=== PATIENT | male | born 1945 | race Caucasian/White ===

== ENCOUNTER 2016-04-23 00:49 | Inpatient (IN) | payer OTHER, MEDICAID ==
[~2016-04-23] VITALS: Ht 162.6 cm; Wt 93.0 kg
[2016-04-23] VITALS (7 sets, daily range): BP systolic 147–172; BP diastolic 76–79; PULSE 53–55; RESP 18–21; TEMP 97.9; Ht 162.6 cm; Wt 93.0 kg
[~2016-04-23 00:49] MED LIST: ACAR25TA7 PO; AMLO-147 PO; AMLO5TAB4 PO; APR50 PO; ASPI-716 PO; ASPI81TA3 PO; ATOR10TA65 PO; CARV12.579 PO; CARV6.25 PO; CLOP75TA27 PO; CLOP75TA28 PO; GABA100C14 PO; GLU5XL PO; HYDR12.58 PO; ISOS30TA5 PO; LANT3I SC; LOSA100T7 PO; NIT4 SL; SIMV40TA7 PO; SMV40T PO
--- NOTE | 2016-04-23 01:11 | ERA ---
ER Documentation Chief Complaint Date/Time DATE: 04/23/16 TIME: 01:11 Chief Complaint chest pain,received 1 spray nitro from paramedics HPI The patient is a 70-year-old male, presenting to the ER because of acute substernal chest pain that began shortly prior to arrival. He was treated with 1 spray of nitroglycerin by EMS with good response. The has minimal chest pain at this time, complaining of anxiety, denies headache, neck pain, complains of minimal dyspnea, denies abdominal pain, vomiting, dysuria, diarrhea, constipation. The chest pain worse with any radiation, he denies any chest pain with exertion of vomiting or diaphoresis. He does not smoke nor drink Past medical history: CAD, hypertension, diabetes mellitus, dyslipidemia, chronic kidney disease, BPH, anxiety Past surgical history: Stent PCI ROS All systems reviewed and are negative except as per history of present illness. Medications Home Meds Active Scripts Clopidogrel Bisulfate (Clopidogrel) 75 Mg Tablet, 75 MG PO DAILY, #30 TAB Prov:ANGELINE CABRAL 01/21/15 Nitroglycerin* (Nitrostat*) 25 Tab Subl, 0.4 MG SL .Q5M UP TO 3 DOSES Y for CHEST PAIN, #30 Prov:JAD SHIN 07/14/14 Hydralazine Hcl* (Hydralazine Hcl*) 50 Mg Tab, 100 MG PO Q8 for 30 Days, TAB Prov:JAD SHIN 07/14/14 Isosorbide Mononitrate* (Isosorbide Mononitrate*) 30 Mg Tabsr, 30 MG PO DAILY for 30 Days Prov:JAD SHIN 07/14/14 Reported Medications Acarbose* (Acarbose*) 25 Mg Tablet, 25 MG PO TID for 30 Days, #30 TAB 02/02/16 Insulin Glargine* (Lantus*) 100 Unit/Ml Soln, 1 UNIT SC BID, #1 VIAL 02/02/16 Aspirin (Aspirin) 81 Mg Chew, 81 MG PO DAILY, TAB.CHEW 02/02/16 Losartan Potassium* (Losartan Potassium*) 100 Mg Tablet, 100 MG PO DAILY, TAB 02/02/16 Amlodipine Besylate* (Amlodipine Besylate*) 10 Mg Tablet, 10 MG PO DAILY, #30 TAB 02/02/16 Atorvastatin (Atorvastatin) 10 Mg Tablet, 1 MG PO QHS, #30 TAB 02/02/16 Clopidogrel Bisulfate (Clopidogrel) 75 Mg Tablet, 75 MG PO DAILY, #30 TAB 02/02/16 Simvastatin (Simvastatin) 40 Mg Tablet, 40 MG PO QHS, #30 TAB 02/02/16 Carvedilol* (Carvedilol*) 12.5 Mg Tablet, 12.5 MG PO BID, #60 TAB 02/02/16 Gabapentin* (Gabapentin*) 100 Mg Capsule, 100 MG PO BID, #90 CAP 02/02/16 Losartan Potassium* (Losartan Potassium*) 100 Mg Tablet, 100 MG PO DAILY, TAB 07/12/14 Gabapentin* (Gabapentin*) 100 Mg Capsule, 100 MG PO BID, CAP 07/12/14 Insulin Glargine* (Lantus*) 100 Unit/Ml Soln, 0 SC BID Y for sliding scale , EA 07/12/14 Amlodipine Besylate* (Norvasc*) 5 Mg Tablet, 5 MG PO DAILY, TAB 07/12/14 Hydrochlorothiazide* (Hydrochlorothiazide*) 12.5 Mg Tablet, 12.5 MG PO DAILY, TAB 07/12/14 Aspirin* (Ecotrin*) 81 Mg Tablet.dr, 81 MG PO DAILY, TAB 01/26/14 Glipizide XL* (Glipizide XL*) 5 Mg Tabsr, 10 MG PO DAILY, TAB 01/26/14 Clopidogrel Bisulfate (Clopidogrel) 75 Mg Tablet, 75 MG PO DAILY, TAB 01/26/14 Simvastatin (Simvastatin) 40 Mg Tablet, 40 MG PO HS, TAB 01/26/14 Carvedilol* (Coreg*) 6.25 Mg Tablet, 6.25 MG PO BID, TAB 07/30/13 Allergies Allergies: Coded Allergies: Penicillins (Verified Allergy, Mild, 07/12/14) PMhx/Soc History of Surgery: Yes (prostate surgery, PCI) Anesthesia Reaction: No Hx Neurological Disorder: No Hx Respiratory Disorders: No Hx Cardiac Disorders: No (CAD) Hx Psychiatric Problems: No Hx Miscellaneous Medical Probl: No Hx Alcohol Use: No Hx Substance Use: No Hx Tobacco Use: No Physical Exam Vitals Vital Signs Date Time Temp Pulse Resp B/P Pulse Ox O2 Delivery O2 Flow Rate FiO2 04/23/16 04:17 52 14 158/73 98 04/23/16 00:56 97.9 61 17 166/78 98 Physical Exam Const: No acute distress. Head: Atraumatic. Eyes: Normal Conjunctiva. ENT: Normal External Ears, Nose and Mouth. Neck: Full range of motion. No meningismus. Resp: Clear to auscultation bilaterally. Cardio: Regular rate and rhythm, no murmurs. Abd: Soft, non distended, normal bowel sounds, non tender. Skin: No petechiae or rashes. Back: No midline or flank tenderness. Ext: No cyanosis, or edema. Neur: Awake and alert. No focal deficit Psych: Normal Mood and Affect. Result Diagram: 04/23/1613104/23/16131 Results 24 hrs Laboratory Tests Test 04/23/16 01:32 Activated Partial Thromboplast Time 27.2Sec Anion Gap 15 B-Type Natriuretic Peptide 615PG/ML Basophils # 0.110^3/ul Basophils % 0.8% Blood Urea Nitrogen 41mg/dl Calcium Level 8.8mg/dl Carbon Dioxide Level 27mmol/L Chloride Level 98mmol/L Creatinine 2.15mg/dl Eosinophils # 0.510^3/ul Eosinophils % 5.2% Glucose Level 192mg/dl Hematocrit 37.8% Hemoglobin 13.1g/dl INR International Normalized Ratio 0.89 Lymphocytes # 1.110^3/ul Lymphocytes % 12.3% Mean Corpuscular Hemoglobin 29.4pg Mean Corpuscular Hemoglobin Concent 34.7g/dl Mean Corpuscular Volume 84.9fl Mean Platelet Volume 10.2fl Monocytes # 0.810^3/ul Monocytes % 9.4% Neutrophils # 6.210^3/ul Neutrophils % 72.0% Nucleated Red Blood Cells # 0.010^3/ul Nucleated Red Blood Cells % 0.0/100WBC Platelet Count 46427^3/UL Potassium Level 3.5mmol/L Prothrombin Time 12.0Sec Prothrombin Time Ratio 0.9 Red Blood Count 4.4510^6/ul Red Cell Distribution Width 11.9% Sodium Level 136mmol/L Troponin I 0.024ng/ml White Blood Count 8.610^3/ul Current Medications Medications (Trade) Dose Ordered Sig/Monty Route PRN Reason Start Time Stop Time Status Last Admin Dose Admin Aspirin (Aspirin) 162 mg ONCE ONCE PO 04/23/16 03:30 04/23/16 03:31 DC 04/23/16 04:32 Nitroglycerin (Nitroglycerin 2% Oint) 1 inch ONCE ONCE TD 04/23/16 03:30 04/23/16 03:31 DC 04/23/16 04:32 Amlodipine Besylate (Norvasc) 10 mg DAILY PO 04/23/16 09:00 UNV Aspirin (Aspirin) 81 mg DAILY PO 04/23/16 09:00 Atorvastatin Calcium (Lipitor) 1 mg QHS PO 04/23/16 21:00 UNV Carvedilol (Coreg) 12.5 mg BID PO 04/23/16 09:00 UNV Clopidogrel Bisulfate (plaVIX) 75 mg DAILY PO 04/23/16 09:00 Gabapentin (Neurontin) 100 mg BID PO 04/23/16 09:00 UNV Losartan Potassium (Cozaar) 100 mg DAILY PO 04/23/16 09:00 UNV Nitroglycerin (Nitroglycerin (Sl Tab) 0.4 Mg) 1 tab Q5M UP TO 3 DOSES PRN SL CHEST PAIN 04/23/16 04:30 IV Flush (NS 3 ml) 3 ml PER PROTOCOL IV 04/23/16 04:30 IV Flush (NS 3 ml) 3 ml PER PROTOCOL IV 04/23/16 04:30 Procedures/[place] [address] Radiology Main Line: [phone] DIAGNOSTIC IMAGING REPORT Patient: CHESTER GRAHAM : 1945 Age: 70 Sex: M [id number] DOS: 04/23/16 0115 Ordering MD: JIMY DE LA ROSA MD Location: E/R Room/Bed: PROCEDURE: Portable chest x-ray. CLINICAL INDICATION: Shortness of breath. TECHNIQUE: Portable AP view of the chest. COMPARISON: 02/02/2016 FINDINGS: There are stable interstitial opacities in both lung bases, right more than left , probably representing scarring. No pulmonary edema or conolidation is identified. The cardiac silhouette is enlarged. No pleural effusion is seen. There is no pneumothorax. IMPRESSION: 1. No evidence of acute cardiopulmonary disease. 2. Chronic interstitial scarring in both lung bases, right more than left. 3. Enlarged cardiac silhouette. RPTAT: HTAR .Joselito Garvey MD, MD Date Time Electronically viewed and signed by .Joselito Garvey MD, MD on 04/23/2016 02:02 .R/ CC: JIMY DE LA ROSA MD EKG: Read by emergency physician Rate/Rhythm: Sinus bradycardia 57 beats/min QRS, ST, T-waves: No ST elevation, no T inversion, LAD, left bundle branch block Impression: Abnormal EKG MEDICAL MAKING DECISION: The patient is a 70-year-old male with multiple cardiac risk factors, presenting with acute chest pain that is concerning for ACS. He was treated with aspirin 160 mg p.o., 1 inch of nitroglycerin ointment to the chest wall with good response. The differential diagnoses considered include but are not limited to acute coronary syndrome, acute myocardial infarction, pericarditis, pulmonary embolism, aortic dissection, pneumonia, pleural effusion, pneumothorax, GERD, chest wall pain. Departure Diagnosis: Primary Impression: Chest pain Condition: Stable Comments I discussed the findings with the patient. I discussed the patient with the hospitalist Dr Isaac who was made aware of the lab, the treatment, the patient condition. The patient is admitted to telemetry at 3:15 AM JIMY DE LA ROSA MD Apr 23, 2016 01:11
[2016-04-23 01:53] LABS: ADD SCAN DIFF NO
[2016-04-23 01:58] LABS: BASOPHIL # 0.1 10^3/ul (0.0-0.1); BASOPHILS % 0.8 % (0.0-2.0); EOSINOPHILS # 0.5 10^3/ul (0.0-0.5); EOSINOPHILS % 5.2 % (0.0-7.0); HEMATOCRIT 37.8 % (42.0-52.0); HEMOGLOBIN 13.1 g/dl (14.0-18.0); LYMPHOCYTES # 1.1 10^3/ul (0.8-2.9); LYMPHOCYTES % 12.3 % (15.0-51.0); MEAN CORPUSCULAR HEMOGLOBIN 29.4 pg (29.0-33.0); MEAN CORPUSCULAR HGB CONC 34.7 g/dl (32.0-37.0); MEAN CORPUSCULAR VOLUME 84.9 fl (82.0-101.0); MEAN PLATELET VOLUME 10.2 fl (7.4-10.4); MONOCYTE # 0.8 10^3/ul (0.3-0.9); MONOCYTES % 9.4 % (0.0-11.0); NEUTROPHIL # 6.2 10^3/ul (1.6-7.5); PLATELET COUNT 254 10^3/UL (140-415); RED BLOOD COUNT 4.45 10^6/ul (4.70-6.10); RED CELL DISTRIBUTION WIDTH 11.9 % (11.5-14.5); WHITE BLOOD COUNT 8.6 10^3/ul (4.8-10.8)
--- NOTE | 2016-04-23 02:03 | RADRPT ---
PROCEDURE: Portable chest x-ray. CLINICAL INDICATION: Shortness of breath. TECHNIQUE: Portable AP view of the chest. COMPARISON: 02/02/2016 FINDINGS: There are stable interstitial opacities in both lung bases, right more than left, probably represent ing scarring. No pulmonary edema or conolidation is identified. The cardiac silhouette is enlarged. No pleural effusion is seen. There is no pneumothorax. IMPRESSION: 1. No evidence of acute cardiopulmonary disease. 2. Chronic interstitial scarring in both lung bases, right more than left. 3. Enlarged cardiac silhouette. RPTAT: HTAR .Joselito Garvey MD, Date Time Electronically viewed and signed by .Joselito Garvey MD, on 04/23/2016 02:02 .R/
[2016-04-23 02:08] LABS: INR 0.89; PARTIAL THROMBOPLASTIN TIME 27.2 Sec (25.0-35.0); PT RATIO 0.9
[2016-04-23 02:19] LABS: POTASSIUM 3.5 mmol/L (3.5-5.1)
[2016-04-23 02:21] LABS: CREATININE 2.15 mg/dl (0.61-1.24)
[2016-04-23 02:22] LABS: CALCIUM 8.8 mg/dl (8.4-10.2)
[2016-04-23 02:32] LABS: TROPONIN-I 0.024 ng/ml (0.00-0.12)
[2016-04-23] MEDS ORDERED: NITROGLYCERIN 2% 1 GM OINT PKT TD ONE (03:30)
[2016-04-23] MEDS ORDERED: ASPIRIN 81 MG TAB PO ONE (03:30)
[2016-04-23] MEDS ORDERED: NACL 0.9% 3 ML SYG IV SCH ×2 (04:30)
[2016-04-23] MEDS ORDERED: NITROGLYCERIN (SL) 0.4 MG TAB SL PRN (04:30)
[2016-04-23 08:56] LABS: CK-MB 1.34 ng/ml (0.0-2.4)
[2016-04-23 08:57] LABS: TROPONIN-I 0.027 ng/ml (0.00-0.12)
[2016-04-23] MEDS ORDERED: AMLODIPINE 10 MG TAB PO SCH (09:00)
[2016-04-23] MEDS ORDERED: GABAPENTIN 100 MG CAP PO SCH (09:00)
[2016-04-23] MEDS ORDERED: ASPIRIN 81 MG TAB PO SCH (09:00)
[2016-04-23] MEDS ORDERED: CLOPIDOGREL 75 MG TAB PO SCH (09:00)
[2016-04-23] MEDS ORDERED: LOSARTAN 50 MG TAB PO SCH (09:00)
--- NOTE | 2016-04-23 12:17 | CONS ---
Date/Time of Note Date/Time of Note DATE: 04/23/16 TIME: 12:09 Assessment/Plan Assessment/Plan Additional Assessment/Plan Neck, head and arm pain CAD with history of PCI Hypertension Diabetes Chronic kidney disease -Patient with cardiac catheterization in January 2016 with no evidence of worsening or obstructive coronary artery disease. His symptoms currently are atypical for cardiac pain where he denies any exertional chest pain or shortness of breath but complains of neck, shoulder and arm numbness and discomfort and fatigue. Initial cardiac enzymes are negative, will obtain serial cardiac enzymes, would also investigate other noncardiac causes of his symptoms. If troponins remain negative, no further inpatient cardiac workup needed at the current time Consultation Date/Type/Reason Admit Date/Time Apr 23, 2016 at 07:28 Type of Consultation: cv Reason for Consultation History of CAD and presents with arm pain Hx of Present Illness This is a 70-year-old male with past medical history of coronary artery disease , hypertension, renal disease who presents with fatigue, arm pain and headache. History was obtained from the patient via communication spec. Yesterday, patient was outside the house getting some fresh air. As he came back inside the house and sat down, he felt very fatigued with numbness in his neck, shoulders and arms. He denies any shortness of breath, chest pain, dizziness or lightheadedness. He then became anxious and came to the emergency room for further evaluation. He denies any chest pain or chest pressure throughout this incident or currently. He denies any exertional chest pain, shortness of breath or dizziness. 12 point review of systems was performed with all pertinent positives and negatives mentioned above and all else is negative Past Medical History Medical History: coronary artery disease, diabetes, high cholesterol, hypertension, renal disease Past Surgical History Past Surgical Hx: angioplasty Family History Significant Family History: no pertinent family hx Social History Smoking Status: Never smoker Other Social History Not working currently Exam/Review of Systems Vital Signs Vitals Vital Signs Date Time Temp Pulse Resp B/P Pulse Ox O2 Delivery O2 Flow Rate FiO2 04/23/16 12:08 53 04/23/16 11:46 98.4 18 160/76 97 Exam No apparent distress Constitutional: alert, obese, oriented Head: normocephalic Neck: other (Pain with palpation of the pericervical muscles with flexion and extension), supple Respiratory: clear to auscultation, normal air movement Cardiovascular: other (S1-S2 heard), regular rate and rhythm Gastrointestinal: bowel sounds, non-tender, other (No guarding), soft Extremities: edema (Trace), other (No cyanosis) Results Result Diagram: 04/23/1613104/23/16131 Results 24 hrs Laboratory Tests Test 04/23/16 01:32 04/23/16 07:50 04/23/16 08:15 Activated Partial Thromboplast Time 27.2 Anion Gap 15 B-Type Natriuretic Peptide 615 H Basophils # 0.1 Basophils % 0.8 Blood Urea Nitrogen 41 H Calcium Level 8.8 Carbon Dioxide Level 27 Chloride Level 98 Creatinine 2.15 H Eosinophils # 0.5 Eosinophils % 5.2 Glucose Level 192 Hematocrit 37.8 L Hemoglobin 13.1 L INR International Normalized Ratio 0.89 Lymphocytes # 1.1 Lymphocytes % 12.3 L Mean Corpuscular Hemoglobin 29.4 Mean Corpuscular Hemoglobin Concent 34.7 Mean Corpuscular Volume 84.9 Mean Platelet Volume 10.2 # Monocytes # 0.8 Monocytes % 9.4 Neutrophils # 6.2 Neutrophils % 72.0 Nucleated Red Blood Cells # 0.0 Nucleated Red Blood Cells % 0.0 Platelet Count 254 Potassium Level 3.5 Prothrombin Time 12.0 L Prothrombin Time Ratio 0.9 Red Blood Count 4.45 L Red Cell Distribution Width 11.9 Sodium Level 136 Troponin I 0.024 0.027 White Blood Count 8.6 Bedside Glucose 169 Creatine Kinase 101 Creatine Kinase Index 1.3 Creatinine Kinase MB (Mass) 1.34 Medications Medications Current Medications Amlodipine Besylate (Norvasc) 10 mg DAILY PO Last administered on 04/23/16 09: 15; Admin Dose 10 MG; Start 04/23/16 at 09:00 Aspirin (Aspirin) 81 mg DAILY PO Last administered on 04/23/16 09:14; Admin Dose 81 MG; Start 04/23/16 at 09:00 Atorvastatin Calcium (Lipitor) 1 mg QHS PO ; Start 04/23/16 at 21:00 Carvedilol (Coreg) 12.5 mg BID PO Last administered on 04/23/16 09:16; Admin Dose 12.5 MG; Start 04/23/16 at 09:00 Clopidogrel Bisulfate (plaVIX) 75 mg DAILY PO Last administered on 04/23/16 09 :14; Admin Dose 75 MG; Start 04/23/16 at 09:00 Gabapentin (Neurontin) 100 mg BID PO Last administered on 04/23/16 09:16; Admin Dose 100 MG; Start 04/23/16 at 09:00 Losartan Potassium (Cozaar) 100 mg DAILY PO Last administered on 04/23/16 09: 16; Admin Dose 100 MG; Start 04/23/16 at 09:00 Procedures Procedures ECG demonstrates sinus rhythm, left bundle branch block morphology, nonspecific STT wave abnormalities Agustin Traylor DO Apr 23, 2016 12:17
[2016-04-23 15:11] LABS: TROPONIN-I 0.023 ng/ml (0.00-0.12)
[2016-04-23 15:12] LABS: CK-MB 1.11 ng/ml (0.0-2.4)
--- NOTE | 2016-04-23 16:04 | PDOCDIS ---
Discharge Instructions DIAGNOSIS Discharge Diagnosis: Chest pain. ACS ruled out. CONDITION Patient Condition: Stable HOME CARE INSTRUCTIONS: Special Diet: Low-cholesterol, carbohydrate controlled diet. OTHER ORDERS: Other Orders: 1. Resume home medications. 2. A carbohydrate controlled, low-cholesterol diet. 3. Resume activities as tolerated. 4. Follow-up with your primary care physician in 2 weeks. DALLIN ADAMS NP Apr 23, 2016 16:03
[2016-04-23] MEDS ORDERED: GLUCAGON 1 MG INJ IM PRN (17:00)
[2016-04-23] MEDS ORDERED: GLUCOSE GEL 15 GRAM TUBE BUCCAL PRN (17:00)
[2016-04-23] MEDS ORDERED: DEXTROSE 50% 50 ML SYRINGE IV PRN ×2 (17:00)
[2016-04-23] MEDS ORDERED: GLUCOSE GEL 15 GRAM TUBE PO PRN ×2 (17:00)
--- NOTE | 2016-04-23 17:43 | HP ---
DATE OF ADMISSION: 04/23/2016 TIME OF EVALUATION: 0900 a.m. REASON FOR ADMISSION: Chest pain. CONSULTATIONS: Dr. Agustin Traylor, Cardiology. HISTORY OF PRESENT ILLNESS: This is a 70-year-old male with past medical history of CAD status post [employer], essential hypertension, diabetes, and chronic kidney disease, who came to the emergency room with a chief complaint of fatigue, neck pain, and headache. On 04/22/2016, the patient experienced fatigue, numbness in the bilateral shoulders and arms, as well as pain in the neck. The patient denied any dyspnea, chest pain, dizziness, or lightheadedness. He became anxious and came to the emergency room for further evaluation. The patient denied any exertional chest pain. The patient denied any fevers, chills, nausea, vomiting, abdominal pain, diarrhea, hematochezia, dysuria, or hematuria. Although it is mentioned in the emergency room notes that the patient had chest pain that is relieved by nitroglycerin, the patient denied any chest pain. In the emergency room, the patient's initial set of troponins were negative. The patient was treated with oral aspirin and transdermal nitroglycerin in the emergency room. PAST MEDICAL HISTORY: Essential hypertension, CAD status post coronary artery stenting, type 2 diabetes mellitus, benign prostatic hypertrophy, anxiety, obesity. PAST SURGICAL HISTORY: Angioplasty. HOME MEDICATIONS: 1. Plavix 75 mg p.o. daily. 2. Amlodipine 10 mg p.o. daily. 3. Coreg 12.5 mg p.o. b.i.d. 4. Hydralazine 100 mg p.o. q.8 hours. 5. Isosorbide mononitrate 30 mg p.o. daily. 6. Losartan 100 mg p.o. daily. 7. Simvastatin 40 mg p.o. at bedtime. 8. Acarbose 25 mg p.o. t.i.d. 9. Glipizide XL 10 mg p.o. daily. 10. Lantus insulin subcutaneously at bedtime, as directed. ALLERGIES: THE PATIENT IS ALLERGIC TO PENICILLIN. SOCIAL HISTORY: The patient lives at home with his family. No history of tobacco, alcohol, or illicit drug use. REVIEW OF SYSTEMS: A 12-point review of systems was made and other review of systems are negative, other than what is mentioned in history of present illness. PHYSICAL EXAMINATION: VITAL SIGNS: Temperature 97.7, pulse rate 54, respiratory rate 21, blood pressure 172/70, oxygen saturation 97% on room air. GENERAL: This is an obese male, lying in bed, in no apparent distress. HEENT: Head normocephalic and atraumatic. Eyes: Anicteric sclerae. Conjunctivae clear. ENT: Nasal septum is midline. Oral mucosa is moist. NECK: Supple. No JVD noticed. RESPIRATORY: Bilaterally clear to auscultation. No adventitious breath sounds. No use of accessory muscles of respiration. CARDIAC: Regular rate and rhythm. No murmurs heard. GASTROINTESTINAL: Abdomen soft, nontender and nondistended. Bowel sounds positive in all 4 quadrants. GENITOURINARY: Deferred. EXTREMITIES: No cyanosis, no clubbing. Trace bilateral pedal edema. Peripheral pulses palpable. NEUROLOGIC: The patient is awake, alert, and oriented. Cranial nerves are grossly intact. LABORATORY AND DIAGNOSTIC DATA: WBC 8.6, hemoglobin 13.1, hematocrit 37.8, platelet count 254. Sodium 136, potassium 3.5, chloride 98, carbon dioxide 20, anion gap 15, BUN 41, creatinine 2.17, glucose 192, calcium 8.8. Troponin 0.024. BNP 615. PT 12.0, INR 0.89, PTT 27.2. Chest x-ray: No evidence of acute cardiopulmonary disease. Chronic interstitial scarring in both lung bases, right more than left. Enlarged cardiac silhouette. IMPRESSION: This is a 70-year-old male with extensive cardiac history and comorbidities including essential hypertension, diabetes, and chronic kidney disease, who came to the emergency room with complaints of fatigue, neck pain and bilateral upper extremity numbness, who will be admitted here for further treatment and evaluation. ASSESSMENT AND PLAN: 1. Rule out acute coronary syndrome. The patient has extensive cardiac history and other comorbidities. The patient's symptoms were vague. The patient received nitroglycerin with relief of symptoms, from the EMS. The patient will be ruled out for any underlying acute coronary syndrome. Serial troponins will be obtained. Cardiology consult will be obtained. The patient recently had a left heart catheterization, done in January 2016, by Cardiology. Ordering of echocardiogram will be deferred to Cardiology. 2. Accelerated hypertension. The patient will be started on antihypertensives. Antihypertensive medications will be adjusted to obtain optimal blood pressure control. 3. Type 2 diabetes mellitus. The patient will be started on sliding scale insulin. 4. Dyslipidemia. The patient will be continued on statins. The patient will be reinforced to take a low-cholesterol diet. 5. Chronic kidney disease. The patient will be monitored closely for any worsening of kidney function. Nephrotoxic drugs will be used with caution. 6. Obesity. BMI of 35.2 kg/m2. Weight reduction will be advised. A low- cholesterol, carbohydrate controlled diet will be reinforced. Plan. The patient will be admitted to inpatient telemetry floor. The patient will be started on a carbohydrate controlled low cholesterol diet. The patient will remain a FULL CODE. Activities will be as tolerated. The patient will be started on DVT prophylaxis and gastrointestinal prophylaxis. The rest of the patient's management will be based on the clinical course, the results of diagnostic studies, and inputs from consultants. Based on the patient's clinical presentation, he most probably requires at least one midnight's stay for further management and evaluation of his clinical presentation. The case and management of this patient was fully discussed with Dr. Ceron. Approximately 45 minutes was spent on the history and physical of this patient. DALLIN CERON MD, AM/PATRICK Conf#: [id number] DID#: [id number]
[2016-04-23] MEDS ORDERED: INSULIN ASPART [NOVOLOG] 3 ML PEN SC SCH (18:05)
--- NOTE | 2016-04-23 18:19 | DS ---
DATE OF ADMISSION: 04/23/2016 DATE OF DISCHARGE: 04/23/2016 FINAL DIAGNOSES: 1. Bilateral upper extremity and neck pain. Acute coronary syndrome ruled out. 2. Accelerated hypertension. 3. Type 2 diabetes mellitus. 4. Chronic kidney disease. 5. Coronary artery disease status post coronary artery stenting. 6. Obesity. CONSULTATIONS: Dr. Agustin Traylor, Cardiology. HOSPITAL COURSE: This is a 70-year-old male with past medical history of CAD status post coronary artery stenting, essential hypertension, type 2 diabetes mellitus, and chronic kidney disease who came to the emergency room with vague complaints. The patient was complaining of fatigue and numbness in bilateral shoulders and arms with neck pain. As per the ER notes, the patient was complaining of chest pain, and he was given nitroglycerin by EMS. Nevertheless upon further interrogation, the patient denied any chest pain, dyspnea, nausea, vomiting, diaphoresis. The patient's complaints were feeling fatigued and having neck pain and numbness and pain in the shoulders and arms. Provided the patient's history of present illness and his comorbidities, a clinical decision was made to admit the patient to inpatient setting to have him further evaluated. The patient was admitted to inpatient telemetry floor. Serial troponins were ordered. Cardiology consult was obtained. The patient had a left heart catheterization in January 2016 with no evidence of worsening or obstructive coronary artery disease. Hence, the brim buster recommended no further evaluation. In addition, the patient's serial troponins x3 remained negative. Hence, the patient was ruled out for any underlying acute coronary syndrome. The patient has underlying essential hypertension. He was maintained on antihypertensives for the same. The patient has known history of CAD. The patient was maintained on antiplatelet therapy. The patient has also diabetes. The patient was maintained on sliding scale insulin. The patient was maintained on statins for his underlying dyslipidemia. The patient has known chronic kidney disease. The patient's BUN and creatinine were monitored closely. The patient's symptomatology improved throughout the patient's hospital course. The patient was ruled out for any underlying acute coronary syndrome. The patient was cleared by brim buster to be discharged home. The patient denied any complaints at the time of discharge. DISCHARGE DISPOSITION AND PLAN: The patient will be discharged home today. The patient was instructed to resume his home medications. He was instructed to take a carbohydrate controlled low cholesterol diet. He was instructed to resume activities as tolerated. The patient was instructed to follow up with his primary care physician in 2 weeks. The patient was instructed to call 911 or go to the nearest emergency room if he has any chest pain. The patient verbalized understanding of his discharge instructions. CONDITION AT DISCHARGE: Stable. DISCHARGE MEDICATIONS: 1. Acarbose 25 mg p.o. t.i.d. 2. Amlodipine 10 mg p.o. daily. 3. Coreg 12.5 mg p.o. b.i.d. 4. Plavix 75 mg p.o. daily. 5. Glipizide 10 mg p.o. daily. 6. Hydralazine 100 mg p.o. q. 8 hours. 7. Lantus insulin as instructed b.i.d. 8. Isosorbide mononitrate 30 mg p.o. daily. 9. Losartan 100 mg p.o. daily. 10. Simvastatin 40 mg p.o. at bedtime. PERTINENT LABORATORY AND DIAGNOSTIC DATA: CBC: WBC 8.6, hemoglobin 13.1, hematocrit 37.8, and platelet count 254. BMP: Sodium 136, potassium 3.5, chloride 98, carbon dioxide 20, anion gap 15, BUN 41, creatinine 2.15, glucose 192, calcium 8.8. Troponin 0.024. BNP 615. Coag panel: PT 12.0, INR 0.89, PTT 27.0. Chest x-ray: No evidence of acute cardiopulmonary disease. Chronic interstitial scarring in both lungs, right more than left. Enlarged cardiac silhouette. At this time, I would like to thank Dr. Traylor for seeing the patient and providing clinical recommendations. The case and management of this patient was discussed with Dr. Ceron. Approximately 35 minutes was spent on coordinating the discharge on this patient. DALLIN CERON MD, AM/PATRICK Conf#: [id number] DID#: [id number] MTDD
[2016-04-23] MEDS ORDERED: ATORVASTATIN 10 MG TAB PO SCH (21:00)
[2016-04-24] MEDS ORDERED: ACCUCHECK XX SCH (02:00)
== END 2016-04-23 17:24 | disposition home or self-care (01) | DRG 313 ==
LOC: E/R 00:49 → MS4 07:28
PROVIDERS: ADMIT Family Medicine; ATTEND Family Medicine
DX: R07.9 Chest pain, unspecified (principal); E11.9 Type 2 diabetes mellitus without complications; Z94.0 Kidney transplant status; E66.9 Obesity, unspecified; Z68.35 Body mass index [BMI] 35.0-35.9, adult; I12.9 Hypertensive chronic kidney disease with stage 1 through stage 4 chronic kidney disease, or unspecified chronic kidney disease; N18.9 Chronic kidney disease, unspecified; E78.5 Hyperlipidemia, unspecified; N40.0 Benign prostatic hyperplasia without lower urinary tract symptoms; F41.9 Anxiety disorder, unspecified; M54.2 Cervicalgia; M79.602 Pain in left arm; M79.601 Pain in right arm
CPT/HCPCS: 36415; 71010; 80048; 82550; 82553; 82962; 83880; 84484; 85025; 85610; 85730; 93005; J1815

== ENCOUNTER 2016-09-07 09:00 | Observation (INO) | payer OTHER, MEDICAID ==
[~2016-09-07] VITALS: Ht 165.1 cm; Wt 88.0 kg
[~2016-09-07 09:00] MED LIST changes: -AMLO5TAB4 PO; -APR50 PO; -ASPI-716 PO; -ASPI81TA3 PO; -ATOR10TA65 PO; -CARV6.25 PO; -CLOP75TA28 PO; -GABA100C14 PO; +HYDR-3672 PO; -HYDR12.58 PO; -SMV40T PO
[2016-09-07 09:04] VITALS: Ht 165.1 cm; Wt 88.0 kg
[2016-09-07 09:56] LABS: BASOPHIL # 0.1 10^3/ul (0.0-0.1); BASOPHILS % 1.2 % (0.0-2.0); EOSINOPHILS # 0.5 10^3/ul (0.0-0.5); EOSINOPHILS % 8.2 % (0.0-7.0); HEMATOCRIT 41.9 % (42.0-52.0); HEMOGLOBIN 14.5 g/dl (14.0-18.0); LYMPHOCYTES # 1.1 10^3/ul (0.8-2.9); LYMPHOCYTES % 16.3 % (15.0-51.0); MEAN CORPUSCULAR HGB CONC 34.6 g/dl (32.0-37.0); MEAN CORPUSCULAR VOLUME 83.8 fl (82.0-101.0); MEAN PLATELET VOLUME 10.2 fl (7.4-10.4); MONOCYTE # 0.8 10^3/ul (0.3-0.9); MONOCYTES % 11.8 % (0.0-11.0); NEUTROPHILS % 62.3 % (39.0-77.0); PLATELET COUNT 203 10^3/UL (140-415); RED CELL DISTRIBUTION WIDTH 12.9 % (11.5-14.5); WHITE BLOOD COUNT 6.5 10^3/ul (4.8-10.8)
[2016-09-07 10:11] LABS: INR 0.91; PROTIME 12.2 Sec (12.2-14.2)
[2016-09-07 10:12] LABS: PARTIAL THROMBOPLASTIN TIME 25.2 Sec (25.0-35.0)
[2016-09-07 10:15] LABS: ALBUMIN/GLOBULIN RATIO 1.29; BILIRUBIN,INDIRECT 0.6 mg/dl (0-1.1); BILIRUBIN,TOTAL 0.6 mg/dl (0.2-1.3); CALCIUM 9.6 mg/dl (8.4-10.2); CREATININE 2.34 mg/dl (0.61-1.24); POTASSIUM 3.9 mmol/L (3.5-5.1); TOTAL PROTEIN 7.1 g/dl (6.1-8.1)
[2016-09-07 10:26] LABS: TROPONIN-I 0.045 ng/ml (0.00-0.12)
--- NOTE | 2016-09-07 10:40 | RADRPT ---
PROCEDURE: XR Chest. CLINICAL INDICATION: Chest pain TECHNIQUE: Single portable view of the chest was obtained COMPARISON: 04/23/2016 FINDINGS: The heart is enlarged. There are chronic interstitial changes in the lung bases, right worse than left, unchanged. There is no focal infiltrate. There is no pleural effusion or pneumothorax. RPTAT: AA IMPRESSION: Mild Cardiomegaly. Chronic interstitial changes in the lung bases, right worse than left. .Timothy Horner MD, MD Date Time Electronically viewed and signed by .Timothy Horner MD, MD on 09/07/2016 10:39 .S/
[2016-09-07] MEDS ORDERED: LABETALOL HCL 20MG INJ IV ONE (11:00)
--- NOTE | 2016-09-07 11:23 | ERA ---
ER Documentation Chief Complaint Date/Time DATE: 09/07/16 TIME: 918 Chief Complaint dizziness since yesterday HPI 70-year-old male presents to the emergency department complaining of dizziness, shortness of breath. Patient states he was in his usual state of health until yesterday which time he thinks his blood pressure got out of control. He began having a nonspecific dizziness without vertigo or headache or localizing neurologic symptoms. This was accompanied by a nonspecific sensation of shortness of breath and questionable concurrent chest pain. Patient had similar symptoms in April when he was admitted to rule out for myocardial infarction given his known ischemic disease. ROS All systems reviewed and are negative except as per history of present illness. Medications Home Meds Active Scripts Nitroglycerin* (Nitrostat*) 25 Tab Subl, 0.4 MG SL .Q5M UP TO 3 DOSES Y for CHEST PAIN, #30 Prov:JAD SHIN 07/14/14 Hydralazine Hcl* (Hydralazine Hcl*) 50 Mg Tab, 100 MG PO Q8 for 30 Days, TAB Prov:JAD SHIN 07/14/14 Isosorbide Mononitrate* (Isosorbide Mononitrate*) 30 Mg Tabsr, 30 MG PO DAILY for 30 Days Prov:JAD SHIN 07/14/14 Reported Medications Acarbose* (Acarbose*) 25 Mg Tablet, 25 MG PO TID for 30 Days, #30 TAB 02/02/16 Insulin Glargine* (Lantus*) 100 Unit/Ml Soln, 1 UNIT SC BID, #1 VIAL 02/02/16 Losartan Potassium* (Losartan Potassium*) 100 Mg Tablet, 100 MG PO DAILY, TAB 02/02/16 Amlodipine Besylate* (Amlodipine Besylate*) 10 Mg Tablet, 10 MG PO DAILY, #30 TAB 02/02/16 Simvastatin (Simvastatin) 40 Mg Tablet, 40 MG PO QHS, #30 TAB 02/02/16 Carvedilol* (Carvedilol*) 12.5 Mg Tablet, 12.5 MG PO BID, #60 TAB 02/02/16 Insulin Glargine* (Lantus*) 100 Unit/Ml Soln, 0 SC BID Y for sliding scale , EA 07/12/14 Glipizide XL* (Glipizide XL*) 5 Mg Tabsr, 10 MG PO DAILY, TAB 01/26/14 Clopidogrel Bisulfate (Clopidogrel) 75 Mg Tablet, 75 MG PO DAILY, TAB 01/26/14 Allergies Allergies: Coded Allergies: Penicillins (Verified Allergy, Mild, 07/12/14) PMhx/Soc History of Surgery: Yes (PROSTATE SX; PCI) Anesthesia Reaction: No Hx Neurological Disorder: No Hx Respiratory Disorders: No Hx Cardiac Disorders: Yes (CAD; HTN ) Hx Psychiatric Problems: No Hx Miscellaneous Medical Probl: No Hx Alcohol Use: Yes Hx Substance Use: No Hx Tobacco Use: No Smoking Status: Never smoker FmHx Noncontributory for chief complaint Physical Exam Vitals Vital Signs Date Time Temp Pulse Resp B/P Pulse Ox O2 Delivery O2 Flow Rate FiO2 09/07/16 09:04 97.0 73 20 181/97 97 Physical Exam GENERAL: The patient is well developed and appropriate for usual state of health in no apparent distress HEENT: Pupils equal, round, and reactive to light. EOMI. There is no scleral icterus. NECK: C-spine is soft and supple, there is no meningismus. There is no cervical lymphadenopathy. LUNGS: Clear to auscultation bilaterally. There are no rales, wheezes or rhonchi. HEART: Regular rate and rhythm, no murmurs, clicks, rubs or gallops. ABDOMEN: Soft, non-tender, non-distended. There are bowel sounds in all four quadrants. No rebound or guarding. EXTREMITIES: There is no peripheral cyanosis or edema. No focal swelling or erythema. NEURO: The patient moves all four extremities with 5/5 strength. Cranial nerves II - XII are intact. Normal gait. Alert and oriented SKIN: There is no apparent rash or petechiae. HEME/LYMPHATIC: There is no evidence of excessive bruising or lymphedema. PSYCHIATRIC: Patient is mildly anxious but with a normal mental status. Result Diagram: 09/07/1694409/07/16944 Results 24 hrs Laboratory Tests Test 09/07/16 09:45 White Blood Count 6.510^3/ul Red Blood Count 5.0010^6/ul Hemoglobin 14.5g/dl Hematocrit 41.9% Mean Corpuscular Volume 83.8fl Mean Corpuscular Hemoglobin 29.0pg Mean Corpuscular Hemoglobin Concent 34.6g/dl Red Cell Distribution Width 12.9% Platelet Count 32311^3/UL Mean Platelet Volume 10.2fl Neutrophils % 62.3% Lymphocytes % 16.3% Monocytes % 11.8% Eosinophils % 8.2% Basophils % 1.2% Nucleated Red Blood Cells % 0.0/100WBC Neutrophils # 4.010^3/ul Lymphocytes # 1.110^3/ul Monocytes # 0.810^3/ul Eosinophils # 0.510^3/ul Basophils # 0.110^3/ul Nucleated Red Blood Cells # 0.010^3/ul Prothrombin Time 12.2Sec Prothrombin Time Ratio 1.0 INR International Normalized Ratio 0.91 Activated Partial Thromboplast Time 25.2Sec Sodium Level 141mmol/L Potassium Level 3.9mmol/L Chloride Level 97mmol/L Carbon Dioxide Level 28mmol/L Anion Gap 20 Blood Urea Nitrogen 40mg/dl Creatinine 2.34mg/dl Glucose Level 154mg/dl Calcium Level 9.6mg/dl Total Bilirubin 0.6mg/dl Direct Bilirubin 0.00mg/dl Indirect Bilirubin 0.6mg/dl Aspartate Amino Transf (AST/SGOT) 34IU/L Alanine Aminotransferase (ALT/SGPT) 44IU/L Alkaline Phosphatase 111IU/L Troponin I 0.045ng/ml Total Protein 7.1g/dl Albumin 4.0g/dl Globulin 3.10g/dl Albumin/Globulin Ratio 1.29 Current Medications Medications (Trade) Dose Ordered Sig/Monty Route PRN Reason Start Time Stop Time Status Last Admin Dose Admin Labetalol HCl (Labetalol) 10 mg ONCE ONCE IV 09/07/16 11:00 09/07/16 11:01 DC Procedures/MDM Patient was taken to a room, seen and evaluated. Comfort measures were initiated. Diagnostic tests were ordered and reviewed. 3 LEAD RHYTHM STRIP: Normal sinus rhythm without ectopy EK lead EKG reviewed by myself: Normal Sinus Rhythm Left bundle branch block No ST elevation, depression, or T wave inversion Impression: Left bundle branch block RADIOLOGY: reviewed with the radiologist CONSULTATION: hospitalist was notified for admission REEVALUATION: Patient has remained hemodynamically stable and well-appearing MEDICAL DECISION MAKIN-year-old male with known ischemic heart disease as well as uncontrolled high blood pressure presents to the emergency department with nonspecific neurologic and possibly cardiac symptoms. At this time, neurologically, patient has no evidence of acute stroke. From a cardiac standpoint, his EKG is the same left bundle as previous and his troponin is reassuring. However, given his known existing disease, and previous hospitalizations for similar type presentation, patient will be admitted for further observation to once again rule out myocardial infarction or acute coronary syndrome as the cause of these symptoms. Departure Diagnosis: Primary Impression: Dizziness Additional Impressions: Hypertension Ischemic heart disease Condition: HU Anglin Sep 07, 2016 11:23
[2016-09-07] MEDS ORDERED: HYDR12.58 PO (12:08)
[2016-09-07] MEDS ORDERED: TRAM-40 PO (12:09)
[2016-09-07] MEDS ORDERED: ATOR20TA38 PO (12:09)
[2016-09-07] MEDS ORDERED: COLC0.6T6 PO (12:09)
[2016-09-07] MEDS ORDERED: INSU300I SQ (12:10)
[2016-09-07] MEDS ORDERED: LIRA0.6P2 SQ (12:10)
[2016-09-07] MEDS ORDERED: traMADol 50 MG TAB PO PRN (12:30)
[2016-09-07 13:23] LABS: TROPONIN-I 0.033 ng/ml (0.00-0.12)
[2016-09-07 13:41] LABS: CK-MB 1.53 ng/ml (0.0-2.4)
[2016-09-07 15:08] VITALS: TEMP 97.9
[2016-09-07] MEDS ORDERED: GLUCOSE GEL 15 GRAM TUBE PO PRN ×2 (15:30)
[2016-09-07] MEDS ORDERED: DEXTROSE 50% 50 ML SYRINGE IV PRN ×2 (15:30)
[2016-09-07] MEDS ORDERED: GLUCOSE GEL 15 GRAM TUBE BUCCAL PRN (15:30)
[2016-09-07] MEDS ORDERED: GLUCAGON 1 MG INJ IM PRN (15:30)
--- NOTE | 2016-09-07 16:49 | HP ---
Date/Time of Note Date/Time of Note DATE: 09/07/16 TIME: 16:39 Assessment/Plan VTE Prophylaxis VTE Prophylaxis Intervention: heparin Lines/Catheters IV Catheter Type (from Nrs): Saline Lock Assessment/Plan Chief Complaint/Hosp Course 70 yo male with h/o CAD, CKD III, hypertension, DMII who presents with vertigo, hypertension, gait imbalance, and tremor. Also reproting depression Overall I suspect the patient's presentation may be related to depression given his del rio-positive review of system with vague complaints, inabilitly to sleep etc. However, neurologic disease must be ruled out - MRI brain is pending - Neurology consult to assess for Parkinsons Hypertension: - Continue home Losartan 100, HCTZ, will add amlodipine - I don't believe any of his presenting compliants are related to acute hypertension Depression: - No report of SI - Would benefit from psychiatrist evaluation CKD III: - Stable, trend creatinine CAD: - Continue atorvastatin and plavix Needs PT/OT evaluation to assess ability to care for himself Discharge following above workup Problems: HPI/ROS Admit Date/Time Admit Date/Time Sep 07, 2016 at 11:17 Hx of Present Illness 70 yo male with h/o CAD, CKD III, hypertension, vertigo who presents with 2 days of reported episodic vertigo, headache, hypertension, gait instability Patient gives del rio positive review of systems. Seems he was in usual state of health until two days ago. Says he began feeling very anxious and that his "blood pressure was high". He denies any symptoms of elevated BP beyond anxiety. Says he has been unable to sleep for the past two days. Has episodes of vertigo which occur with movement of head and standing supine. Also complains of gait instability. Per chart review, seems this is a chronic symptom going back years. Patient also appeared sad, when asked if feels depressed he confirmed he does indeed feel depression and hopelessness. Says it is very difficult to be from his and children who live in [place]. Feels he can't live alone as he is unable to care for himself adequately. He denies suicidal ideation Denies any chest symptoms or SOB No focal weakness or loss of sensation PMH/Family/Social Past Medical History CKD III Hypertension CAD s/p stents Past Surgical History Past Surgical Hx: angioplasty Social History Smoking Status: Never smoker Exam/Review of Systems Vital Signs Vitals Vital Signs Date Time Temp Pulse Resp B/P Pulse Ox O2 Delivery O2 Flow Rate FiO2 09/07/16 15:08 97.9 66 18 166/81 97 Room Air Exam Exam Comfortable appearing, resting in NAD NEURO: Resting tremor of RUE to hand. No cogwheeling. Strenght 5/5 throughout. Sensation in tact throughout. Gait was antalgic and slow CV: RRR, flat neck veins Lungs clear b/l Abdomen soft nt nd Ext without edema Labs Result Diagram: 09/07/1694409/07/16944 Medications Medications Current Medications Atorvastatin Calcium (Lipitor) 20 mg QHS PO ; Start 09/07/16 at 21:00 Clopidogrel Bisulfate (plaVIX) 75 mg DAILY PO ; Start 09/08/16 at 09:00 Hydrochlorothiazide (Hydrochlorothiazide) 12.5 mg DAILY PO ; Start 09/08/16 at 09:00 Losartan Potassium (Cozaar) 100 mg DAILY PO ; Start 09/08/16 at 09:00 Tramadol HCl (Ultram) 50 mg BID PRN PO PAIN; Start 09/07/16 at 12:30 Diagnostic Test (Pha) (Accu-Chek) 1 ea 02 XX ; Start 09/08/16 at 02:00 Insulin Glargine (Lantus) 18 unit DAILY@08 SC ; Start 09/08/16 at 08:00 Miscellaneous Information 1 ea NOTE XX ; Start 09/07/16 at 15:30 Glucose (Glutose) 15 gm Q15M PRN PO DECREASED GLUCOSE; Start 09/07/16 at 15:30 Glucose (Glutose) 22.5 gm Q15M PRN PO DECREASED GLUCOSE; Start 09/07/16 at 15: 30 Dextrose (D50w Syringe) 25 ml Q15M PRN IV DECREASED GLUCOSE; Start 09/07/16 at 15:30 Dextrose (D50w Syringe) 50 ml Q15M PRN IV DECREASED GLUCOSE; Start 09/07/16 at 15:30 Glucagon (Glucagen) 1 mg Q15M PRN IM DECREASED GLUCOSE; Start 09/07/16 at 15:30 Glucose (Glutose) 15 gm Q15M PRN BUCCAL DECREASED GLUCOSE; Start 09/07/16 at 15 :30 KELY BAUTISTA MD Sep 07, 2016 16:49
--- NOTE | 2016-09-07 17:12 | RADRPT ---
PROCEDURE: MRI Brain without contrast. CLINICAL INDICATION: Vertigo. TECHNIQUE: An MRI of the brain was performed utilizing the following sequences: Sagittal and axial T1 weighted, axial T2 weighted, axial diffusion weighted with ADC mapping, axial FIESTA, coronal GR E, and axial FLAIR. COMPARISON: None. FINDINGS: No diffusion weighted abnormalities are seen to suggest the presence of acute ischemia or recent inf arct. No hypointense signal abnormalities are seen on the GRE images to suggest the presence of blo od degradation products. There is no evidence of intracranial hemorrhage, mass effect, or midline s hift. No extra-axial fluid collections are seen. The ventricles and sulci are mildly enlarged indica tive of volume loss. There are mild to moderate scattered foci of T2 FLAIR hyperintensity in the periventricular, deep, a nd subcortical white matter, which are nonspecific in etiology but likely reflect chronic small vess el ischemic changes. No abnormal intracranial vascular flow void is noted. The visualized paranasal sinuses demonstrate 2 .5 cm probable mucous retention cyst in the right maxillary sinus, otherwise mild scattered mucosal thickening with partial opacification of posterior left ethmoid air cells. A vascular branch likely from the left superior cerebellar artery is in the vicinity of the left sev enth and eighth nerve complex. Otherwise bilateral seventh and eighth nerve complexes are unremarkab le. IMPRESSION: 1. No acute intracranial hemorrhage, infarction or mass. 2. Mild to moderate chronic small vessel ischemic changes. 3. Mild generalized cerebral volume loss. 4. A vascular branch likely from the left superior cerebellar artery is in the vicinity of the left seventh and eighth nerve complex. Otherwise bilateral seventh and eighth nerve complexes are unrema rkable. RPTAT: HH .Leonides Duarte MD, MD Date Time Electronically viewed and signed by .Leonides Duarte MD, MD on 09/07/2016 17:12 .N/
[2016-09-07] MEDS ORDERED: ZOLPIDEM 5 MG TAB PO PRN (17:30)
[2016-09-07 17:54] VITALS: PULSE 69
[2016-09-07] MEDS: INSULIN ASPART [NOVOLOG] 3 ML PEN SC SCH ×2 (17:55→21:17)
[2016-09-07 17:58] VITALS: BP 189/91; PULSE 68; RESP 18
[2016-09-07] MEDS: AMLODIPINE 5 MG TAB PO SCH (18:06)
[2016-09-07 20:05] VITALS: PULSE 70
[2016-09-07 20:11] VITALS: BP 201/94; RESP 16
[2016-09-07] MEDS ORDERED: INSULIN GLARGINE HUM REC ANLOG 15 UNIT SQ SCH (21:00)
[2016-09-07] MEDS ORDERED: ATORVASTATIN 20 MG TAB PO SCH (21:00)
[2016-09-07] MEDS ORDERED: [UNRECOGNIZED DRUG - OTHER] SQ SCH (21:00)
[2016-09-07] MEDS ORDERED: hydrALAzine 20 MG INJ IV PRN ×2 (22:00)
[2016-09-07] MEDS ORDERED: hydrALAzine 20 MG INJ IV SCH (22:00)
[2016-09-07 22:19] LABS: TROPONIN-I 0.042 ng/ml (0.00-0.12)
[2016-09-07 22:20] LABS: CK-MB 1.48 ng/ml (0.0-2.4)
[2016-09-08] VITALS (12 sets, daily range): BP systolic 140–175; BP diastolic 74–92; PULSE 78–99; RESP 16–18
[2016-09-08] MEDS ORDERED: ACCU-CHEK XX SCH (02:00)
[2016-09-08] MEDS ORDERED: INSULIN GLARGINE [LANtus] 3 ML PEN SC SCH (08:00)
[2016-09-08] MEDS: INSULIN ASPART [NOVOLOG] 3 ML PEN SC SCH ×3 (08:01→17:55)
[2016-09-08] MEDS: AMLODIPINE 5 MG TAB PO SCH (08:11)
[2016-09-08 08:12] LABS: BASOPHIL # 0.1 10^3/ul (0.0-0.1); BASOPHILS % 0.8 % (0.0-2.0); EOSINOPHILS # 0.2 10^3/ul (0.0-0.5); EOSINOPHILS % 1.8 % (0.0-7.0); HEMATOCRIT 44.8 % (42.0-52.0); HEMOGLOBIN 15.3 g/dl (14.0-18.0); LYMPHOCYTES # 0.7 10^3/ul (0.8-2.9); LYMPHOCYTES % 7.4 % (15.0-51.0); MEAN CORPUSCULAR HEMOGLOBIN 28.3 pg (29.0-33.0); MEAN CORPUSCULAR HGB CONC 34.2 g/dl (32.0-37.0); MEAN PLATELET VOLUME 10.5 fl (7.4-10.4); MONOCYTES % 10.1 % (0.0-11.0); NEUTROPHIL # 7.9 10^3/ul (1.6-7.5); NEUTROPHILS % 79.5 % (39.0-77.0); PLATELET COUNT 231 10^3/UL (140-415); RED CELL DISTRIBUTION WIDTH 13.3 % (11.5-14.5); WHITE BLOOD COUNT 9.9 10^3/ul (4.8-10.8)
[2016-09-08 08:32] LABS: CALCIUM 9.5 mg/dl (8.4-10.2); CREATININE 2.5 mg/dl (0.61-1.24); POTASSIUM 3.2 mmol/L (3.5-5.1)
[2016-09-08] MEDS ORDERED: HYDROCHLOROTHIAZIDE 12.5 MG CAP PO SCH (09:00)
[2016-09-08] MEDS ORDERED: HYDROCHLOROTHIAZIDE 25 MG TAB PO SCH (09:00)
[2016-09-08] MEDS ORDERED: CLOPIDOGREL 75 MG TAB PO SCH (09:00)
[2016-09-08] MEDS ORDERED: LOSARTAN 50 MG TAB PO SCH (09:00)
[2016-09-08] MEDS ORDERED: POTASSIUM CHLORIDE (SR) 20 MEQ TAB PO STA (09:14)
[2016-09-08 09:40] LABS: THYROID STIMULATING HORMONE 3.27 MIU/L (0.465-4.680)
--- NOTE | 2016-09-08 09:47 | CONS ---
Date/Time of Note Date/Time of Note DATE: 09/08/16 TIME: 09:40 Assessment/Plan Assessment/Plan Chief Complaint/Hosp Course 70 yo male with CAD, HTN, depression p/w hypertension, vertigo, complaint of tremors over 6 months. I suspect intention tremor and he may benefit from addition of beta abraham, will recommend starting low dose Propranolol 10 mg daily if no contraindication with his current medical issues and no interactions with his other current medications. weighted utensils for eating, weighted pen, occupational therapy consultation he would also benefit from psychiatry evaluation, propranolol may held reduce anxiety however may worsen depression symptoms Problems: Consultation Date/Type/Reason Admit Date/Time Sep 07, 2016 at 11:17 Date of Consultation: Sep 08, 2016 Type of Consultation: Neurology Reason for Consultation tremors Hx of Present Illness 70 year old male with hx of CAD, CKD III, HTN, vertigo p/w episodic vertigo, LOJA , HTN, gait issues. He states he has had increasing tremors over 6 months, mostly present when performing tasks. Per HPI he reported hx of depression, having issues with ADL's. MRI Brain w/o contrast shows no acute process, chronic atrophy, microvascular changes. 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, DTR's symmetric (Tremor present only on action , no resting tremor, no cogwheeling rigidity, FTN tremor high frequency), nl mental status, nl speech, nl strength Results Result Diagram: 09/08/16 0741 09/08/16 0741 Results 24 hrs Laboratory Tests Test 09/07/16 09:45 09/07/16 12:45 09/07/16 17:51 09/07/16 21:08 White Blood Count 6.5 # Red Blood Count 5.00 Hemoglobin 14.5 Hematocrit 41.9 L Mean Corpuscular Volume 83.8 Mean Corpuscular Hemoglobin 29.0 Mean Corpuscular Hemoglobin Concent 34.6 Red Cell Distribution Width 12.9 Platelet Count 203 # Mean Platelet Volume 10.2 Neutrophils % 62.3 Lymphocytes % 16.3 Monocytes % 11.8 H Eosinophils % 8.2 H Basophils % 1.2 Nucleated Red Blood Cells % 0.0 Neutrophils # 4.0 Lymphocytes # 1.1 Monocytes # 0.8 Eosinophils # 0.5 Basophils # 0.1 Nucleated Red Blood Cells # 0.0 Prothrombin Time 12.2 Prothrombin Time Ratio 1.0 INR International Normalized Ratio 0.91 Activated Partial Thromboplast Time 25.2 Sodium Level 141 Potassium Level 3.9 Chloride Level 97 Carbon Dioxide Level 28 Anion Gap 20 H Blood Urea Nitrogen 40 H Creatinine 2.34 H Glucose Level 154 Calcium Level 9.6 Total Bilirubin 0.6 Direct Bilirubin 0.00 Indirect Bilirubin 0.6 Aspartate Amino Transf (AST/SGOT) 34 Alanine Aminotransferase (ALT/SGPT) 44 Alkaline Phosphatase 111 Troponin I 0.045 0.033 Total Protein 7.1 Albumin 4.0 Globulin 3.10 Albumin/Globulin Ratio 1.29 Creatine Kinase 105 Creatine Kinase Index 1.5 Creatinine Kinase MB (Mass) 1.53 Bedside Glucose 113 183 Test 09/07/16 21:28 09/08/16 02:04 09/08/16 07:41 09/08/16 07:51 Creatine Kinase 108 Creatine Kinase Index 1.4 Creatinine Kinase MB (Mass) 1.48 Troponin I 0.042 Bedside Glucose 158 171 White Blood Count 9.9 # Red Blood Count 5.40 Hemoglobin 15.3 Hematocrit 44.8 Mean Corpuscular Volume 83.0 Mean Corpuscular Hemoglobin 28.3 L Mean Corpuscular Hemoglobin Concent 34.2 Red Cell Distribution Width 13.3 Platelet Count 231 Mean Platelet Volume 10.5 H Neutrophils % 79.5 H Lymphocytes % 7.4 L Monocytes % 10.1 Eosinophils % 1.8 Basophils % 0.8 Nucleated Red Blood Cells % 0.0 Neutrophils # 7.9 H Lymphocytes # 0.7 L Monocytes # 1.0 H Eosinophils # 0.2 Basophils # 0.1 Nucleated Red Blood Cells # 0.0 Sodium Level 140 Potassium Level 3.2 L Chloride Level 99 Carbon Dioxide Level 24 Anion Gap 20 H Blood Urea Nitrogen 43 H Creatinine 2.50 H Glucose Level 188 Calcium Level 9.5 Thyroid Stimulating Hormone (TSH) Pending Medications Medications Current Medications Atorvastatin Calcium (Lipitor) 20 mg QHS PO Last administered on 09/07/16 21: 08; Admin Dose 20 MG; Start 09/07/16 at 21:00 Clopidogrel Bisulfate (plaVIX) 75 mg DAILY PO Last administered on 09/08/16 08 :11; Admin Dose 75 MG; Start 09/08/16 at 09:00 Losartan Potassium (Cozaar) 100 mg DAILY PO Last administered on 09/08/16 08: 12; Admin Dose 100 MG; Start 09/08/16 at 09:00 Tramadol HCl (Ultram) 50 mg BID PRN PO PAIN Last administered on 09/08/16 07: 58; Admin Dose 50 MG; Start 09/07/16 at 12:30 Diagnostic Test (Pha) (Accu-Chek) 1 ea 02 XX Last administered on 09/08/16 02: 06; Admin Dose 1 EA; Start 09/08/16 at 02:00 Insulin Glargine (Lantus) 18 unit DAILY@08 SC ; Start 09/08/16 at 08:00 Miscellaneous Information 1 ea NOTE XX ; Start 09/07/16 at 15:30 Glucose (Glutose) 15 gm Q15M PRN PO DECREASED GLUCOSE; Start 09/07/16 at 15:30 Glucose (Glutose) 22.5 gm Q15M PRN PO DECREASED GLUCOSE; Start 09/07/16 at 15: 30 Dextrose (D50w Syringe) 25 ml Q15M PRN IV DECREASED GLUCOSE; Start 09/07/16 at 15:30 Dextrose (D50w Syringe) 50 ml Q15M PRN IV DECREASED GLUCOSE; Start 09/07/16 at 15:30 Glucagon (Glucagen) 1 mg Q15M PRN IM DECREASED GLUCOSE; Start 09/07/16 at 15:30 Glucose (Glutose) 15 gm Q15M PRN BUCCAL DECREASED GLUCOSE; Start 09/07/16 at 15 :30 Amlodipine Besylate (Norvasc) 5 mg DAILY PO Last administered on 09/08/16 08: 11; Admin Dose 5 MG; Start 09/07/16 at 18:00 Hydrochlorothiazide (Hydrochlorothiazide) 25 mg DAILY PO ; Start 09/08/16 at 09: 00 CECY MANUEL MD Sep 08, 2016 09:47
--- NOTE | 2016-09-08 13:35 | PSY ---
Date/Time of Note Date/Time of Note DATE: 09/08/16 TIME: 13:15 Psychiatric Subjective Eval Consent Pt consented to telemedicine: Yes Subjective Evaluation Chief Complaint: dizziness since yesterday Reason for consult: Depression History of present illness This is a 70 year old male 70 yo male with h/o CAD, CKD III, hypertension, vertigo who presents with 2 days of reported episodic vertigo, headache, hypertension, gait instability Patient gives [place] positive review of systems. Seems he was in usual state of health until two days ago. Says he began feeling very anxious and that his "blood pressure was high". He denies any symptoms of elevated BP beyond anxiety. Says he has been unable to sleep for the past two days. Has episodes of vertigo which occur with movement of head and standing supine. Also complains of gait instability. Per chart review, seems this is a chronic symptom going back years. Patient also appeared sad, when asked if feels depressed he confirmed he does indeed feel depression and hopelessness. Says it is very difficult to be from his and children who live in [place]. Feels he can't live alone as he is unable to care for himself adequately. He denies suicidal ideation Denies any chest symptoms or SOB No focal weakness or loss of sensation The treating physician requested a psychiatric consult as the patient expressed feelings of helplessness and hopelessness for the past 2 years. The physician also noted that the patient's physical complaints may be more related to him feeling depress and isolated. When I interviewed the patient a biligual nurse was present to assist in the translation. The patient consented to have the nurse assist, as well as consented for the telepsychiatric evaluation. He shared that he had been feeling depressed over the past 2 years. He is currently living alone. He stated that he has difficulty falling asleep, is feeling more anxious, and less motivated, and engaged in activities. He denied hallucinations or delusions. He denied suicidal or homicidal ideation, intent or plan. He was receptive to take an antidepressant as well as receive supportive therapy. Past psychiatric history He denied any prior psychiatric history. Family History He denies any family history Medical history Problems Medical Problems: (1) Chest pain Status: Acute (2) Dizziness Status: Acute (3) Hypertension Status: Acute (4) Ischemic heart disease Status: Acute Allergies: Coded Allergies: Penicillins (Verified Allergy, Mild, 09/07/16) Substance Abuse Substance use: No known substance abuse Substance abuse history: No Prior substance abuse treatmen: No Social History Marital status: () DPA/Conservatorship: No Occupation/Long-Term: Retired Psychiatric Objective Eval Review of Systems: Review of Systems: Applicable Constitutional: Normal Eyes: Normal ENT: Normal Neck: Normal Respiratory: Normal Chest/Breast: Normal Cardiovascular: Normal GI: Normal Genitourinary: Normal Skin: Normal Lymphatic: Normal Musculoskeletal: Normal Neurological: Normal Physical Examination: Physical Examination: Not Applicable Sleep: Initial Appetite: Adequate Energy: Adequate Interest: Adequate Mental Status Examination: Appearance: Groomed Eye Contact: Good Psychomotor Activity: Normal Behavior: Cooperative Speech: Clear AFFECT: Appropriate Mood: Appropriate/Full Though Process: Linear Thought Content: Normal Suicidal: No Homicidal: No On 72 hour hold: No Orientation: x4 Cognition: Alert Insight: Intact Judgement: Intact Attention Span: Intact Laboratory Results Laboratory Tests Test 09/07/16 09:45 09/07/16 12:45 09/07/16 17:51 09/07/16 21:08 White Blood Count 6.510^3/ul Red Blood Count 5.0010^6/ul Hemoglobin 14.5g/dl Hematocrit 41.9% Mean Corpuscular Volume 83.8fl Mean Corpuscular Hemoglobin 29.0pg Mean Corpuscular Hemoglobin Concent 34.6g/dl Red Cell Distribution Width 12.9% Platelet Count 20434^3/UL Mean Platelet Volume 10.2fl Neutrophils % 62.3% Lymphocytes % 16.3% Monocytes % 11.8% Eosinophils % 8.2% Basophils % 1.2% Nucleated Red Blood Cells % 0.0/100WBC Neutrophils # 4.010^3/ul Lymphocytes # 1.110^3/ul Monocytes # 0.810^3/ul Eosinophils # 0.510^3/ul Basophils # 0.110^3/ul Nucleated Red Blood Cells # 0.010^3/ul Prothrombin Time 12.2Sec Prothrombin Time Ratio 1.0 INR International Normalized Ratio 0.91 Activated Partial Thromboplast Time 25.2Sec Sodium Level 141mmol/L Potassium Level 3.9mmol/L Chloride Level 97mmol/L Carbon Dioxide Level 28mmol/L Anion Gap 20 Blood Urea Nitrogen 40mg/dl Creatinine 2.34mg/dl Glucose Level 154mg/dl Calcium Level 9.6mg/dl Total Bilirubin 0.6mg/dl Direct Bilirubin 0.00mg/dl Indirect Bilirubin 0.6mg/dl Aspartate Amino Transf (AST/SGOT) 34IU/L Alanine Aminotransferase (ALT/SGPT) 44IU/L Alkaline Phosphatase 111IU/L Troponin I 0.045ng/ml 0.033ng/ml Total Protein 7.1g/dl Albumin 4.0g/dl Globulin 3.10g/dl Albumin/Globulin Ratio 1.29 Creatine Kinase 105IU/L Creatine Kinase Index 1.5 Creatinine Kinase MB (Mass) 1.53ng/ml Bedside Glucose 113mg/dL 183mg/dL Test 09/07/16 21:28 09/08/16 02:04 09/08/16 07:41 09/08/16 07:51 Creatine Kinase 108IU/L Creatine Kinase Index 1.4 Creatinine Kinase MB (Mass) 1.48ng/ml Troponin I 0.042ng/ml Bedside Glucose 158mg/dL 171mg/dL White Blood Count 9.910^3/ul Red Blood Count 5.4010^6/ul Hemoglobin 15.3g/dl Hematocrit 44.8% Mean Corpuscular Volume 83.0fl Mean Corpuscular Hemoglobin 28.3pg Mean Corpuscular Hemoglobin Concent 34.2g/dl Red Cell Distribution Width 13.3% Platelet Count 48896^3/UL Mean Platelet Volume 10.5fl Neutrophils % 79.5% Lymphocytes % 7.4% Monocytes % 10.1% Eosinophils % 1.8% Basophils % 0.8% Nucleated Red Blood Cells % 0.0/100WBC Neutrophils # 7.910^3/ul Lymphocytes # 0.710^3/ul Monocytes # 1.010^3/ul Eosinophils # 0.210^3/ul Basophils # 0.110^3/ul Nucleated Red Blood Cells # 0.010^3/ul Sodium Level 140mmol/L Potassium Level 3.2mmol/L Chloride Level 99mmol/L Carbon Dioxide Level 24mmol/L Anion Gap 20 Blood Urea Nitrogen 43mg/dl Creatinine 2.50mg/dl Glucose Level 188mg/dl Calcium Level 9.5mg/dl Thyroid Stimulating Hormone (TSH) 3.270MIU/L Test 09/08/16 09:39 09/08/16 12:20 Bedside Glucose 280mg/dL 248mg/dL Assessment and Plan Assessment/Diagnosis [place] I: F39 Mood disorder NOS [place] II: Deferred [place] III: CAD, CKD III, hypertension [place] IV: Socially isolate. [place] V: 60 Recommendation/Plan Medication Management The patient reports having a history of problems with sleep onset. Remeron 15mg po hs may assist with sleep as well as address symptoms of depression and anxiety. Psychotherapy The patient would benefit form CBT therapy. Further, he should be referred to a senior center where he could increase his socialization. A social service consult should be done to referr the patient for therapy, as well as referred to a variety of resources which may increase his socialization. It is not clear how active his family is engaged. If family support is a problem, he may benefit from family therapy. Follow-up/Disposition The patient should be referred to a psychiatrist and a therapist. 5150 Recommendation: He does not meet 5150 criteria. RAMAKRISHNA TERESA MD Sep 08, 2016 13:27
--- NOTE | 2016-09-08 15:47 | DS ---
Date/Time of Note Date/Time of Note DATE: 09/08/16 TIME: 15:42 Discharge Summary Admission/Discharge Info Admit Date/Time Sep 07, 2016 at 11:17 Discharge Date/Time Consults Neurology Psychiatry Procedures None Hx of Present Illness 70 yo male with h/o CAD, CKD III, hypertension, vertigo who presents with 2 days of reported episodic vertigo, headache, hypertension, gait instability Patient gives [place] positive review of systems. Seems he was in usual state of health until two days ago. Says he began feeling very anxious and that his "blood pressure was high". He denies any symptoms of elevated BP beyond anxiety. Says he has been unable to sleep for the past two days. Has episodes of vertigo which occur with movement of head and standing supine. Also complains of gait instability. Per chart review, seems this is a chronic symptom going back years. Patient also appeared sad, when asked if feels depressed he confirmed he does indeed feel depression and hopelessness. Says it is very difficult to be from his and children who live in [place]. Feels he can't live alone as he is unable to care for himself adequately. He denies suicidal ideation Denies any chest symptoms or SOB No focal weakness or loss of sensation Hospital Course 70 yo male with CAD, HTN, depression p/w hypertension, vertigo, complaint of tremors over 6 months. Patient underwent a brain MRI which was unremarkalbe. Evaluated by neurology who felt he had an intention tremor. Seen by psychiatry who recommended CBT as an outpatient. I suspect patient's presentation is from chronic mood symptoms of anxiety and depression. Will recommend he continue his outpatient medication regimen with the exception of holding colchicine given his impaired renal function. Home Meds Reported Medications Liraglutide (Victoza 3-Donnie) 0.6 Mg/0.1 Ml Pen.injctr, 0.6 MG SQ QAM, SYR 09/07/16 Insulin Glargine,Hum.rec.anlog (Chhaya Boswell) 300 Unit/1 Ml Insuln.pen, 15 UNIT SQ QHS 09/07/16 Atorvastatin Calcium* (Atorvastatin Calcium*) 20 Mg Tablet, 20 MG PO QHS, #30 TAB 09/07/16 Tramadol Hcl* (Ultram*) 50 Mg Tablet, 50 MG PO BID Y for PAIN, TAB 7/25/17 Colchicine* (Colcrys*) 0.6 Mg Tablet, 0.6 MG PO DAILY, TAB 09/07/16 Hydrochlorothiazide* (Hydrochlorothiazide*) 12.5 Mg Tablet, 12.5 MG PO DAILY, # 30 TAB 09/07/16 Losartan Potassium* (Losartan Potassium*) 100 Mg Tablet, 100 MG PO DAILY, TAB 02/02/16 Clopidogrel Bisulfate (Clopidogrel) 75 Mg Tablet, 75 MG PO DAILY, TAB 01/26/14 Discontinued Reported Medications Acarbose* (Acarbose*) 25 Mg Tablet, 25 MG PO TID for 30 Days, #30 TAB 02/02/16 Insulin Glargine* (Lantus*) 100 Unit/Ml Soln, 1 UNIT SC BID, #1 VIAL 02/02/16 Amlodipine Besylate* (Amlodipine Besylate*) 10 Mg Tablet, 10 MG PO DAILY, #30 TAB 02/02/16 Simvastatin (Simvastatin) 40 Mg Tablet, 40 MG PO QHS, #30 TAB 02/02/16 Carvedilol* (Carvedilol*) 12.5 Mg Tablet, 12.5 MG PO BID, #60 TAB 02/02/16 Insulin Glargine* (Lantus*) 100 Unit/Ml Soln, 0 SC BID Y for sliding scale , EA 07/12/14 Glipizide XL* (Glipizide XL*) 5 Mg Tabsr, 10 MG PO DAILY, TAB 01/26/14 Discontinued Scripts Nitroglycerin* (Nitrostat*) 25 Tab Subl, 0.4 MG SL .Q5M UP TO 3 DOSES Y for CHEST PAIN, #30 Prov:JAD SHIN 07/14/14 Hydralazine Hcl* (Hydralazine Hcl*) 50 Mg Tab, 100 MG PO Q8 for 30 Days, TAB Prov:JAD SHIN 07/14/14 Isosorbide Mononitrate* (Isosorbide Mononitrate*) 30 Mg Tabsr, 30 MG PO DAILY for 30 Days Prov:JAD SHIN 07/14/14 Primary Care Provider Guillermo Torres Time spent on discharge: > 30 minutes Pending Labs Laboratory Tests Test 09/07/16 17:51 09/07/16 21:08 09/07/16 21:28 09/08/16 02:04 Bedside Glucose 113mg/dL (70-220) 183mg/dL (70-220) 158mg/dL (70-220) Creatine Kinase 108IU/L (23-200) Creatine Kinase Index 1.4 Creatinine Kinase MB (Mass) 1.48ng/ml (0.0-2.4) Troponin I 0.042ng/ml (0.00-0.12) Test 09/08/16 07:41 09/08/16 07:51 09/08/16 09:39 09/08/16 12:20 White Blood Count 9.910^3/ul (4.8-10.8) Red Blood Count 5.4010^6/ul (4.70-6.10) Hemoglobin 15.3g/dl (14.0-18.0) Hematocrit 44.8% (42.0-52.0) Mean Corpuscular Volume 83.0fl (82.0-101.0) Mean Corpuscular Hemoglobin 28.3pg (29.0-33.0) Mean Corpuscular Hemoglobin Concent 34.2g/dl (32.0-37.0) Red Cell Distribution Width 13.3% (11.5-14.5) Platelet Count 90671^3/UL (140-415) Mean Platelet Volume 10.5fl (7.4-10.4) Neutrophils % 79.5% (39.0-77.0) Lymphocytes % 7.4% (15.0-51.0) Monocytes % 10.1% (0.0-11.0) Eosinophils % 1.8% (0.0-7.0) Basophils % 0.8% (0.0-2.0) Nucleated Red Blood Cells % 0.0/100WBC (0.0-0.0) Neutrophils # 7.910^3/ul (1.6-7.5) Lymphocytes # 0.710^3/ul (0.8-2.9) Monocytes # 1.010^3/ul (0.3-0.9) Eosinophils # 0.210^3/ul (0.0-0.5) Basophils # 0.110^3/ul (0.0-0.1) Nucleated Red Blood Cells # 0.010^3/ul (0.0-0.0) Sodium Level 140mmol/L (135-144) Potassium Level 3.2mmol/L (3.5-5.1) Chloride Level 99mmol/L (97-110) Carbon Dioxide Level 24mmol/L (21-31) Anion Gap 20 (8-16) Blood Urea Nitrogen 43mg/dl (7-20) Creatinine 2.50mg/dl (0.61-1.24) Glucose Level 188mg/dl (70-220) Calcium Level 9.5mg/dl (8.4-10.2) Thyroid Stimulating Hormone (TSH) 3.270MIU/L (0.465-4.680) Bedside Glucose 171mg/dL (70-220) 280mg/dL (70-220) 248mg/dL (70-220) KELY BAUTISTA MD Sep 08, 2016 15:47
--- NOTE | 2016-09-08 15:48 | PDOCDIS ---
Discharge Instructions DIAGNOSIS Discharge Diagnosis Anxiety, depression, hypertension CONDITION Patient Condition: Good HOME CARE INSTRUCTIONS: Diet Instructions: Reduced SodiumSpecial Diet: Carbs controlled ACTIVITY: Activity Restrictions: No Restrictions FOLLOW UP/APPOINTMENTS Follow-up Plan Follow up as soon as you can with your primary care doctor and your systems developer You should STOP taking colchicine for the time being until you discuss your medications with your doctor Please seek care from a psychologist in the community to help with feelings of depression and anxiety KELY BAUTISTA MD Sep 08, 2016 15:48
== END 2016-09-08 18:55 | disposition home or self-care (01) ==
LOC: E/R 09:00 → TEL 11:17
PROVIDERS: ADMIT Internal Medicine; ATTEND Internal Medicine
DX: R42 Dizziness and giddiness (principal); I12.9 Hypertensive chronic kidney disease with stage 1 through stage 4 chronic kidney disease, or unspecified chronic kidney disease; N18.3 Chronic kidney disease, stage 3 (moderate); I25.10 Atherosclerotic heart disease of native coronary artery without angina pectoris; F32.9 Major depressive disorder, single episode, unspecified; Z88.0 Allergy status to penicillin
CPT/HCPCS: 36415; 70551; 71010; 80048; 80053; 82550; 82553; 82962; 84443; 84484; 85025; 85610; 85730; 93005; 96374; 97163; 99285; G0378; J0360; J1815

== ENCOUNTER 2017-02-18 19:40 | Inpatient (IN) | END 2017-02-24 16:50 | disposition home or self-care (01) | DRG 202 ==

== ENCOUNTER 2017-02-26 05:22 | Inpatient (IN) | END 2017-03-08 16:22 | disposition home or self-care (01) | DRG 291 ==

== ENCOUNTER 2017-03-16 13:42 | Inpatient (IN) | END 2017-03-22 17:30 | disposition home or self-care (01) | DRG 194 ==

== ENCOUNTER 2018-03-04 09:32 | Inpatient (IN) | payer OTHER, MEDICAID ==
[~2018-03-04] VITALS: Ht 167.6 cm; Wt 78.8 kg
[~2018-03-04 09:32] MED LIST changes: -ACAR25TA7 PO; +ASPI-831 PO; +ATOR20TA38 PO; +FEBU40TA PO; -GLU5XL PO; +ISOS20TA19 PO; -ISOS30TA5 PO; +LEVO500T48 PO; +LIRA0.6P SQ; -LOSA100T7 PO; -NIT4 SL; +NOVO3I SC; +OMEG-157 PO; +OMEP20CA16 PO; -SIMV40TA7 PO; +TOPI200C5 PO; +TRAM50TA PO
[2018-03-04 09:34] VITALS: Ht 167.6 cm; Wt 78.8 kg
--- NOTE | 2018-03-04 10:22 | ERD ---
ER Documentation Chief Complaint Chief Complaint pt bib friend with c/o chest pain and shortness of breath since today HPI 72-year-old male history of diabetes, hypertension, coronary artery disease status post PCI, cardiomyopathy with EF of 45%, systolic congestive heart failure, chronic kidney disease and gout presents to the ED complaining of a one-week history of worsening shortness of breath, orthopnea and exertional dysp alisha. No hemoptysis. Denies chest pain or palpitations. Increased lower extremity swelling but no pain. Denies abdominal pain, nausea, vomiting, diarrhea or constipation. No fevers or chills. ROS All systems reviewed and are negative except as per history of present illness. Medications Home Meds Active Scripts Murphy-3/Dha/Epa/Fish Oil (FISH OIL EC 1,000 MG SOFTGEL) 1 Each Capsule., 2000 MG PO BID, #30 CAP Prov:JAD SHIN 03/03/17 Clopidogrel Bisulfate (Clopidogrel) 75 Mg Tablet, 75 MG PO DAILY, #30 TAB Prov:JAD SHIN 03/03/17 Reported Medications Hydralazine Hcl* (Hydralazine Hcl*) 50 Mg Tab, 50 MG PO BID, #120 TAB 03/04/18 Aspirin* (Aspirin* EC) 81 Mg Tablet., 81 MG PO DAILY, TAB 03/04/18 Carvedilol* (Coreg*) 3.125 Mg Tablet, 3.125 MG PO BID, #60 TAB 03/04/18 Liraglutide (Victoza 3-Donnie) 0.6 Mg/0.1 Ml Pen.injctr, 1.8 MG SQ QAM, SYR 03/04/18 Insulin Glargine,Hum.rec.anlog (Toukeyur Solostar) 300 Unit/1 Ml Insuln.pen, 40 UNIT SQ QPM, EA 03/04/18 Atorvastatin* (Atorvastatin*) 40 Mg Tablet, 40 MG PO QHS, #30 TAB 03/04/18 Omeprazole* (Omeprazole*) 20 Mg Capsule., 20 MG PO DAILY, #30 CAP 02/18/17 Discontinued Reported Medications Topiramate (Topiramate ER) 200 Mg Cap.spr.24, 200 MG PO 02/26/17 Febuxostat* (Uloric*) 40 Mg Tablet, 40 MG PO DAILY, TAB 02/18/17 Atorvastatin Calcium* (Atorvastatin Calcium*) 20 Mg Tablet, 20 MG PO QHS, #30 TAB 09/07/16 Tramadol Hcl* (Ultram*) 50 Mg Tablet, 50 MG PO BID PRN for PAIN, TAB 09/07/16 Discontinued Scripts Levofloxacin* (Levaquin*) 500 Mg Tablet, 500 MG PO Q48H, #5 TAB Renally dosed. Prov:DALLIN ADAMS MUSIC WORKER 03/22/17 Isosorbide Dinitrate* (Isosorbide Dinitrate*) 20 Mg Tablet, 20 MG PO TID, #90 TAB Prov:JAD SHIN 03/19/17 Liraglutide (Victoza 2-Donnie) 0.6 Mg/0.1 Ml Pen.injctr, 1.2 MG SQ DAILY for 30 Days, SYR Prov:DALLIN ADAMS NP 03/08/17 Insulin Aspart* (Novolog Insulin Pen*) 100 Unit/Ml Soln, 10 UNIT SC WITH MEALS f or 30 Days Prov:JAD SHIN 03/06/17 Insulin Glargine* (Lantus*) 100 Unit/Ml Soln, 30 UNIT SC DAILY@08 for 30 Days Prov:JAD SHIN 03/06/17 Hydralazine Hcl* (Apresoline*) 50 Mg Tab, 50 MG PO Q8, #90 TAB Prov:JAD SHIN 03/03/17 Carvedilol* (Carvedilol*) 12.5 Mg Tablet, 12.5 MG PO BID, #60 TAB Prov:JAD SHIN 03/03/17 Aspirin (Aspirin) 81 Mg Chew, 81 MG PO DAILY, #30 TAB Prov:JAD SHIN 03/03/17 Amlodipine Besylate* (Amlodipine Besylate*) 10 Mg Tablet, 10 MG PO DAILY, #30 TAB Prov:JAD SHIN 03/03/17 Allergies Allergies: Coded Allergies: Penicillins (Verified Allergy, Mild, 03/04/18) PMhx/Soc Reviewed in chart. As per HPI. History of Surgery: Yes (prostate) Anesthesia Reaction: No Hx Neurological Disorder: No Hx Respiratory Disorders: No Hx Cardiac Disorders: Yes (HTN, CAD, CHF, angio w/stents) Hx Psychiatric Problems: No Hx Miscellaneous Medical Probl: No Hx Alcohol Use: Yes (22 years ago quit) Hx Substance Use: No Hx Tobacco Use: No FmHx No stroke or cancer Physical Exam Vitals Vital Signs Date Temp Pulse Resp B/P (MAP) Pulse Ox O2 O2 Flow FiO2 Time Delivery Rate 03/04/18 70 20 177/103 99 Nasal 2.0 14:03 (127) Cannula 03/04/18 73 21 186/105 100 Nasal 2.0 13:36 (132) Cannula 03/04/18 71 28 177/107 99 Nasal 2.0 12:51 (130) Cannula 03/04/18 69 22 191/116 96 Room Air 10:24 (141) 03/04/18 Nasal 2 10:05 Cannula 03/04/18 97.7 78 30 213/106 89 09:34 (141) Physical Exam Const: No acute distress Head: Atraumatic Eyes: Normal Conjunctiva ENT: Normal External Ears, Nose and Mouth. Neck: Full range of motion. No meningismus. Resp: Clear to auscultation bilaterally Cardio: Regular rate and rhythm, no murmurs Abd: Soft, non tender, non distended. Normal bowel sounds Skin: No petechiae or rashes Back: No midline or flank tenderness Ext: No cyanosis, or edema Neur: Awake and alert Psych: Normal Mood and Affect Result Diagram: 03/08/1852303/08/18523 Results 24 hrs Laboratory Tests Test 03/04/18 09:56 White Blood Count 8.6 10^3/ul Red Blood Count 4.96 10^6/ul Hemoglobin 14.1 g/dl Hematocrit 41.9 % Mean Corpuscular Volume 84.5 fl Mean Corpuscular Hemoglobin 28.4 pg Mean Corpuscular Hemoglobin Concent 33.7 g/dl Red Cell Distribution Width 12.9 % Platelet Count 295 10^3/UL Mean Platelet Volume 11.1 fl Immature Granulocytes % 0.200 % Neutrophils % 76.1 % Lymphocytes % 9.4 % Monocytes % 9.2 % Eosinophils % 4.3 % Basophils % 0.8 % Nucleated Red Blood Cells % 0.0 /100WBC Immature Granulocytes # 0.020 10^3/ul Neutrophils # 6.5 10^3/ul Lymphocytes # 0.8 10^3/ul Monocytes # 0.8 10^3/ul Eosinophils # 0.4 10^3/ul Basophils # 0.1 10^3/ul Nucleated Red Blood Cells # 0.0 10^3/ul Prothrombin Time 11.9 Sec Prothrombin Time Ratio 0.9 INR International Normalized Ratio 0.87 Activated Partial Thromboplast Time 29.6 Sec Sodium Level 136 mmol/L Potassium Level 4.0 mmol/L Chloride Level 96 mmol/L Carbon Dioxide Level 28 mmol/L Anion Gap 12 Blood Urea Nitrogen 32 mg/dl Creatinine 2.32 mg/dl Est Glomerular Filtrat Rate mL/min mL/min Glucose Level 316 mg/dl Calcium Level 9.5 mg/dl Total Bilirubin 0.6 mg/dl Direct Bilirubin 0.00 mg/dl Indirect Bilirubin 0.6 mg/dl Aspartate Amino Transf (AST/SGOT) 24 IU/L Alanine Aminotransferase (ALT/SGPT) 21 IU/L Alkaline Phosphatase 133 IU/L Troponin I 0.051 ng/ml B-Type Natriuretic Peptide 61028 PG/ML Total Protein 7.3 g/dl Albumin 4.1 g/dl Globulin 3.20 g/dl Albumin/Globulin Ratio 1.28 Current Medications Medications Dose Sig/Monty Start Time Status Last (Trade) Ordered Route PRN Stop Time Admin Dose Reason Admin 1 inch ONCE STAT 03/04/18 DC 03/04/18 Nitroglycerin TD 10:23 10:35 03/04/18 10:26 (Nitroglyceri n 2% Oint) Aspirin 325 mg ONCE STAT 03/04/18 DC 03/04/18 (Aspirin) PO 10:23 10:33 03/04/18 10:26 Furosemide 40 mg ONCE STAT 03/04/18 DC 03/04/18 (Lasix) IV 10:23 10:36 03/04/18 10:26 IV Flush 3 ml PER 03/04/18 (NS 3 ml) PROTOCOL IV 13:00 Lorazepam 0.5 mg Q8H PRN 03/04/18 (Ativan) PO ANXIETY 13:00 650 mg Q6H PRN 03/04/18 Acetaminophen PO PAIN 13:00 (Tylenol LEVEL 1-3 OR Tab) FEVER 1 tab Q6H PRN 03/04/18 03/08/18 Acetaminophen PO PAIN 13:00 05:38 / LEVEL 4-6 Hydrocodone Bitart ([place] (5/325)) Morphine 2 mg Q4H PRN 03/04/18 DC Sulfate IV PAIN 13:00 (morphine) LEVEL 7-10 03/07/18 10:20 Enalaprilat 1.25 mg ONCE STAT 03/04/18 DC 03/04/18 (Vasotec Iv) IV 12:56 13:36 03/04/18 13:09 Discontinue ONCE ONCE 03/04/18 DC Miscellaneous current oral XX 13:00 sulfonylur... 03/04/18 13:09 Information (* Miscellaneous Pharmacy Order) ONCE ONCE 03/04/18 DC Miscellaneous HYPOGLYCEMIA XX 13:00 PROTOCOL 03/04/18 13:09 Information w... (* Miscellaneous Pharmacy Order) Discontinue ONCE ONCE 03/04/18 DC Miscellaneous all previ... XX 13:00 03/04/18 13:09 Information (* Miscellaneous Pharmacy Order) Ondansetron 4 mg ER BRIDGE 03/04/18 DC HCl (Zofran PRN IV 13:00 Inj) NAUSEA AND/OR 03/04/18 14:18 VOMITING 650 mg ER BRIDGE 03/04/18 DC Acetaminophen PRN PO MILD 13:00 (Tylenol PAIN(1-3)OR 03/04/18 14:18 Tab) ELEVATED TEMP Hydralazine 10 mg Q4H PRN 03/04/18 03/07/18 HCl IV sbp >160 13:00 01:00 (Apresoline) 100 ml @ Q48H IVPB 03/04/18 DC 03/06/18 Levofloxacin/ 100 mls/hr 14:00 13:26 Dextrose 03/06/18 15:18 Albuterol/ 3 ml Q6HWA RESP 03/04/18 03/08/18 Ipratropium THERAPY HHN 14:00 07:58 (Duoneb) Albuterol/ 3 ml Q2H RESP 03/04/18 Ipratropium THERAPY PRN 13:30 (Duoneb) HHN shortness of breath Heparin 5,000 unit Q8 SC 03/04/18 03/08/18 Sodium 14:00 05:44 (Porcine) (Heparin (5000 Units/1ml)) Procedures/MDM DOCUMENTS REVIEWED: ED nurse, prior ED, prior records EKG: Time: 0 940. Sinus rhythm. Ventricular rate 77. Occasional PACs. Left bundle branch block. No Sgarbossa criteria for ischemia. My Interpretation IMAGING: PROCEDURE: XR chest. CLINICAL INDICATION: Shortness of breath TECHNIQUE: A single portable view of the chest was obtained. COMPARISON: 09/07/2014 FINDINGS: Diffuse interstitial and airspace opacities throughout the lungs are identified which could represent pulmonary edema or multifocal infection in the acute setting. Small left pleural effusion is present. Trace right pleural effusion is suspected. There is no pneumothorax. The cardiac silhouette appears prominent but stable in size since the prior exam. The aorta is tortuous and atherosclerotic. Degenerative changes are seen in the shoulders. IMPRESSION: 1. Diffuse interstitial and airspace opacities throughout the lungs which could represent pulmonary edema or multifocal infection in the acute setting. RPTAT: HRF Physician Yumiko Date Time Electronically viewed and signed by Martin Castillo Physician on 03/04/2018 10:43 RF/ MEDICAL DECISION MAKIN-year-old male history of diabetes, hypertension, coronary artery disease status post PCI, cardiomyopathy with EF of 45%, systolic congestive heart failure, chronic kidney disease and gout presents to the ED complaining of a one-week history of worsening shortness of breath, orthopnea and exertional dyspnea. CBC unremarkable for anemia or leukocytosis. Chemistry reveals hyperglycemia but no acidosis and elevated BUN/creatinine consistent with prior results. Troponin is not significantly elevated. Markedly elevated BNP. EKG reveals no acute ischemic changes. Chest x-ray with bilateral interstitial infiltrates. Patient presents with acute congestive heart failure and hypoxia improved with supplemental oxygen, preload reduction and intravenous diuretics. No chest pain, ischemic EKG changes, elevated troponin or signs of acute coronary syndrome. Poorly controlled hypertension. Diabetes mellitus out of control without evidence of DKA or HHS. Admit to telemetry for further ev aluation and management. CRITICAL CARE TIME: Due to the high probability of imminent clinically si gnificant respiratory, cardiovascular and hemodynamic deterioration, this patient with shortness of breath and hypoxia due to acute congestive heart failure required multiple, frequent reevaluations of vital signs and response to therapy. Additional critical care time was spent in extensive review of prior medical records, interpretation of relevant clinical data including labs, EKG and imaging as well as arranging for admission and ongoing care. TOTAL CRITICAL CARE TIME: 35 minutes not including other separately reportable procedures. PATIENT CARE TRANSITIONED: Time: 12:51, Dr. Bee. Counseled patient regarding diagnosis, diagnostic results and plan for admission. Departure Diagnosis: Primary Impression: Acute dyspnea Additional Impressions: Acute systolic CHF (congestive heart failure) Pulmonary edema Chronicity: acute Qualified Codes: J81.0 - Acute pulmonary edema Coronary artery disease Coronary Disease-Associated Artery/Lesion type: unspecified vessel or lesion type [place] vs. transplanted heart: [place] heart Associated angina: with unspecified angina Qualified Codes: I25.119 - Atherosclerotic heart disease of [place] coronary artery with unspecified angina pectoris History of heart artery stent Chronic kidney disease Chronic kidney disease stage: unspecified stage Qualified Codes: N18.9 - Chronic kidney disease, unspecified Hypoxia Poorly-controlled hypertension Diabetes mellitus out of control Condition: Serious SARA BECKER MD Mar 04, 2018 10:22
[2018-03-04] MEDS ORDERED: FUROSEMIDE 40 MG INJ IV STA (10:23)
[2018-03-04] MEDS ORDERED: NITROGLYCERIN 2% 1 GM OINT PKT TD STA (10:23)
[2018-03-04] MEDS ORDERED: ASPIRIN 325 MG TAB PO STA (10:23)
[2018-03-04] MEDS ORDERED: INSU300I SQ (11:19)
[2018-03-04] MEDS ORDERED: ATOR40TA68 PO (11:19)
[2018-03-04] MEDS ORDERED: CARV3.12 PO (11:20)
[2018-03-04] MEDS ORDERED: LIRA0.6P2 SQ (11:20)
[2018-03-04] MEDS ORDERED: HYDR-3672 PO (11:23)
[2018-03-04] MEDS ORDERED: ASPI-817 PO (11:23)
[2018-03-04] MEDS ORDERED: ENALAPRILAT 1.25 MG INJ IV STA (12:56)
[2018-03-04] MEDS ORDERED: LORAZEPAM 0.5 MG TAB PO PRN (13:00)
[2018-03-04] MEDS ORDERED: NACL 0.9% 3 ML SYG IV SCH (13:00)
[2018-03-04] MEDS ORDERED: ONDANSETRON 4 MG INJ IV PRN (13:00)
[2018-03-04] MEDS ORDERED: HYDROCODONE/APAP (5/325) TAB PO PRN (13:00)
[2018-03-04] MEDS ORDERED: morphine 4 MG/ML VIAL IV PRN (13:00)
[2018-03-04] MEDS ORDERED: ACETAMINOPHEN 325 MG TAB PO PRN ×2 (13:00)
--- NOTE | 2018-03-04 13:18 | HP ---
Date/Time of Note Date/Time of Note DATE: 03/04/18 TIME: 13:18 Assessment/Plan VTE Prophylaxis Pharmacological prophylaxis: other Lines/Catheters IV Catheter Type (from Nrs): Saline Lock Assessment/Plan Hospital Course Objective Physical exam General: Patient is laying in bed and answers questions appropriately Mentation: Patient is alert and oriented 4, Head: Normocephalic atraumatic Eyes: EOMI, pupils reactive to light Neck: Supple, nontender, midline Respiratory: Coarse to auscultation bilaterally Cardiovascular: regular rate, no obvious murmurs Gastrointestinal: non-tender to palpation, bowel sounds heard. Neurological: Moves all extremities spontaneously Skin: No new skin lesions Assessment and plan Acute hypoxic respiratory distress -Likely secondary to CHF exacerbation versus mixed picture with underlying developing pneumonia CHF exacerbation -Patient does have chronic kidney disease, will diurese with IV Lasix, patient not on any Lasix at home -Cardiology consulted -Holding beta-abraham for now, restart when okay with cardiology Questionable pneumonia -Patient does not have fever or white count, however x-ray does show possible pneumonia involvement -Levaquin IV for now, titrate off when more information becomes available -Nebulizers Coronary artery disease with stent history -Continue aspirin Plavix -Continue home meds as able per cardiology recommendations Chronic kidney disease -Looking on past admissions, it appears patient's creatinine is anywhere between 2.5 and 3.0, currently patient is at 2.3, it appears stable -However due to the fact that we are now going to diurese patient, will consult nephrology to follow along, Dr. Baig Hypertensive urgency -continue home meds as able as well as as needed medications Diabetes mellitus -Lantus with mealtime and insulin sliding scale GERD -Protonix Disposition -Admit patient for workup including CHF exacerbation and pneumonia, cardiology and nephrology consultation pending. Result Diagram: 03/04/18 0956 03/04/18 0956 Results 24hrs Laboratory Tests Test 03/04/18 09:56 White Blood Count 8.6 # Red Blood Count 4.96 Hemoglobin 14.1 Hematocrit 41.9 L Mean Corpuscular Volume 84.5 Mean Corpuscular Hemoglobin 28.4 L Mean Corpuscular Hemoglobin Concent 33.7 Red Cell Distribution Width 12.9 Platelet Count 295 Mean Platelet Volume 11.1 H Immature Granulocytes % 0.200 Neutrophils % 76.1 Lymphocytes % 9.4 L Monocytes % 9.2 Eosinophils % 4.3 Basophils % 0.8 Nucleated Red Blood Cells % 0.0 Immature Granulocytes # 0.020 Neutrophils # 6.5 Lymphocytes # 0.8 Monocytes # 0.8 Eosinophils # 0.4 Basophils # 0.1 Nucleated Red Blood Cells # 0.0 Prothrombin Time 11.9 Prothrombin Time Ratio 0.9 INR International Normalized Ratio 0.87 Activated Partial Thromboplast Time 29.6 Sodium Level 136 Potassium Level 4.0 Chloride Level 96 L Carbon Dioxide Level 28 Anion Gap 12 Blood Urea Nitrogen 32 H Creatinine 2.32 H Est Glomerular Filtrat Rate mL/min Glucose Level 316 H Calcium Level 9.5 Total Bilirubin 0.6 Direct Bilirubin 0.00 Indirect Bilirubin 0.6 Aspartate Amino Transf (AST/SGOT) 24 Alanine Aminotransferase (ALT/SGPT) 21 Alkaline Phosphatase 133 H Troponin I 0.051 B-Type Natriuretic Peptide 77533 H Total Protein 7.3 Albumin 4.1 Globulin 3.20 Albumin/Globulin Ratio 1.28 HPI/ROS Admit Date/Time Admit Date/Time Hx of Present Illness Patient is a male with a past medical history significant for diabetes mellitus, coronary artery disease status post stent, CHF, chronic kidney disease who presents to [facility] for 1 week of progressively worsening shortness of breath. Currently patient appears comfortable with nasal cannula however states that he has had worsening where shortness of breath for the past week not accompanied with any particular cough or fever. Patient denies any abdominal pain, nausea, vomiting, headache, dizziness, leg pain. PMH/Family/Social Past Medical History Coded Allergies: Penicillins (Verified Allergy, Mild, 03/04/18) Past Surgical History Past Surgical Hx: angioplasty Family History Significant Family History: no pertinent family hx Exam/Review of Systems Vital Signs Vitals Vital Signs Date Temp Pulse Resp B/P (MAP) Pulse Ox O2 O2 Flow FiO2 Time Delivery Rate 03/04/18 71 28 177/107 99 Nasal 2.0 12:51 (130) Cannula 03/04/18 97.7 09:34 ESTRADA TRACY Mar 04, 2018 13:18
[2018-03-04] MEDS ORDERED: ALBUTEROL/IPRATROPIUM (NEB) 3 ML AMP HHN PRN (13:30)
[2018-03-04] MEDS: ALBUTEROL/IPRATROPIUM (NEB) 3 ML AMP HHN SCH ×2 (14:00→20:12)
[2018-03-04 14:27] VITALS: PULSE 69
[2018-03-04 15:12] VITALS: BP 181/91; PULSE 73; RESP 20
--- NOTE | 2018-03-04 15:35 | CONS ---
Date/Time of Note Date/Time of Note DATE: 03/04/18 TIME: 15:23 Assessment/Plan Assessment/Plan Hospital Course 72 yo with dyspnea and exertional chest pain due to congestive heart failure and/or pneumonia. Assessment/Plan Impression: Acute on chronic systolic and diastolic heart failure Hypertension, uncontrolled Possible pneumonia Chronic kidney disease stage 4 Recommendations: Diuresis with IV furosemide, mindful of renal function Will observe blood pressure with diuresis and adjust medications as needed Repeat troponins Result Diagram: 03/04/18 0956 03/04/18 0956 Results 24hrs Laboratory Tests Test 03/04/18 09:56 White Blood Count 8.6 # Red Blood Count 4.96 Hemoglobin 14.1 Hematocrit 41.9 L Mean Corpuscular Volume 84.5 Mean Corpuscular Hemoglobin 28.4 L Mean Corpuscular Hemoglobin Concent 33.7 Red Cell Distribution Width 12.9 Platelet Count 295 Mean Platelet Volume 11.1 H Immature Granulocytes % 0.200 Neutrophils % 76.1 Lymphocytes % 9.4 L Monocytes % 9.2 Eosinophils % 4.3 Basophils % 0.8 Nucleated Red Blood Cells % 0.0 Immature Granulocytes # 0.020 Neutrophils # 6.5 Lymphocytes # 0.8 Monocytes # 0.8 Eosinophils # 0.4 Basophils # 0.1 Nucleated Red Blood Cells # 0.0 Prothrombin Time 11.9 Prothrombin Time Ratio 0.9 INR International Normalized Ratio 0.87 Activated Partial Thromboplast Time 29.6 Sodium Level 136 Potassium Level 4.0 Chloride Level 96 L Carbon Dioxide Level 28 Anion Gap 12 Blood Urea Nitrogen 32 H Creatinine 2.32 H Est Glomerular Filtrat Rate mL/min Glucose Level 316 H Calcium Level 9.5 Total Bilirubin 0.6 Direct Bilirubin 0.00 Indirect Bilirubin 0.6 Aspartate Amino Transf (AST/SGOT) 24 Alanine Aminotransferase (ALT/SGPT) 21 Alkaline Phosphatase 133 H Troponin I 0.051 B-Type Natriuretic Peptide 36994 H Total Protein 7.3 Albumin 4.1 Globulin 3.20 Albumin/Globulin Ratio 1.28 Consultation Date/Type/Reason Admit Date/Time Date of Consultation: Mar 04, 2018 Type of Consult cardiology Reason for Consultation shortness of breath and chest pain Requesting Provider: ESTRADA TRACY Hx of Present Illness 72 yo with known CAD, cardiomyopathy with mildly reduced LVEF 45%, CKD stage 4, hypertension, chronic chf, presents with one month of three-pillow orthopnea, dyspnea and chest pain with exertion, and a week of cough productive of phlegm, with no fever or chills. Since coming into the ER, he feels his breathing is slightly better, received a single dose of IV furosemide. Patient denies missing doses of medications, denies any change in his diet, eats meals at home, is conscientious of sodium. Constitutional: no complaints, improved Eyes: no complaints ENT: no complaints Respiratory: cough, shortness of breath, sputum Cardiovascular: chest pain Gastrointestinal: no complaints Genitourinary: no complaints Musculoskeletal: no complaints Skin: no complaints Neurologic: no complaints Endocrine: no complaints Lymphatic: no complaints Psychological: no complaints, nl mood/affect Immunologic: no complaints Past Medical History Medical History: congestive heart failure, coronary artery disease, hypertension, renal disease Medications Current Medications IV Flush (NS 3 ml) 3 ml PER PROTOCOL IV ; Start 03/04/18 at 13:00 Lorazepam (Ativan) 0.5 mg Q8H PRN PO ANXIETY; Start 03/04/18 at 13:00 Acetaminophen (Tylenol Tab) 650 mg Q6H PRN PO PAIN LEVEL 1-3 OR FEVER; Start 03/04/18 at 13:00 Acetaminophen/ Hydrocodone Bitart ([place] (5/325)) 1 tab Q6H PRN PO PAIN LEVEL 4-6; Start 03/04/18 at 13:00 Morphine Sulfate (morphine) 2 mg Q4H PRN IV PAIN LEVEL 7-10; Start 03/04/18 at 13:00 Diagnostic Test (Pha) (Accu-Chek) 1 ea 02 XX ; Start 03/05/18 at 02:00 Insulin Glargine (Lantus) 20 units DAILY@2000 SC ; Start 03/04/18 at 20:00 Insulin Aspart (Novolog Insulin Pen) 7 unit WITH MEALS SC ; Start 03/04/18 at 18:00 Insulin Aspart (Novolog Insulin Pen) NOVOLOG *MILD* ALGORITHM WITH MEALS BEDTIME SC ; Start 03/04/18 at 18:00 Aspirin (Halfprin) 81 mg DAILY PO ; Start 03/05/18 at 09:00 Atorvastatin Calcium (Lipitor) 40 mg QHS PO ; Start 03/04/18 at 21:00 Carvedilol (Coreg) 3.125 mg BID PO ; Start 03/04/18 at 21:00; Status Future Hold Clopidogrel Bisulfate (plaVIX) 75 mg DAILY PO ; Start 03/05/18 at 09:00 Hydralazine HCl (Apresoline) 50 mg BID PO ; Start 03/04/18 at 21:00 Fish Oil (Fish Oil) 2,000 mg BID PO ; Start 03/04/18 at 21:00 Hydralazine HCl (Apresoline) 10 mg Q4H PRN IV sbp >160; Start 03/04/18 at 13:00 Levofloxacin/ Dextrose 100 ml @ 100 mls/hr Q48H IVPB ; Start 03/04/18 at 14:00 Albuterol/ Ipratropium (Duoneb) 3 ml Q6HWA RESP THERAPY HHN ; Start 03/04/18 at 14:00 Albuterol/ Ipratropium (Duoneb) 3 ml Q2H RESP THERAPY PRN HHN shortness of breath; Start 03/04/18 at 13:30 Pantoprazole (Protonix Tab) 40 mg DAILY@06 PO ; Start 03/05/18 at 06:00 Heparin Sodium (Porcine) (Heparin (5000 Units/1ml)) 5,000 unit Q8 SC ; Start 03/04/18 at 14:00 Furosemide (Lasix) 60 mg BID DIURETICS IV ; Start 03/04/18 at 18:00; Status UNV Allergies: Coded Allergies: Penicillins (Verified Allergy, Mild, 03/04/18) Past Surgical History Past Surgical Hx: angioplasty Family History Significant Family History: no pertinent family hx Social History Alcohol Use: none Smoking Status: Never smoker Drug Use: none Exam/Review of Systems Vital Signs Vitals Vital Signs Date Temp Pulse Resp B/P (MAP) Pulse Ox O2 O2 Flow FiO2 Time Delivery Rate 03/04/18 97.4 73 20 181/91 95 15:12 (121) 03/04/18 Nasal 2.0 14:03 Cannula Exam Constitutional: alert, oriented, well developed Psych: no complaints, nl mood/affect Head: normocephalic, atraumatic Eyes: nl conjunctiva, EOMI, nl lids, nl sclera ENMT: nl external ears & nose, nl lips & teeth, nl nasal mucosa & septum Neck: supple; No jvd, No bruits Respiratory: clear to auscultation, normal air movement Cardiovascular: regular rate and rhythm, nl pulses Gastrointestinal: soft, nl liver, spleen, non-tender Musculoskeletal: nl extremities to inspection Extremities: normal pulses (slightly diminished), edema Neurological: nl mental status, nl speech Skin: nl turgor; No rash or lesions Medications Medications Current Medications IV Flush (NS 3 ml) 3 ml PER PROTOCOL IV ; Start 03/04/18 at 13:00 Lorazepam (Ativan) 0.5 mg Q8H PRN PO ANXIETY; Start 03/04/18 at 13:00 Acetaminophen (Tylenol Tab) 650 mg Q6H PRN PO PAIN LEVEL 1-3 OR FEVER; Start 03/04/18 at 13:00 Acetaminophen/ Hydrocodone Bitart ([place] (5/325)) 1 tab Q6H PRN PO PAIN LEVEL 4-6; Start 03/04/18 at 13:00 Morphine Sulfate (morphine) 2 mg Q4H PRN IV PAIN LEVEL 7-10; Start 03/04/18 at 13:00 Diagnostic Test (Pha) (Accu-Chek) 1 ea 02 XX ; Start 03/05/18 at 02:00 Insulin Glargine (Lantus) 20 units DAILY@2000 SC ; Start 03/04/18 at 20:00 Insulin Aspart (Novolog Insulin Pen) 7 unit WITH MEALS SC ; Start 03/04/18 at 18:00 Insulin Aspart (Novolog Insulin Pen) NOVOLOG *MILD* ALGORITHM WITH MEALS BEDTIME SC ; Start 03/04/18 at 18:00 Aspirin (Halfprin) 81 mg DAILY PO ; Start 03/05/18 at 09:00 Atorvastatin Calcium (Lipitor) 40 mg QHS PO ; Start 03/04/18 at 21:00 Carvedilol (Coreg) 3.125 mg BID PO ; Start 03/04/18 at 21:00; Status Future Hold Clopidogrel Bisulfate (plaVIX) 75 mg DAILY PO ; Start 03/05/18 at 09:00 Hydralazine HCl (Apresoline) 50 mg BID PO ; Start 03/04/18 at 21:00 Fish Oil (Fish Oil) 2,000 mg BID PO ; Start 03/04/18 at 21:00 Hydralazine HCl (Apresoline) 10 mg Q4H PRN IV sbp >160; Start 03/04/18 at 13:00 Levofloxacin/ Dextrose 100 ml @ 100 mls/hr Q48H IVPB ; Start 03/04/18 at 14:00 Albuterol/ Ipratropium (Duoneb) 3 ml Q6HWA RESP THERAPY HHN ; Start 03/04/18 at 14:00 Albuterol/ Ipratropium (Duoneb) 3 ml Q2H RESP THERAPY PRN HHN shortness of breath; Start 03/04/18 at 13:30 Pantoprazole (Protonix Tab) 40 mg DAILY@06 PO ; Start 03/05/18 at 06:00 Heparin Sodium (Porcine) (Heparin (5000 Units/1ml)) 5,000 unit Q8 SC ; Start 03/04/18 at 14:00 Furosemide (Lasix) 60 mg BID DIURETICS IV ; Start 03/04/18 at 18:00; Status UNV Imaging Imaging EKG shows NSR at 77 bpm, left bundle branch block DELROY DE LEON Mar 04, 2018 15:34
[2018-03-04] MEDS: LEVOFLOXACIN 500MG/D5W (PMX) 100 ML IVPB SCH (15:46)
[2018-03-04 16:00] VITALS: PULSE 65
--- NOTE | 2018-03-04 16:19 | CONS ---
Date/Time of Note Date/Time of Note DATE: 03/04/18 TIME: 16:13 Assessment/Plan Assessment/Plan Assessment/Plan 72 yo with known CAD, cardiomyopathy with mildly reduced LVEF 45%, CKD stage 4 baseline cr around 3 liley due to chronic hypertensive nephrosclerosis, hypertension, chronic chf, presents acute decompensated chf. I was asked to see him to monitor renal function while aggressively diuresing him * agree with diuretics * monitor bp and titrtae meds as tolerated * check renal ultrasound * quantify protein * check phos/ pth Result Diagram: 03/04/18 0956 03/04/18 0956 Results 24hrs Laboratory Tests Test 03/04/18 09:56 White Blood Count 8.6 # Red Blood Count 4.96 Hemoglobin 14.1 Hematocrit 41.9 L Mean Corpuscular Volume 84.5 Mean Corpuscular Hemoglobin 28.4 L Mean Corpuscular Hemoglobin Concent 33.7 Red Cell Distribution Width 12.9 Platelet Count 295 Mean Platelet Volume 11.1 H Immature Granulocytes % 0.200 Neutrophils % 76.1 Lymphocytes % 9.4 L Monocytes % 9.2 Eosinophils % 4.3 Basophils % 0.8 Nucleated Red Blood Cells % 0.0 Immature Granulocytes # 0.020 Neutrophils # 6.5 Lymphocytes # 0.8 Monocytes # 0.8 Eosinophils # 0.4 Basophils # 0.1 Nucleated Red Blood Cells # 0.0 Prothrombin Time 11.9 Prothrombin Time Ratio 0.9 INR International Normalized Ratio 0.87 Activated Partial Thromboplast Time 29.6 Sodium Level 136 Potassium Level 4.0 Chloride Level 96 L Carbon Dioxide Level 28 Anion Gap 12 Blood Urea Nitrogen 32 H Creatinine 2.32 H Est Glomerular Filtrat Rate mL/min Glucose Level 316 H Calcium Level 9.5 Total Bilirubin 0.6 Direct Bilirubin 0.00 Indirect Bilirubin 0.6 Aspartate Amino Transf (AST/SGOT) 24 Alanine Aminotransferase (ALT/SGPT) 21 Alkaline Phosphatase 133 H Troponin I 0.051 B-Type Natriuretic Peptide 92979 H Total Protein 7.3 Albumin 4.1 Globulin 3.20 Albumin/Globulin Ratio 1.28 Consultation Date/Type/Reason Admit Date/Time Reason for Consultation evaluation and management of ckd 3 Hx of Present Illness 72 yo with known CAD, cardiomyopathy with mildly reduced LVEF 45%, CKD stage 4 baseline cr high 2s to low 3rs for several years, hypertension, chronic chf, presents with one month of three-pillow orthopnea, dyspnea and chest pain with exertion, and a week of cough productive of phlegm, with no fever or chills. Since coming into the ER, he feels his breathing is slightly better, received a single dose of IV furosemide. Patient denies missing doses of medications, denies any change in his diet. he has no cp or palpitations 14 system review otherwise unremarkable Past Medical History Medical History: angina, congestive heart failure, coronary artery disease, GERD, high cholesterol, hypertension, renal disease Medications Current Medications IV Flush (NS 3 ml) 3 ml PER PROTOCOL IV ; Start 03/04/18 at 13:00 Lorazepam (Ativan) 0.5 mg Q8H PRN PO ANXIETY; Start 03/04/18 at 13:00 Acetaminophen (Tylenol Tab) 650 mg Q6H PRN PO PAIN LEVEL 1-3 OR FEVER; Start 03/04/18 at 13:00 Acetaminophen/ Hydrocodone Bitart ([place] (5/325)) 1 tab Q6H PRN PO PAIN LEVEL 4-6; Start 03/04/18 at 13:00 Morphine Sulfate (morphine) 2 mg Q4H PRN IV PAIN LEVEL 7-10; Start 03/04/18 at 13:00 Diagnostic Test (Pha) (Accu-Chek) 1 ea 02 XX ; Start 03/05/18 at 02:00 Insulin Glargine (Lantus) 20 units DAILY@2000 SC ; Start 03/04/18 at 20:00 Insulin Aspart (Novolog Insulin Pen) 7 unit WITH MEALS SC ; Start 03/04/18 at 18:00 Insulin Aspart (Novolog Insulin Pen) NOVOLOG *MILD* ALGORITHM WITH MEALS BEDTIME SC ; Start 03/04/18 at 18:00 Aspirin (Halfprin) 81 mg DAILY PO ; Start 03/05/18 at 09:00 Atorvastatin Calcium (Lipitor) 40 mg QHS PO ; Start 03/04/18 at 21:00 Carvedilol (Coreg) 3.125 mg BID PO ; Start 03/04/18 at 21:00; Status Future Hold Clopidogrel Bisulfate (plaVIX) 75 mg DAILY PO ; Start 03/05/18 at 09:00 Hydralazine HCl (Apresoline) 50 mg BID PO ; Start 03/04/18 at 21:00 Fish Oil (Fish Oil) 2,000 mg BID PO ; Start 03/04/18 at 21:00 Hydralazine HCl (Apresoline) 10 mg Q4H PRN IV sbp >160; Start 03/04/18 at 13:00 Levofloxacin/ Dextrose 100 ml @ 100 mls/hr Q48H IVPB ; Start 03/04/18 at 14:00 Albuterol/ Ipratropium (Duoneb) 3 ml Q6HWA RESP THERAPY HHN ; Start 03/04/18 at 14:00 Albuterol/ Ipratropium (Duoneb) 3 ml Q2H RESP THERAPY PRN HHN shortness of breath; Start 03/04/18 at 13:30 Pantoprazole (Protonix Tab) 40 mg DAILY@06 PO ; Start 03/05/18 at 06:00 Heparin Sodium (Porcine) (Heparin (5000 Units/1ml)) 5,000 unit Q8 SC ; Start 03/04/18 at 14:00 Furosemide (Lasix) 60 mg BID DIURETICS IV ; Start 03/04/18 at 18:00 Allergies: Coded Allergies: Penicillins (Verified Allergy, Mild, 03/04/18) Past Surgical History Past Surgical Hx: noncontributory, angioplasty Family History Significant Family History: no pertinent family hx Social History Alcohol Use: none Smoking Status: Never smoker Drug Use: none Exam/Review of Systems Vital Signs Vitals Vital Signs Date Temp Pulse Resp B/P (MAP) Pulse Ox O2 O2 Flow FiO2 Time Delivery Rate 03/04/18 97.4 73 20 181/91 95 15:12 (121) 03/04/18 Nasal 2.0 14:03 Cannula Exam Constitutional: alert, oriented Head: normocephalic Eyes: nl conjunctiva Respiratory: congested cough, diminished breath sounds Cardiovascular: regular rate and rhythm, nl pulses, edema Gastrointestinal: soft Medications Medications Current Medications IV Flush (NS 3 ml) 3 ml PER PROTOCOL IV ; Start 03/04/18 at 13:00 Lorazepam (Ativan) 0.5 mg Q8H PRN PO ANXIETY; Start 03/04/18 at 13:00 Acetaminophen (Tylenol Tab) 650 mg Q6H PRN PO PAIN LEVEL 1-3 OR FEVER; Start 03/04/18 at 13:00 Acetaminophen/ Hydrocodone Bitart ([place] (5/325)) 1 tab Q6H PRN PO PAIN LEVEL 4-6; Start 03/04/18 at 13:00 Morphine Sulfate (morphine) 2 mg Q4H PRN IV PAIN LEVEL 7-10; Start 03/04/18 at 13:00 Diagnostic Test (Pha) (Accu-Chek) 1 ea 02 XX ; Start 03/05/18 at 02:00 Insulin Glargine (Lantus) 20 units DAILY@2000 SC ; Start 03/04/18 at 20:00 Insulin Aspart (Novolog Insulin Pen) 7 unit WITH MEALS SC ; Start 03/04/18 at 18:00 Insulin Aspart (Novolog Insulin Pen) NOVOLOG *MILD* ALGORITHM WITH MEALS BEDTIME SC ; Start 03/04/18 at 18:00 Aspirin (Halfprin) 81 mg DAILY PO ; Start 03/05/18 at 09:00 Atorvastatin Calcium (Lipitor) 40 mg QHS PO ; Start 03/04/18 at 21:00 Carvedilol (Coreg) 3.125 mg BID PO ; Start 03/04/18 at 21:00; Status Future Hold Clopidogrel Bisulfate (plaVIX) 75 mg DAILY PO ; Start 03/05/18 at 09:00 Hydralazine HCl (Apresoline) 50 mg BID PO ; Start 03/04/18 at 21:00 Fish Oil (Fish Oil) 2,000 mg BID PO ; Start 03/04/18 at 21:00 Hydralazine HCl (Apresoline) 10 mg Q4H PRN IV sbp >160; Start 03/04/18 at 13:00 Levofloxacin/ Dextrose 100 ml @ 100 mls/hr Q48H IVPB ; Start 03/04/18 at 14:00 Albuterol/ Ipratropium (Duoneb) 3 ml Q6HWA RESP THERAPY HHN ; Start 03/04/18 at 14:00 Albuterol/ Ipratropium (Duoneb) 3 ml Q2H RESP THERAPY PRN HHN shortness of breath; Start 03/04/18 at 13:30 Pantoprazole (Protonix Tab) 40 mg DAILY@06 PO ; Start 03/05/18 at 06:00 Heparin Sodium (Porcine) (Heparin (5000 Units/1ml)) 5,000 unit Q8 SC ; Start 03/04/18 at 14:00 Furosemide (Lasix) 60 mg BID DIURETICS IV ; Start 03/04/18 at 18:00 OMAR TREJO MD Mar 04, 2018 16:19
[2018-03-04] MEDS: HEPARIN 5,000 UNIT/1 ML VIAL SC SCH ×2 (16:32→21:34)
[2018-03-04] MEDS: INSULIN ASPART [NOVOLOG] 3 ML PEN SC SCH ×3 (17:32→21:00)
[2018-03-04] MEDS ORDERED: FUROSEMIDE 20 MG INJ IV SCH (18:00)
[2018-03-04] MEDS: FUROSEMIDE 20 MG INJ IV SCH (18:35)
--- NOTE | 2018-03-04 18:50 | NUR ---
pt is a/x 4 , mostly Yoruba speaking, able to walk with his can , but due to SOB , resting in bed now. O2 2L , SR on monitor, pt REFUSED the bed alarm , he said it made him so anxious. pt has no pain at this moment , no complain at this time. resting in bed.
[2018-03-04 20:00] VITALS: PULSE 73
[2018-03-04 20:01] VITALS: BP 181/105; PULSE 75; RESP 20
[2018-03-04] MEDS: hydrALAzine 20 MG INJ IV PRN (20:02)
[2018-03-04] MEDS: ATORVASTATIN 40 MG TAB PO SCH (20:59)
[2018-03-04] MEDS: FISH OIL 1,000 MG CAP PO SCH (21:00)
[2018-03-04] MEDS: INSULIN GLARGINE [LANTus] (100 UNITS/ML) SYG SC SCH (21:17)
[2018-03-04 23:58] VITALS: BP 148/80; PULSE 72; RESP 18
[2018-03-05] VITALS (10 sets, daily range): BP systolic 121–191; BP diastolic 62–92; PULSE 66–86; RESP 18
[2018-03-05] MEDS: ACCU-CHEK XX SCH (02:00)
[2018-03-05] MEDS: PANTOPRAZOLE (EC) 40 MG TAB PO SCH (05:35)
[2018-03-05] MEDS: FUROSEMIDE 20 MG INJ IV SCH ×2 (05:37→17:07)
[2018-03-05] MEDS: HEPARIN 5,000 UNIT/1 ML VIAL SC SCH ×3 (05:42→22:47)
[2018-03-05] MEDS: INSULIN ASPART [NOVOLOG] 3 ML PEN SC SCH ×7 (07:29→21:00)
[2018-03-05] MEDS: CLOPIDOGREL 75 MG TAB PO SCH (08:09)
[2018-03-05] MEDS: ASPIRIN (EC) 81 MG TAB PO SCH (08:09)
[2018-03-05] MEDS: FISH OIL 1,000 MG CAP PO SCH ×2 (08:09→21:06)
[2018-03-05] MEDS: ALBUTEROL/IPRATROPIUM (NEB) 3 ML AMP HHN SCH ×3 (08:24→20:18)
--- NOTE | 2018-03-05 14:25 | PN ---
Date/Time of Note Date/Time of Note DATE: 03/05/18 TIME: 14:23 Assessment/Plan VTE Prophylaxis Risk score (from Ns)>0 risk: 3 SCD applied (from Ns): No SCD contraindicated: low risk/ambulating Pharmacological prophylaxis: heparin Lines/Catheters IV Catheter Type (from Nrs): Saline Lock Urinary Cath still in place: No Assessment/Plan Hospital Course Diuresing effectively EXAM: Comfortable Pleasant ++ JVD Clear lungs No peripheral edema A/P: 72 yo male with uncontrolled DMII presents with cardiorenal syndroem - Continue diuresis to euvolemia, edema 2/2 CKD IV - DMII control with basal/bolus insulin - CKD management per nephrology Result Diagram: 03/05/18 0514 03/05/18 0514 Results 24hrs Laboratory Tests Test 03/04/18 16:13 03/04/18 17:08 03/04/18 17:23 03/04/18 20:55 Troponin I 0.055 Urine Color STRAW Urine Clarity CLEAR Urine pH 7.0 Urine Specific 1.008 [place] Urine Ketones NEGATIVE Urine Nitrite NEGATIVE Urine Bilirubin NEGATIVE Urine Urobilinogen NEGATIVE Urine Leukocyte NEGATIVE Esterase Urine Microscopic 7 H RBC Urine Microscopic 1 WBC Urine Mucus FEW A Urine Hemoglobin 1+ H Urine Glucose 2+ H Urine Total Protein 251.0 H Bedside Glucose 361 H 127 Test 03/04/18 21:57 03/05/18 05:14 03/05/18 07:20 03/05/18 11:51 Troponin I 0.075 White Blood Count 8.1 Red Blood Count 4.45 L Hemoglobin 12.5 L Hematocrit 37.1 L Mean Corpuscular 83.4 Volume Mean Corpuscular 28.1 L Hemoglobin Mean Corpuscular 33.7 Hemoglobin Concent Red Cell 12.9 Distribution Width Platelet Count 231 # Mean Platelet Volume 10.8 H Immature 0.200 Granulocytes % Neutrophils % 68.9 Lymphocytes % 13.6 L Monocytes % 12.1 H Eosinophils % 4.3 Basophils % 0.9 Nucleated Red Blood 0.0 Cells % Immature 0.020 Granulocytes # Neutrophils # 5.6 Lymphocytes # 1.1 Monocytes # 1.0 H Eosinophils # 0.4 Basophils # 0.1 Nucleated Red Blood 0.0 Cells # Sodium Level 138 Potassium Level 3.4 L Chloride Level 99 Carbon Dioxide Level 29 Anion Gap 10 Blood Urea Nitrogen 42 H Creatinine 2.62 H Est Glomerular Filtrat Rate mL/min Glucose Level 121 # Hemoglobin A1c 12.3 H Calcium Level 9.1 Phosphorus Level 3.7 Magnesium Level 2.0 Total Bilirubin 0.5 Direct Bilirubin 0.00 Indirect Bilirubin 0.5 Aspartate Amino 16 Transf (AST/SGOT) Alanine 16 Aminotransferase (AL T/SGPT) Alkaline Phosphatase 94 Total Protein 6.0 #L Albumin 3.3 Globulin 2.70 Albumin/Globulin 1.22 Ratio Triglycerides Level 120 Cholesterol Level 111 LDL Cholesterol, 48 Calculated HDL Cholesterol 39 Cholesterol/HDL 2.8 Ratio Thyroid Stimulating 2.340 Hormone (TSH) Bedside Glucose 150 220 Exam/Review of Systems Vital Signs Vitals Vital Signs Date Temp Pulse Resp B/P (MAP) Pulse Ox O2 O2 Flow FiO2 Time Delivery Rate 03/05/18 80 20 Nasal 2.0 13:35 Cannula 03/05/18 97.8 163/81 94 11:18 (108) Intake and Output 03/04/18 03/04/18 03/05/18 1515:00 23:00 07:00 IntakeIntake Total 550 ml 600 ml OutputOutput Total 600 ml 800 ml 1000 ml BalanceBalance -600 ml -250 ml -400 ml Medications Medications Current Medications IV Flush (NS 3 ml) 3 ml PER PROTOCOL IV ; Start 03/04/18 at 13:00 Lorazepam (Ativan) 0.5 mg Q8H PRN PO ANXIETY; Start 03/04/18 at 13:00 Acetaminophen (Tylenol Tab) 650 mg Q6H PRN PO PAIN LEVEL 1-3 OR FEVER; Start 03/04/18 at 13:00 Acetaminophen/ Hydrocodone Bitart ([place] (5/325)) 1 tab Q6H PRN PO PAIN LEVEL 4-6; Start 03/04/18 at 13:00 Morphine Sulfate (morphine) 2 mg Q4H PRN IV PAIN LEVEL 7-10; Start 03/04/18 at 13:00 Diagnostic Test (Pha) (Accu-Chek) 1 XX ; Start 03/05/18 at 02:00 Insulin Glargine (Lantus) 20 units DAILY@2000 SC Last administered on 03/04/18at 21:17; Admin Dose 20 UNITS; Start 03/04/18 at 20:00 Insulin Aspart (Novolog Insulin Pen) 7 unit WITH MEALS SC Last administered on 03/05/18at 11:59; Admin Dose 7 UNIT; Start 03/04/18 at 18:00 Insulin Aspart (Novolog Insulin Pen) NOVOLOG *MILD* ALGORITHM WITH MEALS BEDTIME SC Last administered on 03/05/18 12:00; Admin Dose 2 UNIT; Start 03/04/18 at 18:00 Aspirin (Halfprin) 81 mg DAILY PO Last administered on 03/05/18 08:09; Admin Dose 81 MG; Start 03/05/18 at 09:00 Atorvastatin Calcium (Lipitor) 40 mg QHS PO Last administered on 03/04/18 20:59; Admin Dose 40 MG; Start 03/04/18 at 21:00 Carvedilol (Coreg) 3.125 mg BID PO ; Start 03/04/18 at 21:00; Status Hold Clopidogrel Bisulfate (plaVIX) 75 mg DAILY PO Last administered on 03/05/18 08:09; Admin Dose 75 MG; Start 03/05/18 at 09:00 Hydralazine HCl (Apresoline) 50 mg BID PO Last administered on 03/05/18 08:09; Admin Dose 50 MG; Start 03/04/18 at 21:00 Fish Oil (Fish Oil) 2,000 mg BID PO Last administered on 03/05/18 08:09; Admin Dose 2,000 MG; Start 03/04/18 at 21:00 Hydralazine HCl (Apresoline) 10 mg Q4H PRN IV sbp >160 Last administered on 03/04/18 20:02; Admin Dose 10 MG; Start 03/04/18 at 13:00 Levofloxacin/ Dextrose 100 ml @ 100 mls/hr Q48H IVPB Last administered on 03/04/18 15:46; Admin Dose 100 MLS/HR; Start 03/04/18 at 14:00 Albuterol/ Ipratropium (Duoneb) 3 ml Q6HWA RESP THERAPY HHN Last administered on 03/05/18 13:32; Admin Dose 3 ML; Start 03/04/18 at 14:00 Albuterol/ Ipratropium (Duoneb) 3 ml Q2H RESP THERAPY PRN HHN shortness of breath; Start 03/04/18 at 13:30 Pantoprazole (Protonix Tab) 40 mg DAILY@06 PO Last administered on 03/05/18 05:35; Admin Dose 40 MG; Start 03/05/18 at 06:00 Heparin Sodium (Porcine) (Heparin (5000 Units/1ml)) 5,000 unit Q8 SC Last administered on 03/05/18at 05:42; Admin Dose 5,000 UNIT; Start 03/04/18 at 14:00 Furosemide (Lasix) 60 mg BID DIURETICS IV Last administered on 03/05/18at 05:37; Admin Dose 60 MG; Start 03/04/18 at 18:00 KELY BAUTISTA MD Mar 05, 2018 14:25
--- NOTE | 2018-03-05 17:13 | PN ---
Date/Time of Note Date/Time of Note DATE: 03/05/18 TIME: 17:09 Assessment/Plan VTE Prophylaxis Risk score (from Ns)>0 risk: 3 SCD applied (from Ns): No SCD contraindicated: other (see hospitalist note) Pharmacological prophylaxis: heparin Lines/Catheters IV Catheter Type (from Nrs): Saline Lock Urinary Cath still in place: No Assessment/Plan Hospital Course 72 yo with dyspnea and exertional chest pain due to congestive heart failure, with ckd stage 4. Assessment/Plan Impression: Acute on chronic systolic and diastolic heart failure Hypertension, uncontrolled Chronic kidney disease stage 4 Recommendations: Continue diuresis with IV furosemide, mindful of renal function Increase carvedilol to 6.25 mg po bid for better bp control Consider addition of amlodipine for bp control Dr. Traylor/Bette to return tomorrow Result Diagram: 03/05/1814 03/05/1814 Results 24hrs Laboratory Tests Test 03/04/18 17:23 03/04/18 20:55 03/04/18 21:57 03/05/18 05:14 Bedside Glucose 361 H 127 Troponin I 0.075 White Blood Count 8.1 Red Blood Count 4.45 L Hemoglobin 12.5 L Hematocrit 37.1 L Mean Corpuscular 83.4 Volume Mean Corpuscular 28.1 L Hemoglobin Mean Corpuscular 33.7 Hemoglobin Concent Red Cell 12.9 Distribution Width Platelet Count 231 # Mean Platelet Volume 10.8 H Immature 0.200 Granulocytes % Neutrophils % 68.9 Lymphocytes % 13.6 L Monocytes % 12.1 H Eosinophils % 4.3 Basophils % 0.9 Nucleated Red Blood 0.0 Cells % Immature 0.020 Granulocytes # Neutrophils # 5.6 Lymphocytes # 1.1 Monocytes # 1.0 H Eosinophils # 0.4 Basophils # 0.1 Nucleated Red Blood 0.0 Cells # Sodium Level 138 Potassium Level 3.4 L Chloride Level 99 Carbon Dioxide Level 29 Anion Gap 10 Blood Urea Nitrogen 42 H Creatinine 2.62 H Est Glomerular Filtrat Rate mL/min Glucose Level 121 # Hemoglobin A1c 12.3 H Calcium Level 9.1 Phosphorus Level 3.7 Magnesium Level 2.0 Total Bilirubin 0.5 Direct Bilirubin 0.00 Indirect Bilirubin 0.5 Aspartate Amino 16 Transf (AST/SGOT) Alanine 16 Aminotransferase (AL T/SGPT) Alkaline Phosphatase 94 Total Protein 6.0 #L Albumin 3.3 Globulin 2.70 Albumin/Globulin 1.22 Ratio Triglycerides Level 120 Cholesterol Level 111 LDL Cholesterol, 48 Calculated HDL Cholesterol 39 Cholesterol/HDL 2.8 Ratio Thyroid Stimulating 2.340 Hormone (TSH) Test 03/05/18 07:20 03/05/18 11:51 Bedside Glucose 150 220 Subjective 24 Hr Interval Summary Free Text/Dictation He feels better, but still short of breath with ambulating in the room. Family at bedside. No pain Exam/Review of Systems Vital Signs Vitals Vital Signs Date Temp Pulse Resp B/P (MAP) Pulse Ox O2 O2 Flow FiO2 Time Delivery Rate 03/05/18 72 16:54 03/05/18 98.2 18 174/92 96 15:05 (119) 03/05/18 Nasal 2.0 13:35 Cannula Intake and Output 03/04/18 03/04/18 03/05/18 1515:00 23:00 07:00 IntakeIntake Total 550 ml 600 ml OutputOutput Total 600 ml 800 ml 1000 ml BalanceBalance -600 ml -250 ml -400 ml Exam Constitutional: alert, oriented, well developed Psych: no complaints, nl mood/affect Head: normocephalic, atraumatic Eyes: nl conjunctiva, EOMI, nl lids, nl sclera ENMT: nl external ears & nose, nl lips & teeth Neck: supple; No jvd, No bruits Respiratory: clear to auscultation, normal air movement Cardiovascular: regular rate and rhythm; No jugular venous distention (JVD), No murmurs/extra sounds Gastrointestinal: soft, nl liver, spleen, non-tender Musculoskeletal: nl extremities to inspection, nl gait and stance Extremities: normal pulses, edema (trace) Neurological: nl mental status, nl speech Skin: nl turgor; No rash or lesions Medications Medications Current Medications IV Flush (NS 3 ml) 3 ml PER PROTOCOL IV ; Start 03/04/18 at 13:00 Lorazepam (Ativan) 0.5 mg Q8H PRN PO ANXIETY; Start 03/04/18 at 13:00 Acetaminophen (Tylenol Tab) 650 mg Q6H PRN PO PAIN LEVEL 1-3 OR FEVER; Start 03/04/18 at 13:00 Acetaminophen/ Hydrocodone Bitart ([place] (5/325)) 1 tab Q6H PRN PO PAIN LEVEL 4-6; Start 03/04/18 at 13:00 Morphine Sulfate (morphine) 2 mg Q4H PRN IV PAIN LEVEL 7-10; Start 03/04/18 at 13:00 Diagnostic Test (Pha) (Accu-Chek) 1 ea 02 XX ; Start 03/05/18 at 02:00 Insulin Glargine (Lantus) 20 units DAILY@2000 SC Last administered on 03/04/18 21:17; Admin Dose 20 UNITS; Start 03/04/18 at 20:00 Insulin Aspart (Novolog Insulin Pen) 7 unit WITH MEALS SC Last administered on 03/05/18at 17:04; Admin Dose 7 UNIT; Start 03/04/18 at 18:00 Insulin Aspart (Novolog Insulin Pen) NOVOLOG *MILD* ALGORITHM WITH MEALS BEDTIME SC Last administered on 03/05/18at 17:04; Admin Dose 2 UNIT; Start 03/04/18 at 18:00 Aspirin (Halfprin) 81 mg DAILY PO Last administered on 03/05/18 08:09; Admin Dose 81 MG; Start 03/05/18 at 09:00 Atorvastatin Calcium (Lipitor) 40 mg QHS PO Last administered on 03/04/18 20:59; Admin Dose 40 MG; Start 03/04/18 at 21:00 Clopidogrel Bisulfate (plaVIX) 75 mg DAILY PO Last administered on 03/05/18at 08:09; Admin Dose 75 MG; Start 03/05/18 at 09:00 Hydralazine HCl (Apresoline) 50 mg BID PO Last administered on 03/05/18 08:09; Admin Dose 50 MG; Start 03/04/18 at 21:00 Fish Oil (Fish Oil) 2,000 mg BID PO Last administered on 03/05/18 08:09; Admin Dose 2,000 MG; Start 03/04/18 at 21:00 Hydralazine HCl (Apresoline) 10 mg Q4H PRN IV sbp >160 Last administered on 03/04/18at 20:02; Admin Dose 10 MG; Start 03/04/18 at 13:00 Levofloxacin/ Dextrose 100 ml @ 100 mls/hr Q48H IVPB Last administered on 03/04/18at 15:46; Admin Dose 100 MLS/HR; Start 03/04/18 at 14:00 Albuterol/ Ipratropium (Duoneb) 3 ml Q6HWA RESP THERAPY HHN Last administered on 03/05/18at 13:32; Admin Dose 3 ML; Start 03/04/18 at 14:00 Albuterol/ Ipratropium (Duoneb) 3 ml Q2H RESP THERAPY PRN HHN shortness of breath; Start 03/04/18 at 13:30 Pantoprazole (Protonix Tab) 40 mg DAILY@06 PO Last administered on 03/05/18at 05:35; Admin Dose 40 MG; Start 03/05/18 at 06:00 Heparin Sodium (Porcine) (Heparin (5000 Units/1ml)) 5,000 unit Q8 SC Last administered on 03/05/18at 14:47; Admin Dose 5,000 UNIT; Start 03/04/18 at 14:00 Furosemide (Lasix) 60 mg BID DIURETICS IV Last administered on 03/05/18at 17:07; Admin Dose 60 MG; Start 03/04/18 at 18:00 Carvedilol (Coreg) 6.25 mg BID PO ; Start 03/05/18 at 21:00 DELROY DE LEON Mar 05, 2018 17:13
--- NOTE | 2018-03-05 19:42 | CONS ---
Date/Time of Note Date/Time of Note DATE: 03/05/18 TIME: 19:37 Assessment/Plan Assessment/Plan Assessment/Plan 72 yo with known CAD, cardiomyopathy with mildly reduced LVEF 45%, CKD stage 4 baseline cr around 3 liley due to chronic hypertensive nephrosclerosis, hypertension, chronic chf, presents acute decompensated chf. * acute decompensated CHF: improved with diuretics * ckd4: cr higher today but close to baseline. cont to monitor renal function as we diurese * htn: bp fair control. coreg dose increased. monitor and add meds as needed * anemia: mild and stable * poorly controlled dm: hba1c 12. needs endo eval Result Diagram: 03/05/18 0514 03/05/18 0514 Results 24hrs Laboratory Tests Test 03/04/18 20:55 03/04/18 21:57 03/05/18 05:14 03/05/18 07:20 Bedside Glucose 127 150 Troponin I 0.075 White Blood Count 8.1 Red Blood Count 4.45 L Hemoglobin 12.5 L Hematocrit 37.1 L Mean Corpuscular 83.4 Volume Mean Corpuscular 28.1 L Hemoglobin Mean Corpuscular 33.7 Hemoglobin Concent Red Cell 12.9 Distribution Width Platelet Count 231 # Mean Platelet Volume 10.8 H Immature 0.200 Granulocytes % Neutrophils % 68.9 Lymphocytes % 13.6 L Monocytes % 12.1 H Eosinophils % 4.3 Basophils % 0.9 Nucleated Red Blood 0.0 Cells % Immature 0.020 Granulocytes # Neutrophils # 5.6 Lymphocytes # 1.1 Monocytes # 1.0 H Eosinophils # 0.4 Basophils # 0.1 Nucleated Red Blood 0.0 Cells # Sodium Level 138 Potassium Level 3.4 L Chloride Level 99 Carbon Dioxide Level 29 Anion Gap 10 Blood Urea Nitrogen 42 H Creatinine 2.62 H Est Glomerular Filtrat Rate mL/min Glucose Level 121 # Hemoglobin A1c 12.3 H Calcium Level 9.1 Phosphorus Level 3.7 Magnesium Level 2.0 Total Bilirubin 0.5 Direct Bilirubin 0.00 Indirect Bilirubin 0.5 Aspartate Amino 16 Transf (AST/SGOT) Alanine 16 Aminotransferase (AL T/SGPT) Alkaline Phosphatase 94 Total Protein 6.0 #L Albumin 3.3 Globulin 2.70 Albumin/Globulin 1.22 Ratio Triglycerides Level 120 Cholesterol Level 111 LDL Cholesterol, 48 Calculated HDL Cholesterol 39 Cholesterol/HDL 2.8 Ratio Thyroid Stimulating 2.340 Hormone (TSH) Test 03/05/18 11:51 03/05/18 17:00 Bedside Glucose 220 202 Consultation Date/Type/Reason Admit Date/Time Mar 04, 2018 at 14:17 Initial Consult Date 03/04/18 Requesting Provider: ESTRADA TRACY 24 HR Interval Summary Free Text/Dictation feels better. less sob. no cp Exam/Review of Systems Vital Signs Vitals Vital Signs Date Temp Pulse Resp B/P (MAP) Pulse Ox O2 O2 Flow FiO2 Time Delivery Rate 03/05/18 2.0 17:54 03/05/18 72 16:54 03/05/18 98.2 18 174/92 96 15:05 (119) 03/05/18 Nasal 13:35 Cannula Intake and Output 03/04/18 03/04/18 03/05/18 1515:00 23:00 07:00 IntakeIntake Total 550 ml 600 ml OutputOutput Total 600 ml 800 ml 1000 ml BalanceBalance -600 ml -250 ml -400 ml Exam Constitutional: alert, oriented Psych: no complaints Head: normocephalic Neck: supple Respiratory: diminished breath sounds Cardiovascular: regular rate and rhythm, edema Gastrointestinal: soft Medications Medications Current Medications IV Flush (NS 3 ml) 3 ml PER PROTOCOL IV ; Start 03/04/18 at 13:00 Lorazepam (Ativan) 0.5 mg Q8H PRN PO ANXIETY; Start 03/04/18 at 13:00 Acetaminophen (Tylenol Tab) 650 mg Q6H PRN PO PAIN LEVEL 1-3 OR FEVER; Start 03/04/18 at 13:00 Acetaminophen/ Hydrocodone Bitart ([place] (5/325)) 1 tab Q6H PRN PO PAIN LEVEL 4-6; Start 03/04/18 at 13:00 Morphine Sulfate (morphine) 2 mg Q4H PRN IV PAIN LEVEL 7-10; Start 03/04/18 at 13:00 Diagnostic Test (Pha) (Accu-Chek) 1 ea 02 XX ; Start 03/05/18 at 02:00 Insulin Glargine (Lantus) 20 units DAILY@2000 SC Last administered on 03/04/18at 21:17; Admin Dose 20 UNITS; Start 03/04/18 at 20:00 Insulin Aspart (Novolog Insulin Pen) 7 unit WITH MEALS SC Last administered on 03/05/18 17:04; Admin Dose 7 UNIT; Start 03/04/18 at 18:00 Insulin Aspart (Novolog Insulin Pen) NOVOLOG *MILD* ALGORITHM WITH MEALS BEDTIME SC Last administered on 03/05/18 17:04; Admin Dose 2 UNIT; Start 03/04/18 at 18:00 Aspirin (Halfprin) 81 mg DAILY PO Last administered on 03/05/18 08:09; Admin Dose 81 MG; Start 03/05/18 at 09:00 Atorvastatin Calcium (Lipitor) 40 mg QHS PO Last administered on 03/04/18 20:59; Admin Dose 40 MG; Start 03/04/18 at 21:00 Clopidogrel Bisulfate (plaVIX) 75 mg DAILY PO Last administered on 03/05/18 08:09; Admin Dose 75 MG; Start 03/05/18 at 09:00 Hydralazine HCl (Apresoline) 50 mg BID PO Last administered on 03/05/18 08:09; Admin Dose 50 MG; Start 03/04/18 at 21:00 Fish Oil (Fish Oil) 2,000 mg BID PO Last administered on 03/05/18 08:09; Admin Dose 2,000 MG; Start 03/04/18 at 21:00 Hydralazine HCl (Apresoline) 10 mg Q4H PRN IV sbp >160 Last administered on 03/04/18 20:02; Admin Dose 10 MG; Start 03/04/18 at 13:00 Levofloxacin/ Dextrose 100 ml @ 100 mls/hr Q48H IVPB Last administered on 03/04/18 15:46; Admin Dose 100 MLS/HR; Start 03/04/18 at 14:00 Albuterol/ Ipratropium (Duoneb) 3 ml Q6HWA RESP THERAPY HHN Last administered on 03/05/18 13:32; Admin Dose 3 ML; Start 03/04/18 at 14:00 Albuterol/ Ipratropium (Duoneb) 3 ml Q2H RESP THERAPY PRN HHN shortness of breath; Start 03/04/18 at 13:30 Pantoprazole (Protonix Tab) 40 mg DAILY@06 PO Last administered on 03/05/18at 0 5:35; Admin Dose 40 MG; Start 03/05/18 at 06:00 Heparin Sodium (Porcine) (Heparin (5000 Units/1ml)) 5,000 unit Q8 SC Last administered on 03/05/18at 14:47; Admin Dose 5,000 UNIT; Start 03/04/18 at 14:00 Furosemide (Lasix) 60 mg BID DIURETICS IV Last administered on 03/05/18at 17:07; Admin Dose 60 MG; Start 03/04/18 at 18:00 Carvedilol (Coreg) 6.25 mg BID PO ; Start 03/05/18 at 21:00 OMAR TREJO MD Mar 05, 2018 19:42
[2018-03-05] MEDS: hydrALAzine 20 MG INJ IV PRN (19:57)
[2018-03-05] MEDS: ATORVASTATIN 40 MG TAB PO SCH (21:06)
[2018-03-05] MEDS: INSULIN GLARGINE [LANTus] (100 UNITS/ML) SYG SC SCH (21:13)
[2018-03-05] MEDS ORDERED: MAGNESIUM HYDROXIDE 30ML CUP PO ONE (21:30)
[2018-03-06] VITALS (11 sets, daily range): BP systolic 135–161; BP diastolic 70–87; PULSE 58–86; RESP 17–18
[2018-03-06] MEDS: ACCU-CHEK XX SCH (02:00)
[2018-03-06] MEDS: PANTOPRAZOLE (EC) 40 MG TAB PO SCH (06:10)
[2018-03-06] MEDS: FUROSEMIDE 20 MG INJ IV SCH ×2 (06:11→17:40)
[2018-03-06] MEDS: HEPARIN 5,000 UNIT/1 ML VIAL SC SCH ×3 (06:30→21:33)
--- NOTE | 2018-03-06 06:55 | NUR ---
Pt a/a/ox4, Guamanian speaking only, VS stable,afebrile, Denied pain. Pt stated not having BM for 5 days, Milk magnesia was given, Still not have BM. Dr Santiago notified, awaiting for MD to give order. Blood sugar normal. Continue care plan.
[2018-03-06] MEDS: MAGNESIUM HYDROXIDE 30ML CUP PO SCH ×2 (08:29→20:20)
[2018-03-06] MEDS: CLOPIDOGREL 75 MG TAB PO SCH (08:30)
[2018-03-06] MEDS: ASPIRIN (EC) 81 MG TAB PO SCH (08:30)
[2018-03-06] MEDS: FISH OIL 1,000 MG CAP PO SCH ×2 (08:30→20:20)
[2018-03-06] MEDS: INSULIN ASPART [NOVOLOG] 3 ML PEN SC SCH ×7 (08:44→20:15)
[2018-03-06] MEDS: ALBUTEROL/IPRATROPIUM (NEB) 3 ML AMP HHN SCH ×3 (08:52→21:45)
[2018-03-06] MEDS: LEVOFLOXACIN 500MG/D5W (PMX) 100 ML IVPB SCH (13:26)
--- NOTE | 2018-03-06 13:28 | PN ---
Date/Time of Note Date/Time of Note DATE: 03/06/18 TIME: 13:27 Assessment/Plan VTE Prophylaxis Risk score (from Ns)>0 risk: 3 SCD applied (from Ns): No SCD contraindicated: low risk/ambulating Pharmacological prophylaxis: heparin Lines/Catheters IV Catheter Type (from Nrs): [place] Lock Urinary Cath still in place: No Assessment/Plan Hospital Course 72 yo male with uncontrolled DMII presents with cardiorenal syndrome - Continue diuresis to euvolemia, edema 2/2 CKD IV - DMII control with basal/bolus insulin, advised on adherence to insulin as an outpatient. He has been nonadherent leading to elevated A1C - CKD management per nephrology Result Diagram: 03/06/18 0503/06/18 05 Results 24hrs Laboratory Tests Test 03/05/18 17:00 03/05/18 21:03 03/06/18 05:27 03/06/18 08:15 Bedside Glucose 202 121 163 White Blood Count 8.4 Red Blood Count 4.81 Hemoglobin 13.3 L Hematocrit 40.2 L Mean Corpuscular 83.6 Volume Mean Corpuscular 27.7 L Hemoglobin Mean Corpuscular 33.1 Hemoglobin Concent Red Cell 13.0 Distribution Width Platelet Count 247 Mean Platelet Volume 10.7 H Immature 0.100 Granulocytes % Neutrophils % 66.3 Lymphocytes % 15.1 Monocytes % 12.7 H Eosinophils % 5.0 Basophils % 0.8 Nucleated Red Blood 0.0 Cells % Immature 0.010 Granulocytes # Neutrophils # 5.5 Lymphocytes # 1.3 Monocytes # 1.1 H Eosinophils # 0.4 Basophils # 0.1 Nucleated Red Blood 0.0 Cells # Sodium Level 137 Potassium Level 3.5 Chloride Level 98 Carbon Dioxide Level 30 Anion Gap 9 Blood Urea Nitrogen 56 H Creatinine 2.94 H Est Glomerular Filtrat Rate mL/min Glucose Level 106 Uric Acid 10.7 H Calcium Level 9.2 Phosphorus Level 3.9 Total Bilirubin 0.5 Direct Bilirubin 0.00 Indirect Bilirubin 0.5 Aspartate Amino 17 Transf (AST/SGOT) Alanine 20 Aminotransferase (AL T/SGPT) Alkaline Phosphatase 89 Total Protein 6.3 Albumin 3.4 Globulin 2.90 Albumin/Globulin 1.17 Ratio Test 03/06/18 11:57 Bedside Glucose 172 Subjective 24 Hr Interval Summary Free Text/Dictation Diuresing well Still a bit hypervolemic Discussed DMII management at length Exam/Review of Systems Vital Signs Vitals Vital Signs Date Temp Pulse Resp B/P (MAP) Pulse Ox O2 O2 Flow FiO2 Time Delivery Rate 03/06/18 75 12:00 03/06/18 97.6 18 147/79 98 Room Air 11:16 (101) 03/06/18 21 08:52 03/06/18 2.0 08:05 Intake and Output 03/05/18 03/05/18 03/06/18 1515:00 23:00 07:00 IntakeIntake Total 900 ml 450 ml OutputOutput Total 2000 ml 550 ml BalanceBalance -1100 ml -100 ml Exam + JVD and HJR Resting comfortably Medications Medications Current Medications IV Flush (NS 3 ml) 3 ml PER PROTOCOL IV ; Start 03/04/18 at 13:00 Lorazepam (Ativan) 0.5 mg Q8H PRN PO ANXIETY; Start 03/04/18 at 13:00 Acetaminophen (Tylenol Tab) 650 mg Q6H PRN PO PAIN LEVEL 1-3 OR FEVER; Start 03/04/18 at 13:00 Acetaminophen/ Hydrocodone Bitart ([place] (5/325)) 1 tab Q6H PRN PO PAIN LEVEL 4-6; Start 03/04/18 at 13:00 Morphine Sulfate (morphine) 2 mg Q4H PRN IV PAIN LEVEL 7-10; Start 03/04/18 at 13:00 Diagnostic Test (Pha) (Accu-Chek) 1 ea 02 XX ; Start 03/05/18 at 02:00 Insulin Glargine (Lantus) 20 units DAILY@2000 SC Last administered on 03/05/18at 21:13; Admin Dose 20 UNITS; Start 03/04/18 at 20:00 Insulin Aspart (Novolog Insulin Pen) 7 unit WITH MEALS SC Last administered on 03/06/18at 12:04; Admin Dose 7 UNIT; Start 03/04/18 at 18:00 Insulin Aspart (Novolog Insulin Pen) NOVOLOG *MILD* ALGORITHM WITH MEALS BEDTIME SC Last administered on 03/06/18at 12:05; Admin Dose 1 UNIT; Start 03/04/18 at 18:00 Aspirin (Halfprin) 81 mg DAILY PO Last administered on 03/06/18at 08:30; Admin Dose 81 MG; Start 03/05/18 at 09:00 Atorvastatin Calcium (Lipitor) 40 mg QHS PO Last administered on 03/05/18 21:06; Admin Dose 40 MG; Start 03/04/18 at 21:00 Clopidogrel Bisulfate (plaVIX) 75 mg DAILY PO Last administered on 03/06/18 08:30; Admin Dose 75 MG; Start 03/05/18 at 09:00 Hydralazine HCl (Apresoline) 50 mg BID PO Last administered on 03/06/18 08:30; Admin Dose 50 MG; Start 03/04/18 at 21:00 Fish Oil (Fish Oil) 2,000 mg BID PO Last administered on 03/06/18 08:30; Admin Dose 2,000 MG; Start 03/04/18 at 21:00 Hydralazine HCl (Apresoline) 10 mg Q4H PRN IV sbp >160 Last administered on 03/05/18 19:57; Admin Dose 10 MG; Start 03/04/18 at 13:00 Levofloxacin/ Dextrose 100 ml @ 100 mls/hr Q48H IVPB Last administered on 03/04/18 15:46; Admin Dose 100 MLS/HR; Start 03/04/18 at 14:00 Albuterol/ Ipratropium (Duoneb) 3 ml Q6HWA RESP THERAPY HHN Last administered on 03/06/18 08:52; Admin Dose 3 ML; Start 03/04/18 at 14:00 Albuterol/ Ipratropium (Duoneb) 3 ml Q2H RESP THERAPY PRN HHN shortness of breath; Start 03/04/18 at 13:30 Pantoprazole (Protonix Tab) 40 mg DAILY@06 PO Last administered on 03/06/18 06:10; Admin Dose 40 MG; Start 03/05/18 at 06:00 Heparin Sodium (Porcine) (Heparin (5000 Units/1ml)) 5,000 unit Q8 SC Last administered on 03/06/18 06:30; Admin Dose 5,000 UNIT; Start 03/04/18 at 14:00 Furosemide (Lasix) 60 mg BID DIURETICS IV Last administered on 03/06/18 06:11; Admin Dose 60 MG; Start 03/04/18 at 18:00 Carvedilol (Coreg) 6.25 mg BID PO Last administered on 1/21/19at 08:30; Admin Dose 6.25 MG; Start 03/05/18 at 21:00 Magnesium Hydroxide (Milk Of Mag) 30 ml BID PO Last administered on 03/06/18at 08:29; Admin Dose 30 ML; Start 03/06/18 at 09:00 KELY BAUTISTA MD Mar 06, 2018 13:28
--- NOTE | 2018-03-06 16:10 | NUR ---
Nurse note pt had 14 beats of Vtach notified Dr. Rivera and Dr. Solorio no new orders pt states he feels okay, he is asymptomatic BP 147/62 HR 65
--- NOTE | 2018-03-06 17:10 | NUR ---
endorse to KAY Castro pt is stable
--- NOTE | 2018-03-06 17:19 | NUR ---
RN NOTES: Received report from KAY Ramos.
--- NOTE | 2018-03-06 18:06 | CONS ---
Date/Time of Note Date/Time of Note DATE: 03/06/18 TIME: 18:04 Assessment/Plan Assessment/Plan Assessment/Plan 72 yo with known CAD, cardiomyopathy with mildly reduced LVEF 45%, CKD stage 4 baseline cr around 3 liley due to chronic hypertensive nephrosclerosis, hypertension, chronic chf, presents acute decompensated chf/ athmatic bronchitis * acute decompensated CHF: improved with diuretics. cr higher today. reduce la six to daily * ckd4: cr higher today but close to baseline. cont to monitor renal function as we diurese * htn: bp fair control. coreg dose increased. monitor and add meds as needed. better * asthmatic bronchitis: on abx/ nebs * anemia: mild and stable * poorly controlled dm: hba1c 12. needs endo eval * hyperuricemia: start uloric and monitor Result Diagram: 03/06/1852603/06/18526 Results 24hrs Laboratory Tests Test 03/05/18 21:03 03/06/18 05:27 03/06/18 08:15 03/06/18 11:57 Bedside Glucose 121 163 172 White Blood Count 8.4 Red Blood Count 4.81 Hemoglobin 13.3 L Hematocrit 40.2 L Mean Corpuscular 83.6 Volume Mean Corpuscular 27.7 L Hemoglobin Mean Corpuscular 33.1 Hemoglobin Concent Red Cell 13.0 Distribution Width Platelet Count 247 Mean Platelet Volume 10.7 H Immature 0.100 Granulocytes % Neutrophils % 66.3 Lymphocytes % 15.1 Monocytes % 12.7 H Eosinophils % 5.0 Basophils % 0.8 Nucleated Red Blood 0.0 Cells % Immature 0.010 Granulocytes # Neutrophils # 5.5 Lymphocytes # 1.3 Monocytes # 1.1 H Eosinophils # 0.4 Basophils # 0.1 Nucleated Red Blood 0.0 Cells # Sodium Level 137 Potassium Level 3.5 Chloride Level 98 Carbon Dioxide Level 30 Anion Gap 9 Blood Urea Nitrogen 56 H Creatinine 2.94 H Est Glomerular Filtrat Rate mL/min Glucose Level 106 Uric Acid 10.7 H Calcium Level 9.2 Phosphorus Level 3.9 Total Bilirubin 0.5 Direct Bilirubin 0.00 Indirect Bilirubin 0.5 Aspartate Amino 17 Transf (AST/SGOT) Alanine 20 Aminotransferase (AL T/SGPT) Alkaline Phosphatase 89 Total Protein 6.3 Albumin 3.4 Globulin 2.90 Albumin/Globulin 1.17 Ratio Test 03/06/18 17:23 Bedside Glucose 194 Consultation Date/Type/Reason Admit Date/Time Mar 04, 2018 at 14:17 Initial Consult Date 03/04/18 Requesting Provider: ESTRADA TRACY 24 HR Interval Summary Free Text/Dictation better. less cough and sob Exam/Review of Systems Vital Signs Vitals Vital Signs Date Temp Pulse Resp B/P (MAP) Pulse Ox O2 O2 Flow FiO2 Time Delivery Rate 03/06/18 68 16:00 03/06/18 97.5 18 138/83 95 15:26 (101) 03/06/18 21 13:52 03/06/18 Room Air 11:16 03/06/18 2.0 08:05 Intake and Output 03/05/18 03/05/18 03/06/18 1515:00 23:00 07:00 IntakeIntake Total 900 ml 450 ml OutputOutput Total 2000 ml 550 ml BalanceBalance -1100 ml -100 ml Exam Constitutional: alert, oriented Psych: no complaints Head: normocephalic Neck: supple Respiratory: crackles/rales, diminished breath sounds Cardiovascular: edema Gastrointestinal: soft Medications Medications Current Medications IV Flush (NS 3 ml) 3 ml PER PROTOCOL IV ; Start 03/04/18 at 13:00 Lorazepam (Ativan) 0.5 mg Q8H PRN PO ANXIETY; Start 03/04/18 at 13:00 Acetaminophen (Tylenol Tab) 650 mg Q6H PRN PO PAIN LEVEL 1-3 OR FEVER; Start 03/04/18 at 13:00 Acetaminophen/ Hydrocodone Bitart ([place] (5/325)) 1 tab Q6H PRN PO PAIN LEVEL 4-6; Start 03/04/18 at 13:00 Morphine Sulfate (morphine) 2 mg Q4H PRN IV PAIN LEVEL 7-10; Start 03/04/18 at 13:00 Diagnostic Test (Pha) (Accu-Chek) 1 ea 02 XX ; Start 03/05/18 at 02:00 Insulin Glargine (Lantus) 20 units DAILY@2000 SC Last administered on 03/05/18at 21:13; Admin Dose 20 UNITS; Start 03/04/18 at 20:00 Insulin Aspart (Novolog Insulin Pen) 7 unit WITH MEALS SC Last administered on 03/06/18at 17:27; Admin Dose 7 UNIT; Start 03/04/18 at 18:00 Insulin Aspart (Novolog Insulin Pen) NOVOLOG *MILD* ALGORITHM WITH MEALS BEDTIME SC Last administered on 03/06/18 17:28; Admin Dose 2 UNIT; Start 03/04/18 at 18:00 Aspirin (Halfprin) 81 mg DAILY PO Last administered on 03/06/18 08:30; Admin Dose 81 MG; Start 03/05/18 at 09:00 Atorvastatin Calcium (Lipitor) 40 mg QHS PO Last administered on 03/05/18 21:06; Admin Dose 40 MG; Start 03/04/18 at 21:00 Clopidogrel Bisulfate (plaVIX) 75 mg DAILY PO Last administered on 03/06/18 08:30; Admin Dose 75 MG; Start 03/05/18 at 09:00 Hydralazine HCl (Apresoline) 50 mg BID PO Last administered on 03/06/18 08:30; Admin Dose 50 MG; Start 03/04/18 at 21:00 Fish Oil (Fish Oil) 2,000 mg BID PO Last administered on 03/06/18 08:30; Admin Dose 2,000 MG; Start 03/04/18 at 21:00 Hydralazine HCl (Apresoline) 10 mg Q4H PRN IV sbp >160 Last administered on 03/05/18 19:57; Admin Dose 10 MG; Start 03/04/18 at 13:00 Albuterol/ Ipratropium (Duoneb) 3 ml Q6HWA RESP THERAPY HHN Last administered on 03/06/18 13:51; Admin Dose 3 ML; Start 03/04/18 at 14:00 Albuterol/ Ipratropium (Duoneb) 3 ml Q2H RESP THERAPY PRN HHN shortness of breath; Start 03/04/18 at 13:30 Pantoprazole (Protonix Tab) 40 mg DAILY@06 PO Last administered on 03/06/18 06:10; Admin Dose 40 MG; Start 03/05/18 at 06:00 Heparin Sodium (Porcine) (Heparin (5000 Units/1ml)) 5,000 unit Q8 SC Last administered on 03/06/18 14:22; Admin Dose 5,000 UNIT; Start 03/04/18 at 14:00 Furosemide (Lasix) 60 mg BID DIURETICS IV Last administered on 1/21/19at 17: 40; Admin Dose 60 MG; Start 03/04/18 at 18:00 Carvedilol (Coreg) 6.25 mg BID PO Last administered on 03/06/18at 08:30; Admin Dose 6.25 MG; Start 03/05/18 at 21:00 Magnesium Hydroxide (Milk Of Mag) 30 ml BID PO Last administered on 03/06/18at 08:29; Admin Dose 30 ML; Start 03/06/18 at 09:00 Levofloxacin (Levaquin) 500 mg Q48H PO ; Start 03/08/18 at 13:00 OMAR TREJO MD Mar 06, 2018 18:06
[2018-03-06 18:35] LABS: PTH CALCIUM 9.2 mg/dL (8.6-10.3)
--- NOTE | 2018-03-06 19:30 | NUR ---
EOSS: Pt laying comfortably in bed, VS stable, no s/sx of distress. Endorsed plan of care to oncoming shift accordingly.
[2018-03-06] MEDS: FEBUXOSTAT 40 MG TABLET PO SCH (20:16)
[2018-03-06] MEDS: ATORVASTATIN 40 MG TAB PO SCH (20:20)
[2018-03-06] MEDS: INSULIN GLARGINE [LANTus] (100 UNITS/ML) SYG SC SCH (21:10)
[2018-03-07] VITALS (15 sets, daily range): BP systolic 119–163; BP diastolic 56–92; PULSE 52–89; RESP 18–20
[2018-03-07] MEDS: hydrALAzine 20 MG INJ IV PRN (01:00)
[2018-03-07] MEDS: ACCU-CHEK XX SCH (02:00)
[2018-03-07] MEDS: PANTOPRAZOLE (EC) 40 MG TAB PO SCH (06:09)
[2018-03-07] MEDS: HEPARIN 5,000 UNIT/1 ML VIAL SC SCH ×3 (06:16→22:00)
--- NOTE | 2018-03-07 06:39 | NUR ---
EOSS N: A&Ox4, Cypriot speaking only R: RA, HHN treatments CV: NSR, LBBB. EF 45%. Hydralazine PRN given x1 with good effect. Hx stent with ASA/PLAVIX, but currently on Heparin Q8HR. GI: ACHS (135, 99; no coverage needed). : Ambulates with cane, BMAT 3. Uses urinal as well. Hx gout, elevated uric acid, with accompanying BLE pain. POC: ACS has been ruled out. Troponins negative x3. Continuing broad spectrum IV abx for possible bronchitis/PNA overlying CHF exacerbation. Continue diuresing Lasix 60 MG IV. Decrease uric acid with Febuxostat (Last uRic acid 10.7). Otherwise labs are stable at the moment. Respiratory-stable at the moment on RA. All of patient's needs attended to. Bed in locked and low position. Will endorse to AM nurse.
--- NOTE | 2018-03-07 08:04 | CONS ---
Date/Time of Note Date/Time of Note DATE: 03/07/18 TIME: 07:58 Assessment/Plan Assessment/Plan Assessment/Plan 1. Known progressive chronic renal insuff with Scr 03/30-1.7, 04/30-2.15, and 04/03-3.02 with Acute renal failure (pre renal) sec to chf, with additional inc Scr sec to needed diuresis, without obstruction as revealed by present renal ultz and priort ct scan that revealed small kidneys. 2. CHF has clinically resolved, favor dc diuretics and resuming once Scr improves or clinical signs of recurrent chf/vol overload occurs. 3. Asthmatic bronchitis, improving. Result Diagram: 03/07/18 0456 03/07/18 0456 Results 24hrs Laboratory Tests Test 03/06/18 08:15 03/06/18 11:57 03/06/18 17:23 03/06/18 20:14 Bedside Glucose 163 172 194 135 Test 03/07/18 02:35 03/07/18 04:56 Bedside Glucose 99 White Blood Count 8.7 Red Blood Count 4.71 Hemoglobin 13.2 L Hematocrit 39.4 L Mean Corpuscular 83.7 Volume Mean Corpuscular 28.0 L Hemoglobin Mean Corpuscular 33.5 Hemoglobin Concent Red Cell 12.8 Distribution Width Platelet Count 241 Mean Platelet Volume 10.8 H Immature 0.200 Granulocytes % Neutrophils % 69.5 Lymphocytes % 12.0 L Monocytes % 12.6 H Eosinophils % 5.0 Basophils % 0.7 Nucleated Red Blood 0.0 Cells % Immature 0.020 Granulocytes # Neutrophils # 6.1 Lymphocytes # 1.1 Monocytes # 1.1 H Eosinophils # 0.4 Basophils # 0.1 Nucleated Red Blood 0.0 Cells # Sodium Level 137 Potassium Level 3.2 L Chloride Level 97 Carbon Dioxide Level 31 Anion Gap 9 Blood Urea Nitrogen 69 H Creatinine 3.41 H Est Glomerular Filtrat Rate mL/min Glucose Level 95 Uric Acid 11.1 H Calcium Level 9.2 Phosphorus Level 4.2 Total Bilirubin 0.4 Direct Bilirubin 0.00 Indirect Bilirubin 0.4 Aspartate Amino 19 Transf (AST/SGOT) Alanine 19 Aminotransferase (AL T/SGPT) Alkaline Phosphatase 86 Total Protein 6.2 Albumin 3.3 Globulin 2.90 Albumin/Globulin 1.13 Ratio Consultation Date/Type/Reason Admit Date/Time Mar 04, 2018 at 14:17 Initial Consult Date 03/04/18 Requesting Provider: ESTRADA TRACY Detailed Summary Respiratory: No cough, No shortness of breath Cardiovascular: No chest pain Gastrointestinal: no complaints Genitourinary: No dysuria, No hematuria Exam/Review of Systems Vital Signs Vitals Vital Signs Date Temp Pulse Resp B/P (MAP) Pulse Ox O2 O2 Flow FiO2 Time Delivery Rate 03/07/18 98.2 68 20 149/83 94 Room Air 07:24 (105) 03/07/18 21 01:02 03/06/18 2.0 08:05 Intake and Output 03/06/18 03/06/18 03/07/18 1515:00 23:00 07:00 IntakeIntake Total 1300 ml 700 ml OutputOutput Total 800 ml 925 ml BalanceBalance 500 ml -225 ml Exam Neck: No jvd Respiratory: clear to auscultation, diminished breath sounds Cardiovascular: regular rate and rhythm; No S3 Gastrointestinal: soft Extremities: No edema (extremities and sacrum) Medications Medications Current Medications IV Flush (NS 3 ml) 3 ml PER PROTOCOL IV ; Start 03/04/18 at 13:00 Lorazepam (Ativan) 0.5 mg Q8H PRN PO ANXIETY; Start 03/04/18 at 13:00 Acetaminophen (Tylenol Tab) 650 mg Q6H PRN PO PAIN LEVEL 1-3 OR FEVER; Start 03/04/18 at 13:00 Acetaminophen/ Hydrocodone Bitart ([place] (5/325)) 1 tab Q6H PRN PO PAIN LEVEL 4-6; Start 03/04/18 at 13:00 Morphine Sulfate (morphine) 2 mg Q4H PRN IV PAIN LEVEL 7-10; Start 03/04/18 at 13:00 Diagnostic Test (Pha) (Accu-Chek) 1 ea 02 XX Last administered on 03/07/18at 02:00; Admin Dose 1 EA; Start 03/05/18 at 02:00 Insulin Glargine (Lantus) 20 units DAILY@2000 SC Last administered on 03/06/18at 21:10; Admin Dose 20 UNITS; Start 03/04/18 at 20:00 Insulin Aspart (Novolog Insulin Pen) 7 unit WITH MEALS SC Last administered on 03/06/18at 17:27; Admin Dose 7 UNIT; Start 03/04/18 at 18:00 Insulin Aspart (Novolog Insulin Pen) NOVOLOG *MILD* ALGORITHM WITH MEALS BEDTIME SC Last administered on 03/06/18 17:28; Admin Dose 2 UNIT; Start 03/04/18 at 18:00 Aspirin (Halfprin) 81 mg DAILY PO Last administered on 03/06/18 08:30; Admin Dose 81 MG; Start 03/05/18 at 09:00 Atorvastatin Calcium (Lipitor) 40 mg QHS PO Last administered on 03/06/18 20:20; Admin Dose 40 MG; Start 03/04/18 at 21:00 Clopidogrel Bisulfate (plaVIX) 75 mg DAILY PO Last administered on 03/06/18 08:30; Admin Dose 75 MG; Start 03/05/18 at 09:00 Hydralazine HCl (Apresoline) 50 mg BID PO Last administered on 03/06/18 21:14; Admin Dose 50 MG; Start 03/04/18 at 21:00 Fish Oil (Fish Oil) 2,000 mg BID PO Last administered on 03/06/18 20:20; Admin Dose 2,000 MG; Start 03/04/18 at 21:00 Hydralazine HCl (Apresoline) 10 mg Q4H PRN IV sbp >160 Last administered on 03/07/18 01:00; Admin Dose 10 MG; Start 03/04/18 at 13:00 Albuterol/ Ipratropium (Duoneb) 3 ml Q6HWA RESP THERAPY HHN Last administered on 03/06/18 21:45; Admin Dose 3 ML; Start 03/04/18 at 14:00 Albuterol/ Ipratropium (Duoneb) 3 ml Q2H RESP THERAPY PRN HHN shortness of breath; Start 03/04/18 at 13:30 Pantoprazole (Protonix Tab) 40 mg DAILY@06 PO Last administered on 03/07/18 06:09; Admin Dose 40 MG; Start 03/05/18 at 06:00 Heparin Sodium (Porcine) (Heparin (5000 Units/1ml)) 5,000 unit Q8 SC Last administered on 03/07/18 06:16; Admin Dose 5,000 UNIT; Start 03/04/18 at 14:00 Carvedilol (Coreg) 6.25 mg BID PO Last administered on 1/21/19at 21:15; Admin Dose 6.25 MG; Start 03/05/18 at 21:00 Magnesium Hydroxide (Milk Of Mag) 30 ml BID PO Last administered on 03/06/18at 20:20; Admin Dose 30 ML; Start 03/06/18 at 09:00 Levofloxacin (Levaquin) 500 mg Q48H PO ; Start 03/08/18 at 13:00 Furosemide (Lasix) 60 mg DAILY IV ; Start 03/07/18 at 09:00 Febuxostat (Uloric) 40 mg DAILY PO Last administered on 03/06/18at 20:16; Admin Dose 40 MG; Start 03/06/18 at 19:30 KRYSTINA BRIZUELA MD Mar 07, 2018 08:04
[2018-03-07] MEDS: MAGNESIUM HYDROXIDE 30ML CUP PO SCH ×2 (08:15→21:37)
[2018-03-07] MEDS: FEBUXOSTAT 40 MG TABLET PO SCH (08:15)
[2018-03-07] MEDS: FISH OIL 1,000 MG CAP PO SCH ×2 (08:15→21:37)
[2018-03-07] MEDS: ASPIRIN (EC) 81 MG TAB PO SCH (08:16)
[2018-03-07] MEDS: CLOPIDOGREL 75 MG TAB PO SCH (08:16)
[2018-03-07] MEDS: FUROSEMIDE 20 MG INJ IV SCH (08:17)
[2018-03-07] MEDS: INSULIN ASPART [NOVOLOG] 3 ML PEN SC SCH ×7 (08:32→21:00)
[2018-03-07] MEDS: ALBUTEROL/IPRATROPIUM (NEB) 3 ML AMP HHN SCH ×3 (09:12→20:19)
[2018-03-07] MEDS ORDERED: POTASSIUM CHLORIDE (SR) 20 MEQ TAB PO STA (10:13)
[2018-03-07] MEDS ORDERED: morphine LIQ (10 MG/5 ML) CUP PO PRN (10:30)
--- NOTE | 2018-03-07 12:48 | NUR ---
nurse note noted that there is a palpable thrill in the left arm near the wrist, notified Dr. Allen she is aware. she states it is okay to place a midline or an IV in the upper arm also reinforced that the left arm is swollen Dr. Allen said this is chronic
--- NOTE | 2018-03-07 13:37 | RADRPT ---
Echocardiogram Report Patient Name: CHESTER GRAHAM Gender: Male Date: 1945 Study Date: 05-Mar-2018 [employer] Inspector: Marni Amaro [facility] Location: [address] Ref. Physician: ESTRADA TRACY Quality: Adequate Procedures: Transthoracic echocardiogram with complete 2D, M-Mode, and doppler examination. Indications: Congestive Heart Failure. 2D/M Mode Doppler Measurement Value Normal Ranges Measurement Value Normal Ranges LVIDd 2D 5.4 3.5 - 5.6 cm AV Peak Thaddeus 1.8 m/sec LVIDs 2D 4.6 2.1 - 4.1 cm AV Peak PG 12.0 mmHg LVPWd 2D 1.3 0.6 - 1.1 cm LVOT Peak Thaddeus 0.7 m/sec IVSd 2D 1.1 0.6 - 1.1 cm LVOT Peak PG 2.0 mmHg AoR Diam 2D 2.9 2.0 - 3.7 cm MV E Peak Thaddeus 0.6 m/sec LA/Ao 2D 1 0 - 1 MV A Peak Thaddeus 0.7 m/sec LA Dimen 2D 4.3 2.3 - 4.0 cm MV E/A 0.8 MV Decel Time 208 msec Lat E` Thaddeus 0.1 m/sec Lateral E/E` 9.4 Med E` Thaddeus 0.0 m/sec MV E/A 0.8 PV Peak Thaddeus 1.2 m/sec PV Peak PG 6.0 mmHg Findings Left Ventricle: Normal left ventricular cavity size. Mild concentric left ventricular hypertrophy. Moderate global left ventricular systolic dysfunction. Ejection fraction is visually estimated at 30 %. Tissue Doppler/Mitral Doppler indices are consistent with impaired relaxation (Stage I diastolic dysfunction). Right Ventricle: Normal right ventricular size. Normal right ventricular systolic function. Left Atrium: The left atrium is normal in size. Right Atrium: The right atrium is normal in size. Mitral Valve: Normal appearance of the mitral valve. Mild mitral valve regurgitation. Aortic Valve: Normal appearance of the aortic valve. No aortic regurgitation. Tricuspid Valve: Normal appearance of the tricuspid valve. No evidence of tricuspid regurgitation. Pulmonic Valve: Normal pulmonic valve appearance. No evidence of pulmonic regurgitation. Pericardium: Small pericardial effusion. Aorta: Normal aortic root. IVC: Normal size and normal respiratory collapse consistent with normal right atrial pressure. Conclusions Normal left ventricular cavity size. Mild concentric left ventricular hypertrophy. Moderate global left ventricular systolic dysfunction. Ejection fraction is visually estimated at 30 %. Tissue Doppler/Mitral Doppler indices are consistent with impaired relaxation (Stage I diastolic dysfunction). Normal appearance of the mitral valve. Mild mitral valve regurgitation. Normal appearance of the tricuspid valve. No evidence of tricuspid regurgitation. Electronically Signed By: Antony Shanks 07-Mar-2018 13:35:58 -0800 Patient Name: CHESTER GRAHAM Study Date: 05-Mar-2018 [id number]
--- NOTE | 2018-03-07 15:33 | PN ---
Date/Time of Note Date/Time of Note DATE: 03/07/18 TIME: 15:25 Assessment/Plan VTE Prophylaxis Risk score (from Nsg)>0 risk: 3 SCD applied (from Nsg): Yes Pharmacological prophylaxis: heparin Lines/Catheters IV Catheter Type (from Nrsg): Peripheral IV Urinary Cath still in place: No Assessment/Plan Hospital Course 72 yo male with uncontrolled DMII presents with cardiorenal syndrome - Diuretics held with ABDI, now euvolemic. Will observe and if creatinine stable dc tomorrow - DMII control with basal/bolus insulin, advised on adherence to insulin as an outpatient. He has been nonadherent leading to elevated A1C - CKD management per nephrology Result Diagram: 03/07/18 0456 03/07/18 0456 Results 24hrs Laboratory Tests Test 03/06/18 17:23 03/06/18 20:14 03/07/18 02:35 03/07/18 04:56 Bedside Glucose 194 135 99 White Blood Count 8.7 Red Blood Count 4.71 Hemoglobin 13.2 L Hematocrit 39.4 L Mean Corpuscular 83.7 Volume Mean Corpuscular 28.0 L Hemoglobin Mean Corpuscular 33.5 Hemoglobin Concent Red Cell 12.8 Distribution Width Platelet Count 241 Mean Platelet Volume 10.8 H Immature 0.200 Granulocytes % Neutrophils % 69.5 Lymphocytes % 12.0 L Monocytes % 12.6 H Eosinophils % 5.0 Basophils % 0.7 Nucleated Red Blood 0.0 Cells % Immature 0.020 Granulocytes # Neutrophils # 6.1 Lymphocytes # 1.1 Monocytes # 1.1 H Eosinophils # 0.4 Basophils # 0.1 Nucleated Red Blood 0.0 Cells # Sodium Level 137 Potassium Level 3.2 L Chloride Level 97 Carbon Dioxide Level 31 Anion Gap 9 Blood Urea Nitrogen 69 H Creatinine 3.41 H Est Glomerular Filtrat Rate mL/min Glucose Level 95 Uric Acid 11.1 H Calcium Level 9.2 Phosphorus Level 4.2 Total Bilirubin 0.4 Direct Bilirubin 0.00 Indirect Bilirubin 0.4 Aspartate Amino 19 Transf (AST/SGOT) Alanine 19 Aminotransferase (AL T/SGPT) Alkaline Phosphatase 86 Total Protein 6.2 Albumin 3.3 Globulin 2.90 Albumin/Globulin 1.13 Ratio Test 03/07/18 07:59 03/07/18 12:18 Bedside Glucose 157 315 H Subjective 24 Hr Interval Summary Free Text/Dictation ABDI, diuretics held No complaints Exam/Review of Systems Vital Signs Vitals Vital Signs Date Temp Pulse Resp B/P (MAP) Pulse Ox O2 O2 Flow FiO2 Time Delivery Rate 03/07/18 98.6 68 18 133/92 92 Room Air 15:20 (106) 03/07/18 21 13:25 03/06/18 2.0 08:05 Intake and Output 03/06/18 03/06/18 03/07/18 1515:00 23:00 07:00 IntakeIntake Total 1300 ml 700 ml OutputOutput Total 800 ml 925 ml BalanceBalance 500 ml -225 ml Medications Medications Current Medications IV Flush (NS 3 ml) 3 ml PER PROTOCOL IV ; Start 03/04/18 at 13:00 Lorazepam (Ativan) 0.5 mg Q8H PRN PO ANXIETY; Start 03/04/18 at 13:00 Acetaminophen (Tylenol Tab) 650 mg Q6H PRN PO PAIN LEVEL 1-3 OR FEVER; Start 03/04/18 at 13:00 Acetaminophen/ Hydrocodone Bitart ([place] (5/325)) 1 tab Q6H PRN PO PAIN LEVEL 4-6; Start 03/04/18 at 13:00 Diagnostic Test (Pha) (Accu-Chek) 1 ea 02 XX Last administered on 03/07/18at 02:00; Admin Dose 1 EA; Start 03/05/18 at 02:00 Insulin Glargine (Lantus) 20 units DAILY@2000 SC Last administered on 03/06/18at 21:10; Admin Dose 20 UNITS; Start 03/04/18 at 20:00 Insulin Aspart (Novolog Insulin Pen) 7 unit WITH MEALS SC Last administered on 03/07/18at 12:24; Admin Dose 7 UNIT; Start 03/04/18 at 18:00 Insulin Aspart (Novolog Insulin Pen) NOVOLOG *MILD* ALGORITHM WITH MEALS BEDTIME SC Last administered on 03/07/18 12:24; Admin Dose 5 UNIT; Start 03/04/18 at 18:00 Aspirin (Halfprin) 81 mg DAILY PO Last administered on 03/07/18 08:16; Admin Dose 81 MG; Start 03/05/18 at 09:00 Atorvastatin Calcium (Lipitor) 40 mg QHS PO Last administered on 03/06/18at 20:20; Admin Dose 40 MG; Start 03/04/18 at 21:00 Clopidogrel Bisulfate (plaVIX) 75 mg DAILY PO Last administered on 03/07/18 08:16; Admin Dose 75 MG; Start 03/05/18 at 09:00 Hydralazine HCl (Apresoline) 50 mg BID PO Last administered on 03/07/18 08:16; Admin Dose 50 MG; Start 03/04/18 at 21:00 Fish Oil (Fish Oil) 2,000 mg BID PO Last administered on 03/07/18 08:15; Admin Dose 2,000 MG; Start 03/04/18 at 21:00 Hydralazine HCl (Apresoline) 10 mg Q4H PRN IV sbp >160 Last administered on 03/07/18 01:00; Admin Dose 10 MG; Start 03/04/18 at 13:00 Albuterol/ Ipratropium (Duoneb) 3 ml Q6HWA RESP THERAPY HHN Last administered on 03/07/18 13:25; Admin Dose 3 ML; Start 03/04/18 at 14:00 Albuterol/ Ipratropium (Duoneb) 3 ml Q2H RESP THERAPY PRN HHN shortness of breath; Start 03/04/18 at 13:30 Pantoprazole (Protonix Tab) 40 mg DAILY@06 PO Last administered on 03/07/18at 06:09; Admin Dose 40 MG; Start 03/05/18 at 06:00 Heparin Sodium (Porcine) (Heparin (5000 Units/1ml)) 5,000 unit Q8 SC Last administered on 03/07/18 15:00; Admin Dose 5,000 UNIT; Start 03/04/18 at 14:00 Carvedilol (Coreg) 6.25 mg BID PO Last administered on 03/07/18 08:16; Admin Dose 6.25 MG; Start 03/05/18 at 21:00 Magnesium Hydroxide (Milk Of Mag) 30 ml BID PO Last administered on 03/07/18 08:15; Admin Dose 30 ML; Start 03/06/18 at 09:00 Levofloxacin (Levaquin) 500 mg Q48H PO ; Start 03/08/18 at 13:00 Furosemide (Lasix) 60 mg DAILY IV Last administered on 03/07/18 08:17; Admin Dose 60 MG; Start 03/07/18 at 09:00 Febuxostat (Uloric) 40 mg DAILY PO Last administered on 03/07/18at 08:15; Admin Dose 40 MG; Start 03/06/18 at 19:30 Morphine Sulfate (morphine) 6 mg Q4H PRN PO PAIN LEVEL 7-10; Start 03/07/18 at 10:30 KELY BAUTISTA MD Mar 07, 2018 15:33
--- NOTE | 2018-03-07 18:31 | NUR ---
EOSS pt is alert and orientedx4, on room air, stable no new complaints hourly rounding done potassium replaced
[2018-03-07] MEDS: ATORVASTATIN 40 MG TAB PO SCH (21:37)
[2018-03-07] MEDS: INSULIN GLARGINE [LANTus] (100 UNITS/ML) SYG SC SCH (22:01)
[2018-03-08] VITALS: PULSE 80
[2018-03-08] MEDS: ACCU-CHEK XX SCH (02:20)
[2018-03-08 03:40] VITALS: BP 140/73; PULSE 71; RESP 18
[2018-03-08 04:00] VITALS: PULSE 70
[2018-03-08] MEDS: PANTOPRAZOLE (EC) 40 MG TAB PO SCH (05:20)
[2018-03-08] MEDS: HEPARIN 5,000 UNIT/1 ML VIAL SC SCH (05:44)
--- NOTE | 2018-03-08 06:42 | NUR ---
EOSS N: Bilateral knee pain 08/23, [place] given x1 with good effect. Otherwise neuro unremarkable. CV: NSR 1st degree block, EF 45%. BP wnl throughout shift. No chest pain/tightness throughout shift. Trops neg x3 R: RA, no sob or dyspnea, saturating well. Continued HHN GI/: Unremarkable POC: PO levofloxacin, diuresing via lasix; probable DC today if Cr is stable (last value: 3.41)
[2018-03-08 07:30] VITALS: BP 131/71; PULSE 66; RESP 18
[2018-03-08] MEDS: INSULIN ASPART [NOVOLOG] 3 ML PEN SC SCH ×4 (07:50→11:51)
[2018-03-08] MEDS: ALBUTEROL/IPRATROPIUM (NEB) 3 ML AMP HHN SCH (07:58)
[2018-03-08] MEDS: FISH OIL 1,000 MG CAP PO SCH (08:21)
[2018-03-08] MEDS: FEBUXOSTAT 40 MG TABLET PO SCH (08:22)
[2018-03-08] MEDS: ASPIRIN (EC) 81 MG TAB PO SCH (08:22)
[2018-03-08] MEDS: MAGNESIUM HYDROXIDE 30ML CUP PO SCH (08:22)
[2018-03-08] MEDS: CLOPIDOGREL 75 MG TAB PO SCH (08:22)
[2018-03-08] MEDS: FUROSEMIDE 20 MG INJ IV SCH (08:23)
[2018-03-08 08:33] VITALS: PULSE 69
--- NOTE | 2018-03-08 08:35 | CONS ---
Assessment/Plan Assessment/Plan Assessment/Plan 1. CKD with acute renal failure, stable 2. Has remained on diuretics. Could dc on Lasix 40 mg/d as salt intake post dc will inc 3. CHF/Vol overload has resolved Consultation Date/Type/Reason Admit Date/Time Mar 04, 2018 at 14:17 Type of Consult Nephrology Date/Time of Note DATE: 03/08/18 TIME: 08:33 Respiratory: No cough, No shortness of breath Cardiovascular: No chest pain Gastrointestinal: no complaints Genitourinary: no complaints Exam/Review of Systems Vital Signs Vitals Vital Signs Date Temp Pulse Resp B/P (MAP) Pulse Ox O2 O2 Flow FiO2 Time Delivery Rate 03/08/18 64 22 94 21 07:58 03/08/18 98.0 131/71 Room Air 07:30 (91) 03/06/18 2.0 08:05 Intake and Output 03/07/18 03/07/18 03/08/18 1515:00 23:00 07:00 IntakeIntake Total 600 ml 750 ml OutputOutput Total 800 ml BalanceBalance 600 ml -50 ml Exam Neck: No jvd Respiratory: clear to auscultation Cardiovascular: regular rate and rhythm Gastrointestinal: soft Extremities: No edema (extrem and sacrum) Labs Result Diagram: 03/08/18 0524 03/08/18 0524 Results 24hrs Laboratory Tests Test 03/07/18 12:18 03/07/18 16:30 03/07/18 17:35 03/07/18 21:32 Bedside Glucose 315 H 161 137 Urine Random 51.03 Creatinine Urine 3.35 Protein/Creatinine Ratio Urine Total Protein 171.0 H Test 03/08/18 02:20 03/08/18 05:24 03/08/18 07:45 Bedside Glucose 88 143 White Blood Count 9.0 Red Blood Count 4.71 Hemoglobin 13.0 L Hematocrit 40.0 L Mean Corpuscular 84.9 Volume Mean Corpuscular 27.6 L Hemoglobin Mean Corpuscular 32.5 Hemoglobin Concent Red Cell 12.8 Distribution Width Platelet Count 239 Mean Platelet Volume 11.0 H Immature 0.300 Granulocytes % Neutrophils % 72.1 Lymphocytes % 9.8 L Monocytes % 12.9 H Eosinophils % 4.3 Basophils % 0.6 Nucleated Red Blood 0.0 Cells % Immature 0.030 Granulocytes # Neutrophils # 6.5 Lymphocytes # 0.9 Monocytes # 1.2 H Eosinophils # 0.4 Basophils # 0.1 Nucleated Red Blood 0.0 Cells # Sodium Level 141 Potassium Level 3.9 Chloride Level 98 Carbon Dioxide Level 31 Anion Gap 12 Blood Urea Nitrogen 70 H Creatinine 3.45 H Est Glomerular Filtrat Rate mL/min Glucose Level 79 Calcium Level 9.2 Phosphorus Level 3.4 Magnesium Level 2.9 H KRYSTINA BRIZUELA MD Mar 08, 2018 08:35
[2018-03-08] MEDS ORDERED: FURO-109 PO (09:47)
--- NOTE | 2018-03-08 10:01 | PDOCDIS ---
Discharge Instructions DIAGNOSIS Discharge Diagnosis CKD IV CONDITION [id number] Patient Condition: [id number] Stable FOLLOW UP/APPOINTMENTS Follow-up Plan Take your diuretic medication (lasix/furosemide) everyday. This will increase the amount of urine you make to prevent fluid accumulation in your body Make an appointment to see your primary doctor in the next 1-2 weeks. It is extremely important you take your insulin as prescribed by your doctor as your diabetes is causing your kidneys to fail Also make an appointment to see a kidney specialist as soon as possible KELY BAUTISTA MD Mar 08, 2018 10:01
[2018-03-08 11:30] VITALS: BP 139/79; PULSE 69; RESP 20
--- NOTE | 2018-03-08 12:18 | DS ---
Date/Time of Note Date/Time of Note DATE: 03/08/18 TIME: 12:16 Discharge Summary Admission/Discharge Info Admit Date/Time Mar 04, 2018 at 14:17 Discharge Date/Time Discharge Diagnosis CKD IV Patient Condition: Stable Hospital Course 72 yo male with uncontrolled DMII presents with SOB 2/2 pulmonary edema. He was found to have advanced CKD and uncontrolled diabetes. TTE showed EF 45%. He was given IV diuretics and over the coming days his edema resolved. He was discharged on 40 mg PO lasix and encouraged to follow up with nephrology as an outpatinet. He was also found to have A1C of 12% and admitted to nonadherence to insulin. He has a primary care doctor who manages his insulin. The patient says he has an insulin supply at home and did not want more. I encouraged him to take his insulin as prescribed and make an appointment to see his primary doctor in 1 week. Home Meds Active Scripts Furosemide* (Lasix*) 40 Mg Tablet, 40 MG PO DAILY for 60 Days, #60 TAB 4 Refills Prov:KELY BAUTISTA MD 03/08/18 [place]-3/Dha/Epa/Fish Oil (FISH OIL EC 1,000 MG SOFTGEL) 1 Each Capsule., 2000 MG PO BID, #30 CAP Prov:JAD SHIN 03/03/17 Clopidogrel Bisulfate (Clopidogrel) 75 Mg Tablet, 75 MG PO DAILY, #30 TAB Prov:JAD SHIN 03/03/17 Reported Medications Hydralazine Hcl* (Hydralazine Hcl*) 50 Mg Tab, 50 MG PO BID, #120 TAB 03/04/18 Aspirin* (Aspirin* EC) 81 Mg Tablet., 81 MG PO DAILY, TAB 03/04/18 Carvedilol* (Coreg*) 3.125 Mg Tablet, 3.125 MG PO BID, #60 TAB 03/04/18 Liraglutide (Victoza 3-Donnie) 0.6 Mg/0.1 Ml Pen.injctr, 1.8 MG SQ QAM, SYR 03/04/18 Insulin Glargine,Hum.rec.anlog (Chhaya Solostalan) 300 Unit/1 Ml Insuln.pen, 40 UNIT SQ QPM, EA 03/04/18 Atorvastatin* (Atorvastatin*) 40 Mg Tablet, 40 MG PO QHS, #30 TAB 03/04/18 Omeprazole* (Omeprazole*) 20 Mg Capsule.dr, 20 MG PO DAILY, #30 CAP 02/18/17 Discontinued Reported Medications Topiramate (Topiramate ER) 200 Mg Cap.spr.24, 200 MG PO 02/26/17 Febuxostat* (Uloric*) 40 Mg Tablet, 40 MG PO DAILY, TAB 02/18/17 Atorvastatin Calcium* (Atorvastatin Calcium*) 20 Mg Tablet, 20 MG PO QHS, #30 TAB 09/07/16 Tramadol Hcl* (Ultram*) 50 Mg Tablet, 50 MG PO BID PRN for PAIN, TAB 09/07/16 Discontinued Scripts Levofloxacin* (Levaquin*) 500 Mg Tablet, 500 MG PO Q48H, #5 TAB Renally dosed. Prov:DALLIN ADAMS FIELD COLLECTOR 03/22/17 Isosorbide Dinitrate* (Isosorbide Dinitrate*) 20 Mg Tablet, 20 MG PO TID, #90 TAB Prov:JAD SHIN 03/19/17 Liraglutide (Victoza 2-Donnie) 0.6 Mg/0.1 Ml Pen.injctr, 1.2 MG SQ DAILY for 30 Days, SYR Prov:DALLIN ADAMS FIELD COLLECTOR 03/08/17 Insulin Aspart* (Novolog Insulin Pen*) 100 Unit/Ml Soln, 10 UNIT SC WITH MEALS for 30 Days Prov:JAD SHIN 03/06/17 Insulin Glargine* (Lantus*) 100 Unit/Ml Soln, 30 UNIT SC DAILY@08 for 30 Days Prov:JAD SHIN 03/06/17 Hydralazine Hcl* (Apresoline*) 50 Mg Tab, 50 MG PO Q8, #90 TAB Prov:JAD SHIN 03/03/17 Carvedilol* (Carvedilol*) 12.5 Mg Tablet, 12.5 MG PO BID, #60 TAB Prov:JAD SHIN 03/03/17 Aspirin (Aspirin) 81 Mg Chew, 81 MG PO DAILY, #30 TAB Prov:JAD SHIN 03/03/17 Amlodipine Besylate* (Amlodipine Besylate*) 10 Mg Tablet, 10 MG PO DAILY, #30 TAB Prov:JAD SHIN 03/03/17 Follow-up Plan Take your diuretic medication (lasix/furosemide) everyday. This will increase the amount of urine you make to prevent fluid accumulation in your body Make an appointment to see your primary doctor in the next 1-2 weeks. It is extremely important you take your insulin as prescribed by your doctor as your diabetes is causing your kidneys to fail Also make an appointment to see a kidney specialist as soon as possible Primary Care Provider Not On Staff Doctor Pending Labs Laboratory Tests Test 03/07/18 12:18 03/07/18 16:30 03/07/18 17:35 03/07/18 21:32 Bedside 315 161 137 Glucose mg/dL (70-220) mg/dL (70-220) mg/dL (70-220) Urine Random 51.03 Creatinine mg/dl (20-370) Urine 3.35 RATIO Protein/Creatin ine Ratio Urine Total 171.0 Protein mg/dl (0.0-11. 9) Test 03/08/18 02:20 03/08/18 05:24 03/08/18 07:45 03/08/18 11:44 Bedside 88 143 229 Glucose mg/dL (70-220) mg/dL (70-220) mg/dL (70-220) White Blood 9.0 Count 10^3/ul (4.8-1 0.8) Red Blood 4.71 Count 10^6/ul (4.70- 6.10) Hemoglobin 13.0 g/dl (14.0-18. 0) Hematocrit 40.0 % (42.0-52.0) Mean 84.9 Corpuscular fl (82.0-101.0 Volume ) Mean 27.6 Corpuscular pg (29.0-33.0) Hemoglobin Mean 32.5 Corpuscular g/dl (32.0-37. Hemoglobin Conc 0) ent Red Cell 12.8 Distribution % (11.5-14.5) Width Platelet Count 239 10^3/UL (140-4 15) Mean Platelet 11.0 Volume fl (7.4-10.4) Immature 0.300 Granulocytes % % (0.001-0.429 ) Neutrophils % 72.1 % (39.0-77.0) Lymphocytes % 9.8 % (15.0-51.0) Monocytes % 12.9 % (0.0-11.0) Eosinophils % 4.3 % (0.0-7.0) Basophils % 0.6 % (0.0-2.0) Nucleated Red 0.0 Blood Cells % /100WBC (0.0-0 .0) Immature 0.030 Granulocytes # 10^3/ul (0.0-0 .031) Neutrophils # 6.5 10^3/ul (1.6-7 .5) Lymphocytes # 0.9 10^3/ul (0.8-2 .9) Monocytes # 1.2 10^3/ul (0.3-0 .9) Eosinophils # 0.4 10^3/ul (0.0-0 .5) Basophils # 0.1 10^3/ul (0.0-0 .1) Nucleated Red 0.0 Blood Cells # 10^3/ul (0.0-0 .0) Sodium Level 141 mmol/L (135-14 4) Potassium 3.9 Level mmol/L (3.5-5. 1) Chloride Level 98 mmol/L (97-110 ) Carbon Dioxide 31 Level mmol/L (21-31) Anion Gap 12 (5-13) Blood Urea 70 Nitrogen mg/dl (7-20) Creatinine 3.45 mg/dl (0.61-1. 24) Est Glomerular mL/min (>60) Filtrat Rate mL/min Glucose Level 79 mg/dl (70-220) Calcium Level 9.2 mg/dl (8.4-10. 2) Phosphorus 3.4 Level mg/dl (2.5-4.9 ) Magnesium 2.9 Level mg/dl (1.7-2.5 ) KELY BAUTISTA MD Mar 08, 2018 12:18
[2018-03-08] MEDS ORDERED: LEVOFLOXACIN 500 MG TAB PO SCH (13:00)
== END 2018-03-08 12:30 | disposition home or self-care (01) | DRG 291 ==
LOC: E/R 09:32 → 6WM 14:17
PROVIDERS: ADMIT Internal Medicine; ATTEND Internal Medicine
DX: I13.0 Hypertensive heart and chronic kidney disease with heart failure and stage 1 through stage 4 chronic kidney disease, or unspecified chronic kidney disease (principal); J18.9 Pneumonia, unspecified organism; I50.43 Acute on chronic combined systolic (congestive) and diastolic (congestive) heart failure; N18.4 Chronic kidney disease, stage 4 (severe); E11.22 Type 2 diabetes mellitus with diabetic chronic kidney disease; E11.65 Type 2 diabetes mellitus with hyperglycemia; I16.0 Hypertensive urgency; R06.03 Acute respiratory distress; Z91.14 Patient's other noncompliance with medication regimen
CPT/HCPCS: 36415; 71045; 76775; 80048; 80053; 80061; 81001; 81003; 82570; 82962; 83036; 83735; 83880; 83970; 84100; 84443; 84484; 84560; 85025; 85610; 85730; 93005; 93306; 94640; 94664; 96374; J0360; J1644; J1815; J1940; J1956

== ENCOUNTER 2018-03-20 14:25 | Inpatient (IN) | payer OTHER, MEDICAID ==
[~2018-03-20] VITALS: Ht 167.6 cm; Wt 78.0 kg
[~2018-03-20 14:25] MED LIST changes: -AMLO-147 PO; +ASPI-817 PO; -ASPI-831 PO; -ATOR20TA38 PO; +ATOR40TA68 PO; -CARV12.579 PO; +CARV3.12 PO; -FEBU40TA PO; +FURO-109 PO; +INSU300I SQ; -ISOS20TA19 PO; -LANT3I SC; -LEVO500T48 PO; -LIRA0.6P SQ; +LIRA0.6P2 SQ; -NOVO3I SC; -TOPI200C5 PO; -TRAM50TA PO
[2018-03-20 14:31] VITALS: Ht 167.6 cm; Wt 78.0 kg
--- NOTE | 2018-03-20 15:49 | ERD ---
ER Documentation Chief Complaint Chief Complaint SOB HPI The patient is a 72-year-old male, presenting to the ER because of acute dyspnea for the last 2 days with intermittent sternal chest pressure/ pain. He denies any chest pain now but complains of worsening dyspnea, complains of intermittent dry cough, denies fever, chills, neck pain, chest pain with vomiting/radiation/diaphoresis. He does not smoke nor drink Past medical history: Hypertension, diabetes mellitus, hyperlipidemia, CAD, chronic kidney disease, history of CHF, EF of 44% Past surgical history: Prostatectomy due to prostate cancer ROS All systems reviewed and are negative except as per history of present illness. Medications Home Meds Active Scripts Furosemide* (Lasix*) 40 Mg Tablet, 40 MG PO DAILY for 60 Days, #60 TAB 4 Refills Prov:KELY BAUTISTA MD 03/08/18 [place]-3/Dha/Epa/Fish Oil (FISH OIL EC 1,000 MG SOFTGEL) 1 Each Capsule., 2000 MG PO BID, #30 CAP Prov:JAD SHIN 03/03/17 Clopidogrel Bisulfate (Clopidogrel) 75 Mg Tablet, 75 MG PO DAILY, #30 TAB Prov:JAD SHIN 03/03/17 Reported Medications Isosorbide Mononitrate* (Isosorbide Mononitrate*) 30 Mg Tab.er.24h, 30 MG PO DAILY, TAB 03/20/18 Clopidogrel Bisulfate (Clopidogrel) 75 Mg Tablet, 75 MG PO DAILY, #30 TAB 03/20/18 Febuxostat* (Uloric*) 80 Mg Tablet, 80 MG PO DAILY, TAB 03/20/18 Furosemide* (Furosemide*) 40 Mg Tablet, 40 MG PO DAILY, TAB 03/20/18 Hydralazine Hcl* (Hydralazine Hcl*) 50 Mg Tab, 50 MG PO BID, #120 TAB 03/04/18 Aspirin* (Aspirin* EC) 81 Mg Tablet., 81 MG PO DAILY, TAB 03/04/18 Liraglutide (Victoza 3-Donnie) 0.6 Mg/0.1 Ml Pen.injctr, 1.8 MG SQ QAM, SYR 03/04/18 Insulin Glargine,Hum.rec.anlog (Chhaya Boswell) 300 Unit/1 Ml Insuln.pen, 40 UNIT SQ QPM, EA 03/04/18 Atorvastatin* (Atorvastatin*) 40 Mg Tablet, 40 MG PO QHS, #30 TAB 03/04/18 Omeprazole* (Omeprazole*) 20 Mg Capsule.dr, 20 MG PO DAILY, #30 CAP 02/18/17 Discontinued Reported Medications Carvedilol* (Coreg*) 3.125 Mg Tablet, 3.125 MG PO BID, #60 TAB 03/04/18 Allergies Allergies: Coded Allergies: Penicillins (Verified Allergy, Mild, 03/20/18) PMhx/Soc History of Surgery: No Anesthesia Reaction: No Hx Neurological Disorder: No Hx Respiratory Disorders: Yes (PNA ) Hx Cardiac Disorders: Yes (HTN , CAD) Hx Psychiatric Problems: No Hx Miscellaneous Medical Probl: No Hx Alcohol Use: Yes (22 years ago quit) Hx Substance Use: No Hx Tobacco Use: No Physical Exam Vitals Vital Signs Date Temp Pulse Resp B/P (MAP) Pulse Ox O2 O2 Flow FiO2 Time Delivery Rate 03/20/18 98.9 80 20 166/91 96 14:31 (116) Physical Exam Const: No acute distress. Head: Atraumatic. Eyes: Normal Conjunctiva. ENT: Normal External Ears, Nose and Mouth. Neck: Full range of motion. No meningismus. Resp: Bibasilar crackle. Cardio: Bibasilar crackle. Abd: Soft, non distended, normal bowel sounds, non tender. Skin: No petechiae or rashes. Back: No midline or flank tenderness. Ext: No cyanosis, or edema. Neur: Awake and alert. No focal deficit Psych: Normal Mood and Affect. Result Diagram: 03/20/18 1620 03/20/18 1620 Results 24 hrs Laboratory Tests Test 03/20/18 15:49 03/20/18 16:20 POC Venous Lactate 1.6 mmol/L White Blood Count 10.5 10^3/ul Red Blood Count 4.31 10^6/ul Hemoglobin 11.9 g/dl Hematocrit 36.7 % Mean Corpuscular Volume 85.2 fl Mean Corpuscular Hemoglobin 27.6 pg Mean Corpuscular Hemoglobin Concent 32.4 g/dl Red Cell Distribution Width 13.0 % Platelet Count 224 10^3/UL Mean Platelet Volume 11.2 fl Immature Granulocytes % 0.500 % Neutrophils % 79.2 % Lymphocytes % 5.5 % Monocytes % 10.3 % Eosinophils % 4.1 % Basophils % 0.4 % Nucleated Red Blood Cells % 0.0 /100WBC Immature Granulocytes # 0.050 10^3/ul Neutrophils # 8.3 10^3/ul Lymphocytes # 0.6 10^3/ul Monocytes # 1.1 10^3/ul Eosinophils # 0.4 10^3/ul Basophils # 0.0 10^3/ul Nucleated Red Blood Cells # 0.0 10^3/ul Prothrombin Time 12.9 Sec Prothrombin Time Ratio 1.0 INR International Normalized Ratio 0.96 Activated Partial Thromboplast Time 30.3 Sec Sodium Level 138 mmol/L Potassium Level 3.4 mmol/L Chloride Level 100 mmol/L Carbon Dioxide Level 25 mmol/L Anion Gap 13 Blood Urea Nitrogen 48 mg/dl Creatinine 2.93 mg/dl Est Glomerular Filtrat Rate mL/min mL/min Glucose Level 245 mg/dl Calcium Level 9.1 mg/dl Troponin I 0.092 ng/ml B-Type Natriuretic Peptide 92499 PG/ML Current Medications Medications Dose Sig/Monty Start Time Status Last (Trade) Ordered Route PRN Stop Time Admin Dose Reason Admin Aspirin 162 mg ONCE STAT 03/20/18 DC 03/20/18 (Aspirin) PO 16:22 03/20/18 16:35 16:24 1 inch ONCE STAT 03/20/18 DC 03/20/18 Nitroglycerin TD 16:22 03/20/18 16:36 16:24 (Nitroglyceri n 2% Oint) Furosemide 80 mg ONCE ONCE 03/20/18 DC 03/20/18 (Lasix) IV 18:00 03/20/18 18:02 18:01 Aspirin 81 mg DAILY PO 03/21/18 (Halfprin) 09:00 40 mg QHS PO 03/20/18 Atorvastatin 21:00 Calcium (Lipitor) Clopidogrel 75 mg DAILY PO 03/21/18 Bisulfate 09:00 (plaVIX) Febuxostat 80 mg DAILY PO 03/21/18 (Uloric) 09:00 Hydralazine 50 mg BID PO 03/20/18 HCl 21:00 (Apresoline) Isosorbide 30 mg DAILY PO 03/21/18 Mononitrate 09:00 (Imdur) Fish Oil 2,000 mg BID PO 03/20/18 (Fish Oil) 21:00 IV Flush 3 ml PER 2/4/19 (NS 3 ml) PROTOCOL IV 19:30 40 mg DAILY@03/21/18 Pantoprazole PO 06:00 (Protonix Tab) Enoxaparin 40 mg DAILY SC 03/21/18 UNV Sodium 09:00 (Lovenox) Diagnostic 1 ea 02 XX 03/21/18 Test (Pha) 02:00 (Accu-Chek) Insulin 40 units DAILY@199903/20/18 Glargine SC 20:00 (Lantus) ONCE ONCE 03/20/18 DC Miscellaneous HYPOGLYCEMIA XX 19:30 03/20/18 PROTOCOL 19:35 Information w... (* Miscellaneous Pharmacy Order) Insulin NOVOLOG WITH MEALS 03/20/18 Aspart *MODERATE* BEDTIME SC 21:00 (Novolog ALGORITHM Insulin Pen) Bumetanide 1 mg BID 03/20/18 (Bumex) DIURETICS 19:30 IV 1 ea NOTE XX 03/20/18 Miscellaneous 20:00 Information Glucose 15 gm Q15M PRN 03/20/18 (Glutose) PO DECREASED 20:00 GLUCOSE Glucose 22.5 gm Q15M PRN 03/20/18 (Glutose) PO DECREASED 20:00 GLUCOSE Dextrose 25 ml Q15M PRN 03/20/18 (D50w IV DECREASED 20:00 Syringe) GLUCOSE Dextrose 50 ml Q15M PRN 03/20/18 (D50w IV DECREASED 20:00 Syringe) GLUCOSE Glucagon 1 mg Q15M PRN 03/20/18 (Glucagen) IM DECREASED 20:00 GLUCOSE Glucose 15 gm Q15M PRN 03/20/18 (Glutose) BUCCAL 20:00 DECREASED GLUCOSE Procedures/MDM EKG: Read by emergency physician Rate/Rhythm: Normal Sinus Rhythm 77 beats/min QRS, ST, T-waves: No ST elevation, no T inversion, LBBB, PVC Impression: Abnormal EKG [place] [id number] Radiology Main Line: [phone] DIAGNOSTIC IMAGING REPORT Patient: CHESTER GRAHAM : 1945 Age: 72 Sex: M MR #: [id number] DOS: 03/20/18 1622 Ordering MD: JIMY DE LA ROSA MD Location: E/R Room/Bed: PROCEDURE: XR Chest AP portable CLINICAL INDICATION: Chest pain TECHNIQUE: An AP portable radiograph of the chest was submitted. COMPARISON: 03/04/2018 FINDINGS: Support Hardware: None Cardiovascular: The heart remains moderately enlarged and the pulmonary vasculature appears upper normal. The aorta appears mildly tortuous. Lung Jasmine: Coarse interstitial infiltrates are again seen at the lung bases bilaterally. Pleural Spaces: No pneumothorax or pleural effusion is identified. Osseous Structures: Mild degenerative enthesopathy of the thoracic spine is again noted. Soft Tissues: The soft tissues appear unremarkable. IMPRESSION: 1. Moderate cardiomegaly with the pulmonary vasculature upper normal and the a krista is somewhat tortuous, unchanged. 2. Bibasilar interstitial infiltrates, unchanged which likely represent chronic interstitial scarring. This has progressed from a much earlier study dated 01/26/2014. No effusion or pneumothorax is evident. 3. Mild diffuse degenerative enthesopathy of the thoracic spine, unchanged. Physician Michelet Date Time Electronically viewed and signed by Heath Nguyen Physician on 03/20/2018 16:49 RH/ CC: JIMY DE LA ROSA MD [id number] MEDICAL MAKING DECISION: The patient is a 72-year-old male, presenting with acute CHF exacerbation, acute chest pain, acute hypokalemia. He was treated with aspirin 162 mg p.o., 1 inch of nitroglycerin ointment to the chest wall for acute chest pain, Lasix 80 mg IV for acute CHF exacerbation with good response. The differential diagnoses considered include but are not limited to ACS, asthma, COPD, pneumonia, pulmonary embolus, pleural effusion, congestive heart failure. Departure Diagnosis: Primary Impression: CHF (congestive heart failure) Additional Impressions: Chest pain Hypokalemia Anemia Condition: Stable Comments I discussed the findings with the patient. I discussed the patient with the hospitalist Dr Russell at 6:55 pm . who was made aware of the lab, the treatment, the patient condition. The patient is admitted to Tel Disclaimer: Inadvertent spelling and grammatical errors are likely due to EHR/dictation software use and do not reflect on the overall quality of patient care. Also, please note that the electronic time recorded on this note does not necessarily reflect the actual time of the patient encounter. JIMY DE LA ROSA MD Mar 20, 2018 15:49
[2018-03-20] MEDS ORDERED: NITROGLYCERIN 2% 1 GM OINT PKT TD STA (16:22)
[2018-03-20] MEDS ORDERED: ASPIRIN 81 MG TAB PO STA (16:22)
[2018-03-20] MEDS ORDERED: FURO40TA4 PO (16:23)
[2018-03-20] MEDS ORDERED: ISOS30TA67 PO (16:23)
[2018-03-20] MEDS ORDERED: FEBU80TA PO (16:23)
[2018-03-20] MEDS ORDERED: CLOP75TA27 PO (16:23)
[2018-03-20] MEDS ORDERED: FUROSEMIDE 40 MG INJ IV ONE (18:00)
[2018-03-20] MEDS ORDERED: NACL 0.9% 3 ML SYG IV SCH (19:30)
--- NOTE | 2018-03-20 19:43 | HP ---
Date/Time of Note Date/Time of Note DATE: 03/20/18 TIME: 19:31 Assessment/Plan VTE Prophylaxis Pharmacological prophylaxis: LMWH Lines/Catheters IV C[facility]ter Type (from [facility] Saline Lock Assessment/Plan Assessment/Plan 72 yo man with IDDM and CHF presenting in exacerbation. #Chronic congestive heart failure with acute exacerbation - Elevated BNP, elevated JVP. - IV diuresis with bumex. - Only requiring 2L NC. - Trending trops also, EKG looks nonischemic. #IDDM - Continue home lantus and insulin sliding scale GI: PPI DVT: lovenox Result Diagram: 03/20/18 1620 03/20/18 1620 HPI/ROS Admit Date/Time Admit Date/Time Feb 17, 2018 Hx of Present Illness Mr. Duncan is a 72 yo man with history of IDDM, CHF, and CKD who presents with SOB and chest pressure. He was recently hospitalized here at [facility] from 03/04-03/08 also for CHF exacerbation. He got diuresed and was discharged on lasix 40mg daily. He reports compliance with all medications as documented. About 2 days ago he developed cough productive of yellow sputum, shortness of breath with mild activity, and pressure-like chest discomfort. These symptoms have gradually been worsening over the past two days so he presented to the ED. On arrival he was afebrile, slightly hypertensive to 166/91, otherwise vitals normal. Labs notable for BNP 34k (previously 18k) and trop 0.092 (slightly above baseline). CXR does not have significantly increased pulmonary edema. ROS He reports chills. Denies fever, anorexia, weight loss. He reports sore throat. Denies dysphagia, nausea, vomiting, palpitations, abdominal pain, diarrhea, constipation, melena, hematochezia, dysuria. PMH/Family/Social Past Medical History IDDM CHF Gout Medications Current Medications Aspirin (Halfprin) 81 mg DAILY PO ; Start 03/21/18 at 09:00; Status UNV Atorvastatin Calcium (Lipitor) 40 mg QHS PO ; Start 03/20/18 at 21:00; Status UNV Clopidogrel Bisulfate (plaVIX) 75 mg DAILY PO ; Start 03/21/18 at 09:00; Status UNV Febuxostat (Uloric) 80 mg DAILY PO ; Start 03/21/18 at 09:00; Status UNV Hydralazine HCl (Apresoline) 50 mg BID PO ; Start 03/20/18 at 21:00; Status UNV Isosorbide Mononitrate (Imdur) 30 mg DAILY PO ; Start 03/21/18 at 09:00; Status UNV Fish Oil (Fish Oil) 2,000 mg BID PO ; Start 03/20/18 at 21:00; Status UNV IV Flush (NS 3 ml) 3 ml PER PROTOCOL IV ; Start 03/20/18 at 19:30; Status UNV Pantoprazole (Protonix Tab) 40 mg DAILY@06 PO ; Start 03/21/18 at 06:00; Status UNV Enoxaparin Sodium (Lovenox) 40 mg DAILY SC ; Start 03/21/18 at 09:00; Status UNV Diagnostic Test (Pha) (Accu-Chek) 1 ea XX ; Start 03/21/18 at 02:00; Status UNV Insulin Glargine (Lantus) 40 units DAILY@2000 SC ; Start 03/20/18 at 20:00; Status UNV Miscellaneous Information (* Miscellaneous Pharmacy Order) HYPOGLYCEMIA PROTOCOL w... ONCE ONCE XX ; Start 03/20/18 at 19:30; Stop 03/20/18 at 19:31; Status UNV Insulin Aspart (Novolog Insulin Pen) NOVOLOG *MODERATE* ALGORITHM WITH MEALS BEDTIME SC ; Start 03/20/18 at 21:00; Status UNV Coded Allergies: Penicillins (Verified Allergy, Mild, 03/20/18) Past Surgical History Past Surgical Hx: noncontributory, angioplasty Family History Significant Family History: no pertinent family hx Social History Alcohol Use: none Smoking Status: Former smoker Drug Use: none Exam/Review of Systems Vital Signs Vitals Vital Signs Date Temp Pulse Resp B/P (MAP) Pulse Ox O2 O2 Flow FiO2 Time Delivery Rate 03/20/18 98.9 80 20 166/91 96 14:31 (116) Exam Exam General: Elderly man lying in bed, awake alert no acute distress. Head: Normocephalic atraumatic Eyes: EOMI, pupils reactive to light Neck: JVD up to the angle of the mandible. Respiratory: Coarse to auscultation bilaterally with bibasilar crackles. Cardiovascular: regular rate, no obvious murmurs Gastrointestinal: non-tender to palpation, bowel sounds heard. Neurological: Moves all extremities spontaneously Skin: warm dry well perfused ANGELIQUE ALVARES MD Mar 20, 2018 19:42
[2018-03-20] MEDS ORDERED: GLUCOSE GEL 15 GRAM TUBE BUCCAL PRN (20:00)
[2018-03-20] MEDS ORDERED: GLUCOSE GEL 15 GRAM TUBE PO PRN (20:00)
[2018-03-20] MEDS ORDERED: GLUCAGON 1 MG INJ IM PRN (20:00)
[2018-03-20] MEDS ORDERED: DEXTROSE 50% 50 ML SYRINGE IV PRN ×2 (20:00)
[2018-03-20] MEDS: INSULIN ASPART [NOVOLOG] 3 ML PEN SC SCH (21:00)
[2018-03-20] MEDS: BUMETANIDE 1 MG INJ IV SCH (21:14)
[2018-03-20] MEDS: INSULIN GLARGINE [LANTus] (100 UNITS/ML) SYG SC SCH (21:42)
[2018-03-20] MEDS: FISH OIL 1,000 MG CAP PO SCH (21:43)
[2018-03-20] MEDS: ATORVASTATIN 40 MG TAB PO SCH (21:43)
[2018-03-20] MEDS ORDERED: NITROGLYCERIN (SL) 0.4 MG TAB ONE (23:43)
[2018-03-20] MEDS: ACCU-CHEK XX SCH (23:53)
[2018-03-21] VITALS (11 sets, daily range): BP systolic 147–183; BP diastolic 72–94; PULSE 69–78; RESP 17–20
[2018-03-21] MEDS ORDERED: NITROGLYCERIN (SL) 0.4 MG TAB SL PRN
[2018-03-21] MEDS: INSULIN ASPART [NOVOLOG] 3 ML PEN SC SCH ×4 (07:35→21:00)
[2018-03-21] MEDS: BUMETANIDE 1 MG INJ IV SCH ×2 (08:11→17:38)
[2018-03-21] MEDS: CLOPIDOGREL 75 MG TAB PO SCH (09:27)
[2018-03-21] MEDS: ASPIRIN (EC) 81 MG TAB PO SCH (09:27)
[2018-03-21] MEDS: FISH OIL 1,000 MG CAP PO SCH ×2 (09:27→21:20)
[2018-03-21] MEDS: PANTOPRAZOLE (EC) 40 MG TAB PO SCH (09:27)
[2018-03-21] MEDS: FEBUXOSTAT 40 MG TABLET PO SCH (09:28)
[2018-03-21] MEDS: ISOSORBIDE MONONITRATE(SR)30 MG TAB PO SCH (09:30)
[2018-03-21] MEDS: ENOXAPARIN 30 MG/0.3 ML SYG SC SCH (09:30)
--- NOTE | 2018-03-21 15:14 | PN ---
Date/Time of Note Date/Time of Note DATE: 03/21/18 TIME: 15:05 Assessment/Plan VTE Prophylaxis Risk score (from Ns)>0 risk: 2 SCD applied (from [facility]): No SCD contraindicated: other Pharmacological prophylaxis: LMWH Lines/Catheters [facility] Saline Lock Assessment/Plan Hospital Course SUBJECTIVE: Continues to have dyspnea. OBJECTIVE: Physical Exam General: Obese 72 year-old male lying in bed in no apparent distress. HEENT: Normocephalic, atraumatic. Eyes: Anicteric sclerae, conjunctivae clear. ENT: Nasal septum midline, oral mucosa moist. Neck supple. JVD noticed. Respiratory: Bilaterally diminished breath sounds. Bilateral rales at the bases. Cardiovascular: S1, S2 heard. Regular rate and rhythm. Abdomen: Soft, nontender, and nondistended. Bowel sounds positive in all 4 quadrants. Genitourinary: Deferred. Extremities: No cyanosis, no clubbing. Trace B/L pedal edema. Peripheral pulses palpable. Neurologic: Cranial nerves II through XII grossly intact. The patient is awake, alert, and oriented. Skin: Normal skin turgor. No skin rashes Labs & Vitals per chart ASSESSMENT & PLAN This is a 72-year-old male with past medical history of essential hypertension, CAD status post coronary artery stenting, type 2 diabetes mellitus, cardiomyopathy, benign prostatic hypertrophy, and chronic kidney disease who came to the emergency room with chief complaint of sudden onset of dyspnea, productive cough, and elevated blood pressure readings at home. 1. Acute respiratory failure. -Hypoxic. -Most probably secondary to underlying CHF exacerbation. -Continue diuresis. 2. Congestive heart failure exacerbation. -Acute on chronic systolic dysfunction. -Continue diuresis. 3. Cardiomyopathy. -Ejection fraction of 30%. -Continue beta-blockers and nitrates. 4. Hypertensive urgency. -The patient will be continued on his antihypertensives. -The patient will also be continued on PRN antihypertensives for any systolic blood pressures greater than 160 mmHg. 5. Type 2 diabetes mellitus. -The patient will be continued on sliding scale insulin along with pre-meal insulin and basal insulin. -Hemoglobin A1c 11.6. 6. CAD. Status post coronary artery stenting. -The patient will be continued on antiplatelet therapy. 7. Chronic kidney disease. -Nephrotoxic drugs will be used with caution. -The patient's BUN and creatinine will be monitored closely. 8. Gout. -The patient will be continued on xanthine oxidase inhibitors (Febuxostat). 9. Dyslipidemia. -Continue statins and fish oil. 10. Fluids, electrolytes, and nutrition. -Carbohydrate controlled diet. 11. DVT prophylaxis. -Subcutaneous Lovenox (renal dose). 12. Plan. -Continue diuresis. -Await clinical improvement before discharging the patient home. The patient was seen in collaboration with Dr. Russell. Result Diagram: 03/21/18 0532 03/21/18 0532 Results 24hrs Laboratory Tests Test 03/20/18 15:49 03/20/18 16:20 03/20/18 20:41 03/20/18 21:38 POC Venous Lactate 1.6 White Blood Count 10.5 Red Blood Count 4.31 L Hemoglobin 11.9 L Hematocrit 36.7 L Mean Corpuscular Volume 85.2 Mean Corpuscular 27.6 L Hemoglobin Mean Corpuscular 32.4 Hemoglobin Concent Red Cell Distribution 13.0 Width Platelet Count 224 Mean Platelet Volume 11.2 H Immature Granulocytes % 0.500 H Neutrophils % 79.2 H Lymphocytes % 5.5 L Monocytes % 10.3 Eosinophils % 4.1 Basophils % 0.4 Nucleated Red Blood 0.0 Cells % Immature Granulocytes # 0.050 H Neutrophils # 8.3 H Lymphocytes # 0.6 L Monocytes # 1.1 H Eosinophils # 0.4 Basophils # 0.0 Nucleated Red Blood 0.0 Cells # Prothrombin Time 12.9 Prothrombin Time Ratio 1.0 INR International 0.96 Normalized Ratio Activated 30.3 Partial Thromboplast Time Sodium Level 138 Potassium Level 3.4 L Chloride Level 100 Carbon Dioxide Level 25 Anion Gap 13 Blood Urea Nitrogen 48 H Creatinine 2.93 H Est Glomerular Filtrat Rate mL/min Glucose Level 245 H Calcium Level 9.1 Troponin I 0.092 0.090 B-Type Natriuretic 06063 H Peptide Bedside Glucose 167 Test 03/20/18 23:53 03/21/18 02:24 03/21/18 05:32 03/21/18 05:46 Creatine Kinase 109 88 Creatine Kinase Index 1.3 1.7 Creatinine Kinase MB 1.42 1.48 (Mass) Troponin I 0.085 0.094 0.104 White Blood Count 10.4 Red Blood Count 4.24 L Hemoglobin 11.7 L Hematocrit 36.1 L Mean Corpuscular Volume 85.1 Mean Corpuscular 27.6 L Hemoglobin Mean Corpuscular 32.4 Hemoglobin Concent Red Cell Distribution 13.1 Width Platelet Count 223 Mean Platelet Volume 10.3 Immature Granulocytes % 0.300 Neutrophils % 73.7 Lymphocytes % 7.2 L Monocytes % 13.7 H Eosinophils % 4.7 Basophils % 0.4 Nucleated Red Blood 0.0 Cells % Immature Granulocytes # 0.030 Neutrophils # 7.7 H Lymphocytes # 0.8 Monocytes # 1.4 H Eosinophils # 0.5 Basophils # 0.0 Nucleated Red Blood 0.0 Cells # Sodium Level 141 Potassium Level 3.4 L Chloride Level 103 Carbon Dioxide Level 29 Anion Gap 9 Blood Urea Nitrogen 55 H Creatinine 2.76 H Est Glomerular Filtrat Rate mL/min Glucose Level 142 # Hemoglobin A1c 11.6 H Calcium Level 9.0 Phosphorus Level 4.0 Magnesium Level 1.8 Total Bilirubin 0.4 Direct Bilirubin 0.00 Indirect Bilirubin 0.4 Aspartate Amino 33 Transf (AST/SGOT) Alanine 50 Aminotransferase (ALT/SG PT) Alkaline Phosphatase 127 H Total Protein 5.7 L Albumin 3.1 L Globulin 2.60 Albumin/Globulin Ratio 1.19 Thyroid Stimulating 2.910 Hormone (TSH) Bedside Glucose 133 Test 03/21/18 08:41 03/21/18 12:59 Bedside Glucose 133 346 H Exam/Review of Systems Exam Vitals Vital Signs Date Temp Pulse Resp B/P (MAP) Pulse Ox O2 O2 Flow FiO2 Time Delivery Rate 03/21/18 70 12:16 03/21/18 98.6 18 165/89 96 Nasal 2.0 11:45 (114) Cannula Results Results 24hrs Laboratory Tests Test 03/20/18 15:49 03/20/18 16:20 03/20/18 20:41 03/20/18 21:38 POC Venous Lactate 1.6 White Blood Count 10.5 Red Blood Count 4.31 L Hemoglobin 11.9 L Hematocrit 36.7 L Mean Corpuscular Volume 85.2 Mean Corpuscular 27.6 L Hemoglobin Mean Corpuscular 32.4 Hemoglobin Concent Red Cell Distribution 13.0 Width Platelet Count 224 Mean Platelet Volume 11.2 H Immature Granulocytes % 0.500 H Neutrophils % 79.2 H Lymphocytes % 5.5 L Monocytes % 10.3 Eosinophils % 4.1 Basophils % 0.4 Nucleated Red Blood 0.0 Cells % Immature Granulocytes # 0.050 H Neutrophils # 8.3 H Lymphocytes # 0.6 L Monocytes # 1.1 H Eosinophils # 0.4 Basophils # 0.0 Nucleated Red Blood 0.0 Cells # Prothrombin Time 12.9 Prothrombin Time Ratio 1.0 INR International 0.96 Normalized Ratio Activated 30.3 Partial Thromboplast Time Sodium Level 138 Potassium Level 3.4 L Chloride Level 100 Carbon Dioxide Level 25 Anion Gap 13 Blood Urea Nitrogen 48 H Creatinine 2.93 H Est Glomerular Filtrat Rate mL/min Glucose Level 245 H Calcium Level 9.1 Troponin I 0.092 0.090 B-Type Natriuretic 68503 H Peptide Bedside Glucose 167 Test 03/20/18 23:53 03/21/18 02:24 03/21/18 05:32 03/21/18 05:46 Creatine Kinase 109 88 Creatine Kinase Index 1.3 1.7 Creatinine Kinase MB 1.42 1.48 (Mass) Troponin I 0.085 0.094 0.104 White Blood Count 10.4 Red Blood Count 4.24 L Hemoglobin 11.7 L Hematocrit 36.1 L Mean Corpuscular Volume 85.1 Mean Corpuscular 27.6 L Hemoglobin Mean Corpuscular 32.4 Hemoglobin Concent Red Cell Distribution 13.1 Width Platelet Count 223 Mean Platelet Volume 10.3 Immature Granulocytes % 0.300 Neutrophils % 73.7 Lymphocytes % 7.2 L Monocytes % 13.7 H Eosinophils % 4.7 Basophils % 0.4 Nucleated Red Blood 0.0 Cells % Immature Granulocytes # 0.030 Neutrophils # 7.7 H Lymphocytes # 0.8 Monocytes # 1.4 H Eosinophils # 0.5 Basophils # 0.0 Nucleated Red Blood 0.0 Cells # Sodium Level 141 Potassium Level 3.4 L Chloride Level 103 Carbon Dioxide Level 29 Anion Gap 9 Blood Urea Nitrogen 55 H Creatinine 2.76 H Est Glomerular Filtrat Rate mL/min Glucose Level 142 # Hemoglobin A1c 11.6 H Calcium Level 9.0 Phosphorus Level 4.0 Magnesium Level 1.8 Total Bilirubin 0.4 Direct Bilirubin 0.00 Indirect Bilirubin 0.4 Aspartate Amino 33 Transf (AST/SGOT) Alanine 50 Aminotransferase (ALT/SG PT) Alkaline Phosphatase 127 H Total Protein 5.7 L Albumin 3.1 L Globulin 2.60 Albumin/Globulin Ratio 1.19 Thyroid Stimulating 2.910 Hormone (TSH) Bedside Glucose 133 Test 03/21/18 08:41 03/21/18 12:59 Bedside Glucose 133 346 H Medications Medication Current Medications Aspirin (Halfprin) 81 mg DAILY PO Last administered on 03/21/18 09:27; Admin Dose 81 MG; Start 03/21/18 at 09:00 Atorvastatin Calcium (Lipitor) 40 mg QHS PO Last administered on 03/20/18 21 :43; Admin Dose 40 MG; Start 03/20/18 at 21:00 Clopidogrel Bisulfate (plaVIX) 75 mg DAILY PO Last administered on 03/21/18 09:27; Admin Dose 75 MG; Start 03/21/18 at 09:00 Febuxostat (Uloric) 80 mg DAILY PO Last administered on 03/21/18 09:28; Admin Dose 80 MG; Start 03/21/18 at 09:00 Hydralazine HCl (Apresoline) 50 mg BID PO Last administered on 03/21/18 09:30; Admin Dose 50 MG; Start 03/20/18 at 21:00 Isosorbide Mononitrate (Imdur) 30 mg DAILY PO Last administered on 03/21/18 09:30; Admin Dose 30 MG; Start 03/21/18 at 09:00 Fish Oil (Fish Oil) 2,000 mg BID PO Last administered on 03/21/18 09:27; Admin Dose 2,000 MG; Start 03/20/18 at 21:00 IV Flush (NS 3 ml) 3 ml PER PROTOCOL IV ; Start 03/20/18 at 19:30 Pantoprazole (Protonix Tab) 40 mg DAILY@06 PO Last administered on 03/21/18 09:27; Admin Dose 40 MG; Start 03/21/18 at 06:00 Enoxaparin Sodium (Lovenox) 30 mg DAILY SC Last administered on 03/21/18 09:30; Admin Dose 30 MG; Start 03/21/18 at 09:00 Diagnostic Test (Pha) (Accu-Chek) 1 ea 02 XX ; Start 03/21/18 at 02:00 Insulin Glargine (Lantus) 40 units DAILY@2000 SC Last administered on 03/20/18 21:42; Admin Dose 40 UNITS; Start 03/20/18 at 20:00 Insulin Aspart (Novolog Insulin Pen) NOVOLOG *MODERATE* ALGORITHM WITH MEALS BEDTIME SC Last administered on 03/21/18at 13:04; Admin Dose 10 UNIT; Start 03/20/18 at 21:00 Bumetanide (Bumex) 1 mg BID DIURETICS IV Last administered on 03/21/18at 08:11; Admin Dose 1 MG; Start 03/20/18 at 19:30 Miscellaneous Information 1 ea NOTE XX ; Start 03/20/18 at 20:00 Glucose (Glutose) 15 gm Q15M PRN PO DECREASED GLUCOSE; Start 03/20/18 at 20:00 Glucose (Glutose) 22.5 gm Q15M PRN PO DECREASED GLUCOSE; Start 03/20/18 at 20:00 Dextrose (D50w Syringe) 25 ml Q15M PRN IV DECREASED GLUCOSE; Start 03/20/18 at 20:00 Dextrose (D50w Syringe) 50 ml Q15M PRN IV DECREASED GLUCOSE; Start 03/20/18 at 20:00 Glucagon (Glucagen) 1 mg Q15M PRN IM DECREASED GLUCOSE; Start 03/20/18 at 20:00 Glucose (Glutose) 15 gm Q15M PRN BUCCAL DECREASED GLUCOSE; Start 03/20/18 at 20:00 Nitroglycerin (Nitroglycerin (Sl Tab) 0.4 Mg) 1 tab PRN PRN SL CHEST PAIN Last administered on 03/21/18at 00:20; Admin Dose 1 TAB; Start 03/21/18 at 00:00 Hydralazine HCl (Apresoline) 10 mg Q6H PRN IV SBP>160; Start 03/21/18 at 15:00; Status UNV DALLIN ADAMS NP Mar 21, 2018 15:14
[2018-03-21] MEDS ORDERED: POTASSIUM CHLORIDE (SR) 10 MEQ TAB PO ONE (16:30)
[2018-03-21] MEDS: hydrALAzine 20 MG INJ IV PRN (19:48)
[2018-03-21] MEDS: INSULIN GLARGINE [LANTus] (100 UNITS/ML) SYG SC SCH (20:22)
[2018-03-21] MEDS: ATORVASTATIN 40 MG TAB PO SCH (21:20)
[2018-03-22] VITALS (11 sets, daily range): BP systolic 137–209; BP diastolic 65–93; PULSE 67–150; RESP 18–22
[2018-03-22] MEDS: hydrALAzine 20 MG INJ IV PRN (00:28)
[2018-03-22] MEDS: ACCU-CHEK XX SCH (02:00)
[2018-03-22] MEDS: BUMETANIDE 1 MG INJ IV SCH ×2 (06:51→17:47)
[2018-03-22] MEDS: PANTOPRAZOLE (EC) 40 MG TAB PO SCH (06:51)
[2018-03-22] MEDS: INSULIN ASPART [NOVOLOG] 3 ML PEN SC SCH ×4 (07:55→20:28)
[2018-03-22] MEDS: ISOSORBIDE MONONITRATE(SR)30 MG TAB PO SCH (08:21)
[2018-03-22] MEDS: CLOPIDOGREL 75 MG TAB PO SCH (08:21)
[2018-03-22] MEDS: ASPIRIN (EC) 81 MG TAB PO SCH (08:21)
[2018-03-22] MEDS: FISH OIL 1,000 MG CAP PO SCH ×2 (08:21→20:29)
[2018-03-22] MEDS: FEBUXOSTAT 40 MG TABLET PO SCH (08:21)
[2018-03-22] MEDS ORDERED: MAGNESIUM SULFATE 2 GM/50 ML 50 ML IVPB ONE (08:30)
[2018-03-22] MEDS ORDERED: POTASSIUM CHLORIDE (SR) 20 MEQ TAB PO STA (08:30)
[2018-03-22] MEDS: ENOXAPARIN 30 MG/0.3 ML SYG SC SCH (08:38)
[2018-03-22] MEDS: traMADol 50 MG TAB PO PRN ×2 (09:27→17:39)
--- NOTE | 2018-03-22 09:52 | PN ---
Date/Time of Note Date/Time of Note DATE: 03/22/18 TIME: 09:50 Assessment/Plan VTE Prophylaxis Risk score (from Ns)>0 risk: 2 SCD applied (from Ns): No SCD contraindicated: other Pharmacological prophylaxis: LMWH (Renal dose) Lines/Catheters IV Catheter Type (from [facility]): [place] Assessment/Plan Hospital Course SUBJECTIVE: Continues to have dyspnea. Complains of B/L knee pain. Had an episode of SVT that lasted approximately 4 minutes in the morning. The patient remained hemodynamically stable. OBJECTIVE: Physical Exam General: Obese 72 year-old male lying in bed in no apparent distress. HEENT: Normocephalic, atraumatic. Eyes: Anicteric sclerae, conjunctivae clear. ENT: Nasal septum midline, oral mucosa moist. Neck supple. JVD noticed. Respiratory: Bilaterally diminished breath sounds. Bilateral rales at the bases. Cardiovascular: S1, S2 heard. Regular rate and rhythm. Abdomen: Soft, nontender, and nondistended. Bowel sounds positive in all 4 quadrants. Genitourinary: Deferred. Extremities: No cyanosis, no clubbing. Trace B/L pedal edema. Peripheral pulses palpable. Neurologic: Cranial nerves II through XII grossly intact. The patient is awake, alert, and oriented. Skin: Normal skin turgor. No skin rashes Labs & Vitals per chart ASSESSMENT & PLAN This is a 72-year-old male with past medical history of essential hypertension, CAD status post coronary artery stenting, type 2 diabetes mellitus, cardiomyopathy, benign prostatic hypertrophy, and chronic kidney disease who came to the emergency room with chief complaint of sudden onset of dyspnea, productive cough, and elevated blood pressure readings at home. 1. Acute respiratory failure. -Hypoxic. -Most probably secondary to underlying CHF exacerbation. -Continue diuresis. 2. Congestive heart failure exacerbation. -Acute on chronic systolic dysfunction. -Continue diuresis. 3. Nonsustained SVT on 03/22/2018. -Converted to sinus rhythm. -Replete potassium and magnesium. -Obtain cardiology evaluation. 4. Cardiomyopathy. -Ejection fraction of 30%. -Continue beta-blockers and nitrates. 5. Hypertensive urgency. -The patient will be continued on his antihypertensives. -The patient will also be continued on PRN antihypertensives for any systolic blood pressures greater than 160 mmHg. 6. Type 2 diabetes mellitus. -The patient will be continued on sliding scale insulin along with pre-meal insulin and basal insulin. -Hemoglobin A1c 11.6. 7. CAD. Status post coronary artery stenting. -The patient will be continued on antiplatelet therapy. 8. Chronic kidney disease. -Nephrotoxic drugs will be used with caution. -The patient's BUN and creatinine will be monitored closely. 9. Gout. -The patient will be continued on xanthine oxidase inhibitors (Febuxostat). 10. Dyslipidemia. -Continue statins and fish oil. 11. Fluids, electrolytes, and nutrition. -Carbohydrate controlled diet. 12. DVT prophylaxis. -Subcutaneous Lovenox (renal dose). 13. Plan. -Continue diuresis. -Replete electrolytes. -Obtain cardiology consult. The patient was seen in collaboration with Dr. Russell. Result Diagram: 03/22/18 0604 03/22/18 0604 Results 24hrs Laboratory Tests Test 03/21/18 12:59 03/21/18 17:09 03/21/18 20:21 03/21/18 21:18 Bedside Glucose 346 H 94 146 161 Test 03/22/18 06:04 03/22/18 08:12 White Blood Count 10.2 Red Blood Count 4.26 L Hemoglobin 12.0 L Hematocrit 36.0 L Mean Corpuscular Volume 84.5 Mean Corpuscular 28.2 L Hemoglobin Mean Corpuscular 33.3 Hemoglobin Concent Red Cell Distribution 13.2 Width Platelet Count 253 Mean Platelet Volume 10.7 H Immature Granulocytes % 0.300 Neutrophils % 76.3 Lymphocytes % 7.4 L Monocytes % 12.4 H Eosinophils % 2.9 Basophils % 0.7 Nucleated Red Blood 0.0 Cells % Immature Granulocytes # 0.030 Neutrophils # 7.8 H Lymphocytes # 0.8 Monocytes # 1.3 H Eosinophils # 0.3 Basophils # 0.1 Nucleated Red Blood 0.0 Cells # Sodium Level 142 Potassium Level 3.3 L Chloride Level 107 Carbon Dioxide Level 29 Anion Gap 6 Blood Urea Nitrogen 55 H Creatinine 2.84 H Est Glomerular Filtrat Rate mL/min Glucose Level 89 # Calcium Level 9.2 Phosphorus Level 3.2 Magnesium Level 1.8 Bedside Glucose 89 Exam/Review of Systems Exam Vitals Vital Signs Date Temp Pulse Resp B/P (MAP) Pulse Ox O2 O2 Flow FiO2 Time Delivery Rate 03/22/18 98.0 83 22 137/70 96 Nasal 2.0 07:36 (92) Cannula Intake and Output 03/21/18 03/21/18 03/22/18 1515:00 23:00 07:00 IntakeIntake Total 240 ml 680 ml 650 ml OutputOutput Total 400 ml 1050 ml BalanceBalance -160 ml 680 ml -400 ml Results Results 24hrs Laboratory Tests Test 03/21/18 12:59 03/21/18 17:09 03/21/18 20:21 03/21/18 21:18 Bedside Glucose 346 H 94 146 161 Test 03/22/18 06:04 03/22/18 08:12 White Blood Count 10.2 Red Blood Count 4.26 L Hemoglobin 12.0 L Hematocrit 36.0 L Mean Corpuscular Volume 84.5 Mean Corpuscular 28.2 L Hemoglobin Mean Corpuscular 33.3 Hemoglobin Concent Red Cell Distribution 13.2 Width Platelet Count 253 Mean Platelet Volume 10.7 H Immature Granulocytes % 0.300 Neutrophils % 76.3 Lymphocytes % 7.4 L Monocytes % 12.4 H Eosinophils % 2.9 Basophils % 0.7 Nucleated Red Blood 0.0 Cells % Immature Granulocytes # 0.030 Neutrophils # 7.8 H Lymphocytes # 0.8 Monocytes # 1.3 H Eosinophils # 0.3 Basophils # 0.1 Nucleated Red Blood 0.0 Cells # Sodium Level 142 Potassium Level 3.3 L Chloride Level 107 Carbon Dioxide Level 29 Anion Gap 6 Blood Urea Nitrogen 55 H Creatinine 2.84 H Est Glomerular Filtrat Rate mL/min Glucose Level 89 # Calcium Level 9.2 Phosphorus Level 3.2 Magnesium Level 1.8 Bedside Glucose 89 Medications Medication Current Medications Aspirin (Halfprin) 81 mg DAILY PO Last administered on 03/22/18at 08:21; Admin Dose 81 MG; Start 03/21/18 at 09:00 Atorvastatin Calcium (Lipitor) 40 mg QHS PO Last administered on 03/21/18 21:20; Admin Dose 40 MG; Start 03/20/18 at 21:00 Clopidogrel Bisulfate (plaVIX) 75 mg DAILY PO Last administered on 03/22/18 08:21; Admin Dose 75 MG; Start 03/21/18 at 09:00 Febuxostat (Uloric) 80 mg DAILY PO Last administered on 03/22/18 08:21; Admin Dose 80 MG; Start 03/21/18 at 09:00 Hydralazine HCl (Apresoline) 50 mg BID PO Last administered on 03/22/18 08:21; Admin Dose 50 MG; Start 03/20/18 at 21:00 Isosorbide Mononitrate (Imdur) 30 mg DAILY PO Last administered on 03/22/18 08: 21; Admin Dose 30 MG; Start 03/21/18 at 09:00 Fish Oil (Fish Oil) 2,000 mg BID PO Last administered on 03/22/18 08:21; Admin Dose 2,000 MG; Start 03/20/18 at 21:00 IV Flush (NS 3 ml) 3 ml PER PROTOCOL IV ; Start 03/20/18 at 19:30 Pantoprazole (Protonix Tab) 40 mg DAILY@06 PO Last administered on 03/22/18 06:51; Admin Dose 40 MG; Start 03/21/18 at 06:00 Enoxaparin Sodium (Lovenox) 30 mg DAILY SC Last administered on 03/22/18 08:38; Admin Dose 30 MG; Start 03/21/18 at 09:00 Diagnostic Test (Pha) (Accu-Chek) 1 ea 02 XX ; Start 03/21/18 at 02:00 Insulin Glargine (Lantus) 40 units DAILY@2000 SC Last administered on 03/21/18 20:22; Admin Dose 40 UNITS; Start 03/20/18 at 20:00 Insulin Aspart (Novolog Insulin Pen) NOVOLOG *MODERATE* ALGORITHM WITH MEALS BEDTIME SC Last administered on 03/21/18 13:04; Admin Dose 10 UNIT; Start 03/20/18 at 21:00 Bumetanide (Bumex) 1 mg BID DIURETICS IV Last administered on 03/22/18 06:51; Admin Dose 1 MG; Start 03/20/18 at 19:30 Miscellaneous Information 1 ea NOTE XX ; Start 03/20/18 at 20:00 Glucose (Glutose) 15 gm Q15M PRN PO DECREASED GLUCOSE; Start 03/20/18 at 20:00 Glucose (Glutose) 22.5 gm Q15M PRN PO DECREASED GLUCOSE; Start 03/20/18 at 20:00 Dextrose (D50w Syringe) 25 ml Q15M PRN IV DECREASED GLUCOSE; Start 03/20/18 at 20:00 Dextrose (D50w Syringe) 50 ml Q15M PRN IV DECREASED GLUCOSE; Start 03/20/18 at 20:00 Glucagon (Glucagen) 1 mg Q15M PRN IM DECREASED GLUCOSE; Start 03/20/18 at 20:00 Glucose (Glutose) 15 gm Q15M PRN BUCCAL DECREASED GLUCOSE; Start 03/20/18 at 20:00 Nitroglycerin (Nitroglycerin (Sl Tab) 0.4 Mg) 1 tab PRN PRN SL CHEST PAIN Last administered on 03/21/18at 00:20; Admin Dose 1 TAB; Start 03/21/18 at 00:00 Hydralazine HCl (Apresoline) 10 mg Q6H PRN IV SBP>160 Last administered on 03/22/18at 00:28; Admin Dose 10 MG; Start 03/21/18 at 15:00 Carvedilol (Coreg) 3.125 mg BID PO Last administered on 03/22/18 08:22; Admin Dose 3.125 MG; Start 03/21/18 at 21:00 Magnesium Sulfate 50 ml @ 25 mls/hr ONCE ONCE IVPB Last administered on 03/22/18 09:27; Admin Dose 25 MLS/HR; Start 03/22/18 at 08:30; Stop 03/22/18 at 10:29 Tramadol HCl (Ultram) 50 mg Q6H PRN PO MODERATE PAIN LEVEL 4-6 Last administered on 03/22/18 09:27; Admin Dose 50 MG; Start 03/22/18 at 09:30 DALLIN ADAMS NP Mar 22, 2018 09:52
--- NOTE | 2018-03-22 13:29 | CONS ---
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% Ventricular tachycardia Acute kidney injury with history of CKD Hypertension -Patient with evidence of decompensated heart failure. We will continue diuretics with renal involvement given abnormal renal function. -Maintain potassium above 4.0 and magnesium above 2.0 -Continue beta-blockers heart rate and blood pressure permits -Continue telemetry monitoring -Will likely need ICD prior to discharge Consultation Date/Type/Reason Admit Date/Time Feb 17, 2018 Type of Consult Cardiology Reason for Consultation chf Date/Time of Note DATE: 03/22/18 TIME: 13:29 Hx of Present Illness This is a 72-year-old male with past medical history of cardiomyopathy, congesti ve heart failure who presents with progressive worsening shortness of breath over the past 2 weeks. Patient also with lower extremity edema. Initially was having some chest discomfort that was intermittent and sporadic but has since improved. He does complain of cough but nonproductive. Denies any fevers or chills. Denies dizziness or lightheadedness. Symptoms have improved since admission 12 point review of systems was performed with all pertinent positives and negatives mentioned above and all else is negative Past Medical History Medical History: congestive heart failure, hypertension, renal disease Home Meds Active Scripts Furosemide* (Lasix*) 40 Mg Tablet, 40 MG PO DAILY for 60 Days, #60 TAB 4 Refills Prov:KELY BAUTISTA MD 03/08/18 Vest-3/Dha/Epa/Fish Oil (FISH OIL EC 1,000 MG SOFTGEL) 1 Each Capsule.dr, 2000 MG PO BID, #30 CAP Prov:JAD SHIN 03/03/17 Clopidogrel Bisulfate (Clopidogrel) 75 Mg Tablet, 75 MG PO DAILY, #30 TAB Prov:JAD SHIN 03/03/17 Reported Medications Isosorbide Mononitrate* (Isosorbide Mononitrate*) 30 Mg Tab.er.24h, 30 MG PO DAILY, TAB 03/20/18 Clopidogrel Bisulfate (Clopidogrel) 75 Mg Tablet, 75 MG PO DAILY, #30 TAB 03/20/18 Febuxostat* (Uloric*) 80 Mg Tablet, 80 MG PO DAILY, TAB 03/20/18 Furosemide* (Furosemide*) 40 Mg Tablet, 40 MG PO DAILY, TAB 03/20/18 Hydralazine Hcl* (Hydralazine Hcl*) 50 Mg Tab, 50 MG PO BID, #120 TAB 03/04/18 Aspirin* (Aspirin* EC) 81 Mg Tablet.dr, 81 MG PO DAILY, TAB 03/04/18 Liraglutide (Victoza 3-Donnie) 0.6 Mg/0.1 Ml Pen.injctr, 1.8 MG SQ QAM, SYR 03/04/18 Insulin Glargine,Hum.rec.anlog (Toukeyur Solostar) 300 Unit/1 Ml Insuln.pen, 40 UNIT SQ QPM, EA 03/04/18 Atorvastatin* (Atorvastatin*) 40 Mg Tablet, 40 MG PO QHS, #30 TAB 03/04/18 Omeprazole* (Omeprazole*) 20 Mg Capsule.dr, 20 MG PO DAILY, #30 CAP 02/18/17 Discontinued Reported Medications Carvedilol* (Coreg*) 3.125 Mg Tablet, 3.125 MG PO BID, #60 TAB 03/04/18 Medications Current Medications Aspirin (Halfprin) 81 mg DAILY PO Last administered on 03/22/18 08:21; Admin D ose 81 MG; Start 03/21/18 at 09:00 Atorvastatin Calcium (Lipitor) 40 mg QHS PO Last administered on 03/21/18 21:20; Admin Dose 40 MG; Start 03/20/18 at 21:00 Clopidogrel Bisulfate (plaVIX) 75 mg DAILY PO Last administered on 03/22/18 08:21; Admin Dose 75 MG; Start 03/21/18 at 09:00 Febuxostat (Uloric) 80 mg DAILY PO Last administered on 03/22/18 08:21; Admin Dose 80 MG; Start 03/21/18 at 09:00 Hydralazine HCl (Apresoline) 50 mg BID PO Last administered on 03/22/18 08:21; Admin Dose 50 MG; Start 03/20/18 at 21:00 Isosorbide Mononitrate (Imdur) 30 mg DAILY PO Last administered on 03/22/18 08:21; Admin Dose 30 MG; Start 03/21/18 at 09:00 Fish Oil (Fish Oil) 2,000 mg BID PO Last administered on 03/22/18 08:21; Admin Dose 2,000 MG; Start 03/20/18 at 21:00 IV Flush (NS 3 ml) 3 ml PER PROTOCOL IV ; Start 03/20/18 at 19:30 Pantoprazole (Protonix Tab) 40 mg DAILY@06 PO Last administered on 03/22/18at 06:51; Admin Dose 40 MG; Start 03/21/18 at 06:00 Enoxaparin Sodium (Lovenox) 30 mg DAILY SC Last administered on 03/22/18at 08:38; Admin Dose 30 MG; Start 03/21/18 at 09:00 Diagnostic Test (Pha) (Accu-Chek) 1 ea 02 XX ; Start 03/21/18 at 02:00 Insulin Glargine (Lantus) 40 units DAILY@2000 SC Last administered on 03/21/18at 20:22; Admin Dose 40 UNITS; Start 03/20/18 at 20:00 Insulin Aspart (Novolog Insulin Pen) NOVOLOG *MODERATE* ALGORITHM WITH MEALS BEDTIME SC Last administered on 03/22/18at 11:50; Admin Dose 6 UNIT; Start 03/20/18 at 21:00 Bumetanide (Bumex) 1 mg BID DIURETICS IV Last administered on 03/22/18at 06:51; Admin Dose 1 MG; Start 03/20/18 at 19:30 Miscellaneous Information 1 ea NOTE XX ; Start 03/20/18 at 20:00 Glucose (Glutose) 15 gm Q15M PRN PO DECREASED GLUCOSE; Start 03/20/18 at 20:00 Glucose (Glutose) 22.5 gm Q15M PRN PO DECREASED GLUCOSE; Start 03/20/18 at 20:00 Dextrose (D50w Syringe) 25 ml Q15M PRN IV DECREASED GLUCOSE; Start 03/20/18 at 20:00 Dextrose (D50w Syringe) 50 ml Q15M PRN IV DECREASED GLUCOSE; Start 03/20/18 at 20:00 Glucagon (Glucagen) 1 mg Q15M PRN IM DECREASED GLUCOSE; Start 03/20/18 at 20:00 Glucose (Glutose) 15 gm Q15M PRN BUCCAL DECREASED GLUCOSE; Start 03/20/18 at 20:00 Nitroglycerin (Nitroglycerin (Sl Tab) 0.4 Mg) 1 tab PRN PRN SL CHEST PAIN Last administered on 03/21/18at 00:20; Admin Dose 1 TAB; Start 03/21/18 at 00:00 Hydralazine HCl (Apresoline) 10 mg Q6H PRN IV SBP>160 Last administered on 03/22/18at 00:28; Admin Dose 10 MG; Start 03/21/18 at 15:00 Carvedilol (Coreg) 3.125 mg BID PO Last administered on 03/22/18at 08:22; Admin Dose 3.125 MG; Start 03/21/18 at 21:00 Tramadol HCl (Ultram) 50 mg Q6H PRN PO MODERATE PAIN LEVEL 4-6 Last administe red on 03/22/18at 09:27; Admin Dose 50 MG; Start 03/22/18 at 09:30 Allergies: Coded Allergies: Penicillins (Verified Allergy, Mild, 03/20/18) Past Surgical History Past Surgical Hx: noncontributory, angioplasty Social History Alcohol Use: none Smoking Status: Former smoker Drug Use: none Exam/Review of Systems Vital Signs Vitals Vital Signs Date Temp Pulse Resp B/P (MAP) Pulse Ox O2 O2 Flow FiO2 Time Delivery Rate 03/22/18 80 12:00 03/22/18 97.0 22 161/81 96 Nasal 2.0 11:25 (107) Cannula Intake and Output 03/21/18 03/21/18 03/22/18 1515:00 23:00 07:00 IntakeIntake Total 240 ml 680 ml 650 ml OutputOutput Total 400 ml 1050 ml BalanceBalance -160 ml 680 ml -400 ml Exam Exam No apparent distress Constitutional: alert, oriented Head: normocephalic Respiratory: other (Coarse breath sounds bilaterally, mild scattered crackles, no wheeze) Cardiovascular: regular rate and rhythm (Systolic murmur) Gastrointestinal: soft, non-tender, bowel sounds Extremities: edema Labs Result Diagram: 03/22/18 0604 03/22/18 0604 Results 24hrs Laboratory Tests Test 03/21/18 17:09 03/21/18 20:21 03/21/18 21:18 03/22/18 06:01 Bedside Glucose 94 146 161 Creatine Kinase 60 Creatine Kinase Index 1.4 Creatinine Kinase MB 0.86 (Mass) Troponin I 0.075 Test 03/22/18 06:04 03/22/18 08:12 03/22/18 12:51 White Blood Count 10.2 Red Blood Count 4.26 L Hemoglobin 12.0 L Hematocrit 36.0 L Mean Corpuscular Volume 84.5 Mean Corpuscular 28.2 L Hemoglobin Mean Corpuscular 33.3 Hemoglobin Concent Red Cell Distribution 13.2 Width Platelet Count 253 Mean Platelet Volume 10.7 H Immature Granulocytes % 0.300 Neutrophils % 76.3 Lymphocytes % 7.4 L Monocytes % 12.4 H Eosinophils % 2.9 Basophils % 0.7 Nucleated Red Blood 0.0 Cells % Immature Granulocytes # 0.030 Neutrophils # 7.8 H Lymphocytes # 0.8 Monocytes # 1.3 H Eosinophils # 0.3 Basophils # 0.1 Nucleated Red Blood 0.0 Cells # Sodium Level 142 Potassium Level 3.3 L Chloride Level 107 Carbon Dioxide Level 29 Anion Gap 6 Blood Urea Nitrogen 55 H Creatinine 2.84 H Est Glomerular Filtrat Rate mL/min Glucose Level 89 # Calcium Level 9.2 Phosphorus Level 3.2 Magnesium Level 1.8 Bedside Glucose 89 241 H Imaging Imaging ECG with sinus rhythm with PVCs, left bundle branch block, QRS 140 ms, nonspecific ST abnormalities Medications Medications Current Medications Aspirin (Halfprin) 81 mg DAILY PO Last administered on 03/22/18 08:21; Admin Dose 81 MG; Start 03/21/18 at 09:00 Atorvastatin Calcium (Lipitor) 40 mg QHS PO Last administered on 03/21/18 21:20; Admin Dose 40 MG; Start 03/20/18 at 21:00 Clopidogrel Bisulfate (plaVIX) 75 mg DAILY PO Last administered on 03/22/18 08:21; Admin Dose 75 MG; Start 03/21/18 at 09:00 Febuxostat (Uloric) 80 mg DAILY PO Last administered on 03/22/18 08:21; Admin Dose 80 MG; Start 03/21/18 at 09:00 Hydralazine HCl (Apresoline) 50 mg BID PO Last administered on 03/22/18 08:21; Admin Dose 50 MG; Start 03/20/18 at 21:00 Isosorbide Mononitrate (Imdur) 30 mg DAILY PO Last administered on 03/22/18 08:21; Admin Dose 30 MG; Start 03/21/18 at 09:00 Fish Oil (Fish Oil) 2,000 mg BID PO Last administered on 2/6/19at 08:21; Admin Dose 2,000 MG; Start 03/20/18 at 21:00 IV Flush (NS 3 ml) 3 ml PER PROTOCOL IV ; Start 03/20/18 at 19:30 Pantoprazole (Protonix Tab) 40 mg DAILY@06 PO Last administered on 03/22/18 06:51; Admin Dose 40 MG; Start 03/21/18 at 06:00 Enoxaparin Sodium (Lovenox) 30 mg DAILY SC Last administered on 03/22/18at 08:38; Admin Dose 30 MG; Start 03/21/18 at 09:00 Diagnostic Test (Pha) (Accu-Chek) 1 ea 02 XX ; Start 03/21/18 at 02:00 Insulin Glargine (Lantus) 40 units DAILY@2000 SC Last administered on 03/21/18 20:22; Admin Dose 40 UNITS; Start 03/20/18 at 20:00 Insulin Aspart (Novolog Insulin Pen) NOVOLOG *MODERATE* ALGORITHM WITH MEALS BEDTIME SC Last administered on 03/22/18at 11:50; Admin Dose 6 UNIT; Start 03/20/18 at 21:00 Bumetanide (Bumex) 1 mg BID DIURETICS IV Last administered on 03/22/18 06:51; Admin Dose 1 MG; Start 03/20/18 at 19:30 Miscellaneous Information 1 ea NOTE XX ; Start 03/20/18 at 20:00 Glucose (Glutose) 15 gm Q15M PRN PO DECREASED GLUCOSE; Start 03/20/18 at 20:00 Glucose (Glutose) 22.5 gm Q15M PRN PO DECREASED GLUCOSE; Start 03/20/18 at 20:00 Dextrose (D50w Syringe) 25 ml Q15M PRN IV DECREASED GLUCOSE; Start 03/20/18 at 20:00 Dextrose (D50w Syringe) 50 ml Q15M PRN IV DECREASED GLUCOSE; Start 03/20/18 at 20:00 Glucagon (Glucagen) 1 mg Q15M PRN IM DECREASED GLUCOSE; Start 03/20/18 at 20:00 Glucose (Glutose) 15 gm Q15M PRN BUCCAL DECREASED GLUCOSE; Start 03/20/18 at 20:00 Nitroglycerin (Nitroglycerin (Sl Tab) 0.4 Mg) 1 tab PRN PRN SL CHEST PAIN Last administered on 03/21/18 00:20; Admin Dose 1 TAB; Start 03/21/18 at 00:00 Hydralazine HCl (Apresoline) 10 mg Q6H PRN IV SBP>160 Last administered on 03/22/18at 00:28; Admin Dose 10 MG; Start 03/21/18 at 15:00 Carvedilol (Coreg) 3.125 mg BID PO Last administered on 03/22/18 08:22; Admin Dose 3.125 MG; Start 03/21/18 at 21:00 Tramadol HCl (Ultram) 50 mg Q6H PRN PO MODERATE PAIN LEVEL 4-6 Last administered on 03/22/18 09:27; Admin Dose 50 MG; Start 03/22/18 at 09:30 Agustin Traylor DO Mar 22, 2018 13:29
[2018-03-22] MEDS: ATORVASTATIN 40 MG TAB PO SCH (20:28)
[2018-03-22] MEDS: INSULIN GLARGINE [LANTus] (100 UNITS/ML) SYG SC SCH (20:34)
[2018-03-23] VITALS (12 sets, daily range): BP systolic 137–163; BP diastolic 71–79; PULSE 71–92; RESP 19–22
[2018-03-23] MEDS: ACCU-CHEK XX SCH (02:00)
[2018-03-23] MEDS: PANTOPRAZOLE (EC) 40 MG TAB PO SCH (06:12)
[2018-03-23] MEDS: BUMETANIDE 1 MG INJ IV SCH ×2 (06:12→17:32)
[2018-03-23] MEDS: FEBUXOSTAT 40 MG TABLET PO SCH (08:21)
--- NOTE | 2018-03-23 08:21 | CONS ---
DATE OF ADMISSION: 03/20/2018 DATE OF CONSULTATION: 03/23/2018 TYPE OF CONSULTATION: Nephrology. REASON FOR CONSULTATION: Acute kidney injury, chronic kidney disease. PHYSICIAN REQUESTING CONSULTATION: Dr. Traylor. HISTORY OF PRESENT ILLNESS: This is a 72-year-old male with a past medical history of chronic kidney disease stage IV with a previous baseline creatinine of around 2.5 mg/dL, a history of cardiomyopath y, history of diabetes, benign prostatic hypertrophy, gout, dyslipidemia, hypertension who presents t [facility] for shortness of breath and chest pressure. The patient was recently admitted to [facility] in February for CHF exacerbation. The patient was adequately diuresed and discharged home. The patient states for the last 2 days, he has been developing produc tive cough and sputum with increased shortness of breath. These symptoms have gradually worsened. A s a result, the patient came to the emergency room for evaluation. Upon arrival, the patient was not ed to be hypertensive, systolic pressures in the 160s. The patient had a chest x-ray that showed no significant pulmonary edema. The patient also had elevated BNP of 34,000. Troponin of 0.092. The p atient was admitted to telemetry, was placed on antibiotics and diuretic therapy. In terms of the patient's renal history, the patient has chronic kidney disease with previous baselin e creatinine ranging from 2.5 to 3.0 mg/dL. The patient on admission had a creatinine of 2.3 mg/dL, which has been fluctuating during the hospital course. The patient denies any hemoptysis, hematemesi s or hematochezia. PAST MEDICAL HISTORY: History of chronic kidney disease stage IV, history of diabetes, history of hy pertension, history of congestive heart failure, dyslipidemia, benign prostatic hypertrophy, gout, ca rdiomyopathy. PAST SURGICAL HISTORY: Status post cardiac catheterization. FAMILY HISTORY: Noncontributory. SOCIAL HISTORY: He does not drink, smoke, do drugs. MEDICATIONS: The patient's medications have been reviewed. REVIEW OF SYSTEMS: A 14-point review of systems was conducted. Pertinent positives stated in HPI, o therwise negative. PHYSICAL EXAMINATION: VITAL SIGNS: Blood pressure is 137/79, respirations 20, pulse 75, temperature 98.9. HEENT: Head is normocephalic. NECK: Supple. HEART: Regular rate. LUNGS: Show diminished breath sounds at the base. ABDOMEN: Soft, nontender to palpation. No rebound or guarding. EXTREMITIES: Negative for clubbing, cyanosis. Trace edema. DERMATOLOGIC: No rashes. MUSCULOSKELETAL: No joint effusions. NEUROLOGIC: No focal deficits. LABORATORY DATA: Shows white count of 12.1, hemoglobin 10.9, platelet count is 260. Sodium is 139, potassium is 3.8, chloride 104, BUN 56, creatinine 2.88. IMAGING STUDIES: Chest x-ray on 03/20/2018 was reviewed, showed moderate cardiomegaly with pulmonary vascular in upper normal limits, interstitial infiltrates noted, chronic. The patient's urine electrolyte studies have been reviewed. ASSESSMENT AND PLAN: 1. Nonoliguric acute kidney injury on top of chronic kidney disease stage IV with previous baseline creatinine of around 2.5 mg/dL. Etiology of current acute kidney injury is likely due to hemodynamic s, possible progression of chronic kidney disease. The patient's renal function is near previous bas tahir is around 2.5 mg/dL. At this point, we would continue current treatment plan, supportive care, renally dose all medicines, monitor renal function closely and diuretic therapy. 2. Anemia. Monitor hemoglobin and hematocrit levels. 3. Mineral bone disorder, monitor calcium and phosphorus levels. 4. Chronic kidney disease stage IV, likely secondary to hypertension and diabetic nephropathy. The patient is in possible acute kidney injury as stated above. Recommendation is to continue medical ma nagement. Otherwise, continue disease factor modification. 5. Acute respiratory failure, etiology is multifactorial secondary to congestive heart failure exace rbation. Continue diuretic therapy, monitor renal function closely. 6. Arrhythmia. Continue current medical management. 7. Hypertension. Continue current blood pressure regimen. 8. Diabetes. Continue current insulin regimen. 9. History of coronary artery disease. Continue current treatment plan. 10. Dyslipidemia. Continue statin therapy. Thank you, Dr. Traylor, for this interesting consult. It will be a pleasure to follow the patient adonay colon throughout the hospital course. Dictated By: CHRISTOPHER MARIO DO NR/NTS Conf#: [id number] DID#: [id number] CC: JIMY TRAYLOR DO; ANGELIQUE ALVARES MD;*EndCC*
[2018-03-23] MEDS: CLOPIDOGREL 75 MG TAB PO SCH (08:22)
[2018-03-23] MEDS: FISH OIL 1,000 MG CAP PO SCH ×2 (08:22→21:15)
[2018-03-23] MEDS: ASPIRIN (EC) 81 MG TAB PO SCH (08:22)
[2018-03-23] MEDS: ISOSORBIDE MONONITRATE(SR)30 MG TAB PO SCH (08:22)
[2018-03-23] MEDS: INSULIN ASPART [NOVOLOG] 3 ML PEN SC SCH ×3 (08:59→17:34)
[2018-03-23] MEDS: ENOXAPARIN 30 MG/0.3 ML SYG SC SCH (09:00)
--- NOTE | 2018-03-23 14:48 | PN ---
Date/Time of Note Date/Time of Note DATE: 03/23/18 TIME: 14:46 Assessment/Plan VTE Prophylaxis Risk score (from [facility])>0 risk: 4 [place]CD applied [place] [facility] [place] No SCD contraindicated: other Pharmacological prophylaxis: LMWH Lines/Catheters IV Catheter Type (from [facility]): Saline Lock Urinary Cath still in place: No Assessment/Plan Hospital Course SUBJECTIVE: Denies any dyspnea or chest pain. OBJECTIVE: Physical Exam General: Obese 72 year-old male lying in bed in no apparent distress. HEENT: Normocephalic, atraumatic. Eyes: Anicteric sclerae, conjunctivae clear. ENT: Nasal septum midline, oral mucosa moist. Neck supple. JVD noticed. Respiratory: Bilaterally diminished breath sounds. Bilateral rales at the bases. Cardiovascular: S1, S2 heard. Regular rate and rhythm. Abdomen: Soft, nontender, and nondistended. Bowel sounds positive in all 4 quadrants. Genitourinary: Deferred. Extremities: No cyanosis, no clubbing. Trace B/L pedal edema. Peripheral pulses palpable. Neurologic: Cranial nerves II through XII grossly intact. The patient is awake, alert, and oriented. Skin: Normal skin turgor. No skin rashes Labs & Vitals per chart ASSESSMENT & PLAN This is a 72-year-old male with past medical history of essential hypertension, CAD status post coronary artery stenting, type 2 diabetes mellitus, cardiomyopathy, benign prostatic hypertrophy, and chronic kidney disease who came to the emergency room with chief complaint of sudden onset of dyspnea, productive cough, and elevated blood pressure readings at home. 1. Acute respiratory failure. -Hypoxic. -Most probably secondary to underlying CHF exacerbation. -Continue diuresis. 2. Congestive heart failure exacerbation. -Acute on chronic systolic dysfunction. -Continue diuresis. 3. Nonsustained VT on 03/22/2018. -Converted to sinus rhythm. -Cardiology evaluation ongoing. 4. Cardiomyopathy. -Ejection fraction of 30%. -Continue beta-blockers and nitrates. 5. Hypertensive urgency. -The patient will be continued on his antihypertensives. -The patient will also be continued on PRN antihypertensives for any systolic blood pressures greater than 160 mmHg. 6. Type 2 diabetes mellitus. -The patient will be continued on sliding scale insulin along with pre-meal insulin and basal insulin. -Hemoglobin A1c 11.6. 7. CAD. Status post coronary artery stenting. -The patient will be continued on antiplatelet therapy. 8. Chronic kidney disease. -Nephrotoxic drugs will be used with caution. -The patient's BUN and creatinine will be monitored closely. -Nephrology following. 9. Gout. -The patient will be continued on xanthine oxidase inhibitors (Febuxostat). 10. Dyslipidemia. -Continue statins and fish oil. 11. Fluids, electrolytes, and nutrition. -Carbohydrate controlled diet. 12. DVT prophylaxis. -Subcutaneous Lovenox (renal dose). 13. Plan. -Continue diuresis while carefully monitoring renal function. -Needs ICD/LifeVest prior to discharge as per cardiology. The patient was seen in collaboration with Dr. Russell. Result Diagram: 03/23/18 0644 03/23/18 06 Results 24hrs Laboratory Tests Test 03/22/18 17:34 03/22/18 20:28 03/23/18 06:44 03/23/18 07:42 Bedside Glucose 233 H 171 68 L White Blood Count 12.1 H Red Blood Count 3.91 L Hemoglobin 10.9 L Hematocrit 33.2 L Mean Corpuscular Volume 84.9 Mean Corpuscular 27.9 L Hemoglobin Mean Corpuscular 32.8 Hemoglobin Concent Red Cell Distribution 13.2 Width Platelet Count 260 Mean Platelet Volume 10.4 Immature Granulocytes % 0.200 Neutrophils % 76.4 Lymphocytes % 6.6 L Monocytes % 16.1 H Eosinophils % 0.4 Basophils % 0.3 Nucleated Red Blood 0.0 Cells % Immature Granulocytes # 0.030 Neutrophils # 9.2 H Lymphocytes # 0.8 Monocytes # 2.0 H Eosinophils # 0.1 Basophils # 0.0 Nucleated Red Blood 0.0 Cells # Sodium Level 139 Potassium Level 3.8 Chloride Level 104 Carbon Dioxide Level 31 Anion Gap 4 L Blood Urea Nitrogen 56 H Creatinine 2.88 H Est Glomerular Filtrat Rate mL/min Glucose Level 67 #L Calcium Level 8.9 Phosphorus Level 3.5 Magnesium Level 2.0 Test 03/23/18 08:20 03/23/18 12:23 Bedside Glucose 169 279 H Exam/Review of Systems Exam Vitals Vital Signs Date Temp Pulse Resp B/P (MAP) Pulse Ox O2 O2 Flow FiO2 Time Delivery Rate 03/23/18 72 12:28 03/23/18 96.5 22 138/72 96 Room Air 11:59 (94) 03/23/18 2.0 07:44 Intake and Output 03/22/18 03/22/18 03/23/18 1515:00 23:00 07:00 IntakeIntake Total 300 ml BalanceBalance 300 ml Results Results 24hrs Laboratory Tests Test 03/22/18 17:34 03/22/18 20:28 03/23/18 06:44 03/23/18 07:42 Bedside Glucose 233 H 171 68 L White Blood Count 12.1 H Red Blood Count 3.91 L Hemoglobin 10.9 L Hematocrit 33.2 L Mean Corpuscular Volume 84.9 Mean Corpuscular 27.9 L Hemoglobin Mean Corpuscular 32.8 Hemoglobin Concent Red Cell Distribution 13.2 Width Platelet Count 260 Mean Platelet Volume 10.4 Immature Granulocytes % 0.200 Neutrophils % 76.4 Lymphocytes % 6.6 L Monocytes % 16.1 H Eosinophils % 0.4 Basophils % 0.3 Nucleated Red Blood 0.0 Cells % Immature Granulocytes # 0.030 Neutrophils # 9.2 H Lymphocytes # 0.8 Monocytes # 2.0 H Eosinophils # 0.1 Basophils # 0.0 Nucleated Red Blood 0.0 Cells # Sodium Level 139 Potassium Level 3.8 Chloride Level 104 Carbon Dioxide Level 31 Anion Gap 4 L Blood Urea Nitrogen 56 H Creatinine 2.88 H Est Glomerular Filtrat Rate mL/min Glucose Level 67 #L Calcium Level 8.9 Phosphorus Level 3.5 Magnesium Level 2.0 Test 03/23/18 08:20 03/23/18 12:23 Bedside Glucose 169 279 H Medications Medication Current Medications Aspirin (Halfprin) 81 mg DAILY PO Last administered on 03/23/18at 08:22; Admin Dose 81 MG; Start 03/21/18 at 09:00 Atorvastatin Calcium (Lipitor) 40 mg QHS PO Last administered on 03/22/18at 20:28; Admin Dose 40 MG; Start 03/20/18 at 21:00 Clopidogrel Bisulfate (plaVIX) 75 mg DAILY PO Last administered on 03/23/18at 08:22; Admin Dose 75 MG; Start 03/21/18 at 09:00 Febuxostat (Uloric) 80 mg DAILY PO Last administered on 03/23/18at 08:21; Admin Dose 80 MG; Start 03/21/18 at 09:00 Hydralazine HCl (Apresoline) 50 mg BID PO Last administered on 03/23/18 08:22; Admin Dose 50 MG; Start 03/20/18 at 21:00 Isosorbide Mononitrate (Imdur) 30 mg DAILY PO Last administered on 03/23/18 08:22; Admin Dose 30 MG; Start 03/21/18 at 09:00 Fish Oil (Fish Oil) 2,000 mg BID PO Last administered on 03/23/18 08:22; Admin Dose 2,000 MG; Start 03/20/18 at 21:00 IV Flush (NS 3 ml) 3 ml PER PROTOCOL IV ; Start 03/20/18 at 19:30 Pantoprazole (Protonix Tab) 40 mg DAILY@06 PO Last administered on 03/23/18 06:12; Admin Dose 40 MG; Start 03/21/18 at 06:00 Enoxaparin Sodium (Lovenox) 30 mg DAILY SC Last administered on 03/23/18 09:00; Admin Dose 30 MG; Start 03/21/18 at 09:00 Diagnostic Test (Pha) (Accu-Chek) 1 ea 02 XX ; Start 03/21/18 at 02:00 Insulin Glargine (Lantus) 40 units DAILY@2000 SC Last administered on 03/22/18 20:34; Admin Dose 40 UNITS; Start 03/20/18 at 20:00 Insulin Aspart (Novolog Insulin Pen) NOVOLOG *MODERATE* ALGORITHM WITH MEALS BEDTIME SC Last administered on 03/23/18 12:33; Admin Dose 8 UNIT; Start 03/20/18 at 21:00 Bumetanide (Bumex) 1 mg BID DIURETICS IV Last administered on 03/23/18 06:12; Admin Dose 1 MG; Start 03/20/18 at 19:30 Miscellaneous Information 1 ea NOTE XX ; Start 03/20/18 at 20:00 Glucose (Glutose) 15 gm Q15M PRN PO DECREASED GLUCOSE; Start 03/20/18 at 20:00 Glucose (Glutose) 22.5 gm Q15M PRN PO DECREASED GLUCOSE; Start 03/20/18 at 20:00 Dextrose (D50w Syringe) 25 ml Q15M PRN IV DECREASED GLUCOSE; Start 03/20/18 at 20:00 Dextrose (D50w Syringe) 50 ml Q15M PRN IV DECREASED GLUCOSE; Start 03/20/18 at 20:00 Glucagon (Glucagen) 1 mg Q15M PRN IM DECREASED GLUCOSE; Start 03/20/18 at 20:00 Glucose (Glutose) 15 gm Q15M PRN BUCCAL DECREASED GLUCOSE; Start 03/20/18 at 20:00 Nitroglycerin (Nitroglycerin (Sl Tab) 0.4 Mg) 1 tab PRN PRN SL CHEST PAIN Last administered on 03/21/18at 00:20; Admin Dose 1 TAB; Start 03/21/18 at 00:00 Hydralazine HCl (Apresoline) 10 mg Q6H PRN IV SBP>160 Last administered on 03/22/18at 00:28; Admin Dose 10 MG; Start 03/21/18 at 15:00 Tramadol HCl (Ultram) 50 mg Q6H PRN PO MODERATE PAIN LEVEL 4-6 Last administered on 03/22/18at 17:39; Admin Dose 50 MG; Start 03/22/18 at 09:30 Carvedilol (Coreg) 6.25 mg BID PO Last administered on 03/23/18at 08:22; Admin Dose 6.25 MG; Start 03/22/18 at 21:00 DALLIN ADAMS NP Mar 23, 2018 14:48
[2018-03-23] MEDS: traMADol 50 MG TAB PO PRN ×2 (15:17→21:34)
[2018-03-23] MEDS ORDERED: POTASSIUM CHLORIDE (SR) 20 MEQ TAB PO STA (16:19)
--- NOTE | 2018-03-23 16:20 | CONS ---
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% Ventricular tachycardia Acute kidney injury with history of CKD Hypertension -Patient with evidence of decompensated heart failure. We will continue diuretics with renal involvement given abnormal renal function. -Maintain potassium above 4.0 and magnesium above 2.0 -Continue beta-blockers heart rate and blood pressure permits -Continue telemetry monitoring -Will likely need ICD prior to discharge Consultation Date/Type/Reason Admit Date/Time Mar 20, 2018 at 19:05 Initial Consult Date Type of Consult Cardiology Date/Time of Note DATE: 03/23/18 TIME: 16:19 24 HR Interval Summary Free Text/Dictation Shortness of breath is better. Denies chest pain, palpitations or dizziness Exam/Review of Systems Vital Signs Vitals Vital Signs Date Temp Pulse Resp B/P (MAP) Pulse Ox O2 O2 Flow FiO2 Time Delivery Rate 03/23/18 97.5 77 20 163/74 96 Nasal 16:18 (103) Cannula 03/23/18 2.0 07:44 Intake and Output 03/22/18 03/22/18 03/23/18 1515:00 23:00 07:00 IntakeIntake Total 300 ml BalanceBalance 300 ml Exam Exam No apparent distress Constitutional: alert, oriented Head: normocephalic Respiratory: other (Coarse breath sounds bilaterally, no wheezing) Cardiovascular: regular rate and rhythm, other (S1-S2 heard) Gastrointestinal: soft, non-tender, bowel sounds Extremities: edema Labs Result Diagram: 03/23/18 0644 03/23/18 0644 Results 24hrs Laboratory Tests Test 03/22/18 17:34 03/22/18 20:28 03/23/18 06:44 03/23/18 07:42 Bedside Glucose 233 H 171 68 L White Blood Count 12.1 H Red Blood Count 3.91 L Hemoglobin 10.9 L Hematocrit 33.2 L Mean Corpuscular Volume 84.9 Mean Corpuscular 27.9 L Hemoglobin Mean Corpuscular 32.8 Hemoglobin Concent Red Cell Distribution 13.2 Width Platelet Count 260 Mean Platelet Volume 10.4 Immature Granulocytes % 0.200 Neutrophils % 76.4 Lymphocytes % 6.6 L Monocytes % 16.1 H Eosinophils % 0.4 Basophils % 0.3 Nucleated Red Blood 0.0 Cells % Immature Granulocytes # 0.030 Neutrophils # 9.2 H Lymphocytes # 0.8 Monocytes # 2.0 H Eosinophils # 0.1 Basophils # 0.0 Nucleated Red Blood 0.0 Cells # Sodium Level 139 Potassium Level 3.8 Chloride Level 104 Carbon Dioxide Level 31 Anion Gap 4 L Blood Urea Nitrogen 56 H Creatinine 2.88 H Est Glomerular Filtrat Rate mL/min Glucose Level 67 #L Calcium Level 8.9 Phosphorus Level 3.5 Magnesium Level 2.0 Test 03/23/18 08:20 03/23/18 12:23 Bedside Glucose 169 279 H Medications Medications Current Medications Aspirin (Halfprin) 81 mg DAILY PO Last administered on 03/23/18 08:22; Admin Dose 81 MG; Start 03/21/18 at 09:00 Atorvastatin Calcium (Lipitor) 40 mg QHS PO Last administered on 03/22/18 20:28; Admin Dose 40 MG; Start 03/20/18 at 21:00 Clopidogrel Bisulfate (plaVIX) 75 mg DAILY PO Last administered on 03/23/18 08:22; Admin Dose 75 MG; Start 03/21/18 at 09:00 Febuxostat (Uloric) 80 mg DAILY PO Last administered on 03/23/18 08:21; Admin Dose 80 MG; Start 03/21/18 at 09:00 Hydralazine HCl (Apresoline) 50 mg BID PO Last administered on 03/23/18 08:22; Admin Dose 50 MG; Start 03/20/18 at 21:00 Isosorbide Mononitrate (Imdur) 30 mg DAILY PO Last administered on 03/23/18 08:22; Admin Dose 30 MG; Start 03/21/18 at 09:00 Fish Oil (Fish Oil) 2,000 mg BID PO Last administered on 03/23/18 08:22; Admin Dose 2,000 MG; Start 03/20/18 at 21:00 IV Flush (NS 3 ml) 3 ml PER PROTOCOL IV ; Start 03/20/18 at 19:30 Pantoprazole (Protonix Tab) 40 mg DAILY@06 PO Last administered on 03/23/18 06:12; Admin Dose 40 MG; Start 03/21/18 at 06:00 Enoxaparin Sodium (Lovenox) 30 mg DAILY SC Last administered on 03/23/18 09:00; Admin Dose 30 MG; Start 03/21/18 at 09:00 Diagnostic Test (Pha) (Accu-Chek) 1 ea 02 XX ; Start 03/21/18 at 02:00 Insulin Glargine (Lantus) 40 units DAILY@2000 SC Last administered on 03/22/18 20:34; Admin Dose 40 UNITS; Start 03/20/18 at 20:00 Insulin Aspart (Novolog Insulin Pen) NOVOLOG *MODERATE* ALGORITHM WITH MEALS BEDTIME SC Last administered on 03/23/18 12:33; Admin Dose 8 UNIT; Start 03/20/18 at 21:00 Bumetanide (Bumex) 1 mg BID DIURETICS IV Last administered on 03/23/18 06:12; Admin Dose 1 MG; Start 03/20/18 at 19:30 Miscellaneous Information 1 ea NOTE XX ; Start 03/20/18 at 20:00 Glucose (Glutose) 15 gm Q15M PRN PO DECREASED GLUCOSE; Start 03/20/18 at 20:00 Glucose (Glutose) 22.5 gm Q15M PRN PO DECREASED GLUCOSE; Start 03/20/18 at 20:00 Dextrose (D50w Syringe) 25 ml Q15M PRN IV DECREASED GLUCOSE; Start 03/20/18 at 20:00 Dextrose (D50w Syringe) 50 ml Q15M PRN IV DECREASED GLUCOSE; Start 03/20/18 at 20:00 Glucagon (Glucagen) 1 mg Q15M PRN IM DECREASED GLUCOSE; Start 03/20/18 at 20:00 Glucose (Glutose) 15 gm Q15M PRN BUCCAL DECREASED GLUCOSE; Start 03/20/18 at 20:00 Nitroglycerin (Nitroglycerin (Sl Tab) 0.4 Mg) 1 tab PRN PRN SL CHEST PAIN Last administered on 03/21/18at 00:20; Admin Dose 1 TAB; Start 03/21/18 at 00:00 Hydralazine HCl (Apresoline) 10 mg Q6H PRN IV SBP>160 Last administered on 03/22/18at 00:28; Admin Dose 10 MG; Start 03/21/18 at 15:00 Tramadol HCl (Ultram) 50 mg Q6H PRN PO MODERATE PAIN LEVEL 4-6 Last administered on 03/23/18at 15:17; Admin Dose 50 MG; Start 03/22/18 at 09:30 Carvedilol (Coreg) 6.25 mg BID PO Last administered on 03/23/18at 08:22; Admin Dose 6.25 MG; Start 03/22/18 at 21:00 Agustin Traylor DO Mar 23, 2018 16:20
[2018-03-23] MEDS ORDERED: MAGNESIUM SULFATE 1 GM/D5W 100 ML IVPB ONE (17:30)
[2018-03-23] MEDS: ATORVASTATIN 40 MG TAB PO SCH (21:15)
[2018-03-24] VITALS (12 sets, daily range): BP systolic 124–144; BP diastolic 65–80; PULSE 60–84; RESP 17–20
[2018-03-24] MEDS: INSULIN ASPART [NOVOLOG] 3 ML PEN SC SCH ×5 (00:03→20:51)
[2018-03-24] MEDS: INSULIN GLARGINE [LANTus] (100 UNITS/ML) SYG SC SCH ×2 (00:04→20:50)
[2018-03-24] MEDS: ACCU-CHEK XX SCH (02:45)
[2018-03-24] MEDS: PANTOPRAZOLE (EC) 40 MG TAB PO SCH (06:37)
[2018-03-24] MEDS: BUMETANIDE 1 MG INJ IV SCH (06:37)
[2018-03-24] MEDS: FISH OIL 1,000 MG CAP PO SCH ×2 (08:20→20:43)
[2018-03-24] MEDS: ASPIRIN (EC) 81 MG TAB PO SCH (08:20)
[2018-03-24] MEDS: CLOPIDOGREL 75 MG TAB PO SCH (08:21)
[2018-03-24] MEDS: ISOSORBIDE MONONITRATE(SR)30 MG TAB PO SCH (08:26)
[2018-03-24] MEDS: ENOXAPARIN 30 MG/0.3 ML SYG SC SCH (08:34)
[2018-03-24] MEDS: FEBUXOSTAT 40 MG TABLET PO SCH (09:54)
--- NOTE | 2018-03-24 12:05 | CONS ---
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% Ventricular tachycardia Acute kidney injury with history of CKD Hypertension -CHF improving, diuretics as per nephrology -Maintain potassium above 4.0 and magnesium above 2.0 -Continue beta-blockers heart rate and blood pressure permits -Please refer to progress note 03/23/2018, patient to be placed with LifeVest and after medical optimization, outpatient electrophysiology evaluation for biV ICD. LifeVest needed prior to discharge Consultation Date/Type/Reason Admit Date/Time Mar 20, 2018 at 19:05 Initial Consult Date Type of Consult Cardiology Date/Time of Note DATE: 03/24/18 TIME: 12:03 24 HR Interval Summary Free Text/Dictation Shortness of breath continues to improve. Denies chest pain, palpitations Exam/Review of Systems Vital Signs Vitals Vital Signs Date Temp Pulse Resp B/P (MAP) Pulse Ox O2 O2 Flow FiO2 Time Delivery Rate 03/24/18 97.9 65 17 128/66 96 11:13 (86) 03/24/18 Nasal 2.0 07:29 Cannula Intake and Output 03/23/18 03/23/18 03/24/18 1515:00 23:00 07:00 IntakeIntake Total 1030 ml 425 ml OutputOutput Total 200 ml 525 ml BalanceBalance 830 ml -100 ml Exam Constitutional: alert, oriented (No apparent distress) Respiratory: other (Coarse breath sounds bilaterally, no wheezing) Cardiovascular: regular rate and rhythm (S1-S2 heard) Gastrointestinal: soft, non-tender, bowel sounds Extremities: edema Labs Result Diagram: 03/24/18 0552 03/24/18 0552 Results 24hrs Laboratory Tests Test 03/23/18 12:23 03/23/18 17:34 03/23/18 21:20 03/24/18 02:47 Bedside Glucose 279 H 130 215 110 Test 03/24/18 05:52 03/24/18 07:43 03/24/18 08:08 White Blood Count 11.6 H Red Blood Count 3.66 L Hemoglobin 10.1 L Hematocrit 31.6 L Mean Corpuscular Volume 86.3 Mean Corpuscular 27.6 L Hemoglobin Mean Corpuscular 32.0 Hemoglobin Concent Red Cell Distribution 13.1 Width Platelet Count 238 Mean Platelet Volume 10.9 H Immature Granulocytes % 0.300 Neutrophils % 73.5 Lymphocytes % 8.4 L Monocytes % 16.5 H Eosinophils % 1.0 Basophils % 0.3 Nucleated Red Blood 0.0 Cells % Immature Granulocytes # 0.040 H Neutrophils # 8.5 H Lymphocytes # 1.0 Monocytes # 1.9 H Eosinophils # 0.1 Basophils # 0.0 Nucleated Red Blood 0.0 Cells # Sodium Level 137 Potassium Level 3.8 Chloride Level 101 Carbon Dioxide Level 31 Anion Gap 5 Blood Urea Nitrogen 70 H Creatinine 3.15 H Est Glomerular Filtrat Rate mL/min Glucose Level 46 #*L Uric Acid 5.8 Calcium Level 8.9 Phosphorus Level 4.1 Magnesium Level 2.3 Bedside Glucose 119 164 Medications Medications Current Medications Aspirin (Halfprin) 81 mg DAILY PO Last administered on 03/24/18 08:20; Admin Dose 81 MG; Start 03/21/18 at 09:00 Atorvastatin Calcium (Lipitor) 40 mg QHS PO Last administered on 03/23/18 21:15; Admin Dose 40 MG; Start 03/20/18 at 21:00 Clopidogrel Bisulfate (plaVIX) 75 mg DAILY PO Last administered on 03/24/18 08:21; Admin Dose 75 MG; Start 03/21/18 at 09:00 Febuxostat (Uloric) 80 mg DAILY PO Last administered on 03/24/18 09:54; Admin Dose 80 MG; Start 03/21/18 at 09:00 Hydralazine HCl (Apresoline) 50 mg BID PO Last administered on 03/24/18 08:25; Admin Dose 50 MG; Start 03/20/18 at 21:00 Isosorbide Mononitrate (Imdur) 30 mg DAILY PO Last administered on 03/24/18 08:26; Admin Dose 30 MG; Start 03/21/18 at 09:00 Fish Oil (Fish Oil) 2,000 mg BID PO Last administered on 03/24/18 08:20; Admin Dose 2,000 MG; Start 03/20/18 at 21:00 IV Flush (NS 3 ml) 3 ml PER PROTOCOL IV ; Start 03/20/18 at 19:30 Pantoprazole (Protonix Tab) 40 mg DAILY@06 PO Last administered on 03/24/18 0 6:37; Admin Dose 40 MG; Start 03/21/18 at 06:00 Enoxaparin Sodium (Lovenox) 30 mg DAILY SC Last administered on 03/24/18at 08:34; Admin Dose 30 MG; Start 03/21/18 at 09:00 Diagnostic Test (Pha) (Accu-Chek) 1 ea 02 XX ; Start 03/21/18 at 02:00 Insulin Glargine (Lantus) 40 units DAILY@2000 SC Last administered on 03/24/18at 00:04; Admin Dose 40 UNITS; Start 03/20/18 at 20:00 Insulin Aspart (Novolog Insulin Pen) NOVOLOG *MODERATE* ALGORITHM WITH MEALS BEDTIME SC Last administered on 03/24/18at 00:03; Admin Dose 1 UNIT; Start 03/20/18 at 21:00 Miscellaneous Information 1 ea NOTE XX ; Start 03/20/18 at 20:00 Glucose (Glutose) 15 gm Q15M PRN PO DECREASED GLUCOSE; Start 03/20/18 at 20:00 Glucose (Glutose) 22.5 gm Q15M PRN PO DECREASED GLUCOSE; Start 03/20/18 at 20:00 Dextrose (D50w Syringe) 25 ml Q15M PRN IV DECREASED GLUCOSE; Start 03/20/18 at 20:00 Dextrose (D50w Syringe) 50 ml Q15M PRN IV DECREASED GLUCOSE; Start 03/20/18 at 20:00 Glucagon (Glucagen) 1 mg Q15M PRN IM DECREASED GLUCOSE; Start 03/20/18 at 20:00 Glucose (Glutose) 15 gm Q15M PRN BUCCAL DECREASED GLUCOSE; Start 03/20/18 at 20:00 Nitroglycerin (Nitroglycerin (Sl Tab) 0.4 Mg) 1 tab PRN PRN SL CHEST PAIN Last administered on 03/21/18at 00:20; Admin Dose 1 TAB; Start 03/21/18 at 00:00 Hydralazine HCl (Apresoline) 10 mg Q6H PRN IV SBP>160 Last administered on 03/22/18at 00:28; Admin Dose 10 MG; Start 03/21/18 at 15:00 Tramadol HCl (Ultram) 50 mg Q6H PRN PO MODERATE PAIN LEVEL 4-6 Last administered on 03/23/18at 21:34; Admin Dose 50 MG; Start 03/22/18 at 09:30 Carvedilol (Coreg) 6.25 mg BID PO Last administered on 03/23/18at 21:15; Admin Dose 6.25 MG; Start 03/22/18 at 21:00 Bumetanide (Bumex) 1 mg BID DIURETICS PO ; Start 03/24/18 at 18:00 Agustin Traylor DO Mar 24, 2018 12:05
--- NOTE | 2018-03-24 12:11 | PN ---
DATE: 03/24/2018 SUBJECTIVE: The patient is stable, no events overnight. The patient's shortness of breath is improv ing. Urinary output has been adequate. OBJECTIVE: VITAL SIGNS: Blood pressure is 124/67, respirations 17, pulse 63, temperature 97.8. HEENT: Head is normocephalic. NECK: Supple. HEART: Regular rate. LUNGS: Show diminished breath sounds at the base. ABDOMEN: Soft, nontender to palpation without rebound or guarding. EXTREMITIES: Negative for clubbing, cyanosis, no edema. DERMATOLOGIC: No rashes. MUSCULOSKELETAL: No joint effusion. NEUROLOGIC: No change in exam. MEDICATIONS: Reviewed. LABORATORY DATA: Shows sodium 137, potassium 3.8, BUN 70, creatinine 3.14. White count 11.6, hemogl obin 10.1, platelet count 238. ASSESSMENT AND PLAN: 1. Nonoliguric acute kidney injury on top of chronic kidney disease stage IV with previous baseline creatinine of around 2.5 mg/dL. Etiology of acute kidney injury is likely secondary to hemodynamics, cardiorenal syndrome. The patient's renal function has declined in the last 24 hours. Plan at this point is to escalate diuretic therapy. The patient will be placed on Bumex 1 mg b.i.d. We will mon itor renal function, electrolytes closely. Continue supportive care, renally dose all medicines, joby id nephrotoxins. 2. Anemia. Continue to monitor hemoglobin and hematocrit levels. 3. Mineral bone disorder, monitor calcium and phosphorus levels. 4. Chronic kidney disease, stage IV, secondary to hypertension and diabetic nephropathy. The patien t is currently in acute kidney injury as stated above. We will continue current medical management. Otherwise, continue disease factor modification. 5. Acute respiratory failure secondary to congestive heart failure exacerbation. The patient is cli nically improving. Continue current diuretic regimen. 6. Arrhythmia. Continue medical management. 7. Hypertension. Continue current blood pressure regimen. 8. Diabetes. Continue current insulin regimen. 9. History of coronary artery disease. 10. Dyslipidemia. Continue statin therapy. Dictated By: CHRISTOPHER MARIO DO NR/NTS Conf#: [id number] DID#: [id number] CC: ANGELIQUE ALVARES MD; JIMY WAYNE DO;*EndCC*
--- NOTE | 2018-03-24 14:29 | PN ---
Date/Time of Note Date/Time of Note DATE: 03/24/18 TIME: 14:28 Assessment/Plan VTE Prophylaxis Risk score (from Ns)>0 risk: 3 SCD applied (from [facility] [place]): No SCD contraindicated: other Pharmacological prophylaxis: LMWH Lines/Catheters IV Catheter Type (from [facility]): Saline Lock Urinary Cath still in place: No Assessment/Plan Hospital Course SUBJECTIVE: Denies any dyspnea or chest pain. OBJECTIVE: Physical Exam General: Obese 72 year-old male lying in bed in no apparent distress. HEENT: Normocephalic, atraumatic. Eyes: Anicteric sclerae, conjunctivae clear. ENT: Nasal septum midline, oral mucosa moist. Neck supple. JVD noticed. Respiratory: Bilaterally diminished breath sounds. Bilateral rales at the bases. Cardiovascular: S1, S2 heard. Regular rate and rhythm. Abdomen: Soft, nontender, and nondistended. Bowel sounds positive in all 4 quadrants. Genitourinary: Deferred. Extremities: No cyanosis, no clubbing. Trace B/L pedal edema. Peripheral pulses palpable. Neurologic: Cranial nerves II through XII grossly intact. The patient is awake, alert, and oriented. Skin: Normal skin turgor. No skin rashes Labs & Vitals per chart ASSESSMENT & PLAN This is a 72-year-old male with past medical history of essential hypertension, CAD status post coronary artery stenting, type 2 diabetes mellitus, cardiomyopathy, benign prostatic hypertrophy, and chronic kidney disease who came to the emergency room with chief complaint of sudden onset of dyspnea, productive cough, and elevated blood pressure readings at home. 1. Acute respiratory failure. -Hypoxic. -Most probably secondary to underlying CHF exacerbation. -Continue diuresis. 2. Congestive heart failure exacerbation. -Acute on chronic systolic dysfunction. -Continue diuresis. 3. Sustained VT on 03/22/2018. -Converted to sinus rhythm. -Cardiology evaluation ongoing. 4. Cardiomyopathy. -Ejection fraction of 30%. -Continue beta-blockers and nitrates. 5. Hypertensive urgency. -The patient will be continued on his antihypertensives. -The patient will also be continued on PRN antihypertensives for any systolic b lood pressures greater than 160 mmHg. 6. Type 2 diabetes mellitus. -The patient will be continued on sliding scale insulin along with pre-meal insulin and basal insulin. -Hemoglobin A1c 11.6. 7. CAD. Status post coronary artery stenting. -The patient will be continued on antiplatelet therapy. 8. Chronic kidney disease. -Nephrotoxic drugs will be used with caution. -The patient's BUN and creatinine will be monitored closely. -Nephrology following. 9. Gout. -The patient will be continued on xanthine oxidase inhibitors (Febuxostat). 10. Dyslipidemia. -Continue statins and fish oil. 11. Fluids, electrolytes, and nutrition. -Carbohydrate controlled diet. 12. DVT prophylaxis. -Subcutaneous Lovenox (renal dose). 13. Plan. -Continue diuresis while carefully monitoring renal function. -Needs LifeVest prior to discharge as per cardiology. -Start stool softeners and laxatives. The patient was seen in collaboration with Dr. Russell. Result Diagram: 03/24/1852 03/24/1852 Results 24hrs Laboratory Tests Test 03/23/18 17:34 03/23/18 21:20 03/24/18 02:47 03/24/18 05:52 Bedside Glucose 130 215 110 White Blood Count 11.6 H Red Blood Count 3.66 L Hemoglobin 10.1 L Hematocrit 31.6 L Mean Corpuscular Volume 86.3 Mean Corpuscular 27.6 L Hemoglobin Mean Corpuscular 32.0 Hemoglobin Concent Red Cell Distribution 13.1 Width Platelet Count 238 Mean Platelet Volume 10.9 H Immature Granulocytes % 0.300 Neutrophils % 73.5 Lymphocytes % 8.4 L Monocytes % 16.5 H Eosinophils % 1.0 Basophils % 0.3 Nucleated Red Blood 0.0 Cells % Immature Granulocytes # 0.040 H Neutrophils # 8.5 H Lymphocytes # 1.0 Monocytes # 1.9 H Eosinophils # 0.1 Basophils # 0.0 Nucleated Red Blood 0.0 Cells # Sodium Level 137 Potassium Level 3.8 Chloride Level 101 Carbon Dioxide Level 31 Anion Gap 5 Blood Urea Nitrogen 70 H Creatinine 3.15 H Est Glomerular Filtrat Rate mL/min Glucose Level 46 #*L Uric Acid 5.8 Calcium Level 8.9 Phosphorus Level 4.1 Magnesium Level 2.3 Test 03/24/18 07:43 03/24/18 08:08 03/24/18 12:25 Bedside Glucose 119 164 251 H Exam/Review of Systems Exam Vitals Vital Signs Date Temp Pulse Resp B/P (MAP) Pulse Ox O2 O2 Flow FiO2 Time Delivery Rate 03/24/18 63 13:16 03/24/18 97.9 17 128/66 96 11:13 (86) 03/24/18 Nasal 2.0 07:29 Cannula Intake and Output 03/23/18 03/23/18 03/24/18 1515:00 23:00 07:00 IntakeIntake Total 1030 ml 425 ml OutputOutput Total 200 ml 525 ml BalanceBalance 830 ml -100 ml Results Results 24hrs Laboratory Tests Test 03/23/18 17:34 03/23/18 21:20 03/24/18 02:47 03/24/18 05:52 Bedside Glucose 130 215 110 White Blood Count 11.6 H Red Blood Count 3.66 L Hemoglobin 10.1 L Hematocrit 31.6 L Mean Corpuscular Volume 86.3 Mean Corpuscular 27.6 L Hemoglobin Mean Corpuscular 32.0 Hemoglobin Concent Red Cell Distribution 13.1 Width Platelet Count 238 Mean Platelet Volume 10.9 H Immature Granulocytes % 0.300 Neutrophils % 73.5 Lymphocytes % 8.4 L Monocytes % 16.5 H Eosinophils % 1.0 Basophils % 0.3 Nucleated Red Blood 0.0 Cells % Immature Granulocytes # 0.040 H Neutrophils # 8.5 H Lymphocytes # 1.0 Monocytes # 1.9 H Eosinophils # 0.1 Basophils # 0.0 Nucleated Red Blood 0.0 Cells # Sodium Level 137 Potassium Level 3.8 Chloride Level 101 Carbon Dioxide Level 31 Anion Gap 5 Blood Urea Nitrogen 70 H Creatinine 3.15 H Est Glomerular Filtrat Rate mL/min Glucose Level 46 #*L Uric Acid 5.8 Calcium Level 8.9 Phosphorus Level 4.1 Magnesium Level 2.3 Test 03/24/18 07:43 03/24/18 08:08 03/24/18 12:25 Bedside Glucose 119 164 251 H Medications Medication Current Medications Aspirin (Halfprin) 81 mg DAILY PO Last administered on 03/24/18at 08:20; Admin Dose 81 MG; Start 03/21/18 at 09:00 Atorvastatin Calcium (Lipitor) 40 mg QHS PO Last administered on 03/23/18at 21: 15; Admin Dose 40 MG; Start 03/20/18 at 21:00 Clopidogrel Bisulfate (plaVIX) 75 mg DAILY PO Last administered on 03/24/18at 08:21; Admin Dose 75 MG; Start 03/21/18 at 09:00 Febuxostat (Uloric) 80 mg DAILY PO Last administered on 03/24/18 09:54; Admin Dose 80 MG; Start 03/21/18 at 09:00 Hydralazine HCl (Apresoline) 50 mg BID PO Last administered on 03/24/18 08:25; Admin Dose 50 MG; Start 03/20/18 at 21:00 Isosorbide Mononitrate (Imdur) 30 mg DAILY PO Last administered on 03/24/18 08:26; Admin Dose 30 MG; Start 03/21/18 at 09:00 Fish Oil (Fish Oil) 2,000 mg BID PO Last administered on 03/24/18 08:20; Admin Dose 2,000 MG; Start 03/20/18 at 21:00 IV Flush (NS 3 ml) 3 ml PER PROTOCOL IV ; Start 03/20/18 at 19:30 Pantoprazole (Protonix Tab) 40 mg DAILY@06 PO Last administered on 03/24/18 06:37; Admin Dose 40 MG; Start 03/21/18 at 06:00 Enoxaparin Sodium (Lovenox) 30 mg DAILY SC Last administered on 03/24/18 08:34; Admin Dose 30 MG; Start 03/21/18 at 09:00 Diagnostic Test (Pha) (Accu-Chek) 1 ea 02 XX ; Start 03/21/18 at 02:00 Insulin Glargine (Lantus) 40 units DAILY@2000 SC Last administered on 03/24/18 00:04; Admin Dose 40 UNITS; Start 03/20/18 at 20:00 Insulin Aspart (Novolog Insulin Pen) NOVOLOG *MODERATE* ALGORITHM WITH MEALS BEDTIME SC Last administered on 03/24/18at 12:31; Admin Dose 6 UNIT; Start 03/20/18 at 21:00 Miscellaneous Information 1 ea NOTE XX ; Start 03/20/18 at 20:00 Glucose (Glutose) 15 gm Q15M PRN PO DECREASED GLUCOSE; Start 03/20/18 at 20:00 Glucose (Glutose) 22.5 gm Q15M PRN PO DECREASED GLUCOSE; Start 03/20/18 at 20:00 Dextrose (D50w Syringe) 25 ml Q15M PRN IV DECREASED GLUCOSE; Start 03/20/18 at 20:00 Dextrose (D50w Syringe) 50 ml Q15M PRN IV DECREASED GLUCOSE; Start 03/20/18 at 20:00 Glucagon (Glucagen) 1 mg Q15M PRN IM DECREASED GLUCOSE; Start 03/20/18 at 20:00 Glucose (Glutose) 15 gm Q15M PRN BUCCAL DECREASED GLUCOSE; Start 03/20/18 at 20:00 Nitroglycerin (Nitroglycerin (Sl Tab) 0.4 Mg) 1 tab PRN PRN SL CHEST PAIN Last administered on 03/21/18at 00:20; Admin Dose 1 TAB; Start 03/21/18 at 00:00 Hydralazine HCl (Apresoline) 10 mg Q6H PRN IV SBP>160 Last administered on 03/22/18at 00:28; Admin Dose 10 MG; Start 03/21/18 at 15:00 Tramadol HCl (Ultram) 50 mg Q6H PRN PO MODERATE PAIN LEVEL 4-6 Last administered on 03/23/18at 21:34; Admin Dose 50 MG; Start 03/22/18 at 09:30 Carvedilol (Coreg) 6.25 mg BID PO Last administered on 03/23/18at 21:15; Admin Dose 6.25 MG; Start 03/22/18 at 21:00 Bumetanide (Bumex) 1 mg BID DIURETICS PO ; Start 03/24/18 at 18:00 DALLIN ADAMS NP Mar 24, 2018 14:29
[2018-03-24] MEDS ORDERED: BISACODYL (EC) 5 MG TAB PO PRN (14:30)
[2018-03-24] MEDS: POLYETHYLENE GLYCOL 17 GM PACKET PO SCH ×2 (15:45→20:44)
[2018-03-24] MEDS: BUMETANIDE 1 MG TAB PO SCH (17:08)
[2018-03-24] MEDS: ATORVASTATIN 40 MG TAB PO SCH (20:43)
[2018-03-25] VITALS (10 sets, daily range): BP systolic 143–161; BP diastolic 71–83; PULSE 62–77; RESP 16–18
[2018-03-25] MEDS: ACCU-CHEK XX SCH (02:29)
[2018-03-25] MEDS: BUMETANIDE 1 MG TAB PO SCH ×2 (06:21→17:29)
[2018-03-25] MEDS: PANTOPRAZOLE (EC) 40 MG TAB PO SCH (06:21)
--- NOTE | 2018-03-25 07:04 | PN ---
Date/Time of Note Date/Time of Note DATE: 03/25/18 TIME: 07:04 Assessment/Plan VTE Prophylaxis Risk score (from Ns)>0 risk: 4 [place] [facility] [place] SCD contraindicated: other Pharmacological prophylaxis: LMWH Lines/Catheters IV Catheter Type (from [place]): Saline Lock Urinary Cath still in place: No Assessment/Plan Hospital Course SUBJECTIVE: Denies any dyspnea or chest pain. OBJECTIVE: Physical Exam General: Obese 72 year-old male lying in bed in no apparent distress. HEENT: Normocephalic, atraumatic. Eyes: Anicteric sclerae, conjunctivae clear. ENT: Nasal septum midline, oral mucosa moist. Neck supple. JVD noticed. Respiratory: Bilaterally diminished breath sounds. Bilateral rales at the bases. Cardiovascular: S1, S2 heard. Regular rate and rhythm. Abdomen: Soft, nontender, and nondistended. Bowel sounds positive in all 4 quadrants. Genitourinary: Deferred. Extremities: No cyanosis, no clubbing. Trace B/L pedal edema. Peripheral pulses palpable. Neurologic: Cranial nerves II through XII grossly intact. The patient is awake, alert, and oriented. Skin: Normal skin turgor. No skin rashes Labs & Vitals per chart ASSESSMENT & PLAN This is a 72-year-old male with past medical history of essential hypertension, CAD status post coronary artery stenting, type 2 diabetes mellitus, cardiomyopathy, benign prostatic hypertrophy, and chronic kidney disease who came to the emergency room with chief complaint of sudden onset of dyspnea, productive cough, and elevated blood pressure readings at home. 1. Acute respiratory failure. -Hypoxic. -Most probably secondary to underlying CHF exacerbation. -Continue diuresis. 2. Congestive heart failure exacerbation. -Acute on chronic systolic dysfunction. -Continue diuresis. 3. Sustained VT on 03/22/2018. -Converted to sinus rhythm. -Cardiology evaluation ongoing. 4. Cardiomyopathy. -Ejection fraction of 30%. -Continue beta-blockers and nitrates. 5. Hypertensive urgency. -The patient will be continued on his antihypertensives. -The patient will also be continued on PRN antihypertensives for any systolic b lood pressures greater than 160 mmHg. 6. Type 2 diabetes mellitus. -The patient will be continued on sliding scale insulin along with pre-meal insulin and basal insulin. -Hemoglobin A1c 11.6. 7. CAD. Status post coronary artery stenting. -The patient will be continued on antiplatelet therapy. 8. Chronic kidney disease. -Nephrotoxic drugs will be used with caution. -The patient's BUN and creatinine will be monitored closely. -Nephrology following. 9. Gout. -The patient will be continued on xanthine oxidase inhibitors (Febuxostat). 10. Dyslipidemia. -Continue statins and fish oil. 11. Fluids, electrolytes, and nutrition. -Carbohydrate controlled diet. 12. DVT prophylaxis. -Subcutaneous Lovenox (renal dose). 13. Plan. -Continue diuresis while carefully monitoring renal function. -Needs LifeVest prior to discharge as per cardiology. -Start stool softeners and laxatives. The patient was seen in collaboration with Dr. Russell. Result Diagram: 03/24/18 0552 03/24/1852 Results 24hrs Laboratory Tests Test 03/24/18 07:43 03/24/18 08:08 03/24/18 12:25 03/24/18 15:30 Bedside Glucose 119 164 251 H Urine Color YELLOW Urine Clarity CLEAR Urine pH 5.0 Urine Specific [place] 1.013 Urine Ketones NEGATIVE Urine Nitrite NEGATIVE Urine Bilirubin NEGATIVE Urine Urobilinogen NEGATIVE Urine Leukocyte Esterase NEGATIVE Urine Microscopic RBC 1 Urine Microscopic WBC 1 Urine Hemoglobin NEGATIVE Urine Random Creatinine 72.02 Urine Random Sodium 24 L Urine Glucose 1+ H Urine Total Protein 254.0 H Test 03/24/18 17:30 03/24/18 20:47 03/25/18 02:26 Bedside Glucose 235 H 160 95 Exam/Review of Systems Exam Vitals Vital Signs Date Temp Pulse Resp B/P (MAP) Pulse Ox O2 O2 Flow FiO2 Time Delivery Rate 03/25/18 62 05:09 03/25/18 98.3 16 151/81 97 03:58 (104) 03/24/18 Nasal 2.0 20:30 Cannula Intake and Output 03/24/18 03/24/18 03/25/18 1515:00 23:00 07:00 IntakeIntake Total 520 ml BalanceBalance 520 ml Results Results 24hrs Laboratory Tests Test 03/24/18 07:43 03/24/18 08:08 03/24/18 12:25 03/24/18 15:30 Bedside Glucose 119 164 251 H Urine Color YELLOW Urine Clarity CLEAR Urine pH 5.0 Urine Specific [place] 1.013 Urine Ketones NEGATIVE Urine Nitrite NEGATIVE Urine Bilirubin NEGATIVE Urine Urobilinogen NEGATIVE Urine Leukocyte Esterase NEGATIVE Urine Microscopic RBC 1 Urine Microscopic WBC 1 Urine Hemoglobin NEGATIVE Urine Random Creatinine 72.02 Urine Random Sodium 24 L Urine Glucose 1+ H Urine Total Protein 254.0 H Test 03/24/18 17:30 03/24/18 20:47 03/25/18 02:26 Bedside Glucose 235 H 160 95 Medications Medication Current Medications Aspirin (Halfprin) 81 mg DAILY PO Last administered on 03/24/18 08:20; Admin Dose 81 MG; Start 03/21/18 at 09:00 Atorvastatin Calcium (Lipitor) 40 mg QHS PO Last administered on 03/24/18 20:43; Admin Dose 40 MG; Start 03/20/18 at 21:00 Clopidogrel Bisulfate (plaVIX) 75 mg DAILY PO Last administered on 03/24/18 08:21; Admin Dose 75 MG; Start 03/21/18 at 09:00 Febuxostat (Uloric) 80 mg DAILY PO Last administered on 03/24/18 09:54; Admin Dose 80 MG; Start 03/21/18 at 09:00 Hydralazine HCl (Apresoline) 50 mg BID PO Last administered on 03/24/18 20:44; Admin Dose 50 MG; Start 03/20/18 at 21:00 Isosorbide Mononitrate (Imdur) 30 mg DAILY PO Last administered on 03/24/18 08:26; Admin Dose 30 MG; Start 03/21/18 at 09:00 Fish Oil (Fish Oil) 2,000 mg BID PO Last administered on 03/24/18 20:43; Admin Dose 2,000 MG; Start 03/20/18 at 21:00 IV Flush (NS 3 ml) 3 ml PER PROTOCOL IV ; Start 03/20/18 at 19:30 Pantoprazole (Protonix Tab) 40 mg DAILY@06 PO Last administered on 03/25/18 06:21; Admin Dose 40 MG; Start 03/21/18 at 06:00 Enoxaparin Sodium (Lovenox) 30 mg DAILY SC Last administered on 03/24/18 08:34; Admin Dose 30 MG; Start 03/21/18 at 09:00 Diagnostic Test (Pha) (Accu-Chek) 1 ea 02 XX Last administered on 03/25/18 02:29; Admin Dose 1 EA; Start 03/21/18 at 02:00 Insulin Glargine (Lantus) 40 units DAILY@2000 SC Last administered on 03/24/18 20:50; Admin Dose 40 UNITS; Start 03/20/18 at 20:00 Insulin Aspart (Novolog Insulin Pen) NOVOLOG *MODERATE* ALGORITHM WITH MEALS BEDTIME SC Last administered on 03/24/18at 17:48; Admin Dose 6 UNIT; Start 03/20/18 at 21:00 Miscellaneous Information 1 ea NOTE XX ; Start 03/20/18 at 20:00 Glucose (Glutose) 15 gm Q15M PRN PO DECREASED GLUCOSE; Start 03/20/18 at 20:00 Glucose (Glutose) 22.5 gm Q15M PRN PO DECREASED GLUCOSE; Start 03/20/18 at 20:00 Dextrose (D50w Syringe) 25 ml Q15M PRN IV DECREASED GLUCOSE; Start 03/20/18 at 20:00 Dextrose (D50w Syringe) 50 ml Q15M PRN IV DECREASED GLUCOSE; Start 03/20/18 at 20:00 Glucagon (Glucagen) 1 mg Q15M PRN IM DECREASED GLUCOSE; Start 03/20/18 at 20:00 Glucose (Glutose) 15 gm Q15M PRN BUCCAL DECREASED GLUCOSE; Start 03/20/18 at 2 0:00 Nitroglycerin (Nitroglycerin (Sl Tab) 0.4 Mg) 1 tab PRN PRN SL CHEST PAIN Last administered on 03/21/18at 00:20; Admin Dose 1 TAB; Start 03/21/18 at 00:00 Hydralazine HCl (Apresoline) 10 mg Q6H PRN IV SBP>160 Last administered on 03/22/18at 00:28; Admin Dose 10 MG; Start 03/21/18 at 15:00 Tramadol HCl (Ultram) 50 mg Q6H PRN PO MODERATE PAIN LEVEL 4-6 Last administered on 03/23/18 21:34; Admin Dose 50 MG; Start 03/22/18 at 09:30 Carvedilol (Coreg) 6.25 mg BID PO Last administered on 03/24/18 20:43; Admin Dose 6.25 MG; Start 03/22/18 at 21:00 Bumetanide (Bumex) 1 mg BID DIURETICS PO Last administered on 03/25/18 06:21; Admin Dose 1 MG; Start 03/24/18 at 18:00 Polyethylene Glycol (Miralax) 17 gm BID PO Last administered on 03/24/18at 20:44; Admin Dose 17 GM; Start 03/24/18 at 16:00 Bisacodyl (Dulcolax) 10 mg DAILY PRN PO CONSTIPATION; Start 03/24/18 at 14:30 DALLIN ADAMS NP Mar 25, 2018 07:04
[2018-03-25] MEDS: INSULIN ASPART [NOVOLOG] 3 ML PEN SC SCH ×4 (07:55→21:06)
--- NOTE | 2018-03-25 08:05 | PN ---
Date/Time of Note Date/Time of Note DATE: 03/25/18 TIME: 08:04 Assessment/Plan VTE Prophylaxis Risk score (from Ns)>0 risk: 4 SCD applied ([place] [facility] [place] No SCD contraindicated: other Pharmacological prophylaxis: other Lines/Catheters IV C[facility]ter Type (from [facility] Saline Lock Urinary Cath still in place: No Assessment/Plan Hospital Course SUBJECTIVE: The patient is stable, no events overnight. The patient's shortness of breath is improving. Urinary output has been adequate. OBJECTIVE: HEENT: Head is normocephalic. NECK: Supple. HEART: Regular rate. LUNGS: Show diminished breath sounds at the base. ABDOMEN: Soft, nontender to palpation without rebound or guarding. EXTREMITIES: Negative for clubbing, cyanosis, no edema. DERMATOLOGIC: No rashes. MUSCULOSKELETAL: No joint effusion. NEUROLOGIC: No change in exam. MEDICATIONS: Reviewed. ASSESSMENT AND PLAN: 1. Nonoliguric acute kidney injury on top of chronic kidney disease stage IV with previous baseline creatinine of around 2.5 mg/dL. Etiology of acute kidney injury is likely secondary to hemodynamics, cardiorenal syndrome. The patient's renal function has declined in the last 24 hours. Plan at this point is to escalate diuretic therapy. The patient will be placed on Bumex 1 mg b.i.d. We will monitor renal function, electrolytes closely. Continue supportive care, renally dose all medicines, avoid nephrotoxins. 2. Anemia. Continue to monitor hemoglobin and hematocrit levels. 3. Mineral bone disorder, monitor calcium and phosphorus levels. 4. Chronic kidney disease, stage IV, secondary to hypertension and diabetic nephropathy. The patient is currently in acute kidney injury as stated above. We will continue current medical management. Otherwise, continue disease factor modification. 5. Acute respiratory failure secondary to congestive heart failure exacerbati on. The patient is clinically improving. Continue current diuretic regimen. 6. Arrhythmia. Continue medical management. 7. Hypertension. Continue current blood pressure regimen. 8. Diabetes. Continue current insulin regimen. 9. History of coronary artery disease. 10. Dyslipidemia. Continue statin therapy. Result Diagram: 03/24/18 0552 03/24/18 0552 Results 24hrs Laboratory Tests Test 03/24/18 08:08 03/24/18 12:25 03/24/18 15:30 03/24/18 17:30 Bedside Glucose 164 251 H 235 H Urine Color YELLOW Urine Clarity CLEAR Urine pH 5.0 Urine Specific [place] 1.013 Urine Ketones NEGATIVE Urine Nitrite NEGATIVE Urine Bilirubin NEGATIVE Urine Urobilinogen NEGATIVE Urine Leukocyte Esterase NEGATIVE Urine Microscopic RBC 1 Urine Microscopic WBC 1 Urine Hemoglobin NEGATIVE Urine Random Creatinine 72.02 Urine Random Sodium 24 L Urine Glucose 1+ H Urine Total Protein 254.0 H Test 03/24/18 20:47 03/25/18 02:26 Bedside Glucose 160 95 Exam/Review of Systems Exam Vitals Vital Signs Date Temp Pulse Resp B/P (MAP) Pulse Ox O2 O2 Flow FiO2 Time Delivery Rate 03/25/18 98.0 67 18 148/82 97 07:32 (104) 03/24/18 Nasal 2.0 20:30 Cannula Intake and Output 03/24/18 03/24/18 03/25/18 1515:00 23:00 07:00 IntakeIntake Total 520 ml BalanceBalance 520 ml Results Results 24hrs Laboratory Tests Test 03/24/18 08:08 03/24/18 12:25 03/24/18 15:30 03/24/18 17:30 Bedside Glucose 164 251 H 235 H Urine Color YELLOW Urine Clarity CLEAR Urine pH 5.0 Urine Specific [place] 1.013 Urine Ketones NEGATIVE Urine Nitrite NEGATIVE Urine Bilirubin NEGATIVE Urine Urobilinogen NEGATIVE Urine Leukocyte Esterase NEGATIVE Urine Microscopic RBC 1 Urine Microscopic WBC 1 Urine Hemoglobin NEGATIVE Urine Random Creatinine 72.02 Urine Random Sodium 24 L Urine Glucose 1+ H Urine Total Protein 254.0 H Test 03/24/18 20:47 03/25/18 02:26 Bedside Glucose 160 95 Medications Medication Current Medications Aspirin (Halfprin) 81 mg DAILY PO Last administered on 03/24/18at 08:20; Admin Dose 81 MG; Start 03/21/18 at 09:00 Atorvastatin Calcium (Lipitor) 40 mg QHS PO Last administered on 03/24/18at 20:43; Admin Dose 40 MG; Start 03/20/18 at 21:00 Clopidogrel Bisulfate (plaVIX) 75 mg DAILY PO Last administered on 03/24/18at 0 8:21; Admin Dose 75 MG; Start 03/21/18 at 09:00 Febuxostat (Uloric) 80 mg DAILY PO Last administered on 03/24/18 09:54; Admin Dose 80 MG; Start 03/21/18 at 09:00 Hydralazine HCl (Apresoline) 50 mg BID PO Last administered on 03/24/18 20:44; Admin Dose 50 MG; Start 03/20/18 at 21:00 Isosorbide Mononitrate (Imdur) 30 mg DAILY PO Last administered on 03/24/18 08:26; Admin Dose 30 MG; Start 03/21/18 at 09:00 Fish Oil (Fish Oil) 2,000 mg BID PO Last administered on 03/24/18 20:43; Admin Dose 2,000 MG; Start 03/20/18 at 21:00 IV Flush (NS 3 ml) 3 ml PER PROTOCOL IV ; Start 03/20/18 at 19:30 Pantoprazole (Protonix Tab) 40 mg DAILY@06 PO Last administered on 03/25/18 06:21; Admin Dose 40 MG; Start 03/21/18 at 06:00 Enoxaparin Sodium (Lovenox) 30 mg DAILY SC Last administered on 03/24/18 08:34; Admin Dose 30 MG; Start 03/21/18 at 09:00 Diagnostic Test (Pha) (Accu-Chek) 1 ea 02 XX Last administered on 03/25/18 02:29; Admin Dose 1 EA; Start 03/21/18 at 02:00 Insulin Glargine (Lantus) 40 units DAILY@2000 SC Last administered on 03/24/18 20:50; Admin Dose 40 UNITS; Start 03/20/18 at 20:00 Insulin Aspart (Novolog Insulin Pen) NOVOLOG *MODERATE* ALGORITHM WITH MEALS BEDTIME SC Last administered on 03/24/18 17:48; Admin Dose 6 UNIT; Start 03/20/18 at 21:00 Miscellaneous Information 1 ea NOTE XX ; Start 03/20/18 at 20:00 Glucose (Glutose) 15 gm Q15M PRN PO DECREASED GLUCOSE; Start 03/20/18 at 20:00 Glucose (Glutose) 22.5 gm Q15M PRN PO DECREASED GLUCOSE; Start 03/20/18 at 20:00 Dextrose (D50w Syringe) 25 ml Q15M PRN IV DECREASED GLUCOSE; Start 03/20/18 at 20:00 Dextrose (D50w Syringe) 50 ml Q15M PRN IV DECREASED GLUCOSE; Start 03/20/18 at 20:00 Glucagon (Glucagen) 1 mg Q15M PRN IM DECREASED GLUCOSE; Start 03/20/18 at 20:00 Glucose (Glutose) 15 gm Q15M PRN BUCCAL DECREASED GLUCOSE; Start 03/20/18 at 20:00 Nitroglycerin (Nitroglycerin (Sl Tab) 0.4 Mg) 1 tab PRN PRN SL CHEST PAIN Last administered on 03/21/18 00:20; Admin Dose 1 TAB; Start 03/21/18 at 00:00 Hydralazine HCl (Apresoline) 10 mg Q6H PRN IV SBP>160 Last administered on 03/22/18at 00:28; Admin Dose 10 MG; Start 03/21/18 at 15:00 Tramadol HCl (Ultram) 50 mg Q6H PRN PO MODERATE PAIN LEVEL 4-6 Last administered on 03/23/18at 21:34; Admin Dose 50 MG; Start 03/22/18 at 09:30 Carvedilol (Coreg) 6.25 mg BID PO Last administered on 03/24/18 20:43; Admin Dose 6.25 MG; Start 03/22/18 at 21:00 Bumetanide (Bumex) 1 mg BID DIURETICS PO Last administered on 03/25/18 06:21; Admin Dose 1 MG; Start 03/24/18 at 18:00 Polyethylene Glycol (Miralax) 17 gm BID PO Last administered on 03/24/18at 20:44; Admin Dose 17 GM; Start 03/24/18 at 16:00 Bisacodyl (Dulcolax) 10 mg DAILY PRN PO CONSTIPATION; Start 03/24/18 at 14:30 DEBORAH CHESTER DO Mar 25, 2018 08:05
[2018-03-25] MEDS: ASPIRIN (EC) 81 MG TAB PO SCH (08:45)
[2018-03-25] MEDS: ISOSORBIDE MONONITRATE(SR)30 MG TAB PO SCH (08:45)
[2018-03-25] MEDS: CLOPIDOGREL 75 MG TAB PO SCH (08:45)
[2018-03-25] MEDS: FISH OIL 1,000 MG CAP PO SCH ×2 (08:45→20:58)
[2018-03-25] MEDS: POLYETHYLENE GLYCOL 17 GM PACKET PO SCH ×2 (08:46→20:58)
[2018-03-25] MEDS: ENOXAPARIN 30 MG/0.3 ML SYG SC SCH (08:51)
[2018-03-25] MEDS: FEBUXOSTAT 40 MG TABLET PO SCH (12:38)
[2018-03-25] MEDS: traMADol 50 MG TAB PO PRN (15:56)
--- NOTE | 2018-03-25 16:55 | CONS ---
Assessment/Plan Cardiology NYHA: II Heart Failure Type: Acute on Chronic Assessment/Plan Hospital Course (Demo Recall) Impression: Acute decompensated systolic congestive heart failure, LVEF 30%, clinically improved Ventricular tachycardia Acute kidney injury with history of CKD Hypertension Recommendations: Diuretics as per nephrology Maintain potassium above 4.0 and magnesium above 2.0 Continue beta-blockers heart rate and blood pressure permits Plan for LifeVest and after medical optimization, outpatient electrophysiology evaluation for biV ICD. LifeVest needed prior to discharge Consultation Date/Type/Reason Admit Date/Time Mar 20, 2018 at 19:05 Initial Consult Date Type of Consult Cardiology Date/Time of Note DATE: 03/25/18 TIME: 16:52 24 HR Interval Summary Free Text/Dictation Patient feels well, no chest pain, no dyspnea. Exam/Review of Systems Vital Signs Vitals Vital Signs Date Temp Pulse Resp B/P (MAP) Pulse Ox O2 O2 Flow FiO2 Time Delivery Rate 03/25/18 70 16:17 03/25/18 98.1 18 151/83 94 15:31 (105) 03/24/18 Nasal 2.0 20:30 Cannula Intake and Output 03/24/18 03/24/18 03/25/18 1515:00 23:00 07:00 IntakeIntake Total 520 ml BalanceBalance 520 ml Exam Constitutional: alert, oriented, well developed Psych: nl mood/affect Head: normocephalic, atraumatic Eyes: nl conjunctiva, EOMI, nl lids, nl sclera ENMT: nl external ears & nose, nl lips & teeth, nl nasal mucosa & septum Neck: supple; No jvd, No bruits Respiratory: clear to auscultation, normal air movement Cardiovascular: regular rate and rhythm; No murmurs/extra sounds Gastrointestinal: soft, nl liver, spleen, non-tender Musculoskeletal: nl extremities to inspection Extremities: normal pulses; No edema Neurological: nl mental status, nl speech Skin: No rash or lesions Labs Result Diagram: 03/25/1872203/25/18722 Results 24hrs Laboratory Tests Test 03/24/18 17:30 03/24/18 20:47 03/25/18 02:26 03/25/18 07:23 Bedside Glucose 235 H 160 95 White Blood Count 11.3 H Red Blood Count 3.84 L Hemoglobin 10.7 L Hematocrit 32.7 L Mean Corpuscular Volume 85.2 Mean Corpuscular 27.9 L Hemoglobin Mean Corpuscular 32.7 Hemoglobin Concent Red Cell Distribution 13.1 Width Platelet Count 274 Mean Platelet Volume 11.1 H Immature Granulocytes % 0.400 Neutrophils % 74.4 Lymphocytes % 7.4 L Monocytes % 12.3 H Eosinophils % 4.9 Basophils % 0.6 Nucleated Red Blood 0.0 Cells % Immature Granulocytes # 0.040 H Neutrophils # 8.4 H Lymphocytes # 0.8 Monocytes # 1.4 H Eosinophils # 0.6 H Basophils # 0.1 Nucleated Red Blood 0.0 Cells # Sodium Level 135 Potassium Level 3.8 Chloride Level 95 L Carbon Dioxide Level 25 Anion Gap 15 #H Blood Urea Nitrogen 80 H Creatinine 2.98 H Est Glomerular Filtrat Rate mL/min Glucose Level 58 #L Calcium Level 8.3 L Phosphorus Level 4.1 Magnesium Level 2.3 Test 03/25/18 08:28 03/25/18 12:20 Bedside Glucose 77 239 H Medications Medications Current Medications Aspirin (Halfprin) 81 mg DAILY PO Last administered on 03/25/18 08:45; Admin Dose 81 MG; Start 03/21/18 at 09:00 Atorvastatin Calcium (Lipitor) 40 mg QHS PO Last administered on 03/24/18 20:43; Admin Dose 40 MG; Start 03/20/18 at 21:00 Clopidogrel Bisulfate (plaVIX) 75 mg DAILY PO Last administered on 03/25/18 08:45; Admin Dose 75 MG; Start 03/21/18 at 09:00 Febuxostat (Uloric) 80 mg DAILY PO Last administered on 03/25/18 12:38; Admin Dose 80 MG; Start 03/21/18 at 09:00 Hydralazine HCl (Apresoline) 50 mg BID PO Last administered on 03/25/18 08:45; Admin Dose 50 MG; Start 03/20/18 at 21:00 Isosorbide Mononitrate (Imdur) 30 mg DAILY PO Last administered on 03/25/18 08:45; Admin Dose 30 MG; Start 03/21/18 at 09:00 Fish Oil (Fish Oil) 2,000 mg BID PO Last administered on 03/25/18 08:45; Admin Dose 2,000 MG; Start 03/20/18 at 21:00 IV Flush (NS 3 ml) 3 ml PER PROTOCOL IV ; Start 03/20/18 at 19:30 Pantoprazole (Protonix Tab) 40 mg DAILY@06 PO Last administered on 03/25/18at 06:21; Admin Dose 40 MG; Start 03/21/18 at 06:00 Enoxaparin Sodium (Lovenox) 30 mg DAILY SC Last administered on 03/25/18at 08:51; Admin Dose 30 MG; Start 03/21/18 at 09:00 Diagnostic Test (Pha) (Accu-Chek) 1 ea 02 XX Last administered on 03/25/18at 02:29; Admin Dose 1 EA; Start 03/21/18 at 02:00 Insulin Glargine (Lantus) 40 units DAILY@2000 SC Last administered on 03/24/18at 20:50; Admin Dose 40 UNITS; Start 03/20/18 at 20:00 Insulin Aspart (Novolog Insulin Pen) NOVOLOG *MODERATE* ALGORITHM WITH MEALS BEDTIME SC Last administered on 03/25/18at 12:34; Admin Dose 6 UNIT; Start 03/20/18 at 21:00 Miscellaneous Information 1 ea NOTE XX ; Start 03/20/18 at 20:00 Glucose (Glutose) 15 gm Q15M PRN PO DECREASED GLUCOSE; Start 03/20/18 at 20:00 Glucose (Glutose) 22.5 gm Q15M PRN PO DECREASED GLUCOSE; Start 03/20/18 at 20:00 Dextrose (D50w Syringe) 25 ml Q15M PRN IV DECREASED GLUCOSE; Start 03/20/18 at 20:00 Dextrose (D50w Syringe) 50 ml Q15M PRN IV DECREASED GLUCOSE; Start 03/20/18 at 20:00 Glucagon (Glucagen) 1 mg Q15M PRN IM DECREASED GLUCOSE; Start 03/20/18 at 20:00 Glucose (Glutose) 15 gm Q15M PRN BUCCAL DECREASED GLUCOSE; Start 03/20/18 at 20:00 Nitroglycerin (Nitroglycerin (Sl Tab) 0.4 Mg) 1 tab PRN PRN SL CHEST PAIN Last administered on 03/21/18at 00:20; Admin Dose 1 TAB; Start 03/21/18 at 00:00 Hydralazine HCl (Apresoline) 10 mg Q6H PRN IV SBP>160 Last administered on 03/22/18 00:28; Admin Dose 10 MG; Start 03/21/18 at 15:00 Tramadol HCl (Ultram) 50 mg Q6H PRN PO MODERATE PAIN LEVEL 4-6 Last administered on 03/25/18 15:56; Admin Dose 50 MG; Start 03/22/18 at 09:30 Carvedilol (Coreg) 6.25 mg BID PO Last administered on 03/25/18 08:46; Admin Dose 6.25 MG; Start 03/22/18 at 21:00 Bumetanide (Bumex) 1 mg BID DIURETICS PO Last administered on 03/25/18 06:21; Admin Dose 1 MG; Start 03/24/18 at 18:00 Polyethylene Glycol (Miralax) 17 gm BID PO Last administered on 03/25/18 08:46; Admin Dose 17 GM; Start 03/24/18 at 16:00 Bisacodyl (Dulcolax) 10 mg DAILY PRN PO CONSTIPATION; Start 03/24/18 at 14:30 DELROY DE LEON Mar 25, 2018 16:55
[2018-03-25] MEDS: ATORVASTATIN 40 MG TAB PO SCH (20:57)
[2018-03-25] MEDS: INSULIN GLARGINE [LANTus] (100 UNITS/ML) SYG SC SCH (21:05)
[2018-03-26] VITALS (9 sets, daily range): BP systolic 143–169; BP diastolic 67–82; PULSE 64–77; RESP 18–20
[2018-03-26] MEDS: traMADol 50 MG TAB PO PRN ×3 (00:01→23:46)
[2018-03-26] MEDS: ACCU-CHEK XX SCH (02:32)
[2018-03-26] MEDS: PANTOPRAZOLE (EC) 40 MG TAB PO SCH (05:26)
[2018-03-26] MEDS: BUMETANIDE 1 MG TAB PO SCH ×2 (05:26→08:50)
[2018-03-26] MEDS: GLUCOSE GEL 15 GRAM TUBE PO PRN ×2 (06:19→06:42)
--- NOTE | 2018-03-26 07:36 | PN ---
Date/Time of Note Date/Time of Note DATE: 03/26/18 TIME: 07:36 Assessment/Plan VTE Prophylaxis Risk score (from Ns)>0 risk: 3 SCD applied (from [facility] [place]): No SCD contraindicated: other Pharmacological prophylaxis: other Lines/Catheters [facility] Type (from [facility] Saline Lock Urinary Cath still in place: No Assessment/Plan Hospital Course SUBJECTIVE: The patient is stable, no events overnight. The patient's shortness of breath is improving. Urinary output has been adequate. OBJECTIVE: HEENT: Head is normocephalic. NECK: Supple. HEART: Regular rate. LUNGS: Show diminished breath sounds at the base. ABDOMEN: Soft, nontender to palpation without rebound or guarding. EXTREMITIES: Negative for clubbing, cyanosis, no edema. DERMATOLOGIC: No rashes. MUSCULOSKELETAL: No joint effusion. NEUROLOGIC: No change in exam. MEDICATIONS: Reviewed. ASSESSMENT AND PLAN: 1. Nonoliguric acute kidney injury on top of chronic kidney disease stage IV with previous baseline creatinine of around 2.5 mg/dL. Etiology of acute kidney injury is likely secondary to hemodynamics, cardiorenal syndrome. The patient's renal function has declined in the last 24 hours. will decrease bumex. We will monitor renal function, electrolytes closely. Continue supportive care, renally dose all medicines, avoid nephrotoxins. 2. Anemia. Continue to monitor hemoglobin and hematocrit levels. 3. Mineral bone disorder, monitor calcium and phosphorus levels. 4. Chronic kidney disease, stage IV, secondary to hypertension and diabetic nephropathy. The patient is currently in acute kidney injury as stated above. We will continue current medical management. Otherwise, continue disease factor modification. 5. Acute respiratory failure secondary to congestive heart failure exacerbation. The patient is clinically improving. Continue current diuretic regimen. 6. Arrhythmia. Continue medical management. 7. Hypertension. Continue current blood pressure regimen. 8. Diabetes. Continue current insulin regimen. 9. History of coronary artery disease. 10. Dyslipidemia. Continue statin therapy. Result Diagram: 03/26/18 0536 03/26/18 0536 Results 24hrs Laboratory Tests Test 03/25/18 08:28 03/25/18 12:20 03/25/18 17:27 03/25/18 20:51 Bedside Glucose 77 239 H 123 211 Test 03/26/18 00:05 03/26/18 02:35 03/26/18 05:36 03/26/18 06:13 Urine Random 29.18 Creatinine Urine Random Sodium 75 Urine Total Protein 85.0 H Bedside Glucose 76 61 L White Blood Count 8.3 # Red Blood Count 3.71 L Hemoglobin 10.3 L Hematocrit 31.5 L Mean Corpuscular 84.9 Volume Mean Corpuscular 27.8 L Hemoglobin Mean Corpuscular 32.7 Hemoglobin Concent Red Cell 12.9 Distribution Width Platelet Count 273 Mean Platelet Volume 11.1 H Immature 0.500 H Granulocytes % Neutrophils % 69.2 Lymphocytes % 9.8 L Monocytes % 14.3 H Eosinophils % 5.7 Basophils % 0.5 Nucleated Red Blood 0.0 Cells % Immature 0.040 H Granulocytes # Neutrophils # 5.7 Lymphocytes # 0.8 Monocytes # 1.2 H Eosinophils # 0.5 Basophils # 0.0 Nucleated Red Blood 0.0 Cells # Sodium Level 136 Potassium Level 3.9 Chloride Level 96 L Carbon Dioxide Level 30 Anion Gap 10 # Blood Urea Nitrogen 92 H Creatinine 3.52 H Est Glomerular Filtrat Rate mL/min Glucose Level 69 #L Calcium Level 8.9 Phosphorus Level 4.4 Magnesium Level 2.3 Test 03/26/18 06:39 03/26/18 07:02 Bedside Glucose 74 107 Exam/Review of Systems Exam Vitals Vital Signs Date Temp Pulse Resp B/P (MAP) Pulse Ox O2 O2 Flow FiO2 Time Delivery Rate 03/26/18 Nasal 2.0 07:27 Cannula 03/26/18 98.5 72 18 151/73 96 04:00 (99) Intake and Output 03/25/18 03/25/18 03/26/18 1414:59 22:59 06:59 IntakeIntake Total 240 ml 750 ml 700 ml OutputOutput Total 700 ml 1000 ml 1200 ml BalanceBalance -460 ml -250 ml -500 ml Results Results 24hrs Laboratory Tests Test 03/25/18 08:28 03/25/18 12:20 03/25/18 17:27 03/25/18 20:51 Bedside Glucose 77 239 H 123 211 Test 03/26/18 00:05 03/26/18 02:35 03/26/18 05:36 03/26/18 06:13 Urine Random 29.18 Creatinine Urine Random Sodium 75 Urine Total Protein 85.0 H Bedside Glucose 76 61 L White Blood Count 8.3 # Red Blood Count 3.71 L Hemoglobin 10.3 L Hematocrit 31.5 L Mean Corpuscular 84.9 Volume Mean Corpuscular 27.8 L Hemoglobin Mean Corpuscular 32.7 Hemoglobin Concent Red Cell 12.9 Distribution Width Platelet Count 273 Mean Platelet Volume 11.1 H Immature 0.500 H Granulocytes % Neutrophils % 69.2 Lymphocytes % 9.8 L Monocytes % 14.3 H Eosinophils % 5.7 Basophils % 0.5 Nucleated Red Blood 0.0 Cells % Immature 0.040 H Granulocytes # Neutrophils # 5.7 Lymphocytes # 0.8 Monocytes # 1.2 H Eosinophils # 0.5 Basophils # 0.0 Nucleated Red Blood 0.0 Cells # Sodium Level 136 Potassium Level 3.9 Chloride Level 96 L Carbon Dioxide Level 30 Anion Gap 10 # Blood Urea Nitrogen 92 H Creatinine 3.52 H Est Glomerular Filtrat Rate mL/min Glucose Level 69 #L Calcium Level 8.9 Phosphorus Level 4.4 Magnesium Level 2.3 Test 03/26/18 06:39 03/26/18 07:02 Bedside Glucose 74 107 Medications Medication Current Medications Aspirin (Halfprin) 81 mg DAILY PO Last administered on 03/25/18 08:45; Admin Dose 81 MG; Start 03/21/18 at 09:00 Atorvastatin Calcium (Lipitor) 40 mg QHS PO Last administered on 03/25/18 20:57; Admin Dose 40 MG; Start 03/20/18 at 21:00 Clopidogrel Bisulfate (plaVIX) 75 mg DAILY PO Last administered on 03/25/18 08:45; Admin Dose 75 MG; Start 03/21/18 at 09:00 Febuxostat (Uloric) 80 mg DAILY PO Last administered on 03/25/18 12:38; Admin Dose 80 MG; Start 03/21/18 at 09:00 Hydralazine HCl (Apresoline) 50 mg BID PO Last administered on 03/25/18 20:58; Admin Dose 50 MG; Start 03/20/18 at 21:00 Isosorbide Mononitrate (Imdur) 30 mg DAILY PO Last administered on 03/25/18 0 8:45; Admin Dose 30 MG; Start 03/21/18 at 09:00 Fish Oil (Fish Oil) 2,000 mg BID PO Last administered on 03/25/18 20:58; Admin Dose 2,000 MG; Start 03/20/18 at 21:00 IV Flush (NS 3 ml) 3 ml PER PROTOCOL IV ; Start 03/20/18 at 19:30 Pantoprazole (Protonix Tab) 40 mg DAILY@06 PO Last administered on 03/26/18at 05:26; Admin Dose 40 MG; Start 03/21/18 at 06:00 Enoxaparin Sodium (Lovenox) 30 mg DAILY SC Last administered on 03/25/18at 08:51; Admin Dose 30 MG; Start 03/21/18 at 09:00 Diagnostic Test (Pha) (Accu-Chek) 1 ea 02 XX Last administered on 03/26/18at 02:32; Admin Dose 1 EA; Start 03/21/18 at 02:00 Insulin Glargine (Lantus) 40 units DAILY@2000 SC Last administered on 03/25/18at 21:05; Admin Dose 40 UNITS; Start 03/20/18 at 20:00 Insulin Aspart (Novolog Insulin Pen) NOVOLOG *MODERATE* ALGORITHM WITH MEALS BEDTIME SC Last administered on 03/25/18at 21:06; Admin Dose 1 UNIT; Start 03/20/18 at 21:00 Miscellaneous Information 1 ea NOTE XX ; Start 03/20/18 at 20:00 Glucose (Glutose) 15 gm Q15M PRN PO DECREASED GLUCOSE Last administered on 03/26/18at 06:42; Admin Dose 15 GM; Start 03/20/18 at 20:00 Glucose (Glutose) 22.5 gm Q15M PRN PO DECREASED GLUCOSE; Start 03/20/18 at 20:00 Dextrose (D50w Syringe) 25 ml Q15M PRN IV DECREASED GLUCOSE; Start 03/20/18 at 20:00 Dextrose (D50w Syringe) 50 ml Q15M PRN IV DECREASED GLUCOSE; Start 03/20/18 at 20:00 Glucagon (Glucagen) 1 mg Q15M PRN IM DECREASED GLUCOSE; Start 03/20/18 at 20:00 Glucose (Glutose) 15 gm Q15M PRN BUCCAL DECREASED GLUCOSE; Start 03/20/18 at 20:00 Nitroglycerin (Nitroglycerin (Sl Tab) 0.4 Mg) 1 tab PRN PRN SL CHEST PAIN Last administered on 03/21/18at 00:20; Admin Dose 1 TAB; Start 03/21/18 at 00:00 Hydralazine HCl (Apresoline) 10 mg Q6H PRN IV SBP>160 Last administered on 03/22/18 00:28; Admin Dose 10 MG; Start 03/21/18 at 15:00 Tramadol HCl (Ultram) 50 mg Q6H PRN PO MODERATE PAIN LEVEL 4-6 Last administered on 03/26/18 00:01; Admin Dose 50 MG; Start 03/22/18 at 09:30 Carvedilol (Coreg) 6.25 mg BID PO Last administered on 03/25/18 20:58; Admin Dose 6.25 MG; Start 03/22/18 at 21:00 Bumetanide (Bumex) 1 mg BID DIURETICS PO Last administered on 03/26/18 05:26; Admin Dose 1 MG; Start 03/24/18 at 18:00 Polyethylene Glycol (Miralax) 17 gm BID PO Last administered on 03/25/18 20:58; Admin Dose 17 GM; Start 03/24/18 at 16:00 Bisacodyl (Dulcolax) 10 mg DAILY PRN PO CONSTIPATION; Start 03/24/18 at 14:30 DEBORAH CHESTER DO Mar 26, 2018 07:36
[2018-03-26] MEDS: INSULIN ASPART [NOVOLOG] 3 ML PEN SC SCH ×4 (07:55→20:36)
[2018-03-26] MEDS: ISOSORBIDE MONONITRATE(SR)30 MG TAB PO SCH (08:04)
[2018-03-26] MEDS: ASPIRIN (EC) 81 MG TAB PO SCH (08:04)
[2018-03-26] MEDS: CLOPIDOGREL 75 MG TAB PO SCH (08:04)
[2018-03-26] MEDS: FISH OIL 1,000 MG CAP PO SCH ×2 (08:05→20:25)
[2018-03-26] MEDS: POLYETHYLENE GLYCOL 17 GM PACKET PO SCH ×2 (08:05→20:26)
[2018-03-26] MEDS: ENOXAPARIN 30 MG/0.3 ML SYG SC SCH (08:07)
[2018-03-26] MEDS: FEBUXOSTAT 40 MG TABLET PO SCH (08:50)
--- NOTE | 2018-03-26 09:39 | PN ---
Date/Time of Note Date/Time of Note DATE: 03/26/18 TIME: 09:39 Assessment/Plan VTE Prophylaxis Risk score (from Ns)>0 risk: 4 [place] [facility] [place] contraindicated: other Pharmacological prophylaxis: LMWH Lines/Catheters [facility] Type (from [facility] Saline Lock Urinary Cath still in place: No Assessment/Plan Hospital Course SUBJECTIVE: Denies any dyspnea or chest pain. OBJECTIVE: Physical Exam General: Obese 72 year-old male lying in bed in no apparent distress. HEENT: Normocephalic, atraumatic. Eyes: Anicteric sclerae, conjunctivae clear. ENT: Nasal septum midline, oral mucosa moist. Neck supple. JVD noticed. Respiratory: Bilaterally diminished breath sounds. Bilateral rales at the bases. Cardiovascular: S1, S2 heard. Regular rate and rhythm. Abdomen: Soft, nontender, and nondistended. Bowel sounds positive in all 4 quadrants. Genitourinary: Deferred. Extremities: No cyanosis, no clubbing. Trace B/L pedal edema. Peripheral pulses palpable. Neurologic: Cranial nerves II through XII grossly intact. The patient is awake, alert, and oriented. Skin: Normal skin turgor. No skin rashes Labs & Vitals per chart ASSESSMENT & PLAN This is a 72-year-old male with past medical history of essential hypertension, CAD status post coronary artery stenting, type 2 diabetes mellitus, cardiomyopathy, benign prostatic hypertrophy, and chronic kidney disease who came to the emergency room with chief complaint of sudden onset of dyspnea, productive cough, and elevated blood pressure readings at home. 1. Acute respiratory failure. -Hypoxic. -Most probably secondary to underlying CHF exacerbation. -Continue diuresis. 2. Congestive heart failure exacerbation. -Acute on chronic systolic dysfunction. -Continue diuresis. 3. Sustained VT on 03/22/2018. -Converted to sinus rhythm. -Cardiology evaluation ongoing. 4. Cardiomyopathy. -Ejection fraction of 30%. -Continue beta-blockers and nitrates. 5. Hypertensive urgency. -The patient will be continued on his antihypertensives. -The patient will also be continued on PRN antihypertensives for any systolic blood pressures greater than 160 mmHg. 6. Type 2 diabetes mellitus. -The patient will be continued on sliding scale insulin along with pre-meal insulin and basal insulin. -Hemoglobin A1c 11.6. 7. CAD. Status post coronary artery stenting. -The patient will be continued on antiplatelet therapy. 8. Chronic kidney disease. -Nephrotoxic drugs will be used with caution. -The patient's BUN and creatinine will be monitored closely. -Nephrology following. 9. Gout. -The patient will be continued on xanthine oxidase inhibitors (Febuxostat). 10. Dyslipidemia. -Continue statins and fish oil. 11. Fluids, electrolytes, and nutrition. -Carbohydrate controlled diet. 12. DVT prophylaxis. -Subcutaneous Lovenox (renal dose). 13. Plan. -Continue diuresis while carefully monitoring renal function. -Needs LifeVest prior to discharge as per cardiology. The patient was seen in collaboration with Dr. Russell. Result Diagram: 03/26/1836 03/26/1836 Results 24hrs Laboratory Tests Test 03/25/18 12:20 03/25/18 17:27 03/25/18 20:51 03/26/18 00:05 Bedside Glucose 239 H 123 211 Urine Random 29.18 Creatinine Urine Random Sodium 75 Urine Total Protein 85.0 H Test 03/26/18 02:35 03/26/18 05:36 03/26/18 06:13 03/26/18 06:39 Bedside Glucose 76 61 L 74 White Blood Count 8.3 # Red Blood Count 3.71 L Hemoglobin 10.3 L Hematocrit 31.5 L Mean Corpuscular 84.9 Volume Mean Corpuscular 27.8 L Hemoglobin Mean Corpuscular 32.7 Hemoglobin Concent Red Cell 12.9 Distribution Width Platelet Count 273 Mean Platelet Volume 11.1 H Immature 0.500 H Granulocytes % Neutrophils % 69.2 Lymphocytes % 9.8 L Monocytes % 14.3 H Eosinophils % 5.7 Basophils % 0.5 Nucleated Red Blood 0.0 Cells % Immature 0.040 H Granulocytes # Neutrophils # 5.7 Lymphocytes # 0.8 Monocytes # 1.2 H Eosinophils # 0.5 Basophils # 0.0 Nucleated Red Blood 0.0 Cells # Sodium Level 136 Potassium Level 3.9 Chloride Level 96 L Carbon Dioxide Level 30 Anion Gap 10 # Blood Urea Nitrogen 92 H Creatinine 3.52 H Est Glomerular Filtrat Rate mL/min Glucose Level 69 #L Calcium Level 8.9 Phosphorus Level 4.4 Magnesium Level 2.3 Test 03/26/18 07:02 03/26/18 08:02 Bedside Glucose 107 107 Exam/Review of Systems Exam Vitals Vital Signs Date Temp Pulse Resp B/P (MAP) Pulse Ox O2 O2 Flow FiO2 Time Delivery Rate 03/26/18 77 08:21 03/26/18 98.8 18 143/70 95 07:55 (94) 03/26/18 Nasal 2.0 07:27 Cannula Intake and Output 03/25/18 03/25/18 03/26/18 1515:00 23:00 07:00 IntakeIntake Total 240 ml 750 ml 700 ml OutputOutput Total 700 ml 1000 ml 1200 ml BalanceBalance -460 ml -250 ml -500 ml Results Results 24hrs Laboratory Tests Test 03/25/18 12:20 03/25/18 17:27 03/25/18 20:51 03/26/18 00:05 Bedside Glucose 239 H 123 211 Urine Random 29.18 Creatinine Urine Random Sodium 75 Urine Total Protein 85.0 H Test 03/26/18 02:35 03/26/18 05:36 03/26/18 06:13 03/26/18 06:39 Bedside Glucose 76 61 L 74 White Blood Count 8.3 # Red Blood Count 3.71 L Hemoglobin 10.3 L Hematocrit 31.5 L Mean Corpuscular 84.9 Volume Mean Corpuscular 27.8 L Hemoglobin Mean Corpuscular 32.7 Hemoglobin Concent Red Cell 12.9 Distribution Width Platelet Count 273 Mean Platelet Volume 11.1 H Immature 0.500 H Granulocytes % Neutrophils % 69.2 Lymphocytes % 9.8 L Monocytes % 14.3 H Eosinophils % 5.7 Basophils % 0.5 Nucleated Red Blood 0.0 Cells % Immature 0.040 H Granulocytes # Neutrophils # 5.7 Lymphocytes # 0.8 Monocytes # 1.2 H Eosinophils # 0.5 Basophils # 0.0 Nucleated Red Blood 0.0 Cells # Sodium Level 136 Potassium Level 3.9 Chloride Level 96 L Carbon Dioxide Level 30 Anion Gap 10 # Blood Urea Nitrogen 92 H Creatinine 3.52 H Est Glomerular Filtrat Rate mL/min Glucose Level 69 #L Calcium Level 8.9 Phosphorus Level 4.4 Magnesium Level 2.3 Test 03/26/18 07:02 03/26/18 08:02 Bedside Glucose 107 107 Medications Medication Current Medications Aspirin (Halfprin) 81 mg DAILY PO Last administered on 03/26/18at 08:04; Admin Dose 81 MG; Start 03/21/18 at 09:00 Atorvastatin Calcium (Lipitor) 40 mg QHS PO Last administered on 03/25/18 20:57; Admin Dose 40 MG; Start 03/20/18 at 21:00 Clopidogrel Bisulfate (plaVIX) 75 mg DAILY PO Last administered on 03/26/18 08:04; Admin Dose 75 MG; Start 03/21/18 at 09:00 Febuxostat (Uloric) 80 mg DAILY PO Last administered on 03/26/18 08:50; Admin Dose 80 MG; Start 03/21/18 at 09:00 Hydralazine HCl (Apresoline) 50 mg BID PO Last administered on 03/26/18 08:05; Admin Dose 50 MG; Start 03/20/18 at 21:00 Isosorbide Mononitrate (Imdur) 30 mg DAILY PO Last administered on 03/26/18 08:04; Admin Dose 30 MG; Start 03/21/18 at 09:00 Fish Oil (Fish Oil) 2,000 mg BID PO Last administered on 03/26/18 08:05; Admin Dose 2,000 MG; Start 03/20/18 at 21:00 IV Flush (NS 3 ml) 3 ml PER PROTOCOL IV ; Start 03/20/18 at 19:30 Pantoprazole (Protonix Tab) 40 mg DAILY@06 PO Last administered on 03/26/18 05:26; Admin Dose 40 MG; Start 03/21/18 at 06:00 Enoxaparin Sodium (Lovenox) 30 mg DAILY SC Last administered on 03/26/18 08:07; Admin Dose 30 MG; Start 03/21/18 at 09:00 Diagnostic Test (Pha) (Accu-Chek) 1 ea 02 XX Last administered on 03/26/18 02:32; Admin Dose 1 EA; Start 03/21/18 at 02:00 Insulin Glargine (Lantus) 40 units DAILY@2000 SC Last administered on 03/25/18 21:05; Admin Dose 40 UNITS; Start 03/20/18 at 20:00 Insulin Aspart (Novolog Insulin Pen) NOVOLOG *MODERATE* ALGORITHM WITH MEALS BEDTIME SC Last administered on 03/25/18 21:06; Admin Dose 1 UNIT; Start 03/20 at 21:00 Miscellaneous Information 1 ea NOTE XX ; Start 03/20/18 at 20:00 Glucose (Glutose) 15 gm Q15M PRN PO DECREASED GLUCOSE Last administered on 03/26/18at 06:42; Admin Dose 15 GM; Start 03/20/18 at 20:00 Glucose (Glutose) 22.5 gm Q15M PRN PO DECREASED GLUCOSE; Start 03/20/18 at 20:00 Dextrose (D50w Syringe) 25 ml Q15M PRN IV DECREASED GLUCOSE; Start 03/20/18 at 20:00 Dextrose (D50w Syringe) 50 ml Q15M PRN IV DECREASED GLUCOSE; Start 03/20/18 at 20:00 Glucagon (Glucagen) 1 mg Q15M PRN IM DECREASED GLUCOSE; Start 03/20/18 at 20:00 Glucose (Glutose) 15 gm Q15M PRN BUCCAL DECREASED GLUCOSE; Start 03/20/18 at 20:00 Nitroglycerin (Nitroglycerin (Sl Tab) 0.4 Mg) 1 tab PRN PRN SL CHEST PAIN Last administered on 03/21/18at 00:20; Admin Dose 1 TAB; Start 03/21/18 at 00:00 Hydralazine HCl (Apresoline) 10 mg Q6H PRN IV SBP>160 Last administered on 03/22/18at 00:28; Admin Dose 10 MG; Start 03/21/18 at 15:00 Tramadol HCl (Ultram) 50 mg Q6H PRN PO MODERATE PAIN LEVEL 4-6 Last administered on 03/26/18at 00:01; Admin Dose 50 MG; Start 03/22/18 at 09:30 Carvedilol (Coreg) 6.25 mg BID PO Last administered on 03/26/18at 08:05; Admin Dose 6.25 MG; Start 03/22/18 at 21:00 Polyethylene Glycol (Miralax) 17 gm BID PO Last administered on 03/26/18at 08:05; Admin Dose 17 GM; Start 03/24/18 at 16:00 Bisacodyl (Dulcolax) 10 mg DAILY PRN PO CONSTIPATION Last administered on 03/26/18at 08:04; Admin Dose 10 MG; Start 03/24/18 at 14:30 Bumetanide (Bumex) 1 mg DAILY PO Last administered on 03/26/18at 08:50; Admin Dose 1 MG; Start 03/26/18 at 09:00 DALLIN ADAMS NP Mar 26, 2018 09:39
[2018-03-26] MEDS ORDERED: POTASSIUM CHLORIDE (SR) 20 MEQ TAB PO STA (15:19)
--- NOTE | 2018-03-26 15:21 | CONS ---
Assessment/Plan Cardiology NYHA: II Heart Failure Type: Acute on Chronic Assessment/Plan Hospital Course (Demo Recall) Impression: Acute decompensated systolic congestive heart failure, LVEF 30%, clinically improved Ventricular tachycardia, stable at present Acute kidney injury with history of CKD, now worsening renal function Hypertension Recommendations: Diuretics as per nephrology Maintain potassium above 4.0 and magnesium above 2.0, will replete K today with 20 meq po Continue beta-blockers heart rate and blood pressure permits Plan for LifeVest and after medical optimization, outpatient electrophysiology evaluation for biV ICD. LifeVest needed prior to discharge Consultation Date/Type/Reason Admit Date/Time Mar 20, 2018 at 19:05 Initial Consult Date Type of Consult Cardiology Date/Time of Note DATE: 03/26/18 TIME: 15:18 24 HR Interval Summary Free Text/Dictation No events overnight, K 3.9, no chest pain, no dyspnea, patient has walked just a bit within his room. Exam/Review of Systems Vital Signs Vitals Vital Signs Date Temp Pulse Resp B/P (MAP) Pulse Ox O2 O2 Flow FiO2 Time Delivery Rate 03/26/18 66 12:41 03/26/18 97.9 18 146/81 93 12:22 (102) 03/26/18 Nasal 2.0 07:27 Cannula Intake and Output 03/25/18 03/25/18 03/26/18 1515:00 23:00 07:00 IntakeIntake Total 240 ml 750 ml 700 ml OutputOutput Total 700 ml 1000 ml 1200 ml BalanceBalance -460 ml -250 ml -500 ml Exam Constitutional: alert, oriented, well developed Psych: nl mood/affect Head: normocephalic, atraumatic Eyes: nl conjunctiva, EOMI, nl lids, nl sclera ENMT: nl external ears & nose, nl lips & teeth, nl nasal mucosa & septum Neck: supple; No jvd, No bruits Respiratory: clear to auscultation, normal air movement Cardiovascular: regular rate and rhythm; No murmurs/extra sounds Gastrointestinal: soft, nl liver, spleen, non-tender Musculoskeletal: nl extremities to inspection Extremities: No edema Neurological: nl mental status, nl speech Skin: No rash or lesions Labs Result Diagram: 03/26/18 0536 03/26/18 0536 Results 24hrs Laboratory Tests Test 03/25/18 17:27 03/25/18 20:51 03/26/18 00:05 03/26/18 02:35 Bedside Glucose 123 211 76 Urine Random 29.18 Creatinine Urine Random Sodium 75 Urine Total Protein 85.0 H Test 03/26/18 05:36 03/26/18 06:13 03/26/18 06:39 03/26/18 07:02 White Blood Count 8.3 # Red Blood Count 3.71 L Hemoglobin 10.3 L Hematocrit 31.5 L Mean Corpuscular 84.9 Volume Mean Corpuscular 27.8 L Hemoglobin Mean Corpuscular 32.7 Hemoglobin Concent Red Cell 12.9 Distribution Width Platelet Count 273 Mean Platelet Volume 11.1 H Immature 0.500 H Granulocytes % Neutrophils % 69.2 Lymphocytes % 9.8 L Monocytes % 14.3 H Eosinophils % 5.7 Basophils % 0.5 Nucleated Red Blood 0.0 Cells % Immature 0.040 H Granulocytes # Neutrophils # 5.7 Lymphocytes # 0.8 Monocytes # 1.2 H Eosinophils # 0.5 Basophils # 0.0 Nucleated Red Blood 0.0 Cells # Sodium Level 136 Potassium Level 3.9 Chloride Level 96 L Carbon Dioxide Level 30 Anion Gap 10 # Blood Urea Nitrogen 92 H Creatinine 3.52 H Est Glomerular Filtrat Rate mL/min Glucose Level 69 #L Calcium Level 8.9 Phosphorus Level 4.4 Magnesium Level 2.3 Bedside Glucose 61 L 74 107 Test 03/26/18 08:02 03/26/18 12:08 Bedside Glucose 107 165 Medications Medications Current Medications Aspirin (Halfprin) 81 mg DAILY PO Last administered on 03/26/18 08:04; Admin Dose 81 MG; Start 03/21/18 at 09:00 Atorvastatin Calcium (Lipitor) 40 mg QHS PO Last administered on 03/25/18at 20:57; Admin Dose 40 MG; Start 03/20/18 at 21:00 Clopidogrel Bisulfate (plaVIX) 75 mg DAILY PO Last administered on 03/26/18 08:04; Admin Dose 75 MG; Start 03/21/18 at 09:00 Febuxostat (Uloric) 80 mg DAILY PO Last administered on 03/26/18 08:50; Admin Dose 80 MG; Start 03/21/18 at 09:00 Hydralazine HCl (Apresoline) 50 mg BID PO Last administered on 2/10/19at 08:05; Admin Dose 50 MG; Start 03/20/18 at 21:00 Isosorbide Mononitrate (Imdur) 30 mg DAILY PO Last administered on 03/26/18at 08:04; Admin Dose 30 MG; Start 03/21/18 at 09:00 Fish Oil (Fish Oil) 2,000 mg BID PO Last administered on 03/26/18 08:05; Admin Dose 2,000 MG; Start 03/20/18 at 21:00 IV Flush (NS 3 ml) 3 ml PER PROTOCOL IV ; Start 03/20/18 at 19:30 Pantoprazole (Protonix Tab) 40 mg DAILY@06 PO Last administered on 03/26/18 05:26; Admin Dose 40 MG; Start 03/21/18 at 06:00 Enoxaparin Sodium (Lovenox) 30 mg DAILY SC Last administered on 03/26/18at 0 8:07; Admin Dose 30 MG; Start 03/21/18 at 09:00 Diagnostic Test (Pha) (Accu-Chek) 1 ea 02 XX Last administered on 03/26/18at 02:32; Admin Dose 1 EA; Start 03/21/18 at 02:00 Insulin Glargine (Lantus) 40 units DAILY@2000 SC Last administered on 03/25/18 21:05; Admin Dose 40 UNITS; Start 03/20/18 at 20:00 Insulin Aspart (Novolog Insulin Pen) NOVOLOG *MODERATE* ALGORITHM WITH MEALS BEDTIME SC Last administered on 03/26/18at 12:13; Admin Dose 2 UNIT; Start 03/20/18 at 21:00 Miscellaneous Information 1 ea NOTE XX ; Start 03/20/18 at 20:00 Glucose (Glutose) 15 gm Q15M PRN PO DECREASED GLUCOSE Last administered on 03/26/18at 06:42; Admin Dose 15 GM; Start 03/20/18 at 20:00 Glucose (Glutose) 22.5 gm Q15M PRN PO DECREASED GLUCOSE; Start 03/20/18 at 20:00 Dextrose (D50w Syringe) 25 ml Q15M PRN IV DECREASED GLUCOSE; Start 03/20/18 at 20:00 Dextrose (D50w Syringe) 50 ml Q15M PRN IV DECREASED GLUCOSE; Start 03/20/18 at 20:00 Glucagon (Glucagen) 1 mg Q15M PRN IM DECREASED GLUCOSE; Start 03/20/18 at 20:00 Glucose (Glutose) 15 gm Q15M PRN BUCCAL DECREASED GLUCOSE; Start 03/20/18 at 20:00 Nitroglycerin (Nitroglycerin (Sl Tab) 0.4 Mg) 1 tab PRN PRN SL CHEST PAIN Last administered on 03/21/18at 00:20; Admin Dose 1 TAB; Start 03/21/18 at 00:00 Hydralazine HCl (Apresoline) 10 mg Q6H PRN IV SBP>160 Last administered on 03/22/18at 00:28; Admin Dose 10 MG; Start 03/21/18 at 15:00 Tramadol HCl (Ultram) 50 mg Q6H PRN PO MODERATE PAIN LEVEL 4-6 Last administered on 03/26/18at 00:01; Admin Dose 50 MG; Start 03/22/18 at 09:30 Carvedilol (Coreg) 6.25 mg BID PO Last administered on 03/26/18 08:05; Admin Dose 6.25 MG; Start 03/22/18 at 21:00 Polyethylene Glycol (Miralax) 17 gm BID PO Last administered on 03/26/18 08:05; Admin Dose 17 GM; Start 03/24/18 at 16:00 Bisacodyl (Dulcolax) 10 mg DAILY PRN PO CONSTIPATION Last administered on 03/26/18 08:04; Admin Dose 10 MG; Start 03/24/18 at 14:30 Bumetanide (Bumex) 1 mg DAILY PO Last administered on 03/26/18 08:50; Admin Dose 1 MG; Start 03/26/18 at 09:00 DELROY DE LEON Mar 26, 2018 15:21
[2018-03-26] MEDS: ATORVASTATIN 40 MG TAB PO SCH (20:25)
[2018-03-26] MEDS: INSULIN GLARGINE [LANTus] (100 UNITS/ML) SYG SC SCH (20:35)
[2018-03-27] VITALS (11 sets, daily range): BP systolic 124–171; BP diastolic 59–84; PULSE 60–98; RESP 18–20
[2018-03-27] MEDS: ACCU-CHEK XX SCH (02:00)
[2018-03-27] MEDS: GLUCOSE GEL 15 GRAM TUBE PO PRN (05:35)
[2018-03-27] MEDS: PANTOPRAZOLE (EC) 40 MG TAB PO SCH (06:03)
[2018-03-27] MEDS: INSULIN ASPART [NOVOLOG] 3 ML PEN SC SCH ×4 (07:55→21:39)
[2018-03-27] MEDS: ASPIRIN (EC) 81 MG TAB PO SCH (08:39)
[2018-03-27] MEDS: ISOSORBIDE MONONITRATE(SR)30 MG TAB PO SCH (08:40)
[2018-03-27] MEDS: CLOPIDOGREL 75 MG TAB PO SCH (08:40)
[2018-03-27] MEDS: FISH OIL 1,000 MG CAP PO SCH ×2 (08:40→21:25)
[2018-03-27] MEDS: POLYETHYLENE GLYCOL 17 GM PACKET PO SCH ×2 (08:41→21:26)
[2018-03-27] MEDS: ENOXAPARIN 30 MG/0.3 ML SYG SC SCH (09:20)
--- NOTE | 2018-03-27 09:46 | PN ---
DATE: 03/27/2018 SUBJECTIVE: The patient had no acute events overnight. No hemoptysis, hematemesis, or hematochezia. The patient continues to have a cough. OBJECTIVE: VITAL SIGNS: Blood pressure is 161/78, respiration 18, pulse 70, temperature 98.4. HEENT: Head is normocephalic. NECK: Supple. HEART: Regular rate. LUNGS: Show diminished breath sounds at the base. ABDOMEN: Soft, nontender to palpation without rebound or guarding. EXTREMITIES: Negative for clubbing, cyanosis, no edema. DERMATOLOGIC: No rashes. MUSCULOSKELETAL: No joint effusions. NEUROLOGIC: No change in exam. MEDICATIONS: Reviewed. LABORATORY DATA: Shows sodium 138, potassium 4.4, bicarb 34, BUN 93, creatinine 3.57. White count 7 .4, hemoglobin 10.9, platelet count is 297. ASSESSMENT AND PLAN: 1. Nonoliguric acute kidney injury on top of chronic kidney disease stage IV with previous baseline creatinine of around 2.5 to 2.7 mg/dL. Etiology of acute kidney injury is secondary to hemodynamics, cardiorenal syndrome. The patient appears euvolemic on exam. At this point, we will hold diuretic therapy as the patient has had progressive azotemia and creatinine is increased to 3.5 mg/dL. We kelsey l otherwise continue current treatment plan, supportive care, renally dose all medicines. 2. Anemia. Monitor hemoglobin and hematocrit levels. 3. Mineral bone disorder. Monitor calcium and phosphorus levels. 4. Chronic kidney disease stage IV secondary to hypertension and diabetic nephropathy. The patient is currently in acute kidney injury as stated above. Continue current medical management. Otherwise , disease factor modification. 5. Acute respiratory failure secondary to congestive heart failure. The patient is clinically impro ving. Continue medical management. 6. Acute systolic heart failure. The patient is compensated. We will hold diuretic therapy now. A nticipate resuming low dose Bumex once renal function has stabilized. 7. Diabetes. Continue current insulin regimen. 8. Hypertension. Continue current blood pressure regimen. 9. History of coronary artery disease. 10. Dyslipidemia. Continue statin therapy. 11. Alkalosis likely secondary to diuretic therapy. We will hold diuretics for now. Consider a cou rse of Diamox. Dictated By: CHRISTOPHER ROSADO/PATRICK Conf#: [id number] DID#: [id number] CC: ANGELIQUE ALVARES MD; JIMY WAYNE DO;*End*
[2018-03-27] MEDS: FEBUXOSTAT 40 MG TABLET PO SCH (10:56)
--- NOTE | 2018-03-27 13:30 | CONS ---
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 Denies chest pain or palpitations Exam/Review of Systems Vital Signs Vitals Vital Signs Date Temp Pulse Resp B/P (MAP) Pulse Ox O2 O2 Flow FiO2 Time Delivery Rate 03/27/18 98.2 66 19 141/74 98 12:04 (96) 03/27/18 Nasal 2.0 08:47 Cannula Intake and Output 03/26/18 03/26/18 03/27/18 1515:00 23:00 07:00 IntakeIntake Total 750 ml OutputOutput Total 950 ml BalanceBalance -200 ml Exam Constitutional: alert, oriented (No apparent distress, family bedside) Respiratory: other (Coarse breath sounds bilaterally, no wheezing) Cardiovascular: regular rate and rhythm (S1-S2 heard) Gastrointestinal: soft, non-tender, bowel sounds Extremities: edema Labs Result Diagram: 03/27/1852703/27/18527 Results 24hrs Laboratory Tests Test 03/26/18 17:43 03/26/18 20:23 03/27/18 01:43 03/27/18 05:28 Bedside Glucose 217 207 128 White Blood Count 7.4 Red Blood Count 3.88 L Hemoglobin 10.9 L Hematocrit 33.1 L Mean Corpuscular 85.3 Volume Mean Corpuscular 28.1 L Hemoglobin Mean Corpuscular 32.9 Hemoglobin Concent Red Cell 13.1 Distribution Width Platelet Count 297 Mean Platelet Volume 10.7 H Immature 0.500 H Granulocytes % Neutrophils % 65.4 Lymphocytes % 10.2 L Monocytes % 16.5 H Eosinophils % 6.7 Basophils % 0.7 Nucleated Red Blood 0.0 Cells % Immature 0.040 H Granulocytes # Neutrophils # 4.9 Lymphocytes # 0.8 Monocytes # 1.2 H Eosinophils # 0.5 Basophils # 0.1 Nucleated Red Blood 0.0 Cells # Sodium Level 138 Potassium Level 4.4 Chloride Level 97 Carbon Dioxide Level 34 H Anion Gap 7 Blood Urea Nitrogen 93 H Creatinine 3.57 H Est Glomerular Filtrat Rate mL/min Glucose Level 69 L Calcium Level 9.4 Phosphorus Level 4.3 Magnesium Level 2.4 Test 03/27/18 05:32 03/27/18 06:01 03/27/18 08:12 03/27/18 11:50 Bedside Glucose 66 L 81 109 219 Medications Medications Current Medications Aspirin (Halfprin) 81 mg DAILY PO Last administered on 03/27/18 08:39; Admin Dose 81 MG; Start 03/21/18 at 09:00 Atorvastatin Calcium (Lipitor) 40 mg QHS PO Last administered on 03/26/18 20:25; Admin Dose 40 MG; Start 03/20/18 at 21:00 Clopidogrel Bisulfate (plaVIX) 75 mg DAILY PO Last administered on 03/27/18 08:40; Admin Dose 75 MG; Start 03/21/18 at 09:00 Febuxostat (Uloric) 80 mg DAILY PO Last administered on 03/27/18 10:56; Admin Dose 80 MG; Start 03/21/18 at 09:00 Hydralazine HCl (Apresoline) 50 mg BID PO Last administered on 03/27/18 08:40; Admin Dose 50 MG; Start 03/20/18 at 21:00 Isosorbide Mononitrate (Imdur) 30 mg DAILY PO Last administered on 03/27/18 08:40; Admin Dose 30 MG; Start 03/21/18 at 09:00 Fish Oil (Fish Oil) 2,000 mg BID PO Last administered on 03/27/18 08:40; Admin Dose 2,000 MG; Start 03/20/18 at 21:00 IV Flush (NS 3 ml) 3 ml PER PROTOCOL IV ; Start 03/20/18 at 19:30 Pantoprazole (Protonix Tab) 40 mg DAILY@06 PO Last administered on 03/27/18 06:03; Admin Dose 40 MG; Start 03/21/18 at 06:00 Enoxaparin Sodium (Lovenox) 30 mg DAILY SC Last administered on 03/27/18 09:20; Admin Dose 30 MG; Start 03/21/18 at 09:00 Diagnostic Test (Pha) (Accu-Chek) 1 ea 02 XX Last administered on 03/26/18at 02:32; Admin Dose 1 EA; Start 03/21/18 at 02:00 Insulin Glargine (Lantus) 40 units DAILY@2000 SC Last administered on 03/26/18 20:35; Admin Dose 40 UNITS; Start 03/20/18 at 20:00 Insulin Aspart (Novolog Insulin Pen) NOVOLOG *MODERATE* ALGORITHM WITH MEALS BEDTIME SC Last administered on 03/27/18 11:56; Admin Dose 4 UNIT; Start 03/20/18 at 21:00 Miscellaneous Information 1 ea NOTE XX ; Start 03/20/18 at 20:00 Glucose (Glutose) 15 gm Q15M PRN PO DECREASED GLUCOSE Last administered on 03/27/18 05:35; Admin Dose 15 GM; Start 03/20/18 at 20:00 Glucose (Glutose) 22.5 gm Q15M PRN PO DECREASED GLUCOSE; Start 03/20/18 at 20:00 Dextrose (D50w Syringe) 25 ml Q15M PRN IV DECREASED GLUCOSE; Start 03/20/18 at 20:00 Dextrose (D50w Syringe) 50 ml Q15M PRN IV DECREASED GLUCOSE; Start 03/20/18 at 20:00 Glucagon (Glucagen) 1 mg Q15M PRN IM DECREASED GLUCOSE; Start 03/20/18 at 20:00 Glucose (Glutose) 15 gm Q15M PRN BUCCAL DECREASED GLUCOSE; Start 03/20/18 at 20:00 Nitroglycerin (Nitroglycerin (Sl Tab) 0.4 Mg) 1 tab PRN PRN SL CHEST PAIN Last administered on 03/21/18at 00:20; Admin Dose 1 TAB; Start 03/21/18 at 00:00 Hydralazine HCl (Apresoline) 10 mg Q6H PRN IV SBP>160 Last administered on 03/22/18 00:28; Admin Dose 10 MG; Start 03/21/18 at 15:00 Tramadol HCl (Ultram) 50 mg Q6H PRN PO MODERATE PAIN LEVEL 4-6 Last administered on 03/26/18 23:46; Admin Dose 50 MG; Start 03/22/18 at 09:30 Carvedilol (Coreg) 6.25 mg BID PO Last administered on 03/27/18 08:41; Admin Dose 6.25 MG; Start 03/22/18 at 21:00 Polyethylene Glycol (Miralax) 17 gm BID PO Last administered on 03/27/18 08:41; Admin Dose 17 GM; Start 03/24/18 at 16:00 Bisacodyl (Dulcolax) 10 mg DAILY PRN PO CONSTIPATION Last administered on 03/26/18 08:04; Admin Dose 10 MG; Start 03/24/18 at 14:30 Bumetanide (Bumex) 1 mg DAILY PO Last administered on 03/26/18 08:50; Admin Dose 1 MG; Start 03/26/18 at 09:00; Status Hold Agustin Traylor DO Mar 27, 2018 13:30
--- NOTE | 2018-03-27 19:17 | PN ---
Date/Time of Note Date/Time of Note DATE: 03/27/18 TIME: 19:13 Assessment/Plan VTE Prophylaxis Risk score (from Ns)>0 risk: 4 SCD applied (from [facility] [place] No SCD contraindicated: low risk/ambulating Pharmacological prophylaxis: LMWH Lines/Catheters IV Catheter Type (from [facility] [place] Urinary Cath still in place: No Assessment/Plan Hospital Course A/P 1 Decom S-CHF; stable 2 NSVT; life vest -P 3 Dm 4 COPD 5 P Tobacco 6 Isc CMY 7 Htn 8 Dl 9 CKD IV; avoid piccs S: no distress O: vss PE no pallor/ jvd reg no mrg ctab bs+ nt nd; no r/r/g mild edema Result Diagram: 03/27/1852703/27/18527 Results 24hrs Laboratory Tests Test 03/26/18 20:23 03/27/18 01:43 03/27/18 05:28 03/27/18 05:32 Bedside Glucose 207 128 66 L White Blood Count 7.4 Red Blood Count 3.88 L Hemoglobin 10.9 L Hematocrit 33.1 L Mean Corpuscular 85.3 Volume Mean Corpuscular 28.1 L Hemoglobin Mean Corpuscular 32.9 Hemoglobin Concent Red Cell 13.1 Distribution Width Platelet Count 297 Mean Platelet Volume 10.7 H Immature 0.500 H Granulocytes % Neutrophils % 65.4 Lymphocytes % 10.2 L Monocytes % 16.5 H Eosinophils % 6.7 Basophils % 0.7 Nucleated Red Blood 0.0 Cells % Immature 0.040 H Granulocytes # Neutrophils # 4.9 Lymphocytes # 0.8 Monocytes # 1.2 H Eosinophils # 0.5 Basophils # 0.1 Nucleated Red Blood 0.0 Cells # Sodium Level 138 Potassium Level 4.4 Chloride Level 97 Carbon Dioxide Level 34 H Anion Gap 7 Blood Urea Nitrogen 93 H Creatinine 3.57 H Est Glomerular Filtrat Rate mL/min Glucose Level 69 L Calcium Level 9.4 Phosphorus Level 4.3 Magnesium Level 2.4 Test 03/27/18 06:01 03/27/18 08:12 03/27/18 11:50 03/27/18 17:37 Bedside Glucose 81 109 219 216 Exam/Review of Systems Exam Vitals Vital Signs Date Temp Pulse Resp B/P (MAP) Pulse Ox O2 O2 Flow FiO2 Time Delivery Rate 03/27/18 74 17:06 03/27/18 97.9 19 143/72 96 16:17 (95) 03/27/18 Nasal 2.0 08:47 Cannula Intake and Output 03/26/18 03/26/18 03/27/18 1414:59 22:59 06:59 IntakeIntake Total 750 ml OutputOutput Total 950 ml BalanceBalance -200 ml Results Results 24hrs Laboratory Tests Test 03/26/18 20:23 03/27/18 01:43 03/27/18 05:28 03/27/18 05:32 Bedside Glucose 207 128 66 L White Blood Count 7.4 Red Blood Count 3.88 L Hemoglobin 10.9 L Hematocrit 33.1 L Mean Corpuscular 85.3 Volume Mean Corpuscular 28.1 L Hemoglobin Mean Corpuscular 32.9 Hemoglobin Concent Red Cell 13.1 Distribution Width Platelet Count 297 Mean Platelet Volume 10.7 H Immature 0.500 H Granulocytes % Neutrophils % 65.4 Lymphocytes % 10.2 L Monocytes % 16.5 H Eosinophils % 6.7 Basophils % 0.7 Nucleated Red Blood 0.0 Cells % Immature 0.040 H Granulocytes # Neutrophils # 4.9 Lymphocytes # 0.8 Monocytes # 1.2 H Eosinophils # 0.5 Basophils # 0.1 Nucleated Red Blood 0.0 Cells # Sodium Level 138 Potassium Level 4.4 Chloride Level 97 Carbon Dioxide Level 34 H Anion Gap 7 Blood Urea Nitrogen 93 H Creatinine 3.57 H Est Glomerular Filtrat Rate mL/min Glucose Level 69 L Calcium Level 9.4 Phosphorus Level 4.3 Magnesium Level 2.4 Test 03/27/18 06:01 03/27/18 08:12 03/27/18 11:50 03/27/18 17:37 Bedside Glucose 81 109 219 216 Medications Medication Current Medications Aspirin (Halfprin) 81 mg DAILY PO Last administered on 03/27/18at 08:39; Admin Dose 81 MG; Start 03/21/18 at 09:00 Atorvastatin Calcium (Lipitor) 40 mg QHS PO Last administered on 03/26/18at 20:25; Admin Dose 40 MG; Start 03/20/18 at 21:00 Clopidogrel Bisulfate (plaVIX) 75 mg DAILY PO Last administered on 03/27/18at 08:40; Admin Dose 75 MG; Start 03/21/18 at 09:00 Febuxostat (Uloric) 80 mg DAILY PO Last administered on 03/27/18 10:56; Admin Dose 80 MG; Start 03/21/18 at 09:00 Hydralazine HCl (Apresoline) 50 mg BID PO Last administered on 03/27/18 08:40; Admin Dose 50 MG; Start 03/20/18 at 21:00 Isosorbide Mononitrate (Imdur) 30 mg DAILY PO Last administered on 03/27/18 08:40; Admin Dose 30 MG; Start 03/21/18 at 09:00 Fish Oil (Fish Oil) 2,000 mg BID PO Last administered on 03/27/18 08:40; Admin Dose 2,000 MG; Start 03/20/18 at 21:00 IV Flush (NS 3 ml) 3 ml PER PROTOCOL IV ; Start 03/20/18 at 19:30 Pantoprazole (Protonix Tab) 40 mg DAILY@06 PO Last administered on 03/27/18 06:03; Admin Dose 40 MG; Start 03/21/18 at 06:00 Enoxaparin Sodium (Lovenox) 30 mg DAILY SC Last administered on 03/27/18 09:20; Admin Dose 30 MG; Start 03/21/18 at 09:00 Diagnostic Test (Pha) (Accu-Chek) 1 ea 02 XX Last administered on 03/26/18 02:32; Admin Dose 1 EA; Start 03/21/18 at 02:00 Insulin Aspart (Novolog Insulin Pen) NOVOLOG *MODERATE* ALGORITHM WITH MEALS BEDTIME SC Last administered on 03/27/18 17:43; Admin Dose 4 UNIT; Start 03/20/18 at 21:00 Miscellaneous Information 1 ea NOTE XX ; Start 03/20/18 at 20:00 Glucose (Glutose) 15 gm Q15M PRN PO DECREASED GLUCOSE Last administered on 03/27/18 05:35; Admin Dose 15 GM; Start 03/20/18 at 20:00 Glucose (Glutose) 22.5 gm Q15M PRN PO DECREASED GLUCOSE; Start 03/20/18 at 20:00 Dextrose (D50w Syringe) 25 ml Q15M PRN IV DECREASED GLUCOSE; Start 03/20/18 at 20:00 Dextrose (D50w Syringe) 50 ml Q15M PRN IV DECREASED GLUCOSE; Start 03/20/18 at 20:00 Glucagon (Glucagen) 1 mg Q15M PRN IM DECREASED GLUCOSE; Start 03/20/18 at 20:00 Glucose (Glutose) 15 gm Q15M PRN BUCCAL DECREASED GLUCOSE; Start 03/20/18 at 20:00 Nitroglycerin (Nitroglycerin (Sl Tab) 0.4 Mg) 1 tab PRN PRN SL CHEST PAIN Last administered on 03/21/18 00:20; Admin Dose 1 TAB; Start 03/21/18 at 00:00 Hydralazine HCl (Apresoline) 10 mg Q6H PRN IV SBP>160 Last administered on 03/22/18 00:28; Admin Dose 10 MG; Start 03/21/18 at 15:00 Tramadol HCl (Ultram) 50 mg Q6H PRN PO MODERATE PAIN LEVEL 4-6 Last administered on 03/26/18 23:46; Admin Dose 50 MG; Start 03/22/18 at 09:30 Carvedilol (Coreg) 6.25 mg BID PO Last administered on 03/27/18 08:41; Admin Dose 6.25 MG; Start 03/22/18 at 21:00 Polyethylene Glycol (Miralax) 17 gm BID PO Last administered on 03/27/18 08:41; Admin Dose 17 GM; Start 03/24/18 at 16:00 Bisacodyl (Dulcolax) 10 mg DAILY PRN PO CONSTIPATION Last administered on 03/26/18 08:04; Admin Dose 10 MG; Start 03/24/18 at 14:30 Bumetanide (Bumex) 1 mg DAILY PO Last administered on 03/26/18 08:50; Admin Dose 1 MG; Start 03/26/18 at 09:00; Status Hold Hydralazine HCl (Apresoline) 10 mg BID PO Last administered on 03/27/18 14:17; Admin Dose 10 MG; Start 03/27/18 at 14:00 Insulin Glargine (Lantus) 30 units DAILY@2000 SC ; Start 03/27/18 at 20:00 Nifedipine (Procardia Xl) 30 mg DAILY PO ; Start 03/27/18 at 19:00 CHUY HORTON MD Mar 27, 2018 19:17
[2018-03-27] MEDS ORDERED: INSULIN GLARGINE [LANTus] (100 UNITS/ML) SYG SC SCH (20:00)
[2018-03-27] MEDS: NIFEdipine (XL) 30 MG TAB PO SCH (21:24)
[2018-03-27] MEDS: ATORVASTATIN 40 MG TAB PO SCH (21:25)
[2018-03-28] VITALS (12 sets, daily range): BP systolic 109–136; BP diastolic 60–72; PULSE 61–73; RESP 17–20
[2018-03-28] MEDS: ACCU-CHEK XX SCH (02:00)
[2018-03-28] MEDS: traMADol 50 MG TAB PO PRN (06:29)
[2018-03-28] MEDS: PANTOPRAZOLE (EC) 40 MG TAB PO SCH (06:29)
[2018-03-28] MEDS: INSULIN ASPART [NOVOLOG] 3 ML PEN SC SCH ×5 (07:37→20:37)
--- NOTE | 2018-03-28 08:08 | PN ---
DATE: 03/28/2018 SUBJECTIVE: The patient is stable, no shortness of breath. No fevers, chills, nausea, vomiting. OBJECTIVE: VITAL SIGNS: Blood pressure is 132/68, respiratory rate 20, pulse 68, temperature 98.1. HEENT: Head is normocephalic. NECK: Supple. HEART: Regular rate. LUNGS: Show diminished breath sounds at the base. ABDOMEN: Soft, nontender to palpation without rebound or guarding. EXTREMITIES: Negative for clubbing, cyanosis, no edema. DERMATOLOGIC: No rashes. MUSCULOSKELETAL: No joint effusion. NEUROLOGIC: No change in exam. MEDICATIONS: The patient's medications have been reviewed. LABORATORY DATA: 03/27/2018 has been reviewed. Lab data from 03/28/2018 is pending. ASSESSMENT AND PLAN: 1. Nonoliguric acute kidney injury on top of chronic kidney disease stage IV with previous baseline creatinine around 2.5 to 2.7 mg/dL. Etiology of acute kidney injury is secondary to hemodynamics, ca rdiorenal syndrome, diuretics. The patient currently appears euvolemic on exam. Diuretic therapy is currently on hold due to worsening renal function and azotemia. Plan is to follow up renal panel to day. Will continue to hold diuretic therapy. Continue supportive care, renally dose meds, avoid nep hrotoxins. 2. Anemia. Monitor hemoglobin and hematocrit levels. 3. Mineral bone disorder, monitor calcium and phosphorus levels. 4. Alkalosis, likely secondary to diuretic therapy in conjunction with acute kidney injury. We will continue to monitor. May consider Diamox. 5. Chronic kidney disease stage IV secondary to hypertension and diabetic nephropathy. The patient is currently in acute kidney injury as stated above. Continue current medical management. Otherwise , continue disease factor modification. 6. Acute respiratory failure secondary to congestive heart failure. The patient clinically improvin g. Continue current treatment plan. 7. Acute systolic heart failure. The patient is compensated, holding diuretic therapy at this time. 8. Diabetes. Continue current insulin regimen. 9. Hypertension. Continue current blood pressure regimen. 10. History of coronary artery disease. 11. Dyslipidemia. Continue statin therapy. Dictated By: CHRISTOPHER MARIO DO NR/NTS Conf#: [id number] DID#: [id number] CC: ANGELIQUE ALVARES MD;*End*
[2018-03-28] MEDS: POLYETHYLENE GLYCOL 17 GM PACKET PO SCH ×2 (08:34→20:37)
[2018-03-28] MEDS: ASPIRIN (EC) 81 MG TAB PO SCH (08:35)
[2018-03-28] MEDS: FISH OIL 1,000 MG CAP PO SCH ×2 (08:35→20:37)
[2018-03-28] MEDS: NIFEdipine (XL) 30 MG TAB PO SCH (08:36)
[2018-03-28] MEDS: CLOPIDOGREL 75 MG TAB PO SCH (08:36)
[2018-03-28] MEDS: ISOSORBIDE MONONITRATE(SR)30 MG TAB PO SCH (08:36)
[2018-03-28] MEDS: ENOXAPARIN 30 MG/0.3 ML SYG SC SCH (08:50)
[2018-03-28] MEDS: FEBUXOSTAT 40 MG TABLET PO SCH (09:52)
--- NOTE | 2018-03-28 11:47 | CONS ---
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% Ventricular tachycardia Acute kidney injury with history of CKD Hypertension -CHF improving, diuretics as per nephrology -Patient was approved for LifeVest, patient was seen by educational housing management representative yesterday evening and he refused placement. I did discuss with the patient this morning via occasional caregiver, he tells me he does not want the device. I did discuss the risks including sudden cardiac . Patient became agitated and upset at me telling me he does not want the device. -Maintain potassium above 4.0 and magnesium above 2.0 -Continue beta-blockers heart rate and blood pressure permits -We will add hydralazine for afterload reduction Consultation Date/Type/Reason Admit Date/Time Mar 20, 2018 at 19:05 Initial Consult Date Type of Consult Cardiology Date/Time of Note DATE: 03/28/18 TIME: 11:44 24 HR Interval Summary Free Text/Dictation Shortness of breath is better. Denies chest pain, palpitations or dizziness Exam/Review of Systems Vital Signs Vitals Vital Signs Date Temp Pulse Resp B/P (MAP) Pulse Ox O2 O2 Flow FiO2 Time Delivery Rate 03/28/18 97.9 67 18 128/66 97 11:26 (86) 03/27/18 Nasal 2.0 08:47 Cannula Intake and Output 03/27/18 03/27/18 03/28/18 1515:00 23:00 07:00 IntakeIntake Total 420 ml 500 ml OutputOutput Total 600 ml 1100 ml BalanceBalance -180 ml -600 ml Exam Exam No apparent distress Constitutional: alert, oriented Head: normocephalic Respiratory: other (Coarse breath sounds bilaterally, no wheezing) Cardiovascular: regular rate and rhythm, other (S1-S2 heard) Gastrointestinal: soft, non-tender, bowel sounds Extremities: edema Labs Result Diagram: 03/27/18 0528 03/28/18 0657 Results 24hrs Laboratory Tests Test 03/27/18 11:50 03/27/18 17:37 03/27/18 21:19 03/28/18 02:34 Bedside Glucose 219 216 208 140 Test 03/28/18 06:57 03/28/18 07:37 Sodium Level 136 Potassium Level 4.0 Chloride Level 99 Carbon Dioxide Level 34 H Anion Gap 3 L Blood Urea Nitrogen 79 H Creatinine 3.40 H Est Glomerular Filtrat Rate mL/min Glucose Level 105 Calcium Level 9.0 Phosphorus Level 4.1 Magnesium Level 2.4 Bedside Glucose 107 Medications Medications Current Medications Aspirin (Halfprin) 81 mg DAILY PO Last administered on 03/28/18 08:35; Admin Dose 81 MG; Start 03/21/18 at 09:00 Atorvastatin Calcium (Lipitor) 40 mg QHS PO Last administered on 03/27/18 21:25; Admin Dose 40 MG; Start 03/20/18 at 21:00 Clopidogrel Bisulfate (plaVIX) 75 mg DAILY PO Last administered on 03/28/18 08:36; Admin Dose 75 MG; Start 03/21/18 at 09:00 Febuxostat (Uloric) 80 mg DAILY PO Last administered on 03/28/18 09:52; Admin Dose 80 MG; Start 03/21/18 at 09:00 Hydralazine HCl (Apresoline) 50 mg BID PO Last administered on 03/28/18 08:35; Admin Dose 50 MG; Start 03/20/18 at 21:00 Isosorbide Mononitrate (Imdur) 30 mg DAILY PO Last administered on 03/28/18 08:36; Admin Dose 30 MG; Start 03/21/18 at 09:00 Fish Oil (Fish Oil) 2,000 mg BID PO Last administered on 03/28/18 08:35; Admin Dose 2,000 MG; Start 03/20/18 at 21:00 IV Flush (NS 3 ml) 3 ml PER PROTOCOL IV ; Start 03/20/18 at 19:30 Pantoprazole (Protonix Tab) 40 mg DAILY@06 PO Last administered on 03/28/18 06:29; Admin Dose 40 MG; Start 03/21/18 at 06:00 Enoxaparin Sodium (Lovenox) 30 mg DAILY SC Last administered on 03/28/18 08:50; Admin Dose 30 MG; Start 03/21/18 at 09:00 Diagnostic Test (Pha) (Accu-Chek) 1 ea 02 XX Last administered on 03/26/18 02:32; Admin Dose 1 EA; Start 03/21/18 at 02:00 Insulin Aspart (Novolog Insulin Pen) NOVOLOG *MODERATE* ALGORITHM WITH MEALS BEDTIME SC Last administered on 03/27/18at 21:39; Admin Dose 1 UNIT; Start 03/20/18 at 21:00 Miscellaneous Information 1 ea NOTE XX ; Start 03/20/18 at 20:00 Glucose (Glutose) 15 gm Q15M PRN PO DECREASED GLUCOSE Last administered on 03/27/18at 05:35; Admin Dose 15 GM; Start 03/20/18 at 20:00 Glucose (Glutose) 22.5 gm Q15M PRN PO DECREASED GLUCOSE; Start 03/20/18 at 20:00 Dextrose (D50w Syringe) 25 ml Q15M PRN IV DECREASED GLUCOSE; Start 03/20/18 at 20:00 Dextrose (D50w Syringe) 50 ml Q15M PRN IV DECREASED GLUCOSE; Start 03/20/18 at 20:00 Glucagon (Glucagen) 1 mg Q15M PRN IM DECREASED GLUCOSE; Start 03/20/18 at 20:00 Glucose (Glutose) 15 gm Q15M PRN BUCCAL DECREASED GLUCOSE; Start 03/20/18 at 20:00 Nitroglycerin (Nitroglycerin (Sl Tab) 0.4 Mg) 1 tab PRN PRN SL CHEST PAIN Last administered on 03/21/18at 00:20; Admin Dose 1 TAB; Start 03/21/18 at 00:00 Hydralazine HCl (Apresoline) 10 mg Q6H PRN IV SBP>160 Last administered on 03/22/18at 00:28; Admin Dose 10 MG; Start 03/21/18 at 15:00 Tramadol HCl (Ultram) 50 mg Q6H PRN PO MODERATE PAIN LEVEL 4-6 Last administered on 03/28/18at 06:29; Admin Dose 50 MG; Start 03/22/18 at 09:30 Carvedilol (Coreg) 6.25 mg BID PO Last administered on 03/28/18 08:36; Admin Dose 6.25 MG; Start 03/22/18 at 21:00 Polyethylene Glycol (Miralax) 17 gm BID PO Last administered on 03/28/18 08:34; Admin Dose 17 GM; Start 03/24/18 at 16:00 Bisacodyl (Dulcolax) 10 mg DAILY PRN PO CONSTIPATION Last administered on 03/26/18at 08:04; Admin Dose 10 MG; Start 03/24/18 at 14:30 Bumetanide (Bumex) 1 mg DAILY PO Last administered on 03/26/18at 08:50; Admin Dose 1 MG; Start 03/26/18 at 09:00; Status Hold Insulin Glargine (Lantus) 30 units DAILY@2000 SC Last administered on 03/27/18at 21:39; Admin Dose 30 UNITS; Start 03/27/18 at 20:00 Nifedipine (Procardia Xl) 30 mg DAILY PO Last administered on 03/28/18at 08:36; Admin Dose 30 MG; Start 03/27/18 at 19:00 Agustin Traylor DO Mar 28, 2018 11:47
--- NOTE | 2018-03-28 15:26 | PN ---
Date/Time of Note Date/Time of Note DATE: 03/28/18 TIME: 15:23 Assessment/Plan VTE Prophylaxis Risk score (from Ns)>0 risk: 4 SCD applied (from Ns): No SCD contraindicated: low risk/ambulating Pharmacological prophylaxis: LMWH Lines/Catheters IV Catheter Type (from Nrs): Saline Lock Urinary Cath still in place: No Assessment/Plan Hospital Course A/P 1 Decom S-CHF; stable, continue medical care. 2 NSVT; life vest -P. Refused initially as he felt this was a challenge to use 3 Dm 4 COPD 5 P Tobacco 6 Isc CMY 7 Htn 8 Dl 9 CKD IV; avoid piccs 10. Failure to thrive, may need snf at discharge Tuesday. 11. Tremors possibly action tremors due to deconditioning/ muscle weakness. Will monitor for parkinsonism. S: 03/27 no distress 03/28: Refused LifeVest as he felt he did not have enough knowledge support to use of the device. I spoke with son who will re-enforced the need for the LifeVest. Patient may be more comfortable going to a snf until he is more functional. No chest pain dyspnea positive exertional fatigue. No fever. O: vss PE no pallor/ jvd reg no mrg ctab bs+ nt nd; no r/r/g no edema Result Diagram: 03/27/18 0528 03/28/18 0657 Results 24hrs Laboratory Tests Test 03/27/18 17:37 03/27/18 21:19 03/28/18 02:34 03/28/18 06:57 Bedside Glucose 216 208 140 Sodium Level 136 Potassium Level 4.0 Chloride Level 99 Carbon Dioxide Level 34 H Anion Gap 3 L Blood Urea Nitrogen 79 H Creatinine 3.40 H Est Glomerular Filtrat Rate mL/min Glucose Level 105 Calcium Level 9.0 Phosphorus Level 4.1 Magnesium Level 2.4 Test 03/28/18 07:37 03/28/18 11:47 Bedside Glucose 107 214 Exam/Review of Systems Exam Vitals Vital Signs Date Temp Pulse Resp B/P (MAP) Pulse Ox O2 O2 Flow FiO2 Time Delivery Rate 03/28/18 69 12:00 03/28/18 97.9 18 128/66 97 11:26 (86) 03/27/18 Nasal 2.0 08:47 Cannula Intake and Output 03/27/18 03/27/18 03/28/18 1515:00 23:00 07:00 IntakeIntake Total 420 ml 500 ml OutputOutput Total 600 ml 1100 ml BalanceBalance -180 ml -600 ml Results Results 24hrs Laboratory Tests Test 03/27/18 17:37 03/27/18 21:19 03/28/18 02:34 03/28/18 06:57 Bedside Glucose 216 208 140 Sodium Level 136 Potassium Level 4.0 Chloride Level 99 Carbon Dioxide Level 34 H Anion Gap 3 L Blood Urea Nitrogen 79 H Creatinine 3.40 H Est Glomerular Filtrat Rate mL/min Glucose Level 105 Calcium Level 9.0 Phosphorus Level 4.1 Magnesium Level 2.4 Test 03/28/18 07:37 03/28/18 11:47 Bedside Glucose 107 214 Medications Medication Current Medications Aspirin (Halfprin) 81 mg DAILY PO Last administered on 03/28/18 08:35; Admin Dose 81 MG; Start 03/21/18 at 09:00 Atorvastatin Calcium (Lipitor) 40 mg QHS PO Last administered on 03/27/18 21:25; Admin Dose 40 MG; Start 03/20/18 at 21:00 Clopidogrel Bisulfate (plaVIX) 75 mg DAILY PO Last administered on 03/28/18 08:36; Admin Dose 75 MG; Start 03/21/18 at 09:00 Febuxostat (Uloric) 80 mg DAILY PO Last administered on 03/28/18 09:52; Admin Dose 80 MG; Start 03/21/18 at 09:00 Hydralazine HCl (Apresoline) 50 mg BID PO Last administered on 03/28/18 08:35; Admin Dose 50 MG; Start 03/20/18 at 21:00 Isosorbide Mononitrate (Imdur) 30 mg DAILY PO Last administered on 03/28/18 08:36; Admin Dose 30 MG; Start 03/21/18 at 09:00 Fish Oil (Fish Oil) 2,000 mg BID PO Last administered on 03/28/18 08:35; Admin Dose 2,000 MG; Start 03/20/18 at 21:00 IV Flush (NS 3 ml) 3 ml PER PROTOCOL IV ; Start 03/20/18 at 19:30 Pantoprazole (Protonix Tab) 40 mg DAILY@06 PO Last administered on 2/12/19at 06:29; Admin Dose 40 MG; Start 03/21/18 at 06:00 Enoxaparin Sodium (Lovenox) 30 mg DAILY SC Last administered on 03/28/18 08:50; Admin Dose 30 MG; Start 03/21/18 at 09:00 Diagnostic Test (Pha) (Accu-Chek) 1 ea 02 XX Last administered on 03/26/18at 02 :32; Admin Dose 1 EA; Start 03/21/18 at 02:00 Insulin Aspart (Novolog Insulin Pen) NOVOLOG *MODERATE* ALGORITHM WITH MEALS BEDTIME SC Last administered on 03/28/18 11:50; Admin Dose 4 UNIT; Start at 21:00 Miscellaneous Information 1 ea NOTE XX ; Start 03/20/18 at 20:00 Glucose (Glutose) 15 gm Q15M PRN PO DECREASED GLUCOSE Last administered on 03/27/18at 05:35; Admin Dose 15 GM; Start 03/20/18 at 20:00 Glucose (Glutose) 22.5 gm Q15M PRN PO DECREASED GLUCOSE; Start 03/20/18 at 20:00 Dextrose (D50w Syringe) 25 ml Q15M PRN IV DECREASED GLUCOSE; Start 03/20/18 at 20:00 Dextrose (D50w Syringe) 50 ml Q15M PRN IV DECREASED GLUCOSE; Start 03/20/18 at 20:00 Glucagon (Glucagen) 1 mg Q15M PRN IM DECREASED GLUCOSE; Start 03/20/18 at 20:00 Glucose (Glutose) 15 gm Q15M PRN BUCCAL DECREASED GLUCOSE; Start 03/20/18 at 20:00 Nitroglycerin (Nitroglycerin (Sl Tab) 0.4 Mg) 1 tab PRN PRN SL CHEST PAIN Last administered on 03/21/18at 00:20; Admin Dose 1 TAB; Start 03/21/18 at 00:00 Hydralazine HCl (Apresoline) 10 mg Q6H PRN IV SBP>160 Last administered on 03/22/18at 00:28; Admin Dose 10 MG; Start 03/21/18 at 15:00 Tramadol HCl (Ultram) 50 mg Q6H PRN PO MODERATE PAIN LEVEL 4-6 Last administered on 03/28/18at 06:29; Admin Dose 50 MG; Start 03/22/18 at 09:30 Carvedilol (Coreg) 6.25 mg BID PO Last administered on 03/28/18 08:36; Admin Dose 6.25 MG; Start 03/22/18 at 21:00 Polyethylene Glycol (Miralax) 17 gm BID PO Last administered on 03/28/18 08:34; Admin Dose 17 GM; Start 03/24/18 at 16:00 Bisacodyl (Dulcolax) 10 mg DAILY PRN PO CONSTIPATION Last administered on 03/26/18 08:04; Admin Dose 10 MG; Start 03/24/18 at 14:30 Bumetanide (Bumex) 1 mg DAILY PO Last administered on 03/26/18 08:50; Admin Dose 1 MG; Start 03/26/18 at 09:00; Status Hold Insulin Glargine (Lantus) 30 units DAILY@2000 SC Last administered on 03/27/18 21:39; Admin Dose 30 UNITS; Start 03/27/18 at 20:00 Nifedipine (Procardia Xl) 30 mg DAILY PO Last administered on 03/28/18 08:36; Admin Dose 30 MG; Start 03/27/18 at 19:00 CHUY HORTON MD Mar 28, 2018 15:26
[2018-03-28] MEDS ORDERED: INSULIN LISPRO 100 UNIT/ML VIAL SC SCH (17:25)
[2018-03-28] MEDS: ATORVASTATIN 40 MG TAB PO SCH (20:37)
[2018-03-28] MEDS: INSULIN GLARGINE [LANTus] (100 UNITS/ML) SYG SC SCH (20:41)
[2018-03-28] MEDS: LACTOBACILLUS RHAMNOSUS CAP PO SCH (20:46)
[2018-03-29] VITALS (11 sets, daily range): BP systolic 130–162; BP diastolic 66–85; PULSE 64–77; RESP 18–20
[2018-03-29] MEDS: ACCU-CHEK XX SCH (02:00)
[2018-03-29] MEDS: PANTOPRAZOLE (EC) 40 MG TAB PO SCH (06:20)
[2018-03-29] MEDS: INSULIN ASPART [NOVOLOG] 3 ML PEN SC SCH ×7 (07:55→20:41)
--- NOTE | 2018-03-29 08:29 | PN ---
DATE: 03/29/2018 SUBJECTIVE: The patient is stable. No events overnight. No fevers, chills, nausea, or vomiting. OBJECTIVE: VITAL SIGNS: Blood pressure is 153/82, respirations 18, pulse 67, temperature 98.6. HEENT: Head is normocephalic. NECK: Supple. HEART: Regular rate. LUNGS: Show diminished breath sounds at the base. ABDOMEN: Soft, nontender to palpation without rebound or guarding. EXTREMITIES: Negative for clubbing, cyanosis, no edema. DERMATOLOGIC: No rashes. MUSCULOSKELETAL: No joint effusion. NEUROLOGIC: The patient has noted tremors in his hand. MEDICATIONS: The patient's medications have been reviewed. LABORATORY DATA: Shows sodium 135, potassium 4.3, BUN 82, creatinine 3.39. White count 7.3, hemoglo bin 10.0, platelet count is 297. ASSESSMENT AND PLAN: 1. Nonoliguric acute kidney injury on top of chronic kidney disease stage IV with previous baseline creatinine of around 2.5 to 2.7 mg/dL. Etiology of acute kidney injury is secondary to hemodynamics, cardiorenal syndrome, diuretics. The patient's diuretics have been held due to worsening renal func tion. Creatinine has stabilized in the last 24 to 48 hours. At this point, we would continue currollie t treatment plan, supportive care, renally dose all medicines. We would consider resuming low dose d iuretic therapy if renal function remains stable. 2. Anemia. Continue to monitor hemoglobin and hematocrit levels. 3. Mineral bone disorder, monitor calcium and phosphorus levels. 4. Alkalosis secondary to diuretic therapy in conjunction with acute kidney injury. The patient's b icarbonate levels are improving. We will continue to monitor. 5. Chronic kidney disease stage IV, secondary to hypertension and diabetic nephropathy. The patient is currently in acute kidney injury as stated above. Continue current treatment plan. Continue dis ease factor modification. 6. Acute respiratory failure secondary to congestive heart failure, clinically improving. Continue medical management. 7. Acute systolic heart failure. The patient appears near euvolemic. Diuretic is being held due to worsening renal function. We will likely resume low dose diuretic therapy if renal function remains stable. 8. Diabetes. Continue current insulin regimen. 9. Hypertension. Continue blood pressure regimen. 10. History of coronary artery disease. 11. Dyslipidemia. 12. Tremor, questionable Parkinsonian syndrome. Continue to monitor. Dictated By: CHRISTOPHER MARIO DO NR/NTS Conf#: [id number] DID#: [id number] CC: CHUY HORTON MD; JIMY WAYNE DO; ANGELIQUE ALVARES MD;*EndCC*
[2018-03-29] MEDS ORDERED: ISOSORBIDE MONONITRATE(SR)30 MG TAB PO SCH (09:00)
[2018-03-29] MEDS: POLYETHYLENE GLYCOL 17 GM PACKET PO SCH ×2 (09:00→20:41)
[2018-03-29] MEDS: FISH OIL 1,000 MG CAP PO SCH ×2 (09:20→20:39)
[2018-03-29] MEDS: CLOPIDOGREL 75 MG TAB PO SCH (09:20)
[2018-03-29] MEDS: FEBUXOSTAT 40 MG TABLET PO SCH (09:21)
[2018-03-29] MEDS: NIFEdipine (XL) 30 MG TAB PO SCH (09:22)
[2018-03-29] MEDS: ISOSORBIDE MONONITRATE(SR)30 MG TAB PO SCH (09:22)
[2018-03-29] MEDS: ASPIRIN (EC) 81 MG TAB PO SCH (09:23)
[2018-03-29] MEDS: LACTOBACILLUS RHAMNOSUS CAP PO SCH ×2 (09:23→20:39)
[2018-03-29] MEDS: ENOXAPARIN 30 MG/0.3 ML SYG SC SCH (09:28)
--- NOTE | 2018-03-29 14:48 | CONS ---
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% Ventricular tachycardia Acute kidney injury with history of CKD Hypertension -CHF improving, diuretics as per nephrology -Please refer to my progress note 03/28/2018 discussing LifeVest and patient's refusal -Maintain potassium above 4.0 and magnesium above 2.0 -Continue beta-blockers heart rate and blood pressure permits -DC planning Consultation Date/Type/Reason Admit Date/Time Mar 20, 2018 at 19:05 Initial Consult Date Type of Consult Cardiology Date/Time of Note DATE: 03/29/18 TIME: 14:47 24 HR Interval Summary Free Text/Dictation Denies shortness of breath, palpitations Exam/Review of Systems Vital Signs Vitals Vital Signs Date Temp Pulse Resp B/P (MAP) Pulse Ox O2 O2 Flow FiO2 Time Delivery Rate 03/29/18 70 13:30 03/29/18 98.4 18 162/85 95 11:30 (110) 03/29/18 Nasal 2.0 08:10 Cannula Intake and Output 03/28/18 03/28/18 03/29/18 1515:00 23:00 07:00 IntakeIntake Total 800 ml OutputOutput Total 750 ml BalanceBalance 50 ml Exam Constitutional: alert, oriented (No apparent distress) Respiratory: other (Coarse breath sounds bilaterally, no wheezing) Cardiovascular: regular rate and rhythm (S1-S2 heard) Gastrointestinal: soft, non-tender, bowel sounds Extremities: other (With no significant edema) Labs Result Diagram: 03/29/18 0555 03/29/18 0555 Results 24hrs Laboratory Tests Test 03/28/18 17:35 03/28/18 20:35 03/29/18 05:55 03/29/18 08:06 Bedside Glucose 165 152 103 White Blood Count 7.3 Red Blood Count 3.66 L Hemoglobin 10.0 L Hematocrit 30.8 L Mean Corpuscular 84.2 Volume Mean Corpuscular 27.3 L Hemoglobin Mean Corpuscular 32.5 Hemoglobin Concent Red Cell 12.9 Distribution Width Platelet Count 297 Mean Platelet Volume 10.2 Immature 0.400 Granulocytes % Neutrophils % 64.6 Lymphocytes % 11.2 L Monocytes % 15.6 H Eosinophils % 7.4 H Basophils % 0.8 Nucleated Red Blood 0.0 Cells % Immature 0.030 Granulocytes # Neutrophils # 4.7 Lymphocytes # 0.8 Monocytes # 1.1 H Eosinophils # 0.5 Basophils # 0.1 Nucleated Red Blood 0.0 Cells # Sodium Level 135 Potassium Level 4.3 Chloride Level 96 L Carbon Dioxide Level 31 Anion Gap 8 Blood Urea Nitrogen 82 H Creatinine 3.39 H Est Glomerular Filtrat Rate mL/min Glucose Level 120 Calcium Level 8.8 Phosphorus Level 4.3 Magnesium Level 2.5 Test 03/29/18 12:11 Bedside Glucose 113 Medications Medications Current Medications Aspirin (Halfprin) 81 mg DAILY PO Last administered on 03/29/18 09:23; Admin Dose 81 MG; Start 03/21/18 at 09:00 Atorvastatin Calcium (Lipitor) 40 mg QHS PO Last administered on 03/28/18 20:37; Admin Dose 40 MG; Start 03/20/18 at 21:00 Clopidogrel Bisulfate (plaVIX) 75 mg DAILY PO Last administered on 03/29/18 09:20; Admin Dose 75 MG; Start 03/21/18 at 09:00 Febuxostat (Uloric) 80 mg DAILY PO Last administered on 03/29/18 09:21; Admin Dose 80 MG; Start 03/21/18 at 09:00 Hydralazine HCl (Apresoline) 50 mg BID PO Last administered on 03/29/18 09:22; Admin Dose 50 MG; Start 03/20/18 at 21:00 Isosorbide Mononitrate (Imdur) 30 mg DAILY PO Last administered on 03/29/18 09:22; Admin Dose 30 MG; Start 03/21/18 at 09:00 Fish Oil (Fish Oil) 2,000 mg BID PO Last administered on 03/29/18 09:20; Admin Dose 2,000 MG; Start 03/20/18 at 21:00 IV Flush (NS 3 ml) 3 ml PER PROTOCOL IV ; Start 03/20/18 at 19:30 Pantoprazole (Protonix Tab) 40 mg DAILY@06 PO Last administered on 03/29/18 06:20; Admin Dose 40 MG; Start 03/21/18 at 06:00 Enoxaparin Sodium (Lovenox) 30 mg DAILY SC Last administered on 03/29/18 09:28; Admin Dose 30 MG; Start 03/21/18 at 09:00 Diagnostic Test (Pha) (Accu-Chek) 1 ea 02 XX Last administered on 03/26/18at 02:32; Admin Dose 1 EA; Start 03/21/18 at 02:00 Insulin Aspart (Novolog Insulin Pen) NOVOLOG *MODERATE* ALGORITHM WITH MEALS BEDTIME SC Last administered on 03/28/18at 17:43; Admin Dose 2 UNIT; Start 03/20/18 at 21:00 Miscellaneous Information 1 ea NOTE XX ; Start 03/20/18 at 20:00 Glucose (Glutose) 15 gm Q15M PRN PO DECREASED GLUCOSE Last administered on 03/27/18at 05:35; Admin Dose 15 GM; Start 03/20/18 at 20:00 Glucose (Glutose) 22.5 gm Q15M PRN PO DECREASED GLUCOSE; Start 03/20/18 at 20:00 Dextrose (D50w Syringe) 25 ml Q15M PRN IV DECREASED GLUCOSE; Start 03/20/18 at 20:00 Dextrose (D50w Syringe) 50 ml Q15M PRN IV DECREASED GLUCOSE; Start 03/20/18 at 20:00 Glucagon (Glucagen) 1 mg Q15M PRN IM DECREASED GLUCOSE; Start 03/20/18 at 20:00 Glucose (Glutose) 15 gm Q15M PRN BUCCAL DECREASED GLUCOSE; Start 03/20/18 at 20:00 Nitroglycerin (Nitroglycerin (Sl Tab) 0.4 Mg) 1 tab PRN PRN SL CHEST PAIN Last administered on 03/21/18at 00:20; Admin Dose 1 TAB; Start 03/21/18 at 00:00 Hydralazine HCl (Apresoline) 10 mg Q6H PRN IV SBP>160 Last administered on 03/22/18at 00:28; Admin Dose 10 MG; Start 03/21/18 at 15:00 Tramadol HCl (Ultram) 50 mg Q6H PRN PO MODERATE PAIN LEVEL 4-6 Last adminis tered on 03/28/18at 06:29; Admin Dose 50 MG; Start 03/22/18 at 09:30 Carvedilol (Coreg) 6.25 mg BID PO Last administered on 03/29/18at 09:21; Admin Dose 6.25 MG; Start 03/22/18 at 21:00 Polyethylene Glycol (Miralax) 17 gm BID PO Last administered on 03/28/18 20:37; Admin Dose 17 GM; Start 03/24/18 at 16:00 Bisacodyl (Dulcolax) 10 mg DAILY PRN PO CONSTIPATION Last administered on 03/26/18 08:04; Admin Dose 10 MG; Start 03/24/18 at 14:30 Bumetanide (Bumex) 1 mg DAILY PO Last administered on 03/26/18 08:50; Admin Dose 1 MG; Start 03/26/18 at 09:00; Status Hold Nifedipine (Procardia Xl) 30 mg DAILY PO Last administered on 03/29/18 09:22; Admin Dose 30 MG; Start 03/27/18 at 19:00 Insulin Glargine (Lantus) 18 units DAILY@2000 SC Last administered on 03/28/18 20:41; Admin Dose 18 UNITS; Start 03/28/18 at 20:00 Lactobacillus Acidophilus/ Rhamnosus (Culturelle) 1 cap BID PO Last administer ed on 03/29/18 09:23; Admin Dose 1 CAP; Start 03/28/18 at 21:00 Insulin Aspart (Novolog Insulin Pen) 6 unit AC MEALS SC Last administered on 03/29/18 12:18; Admin Dose 6 UNIT; Start 03/28/18 at 17:25 Agustin Traylor DO Mar 29, 2018 14:48
[2018-03-29] MEDS: ATORVASTATIN 40 MG TAB PO SCH (20:40)
[2018-03-29] MEDS: INSULIN GLARGINE [LANTus] (100 UNITS/ML) SYG SC SCH (20:50)
[2018-03-30] VITALS (12 sets, daily range): BP systolic 130–150; BP diastolic 63–82; PULSE 58–76; RESP 17–22
[2018-03-30] MEDS: ACCU-CHEK XX SCH (01:42)
[2018-03-30] MEDS: PANTOPRAZOLE (EC) 40 MG TAB PO SCH (05:41)
[2018-03-30] MEDS: INSULIN ASPART [NOVOLOG] 3 ML PEN SC SCH ×7 (08:08→21:00)
[2018-03-30] MEDS: LACTOBACILLUS RHAMNOSUS CAP PO SCH ×2 (08:25→21:02)
[2018-03-30] MEDS: POLYETHYLENE GLYCOL 17 GM PACKET PO SCH ×2 (08:25→21:03)
[2018-03-30] MEDS: ISOSORBIDE MONONITRATE(SR)30 MG TAB PO SCH (08:26)
[2018-03-30] MEDS: NIFEdipine (XL) 30 MG TAB PO SCH (08:26)
[2018-03-30] MEDS: ASPIRIN (EC) 81 MG TAB PO SCH (08:27)
[2018-03-30] MEDS: CLOPIDOGREL 75 MG TAB PO SCH (08:27)
[2018-03-30] MEDS: FISH OIL 1,000 MG CAP PO SCH ×2 (08:27→21:01)
--- NOTE | 2018-03-30 08:29 | PN ---
DATE: 03/30/2018 SUBJECTIVE: The patient is stable, no events overnight. No fevers, chills, nausea, or vomiting. OBJECTIVE: VITAL SIGNS: Blood pressure is 130/63, respirations 22, pulse 64, temperature 97.8. HEENT: Head is normocephalic. NECK: Supple. HEART: Regular rate. LUNGS: Show diminished breath sounds at the base. ABDOMEN: Soft, nontender to palpation. No rebound or guarding. EXTREMITIES: Negative for clubbing, cyanosis, no edema. DERMATOLOGIC: No rashes. MUSCULOSKELETAL: No joint effusion. NEUROLOGIC: No change in exam. MEDICATIONS: The patient's medications have been reviewed. LABORATORY DATA: Sodium 136, potassium 4.4, BUN 78, creatinine 3.12. White count 7.3, hemoglobin 10 .0, platelet count is 297. ASSESSMENT AND PLAN: 1. Nonoliguric acute kidney injury on top of chronic kidney disease stage IV with previous baseline creatinine of around 2.5 to 2.7m g/dL. Etiology of acute kidney injury is secondary to hemodynamics, cardiorenal syndrome. The patient's renal function has been improving, returning back to baseline a fter the deescalating diuretic therapy. At this point, we will reintroduce low dose diuretic therapy , monitor renal function closely. 2. Anemia. Monitor hemoglobin and hematocrit levels. 3. Mineral bone disorder. Monitor calcium and phosphorus levels. 4. Alkalosis secondary to diuretic therapy, improved. 5. Chronic kidney disease stage IV secondary to hypertension, diabetic nephropathy. The patient is currently in acute kidney injury as stated above. Continue current treatment plan. Continue disease factor modification. 6. Acute respiratory failure secondary to congestive heart failure, clinically improved. 7. Acute congestive heart failure. The patient is euvolemic. Diuretic therapy has been on hold due to worsening renal function. We will resume low dose diuretic therapy to maintain euvolemic status, monitor renal function closely. 8. History of arrhythmia. The patient refused LifeVest placement. Continue to monitor. Follow up with Cardiology. 9. Diabetes. Continue current insulin regimen. 10. Hypertension. Continue current blood pressure regimen. 11. History of coronary artery disease. 12. Dyslipidemia. 13. Tremors, questionable Parkinson syndrome. Continue to monitor. Dictated By: CHRISTOPHER ROSADO/PATRICK Conf#: [id number] DID#: [id number] CC: JIMY WAYNE DO; ANGELIQUE ALVARES MD; CHUY HORTON MD;*[facility]*
[2018-03-30] MEDS: ENOXAPARIN 30 MG/0.3 ML SYG SC SCH (08:39)
[2018-03-30] MEDS: FEBUXOSTAT 40 MG TABLET PO SCH (12:14)
--- NOTE | 2018-03-30 15:49 | CONS ---
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 Less shortness of breath with ambulation Exam/Review of Systems Vital Signs Vitals Vital Signs Date Temp Pulse Resp B/P (MAP) Pulse Ox O2 O2 Flow FiO2 Time Delivery Rate 03/30/18 68 12:00 03/30/18 97.8 22 149/73 98 Room Air 11:39 (98) 03/30/18 2.0 07:27 Intake and Output 03/29/18 03/29/18 03/30/18 1515:00 23:00 07:00 IntakeIntake Total 800 ml 700 ml OutputOutput Total 750 ml 600 ml 1000 ml BalanceBalance -750 ml 200 ml -300 ml Exam Exam No apparent distress Constitutional: alert, oriented Head: normocephalic Respiratory: other (Coarse breath sounds bilaterally, no wheezing) Cardiovascular: regular rate and rhythm, other (S1-S2 heard) Gastrointestinal: soft, non-tender, bowel sounds Extremities: edema Labs Result Diagram: 03/29/18 0555 03/30/18 0558 Results 24hrs Laboratory Tests Test 03/29/18 17:38 03/29/18 20:38 03/30/18 05:58 03/30/18 08:06 Bedside Glucose 254 H 159 145 Sodium Level 136 Potassium Level 4.4 Chloride Level 99 Carbon Dioxide Level 29 Anion Gap 8 Blood Urea Nitrogen 78 H Creatinine 3.12 H Est Glomerular Filtrat Rate mL/min Glucose Level 152 Calcium Level 8.7 Phosphorus Level 4.3 Magnesium Level 2.5 Test 03/30/18 12:12 Bedside Glucose 227 H Medications Medications Current Medications Aspirin (Halfprin) 81 mg DAILY PO Last administered on 03/30/18 08:27; Admin Dose 81 MG; Start 03/21/18 at 09:00 Atorvastatin Calcium (Lipitor) 40 mg QHS PO Last administered on 03/29/18 20:40; Admin Dose 40 MG; Start 03/20/18 at 21:00 Clopidogrel Bisulfate (plaVIX) 75 mg DAILY PO Last administered on 03/30/18 08:27; Admin Dose 75 MG; Start 03/21/18 at 09:00 Febuxostat (Uloric) 80 mg DAILY PO Last administered on 03/30/18 12:14; Admin Dose 80 MG; Start 03/21/18 at 09:00 Hydralazine HCl (Apresoline) 50 mg BID PO Last administered on 03/30/18 08:25; Admin Dose 50 MG; Start 03/20/18 at 21:00 Isosorbide Mononitrate (Imdur) 30 mg DAILY PO Last administered on 03/30/18 08:26; Admin Dose 30 MG; Start 03/21/18 at 09:00 Fish Oil (Fish Oil) 2,000 mg BID PO Last administered on 03/30/18 08:27; Admin Dose 2,000 MG; Start 03/20/18 at 21:00 IV Flush (NS 3 ml) 3 ml PER PROTOCOL IV ; Start 03/20/18 at 19:30 Pantoprazole (Protonix Tab) 40 mg DAILY@06 PO Last administered on 03/30/18 05:41; Admin Dose 40 MG; Start 03/21/18 at 06:00 Enoxaparin Sodium (Lovenox) 30 mg DAILY SC Last administered on 03/30/18 08:39; Admin Dose 30 MG; Start 03/21/18 at 09:00 Diagnostic Test (Pha) (Accu-Chek) 1 ea 02 XX Last administered on 03/26/18 02:32; Admin Dose 1 EA; Start 03/21/18 at 02:00 Insulin Aspart (Novolog Insulin Pen) NOVOLOG *MODERATE* ALGORITHM WITH MEALS BEDTIME SC Last administered on 03/30/18 12:16; Admin Dose 6 UNIT; Start 03/20/18 at 21:00 Miscellaneous Information 1 ea NOTE XX ; Start 03/20/18 at 20:00 Glucose (Glutose) 15 gm Q15M PRN PO DECREASED GLUCOSE Last administered on 03/27/18at 05:35; Admin Dose 15 GM; Start 03/20/18 at 20:00 Glucose (Glutose) 22.5 gm Q15M PRN PO DECREASED GLUCOSE; Start 03/20/18 at 20:00 Dextrose (D50w Syringe) 25 ml Q15M PRN IV DECREASED GLUCOSE; Start 03/20/18 at 20:00 Dextrose (D50w Syringe) 50 ml Q15M PRN IV DECREASED GLUCOSE; Start 03/20/18 at 20:00 Glucagon (Glucagen) 1 mg Q15M PRN IM DECREASED GLUCOSE; Start 03/20/18 at 20:00 Glucose (Glutose) 15 gm Q15M PRN BUCCAL DECREASED GLUCOSE; Start 03/20/18 at 20:00 Nitroglycerin (Nitroglycerin (Sl Tab) 0.4 Mg) 1 tab PRN PRN SL CHEST PAIN Last administered on 03/21/18at 00:20; Admin Dose 1 TAB; Start 03/21/18 at 00:00 Hydralazine HCl (Apresoline) 10 mg Q6H PRN IV SBP>160 Last administered on 03/22/18at 00:28; Admin Dose 10 MG; Start 03/21/18 at 15:00 Tramadol HCl (Ultram) 50 mg Q6H PRN PO MODERATE PAIN LEVEL 4-6 Last administered on 03/28/18at 06:29; Admin Dose 50 MG; Start 03/22/18 at 09:30 Carvedilol (Coreg) 6.25 mg BID PO Last administered on 03/30/18at 08:26; Admin Dose 6.25 MG; Start 03/22/18 at 21:00 Polyethylene Glycol (Miralax) 17 gm BID PO Last administered on 03/30/18 08:25; Admin Dose 17 GM; Start 03/24/18 at 16:00 Bisacodyl (Dulcolax) 10 mg DAILY PRN PO CONSTIPATION Last administered on 03/26/18at 08:04; Admin Dose 10 MG; Start 03/24/18 at 14:30 Bumetanide (Bumex) 1 mg DAILY PO Last administered on 03/26/18at 08:50; Admin D ose 1 MG; Start 03/26/18 at 09:00; Status Hold Nifedipine (Procardia Xl) 30 mg DAILY PO Last administered on 03/30/18at 08:26; Admin Dose 30 MG; Start 03/27/18 at 19:00 Insulin Glargine (Lantus) 18 units DAILY@2000 SC Last administered on 03/29/18at 20:50; Admin Dose 18 UNITS; Start 03/28/18 at 20:00 Insulin Aspart (Novolog Insulin Pen) 6 unit AC MEALS SC Last administered on 03/30/18at 12:17; Admin Dose 6 UNIT; Start 03/28/18 at 17:25 Lactobacillus Acidophilus/ Rhamnosus (Culturelle) 1 cap BID PO Last administered on 03/30/18at 08:25; Admin Dose 1 CAP; Start 03/30/18 at 09:00 Agustin Traylor DO Mar 30, 2018 15:49
[2018-03-30] MEDS: ATORVASTATIN 40 MG TAB PO SCH (21:01)
[2018-03-30] MEDS: INSULIN GLARGINE [LANTus] (100 UNITS/ML) SYG SC SCH (21:15)
--- NOTE | 2018-03-30 23:48 | PN ---
Date/Time of Note Date/Time of Note DATE: 03/30/18 TIME: 23:46 Assessment/Plan VTE Prophylaxis Risk score (from Ns)>0 risk: 3 SCD applied (from Ns): No SCD contraindicated: low risk/ambulating Pharmacological prophylaxis: LMWH Lines/Catheters IV Catheter Type (from Nrs): Saline Lock Urinary Cath still in place: No Assessment/Plan Hospital Course A/P 1 Decom S-CHF; stable, try to cont medical care. 2 NSVT; life vest; Refused initially as he felt this was a challenge to use 3 Dm 4 COPD 5 P Tobacco 6 Ischemic CMY 7 Htn 8 Dl 9 CKD IV; avoid piccs; creat better 10. Failure to thrive, may need snf if he agrees; vs home w Hospice 11. Tremors possibly action tremors due to deconditioning/ muscle weakness. Will monitor for parkinsonism. S: 03/27 no distress 03/28: Refused LifeVest as he felt he did not have enough knowledge support to use of the device. I spoke with son who will re-enforced the need for the L ifeVest. Patient may be more comfortable going to a snf until he is more functional. No chest pain dyspnea positive exertional fatigue. No fever. 03/29: no events; pending Hospice eval 03/30: no distress. O: vss PE no pallor/ jvd reg no mrg ctab bs+ nt nd; no r/r/g no edema Result Diagram: 03/29/18 0555 03/30/18 0558 Results 24hrs Laboratory Tests Test 03/30/18 05:58 03/30/18 08:06 03/30/18 12:12 03/30/18 17:18 Sodium Level 136 Potassium Level 4.4 Chloride Level 99 Carbon Dioxide Level 29 Anion Gap 8 Blood Urea Nitrogen 78 H Creatinine 3.12 H Est Glomerular Filtrat Rate mL/min Glucose Level 152 Calcium Level 8.7 Phosphorus Level 4.3 Magnesium Level 2.5 Bedside Glucose 145 227 H 86 Test 03/30/18 17:51 03/30/18 20:50 Bedside Glucose 131 176 Exam/Review of Systems Exam Vitals Vital Signs Date Temp Pulse Resp B/P (MAP) Pulse Ox O2 O2 Flow FiO2 Time Delivery Rate 03/30/18 71 20:00 03/30/18 98.2 18 146/71 98 19:58 (96) 03/30/18 Room Air 15:50 03/30/18 2.0 07:27 Intake and Output 03/29/18 03/29/18 03/30/18 1515:00 23:00 07:00 IntakeIntake Total 800 ml 700 ml OutputOutput Total 750 ml 600 ml 1000 ml BalanceBalance -750 ml 200 ml -300 ml Results Results 24hrs Laboratory Tests Test 03/30/18 05:58 03/30/18 08:06 03/30/18 12:12 03/30/18 17:18 Sodium Level 136 Potassium Level 4.4 Chloride Level 99 Carbon Dioxide Level 29 Anion Gap 8 Blood Urea Nitrogen 78 H Creatinine 3.12 H Est Glomerular Filtrat Rate mL/min Glucose Level 152 Calcium Level 8.7 Phosphorus Level 4.3 Magnesium Level 2.5 Bedside Glucose 145 227 H 86 Test 03/30/18 17:51 03/30/18 20:50 Bedside Glucose 131 176 Medications Medication Current Medications Aspirin (Halfprin) 81 mg DAILY PO Last administered on 03/30/18 08:27; Admin Dose 81 MG; Start 03/21/18 at 09:00 Atorvastatin Calcium (Lipitor) 40 mg QHS PO Last administered on 03/30/18 21:01; Admin Dose 40 MG; Start 03/20/18 at 21:00 Clopidogrel Bisulfate (plaVIX) 75 mg DAILY PO Last administered on 03/30/18 08:27; Admin Dose 75 MG; Start 03/21/18 at 09:00 Febuxostat (Uloric) 80 mg DAILY PO Last administered on 03/30/18 12:14; Admin Dose 80 MG; Start 03/21/18 at 09:00 Hydralazine HCl (Apresoline) 50 mg BID PO Last administered on 03/30/18 21:02; Admin Dose 50 MG; Start 03/20/18 at 21:00 Isosorbide Mononitrate (Imdur) 30 mg DAILY PO Last administered on 03/30/18 08:26; Admin Dose 30 MG; Start 03/21/18 at 09:00 Fish Oil (Fish Oil) 2,000 mg BID PO Last administered on 03/30/18 21:01; Admin Dose 2,000 MG; Start 03/20/18 at 21:00 IV Flush (NS 3 ml) 3 ml PER PROTOCOL IV ; Start 03/20/18 at 19:30 Pantoprazole (Protonix Tab) 40 mg DAILY@06 PO Last administered on 03/30/18at 05:41; Admin Dose 40 MG; Start 03/21/18 at 06:00 Enoxaparin Sodium (Lovenox) 30 mg DAILY SC Last administered on 03/30/18at 08:39; Admin Dose 30 MG; Start 03/21/18 at 09:00 Diagnostic Test (Pha) (Accu-Chek) 1 ea 02 XX Last administered on 03/26/18at 02:32; Admin Dose 1 EA; Start 03/21/18 at 02:00 Insulin Aspart (Novolog Insulin Pen) NOVOLOG *MODERATE* ALGORITHM WITH MEALS BEDTIME SC Last administered on 03/30/18at 12:16; Admin Dose 6 UNIT; Start 03/20/18 at 21:00 Miscellaneous Information 1 ea NOTE XX ; Start 03/20/18 at 20:00 Glucose (Glutose) 15 gm Q15M PRN PO DECREASED GLUCOSE Last administered on 03/27/18at 05:35; Admin Dose 15 GM; Start 03/20/18 at 20:00 Glucose (Glutose) 22.5 gm Q15M PRN PO DECREASED GLUCOSE; Start 03/20/18 at 20:00 Dextrose (D50w Syringe) 25 ml Q15M PRN IV DECREASED GLUCOSE; Start 03/20/18 at 20:00 Dextrose (D50w Syringe) 50 ml Q15M PRN IV DECREASED GLUCOSE; Start 03/20/18 at 20:00 Glucagon (Glucagen) 1 mg Q15M PRN IM DECREASED GLUCOSE; Start 03/20/18 at 20:00 Glucose (Glutose) 15 gm Q15M PRN BUCCAL DECREASED GLUCOSE; Start 03/20/18 at 20:00 Nitroglycerin (Nitroglycerin (Sl Tab) 0.4 Mg) 1 tab PRN PRN SL CHEST PAIN Last administered on 03/21/18at 00:20; Admin Dose 1 TAB; Start 03/21/18 at 00:00 Hydralazine HCl (Apresoline) 10 mg Q6H PRN IV SBP>160 Last administered on 03/22/18at 00:28; Admin Dose 10 MG; Start 03/21/18 at 15:00 Tramadol HCl (Ultram) 50 mg Q6H PRN PO MODERATE PAIN LEVEL 4-6 Last admini stered on 03/28/18 06:29; Admin Dose 50 MG; Start 03/22/18 at 09:30 Carvedilol (Coreg) 6.25 mg BID PO Last administered on 03/30/18 21:02; Admin Dose 6.25 MG; Start 03/22/18 at 21:00 Polyethylene Glycol (Miralax) 17 gm BID PO Last administered on 03/30/18 21:03; Admin Dose 17 GM; Start 03/24/18 at 16:00 Bisacodyl (Dulcolax) 10 mg DAILY PRN PO CONSTIPATION Last administered on 03/26/18 08:04; Admin Dose 10 MG; Start 03/24/18 at 14:30 Bumetanide (Bumex) 1 mg DAILY PO Last administered on 03/26/18 08:50; Admin Dose 1 MG; Start 03/26/18 at 09:00; Status Hold Nifedipine (Procardia Xl) 30 mg DAILY PO Last administered on 03/30/18 08:26; Admin Dose 30 MG; Start 03/27/18 at 19:00 Insulin Glargine (Lantus) 18 units DAILY@2000 SC Last administered on 03/30/18 21:15; Admin Dose 18 UNITS; Start 03/28/18 at 20:00 Insulin Aspart (Novolog Insulin Pen) 6 unit AC MEALS SC Last administered on 03/30/18 17:54; Admin Dose 6 UNIT; Start 03/28/18 at 17:25 Lactobacillus Acidophilus/ Rhamnosus (Culturelle) 1 cap BID PO Last administered on 03/30/18 21:02; Admin Dose 1 CAP; Start 03/30/18 at 09:00 CHUY HORTON MD Mar 30, 2018 23:48
[2018-03-31] VITALS (13 sets, daily range): BP systolic 130–169; BP diastolic 61–86; PULSE 63–87; RESP 18
[2018-03-31] MEDS: ACCU-CHEK XX SCH (02:00)
--- NOTE | 2018-03-31 07:39 | CONS ---
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% Ventricular tachycardia Acute kidney injury with history of CKD Hypertension -CHF improved - off bumex -Please refer to cardiology progress note 03/28/2018 discussing LifeVest and patient's refusal -Maintain potassium above 4.0 and magnesium above 2.0 -Continue beta-abraham as heart rate and blood pressure permits -DC planning Consultation Date/Type/Reason Admit Date/Time Mar 20, 2018 at 19:05 Initial Consult Date Type of Consult Cardiology Date/Time of Note DATE: 03/31/18 TIME: 07:39 24 HR Interval Summary Free Text/Dictation The patient stable overnight Exam/Review of Systems Vital Signs Vitals Vital Signs Date Temp Pulse Resp B/P (MAP) Pulse Ox O2 O2 Flow FiO2 Time Delivery Rate 03/31/18 98.5 73 18 161/78 95 07:11 (105) 03/30/18 Nasal 2.0 20:00 Cannula Intake and Output 03/30/18 03/30/18 03/31/18 1515:00 23:00 07:00 IntakeIntake Total 620 ml 500 ml OutputOutput Total 5 ml 1100 ml BalanceBalance 615 ml -600 ml Labs Result Diagram: 03/29/18 0555 03/31/18 0622 Results 24hrs Laboratory Tests Test 03/30/18 08:06 03/30/18 12:12 03/30/18 17:18 03/30/18 17:51 Bedside Glucose 145 227 H 86 131 Test 03/30/18 20:50 03/31/18 02:25 03/31/18 06:22 Bedside Glucose 176 194 Sodium Level 139 Potassium Level 4.3 Chloride Level 102 Carbon Dioxide Level 27 Anion Gap 10 Blood Urea Nitrogen 80 H Creatinine 3.01 H Est Glomerular Filtrat Rate mL/min Glucose Level 130 Calcium Level 9.0 Phosphorus Level 4.3 Magnesium Level 2.5 Medications Medications Current Medications Aspirin (Halfprin) 81 mg DAILY PO Last administered on 03/30/18at 08:27; Admin Dose 81 MG; Start 03/21/18 at 09:00 Atorvastatin Calcium (Lipitor) 40 mg QHS PO Last administered on 03/30/18at 21:01; Admin Dose 40 MG; Start 03/20/18 at 21:00 Clopidogrel Bisulfate (plaVIX) 75 mg DAILY PO Last administered on 03/30/18 08:27; Admin Dose 75 MG; Start 03/21/18 at 09:00 Febuxostat (Uloric) 80 mg DAILY PO Last administered on 03/30/18 12:14; Admin Dose 80 MG; Start 03/21/18 at 09:00 Hydralazine HCl (Apresoline) 50 mg BID PO Last administered on 03/30/18 21:02; Admin Dose 50 MG; Start 03/20/18 at 21:00 Isosorbide Mononitrate (Imdur) 30 mg DAILY PO Last administered on 03/30/18 08:26; Admin Dose 30 MG; Start 03/21/18 at 09:00 Fish Oil (Fish Oil) 2,000 mg BID PO Last administered on 03/30/18 21:01; Admin Dose 2,000 MG; Start 03/20/18 at 21:00 IV Flush (NS 3 ml) 3 ml PER PROTOCOL IV ; Start 03/20/18 at 19:30 Pantoprazole (Protonix Tab) 40 mg DAILY@06 PO Last administered on 03/30/18 05:41; Admin Dose 40 MG; Start 03/21/18 at 06:00 Enoxaparin Sodium (Lovenox) 30 mg DAILY SC Last administered on 03/30/18 08:39; Admin Dose 30 MG; Start 03/21/18 at 09:00 Diagnostic Test (Pha) (Accu-Chek) 1 ea 02 XX Last administered on 03/31/18 02:00; Admin Dose 1 EA; Start 03/21/18 at 02:00 Insulin Aspart (Novolog Insulin Pen) NOVOLOG *MODERATE* ALGORITHM WITH MEALS BEDTIME SC Last administered on 03/30/18 12:16; Admin Dose 6 UNIT; Start 03/20/18 at 21:00 Miscellaneous Information 1 ea NOTE XX ; Start 03/20/18 at 20:00 Glucose (Glutose) 15 gm Q15M PRN PO DECREASED GLUCOSE Last administered on 03/27/18 05:35; Admin Dose 15 GM; Start 03/20/18 at 20:00 Glucose (Glutose) 22.5 gm Q15M PRN PO DECREASED GLUCOSE; Start 03/20/18 at 20:00 Dextrose (D50w Syringe) 25 ml Q15M PRN IV DECREASED GLUCOSE; Start 03/20/18 at 20:00 Dextrose (D50w Syringe) 50 ml Q15M PRN IV DECREASED GLUCOSE; Start 03/20/18 at 20:00 Glucagon (Glucagen) 1 mg Q15M PRN IM DECREASED GLUCOSE; Start 03/20/18 at 20:00 Glucose (Glutose) 15 gm Q15M PRN BUCCAL DECREASED GLUCOSE; Start 03/20/18 at 20:00 Nitroglycerin (Nitroglycerin (Sl Tab) 0.4 Mg) 1 tab PRN PRN SL CHEST PAIN Last administered on 03/21/18 00:20; Admin Dose 1 TAB; Start 03/21/18 at 00:00 Hydralazine HCl (Apresoline) 10 mg Q6H PRN IV SBP>160 Last administered on 03/22/18at 00:28; Admin Dose 10 MG; Start 03/21/18 at 15:00 Tramadol HCl (Ultram) 50 mg Q6H PRN PO MODERATE PAIN LEVEL 4-6 Last administered on 03/28/18 06:29; Admin Dose 50 MG; Start 03/22/18 at 09:30 Carvedilol (Coreg) 6.25 mg BID PO Last administered on 03/30/18 21:02; Admin Dose 6.25 MG; Start 03/22/18 at 21:00 Polyethylene Glycol (Miralax) 17 gm BID PO Last administered on 03/30/18 21:03; Admin Dose 17 GM; Start 03/24/18 at 16:00 Bisacodyl (Dulcolax) 10 mg DAILY PRN PO CONSTIPATION Last administered on 03/26/18 08:04; Admin Dose 10 MG; Start 03/24/18 at 14:30 Bumetanide (Bumex) 1 mg DAILY PO Last administered on 03/26/18 08:50; Admin Dose 1 MG; Start 03/26/18 at 09:00; Status Hold Nifedipine (Procardia Xl) 30 mg DAILY PO Last administered on 03/30/18 08:26; Admin Dose 30 MG; Start 03/27/18 at 19:00 Insulin Glargine (Lantus) 18 units DAILY@2000 SC Last administered on 03/30/18 21:15; Admin Dose 18 UNITS; Start 03/28/18 at 20:00 Insulin Aspart (Novolog Insulin Pen) 6 unit AC MEALS SC Last administered on 03/30/18at 17:54; Admin Dose 6 UNIT; Start 03/28/18 at 17:25 Lactobacillus Acidophilus/ Rhamnosus (Culturelle) 1 cap BID PO Last a dministered on 03/30/18at 21:02; Admin Dose 1 CAP; Start 03/30/18 at 09:00 PAIGE BRAND MD Mar 31, 2018 07:39
[2018-03-31] MEDS: PANTOPRAZOLE (EC) 40 MG TAB PO SCH (07:40)
[2018-03-31] MEDS: INSULIN ASPART [NOVOLOG] 3 ML PEN SC SCH ×7 (07:55→21:00)
[2018-03-31] MEDS: ASPIRIN (EC) 81 MG TAB PO SCH (09:04)
[2018-03-31] MEDS: FISH OIL 1,000 MG CAP PO SCH ×2 (09:04→20:34)
[2018-03-31] MEDS: CLOPIDOGREL 75 MG TAB PO SCH (09:04)
[2018-03-31] MEDS: POLYETHYLENE GLYCOL 17 GM PACKET PO SCH ×2 (09:05→20:38)
[2018-03-31] MEDS: NIFEdipine (XL) 30 MG TAB PO SCH (09:05)
[2018-03-31] MEDS: ISOSORBIDE MONONITRATE(SR)30 MG TAB PO SCH (09:05)
[2018-03-31] MEDS: ENOXAPARIN 30 MG/0.3 ML SYG SC SCH (09:06)
[2018-03-31] MEDS: FEBUXOSTAT 40 MG TABLET PO SCH (09:06)
[2018-03-31] MEDS: BUMETANIDE 1 MG TAB PO SCH (09:33)
[2018-03-31] MEDS: LACTOBACILLUS RHAMNOSUS CAP PO SCH ×2 (09:33→20:34)
--- NOTE | 2018-03-31 11:29 | PN ---
DATE: 03/31/2018 SUBJECTIVE: The patient is stable. No events overnight. OBJECTIVE: VITAL SIGNS: Blood pressure is 161/78, pulse 73, respiration 18, temperature 98.5. HEENT: Head is normocephalic. NECK: Supple. HEART: Regular rate. LUNGS: Show diminished breath sounds at the base. ABDOMEN: Soft, nontender to palpation without rebound or guarding. EXTREMITIES: Negative for clubbing, cyanosis, no edema. DERMATOLOGIC: No rashes. MUSCULOSKELETAL: No joint effusion. NEUROLOGIC: No change in exam. MEDICATIONS: Reviewed. LABORATORY DATA: From 03/31/2018 was reviewed. The patient's BUN 80, creatinine 3.0. ASSESSMENT AND PLAN: 1. Nonoliguric acute kidney injury on top of chronic kidney disease stage IV with previous baseline creatinine around 2.5 to 2.7 mg/dL. Etiology of acute kidney injury is secondary to hemodynamics, ca rdiorenal syndrome. The patient's renal function has returned to baseline. Will resume diuretic the rapy, monitor closely. 2. Anemia. Monitor hemoglobin and hematocrit levels. 3. Mineral bone disorder, monitor calcium and phosphorus levels. 4. Chronic kidney disease stage IV secondary to hypertension and diabetic nephropathy. The patient is currently in acute kidney injury as stated above. Continue treatment plan. Continue disease fact or modification. 5. Acute respiratory failure secondary to congestive heart failure. The patient is clinically impro lucero. 6. Acute congestive heart failure. Patient appears euvolemic. Continue low dose diuretic therapy, maintain euvolemic status. 8. History of arrhythmia. The patient is refusing LifeVest. 9. Diabetes. Continue current insulin regimen. 10. Hypertension. Continue current blood pressure regimen. 11. History of coronary artery disease. 12. Dyslipidemia. 13. Tremors. Continue to monitor. Dictated By: CHRISTOPHER MARIO DO NR/NTS Conf#: [id number] DID#: [id number] CC: ANGELIQUE ALVARES MD;*End*
--- NOTE | 2018-03-31 15:29 | PN ---
Date/Time of Note Date/Time of Note DATE: 03/31/18 TIME: 15:25 Assessment/Plan VTE Prophylaxis Risk score (from Ns)>0 risk: 3 SCD applied (from Ns): No SCD contraindicated: low risk/ambulating Pharmacological prophylaxis: LMWH Lines/Catheters IV Catheter Type (from Nrs): Saline Lock Urinary Cath still in place: No Assessment/Plan Hospital Course A/P 1 Decom S-CHF; stable, try to cont medical care. 2 NSVT; life vest; Refused twice. gave him the option of snf/ nursing & education from [employer]/ Rep. 3 Dm 4 COPD 5 P Tobacco 6 Ischemic CMY; not a candidate for aicd 7 Htn 8 Dl 9 CKD IV; avoid piccs; creat better 10. Ftt, snf if he agrees; vs home health. If he refuses LifeVest, then Home w Hospice 11. Tremors, more so action tremors, than resting tremors which are seen in parkinsonism. cont to monitor S: 03/27 no distress 03/28: Refused LifeVest as he felt he did not have enough knowledge support to use of the device. I spoke with son who will re-enforced the need for the LifeVest. Patient may be more comfortable going to a snf until he is more functional. No chest pain dyspnea positive exertional fatigue. No fever. 03/29: no events; pending Hospice eval 03/30: no distress. 03/31: spoke w pt w interperter. still refusing Vest. Asked him to consider Hospice if unable to tolerate medical therapy O: vss PE no pallor/ jvd reg no mrg ctab bs+ nt nd; no r/r/g no edema Result Diagram: 03/29/18 0555 03/31/18 0622 Results 24hrs Laboratory Tests Test 03/30/18 17:18 03/30/18 17:51 03/30/18 20:50 03/31/18 02:25 Bedside Glucose 86 131 176 194 Test 03/31/18 06:22 03/31/18 08:10 03/31/18 11:49 Sodium Level 139 Potassium Level 4.3 Chloride Level 102 Carbon Dioxide Level 27 Anion Gap 10 Blood Urea Nitrogen 80 H Creatinine 3.01 H Est Glomerular Filtrat Rate mL/min Glucose Level 130 Calcium Level 9.0 Phosphorus Level 4.3 Magnesium Level 2.5 Bedside Glucose 117 206 Exam/Review of Systems Exam Vitals Vital Signs Date Temp Pulse Resp B/P (MAP) Pulse Ox O2 O2 Flow FiO2 Time Delivery Rate 03/31/18 98.4 71 18 130/72 97 15:16 (91) 03/31/18 Nasal 2.0 08:00 Cannula Intake and Output 03/30/18 03/30/18 03/31/18 1515:00 23:00 07:00 IntakeIntake Total 620 ml 500 ml OutputOutput Total 5 ml 1100 ml BalanceBalance 615 ml -600 ml Results Results 24hrs Laboratory Tests Test 03/30/18 17:18 03/30/18 17:51 03/30/18 20:50 03/31/18 02:25 Bedside Glucose 86 131 176 194 Test 03/31/18 06:22 03/31/18 08:10 03/31/18 11:49 Sodium Level 139 Potassium Level 4.3 Chloride Level 102 Carbon Dioxide Level 27 Anion Gap 10 Blood Urea Nitrogen 80 H Creatinine 3.01 H Est Glomerular Filtrat Rate mL/min Glucose Level 130 Calcium Level 9.0 Phosphorus Level 4.3 Magnesium Level 2.5 Bedside Glucose 117 206 Medications Medication Current Medications Aspirin (Halfprin) 81 mg DAILY PO Last administered on 03/31/18 09:04; Admin Dose 81 MG; Start 03/21/18 at 09:00 Atorvastatin Calcium (Lipitor) 40 mg QHS PO Last administered on 03/30/18 21:01; Admin Dose 40 MG; Start 03/20/18 at 21:00 Clopidogrel Bisulfate (plaVIX) 75 mg DAILY PO Last administered on 03/31/18 09:04; Admin Dose 75 MG; Start 03/21/18 at 09:00 Febuxostat (Uloric) 80 mg DAILY PO Last administered on 03/31/18 09:06; Admin Dose 80 MG; Start 03/21/18 at 09:00 Hydralazine HCl (Apresoline) 50 mg BID PO Last administered on 03/31/18 09:04; Admin Dose 50 MG; Start 03/20/18 at 21:00 Isosorbide Mononitrate (Imdur) 30 mg DAILY PO Last administered on 03/31/18 09:05; Admin Dose 30 MG; Start 03/21/18 at 09:00 Fish Oil (Fish Oil) 2,000 mg BID PO Last administered on 03/31/18at 09:04; Admin Dose 2,000 MG; Start 03/20/18 at 21:00 IV Flush (NS 3 ml) 3 ml PER PROTOCOL IV ; Start 03/20/18 at 19:30 Pantoprazole (Protonix Tab) 40 mg DAILY@06 PO Last administered on 03/31/18 07:40; Admin Dose 40 MG; Start 03/21/18 at 06:00 Enoxaparin Sodium (Lovenox) 30 mg DAILY SC Last administered on 03/31/18at 09:06; Admin Dose 30 MG; Start 03/21/18 at 09:00 Diagnostic Test (Pha) (Accu-Chek) 1 ea 02 XX Last administered on 03/31/18at 02:00; Admin Dose 1 EA; Start 03/21/18 at 02:00 Insulin Aspart (Novolog Insulin Pen) NOVOLOG *MODERATE* ALGORITHM WITH MEALS BEDTIME SC Last administered on 03/31/18at 11:51; Admin Dose 4 UNIT; Start 03/20/18 at 21:00 Miscellaneous Information 1 ea NOTE XX ; Start 03/20/18 at 20:00 Glucose (Glutose) 15 gm Q15M PRN PO DECREASED GLUCOSE Last administered on 03/27/18at 05:35; Admin Dose 15 GM; Start 03/20/18 at 20:00 Glucose (Glutose) 22.5 gm Q15M PRN PO DECREASED GLUCOSE; Start 03/20/18 at 20:00 Dextrose (D50w Syringe) 25 ml Q15M PRN IV DECREASED GLUCOSE; Start 03/20/18 at 20:00 Dextrose (D50w Syringe) 50 ml Q15M PRN IV DECREASED GLUCOSE; Start 03/20/18 at 20:00 Glucagon (Glucagen) 1 mg Q15M PRN IM DECREASED GLUCOSE; Start 03/20/18 at 20:00 Glucose (Glutose) 15 gm Q15M PRN BUCCAL DECREASED GLUCOSE; Start 03/20/18 at 20:00 Nitroglycerin (Nitroglycerin (Sl Tab) 0.4 Mg) 1 tab PRN PRN SL CHEST PAIN Last administered on 03/21/18at 00:20; Admin Dose 1 TAB; Start 03/21/18 at 00:00 Hydralazine HCl (Apresoline) 10 mg Q6H PRN IV SBP>160 Last administered on 03/22/18 00:28; Admin Dose 10 MG; Start 03/21/18 at 15:00 Tramadol HCl (Ultram) 50 mg Q6H PRN PO MODERATE PAIN LEVEL 4-6 Last administered on 03/28/18 06:29; Admin Dose 50 MG; Start 03/22/18 at 09:30 Carvedilol (Coreg) 6.25 mg BID PO Last administered on 03/31/18 09:05; Admin Dose 6.25 MG; Start 03/22/18 at 21:00 Polyethylene Glycol (Miralax) 17 gm BID PO Last administered on 03/31/18 09:05; Admin Dose 17 GM; Start 03/24/18 at 16:00 Bisacodyl (Dulcolax) 10 mg DAILY PRN PO CONSTIPATION Last administered on 03/26/18 08:04; Admin Dose 10 MG; Start 03/24/18 at 14:30 Bumetanide (Bumex) 1 mg DAILY PO Last administered on 03/31/18 09:33; Admin Dose 1 MG; Start 03/26/18 at 09:00 Insulin Glargine (Lantus) 18 units DAILY@2000 SC Last administered on 03/30/18 21:15; Admin Dose 18 UNITS; Start 03/28/18 at 20:00 Insulin Aspart (Novolog Insulin Pen) 6 unit AC MEALS SC Last administered on 03/31/18 11:50; Admin Dose 6 UNIT; Start 03/28/18 at 17:25 Lactobacillus Acidophilus/ Rhamnosus (Culturelle) 1 cap BID PO Last administered on 03/31/18 09:33; Admin Dose 1 CAP; Start 03/30/18 at 09:00 Nifedipine (Procardia Xl) 60 mg DAILY PO ; Start 04/01/18 at 09:00 CHUY HORTON MD Mar 31, 2018 15:29
[2018-03-31] MEDS: ATORVASTATIN 40 MG TAB PO SCH (20:34)
[2018-03-31] MEDS: INSULIN GLARGINE [LANTus] (100 UNITS/ML) SYG SC SCH (20:47)
[2018-04-01] VITALS (11 sets, daily range): BP systolic 122–160; BP diastolic 63–82; PULSE 62–74; RESP 15–19
[2018-04-01] MEDS: ACCU-CHEK XX SCH (02:00)
[2018-04-01] MEDS: PANTOPRAZOLE (EC) 40 MG TAB PO SCH (06:03)
[2018-04-01] MEDS: INSULIN ASPART [NOVOLOG] 3 ML PEN SC SCH ×7 (07:55→21:23)
[2018-04-01] MEDS: LACTOBACILLUS RHAMNOSUS CAP PO SCH ×2 (08:28→21:09)
[2018-04-01] MEDS: CLOPIDOGREL 75 MG TAB PO SCH (08:29)
[2018-04-01] MEDS: ISOSORBIDE MONONITRATE(SR)30 MG TAB PO SCH (08:29)
[2018-04-01] MEDS: BUMETANIDE 1 MG TAB PO SCH (08:29)
[2018-04-01] MEDS: ASPIRIN (EC) 81 MG TAB PO SCH (08:30)
[2018-04-01] MEDS: NIFEdipine (XL) 60 MG TAB PO SCH (08:30)
[2018-04-01] MEDS: POLYETHYLENE GLYCOL 17 GM PACKET PO SCH ×2 (08:31→21:00)
[2018-04-01] MEDS: FISH OIL 1,000 MG CAP PO SCH ×2 (08:31→21:09)
[2018-04-01] MEDS: ENOXAPARIN 30 MG/0.3 ML SYG SC SCH (08:39)
[2018-04-01] MEDS: FEBUXOSTAT 40 MG TABLET PO SCH (10:40)
--- NOTE | 2018-04-01 15:15 | PN ---
DATE: 04/01/2018 SUBJECTIVE: The patient is stable, no events overnight. OBJECTIVE: VITAL SIGNS: Blood pressure is 148/82, pulse 68, respirations 16, temperature 97.7. HEENT: Head is normocephalic. NECK: Supple. HEART: Regular rate. LUNGS: Show diminished breath sounds at the base. ABDOMEN: Soft, nontender to palpation, no rebound or guarding. EXTREMITIES: Negative for clubbing, cyanosis. No edema. DERMATOLOGIC: No rashes. MUSCULOSKELETAL: No joint effusion. NEUROLOGIC: No change in exam. MEDICATIONS: Reviewed. LABORATORY DATA: From 03/31/2018 was reviewed. ASSESSMENT AND PLAN: 1. Nonoliguric acute kidney injury on top of chronic kidney disease stage IV, with previous baseline creatinine 2.5 to 2.7 mg/dL. Etiology of acute kidney injury is secondary to hemodynamics, cardiore nal syndrome. The patient's renal function is returning to baseline. Will continue current treatmen t plan, supportive care, and renally dose all medications. 2. Anemia. Monitor hemoglobin and hematocrit levels. 3. Mineral bone disorder. Monitor calcium and phosphorus levels. 4. Chronic kidney disease, stage IV, secondary to hypertension and diabetic nephropathy. The cintia t is currently in acute kidney injury as stated above. Continue current treatment plan. Continue di sease factor modification. 5. Acute respiratory failure secondary to congestive heart failure. The patient is clinically impro ving. Continue low-dose diuretic therapy. 6. Acute congestive heart failure. Continue medical management. 7. History of arrhythmia. The patient is refusing LifeVest. Continue to monitor. 8. Diabetes. Continue current insulin regimen. 9. Hypertension. Continue current blood pressure regimen. 10. Coronary artery disease. 11. Dyslipidemia. 12. Tremors. Continue to monitor. Dictated By: CHRISTOPHER ROSADO/NTS Conf#: [id number] DID#: [id number]
--- NOTE | 2018-04-01 15:45 | PDOCDIS ---
Discharge Instructions CONDITION [id number] Patient Condition: Skckf5p Fair HOME CARE INSTRUCTIONS: [id number] Diet Instructions: Aezfi1i Low Fat /Cholesterol [id number] Special Diet: Kmgby0s and low salt ACTIVITY: [id number] Activity Restrictions: Ebrad7s Slowly Increase Activity Do not Drive FOLLOW UP/APPOINTMENTS Follow-up Plan appt Dr Traylor 1wk. PCP 1wk. Please meet with [facility] to discuss hospice care. CHUY HORTON MD Apr 01, 2018 15:45
[2018-04-01] MEDS ORDERED: PANT40TA4 PO (15:49)
[2018-04-01] MEDS ORDERED: POLY17PO6 PO (15:49)
[2018-04-01] MEDS ORDERED: CARV6.2579 PO (15:49)
[2018-04-01] MEDS ORDERED: THIA100T10 PO (15:49)
[2018-04-01] MEDS ORDERED: NIFEdipine (XL) PO (15:49)
[2018-04-01] MEDS ORDERED: BUME1TAB PO (15:49)
--- NOTE | 2018-04-01 16:49 | DS ---
Date/Time of Note Date/Time of Note DATE: 04/01/18 TIME: 16:42 Discharge Summary Admission/Discharge Info Admit Date/Time Mar 20, 2018 at 19:05 Discharge Date/Time Patient Condition: Fair Consults Kymberly Ruiz Procedures CXR IMPRESSION: 1. Moderate cardiomegaly with the pulmonary vasculature upper normal and the aorta is somewhat tortuous, unchanged. 2. Bibasilar interstitial infiltrates, unchanged which likely represent chronic interstitial scarring. This has progressed from a much earlier study dated 01/26/2014. No effusion or pneumothorax is evident. 3. Mild diffuse degenerative enthesopathy of the thoracic spine, unchanged. Heath Nguyen Physician Date Time 2D ECHO Conclusions Normal left ventricular cavity size. Mild concentric left ventricular hypertrophy. Moderate global left ventricular systolic dysfunction. Ejection fraction is visually estimated at 30 %. Tissue Doppler/Mitral Doppler indices are consistent with impaired relaxation (Stage I diastolic dysfunction). Normal appearance of the mitral valve. Mild mitral valve regurgitation. Normal appearance of the tricuspid valve. No evidence of tricuspid regurgitation. Electronically Signed Hx of Present Illness 72-year-old gentleman admitted with chest pain dyspnea. Hospital Course Hospital course Evaluated and managed for acute decompensated s-CHF. Stable and fit for discharge. Seen by cardio and nephrology. The next step is a LifeVest. Patient refused a LifeVest. Plan is to discharge home and if he changes his mind, LifeVest can be ordered. I updated the patient's son regarding the challenges of medical optimization.. Fortunately/unfortunately we will honor our patient's wishes. He is aware of the risks of not using the vast. Therefore i asked him to consider Hospice. SNF option was refuses also. A/P 1 Decom S-CHF; stable, try medical care. 2 NSVT; life vest; Refused twice. gave him the option of snf/ nursing & education from [employer] Rep. 3 Dm 4 COPD 5 P Tobacco 6 Ischemic CMY; not a candidate for aicd 7 Htn 8 Dl 9 CKD IV; avoid piccs; creat better 10. Ftt, refused snf. home with health. & Hospice 11. Tremors, more so action tremors, than resting tremors which are seen in parkinsonism. cont to monitor S: 03/27 no distress 03/28: Refused LifeVest as he felt he did not have enough knowledge support to use of the device. I spoke with son who will re-enforced the need for the LifeVest. Patient may be more comfortable going to a snf until he is more functional. No chest pain dyspnea positive exertional fatigue. No fever. 03/29: no events; pending Hospice eval 03/30: no distress. 03/31: spoke w pt w interperter. still refusing Vest. Asked him to consider Hospice if unable to tolerate medical therapy 04/01: no distress O: vss PE no pallor/ jvd reg no mrg ctab bs+ nt nd; no r/r/g no edema Home Meds Active Scripts Thiamine* (Thiamine*) 100 Mg Tablet, 100 MG PO DAILY for 30 Days, #30 TAB Prov:CHUY HORTON MD 04/01/18 Bumetanide* (Bumetanide*) 1 Mg Tablet, 1 MG PO DAILY for 15 Days, #15 TAB Prov:CHUY HORTON MD 04/01/18 Pantoprazole* (Pantoprazole*) 40 Mg Tablet.dr, 40 MG PO DAILY@06 for 10 Days, #20 Prov:CHUY HORTON MD 04/01/18 Polyethylene Glycol* (Miralax*) 17 Gm Powd.pack, 17 GM PO BID for 5 Days otc Prov:CHUY HORTON MD 04/01/18 [NIFEdipine (XL)] 60 MG TABSR No Conflict Check, 60 MG PO DAILY for 10 Days, #10 Prov:CHUY HORTON MD 04/01/18 Carvedilol* (Carvedilol*) 6.25 Mg Tablet, 6.25 MG PO BID for 10 Days, #20 TAB Prov:CHUY HORTON MD 04/01/18 [place]-3/Dha/Epa/Fish Oil (FISH OIL EC 1,000 MG SOFTGEL) 1 Each Capsule.dr, 2000 MG PO BID, #30 CAP Prov:JAD SHIN 03/03/17 Clopidogrel Bisulfate (Clopidogrel) 75 Mg Tablet, 75 MG PO DAILY, #30 TAB Prov:JAD SHIN 03/03/17 Reported Medications Isosorbide Mononitrate* (Isosorbide Mononitrate*) 30 Mg Tab.er.24h, 30 MG PO DAILY, TAB 03/20/18 Clopidogrel Bisulfate (Clopidogrel) 75 Mg Tablet, 75 MG PO DAILY, #30 TAB 03/20/18 Febuxostat* (Uloric*) 80 Mg Tablet, 80 MG PO DAILY, TAB 03/20/18 Hydralazine Hcl* (Hydralazine Hcl*) 50 Mg Tab, 50 MG PO BID, #120 TAB 03/04/18 Aspirin* (Aspirin* EC) 81 Mg Tablet., 81 MG PO DAILY, TAB 03/04/18 Liraglutide (Victoza 3-Donnie) 0.6 Mg/0.1 Ml Pen.injctr, 1.8 MG SQ QAM, SYR 03/04/18 Insulin Glargine,Hum.rec.anlog ([place] Solostar) 300 Unit/1 Ml Insuln.pen, 40 UNIT SQ QPM, EA 03/04/18 Atorvastatin* (Atorvastatin*) 40 Mg Tablet, 40 MG PO QHS, #30 TAB 03/04/18 Discontinued Reported Medications Furosemide* (Furosemide*) 40 Mg Tablet, 40 MG PO DAILY, TAB 03/20/18 Omeprazole* (Omeprazole*) 20 Mg Capsule.dr, 20 MG PO DAILY, #30 CAP 02/18/17 Discontinued Scripts Furosemide* (Lasix*) 40 Mg Tablet, 40 MG PO DAILY for 60 Days, #60 TAB 4 Refills Prov:KELY BAUTISTA MD 03/08/18 Follow-up Plan appt Dr Traylor 1wk. PCP 1wk. Please meet with [facility] to discuss hospice care. Primary Care Provider Not On Staff Doctor Time spent on discharge: > 30 minutes Pending Labs Laboratory Tests Test 03/31/18 17:21 03/31/18 20:38 04/01/18 06:57 04/01/18 07:48 Bedside 146 168 107 Glucose mg/dL (70-220) mg/dL (70-220) mg/dL (70-220) Sodium Level 140 mmol/L (135-14 4) Potassium 4.3 Level mmol/L (3.5-5. 1) Chloride Level 105 mmol/L (97-110 ) Carbon Dioxide 27 Level mmol/L (21-31) Anion Gap 8 (5-13) Blood Urea 80 Nitrogen mg/dl (7-20) Creatinine 3.02 mg/dl (0.61-1. 24) Est Glomerular mL/min (>60) Filtrat Rate mL/min Glucose Level 102 mg/dl (70-220) Calcium Level 9.2 mg/dl (8.4-10. 2) Phosphorus 4.6 Level mg/dl (2.5-4.9 ) Magnesium 2.6 Level mg/dl (1.7-2.5 ) Test 04/01/18 11:43 Bedside 137 Glucose mg/dL (70-220) CHUY HORTON MD Apr 01, 2018 16:49
[2018-04-01] MEDS: ATORVASTATIN 40 MG TAB PO SCH (21:09)
[2018-04-01] MEDS: INSULIN GLARGINE [LANTus] (100 UNITS/ML) SYG SC SCH (21:23)
[2018-04-02] VITALS (11 sets, daily range): BP systolic 136–154; BP diastolic 63–84; PULSE 65–79; RESP 19–20
[2018-04-02] MEDS: ACCU-CHEK XX SCH (02:00)
[2018-04-02] MEDS: PANTOPRAZOLE (EC) 40 MG TAB PO SCH (06:27)
[2018-04-02] MEDS: INSULIN ASPART [NOVOLOG] 3 ML PEN SC SCH ×7 (06:31→20:29)
[2018-04-02] MEDS: ISOSORBIDE MONONITRATE(SR)30 MG TAB PO SCH (09:00)
[2018-04-02] MEDS: FEBUXOSTAT 40 MG TABLET PO SCH (09:00)
[2018-04-02] MEDS: POLYETHYLENE GLYCOL 17 GM PACKET PO SCH ×2 (09:00→20:17)
[2018-04-02] MEDS: BUMETANIDE 1 MG TAB PO SCH (09:25)
[2018-04-02] MEDS: ASPIRIN (EC) 81 MG TAB PO SCH (09:25)
[2018-04-02] MEDS: CLOPIDOGREL 75 MG TAB PO SCH (09:25)
[2018-04-02] MEDS: LACTOBACILLUS RHAMNOSUS CAP PO SCH ×2 (09:26→20:17)
[2018-04-02] MEDS: FISH OIL 1,000 MG CAP PO SCH ×2 (09:26→20:16)
[2018-04-02] MEDS: NIFEdipine (XL) 60 MG TAB PO SCH (09:26)
[2018-04-02] MEDS: ENOXAPARIN 30 MG/0.3 ML SYG SC SCH (10:33)
--- NOTE | 2018-04-02 11:23 | PN ---
DATE: 04/02/2018 SUBJECTIVE: The patient is stable. No events overnight. No fevers, chills, nausea, vomiting. OBJECTIVE: VITAL SIGNS: Blood pressure is 141/77, pulse 66, respirations 20, temperature 98.0. HEENT: Head is normocephalic. NECK: Supple. HEART: Regular rate. LUNGS: Show diminished breath sounds at the base. ABDOMEN: Soft, nontender to palpation without rebound or guarding. EXTREMITIES: Negative for clubbing, cyanosis, no edema. DERMATOLOGIC: No rashes. MUSCULOSKELETAL: No joint effusion. NEUROLOGIC: No change in exam. MEDICATIONS: Reviewed. LABORATORY DATA: From 04/02/2018 shows a BUN of 74, creatinine 3.0. ASSESSMENT AND PLAN: 1. Nonoliguric acute kidney injury on top of chronic kidney disease stage IV with previous baseline creatinine of 2.5 to 2.7 mg/dL. Etiology of acute kidney injury is secondary to hemodynamics, cardio renal syndrome. The patient's renal function is returning to baseline. Continue current treatment p alexander, supportive care and renally dose all meds. 2. Anemia. Monitor hemoglobin and hematocrit levels. 3. Mineral bone disorder, monitor calcium and phosphorus levels. 4. Chronic kidney disease stage IV secondary to hypertension and diabetic nephropathy. The patient is currently in acute injury as stated above. Continue current treatment plan. Continue disease fac tor modification. 5. Acute respiratory failure secondary to congestive heart failure. Patient is clinically improving . Continue low-dose diuretic therapy. 6. Acute congestive heart failure. The patient is compensated. Continue medical management. 7. Arrhythmia. The patient is refusing LifeVest. Continue to monitor. 8. Diabetes. Continue current insulin regimen. 9. Hypertension. Continue current blood pressure regimen. 10. Coronary artery disease. 11. Dyslipidemia. 12. Tremors. Continue to monitor. Dictated By: CHRISTOPHER MARIO DO NR/NTS Conf#: [id number] DID#: [id number] CC: ANGELIQUE ALVARES MD; CHUY HORTON MD; JIMY WAYNE DO;*EndCC*
--- NOTE | 2018-04-02 14:18 | DS ---
Date/Time of Note Date/Time of Note DATE: 04/02/18 TIME: 14:15 Discharge Summary Admission/Discharge Info Admit Date/Time Mar 20, 2018 at 19:05 Discharge Date/Time Patient Condition: Fair Consults Consults Kymberly Ruiz Procedures CXR IMPRESSION: 1. Moderate cardiomegaly with the pulmonary vasculature upper normal and the aorta is somewhat tortuous, unchanged. 2. Bibasilar interstitial infiltrates, unchanged which likely represent chronic interstitial scarring. This has progressed from a much earlier study dated 01/26/2014. No effusion or pneumothorax is evident. 3. Mild diffuse degenerative enthesopathy of the thoracic spine, unchanged. 2D ECHO Conclusions Normal left ventricular cavity size. Mild concentric left ventricular hypertrophy. Moderate global left ventricular systolic dysfunction. Ejection fraction is visually estimated at 30 %. Tissue Doppler/Mitral Doppler indices are consistent with impaired relaxation (Stage I diastolic dysfunction). Normal appearance of the mitral valve. Mild mitral valve regurgitation. Normal appearance of the tricuspid valve. No evidence of tricuspid regurgitation. Hx of Present Illness 72-year-old gentleman admitted with chest pain dyspnea. Hospital Course Hospital course Evaluated and managed for acute decompensated s-CHF. Stable and fit for discharge. Seen by cardio and nephrology. The next step is a LifeVest however he has refused a LifeVest. Plan is to discharge home and if he changes his mind, LifeVest can be ordered. I updated the patient's son twice, the last of which I left him a message, regarding the challenges of medical optimization. There was a plan for family meeting yesterday afternoon but son never showed up. Fortunately/unfortunately we will honor our patient's wishes. He is aware of the risks of not using the Vest. Therefore i asked him to consider Hospice. SNF option was refuses also. A/P 1 Decom S-CHF; stable, try medical care. 2 NSVT; life vest; Refused twice. gave him the option of snf/ 24 hr nursing & education from [employer]/ Rep. 3 Dm 4 COPD 5 P Tobacco 6 Ischemic CMY; not a candidate for aicd 7 Htn 8 Dl 9 CKD IV; avoid piccs; creat better 10. Ftt, refused snf. home with health; & Hospice 11. Tremors, more so action tremors, than resting tremors which are seen in parkinsonism. cont to monitor S: 03/27 no distress 03/28: Refused LifeVest as he felt he did not have enough knowledge support to use of the device. I spoke with son who will re-enforced the need for the LifeVest. Patient may be more comfortable going to a snf until he is more functional. No chest pain dyspnea positive exertional fatigue. No fever. 03/29: no events; pending Hospice eval 03/30: no distress. 03/31: spoke w pt w interperter. still refusing Vest. Asked him to consider Hospice if unable to tolerate medical therapy 04/01: no distress /: No distress O: vss PE no pallor/ jvd reg no mrg ctab bs+ nt nd; no r/r/g no edema Home Meds Active Scripts Thiamine* (Thiamine*) 100 Mg Tablet, 100 MG PO DAILY for 30 Days, #30 TAB Prov:CHUY HORTON MD 04/01/18 Bumetanide* (Bumetanide*) 1 Mg Tablet, 1 MG PO DAILY for 15 Days, #15 TAB Prov:CHUY HORTON MD 04/01/18 Pantoprazole* (Pantoprazole*) 40 Mg Tablet., 40 MG PO DAILY@06 for 10 Days, #20 Prov:CHUY HORTON MD 04/01/18 Polyethylene Glycol* (Miralax*) 17 Gm Powd.pack, 17 GM PO BID for 5 Days otc Prov:CHUY HORTON MD 04/01/18 [NIFEdipine (XL)] 60 MG TABSR No Conflict Check, 60 MG PO DAILY for 10 Days, #10 Prov:CHUY HORTON MD 04/01/18 Carvedilol* (Carvedilol*) 6.25 Mg Tablet, 6.25 MG PO BID for 10 Days, #20 TAB Prov:CHUY HORTON MD 04/01/18 [place]-3/Dha/Epa/Fish Oil (FISH OIL EC 1,000 MG SOFTGEL) 1 Each Capsule., 2000 MG PO BID, #30 CAP Prov:JAD SHIN 03/03/17 Clopidogrel Bisulfate (Clopidogrel) 75 Mg Tablet, 75 MG PO DAILY, #30 TAB Prov:JAD SHIN 03/03/17 Reported Medications Isosorbide Mononitrate* (Isosorbide Mononitrate*) 30 Mg Tab.er.24h, 30 MG PO DAILY, TAB 03/20/18 Clopidogrel Bisulfate (Clopidogrel) 75 Mg Tablet, 75 MG PO DAILY, #30 TAB 03/20/18 Febuxostat* (Uloric*) 80 Mg Tablet, 80 MG PO DAILY, TAB 03/20/18 Hydralazine Hcl* (Hydralazine Hcl*) 50 Mg Tab, 50 MG PO BID, #120 TAB 03/04/18 Aspirin* (Aspirin* EC) 81 Mg Tablet.dr, 81 MG PO DAILY, TAB 03/04/18 Liraglutide (Victoza 3-Donnie) 0.6 Mg/0.1 Ml Pen.injctr, 1.8 MG SQ QAM, SYR 03/04/18 Insulin Glargine,Hum.rec.anlog ([place] Solostalan) 300 Unit/1 Ml Insuln.pen, 40 UNIT SQ QPM, EA 03/04/18 Atorvastatin* (Atorvastatin*) 40 Mg Tablet, 40 MG PO QHS, #30 TAB 03/04/18 Discontinued Reported Medications Furosemide* (Furosemide*) 40 Mg Tablet, 40 MG PO DAILY, TAB 03/20/18 Omeprazole* (Omeprazole*) 20 Mg Capsule.dr, 20 MG PO DAILY, #30 CAP 02/18/17 Discontinued Scripts Furosemide* (Lasix*) 40 Mg Tablet, 40 MG PO DAILY for 60 Days, #60 TAB 4 Refills Prov:KELY BAUTISTA MD 03/08/18 Follow-up Plan appt Dr Traylor 1wk. PCP 1wk. Please meet with [facility] to discuss hospice care. Primary Care Provider Not On Staff Doctor Time spent on discharge: < 30 minutes Pending Labs Laboratory Tests Test 04/01/18 17:24 04/01/18 21:08 04/02/18 02:30 04/02/18 05:44 Bedside 143 184 131 Glucose mg/dL (70-220) mg/dL (70-220) mg/dL (70-220) Sodium Level 141 mmol/L (135-14 4) Potassium 4.2 Level mmol/L (3.5-5. 1) Chloride Level 100 mmol/L (97-110 ) Carbon Dioxide 29 Level mmol/L (21-31) Anion Gap 12 (5-13) Blood Urea 74 Nitrogen mg/dl (7-20) Creatinine 3.00 mg/dl (0.61-1. 24) Est Glomerular mL/min (>60) Filtrat Rate mL/min Glucose Level 105 mg/dl (70-220) Calcium Level 9.1 mg/dl (8.4-10. 2) Phosphorus 4.4 Level mg/dl (2.5-4.9 ) Magnesium 2.3 Level mg/dl (1.7-2.5 ) Test 04/02/18 08:26 04/02/18 09:58 04/02/18 12:11 Bedside 65 220 160 Glucose mg/dL (70-220) mg/dL (70-220) mg/dL (70-220) CHUY HORTON MD Apr 02, 2018 14:18
[2018-04-02] MEDS: ATORVASTATIN 40 MG TAB PO SCH (20:17)
[2018-04-02] MEDS: INSULIN GLARGINE [LANTus] (100 UNITS/ML) SYG SC SCH (20:29)
[2018-04-02] MEDS ORDERED: traZODone 50 MG TAB PO PRN (22:30)
[2018-04-03] VITALS (8 sets, daily range): BP systolic 127–150; BP diastolic 63–81; PULSE 59–70; RESP 19–22
[2018-04-03] MEDS: ACCU-CHEK XX SCH (01:06)
[2018-04-03] MEDS: PANTOPRAZOLE (EC) 40 MG TAB PO SCH (05:12)
[2018-04-03] MEDS: INSULIN ASPART [NOVOLOG] 3 ML PEN SC SCH ×4 (07:55→12:45)
--- NOTE | 2018-04-03 08:01 | CONS ---
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% Ventricular tachycardia Acute kidney injury with history of CKD Hypertension -CHF improved - off bumex -Please refer to cardiology progress note 03/28/2018 discussing LifeVest and patient's refusal -Maintain potassium above 4.0 and magnesium above 2.0 -Continue beta-abraham as heart rate and blood pressure permits Consultation Date/Type/Reason Admit Date/Time Mar 20, 2018 at 19:05 Initial Consult Date Type of Consult Cardiology Date/Time of Note DATE: 04/03/18 TIME: 08:01 24 HR Interval Summary Free Text/Dictation the patient with no change Exam/Review of Systems Vital Signs Vitals Vital Signs Date Temp Pulse Resp B/P (MAP) Pulse Ox O2 O2 Flow FiO2 Time Delivery Rate 04/03/18 98.6 66 22 137/73 96 Room Air 07:17 (94) 04/01/18 2.0 09:00 Intake and Output 04/02/18 04/02/18 04/03/18 1515:00 23:00 07:00 IntakeIntake Total 650 ml 900 ml BalanceBalance 650 ml 900 ml Labs Result Diagram: 04/03/18 0553 04/03/18 0553 Results 24hrs Laboratory Tests Test 04/02/18 08:26 04/02/18 09:58 04/02/18 12:11 04/02/18 17:34 Bedside Glucose 65 L 220 160 152 Test 04/02/18 20:15 04/03/18 05:53 Bedside Glucose 138 White Blood Count 7.8 Red Blood Count 3.66 L Hemoglobin 10.0 L Hematocrit 31.5 L Mean Corpuscular 86.1 Volume Mean Corpuscular 27.3 L Hemoglobin Mean Corpuscular 31.7 L Hemoglobin Concent Red Cell 13.0 Distribution Width Platelet Count 325 Mean Platelet Volume 10.2 Immature 0.400 Granulocytes % Neutrophils % 66.2 Lymphocytes % 13.7 L Monocytes % 12.8 H Eosinophils % 6.1 Basophils % 0.8 Nucleated Red Blood 0.0 Cells % Immature 0.030 Granulocytes # Neutrophils # 5.2 Lymphocytes # 1.1 Monocytes # 1.0 H Eosinophils # 0.5 Basophils # 0.1 Nucleated Red Blood 0.0 Cells # Sodium Level 141 Potassium Level 4.1 Chloride Level 104 Carbon Dioxide Level 29 Anion Gap 8 Blood Urea Nitrogen 78 H Creatinine 2.93 H Est Glomerular Filtrat Rate mL/min Glucose Level 103 Calcium Level 9.0 Magnesium Level 2.2 Total Bilirubin 0.1 L Direct Bilirubin 0.00 Indirect Bilirubin 0.1 Aspartate Amino 20 Transf (AST/SGOT) Alanine 19 Aminotransferase (AL T/SGPT) Alkaline Phosphatase 87 Total Protein 5.6 L Albumin 2.9 L Globulin 2.70 Albumin/Globulin 1.07 Ratio Medications Medications Current Medications Aspirin (Halfprin) 81 mg DAILY PO Last administered on 04/02/18 09:25; Admin Dose 81 MG; Start 03/21/18 at 09:00 Atorvastatin Calcium (Lipitor) 40 mg QHS PO Last administered on 04/02/18 20:17; Admin Dose 40 MG; Start 03/20/18 at 21:00 Clopidogrel Bisulfate (plaVIX) 75 mg DAILY PO Last administered on 04/02/18 09:25; Admin Dose 75 MG; Start 03/21/18 at 09:00 Febuxostat (Uloric) 80 mg DAILY PO Last administered on 04/02/18 09:00; Admin Dose 80 MG; Start 03/21/18 at 09:00 Hydralazine HCl (Apresoline) 50 mg BID PO Last administered on 04/02/18 20:17; Admin Dose 50 MG; Start 03/20/18 at 21:00 Isosorbide Mononitrate (Imdur) 30 mg DAILY PO Last administered on 04/02/18 09:00; Admin Dose 30 MG; Start 03/21/18 at 09:00 Fish Oil (Fish Oil) 2,000 mg BID PO Last administered on 04/02/18 20:16; Admin Dose 2,000 MG; Start 03/20/18 at 21:00 IV Flush (NS 3 ml) 3 ml PER PROTOCOL IV ; Start 03/20/18 at 19:30 Pantoprazole (Protonix Tab) 40 mg DAILY@06 PO Last administered on 04/03/18 05:12; Admin Dose 40 MG; Start 03/21/18 at 06:00 Enoxaparin Sodium (Lovenox) 30 mg DAILY SC Last administered on 04/02/18 10:33; Admin Dose 30 MG; Start 03/21/18 at 09:00 Diagnostic Test (Pha) (Accu-Chek) 1 ea 02 XX Last administered on 03/31/18at 02:00; Admin Dose 1 EA; Start 03/21/18 at 02:00 Insulin Aspart (Novolog Insulin Pen) NOVOLOG *MODERATE* ALGORITHM WITH MEALS BEDTIME SC Last administered on 04/02/18at 18:14; Admin Dose 2 UNIT; Start 03/20/18 at 21:00 Miscellaneous Information 1 ea NOTE XX ; Start 03/20/18 at 20:00 Glucose (Glutose) 15 gm Q15M PRN PO DECREASED GLUCOSE Last administered on 03/27/18at 05:35; Admin Dose 15 GM; Start 03/20/18 at 20:00 Glucose (Glutose) 22.5 gm Q15M PRN PO DECREASED GLUCOSE; Start 03/20/18 at 20:00 Dextrose (D50w Syringe) 25 ml Q15M PRN IV DECREASED GLUCOSE; Start 03/20/18 at 20:00 Dextrose (D50w Syringe) 50 ml Q15M PRN IV DECREASED GLUCOSE; Start 03/20/18 at 20:00 Glucagon (Glucagen) 1 mg Q15M PRN IM DECREASED GLUCOSE; Start 03/20/18 at 20:00 Glucose (Glutose) 15 gm Q15M PRN BUCCAL DECREASED GLUCOSE; Start 03/20/18 at 20:00 Nitroglycerin (Nitroglycerin (Sl Tab) 0.4 Mg) 1 tab PRN PRN SL CHEST PAIN Last administered on 03/21/18at 00:20; Admin Dose 1 TAB; Start 03/21/18 at 00:00 Hydralazine HCl (Apresoline) 10 mg Q6H PRN IV SBP>160 Last administered on 03/22/18at 00:28; Admin Dose 10 MG; Start 03/21/18 at 15:00 Tramadol HCl (Ultram) 50 mg Q6H PRN PO MODERATE PAIN LEVEL 4-6 Last administered on 03/28/18at 06:29; Admin Dose 50 MG; Start 03/22/18 at 09:30 Carvedilol (Coreg) 6.25 mg BID PO Last administered on 04/02/18at 20:17; Admin Dose 6.25 MG; Start 03/22/18 at 21:00 Polyethylene Glycol (Miralax) 17 gm BID PO Last administered on 04/02/18 20:17; Admin Dose 17 GM; Start 03/24/18 at 16:00 Bisacodyl (Dulcolax) 10 mg DAILY PRN PO CONSTIPATION Last administered on 03/26/18 08:04; Admin Dose 10 MG; Start 03/24/18 at 14:30 Bumetanide (Bumex) 1 mg DAILY PO Last administered on 04/02/18 09:25; Admin Dose 1 MG; Start 03/26/18 at 09:00 Insulin Glargine (Lantus) 18 units DAILY@2000 SC Last administered on 04/02/18 20:29; Admin Dose 18 UNITS; Start 03/28/18 at 20:00 Insulin Aspart (Novolog Insulin Pen) 6 unit AC MEALS SC Last administered on 04/02/18 18:13; Admin Dose 6 UNIT; Start 03/28/18 at 17:25 Lactobacillus Acidophilus/ Rhamnosus (Culturelle) 1 cap BID PO Last administered on 04/02/18 20:17; Admin Dose 1 CAP; Start 03/30/18 at 09:00 Nifedipine (Procardia Xl) 60 mg DAILY PO Last administered on 04/02/18 09:26; Admin Dose 60 MG; Start 04/01/18 at 09:00 Trazodone HCl (Desyrel) 50 mg HS PRN PO INSOMNIA Last administered on 04/02/18 22:30; Admin Dose 50 MG; Start 04/02/18 at 22:30 PAIGE BRAND MD Apr 03, 2018 08:01
--- NOTE | 2018-04-03 09:06 | PN ---
DATE: 04/03/2018 SUBJECTIVE: The patient is stable, no events noted. OBJECTIVE: VITAL SIGNS: Blood pressure is 137/73, pulse 66, respiration 22, temperature 98.6. HEENT: Head is normocephalic. NECK: Supple. HEART: Regular rate. LUNGS: Show diminished breath sounds at the base. ABDOMEN: Soft, nontender to palpation without rebound or guarding. EXTREMITIES: Negative for clubbing, cyanosis, no edema. DERMATOLOGIC: No rashes. MUSCULOSKELETAL: No joint effusion. NEUROLOGIC: No change in exam. MEDICATIONS: The patient's medications have been reviewed. LABORATORY DATA: Shows sodium 141, potassium 4.1, BUN 78, creatinine 2.93. White count 7.8, hemoglo bin 10.0, platelet count is 325. ASSESSMENT AND PLAN: 1. Nonoliguric acute kidney injury on top of chronic kidney disease stage IV with previous baseline creatinine 2.5-2.7 mg/dL. Etiology of acute kidney injury is secondary to hemodynamics, possible car diorenal syndrome. Renal function is returning back to baseline. Continue current treatment plans, supportive care, renally dose all meds. 2. Anemia. Monitor hemoglobin and hematocrit levels. 3. Mineral bone disorder, monitor calcium and phosphorus levels. 4. Chronic kidney disease stage IV secondary to hypertension and diabetic nephropathy. The patient is currently in acute kidney injury as stated above. Continue current treatment plan. Continue dise ase factor modification. 5. Acute respiratory failure secondary to congestive heart failure, improved. 6. Acute congestive heart failure. The patient currently compensated. Continue medical management. 7. Arrhythmia. The patient is refusing a LifeVest. Continue to monitor. 8. Diabetes. Continue current insulin regimen. 9. Hypertension. Continue current blood pressure regimen. 10. Coronary artery disease. 11. Dyslipidemia. 12. Tremors. Continue to monitor. Dictated By: CHRISTOPHER ROSADO/NTS Conf#: [id number] DID#: [id number] CC: ANGELIQUE ALVARES MD;*EndCC*
[2018-04-03] MEDS: ASPIRIN (EC) 81 MG TAB PO SCH (09:54)
[2018-04-03] MEDS: BUMETANIDE 1 MG TAB PO SCH (09:54)
[2018-04-03] MEDS: LACTOBACILLUS RHAMNOSUS CAP PO SCH (09:54)
[2018-04-03] MEDS: FISH OIL 1,000 MG CAP PO SCH (09:54)
[2018-04-03] MEDS: NIFEdipine (XL) 60 MG TAB PO SCH (09:55)
[2018-04-03] MEDS: CLOPIDOGREL 75 MG TAB PO SCH (09:55)
[2018-04-03] MEDS: ISOSORBIDE MONONITRATE(SR)30 MG TAB PO SCH (09:55)
[2018-04-03] MEDS: POLYETHYLENE GLYCOL 17 GM PACKET PO SCH (09:55)
[2018-04-03] MEDS: ENOXAPARIN 30 MG/0.3 ML SYG SC SCH (10:19)
[2018-04-03] MEDS: FEBUXOSTAT 40 MG TABLET PO SCH (13:19)
--- NOTE | 2018-04-03 13:22 | PN ---
Date/Time of Note Date/Time of Note Assessment/Plan VTE Prophylaxis Risk score (from Ns)>0 risk: 7 Lines/Catheters Urinary Cath still in place: No Assessment/Plan Hospital Course Result Diagram: 04/03/18 0553 04/03/18 0553 Results 24hrs Exam/Review of Systems Results Results 24hrs Medications Medication DALLIN ADAMS NP Apr 03, 2018 13:22
--- NOTE | 2018-04-03 17:49 | DS ---
Date/Time of Note Date/Time of Note DATE: 04/03/18 TIME: 17:47 Discharge Summary Admission/Discharge Info Admit Date/Time Mar 20, 2018 at 19:05 Discharge Date/Time Discharge Diagnosis 1. S/P acute respiratory failure. Hypoxic. 2. Congestive heart failure exacerbation. Acute on chronic systolic dysfunction. 3. Sustained VT on 03/22/2018. 4. Cardiomyopathy. Ejection fraction of 30%. 5. Hypertensive urgency. 6. Type 2 diabetes mellitus. Hemoglobin A1c 11.6. 7. CAD. Status post coronary artery stenting. 8. Chronic kidney disease. 9. Gout. 10. Dyslipidemia. Patient Condition: Stable Consults 1. Agustin Traylor DO, Cardiology. 2. Marifer Garza MD, Cardiology. 3. Margarito Ruiz DO, Nephrology. Procedures CXR IMPRESSION: 1. Moderate cardiomegaly with the pulmonary vasculature upper normal and the aorta is somewhat tortuous, unchanged. 2. Bibasilar interstitial infiltrates, unchanged which likely represent chronic interstitial scarring. This has progressed from a much earlier study dated 01/26/2014. No effusion or pneumothorax is evident. 3. Mild diffuse degenerative enthesopathy of the thoracic spine, unchanged. Hx of Present Illness This is a 72-year-old male with past medical history of essential hypertension, CAD status post coronary artery stenting, type 2 diabetes mellitus, cardiomyopathy, benign prostatic hypertrophy, and chronic kidney disease who came to the emergency room with chief complaint of sudden onset of dyspnea, productive cough, and elevated blood pressure readings at home. Hospital Course The patient had evidence of acute hypoxic respiratory failure secondary to underlying CHF exacerbation. The patient responded well to diuretic therapy. The patient had evidence of acute on chronic systolic dysfunction. A cardiology consult was obtained. A nephrology consult was also obtained as per the request of cardiology since the patient has underlying chronic kidney disease and the patient had to be diuresed aggressively. The patient had an episode of sustained ventricular tachycardia on 03/22/2018 and converted to sinus rhythm. The patient remained hemodynamically stable during this episode. The patient needs protection via defibrillator versus LifeVest because of the low ejection fraction as well as the episode of sustained VT. Therefore, a LifeVest promotional representative was informed about the need for a LifeVest. Nevertheless, the patient refused to putting a LifeVest because he was unsure about the operation of it. There was an interim plan to discharge this patient on hospice, since the patient did not want a LifeVest. The patient was evaluated by hospice and that the patient did not not qualify for any hospice. Meanwhile social security assessor t alked with the patient's family and finally the patient will go to home with home health to be arranged. The patient has history of cardiomyopathy with ejection fraction of 30%. The patient was maintained on beta-blockers and nitrates. LOLY inhibitor/ARB were avoided because of the patient's renal function. The patient had evidence of hypertensive urgency and the patient was maintained on antihypertensives including PRN antihypertensives for high systolic blood pressure readings. The patient has type 2 diabetes mellitus. The patient's hemoglobin A1c was found to be 11.6. The patient was maintained on sliding scale insulin along with pre- meal insulin and basal insulin. The patient has history of CAD status post coronary artery stenting. The patient was maintained on antiplatelet therapy. As mentioned earlier, the patient was being followed by nephrology because of his underlying chronic kidney disease. The patient has a history of gout. The patient was continued on xanthene oxidase inhibitors (febuxostat). The patient has underlying dyslipidemia, and he was maintained on statins and fish oil. The patient had a prolonged hospital course because of the delay in obtaining a LifeVest because of the patient's refusal of placing a LifeVest on. At this time I would like to thank all the consultants for seeing the patient and providing clinical recommendations. The patient was seen in collaboration with Dr. Russell. Home Meds Active Scripts Thiamine* (Thiamine*) 100 Mg Tablet, 100 MG PO DAILY for 30 Days, #30 TAB Prov:CHUY HORTON MD 04/01/18 Bumetanide* (Bumetanide*) 1 Mg Tablet, 1 MG PO DAILY for 15 Days, #15 TAB Prov:CHUY HORTON MD 04/01/18 Pantoprazole* (Pantoprazole*) 40 Mg Tablet., 40 MG PO DAILY@06 for 10 Days, #20 Prov:CHUY HORTON MD 04/01/18 Polyethylene Glycol* (Miralax*) 17 Gm Powd.pack, 17 GM PO BID for 5 Days otc Prov:CHUY HORTON MD 04/01/18 [NIFEdipine (XL)] 60 MG TABSR No Conflict Check, 60 MG PO DAILY for 10 Days, #10 Prov:CHUY HORTON MD 04/01/18 Carvedilol* (Carvedilol*) 6.25 Mg Tablet, 6.25 MG PO BID for 10 Days, #20 TAB Prov:CHUY HORTON MD 04/01/18 [place]-3/Dha/Epa/Fish Oil (FISH OIL EC 1,000 MG SOFTGEL) 1 Each Capsule., 2000 MG PO BID, #30 CAP Prov:JAD SHIN 03/03/17 Clopidogrel Bisulfate (Clopidogrel) 75 Mg Tablet, 75 MG PO DAILY, #30 TAB Prov:REGJAD GARSIA 03/03/17 Reported Medications Isosorbide Mononitrate* (Isosorbide Mononitrate*) 30 Mg Tab.er.24h, 30 MG PO DAILY, TAB 03/20/18 Clopidogrel Bisulfate (Clopidogrel) 75 Mg Tablet, 75 MG PO DAILY, #30 TAB 03/20/18 Febuxostat* (Uloric*) 80 Mg Tablet, 80 MG PO DAILY, TAB 03/20/18 Hydralazine Hcl* (Hydralazine Hcl*) 50 Mg Tab, 50 MG PO BID, #120 TAB 03/04/18 Aspirin* (Aspirin* EC) 81 Mg Tablet., 81 MG PO DAILY, TAB 03/04/18 Liraglutide (Victoza 3-Donnie) 0.6 Mg/0.1 Ml Pen.injctr, 1.8 MG SQ QAM, SYR 03/04/18 Insulin Glargine,Hum.rec.anlog (Chhaya Boswell) 300 Unit/1 Ml Insuln.pen, 40 UNIT SQ QPM, EA 03/04/18 Atorvastatin* (Atorvastatin*) 40 Mg Tablet, 40 MG PO QHS, #30 TAB 03/04/18 Discontinued Reported Medications Furosemide* (Furosemide*) 40 Mg Tablet, 40 MG PO DAILY, TAB 03/20/18 Omeprazole* (Omeprazole*) 20 Mg Capsule., 20 MG PO DAILY, #30 CAP 02/18/17 Discontinued Scripts Furosemide* (Lasix*) 40 Mg Tablet, 40 MG PO DAILY for 60 Days, #60 TAB 4 Refills Prov:KELY BAUTISTA MD 03/08/18 Follow-up Plan Appt Dr Traylor 1wk. PCP 1wk. Primary Care Provider Not On Staff Doctor Time spent on discharge: > 30 minutes Pending Labs Laboratory Tests Test 04/02/18 20:15 04/03/18 05:53 04/03/18 08:10 04/03/18 12:16 Bedside 138 105 185 Glucose mg/dL (70-220) mg/dL (70-220) mg/dL (70-220) White Blood 7.8 Count 10^3/ul (4.8-1 0.8) Red Blood 3.66 Count 10^6/ul (4.70- 6.10) Hemoglobin 10.0 g/dl (14.0-18. 0) Hematocrit 31.5 % (42.0-52.0) Mean 86.1 Corpuscular fl (82.0-101.0 Volume ) Mean 27.3 Corpuscular pg (29.0-33.0) Hemoglobin Mean 31.7 Corpuscular g/dl (32.0-37. Hemoglobin Conc 0) ent Red Cell 13.0 Distribution % (11.5-14.5) Width Platelet Count 325 10^3/UL (140-4 15) Mean Platelet 10.2 Volume fl (7.4-10.4) Immature 0.400 Granulocytes % % (0.001-0.429 ) Neutrophils % 66.2 % (39.0-77.0) Lymphocytes % 13.7 % (15.0-51.0) Monocytes % 12.8 % (0.0-11.0) Eosinophils % 6.1 % (0.0-7.0) Basophils % 0.8 % (0.0-2.0) Nucleated Red 0.0 Blood Cells % /100WBC (0.0-0 .0) Immature 0.030 Granulocytes # 10^3/ul (0.0-0 .031) Neutrophils # 5.2 10^3/ul (1.6-7 .5) Lymphocytes # 1.1 10^3/ul (0.8-2 .9) Monocytes # 1.0 10^3/ul (0.3-0 .9) Eosinophils # 0.5 10^3/ul (0.0-0 .5) Basophils # 0.1 10^3/ul (0.0-0 .1) Nucleated Red 0.0 Blood Cells # 10^3/ul (0.0-0 .0) Sodium Level 141 mmol/L (135-14 4) Potassium 4.1 Level mmol/L (3.5-5. 1) Chloride Level 104 mmol/L (97-110 ) Carbon Dioxide 29 Level mmol/L (21-31) Anion Gap 8 (5-13) Blood Urea 78 Nitrogen mg/dl (7-20) Creatinine 2.93 mg/dl (0.61-1. 24) Est Glomerular mL/min (>60) Filtrat Rate mL/min Glucose Level 103 mg/dl (70-220) Calcium Level 9.0 mg/dl (8.4-10. 2) Magnesium 2.2 Level mg/dl (1.7-2.5 ) Total 0.1 Bilirubin mg/dl (0.2-1.3 ) Direct 0.00 Bilirubin mg/dl (0.00-0. 20) Indirect 0.1 Bilirubin mg/dl (0-1.1) Aspartate Amino 20 Transf (AST/SGO IU/L (15-46) T) Alanine 19 Aminotransferas IU/L (13-69) e (ALT/SGPT) Alkaline 87 Phosphatase IU/L (42-121) Total Protein 5.6 g/dl (6.1-8.1) Albumin 2.9 g/dl (3.3-4.9) Globulin 2.70 g/dl (1.3-3.2) Albumin/Globuli 1.07 n Ratio DALLIN ADAMS NP Apr 03, 2018 17:49
== END 2018-04-03 18:50 | disposition home health service (06) | DRG 291 ==
LOC: E/R 14:25 → MS3 19:05 → TEL 03-21 23:59
PROVIDERS: ADMIT Internal Medicine; ATTEND Internal Medicine
DX: I13.0 Hypertensive heart and chronic kidney disease with heart failure and stage 1 through stage 4 chronic kidney disease, or unspecified chronic kidney disease (principal); I50.23 Acute on chronic systolic (congestive) heart failure; J96.01 Acute respiratory failure with hypoxia; N18.4 Chronic kidney disease, stage 4 (severe); N17.9 Acute kidney failure, unspecified; I47.2 Ventricular tachycardia; E87.3 Alkalosis; E11.22 Type 2 diabetes mellitus with diabetic chronic kidney disease; I16.0 Hypertensive urgency; I25.10 Atherosclerotic heart disease of native coronary artery without angina pectoris; M10.9 Gout, unspecified; E78.5 Hyperlipidemia, unspecified; N40.0 Benign prostatic hyperplasia without lower urinary tract symptoms; R62.7 Adult failure to thrive; R25.1 Tremor, unspecified; I25.5 Ischemic cardiomyopathy; Z95.5 Presence of coronary angioplasty implant and graft; Z79.4 Long term (current) use of insulin
CPT/HCPCS: 36415; 71045; 80048; 80053; 81001; 81003; 82043; 82550; 82553; 82962; 83036; 83605; 83735; 83880; 84100; 84155; 84300; 84443; 84484; 84560; 85025; 85610; 85730; 93005; 96374; 97116; 97162; 97530; J0360; J1650; J1815; J1940; J3475

== ENCOUNTER 2018-05-06 21:20 | Inpatient (IN) | payer OTHER, MEDICAID ==
[~2018-05-06] VITALS: Ht 170.2 cm; Wt 78.7 kg
[~2018-05-06 21:20] MED LIST changes: +BUME1TAB PO; -CARV3.12 PO; +CARV6.2579 PO; +FEBU80TA PO; -FURO-109 PO; +ISOS30TA67 PO; +NIFEdipine (XL) PO; -OMEP20CA16 PO; +PANT40TA4 PO; +POLY17PO6 PO; +THIA100T10 PO
[2018-05-06 21:27] VITALS: Ht 170.2 cm; Wt 78.7 kg
[2018-05-06] MEDS ORDERED: ALBUTEROL 0.083% (NEB) 2.5 MG/3 ML AMP NEB STA (21:57)
[2018-05-06] MEDS ORDERED: ASPIRIN 325 MG TAB PO STA (21:57)
[2018-05-06] MEDS ORDERED: FUROSEMIDE 40 MG INJ IV STA (21:57)
[2018-05-06] MEDS ORDERED: NITROGLYCERIN 2% 1 GM OINT PKT TD STA (21:57)
--- NOTE | 2018-05-06 21:57 | ERD ---
ER Documentation Chief Complaint Chief Complaint Non radiating 6/10 CP, SOB, bilateral arm numbness X 2 days HPI This is a 72-year-old male who is complaining of 2 days of substernal chest pressure and 3 days of shortness of breath. He says he is gradually getting more short of breath as the past 2 days of gone on and is having a hard time breathing at rest. He was having dyspnea on exertion and orthopnea for a few days. Slight cough but no fever. He is currently wearing a Holter monitor for tachycardia ROS All systems reviewed and are negative except as per history of present illness. Medications Home Meds Active Scripts Thiamine* (Thiamine*) 100 Mg Tablet, 100 MG PO DAILY for 30 Days, #30 TAB Prov:CHUY HORTON MD 04/01/18 Bumetanide* (Bumetanide*) 1 Mg Tablet, 1 MG PO DAILY for 15 Days, #15 TAB Prov:CHUY HORTON MD 04/01/18 Pantoprazole* (Pantoprazole*) 40 Mg Tablet., 40 MG PO DAILY@06 for 10 Days, #20 Prov:CHUY HORTON MD 04/01/18 Polyethylene Glycol* (Miralax*) 17 Gm Powd.pack, 17 GM PO BID for 5 Days otc Prov:CHUY HORTON MD 04/01/18 [NIFEdipine (XL)] 60 MG TABSR No Conflict Check, 60 MG PO DAILY for 10 Days, #10 Prov:CHUY HORTON MD 04/01/18 Carvedilol* (Carvedilol*) 6.25 Mg Tablet, 6.25 MG PO BID for 10 Days, #20 TAB Prov:CHUY HORTON MD 04/01/18 [place]-3/Dha/Epa/Fish Oil (FISH OIL EC 1,000 MG SOFTGEL) 1 Each Capsule., 2000 MG PO BID, #30 CAP Prov:JAD SHIN 03/03/17 Clopidogrel Bisulfate (Clopidogrel) 75 Mg Tablet, 75 MG PO DAILY, #30 TAB Prov:JAD SHIN 03/03/17 Reported Medications Isosorbide Mononitrate* (Isosorbide Mononitrate*) 30 Mg Tab.er.24h, 30 MG PO DAILY, TAB 2/19 Clopidogrel Bisulfate (Clopidogrel) 75 Mg Tablet, 75 MG PO DAILY, #30 TAB 03/20/18 Febuxostat* (Uloric*) 80 Mg Tablet, 80 MG PO DAILY, TAB 03/20/18 Hydralazine Hcl* (Hydralazine Hcl*) 50 Mg Tab, 50 MG PO BID, #120 TAB 03/04/18 Aspirin* (Aspirin* EC) 81 Mg Tablet.dr, 81 MG PO DAILY, TAB 03/04/18 Liraglutide (Victoza 3-Donnie) 0.6 Mg/0.1 Ml Pen.injctr, 1.8 MG SQ QAM, SYR 03/04/18 Insulin Glargine,Hum.rec.anlog (Chhaya Boswell) 300 Unit/1 Ml Insuln.pen, 40 UNIT SQ QPM, EA 03/04/18 Atorvastatin* (Atorvastatin*) 40 Mg Tablet, 40 MG PO QHS, #30 TAB 03/04/18 Allergies Allergies: Coded Allergies: Penicillins (Verified Allergy, Mild, 03/20/18) PMhx/Soc History of Surgery: Yes (PROSTATE) Anesthesia Reaction: No Hx Neurological Disorder: No Hx Respiratory Disorders: Yes (PNA) Hx Cardiac Disorders: Yes (HTN,HYPERCHOLESTEROLEMIA) Hx Psychiatric Problems: No Hx Miscellaneous Medical Probl: Yes (HTN,DM,hyperlipidemia,CAD,CKD,CHF,prostate Ca) Hx Alcohol Use: No Hx Substance Use: No Hx Tobacco Use: No FmHx Family History: No coronary disease Physical Exam Vitals Vital Signs Date Temp Pulse Resp B/P (MAP) Pulse Ox O2 O2 Flow FiO2 Time Delivery Rate 05/06/18 99 2.0 23:30 05/06/18 71 20 99 Nasal 2.0 28 23:30 Cannula 05/06/18 82 25 189/165 100 Nasal 23:00 (173) Cannula 05/06/18 74 27 172/98 2 Nasal 22:30 (122) Cannula 05/06/18 75 25 167/104 2 Nasal 22:21 (125) Cannula 05/06/18 Nasal 2 22:04 Cannula 05/06/18 82 28 176/101 2 Nasal 21:52 (126) Cannula 05/06/18 97.7 78 50 181/93 97 21:27 (122) Physical Exam Const: Well-developed, well-nourished Head: Atraumatic, normocephalic Eyes: Normal Conjunctiva, PERRLA, EOMI, normal sclera, no nystagmus ENT: Normal External Ears, Nose and Mouth, moist mucus membranes. Neck: Full range of motion. No meningismus, no lymphadenopathy. Resp: Decreased breath sounds bilaterally some diffuse basilar rhonchi] Cardio: Regular rate and rhythm, no murmurs, S1 S2 present Abd: Soft, non tender x 4, non distended. Normal bowel sounds, no guarding or rebound, no pulsitile abdominal masses or bruits Skin: No petechiae or rashes, no ecchymosis , no maculopapular rash Back: No midline or flank tenderness Ext: No cyanosis, or edema, FROM x 4, normal inspection, neurova scularly intact x 4 Neur: Awake and alert, STR 5/5 x 4, sensation intact x 4, no focal findings, cerebellum intact Psych: Normal Mood and Affect Result Diagram: 05/06/18221905/06/182219 Results 24 hrs Laboratory Tests Test 05/06/18 22:20 White Blood Count 7.6 10^3/ul Red Blood Count 4.31 10^6/ul Hemoglobin 11.7 g/dl Hematocrit 35.8 % Mean Corpuscular Volume 83.1 fl Mean Corpuscular Hemoglobin 27.1 pg Mean Corpuscular Hemoglobin Concent 32.7 g/dl Red Cell Distribution Width 14.2 % Platelet Count 265 10^3/UL Mean Platelet Volume 9.6 fl Immature Granulocytes % 0.300 % Neutrophils % 69.2 % Lymphocytes % 11.7 % Monocytes % 12.6 % Eosinophils % 5.3 % Basophils % 0.9 % Nucleated Red Blood Cells % 0.0 /100WBC Immature Granulocytes # 0.020 10^3/ul Neutrophils # 5.2 10^3/ul Lymphocytes # 0.9 10^3/ul Monocytes # 1.0 10^3/ul Eosinophils # 0.4 10^3/ul Basophils # 0.1 10^3/ul Nucleated Red Blood Cells # 0.0 10^3/ul Sodium Level 135 mmol/L Potassium Level 4.4 mmol/L Chloride Level 98 mmol/L Carbon Dioxide Level 26 mmol/L Anion Gap 11 Blood Urea Nitrogen 44 mg/dl Creatinine 2.60 mg/dl Est Glomerular Filtrat Rate mL/min mL/min Glucose Level 310 mg/dl Calcium Level 9.3 mg/dl Total Bilirubin 0.5 mg/dl Direct Bilirubin 0.00 mg/dl Indirect Bilirubin 0.5 mg/dl Aspartate Amino Transf (AST/SGOT) 17 IU/L Alanine Aminotransferase (ALT/SGPT) 7 IU/L Alkaline Phosphatase 114 IU/L Troponin I 0.055 ng/ml B-Type Natriuretic Peptide 85329 PG/ML Total Protein 7.0 g/dl Albumin 3.9 g/dl Globulin 3.10 g/dl Albumin/Globulin Ratio 1.25 Current Medications Medications Dose Sig/Monty Start Time Status Last (Trade) Ordered Route PRN Stop Time Admin Dose Reason Admin Aspirin 325 mg ONCE STAT 05/06/18 DC 05/06/18 (Aspirin) PO 21:57 22:50 05/06/18 21:58 1 inch ONCE STAT 05/06/18 DC 05/06/18 Nitroglycerin TD 21:57 22:50 05/06/18 21:58 (Nitroglyceri n 2% Oint) Furosemide 40 mg ONCE STAT 05/06/18 DC 05/06/18 (Lasix) IV 21:57 22:51 05/06/18 21:58 Albuterol 5 mg ONCE STAT 05/06/18 DC 05/06/18 (Proventil NEB 21:57 23:28 0.083% (Neb)) 05/06/18 21:58 Procedures/MDM EKG: Rate/Rhythm: Normal sinus rhythm heart rate 81, left axis deviation, left bundle branch block QRS, ST, QT: NORMAL NV, QRS, QT] Impression: Abnormal EKG MR #: [id number] DOS: 05/06/182156 Ordering MD: DHRUV PORTILLO DO Location: E/R Room/Bed: PROCEDURE: XR Chest. CLINICAL INDICATION: shortness of breath TECHNIQUE: Single portable view of the chest was obtained COMPARISON: CR CHEST 09/07/2016 FINDINGS: There is moderate cardiomegaly. There is moderate pulmonary vascular congestion. There are bilateral perihilar and lower lobe increased interstitial changes. There are small bilateral pleural effusions. There is no pneumothorax. RPTAT: AA IMPRESSION: Moderate cardiomegaly with pulmonary vascular congestion. .Timothy Horner MD, MD Date Time Electronically viewed and signed by .Timothy Horner MD, MD on 05/06/2018 23:10 .S/ CC: DHRUV PORTILLO DO [id number] Patient was given breathing treatment also given Lasix 40 mg IV. Patient has an elevated BNP and has a chest x-ray demonstrating vascular overload. Will admit to the hospital for diuresis for congestive heart failure Departure Diagnosis: Primary Impression: Congestive heart failure Heart failure type: unspecified Heart failure chronicity: unspecified Qualified Codes: I50.9 - Heart failure, unspecified Condition: Stable DHRUV PORTILLO DO May 06, 2018 21:57
[2018-05-07] VITALS (10 sets, daily range): BP systolic 151–179; BP diastolic 78–90; PULSE 18–94; RESP 16–20
--- NOTE | 2018-05-07 00:26 | HP ---
Date/Time of Note Date/Time of Note DATE: 05/07/18 TIME: 00:26 Assessment/Plan VTE Prophylaxis SCD applied (from Nsg): Yes Pharmacological prophylaxis: NA/contraindicated Pharm contraindication: low risk/ambulating Lines/Catheters IV Catheter Type (from Nrsg): Saline Lock Assessment/Plan Hospital Course This is a 72-year-old male being admitted to the telemetry floor for: Chest pain: Rule out ACS versus secondary to CHF exacerbation: We will trend cardiac enzymes x3, first that was negative. Lasix for diuresis. Will consult cardiology . Acute on chronic systolic CHF exacerbation -Patient did receive Lasix in the ER and at the current time he does not have any diffuse wheezing noted, he has some bilateral rales and crackles at the bases. Will continue Lasix and beta-abraham. Consult cardiology. -Cardiology consulted - Coronary artery disease with stent history -Continue aspirin Plavix -Continue home meds as able per cardiology recommendations Chronic kidney disease -Looking on past admissions, it appears patient's creatinine is anywhere between 2.5 and 3.0, currently patient is at 2.6, it appears stable -Consult nephrology Dr. Ruiz Hypertensive urgency -continue home meds as able as well as as needed medications Diabetes mellitus -Lantus with mealtime and insulin sliding scale GERD -Protonix DVT GI prophylaxis: SCDs, Protonix Further treatment strategy will be implemented as per the clinical course Result Diagram: 05/06/18221905/06/18 2220 Results 24hrs Laboratory Tests Test 05/06/18 22:20 White Blood Count 7.6 Red Blood Count 4.31 L Hemoglobin 11.7 L Hematocrit 35.8 L Mean Corpuscular Volume 83.1 Mean Corpuscular Hemoglobin 27.1 L Mean Corpuscular Hemoglobin Concent 32.7 Red Cell Distribution Width 14.2 Platelet Count 265 Mean Platelet Volume 9.6 Immature Granulocytes % 0.300 Neutrophils % 69.2 Lymphocytes % 11.7 L Monocytes % 12.6 H Eosinophils % 5.3 Basophils % 0.9 Nucleated Red Blood Cells % 0.0 Immature Granulocytes # 0.020 Neutrophils # 5.2 Lymphocytes # 0.9 Monocytes # 1.0 H Eosinophils # 0.4 Basophils # 0.1 Nucleated Red Blood Cells # 0.0 Sodium Level 135 Potassium Level 4.4 Chloride Level 98 Carbon Dioxide Level 26 Anion Gap 11 Blood Urea Nitrogen 44 H Creatinine 2.60 H Est Glomerular Filtrat Rate mL/min Glucose Level 310 H Calcium Level 9.3 Total Bilirubin 0.5 Direct Bilirubin 0.00 Indirect Bilirubin 0.5 Aspartate Amino Transf (AST/SGOT) 17 Alanine Aminotransferase (ALT/SGPT) 7 L Alkaline Phosphatase 114 Troponin I 0.055 B-Type Natriuretic Peptide 89264 H Total Protein 7.0 Albumin 3.9 Globulin 3.10 Albumin/Globulin Ratio 1.25 HPI/ROS Admit Date/Time Admit Date/Time Hx of Present Illness CC: cp x 2 days, sob This is a 72-year-old male who is complaining of 2 days of substernal chest pressure and 3 days of shortness of breath. He says he is gradually getting more short of breath as the past 2 days of gone on and is having a hard time breathing at rest. He was having dyspnea on exertion and orthopnea for a few days. Slight cough but no fever. Patient apparently has a Holter monitor on. Allergies: Penicillin medications: See DICK MAYFIELD Const: As per HPI Eyes : No pain discharge or redness or change in visual acuity ENT: No pain, sore throat, congestion, congestion, dysphagia or discharge Respiratory: As per HPI Cardiovascular: As per HPI GI : no change in appetite, abdominal pain, nausea, vomiting, diarrhea, constipation, or change in the color his stool Genitourinary: No dysuria, hematuria, flank pain , discharge or CVA tenderness Musculoskeletal: No joint pain, back pain, neck pain, restricted range of motion in neck or joints Skin: No rash, bruising or hives Neuro: No headache, dizziness, syncope, seizure, focal weakness Endocrine: No polyuria, polydipsia, temperature intolerance Psych: No hallucination, depression, anxiety or suicidal ideation PMH/Family/Social Past Medical History diabetes mellitus, coronary artery disease status post stent, CHF, chronic kidney Medications Current Medications Ondansetron HCl (Zofran Inj) 4 mg ER BRIDGE PRN IV NAUSEA/VOMITING; Start 05/07/18 at 00:30; Stop 05/08/18 at 00:29 Acetaminophen (Tylenol Tab) 650 mg ER BRIDGE PRN PO .MILD PAIN 1-3 OR TEMP; Start 05/07/18 at 00:30; Stop 05/08/18 at 00:29 IV Flush (NS 3 ml) 3 ml PER PROTOCOL IV ; Start 05/07/18 at 00:30 Ondansetron HCl (Zofran Inj) 4 mg Q6H PRN IV NAUSEA/VOMITING; Start 05/07/18 at 00:30 Acetaminophen (Tylenol Tab) 650 mg Q6H PRN PO .PAIN 1-3 OR TEMP; Start 05/07/18 at 00:30 Docusate Sodium (Colace) 100 mg Q12H PRN PO .CONSTIPATION; Start 05/07/18 at 00:30 Bisacodyl (Dulcolax) 5 mg DAILY PRN PO .CONSTIPATION; Start 05/07/18 at 00:30 Enoxaparin Sodium (Lovenox) 30 mg DAILY SC ; Start 05/07/18 at 09:00 Furosemide (Lasix) 40 mg BID DIURETICS IV ; Start 05/07/18 at 06:00 Coded Allergies: Penicillins (Verified Allergy, Mild, 03/20/18) Past Surgical History Past Surgical Hx: noncontributory, angioplasty Family History Significant Family History: no pertinent family hx Social History Alcohol Use: none Smoking Status: Unknown if ever smoked Drug Use: none Exam/Review of Systems Vital Signs Vitals Vital Signs Date Temp Pulse Resp B/P (MAP) Pulse Ox O2 O2 Flow FiO2 Time Delivery Rate 05/07/18 71 17 159/95 96 Room Air 00:05 (116) 05/06/18 2.0 23:30 05/06/18 28 23:30 05/06/18 97.7 21:27 Exam Exam General: Patient is currently sitting upright in bed he does not appear to be in any acute distress HEENT: Atraumatic, normocephalic. The pupils are equal, round and reactive. Extraocular motor are intact Neck: Supple with full range of motion. No rigidity or meningismus Chest: Nontender Lungs: Mild rales at the bases bilaterally, nonlabored breathing Heart: Normal S1-S2, Regular rhythm and rate. Abdomen: Soft , nontender, nondistended , bowel sounds are present. No guarding no rebound tenderness , No masses or organomegaly. No costovertebral temporal angle mass Extremities: Normal to inspection, no edema no cyanosis Neurologic: Normal mental status, speech normal, cranial nerves II through XII are intact, motor and sensory are intact, no focal weakness Additional Comments PROCEDURE: XR Chest. CLINICAL INDICATION: shortness of breath TECHNIQUE: Single portable view of the chest was obtained COMPARISON: CR CHEST 09/07/2016 FINDINGS: There is moderate cardiomegaly. There is moderate pulmonary vascular congestion. There are bilateral perihilar and lower lobe increased interstitial changes. There are small bilateral pleural effusions. There is no pneumothorax. RPTAT: AA IMPRESSION: Moderate cardiomegaly with pulmonary vascular congestion. .Timothy Horner MD, MD Date Time Electronically viewed and signed by .Timothy Horner MD, MD on 05/06/2018 23:10 .S/ CC: DHRUV PORTILLO DO [id number] DAREN HOLLAND May 07, 2018 00:26
[2018-05-07] MEDS ORDERED: BISACODYL (EC) 5 MG TAB PO PRN (00:30)
[2018-05-07] MEDS ORDERED: NACL 0.9% 3 ML SYG IV SCH (00:30)
[2018-05-07] MEDS ORDERED: ONDANSETRON 4 MG INJ IV PRN ×2 (00:30)
[2018-05-07] MEDS ORDERED: DOCUSATE SODIUM 100 MG CAP PO PRN (00:30)
[2018-05-07] MEDS ORDERED: ACETAMINOPHEN 325 MG TAB PO PRN (00:30)
[2018-05-07] MEDS ORDERED: GLUCOSE GEL 15 GRAM TUBE PO PRN ×2 (01:00)
[2018-05-07] MEDS ORDERED: GLUCAGON 1 MG INJ IM PRN (01:00)
[2018-05-07] MEDS ORDERED: DEXTROSE 50% 50 ML SYRINGE IV PRN ×2 (01:00)
[2018-05-07] MEDS ORDERED: GLUCOSE GEL 15 GRAM TUBE BUCCAL PRN (01:00)
[2018-05-07] MEDS: ACCU-CHEK XX SCH (02:12)
[2018-05-07] MEDS ORDERED: hydrALAzine 20 MG INJ IV ONE (03:30)
[2018-05-07] MEDS ORDERED: FUROSEMIDE 40 MG INJ IV SCH (06:00)
[2018-05-07] MEDS ORDERED: INSULIN ASPART [NOVOLOG] 3 ML PEN SC SCH (08:00)
[2018-05-07] MEDS ORDERED: NON-FORMULARY/PATIENT OWN MED (Liraglutide (Victoza 3-Pak) 1.8 MG) SQ SCH (09:00)
[2018-05-07] MEDS: ENOXAPARIN 30 MG/0.3 ML SYG SC SCH (09:44)
[2018-05-07] MEDS: INSULIN ASPART [NOVOLOG] 3 ML PEN SC SCH ×4 (10:30→21:05)
[2018-05-07] MEDS: [UNRECOGNIZED DRUG - OTHER] XX SCH ×2 (11:00→19:00)
--- NOTE | 2018-05-07 11:54 | PN ---
Date/Time of Note Date/Time of Note DATE: 05/07/18 TIME: 11:50 Assessment/Plan VTE Prophylaxis SCD applied (from Nsg): Yes Pharmacological prophylaxis: LMWH (Renal dose) Lines/Catheters IV Catheter Type (from Nrsg): Saline Lock Urinary Cath still in place: No Assessment/Plan Hospital Course SUBJECTIVE: Denies any dyspnea. Complains of minimal chest pain. OBJECTIVE: Physical Exam General: Obese 72 year-old male lying in bed in mild respiratory distress. HEENT: Normocephalic, atraumatic. Eyes: Anicteric sclerae, conjunctivae clear. ENT: Nasal septum midline, oral mucosa moist. Neck supple. JVD noticed. Respiratory: Bilaterally diminished breath sounds. Bilateral rales at the ba ses. Cardiovascular: S1, S2 heard. Regular rate and rhythm. Abdomen: Soft, nontender, and nondistended. Bowel sounds positive in all 4 quadrants. Genitourinary: Deferred. Extremities: No cyanosis, no clubbing. Trace B/L pedal edema. Peripheral pulses palpable. Neurologic: Cranial nerves II through XII grossly intact. The patient is awake, alert, and oriented. Skin: Normal skin turgor. No skin rashes Labs & Vitals per chart ASSESSMENT & PLAN This is a 72-year-old male with past medical history of essential hypertension, CAD status post coronary artery stenting, type 2 diabetes mellitus, cardiomyopathy (fitted with LifeVest on 04/03/2018), sustained VT (on 03/22/2018), benign prostatic hypertrophy, gout, and chronic kidney disease who came to the emergency room with chief complaint of chest pain and dyspnea. 1. Chest pain. -Troponins negative so far. -Pending cardiology consult. -Continue aspirin and Plavix. 2. Congestive heart failure exacerbation. -Acute on chronic systolic dysfunction. -Continue diuresis. 3. Sustained VT on 03/22/2018. -Status post LifeVest placement in March 2018. -Currently has no LifeVest in place. 4. Cardiomyopathy. -Ejection fraction of 30%. -Continue beta-blockers and nitrates. 5. Hypertensive urgency. -The patient will be continued on his antihypertensives. 6. Type 2 diabetes mellitus. -The patient will be continued on sliding scale insulin along with pre-meal insulin and basal insulin. -Latest hemoglobin A1c 11.6. 7. CAD. Status post coronary artery stenting. -The patient will be continued on antiplatelet therapy. 8. Chronic kidney disease. -Nephrotoxic drugs will be used with caution. -The patient's BUN and creatinine will be monitored closely. -Nephrology follow up. 9. Gout. -The patient will be continued on xanthine oxidase inhibitors (Febuxostat). 10. Dyslipidemia. -Continue statins and fish oil. 11. Fluids, electrolytes, and nutrition. -Carbohydrate controlled diet. 12. DVT prophylaxis. -Subcutaneous Lovenox (renal dose). 13. Plan. -Continue diuresis while carefully monitoring renal function. -Await cardiology and nephrology evaluation. The patient was seen in collaboration with Dr. Russell. Result Diagram: 05/07/18 1027 05/07/18 1027 Results 24hrs Laboratory Tests Test 05/06/18 22:20 05/07/18 02:12 05/07/18 05:05 05/07/18 08:15 White Blood Count 7.6 Red Blood Count 4.31 L Hemoglobin 11.7 L Hematocrit 35.8 L Mean Corpuscular 83.1 Volume Mean Corpuscular 27.1 L Hemoglobin Mean Corpuscular 32.7 Hemoglobin Concent Red Cell 14.2 Distribution Width Platelet Count 265 Mean Platelet Volume 9.6 Immature 0.300 Granulocytes % Neutrophils % 69.2 Lymphocytes % 11.7 L Monocytes % 12.6 H Eosinophils % 5.3 Basophils % 0.9 Nucleated Red Blood 0.0 Cells % Immature 0.020 Granulocytes # Neutrophils # 5.2 Lymphocytes # 0.9 Monocytes # 1.0 H Eosinophils # 0.4 Basophils # 0.1 Nucleated Red Blood 0.0 Cells # Sodium Level 135 Potassium Level 4.4 Chloride Level 98 Carbon Dioxide Level 26 Anion Gap 11 Blood Urea Nitrogen 44 H Creatinine 2.60 H Est Glomerular Filtrat Rate mL/min Glucose Level 310 H Calcium Level 9.3 Total Bilirubin 0.5 Direct Bilirubin 0.00 Indirect Bilirubin 0.5 Aspartate Amino 17 Transf (AST/SGOT) Alanine 7 L Aminotransferase (AL T/SGPT) Alkaline Phosphatase 114 Troponin I 0.055 0.083 B-Type Natriuretic 98745 H Peptide Total Protein 7.0 Albumin 3.9 Globulin 3.10 Albumin/Globulin 1.25 Ratio Bedside Glucose 201 186 Creatine Kinase 41 Creatine Kinase 2.3 Index Creatinine Kinase MB 0.93 (Mass) Test 05/07/18 10:27 White Blood Count 10.1 # Red Blood Count 4.15 L Hemoglobin 11.4 L Hematocrit 34.3 L Mean Corpuscular 82.7 Volume Mean Corpuscular 27.5 L Hemoglobin Mean Corpuscular 33.2 Hemoglobin Concent Red Cell 14.4 Distribution Width Platelet Count 252 Mean Platelet Volume 10.2 Immature 0.400 Granulocytes % Neutrophils % 78.8 H Lymphocytes % 6.1 L Monocytes % 10.3 Eosinophils % 3.5 Basophils % 0.9 Nucleated Red Blood 0.0 Cells % Immature 0.040 H Granulocytes # Neutrophils # 8.0 H Lymphocytes # 0.6 L Monocytes # 1.0 H Eosinophils # 0.4 Basophils # 0.1 Nucleated Red Blood 0.0 Cells # Sodium Level 137 Potassium Level 4.3 Chloride Level 99 Carbon Dioxide Level 27 Anion Gap 11 Blood Urea Nitrogen 44 H Creatinine 2.50 H Est Glomerular Filtrat Rate mL/min Glucose Level 309 H Calcium Level 9.2 Total Bilirubin 0.5 Direct Bilirubin 0.00 Indirect Bilirubin 0.5 Aspartate Amino 14 L Transf (AST/SGOT) Alanine 17 Aminotransferase (AL T/SGPT) Alkaline Phosphatase 94 Creatine Kinase 44 Creatine Kinase 1.9 Index Creatinine Kinase MB 0.82 (Mass) Troponin I 0.062 Total Protein 5.9 #L Albumin 3.5 Globulin 2.40 Albumin/Globulin 1.45 Ratio Exam/Review of Systems Exam Vitals Vital Signs Date Temp Pulse Resp B/P (MAP) Pulse Ox O2 O2 Flow FiO2 Time Delivery Rate 05/07/18 71 11:32 05/07/18 98.6 20 151/78 98 07:59 (102) 05/07/18 Nasal 2.0 04:13 Cannula 05/06/18 28 23:30 Intake and Output 05/06/18 05/06/18 05/07/18 1515:00 23:00 07:00 IntakeIntake Total 200 ml OutputOutput Total 1000 ml BalanceBalance -800 ml Results Results 24hrs Laboratory Tests Test 05/06/18 22:20 05/07/18 02:12 05/07/18 05:05 05/07/18 08:15 White Blood Count 7.6 Red Blood Count 4.31 L Hemoglobin 11.7 L Hematocrit 35.8 L Mean Corpuscular 83.1 Volume Mean Corpuscular 27.1 L Hemoglobin Mean Corpuscular 32.7 Hemoglobin Concent Red Cell 14.2 Distribution Width Platelet Count 265 Mean Platelet Volume 9.6 Immature 0.300 Granulocytes % Neutrophils % 69.2 Lymphocytes % 11.7 L Monocytes % 12.6 H Eosinophils % 5.3 Basophils % 0.9 Nucleated Red Blood 0.0 Cells % Immature 0.020 Granulocytes # Neutrophils # 5.2 Lymphocytes # 0.9 Monocytes # 1.0 H Eosinophils # 0.4 Basophils # 0.1 Nucleated Red Blood 0.0 Cells # Sodium Level 135 Potassium Level 4.4 Chloride Level 98 Carbon Dioxide Level 26 Anion Gap 11 Blood Urea Nitrogen 44 H Creatinine 2.60 H Est Glomerular Filtrat Rate mL/min Glucose Level 310 H Calcium Level 9.3 Total Bilirubin 0.5 Direct Bilirubin 0.00 Indirect Bilirubin 0.5 Aspartate Amino 17 Transf (AST/SGOT) Alanine 7 L Aminotransferase (AL T/SGPT) Alkaline Phosphatase 114 Troponin I 0.055 0.083 B-Type Natriuretic 16836 H Peptide Total Protein 7.0 Albumin 3.9 Globulin 3.10 Albumin/Globulin 1.25 Ratio Bedside Glucose 201 186 Creatine Kinase 41 Creatine Kinase 2.3 Index Creatinine Kinase MB 0.93 (Mass) Test 05/07/18 10:27 White Blood Count 10.1 # Red Blood Count 4.15 L Hemoglobin 11.4 L Hematocrit 34.3 L Mean Corpuscular 82.7 Volume Mean Corpuscular 27.5 L Hemoglobin Mean Corpuscular 33.2 Hemoglobin Concent Red Cell 14.4 Distribution Width Platelet Count 252 Mean Platelet Volume 10.2 Immature 0.400 Granulocytes % Neutrophils % 78.8 H Lymphocytes % 6.1 L Monocytes % 10.3 Eosinophils % 3.5 Basophils % 0.9 Nucleated Red Blood 0.0 Cells % Immature 0.040 H Granulocytes # Neutrophils # 8.0 H Lymphocytes # 0.6 L Monocytes # 1.0 H Eosinophils # 0.4 Basophils # 0.1 Nucleated Red Blood 0.0 Cells # Sodium Level 137 Potassium Level 4.3 Chloride Level 99 Carbon Dioxide Level 27 Anion Gap 11 Blood Urea Nitrogen 44 H Creatinine 2.50 H Est Glomerular Filtrat Rate mL/min Glucose Level 309 H Calcium Level 9.2 Total Bilirubin 0.5 Direct Bilirubin 0.00 Indirect Bilirubin 0.5 Aspartate Amino 14 L Transf (AST/SGOT) Alanine 17 Aminotransferase (AL T/SGPT) Alkaline Phosphatase 94 Creatine Kinase 44 Creatine Kinase 1.9 Index Creatinine Kinase MB 0.82 (Mass) Troponin I 0.062 Total Protein 5.9 #L Albumin 3.5 Globulin 2.40 Albumin/Globulin 1.45 Ratio Medications Medication Current Medications Ondansetron HCl (Zofran Inj) 4 mg ER BRIDGE PRN IV NAUSEA/VOMITING; Start 05/07/18 at 00:30; Stop 05/08/18 at 00:29 Acetaminophen (Tylenol Tab) 650 mg ER BRIDGE PRN PO .MILD PAIN 1-3 OR TEMP; Start 05/07/18 at 00:30; Stop 05/08/18 at 00:29 IV Flush (NS 3 ml) 3 ml PER PROTOCOL IV ; Start 05/07/18 at 00:30 Ondansetron HCl (Zofran Inj) 4 mg Q6H PRN IV NAUSEA/VOMITING; Start 05/07/18 at 00:30 Acetaminophen (Tylenol Tab) 650 mg Q6H PRN PO .PAIN 1-3 OR TEMP; Start 05/07/18 at 00:30 Docusate Sodium (Colace) 100 mg Q12H PRN PO .CONSTIPATION; Start 05/07/18 at 00:30 Bisacodyl (Dulcolax) 5 mg DAILY PRN PO .CONSTIPATION; Start 05/07/18 at 00:30 Enoxaparin Sodium (Lovenox) 30 mg DAILY SC Last administered on 05/07/18at 09:44; Admin Dose 30 MG; Start 05/07/18 at 09:00 Insulin Glargine (Lantus) 40 units QPM SC ; Start 05/07/18 at 21:00 Miscellaneous Information 1.8 mg QAM SQ ; Start 05/07/18 at 09:00; Status UNV Diagnostic Test (Pha) (Accu-Chek) 1 ea 02 XX Last administered on 05/07/18at 02:12; Admin Dose 1 EA; Start 05/07/18 at 02:00 Insulin Aspart (Novolog Insulin Pen) NOVOLOG *MILD* ALGORITHM WITH MEALS BEDTIME SC Last administered on 05/07/18at 10:30; Admin Dose 2 UNIT; Start 05/07/18 at 08:00 Miscellaneous Information 1 ea NOTE XX ; Start 05/07/18 at 01:00 Glucose (Glutose) 15 gm Q15M PRN PO DECREASED GLUCOSE; Start 05/07/18 at 01:00 Glucose (Glutose) 22.5 gm Q15M PRN PO DECREASED GLUCOSE; Start 05/07/18 at 01:00 Dextrose (D50w Syringe) 25 ml Q15M PRN IV DECREASED GLUCOSE; Start 05/07/18 at 01:00 Dextrose (D50w Syringe) 50 ml Q15M PRN IV DECREASED GLUCOSE; Start 05/07/18 at 01:00 Glucagon (Glucagen) 1 mg Q15M PRN IM DECREASED GLUCOSE; Start 05/07/18 at 01:00 Glucose (Glutose) 15 gm Q15M PRN BUCCAL DECREASED GLUCOSE; Start 05/07/18 at 01:00 Miscellaneous Information Patients own medicat... BID@, XX ; Start 05/07/18 at 10:00 Aspirin (Halfprin) 81 mg DAILY PO ; Start 05/08/18 at 09:00 Atorvastatin Calcium (Lipitor) 40 mg QHS PO ; Start 05/07/18 at 21:00 Carvedilol (Coreg) 6.25 mg BID PO ; Start 05/07/18 at 21:00 Clopidogrel Bisulfate (plaVIX) 75 mg DAILY PO ; Start 05/08/18 at 09:00 Hydralazine HCl (Apresoline) 50 mg BID PO ; Start 05/07/18 at 21:00 Isosorbide Mononitrate (Imdur) 30 mg DAILY PO ; Start 05/08/18 at 09:00 Pantoprazole (Protonix Tab) 40 mg DAILY@06 PO ; Start 05/08/18 at 06:00 Fish Oil (Fish Oil) 2,000 mg BID PO ; Start 05/07/18 at 11:00 Nifedipine (Procardia Xl) 60 mg DAILY PO ; Start 05/08/18 at 09:00 Furosemide (Lasix) 40 mg DAILY IV ; Start 05/08/18 at 09:00 Miscellaneous Information (*Order Clarification Bulletin) VICTOZA IS NON FORMULARY--PLEASE CONSIDER... Q8H XX ; Start 05/07/18 at 11:00 DALLIN ADAMS NP May 07, 2018 11:54
[2018-05-07] MEDS: FISH OIL 1,000 MG CAP PO SCH ×2 (12:20→20:58)
--- NOTE | 2018-05-07 14:11 | CONS ---
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 Serial cardiac enzymes are negative. ECG baseline left bundle -Patient currently on Lasix 40 mg IV daily, does have baseline renal dy sfunction, would give extra dose of Lasix this afternoon. Renal follow-up -Continue beta-abraham, not on LOLY inhibitor secondary to abnormal renal function -Patient was fitted for LifeVest on last admission but he then refused prior to discharge. Consultation Date/Type/Reason Admit Date/Time Type of Consult Cardiology Reason for Consultation Shortness of breath Date/Time of Note DATE: 05/07/18 TIME: 14:05 Hx of Present Illness This is a 72-year-old male past medical history of congestive heart failure, hypertension, renal dysfunction who presents with worsening shortness of breath over 3-4 days. Symptoms are worse with exertion and lying down. Symptoms are better with sitting up. He denies any current chest pain but did have some when he was admitted. Shortness of breath has improved. Denies any dizziness or lightheadedness. Does complain of fatigue. He tells me he is compliant with his medications. 12 point review of systems was performed with all pertinent positives and negatives mentioned above and all else is negative Past Medical History Medical History: congestive heart failure, coronary artery disease, hyperten juan Home Meds Active Scripts Thiamine* (Thiamine*) 100 Mg Tablet, 100 MG PO DAILY for 30 Days, #30 TAB Prov:CHUY HORTON MD 04/01/18 Bumetanide* (Bumetanide*) 1 Mg Tablet, 1 MG PO DAILY for 15 Days, #15 TAB Prov:CHUY HORTON MD 04/01/18 Pantoprazole* (Pantoprazole*) 40 Mg Tablet., 40 MG PO DAILY@06 for 10 Days, #20 Prov:CHUY HORTON MD 04/01/18 Polyethylene Glycol* (Miralax*) 17 Gm Powd.pack, 17 GM PO BID for 5 Days otc Prov:CHUY HORTON MD 04/01/18 [NIFEdipine (XL)] 60 MG TABSR No Conflict Check, 60 MG PO DAILY for 10 Days, #10 Prov:CHUY HORTON MD 04/01/18 Carvedilol* (Carvedilol*) 6.25 Mg Tablet, 6.25 MG PO BID for 10 Days, #20 TAB Prov:CHUY HORTON MD 04/01/18 Lawrence-3/Dha/Epa/Fish Oil (FISH OIL EC 1,000 MG SOFTGEL) 1 Each Capsule.dr, 2000 MG PO BID, #30 CAP Prov:JAD SHIN 03/03/17 Clopidogrel Bisulfate (Clopidogrel) 75 Mg Tablet, 75 MG PO DAILY, #30 TAB Prov:JAD SHIN 03/03/17 Reported Medications Isosorbide Mononitrate* (Isosorbide Mononitrate*) 30 Mg Tab.er.24h, 30 MG PO DAILY, TAB 03/20/18 Clopidogrel Bisulfate (Clopidogrel) 75 Mg Tablet, 75 MG PO DAILY, #30 TAB 03/20/18 Febuxostat* (Uloric*) 80 Mg Tablet, 80 MG PO DAILY, TAB 03/20/18 Hydralazine Hcl* (Hydralazine Hcl*) 50 Mg Tab, 50 MG PO BID, #120 TAB 03/04/18 Aspirin* (Aspirin* EC) 81 Mg Tablet.dr, 81 MG PO DAILY, TAB 03/04/18 Liraglutide (Victoza 3-Donnie) 0.6 Mg/0.1 Ml Pen.injctr, 1.8 MG SQ QAM, SYR 03/04/18 Insulin Glargine,Hum.rec.anlog (Chhaya Boswell) 300 Unit/1 Ml Insuln.pen, 40 UNIT SQ QPM, EA 03/04/18 Atorvastatin* (Atorvastatin*) 40 Mg Tablet, 40 MG PO QHS, #30 TAB 03/04/18 Medications Current Medications Ondansetron HCl (Zofran Inj) 4 mg ER BRIDGE PRN IV NAUSEA/VOMITING; Start 05/07/18 at 00:30; Stop 05/08/18 at 00:29 Acetaminophen (Tylenol Tab) 650 mg ER BRIDGE PRN PO .MILD PAIN 1-3 OR TEMP; Start 05/07/18 at 00:30; Stop 05/08/18 at 00:29 IV Flush (NS 3 ml) 3 ml PER PROTOCOL IV ; Start 05/07/18 at 00:30 Ondansetron HCl (Zofran Inj) 4 mg Q6H PRN IV NAUSEA/VOMITING; Start 05/07/18 at 00:30 Acetaminophen (Tylenol Tab) 650 mg Q6H PRN PO .PAIN 1-3 OR TEMP; Start 05/07/18 at 00:30 Docusate Sodium (Colace) 100 mg Q12H PRN PO .CONSTIPATION; Start 05/07/18 at 00:30 Bisacodyl (Dulcolax) 5 mg DAILY PRN PO .CONSTIPATION; Start 05/07/18 at 00:30 Enoxaparin Sodium (Lovenox) 30 mg DAILY SC Last administered on 05/07/18at 09:44; Admin Dose 30 MG; Start 05/07/18 at 09:00 Insulin Glargine (Lantus) 40 units QPM SC ; Start 05/07/18 at 21:00 Miscellaneous Information 1.8 mg QAM SQ ; Start 05/07/18 at 09:00; Status UNV Diagnostic Test (Pha) (Accu-Chek) 1 ea 02 XX Last administered on 05/07/18at 02:12; Admin Dose 1 EA; Start 05/07/18 at 02:00 Insulin Aspart (Novolog Insulin Pen) NOVOLOG *MILD* ALGORITHM WITH MEALS BEDTIME SC Last administered on 05/07/18at 12:17; Admin Dose 3 UNIT; Start 05/07/18 at 08:00 Miscellaneous Information 1 ea NOTE XX ; Start 05/07/18 at 01:00 Glucose (Glutose) 15 gm Q15M PRN PO DECREASED GLUCOSE; Start 05/07/18 at 01:00 Glucose (Glutose) 22.5 gm Q15M PRN PO DECREASED GLUCOSE; Start 05/07/18 at 01:00 Dextrose (D50w Syringe) 25 ml Q15M PRN IV DECREASED GLUCOSE; Start 05/07/18 at 01:00 Dextrose (D50w Syringe) 50 ml Q15M PRN IV DECREASED GLUCOSE; Start 05/07/18 at 01:00 Glucagon (Glucagen) 1 mg Q15M PRN IM DECREASED GLUCOSE; Start 05/07/18 at 01:00 Glucose (Glutose) 15 gm Q15M PRN BUCCAL DECREASED GLUCOSE; Start 05/07/18 at 01:00 Miscellaneous Information Patients own medicat... BID@10,16 XX ; Start 05/07/18 at 10:00 Aspirin (Halfprin) 81 mg DAILY PO ; Start 05/08/18 at 09:00 Atorvastatin Calcium (Lipitor) 40 mg QHS PO ; Start 05/07/18 at 21:00 Carvedilol (Coreg) 6.25 mg BID PO ; Start 05/07/18 at 21:00 Clopidogrel Bisulfate (plaVIX) 75 mg DAILY PO ; Start 05/08/18 at 09:00 Hydralazine HCl (Apresoline) 50 mg BID PO ; Start 05/07/18 at 21:00 Isosorbide Mononitrate (Imdur) 30 mg DAILY PO ; Start 05/08/18 at 09:00 Pantoprazole (Protonix Tab) 40 mg DAILY@06 PO ; Start 05/08/18 at 06:00 Fish Oil (Fish Oil) 2,000 mg BID PO Last administered on 05/07/18at 12:20; Admin Dose 2,000 MG; Start 05/07/18 at 11:00 Nifedipine (Procardia Xl) 60 mg DAILY PO ; Start 05/08/18 at 09:00 Furosemide (Lasix) 40 mg DAILY IV ; Start 05/08/18 at 09:00 Miscellaneous Information (*Order Clarification Bulletin) VICTOZA IS NON FORMULARY--PLEASE CONSIDER... Q8H XX ; Start 05/07/18 at 11:00 Febuxostat (Uloric) 80 mg DAILY PO ; Start 05/08/18 at 09:00 Allergies: Coded Allergies: Penicillins (Verified Allergy, Mild, 03/20/18) Past Surgical History Past Surgical Hx: noncontributory, angioplasty Social History Alcohol Use: none Smoking Status: Unknown if ever smoked Drug Use: none Exam/Review of Systems Vital Signs Vitals Vital Signs Date Temp Pulse Resp B/P (MAP) Pulse Ox O2 O2 Flow FiO2 Time Delivery Rate 05/07/18 98.4 94 20 177/86 98 12:03 (116) 05/07/18 Nasal 2.0 04:13 Cannula 05/06/18 28 23:30 Intake and Output 05/06/18 05/06/18 05/07/18 1515:00 23:00 07:00 IntakeIntake Total 200 ml OutputOutput Total 1000 ml BalanceBalance -800 ml Exam Constitutional: alert, oriented (No apparent distress) Head: normocephalic Respiratory: other (Coarse breath sounds bilaterally, mild scattered crackles, no wheezing) Cardiovascular: regular rate and rhythm (S1-S2 heard) Gastrointestinal: soft, non-tender, bowel sounds Extremities: edema Labs Result Diagram: 05/07/18 1027 05/07/18 1027 Results 24hrs Laboratory Tests Test 05/06/18 22:20 05/07/18 02:12 05/07/18 05:05 05/07/18 08:15 White Blood Count 7.6 Red Blood Count 4.31 L Hemoglobin 11.7 L Hematocrit 35.8 L Mean Corpuscular 83.1 Volume Mean Corpuscular 27.1 L Hemoglobin Mean Corpuscular 32.7 Hemoglobin Concent Red Cell 14.2 Distribution Width Platelet Count 265 Mean Platelet Volume 9.6 Immature 0.300 Granulocytes % Neutrophils % 69.2 Lymphocytes % 11.7 L Monocytes % 12.6 H Eosinophils % 5.3 Basophils % 0.9 Nucleated Red Blood 0.0 Cells % Immature 0.020 Granulocytes # Neutrophils # 5.2 Lymphocytes # 0.9 Monocytes # 1.0 H Eosinophils # 0.4 Basophils # 0.1 Nucleated Red Blood 0.0 Cells # Sodium Level 135 Potassium Level 4.4 Chloride Level 98 Carbon Dioxide Level 26 Anion Gap 11 Blood Urea Nitrogen 44 H Creatinine 2.60 H Est Glomerular Filtrat Rate mL/min Glucose Level 310 H Calcium Level 9.3 Total Bilirubin 0.5 Direct Bilirubin 0.00 Indirect Bilirubin 0.5 Aspartate Amino 17 Transf (AST/SGOT) Alanine 7 L Aminotransferase (AL T/SGPT) Alkaline Phosphatase 114 Troponin I 0.055 0.083 B-Type Natriuretic 83639 H Peptide Total Protein 7.0 Albumin 3.9 Globulin 3.10 Albumin/Globulin 1.25 Ratio Bedside Glucose 201 186 Creatine Kinase 41 Creatine Kinase 2.3 Index Creatinine Kinase MB 0.93 (Mass) Test 05/07/18 10:27 05/07/18 11:49 White Blood Count 10.1 # Red Blood Count 4.15 L Hemoglobin 11.4 L Hematocrit 34.3 L Mean Corpuscular 82.7 Volume Mean Corpuscular 27.5 L Hemoglobin Mean Corpuscular 33.2 Hemoglobin Concent Red Cell 14.4 Distribution Width Platelet Count 252 Mean Platelet Volume 10.2 Immature 0.400 Granulocytes % Neutrophils % 78.8 H Lymphocytes % 6.1 L Monocytes % 10.3 Eosinophils % 3.5 Basophils % 0.9 Nucleated Red Blood 0.0 Cells % Immature 0.040 H Granulocytes # Neutrophils # 8.0 H Lymphocytes # 0.6 L Monocytes # 1.0 H Eosinophils # 0.4 Basophils # 0.1 Nucleated Red Blood 0.0 Cells # Sodium Level 137 Potassium Level 4.3 Chloride Level 99 Carbon Dioxide Level 27 Anion Gap 11 Blood Urea Nitrogen 44 H Creatinine 2.50 H Est Glomerular Filtrat Rate mL/min Glucose Level 309 H Calcium Level 9.2 Total Bilirubin 0.5 Direct Bilirubin 0.00 Indirect Bilirubin 0.5 Aspartate Amino 14 L Transf (AST/SGOT) Alanine 17 Aminotransferase (AL T/SGPT) Alkaline Phosphatase 94 Creatine Kinase 44 Creatine Kinase 1.9 Index Creatinine Kinase MB 0.82 (Mass) Troponin I 0.062 Total Protein 5.9 #L Albumin 3.5 Globulin 2.40 Albumin/Globulin 1.45 Ratio Bedside Glucose 250 H Imaging Imaging ECG with sinus rhythm at 81 bpm, QRS 158 ms, left bundle branch block, nonspecific ST abnormalities Medications Medications Current Medications Ondansetron HCl (Zofran Inj) 4 mg ER BRIDGE PRN IV NAUSEA/VOMITING; Start 05/07/18 at 00:30; Stop 05/08/18 at 00:29 Acetaminophen (Tylenol Tab) 650 mg ER BRIDGE PRN PO .MILD PAIN 1-3 OR TEMP; Start 05/07/18 at 00:30; Stop 05/08/18 at 00:29 IV Flush (NS 3 ml) 3 ml PER PROTOCOL IV ; Start 05/07/18 at 00:30 Ondansetron HCl (Zofran Inj) 4 mg Q6H PRN IV NAUSEA/VOMITING; Start 05/07/18 at 00:30 Acetaminophen (Tylenol Tab) 650 mg Q6H PRN PO .PAIN 1-3 OR TEMP; Start 05/07/18 at 00:30 Docusate Sodium (Colace) 100 mg Q12H PRN PO .CONSTIPATION; Start 05/07/18 at 00:30 Bisacodyl (Dulcolax) 5 mg DAILY PRN PO .CONSTIPATION; Start 05/07/18 at 00:30 Enoxaparin Sodium (Lovenox) 30 mg DAILY SC Last administered on 05/07/18at 09:44; Admin Dose 30 MG; Start 05/07/18 at 09:00 Insulin Glargine (Lantus) 40 units QPM SC ; Start 05/07/18 at 21:00 Miscellaneous Information 1.8 mg QAM SQ ; Start 05/07/18 at 09:00; Status UNV Diagnostic Test (Pha) (Accu-Chek) 1 ea 02 XX Last administered on 05/07/18at 02:12; Admin Dose 1 EA; Start 05/07/18 at 02:00 Insulin Aspart (Novolog Insulin Pen) NOVOLOG *MILD* ALGORITHM WITH MEALS BEDTIME SC Last administered on 05/07/18at 12:17; Admin Dose 3 UNIT; Start 05/07/18 at 08:00 Miscellaneous Information 1 ea NOTE XX ; Start 05/07/18 at 01:00 Glucose (Glutose) 15 gm Q15M PRN PO DECREASED GLUCOSE; Start 05/07/18 at 01:00 Glucose (Glutose) 22.5 gm Q15M PRN PO DECREASED GLUCOSE; Start 05/07/18 at 01:00 Dextrose (D50w Syringe) 25 ml Q15M PRN IV DECREASED GLUCOSE; Start 05/07/18 at 01:00 Dextrose (D50w Syringe) 50 ml Q15M PRN IV DECREASED GLUCOSE; Start 05/07/18 at 01:00 Glucagon (Glucagen) 1 mg Q15M PRN IM DECREASED GLUCOSE; Start 05/07/18 at 01:00 Glucose (Glutose) 15 gm Q15M PRN BUCCAL DECREASED GLUCOSE; Start 05/07/18 at 01:00 Miscellaneous Information Patients own medicat... BID@,16 XX ; Start 05/07/18 at 10:00 Aspirin (Halfprin) 81 mg DAILY PO ; Start 05/08/18 at 09:00 Atorvastatin Calcium (Lipitor) 40 mg QHS PO ; Start 05/07/18 at 21:00 Carvedilol (Coreg) 6.25 mg BID PO ; Start 05/07/18 at 21:00 Clopidogrel Bisulfate (plaVIX) 75 mg DAILY PO ; Start 05/08/18 at 09:00 Hydralazine HCl (Apresoline) 50 mg BID PO ; Start 05/07/18 at 21:00 Isosorbide Mononitrate (Imdur) 30 mg DAILY PO ; Start 05/08/18 at 09:00 Pantoprazole (Protonix Tab) 40 mg DAILY@06 PO ; Start 05/08/18 at 06:00 Fish Oil (Fish Oil) 2,000 mg BID PO Last administered on 05/07/18at 12:20; Admin Dose 2,000 MG; Start 05/07/18 at 11:00 Nifedipine (Procardia Xl) 60 mg DAILY PO ; Start 05/08/18 at 09:00 Furosemide (Lasix) 40 mg DAILY IV ; Start 05/08/18 at 09:00 Miscellaneous Information (*Order Clarification Bulletin) VICTOZA IS NON FORMULARY--PLEASE CONSIDER... Q8H XX ; Start 05/07/18 at 11:00 Febuxostat (Uloric) 80 mg DAILY PO ; Start 05/08/18 at 09:00 Agustin Traylor DO May 07, 2018 14:11
[2018-05-07] MEDS ORDERED: FUROSEMIDE 40 MG INJ IV ONE (14:30)
--- NOTE | 2018-05-07 15:05 | CONS ---
DATE OF ADMISSION: 05/07/2018 DATE OF CONSULTATION: 05/07/2018 TYPE OF CONSULTATION: Nephrology. REASON FOR CONSULTATION: Acute kidney injury, CKD. PHYSICIAN REQUESTING CONSULT: Case Garcia NP HISTORY OF PRESENT ILLNESS: This is a 72-year-old male well known to me with a past medical history of chronic kidney disease stage IV with baseline creatinine around 2.5 to 3 mg/dL, a history of hyper tension, history of diabetes, history of cardiomyopathy, history of BPH, gout, dyslipidemia, who pres ents to [facility] with chest pain. The patient was previously at [facility] where he had a prolonged stay and was subsequently discharged home. The patient now complains of substernal chest pain x2 days, 3 days shortness of breath progressively getting worse. As a resul t, he came to the emergency room. Upon arrival, the patient had chest x-ray which showed findings of vascular congestion. In the emergency room, the patient was given diuretic therapy, nebulizers, blo od pressure medications and admitted to telemetry for evaluation. In terms of patient's renal history, the patient as stated above has chronic kidney disease with a ba seline creatinine between 2.5 to 3.0 mg/dL. On admission, the patient's creatinine has at his baseli ne of 2.5 mg/dL. Denies any hemoptysis, hematemesis, hematochezia. PAST MEDICAL HISTORY: As stated above, history of CKD, history of anemia, history of mineral bone di sorder, history of hypertension, diabetes and GERD. PAST SURGICAL HISTORY: Has been reviewed. ALLERGIES: PENICILLIN. FAMILY HISTORY: No family history of kidney disease. SOCIAL HISTORY: Does not drink, smoke or do drugs. MEDICATIONS: Have been reviewed. REVIEW OF SYSTEMS: A 14-point review of systems conducted. Pertinent positives stated in HPI, other ponce negative. PHYSICAL EXAMINATION: VITAL SIGNS: Blood pressure is 177/86, respirations 20, pulse 94, temperature 98.4. HEENT: Head is normocephalic. NECK: Supple. HEART: Regular rate. LUNGS: Show diminished breath sounds at the base. ABDOMEN: Soft, nontender to palpation without rebound or guarding. EXTREMITIES: Negative for clubbing, cyanosis. Trace edema. DERMATOLOGIC: No rashes. MUSCULOSKELETAL: No joint effusion. NEUROLOGIC: No focal deficits. LABORATORY DATA: Show sodium 137, potassium 4.3, BUN 44, creatinine 2.50. White count 10.1, hemoglo bin 11.4, platelet count is 252. ASSESSMENT AND PLAN: This is a 72-year-old male who presents with: 1. Chronic kidney disease stage IV with previous baseline creatinine around 2.5 to 3.0 mg/dL. The p gennaro's renal function is currently at baseline. At this point, we will continue current treatment plans, supportive care, renally dose all meds. Monitor renal function and electrolytes closely on diu retic therapy. 2. Anemia. Monitor hemoglobin and hematocrit levels. 3. Mineral bone disorder. Monitor calcium and phosphorus levels. 4. Diabetes. Continue current insulin regimen. 5. Acute respiratory failure secondary to congestive heart failure exacerbation. Continue diuretic regimen. Continue nebulizers. 6. Arrhythmia. Continue medical management. 7. Hypertension. Current blood pressure regimen. Adjust medications as needed. 8. History of coronary artery disease. Continue current treatment plan. 9. Dyslipidemia. 10. Cardiomyopathy. Continue current medical regimen. 11. History of arrhythmia. The patient is status post LifeVest placement. Thank you, Case, for this interesting consult. It will be a pleasure to follow patient with you th roughout the hospital course. Dictated By: CHRISTOPHER MARIO DO NR/NTS Conf#: [id number] DID#: [id number] CC: DAREN HOLLAND MD;*EndCC*
[2018-05-07] MEDS: ATORVASTATIN 40 MG TAB PO SCH (20:58)
[2018-05-07] MEDS: INSULIN GLARGINE [LANTus] (100 UNITS/ML) SYG SC SCH (21:06)
[2018-05-08] VITALS (9 sets, daily range): BP systolic 124–158; BP diastolic 73–84; PULSE 59–81; RESP 16–20
[2018-05-08] MEDS ORDERED: ACCU-CHEK XX SCH (02:00)
[2018-05-08] MEDS: ACCU-CHEK XX SCH (02:17)
[2018-05-08] MEDS: [UNRECOGNIZED DRUG - OTHER] XX SCH ×3 (03:00→19:00)
[2018-05-08] MEDS: PANTOPRAZOLE (EC) 40 MG TAB PO SCH (05:59)
[2018-05-08] MEDS: INSULIN ASPART [NOVOLOG] 3 ML PEN SC SCH ×4 (07:41→21:18)
[2018-05-08] MEDS ORDERED: FUROSEMIDE 40 MG INJ IV SCH (09:00)
[2018-05-08] MEDS: CLOPIDOGREL 75 MG TAB PO SCH (09:24)
[2018-05-08] MEDS: FEBUXOSTAT 40 MG TABLET PO SCH (09:24)
[2018-05-08] MEDS: ISOSORBIDE MONONITRATE(SR)30 MG TAB PO SCH (09:24)
[2018-05-08] MEDS: FISH OIL 1,000 MG CAP PO SCH ×2 (09:25→21:09)
[2018-05-08] MEDS: NIFEdipine (XL) 60 MG TAB PO SCH (09:25)
[2018-05-08] MEDS: ASPIRIN (EC) 81 MG TAB PO SCH (09:25)
[2018-05-08] MEDS: ENOXAPARIN 30 MG/0.3 ML SYG SC SCH (09:37)
--- NOTE | 2018-05-08 09:41 | PN ---
DATE: 05/08/2018 SUBJECTIVE: The patient is stable, no events overnight. OBJECTIVE: VITAL SIGNS: Blood pressure is 153/84, pulse 59, respirations 20, temperature 98.3. HEENT: Head is normocephalic. NECK: Supple. HEART: Regular rate. LUNGS: Show diminished breath sounds at the base. ABDOMEN: Soft, nontender to palpation without rebound or guarding. EXTREMITIES: Negative for clubbing, cyanosis, no edema. DERMATOLOGIC: No rashes. MUSCULOSKELETAL: No joint effusion. NEUROLOGIC: No change in exam. MEDICATIONS: Reviewed. LABORATORY DATA: Has been reviewed. ASSESSMENT AND PLAN: 1. Nonoliguric acute kidney injury on top of chronic kidney disease with previous baseline creatinin e around 2.5 to 3.0 mg/dL. Etiology of current acute kidney injury is secondary to hemodynamics from diuretic therapy. However, the patient's renal function is overall at baseline. Would continue cur rent treatment plan, supportive treatment dose all meds. Will continue diuretic therapy, monitor ventura sely. 2. Anemia. Monitor hemoglobin and hematocrit levels. 3. Mineral bone disorder, monitor calcium and phosphorus levels. 4. Diabetes. Continue current insulin regimen. 5. Acute respiratory failure secondary to CHF exacerbation. The patient is clinically improving. C ontinue current diuretic regimen, monitor renal function, electrolytes closely. 6. Arrhythmia. Follow up with Cardiology. 7. Hypertension. Continue blood pressure regimen. 8. History of coronary artery disease. 9. Dyslipidemia. 10. Cardiomyopathy. Continue medical management. Dictated By: CHRISTOPHER MARIO DO NR/NTS Conf#: [id number] DID#: [id number] CC: CHUY HORTON MD; DAREN HOLLAND MD;*EndCC*
--- NOTE | 2018-05-08 12:10 | PN ---
Date/Time of Note Date/Time of Note DATE: 05/08/18 TIME: 12:08 Assessment/Plan VTE Prophylaxis Risk score (from Ns)>0 risk: 3 SCD applied (from Ns): No SCD contraindicated: low risk/ambulating Pharmacological prophylaxis: LMWH Lines/Catheters IV [facility]from [facility] [place] Urinary Cath still in place: No Assessment/Plan Hospital Course Assessment and plan 1. Chest pain dyspnea due to decompensated systolic CHF, stable, diuretics 2. Chronic systolic CHF, continue medical management. 3. History of nonsustained V. tach. I believe obtain LifeVest on discharge. Rule out arrhythmia 4. History of nonadherence will be difficult to manage 5. BBB chronic stable observe 6. Type 2 diabetes 7. Essential hypertension 8. Chronic GERD 9. Coronary artery disease? 10. Anemia likely of chronic disease 11. History of gout 12. Failure to thrive. Refused [facility] on last discharge. Subjective: Cough white expectoration no hemoptysis or chest pain or fever. Objective: Bundle branch block but rate controlled Physical exam No pallor, possible JVD Regular no murmur gallop Diminished no tachypnea at rest Bowel sounds present nontender nondistended no RRG No edema/Homans Result Diagram: 05/08/18 0459 05/08/18 0459 Results 24hrs Laboratory Tests Test 05/07/18 15:30 05/07/18 17:39 05/07/18 20:56 05/08/18 02:00 Urine Color STRAW Urine Clarity CLEAR Urine pH 7.0 Urine Specific 1.008 [place] Urine Ketones NEGATIVE Urine Nitrite NEGATIVE Urine Bilirubin NEGATIVE Urine Urobilinogen NEGATIVE Urine Leukocyte NEGATIVE Esterase Urine Microscopic 5 RBC Urine Microscopic 1 WBC Urine Hemoglobin NEGATIVE Urine Random 40.98 Creatinine Urine Random Sodium 64 Urine Glucose NEGATIVE Urine Total Protein 246.0 H Bedside Glucose 153 208 125 Test 05/08/18 04:59 05/08/18 07:36 White Blood Count 9.7 Red Blood Count 4.20 L Hemoglobin 11.4 L Hematocrit 35.1 L Mean Corpuscular 83.6 Volume Mean Corpuscular 27.1 L Hemoglobin Mean Corpuscular 32.5 Hemoglobin Concent Red Cell 14.6 H Distribution Width Platelet Count 270 Mean Platelet Volume 10.5 H Immature 0.300 Granulocytes % Neutrophils % 70.3 Lymphocytes % 11.4 L Monocytes % 12.5 H Eosinophils % 4.7 Basophils % 0.8 Nucleated Red Blood 0.0 Cells % Immature 0.030 Granulocytes # Neutrophils # 6.8 Lymphocytes # 1.1 Monocytes # 1.2 H Eosinophils # 0.5 Basophils # 0.1 Nucleated Red Blood 0.0 Cells # Sodium Level 139 Potassium Level 3.7 Chloride Level 98 Carbon Dioxide Level 26 Anion Gap 15 H Blood Urea Nitrogen 55 H Creatinine 2.81 H Est Glomerular Filtrat Rate mL/min Glucose Level 162 # Calcium Level 9.3 Phosphorus Level 4.3 Magnesium Level 2.0 Total Bilirubin 0.5 Direct Bilirubin 0.00 Indirect Bilirubin 0.5 Aspartate Amino 17 Transf (AST/SGOT) Alanine 12 L Aminotransferase (AL T/SGPT) Alkaline Phosphatase 89 Troponin I 0.087 Total Protein 6.5 Albumin 3.6 Globulin 2.90 Albumin/Globulin 1.24 Ratio Bedside Glucose 149 Exam/Review of Systems Exam Vitals Vital Signs Date Temp Pulse Resp B/P (MAP) Pulse Ox O2 O2 Flow FiO2 Time Delivery Rate 05/08/18 98.5 73 20 146/77 95 Room Air 11:45 (100) 05/07/18 2.0 19:15 05/06/18 28 23:30 Intake and Output 05/07/18 05/07/18 05/08/18 1515:00 23:00 07:00 IntakeIntake Total 250 ml 600 ml 650 ml OutputOutput Total 450 ml 550 ml 700 ml BalanceBalance -200 ml 50 ml -50 ml Results Results 24hrs Laboratory Tests Test 05/07/18 15:30 05/07/18 17:39 05/07/18 20:56 05/08/18 02:00 Urine Color STRAW Urine Clarity CLEAR Urine pH 7.0 Urine Specific 1.008 [place] Urine Ketones NEGATIVE Urine Nitrite NEGATIVE Urine Bilirubin NEGATIVE Urine Urobilinogen NEGATIVE Urine Leukocyte NEGATIVE Esterase Urine Microscopic 5 RBC Urine Microscopic 1 WBC Urine Hemoglobin NEGATIVE Urine Random 40.98 Creatinine Urine Random Sodium 64 Urine Glucose NEGATIVE Urine Total Protein 246.0 H Bedside Glucose 153 208 125 Test 05/08/18 04:59 05/08/18 07:36 White Blood Count 9.7 Red Blood Count 4.20 L Hemoglobin 11.4 L Hematocrit 35.1 L Mean Corpuscular 83.6 Volume Mean Corpuscular 27.1 L Hemoglobin Mean Corpuscular 32.5 Hemoglobin Concent Red Cell 14.6 H Distribution Width Platelet Count 270 Mean Platelet Volume 10.5 H Immature 0.300 Granulocytes % Neutrophils % 70.3 Lymphocytes % 11.4 L Monocytes % 12.5 H Eosinophils % 4.7 Basophils % 0.8 Nucleated Red Blood 0.0 Cells % Immature 0.030 Granulocytes # Neutrophils # 6.8 Lymphocytes # 1.1 Monocytes # 1.2 H Eosinophils # 0.5 Basophils # 0.1 Nucleated Red Blood 0.0 Cells # Sodium Level 139 Potassium Level 3.7 Chloride Level 98 Carbon Dioxide Level 26 Anion Gap 15 H Blood Urea Nitrogen 55 H Creatinine 2.81 H Est Glomerular Filtrat Rate mL/min Glucose Level 162 # Calcium Level 9.3 Phosphorus Level 4.3 Magnesium Level 2.0 Total Bilirubin 0.5 Direct Bilirubin 0.00 Indirect Bilirubin 0.5 Aspartate Amino 17 Transf (AST/SGOT) Alanine 12 L Aminotransferase (AL T/SGPT) Alkaline Phosphatase 89 Troponin I 0.087 Total Protein 6.5 Albumin 3.6 Globulin 2.90 Albumin/Globulin 1.24 Ratio Bedside Glucose 149 Medications Medication Current Medications IV Flush (NS 3 ml) 3 ml PER PROTOCOL IV ; Start 05/07/18 at 00:30 Ondansetron HCl (Zofran Inj) 4 mg Q6H PRN IV NAUSEA/VOMITING; Start 05/07/18 at 00:30 Acetaminophen (Tylenol Tab) 650 mg Q6H PRN PO .PAIN 1-3 OR TEMP; Start 05/07/18 at 00:30 Docusate Sodium (Colace) 100 mg Q12H PRN PO .CONSTIPATION Last administered on 05/07/18at 18:36; Admin Dose 100 MG; Start 05/07/18 at 00:30 Bisacodyl (Dulcolax) 5 mg DAILY PRN PO .CONSTIPATION Last administered on 05/07/18at 21:16; Admin Dose 5 MG; Start 05/07/18 at 00:30 Enoxaparin Sodium (Lovenox) 30 mg DAILY SC Last administered on 05/08/18at 09:37; Admin Dose 30 MG; Start 05/07/18 at 09:00 Insulin Glargine (Lantus) 40 units QPM SC Last administered on 05/07/18 21:06; Admin Dose 40 UNITS; Start 05/07/18 at 21:00 Miscellaneous Information 1.8 mg QAM SQ ; Start 05/07/18 at 09:00; Status UNV Diagnostic Test (Pha) (Accu-Chek) 1 ea 02 XX Last administered on 05/08/18at 02:17; Admin Dose 1 EA; Start 05/07/18 at 02:00 Insulin Aspart (Novolog Insulin Pen) NOVOLOG *MILD* ALGORITHM WITH MEALS BEDTIME SC Last administered on 05/08/18at 11:57; Admin Dose 3 UNIT; Start 05/07/18 at 08:00 Miscellaneous Information 1 ea NOTE XX ; Start 05/07/18 at 01:00 Glucose (Glutose) 15 gm Q15M PRN PO DECREASED GLUCOSE; Start 05/07/18 at 01:00 Glucose (Glutose) 22.5 gm Q15M PRN PO DECREASED GLUCOSE; Start 05/07/18 at 01:00 Dextrose (D50w Syringe) 25 ml Q15M PRN IV DECREASED GLUCOSE; Start 05/07/18 at 01:00 Dextrose (D50w Syringe) 50 ml Q15M PRN IV DECREASED GLUCOSE; Start 05/07/18 at 01:00 Glucagon (Glucagen) 1 mg Q15M PRN IM DECREASED GLUCOSE; Start 05/07/18 at 01:00 Glucose (Glutose) 15 gm Q15M PRN BUCCAL DECREASED GLUCOSE; Start 05/07/18 at 01:00 Miscellaneous Information Patients own medicat... BID@10,16 XX ; Start 05/07/18 at 10:00 Aspirin (Halfprin) 81 mg DAILY PO Last administered on 05/08/18at 09:25; Admin Dose 81 MG; Start 05/08/18 at 09:00 Atorvastatin Calcium (Lipitor) 40 mg QHS PO Last administered on 05/07/18at 20:58; Admin Dose 40 MG; Start 05/07/18 at 21:00 Carvedilol (Coreg) 6.25 mg BID PO Last administered on 05/08/18 09:23; Admin Dose 6.25 MG; Start 05/07/18 at 21:00 Clopidogrel Bisulfate (plaVIX) 75 mg DAILY PO Last administered on 05/08/18 09:24; Admin Dose 75 MG; Start 05/08/18 at 09:00 Hydralazine HCl (Apresoline) 50 mg BID PO Last administered on 05/08/18 09:24; Admin Dose 50 MG; Start 05/07/18 at 21:00 Isosorbide Mononitrate (Imdur) 30 mg DAILY PO Last administered on 05/08/18 09 :24; Admin Dose 30 MG; Start 05/08/18 at 09:00 Pantoprazole (Protonix Tab) 40 mg DAILY@06 PO Last administered on 05/08/18 05:59; Admin Dose 40 MG; Start 05/08/18 at 06:00 Fish Oil (Fish Oil) 2,000 mg BID PO Last administered on 05/08/18 09:25; Admin Dose 2,000 MG; Start 05/07/18 at 11:00 Nifedipine (Procardia Xl) 60 mg DAILY PO Last administered on 05/08/18 09:25; Admin Dose 60 MG; Start 05/08/18 at 09:00 Furosemide (Lasix) 40 mg DAILY IV Last administered on 05/08/18 09:25; Admin Dose 40 MG; Start 05/08/18 at 09:00 Miscellaneous Information (*Order Clarification Bulletin) VICTOZA IS NON FORMULARY--PLEASE CONSIDER... Q8H XX ; Start 05/07/18 at 11:00 Febuxostat (Uloric) 80 mg DAILY PO Last administered on 05/08/18 09:24; Admin Dose 80 MG; Start 05/08/18 at 09:00 CHUY HORTON MD May 08, 2018 12:10
--- NOTE | 2018-05-08 12:19 | CONS ---
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 Serial cardiac enzymes are negative. ECG baseline left bundle -Patient currently on Lasix 40 mg IV daily, does have baseline renal dy sfunction, diuretic titration as per nephrology -Continue beta-abraham, not on LOLY inhibitor secondary to abnormal renal function -Patient was refusing LifeVest on previous admission but appears he was fitted. He does have a LifeVest device in his items. Upon discharge, would recommend continue adherence and plan for outpatient electrophysiology evaluation for biventricular pacemaker/ICD Consultation Date/Type/Reason Admit Date/Time May 07, 2018 at 00:07 Initial Consult Date Type of Consult Cardiology Date/Time of Note DATE: 05/08/18 TIME: 12:18 24 HR Interval Summary Free Text/Dictation Shortness of breath is better. Denies chest pain or palpitations Exam/Review of Systems Vital Signs Vitals Vital Signs Date Temp Pulse Resp B/P (MAP) Pulse Ox O2 O2 Flow FiO2 Time Delivery Rate 05/08/18 98.5 73 20 146/77 95 Room Air 11:45 (100) 05/07/18 2.0 19:15 05/06/18 28 23:30 Intake and Output 05/07/18 05/07/18 05/08/18 1515:00 23:00 07:00 IntakeIntake Total 250 ml 600 ml 650 ml OutputOutput Total 450 ml 550 ml 700 ml BalanceBalance -200 ml 50 ml -50 ml Exam Constitutional: alert, oriented (No apparent distress) Head: normocephalic Respiratory: other (Coarse breath sounds bilaterally, no wheezing) Cardiovascular: regular rate and rhythm (S1-S2 heard) Gastrointestinal: soft, non-tender, bowel sounds Extremities: edema Labs Result Diagram: 05/08/18 0459 05/08/18 0459 Results 24hrs Laboratory Tests Test 05/07/18 15:30 05/07/18 17:39 05/07/18 20:56 05/08/18 02:00 Urine Color STRAW Urine Clarity CLEAR Urine pH 7.0 Urine Specific 1.008 [place] Urine Ketones NEGATIVE Urine Nitrite NEGATIVE Urine Bilirubin NEGATIVE Urine Urobilinogen NEGATIVE Urine Leukocyte NEGATIVE Esterase Urine Microscopic 5 RBC Urine Microscopic 1 WBC Urine Hemoglobin NEGATIVE Urine Random 40.98 Creatinine Urine Random Sodium 64 Urine Glucose NEGATIVE Urine Total Protein 246.0 H Bedside Glucose 153 208 125 Test 05/08/18 04:59 05/08/18 07:36 White Blood Count 9.7 Red Blood Count 4.20 L Hemoglobin 11.4 L Hematocrit 35.1 L Mean Corpuscular 83.6 Volume Mean Corpuscular 27.1 L Hemoglobin Mean Corpuscular 32.5 Hemoglobin Concent Red Cell 14.6 H Distribution Width Platelet Count 270 Mean Platelet Volume 10.5 H Immature 0.300 Granulocytes % Neutrophils % 70.3 Lymphocytes % 11.4 L Monocytes % 12.5 H Eosinophils % 4.7 Basophils % 0.8 Nucleated Red Blood 0.0 Cells % Immature 0.030 Granulocytes # Neutrophils # 6.8 Lymphocytes # 1.1 Monocytes # 1.2 H Eosinophils # 0.5 Basophils # 0.1 Nucleated Red Blood 0.0 Cells # Sodium Level 139 Potassium Level 3.7 Chloride Level 98 Carbon Dioxide Level 26 Anion Gap 15 H Blood Urea Nitrogen 55 H Creatinine 2.81 H Est Glomerular Filtrat Rate mL/min Glucose Level 162 # Calcium Level 9.3 Phosphorus Level 4.3 Magnesium Level 2.0 Total Bilirubin 0.5 Direct Bilirubin 0.00 Indirect Bilirubin 0.5 Aspartate Amino 17 Transf (AST/SGOT) Alanine 12 L Aminotransferase (AL T/SGPT) Alkaline Phosphatase 89 Troponin I 0.087 Total Protein 6.5 Albumin 3.6 Globulin 2.90 Albumin/Globulin 1.24 Ratio Bedside Glucose 149 Medications Medications Current Medications IV Flush (NS 3 ml) 3 ml PER PROTOCOL IV ; Start 05/07/18 at 00:30 Ondansetron HCl (Zofran Inj) 4 mg Q6H PRN IV NAUSEA/VOMITING; Start 05/07/18 at 00:30 Acetaminophen (Tylenol Tab) 650 mg Q6H PRN PO .PAIN 1-3 OR TEMP; Start 05/07/18 at 00:30 Docusate Sodium (Colace) 100 mg Q12H PRN PO .CONSTIPATION Last administered on 05/07/18at 18:36; Admin Dose 100 MG; Start 05/07/18 at 00:30 Bisacodyl (Dulcolax) 5 mg DAILY PRN PO .CONSTIPATION Last administered on 05/07/18 21:16; Admin Dose 5 MG; Start 05/07/18 at 00:30 Enoxaparin Sodium (Lovenox) 30 mg DAILY SC Last administered on 05/08/18 09:37; Admin Dose 30 MG; Start 05/07/18 at 09:00 Insulin Glargine (Lantus) 40 units QPM SC Last administered on 05/07/18 21:06; Admin Dose 40 UNITS; Start 05/07/18 at 21:00 Miscellaneous Information 1.8 mg QAM SQ ; Start 05/07/18 at 09:00; Status UNV Diagnostic Test (Pha) (Accu-Chek) 1 ea 02 XX Last administered on 05/08/18 02:17; Admin Dose 1 EA; Start 05/07/18 at 02:00 Insulin Aspart (Novolog Insulin Pen) NOVOLOG *MILD* ALGORITHM WITH MEALS BEDTIME SC Last administered on 05/08/18 11:57; Admin Dose 3 UNIT; Start 05/07/18 at 08:00 Miscellaneous Information 1 ea NOTE XX ; Start 05/07/18 at 01:00 Glucose (Glutose) 15 gm Q15M PRN PO DECREASED GLUCOSE; Start 05/07/18 at 01:00 Glucose (Glutose) 22.5 gm Q15M PRN PO DECREASED GLUCOSE; Start 05/07/18 at 01:00 Dextrose (D50w Syringe) 25 ml Q15M PRN IV DECREASED GLUCOSE; Start 05/07/18 at 01:00 Dextrose (D50w Syringe) 50 ml Q15M PRN IV DECREASED GLUCOSE; Start 05/07/18 at 01:00 Glucagon (Glucagen) 1 mg Q15M PRN IM DECREASED GLUCOSE; Start 05/07/18 at 01:00 Glucose (Glutose) 15 gm Q15M PRN BUCCAL DECREASED GLUCOSE; Start 05/07/18 at 01:00 Miscellaneous Information Patients own medicat... BID@,16 XX ; Start 05/07/18 at 10:00 Aspirin (Halfprin) 81 mg DAILY PO Last administered on 05/08/18 09:25; Admin Dose 81 MG; Start 05/08/18 at 09:00 Atorvastatin Calcium (Lipitor) 40 mg QHS PO Last administered on 05/07/18at 20:58; Admin Dose 40 MG; Start 05/07/18 at 21:00 Carvedilol (Coreg) 6.25 mg BID PO Last administered on 05/08/18 09:23; Admin Dose 6.25 MG; Start 05/07/18 at 21:00 Clopidogrel Bisulfate (plaVIX) 75 mg DAILY PO Last administered on 05/08/18 09:24; Admin Dose 75 MG; Start 05/08/18 at 09:00 Hydralazine HCl (Apresoline) 50 mg BID PO Last administered on 05/08/18 09:24; Admin Dose 50 MG; Start 05/07/18 at 21:00 Isosorbide Mononitrate (Imdur) 30 mg DAILY PO Last administered on 05/08/18 09:24; Admin Dose 30 MG; Start 05/08/18 at 09:00 Pantoprazole (Protonix Tab) 40 mg DAILY@06 PO Last administered on 05/08/18 05:59; Admin Dose 40 MG; Start 05/08/18 at 06:00 Fish Oil (Fish Oil) 2,000 mg BID PO Last administered on 05/08/18 09:25; Admin Dose 2,000 MG; Start 05/07/18 at 11:00 Nifedipine (Procardia Xl) 60 mg DAILY PO Last administered on 05/08/18 09:25; Admin Dose 60 MG; Start 05/08/18 at 09:00 Miscellaneous Information (*Order Clarification Bulletin) VICTOZA IS NON FORMULARY--PLEASE CONSIDER... Q8H XX ; Start 05/07/18 at 11:00 Febuxostat (Uloric) 80 mg DAILY PO Last administered on 05/08/18 09:24; Admin Dose 80 MG; Start 05/08/18 at 09:00 Furosemide (Lasix) 40 mg BID DIURETICS IV ; Start 05/08/18 at 18:00 Lactobacillus Acidophilus/ Rhamnosus (Culturelle) 1 cap BID PO ; Start 05/08/18 at 21:00 Agustin Traylor DO May 08, 2018 12:19
[2018-05-08] MEDS: FUROSEMIDE 40 MG INJ IV SCH (17:29)
[2018-05-08] MEDS: ATORVASTATIN 40 MG TAB PO SCH (21:08)
[2018-05-08] MEDS: LACTOBACILLUS RHAMNOSUS CAP PO SCH (21:09)
[2018-05-08] MEDS: INSULIN GLARGINE [LANTus] (100 UNITS/ML) SYG SC SCH (21:17)
[2018-05-09] VITALS (10 sets, daily range): BP systolic 130–134; BP diastolic 61–78; PULSE 66–78; RESP 18–20
[2018-05-09] MEDS: ACCU-CHEK XX SCH (02:18)
[2018-05-09] MEDS: [UNRECOGNIZED DRUG - OTHER] XX SCH ×3 (03:00→19:00)
[2018-05-09] MEDS: FUROSEMIDE 40 MG INJ IV SCH (05:39)
[2018-05-09] MEDS: PANTOPRAZOLE (EC) 40 MG TAB PO SCH (05:39)
[2018-05-09] MEDS: INSULIN ASPART [NOVOLOG] 3 ML PEN SC SCH ×4 (08:37→21:26)
[2018-05-09] MEDS ORDERED: POTASSIUM CHLORIDE (SR) 20 MEQ TAB PO STA (08:58)
[2018-05-09] MEDS: CLOPIDOGREL 75 MG TAB PO SCH (09:26)
[2018-05-09] MEDS: ASPIRIN (EC) 81 MG TAB PO SCH (09:26)
[2018-05-09] MEDS: FISH OIL 1,000 MG CAP PO SCH ×2 (09:26→21:00)
[2018-05-09] MEDS: FEBUXOSTAT 40 MG TABLET PO SCH (09:26)
[2018-05-09] MEDS: ISOSORBIDE MONONITRATE(SR)30 MG TAB PO SCH (09:26)
[2018-05-09] MEDS: NIFEdipine (XL) 60 MG TAB PO SCH (09:27)
[2018-05-09] MEDS: ENOXAPARIN 30 MG/0.3 ML SYG SC SCH (09:39)
[2018-05-09] MEDS: LACTOBACILLUS RHAMNOSUS CAP PO SCH ×2 (10:07→21:00)
--- NOTE | 2018-05-09 10:26 | PN ---
DATE: 05/09/2018 SUBJECTIVE: The patient is clinically improving. No events overnight. OBJECTIVE: VITAL SIGNS: Blood pressure is 134/78, pulse 67, respirations 20, temperature 97.8. HEENT: Head is normocephalic. NECK: Supple. HEART: Regular rate. LUNGS: Show diminished breath sounds at the base. ABDOMEN: Soft, nontender to palpation without rebound or guarding. EXTREMITIES: Negative for clubbing, cyanosis, no edema. DERMATOLOGIC: No rashes. MUSCULOSKELETAL: No joint effusion. NEUROLOGIC: No change in exam. MEDICATIONS: Reviewed. LABORATORY DATA: From 05/09/2018 was reviewed. The patient's BUN is 62, creatinine 3.06, potassium 3.3. ASSESSMENT AND PLAN: 1. Nonoliguric acute kidney injury on top of chronic kidney with previous baseline creatinine of 2.5 to 3.0 mg/dL. Etiology of acute kidney injury is secondary to hemodynamics from diuretics. The pat ient's renal function has declined in the last 24 to 48 hours. Plan would be to deescalate diuretic therapy. Otherwise, continue current treatment plans, supportive care, renally dose all medicines. 2. Anemia. Monitor hemoglobin and hematocrit levels. 3. Mineral bone disorder. Monitor calcium and phosphorus levels. 4. Diabetes. Continue current insulin regimen. 5. Acute respiratory failure secondary to congestive heart failure exacerbation. The patient is cli nically improving. We will adjust diuretic therapy as stated above, due to worsening renal function. 6. Arrhythmia. The patient is not wearing a LifeVest. Continue to monitor. Follow up with Cardiol odilon. 7. Hypertension. Continue current blood pressure regimen. 8. History of coronary artery disease. 9. Dyslipidemia. Continue statin therapy. 10. Cardiomyopathy. Continue medical management. Dictated By: CHRISTOPHER MARIO DO NR/NTS Conf#: [id number] DID#: [id number] CC: DAREN HOLLAND MD; CHUY HORTON MD;*EndCC*
--- NOTE | 2018-05-09 11:01 | PN ---
Date/Time of Note Date/Time of Note DATE: 05/09/18 TIME: 10:59 Assessment/Plan VTE Prophylaxis Risk score (from Ns)>0 risk: 5 SCD applied (from Ns): No SCD contraindicated: low risk/ambulating Pharmacological prophylaxis: NA/contraindicated Pharm contraindication: low risk/ambulating Lines/Catheters IV [facility]ter Type [facility]from [facility] Saline Lock Urinary Cath still in place: No Assessment/Plan Hospital Course Assessment and plan 1. Chest pain dyspnea, due to decompensated systolic CHF, stable, just diuretics 2. Chronic systolic CHF, continue medical management. 3. Ho nsvt. LifeVest was obtained on discharge last time. Presently it is kept in his closet. no arrhythmias. 4. History of nonadherence will be difficult to manage 5. BBB chronic stable observe 6. Type 2 diabetes 7. Essential hypertension 8. Chronic GERD 9. Coronary artery disease? 10. Anemia likely of chronic disease 11. History of gout 12. Failure to thrive. Refused Hospice and Snf on last discharge. 13. Chronic kidney disease baseline around 2.5. Will hold today's diabetic Subjective: 05/08 cough white expectoration no hemoptysis or chest pain or fever. 05/09 ambulated with PT no arrhythmias no distress. Objective: Bundle branch block but rate controlled Physical exam No pallor, possible JVD Regular no murmur gallop Diminished no tachypnea at rest Bowel sounds present nontender nondistended no RRG No edema/Homans Result Diagram: 05/09/18 0504 05/09/18 0504 Results 24hrs Laboratory Tests Test 05/08/18 11:53 05/08/18 17:13 05/08/18 21:07 05/09/18 02:04 Bedside Glucose 240 H 140 224 H 97 Test 05/09/18 05:04 05/09/18 08:16 White Blood Count 8.7 Red Blood Count 3.81 L Hemoglobin 10.4 L Hematocrit 32.0 L Mean Corpuscular 84.0 Volume Mean Corpuscular 27.3 L Hemoglobin Mean Corpuscular 32.5 Hemoglobin Concent Red Cell 14.5 Distribution Width Platelet Count 259 Mean Platelet Volume 10.5 H Immature 0.300 Granulocytes % Neutrophils % 70.7 Lymphocytes % 10.2 L Monocytes % 13.8 H Eosinophils % 4.3 Basophils % 0.7 Nucleated Red Blood 0.0 Cells % Immature 0.030 Granulocytes # Neutrophils # 6.1 Lymphocytes # 0.9 Monocytes # 1.2 H Eosinophils # 0.4 Basophils # 0.1 Nucleated Red Blood 0.0 Cells # Sodium Level 140 Potassium Level 3.3 L Chloride Level 98 Carbon Dioxide Level 27 Anion Gap 15 H Blood Urea Nitrogen 62 H Creatinine 3.06 H Est Glomerular Filtrat Rate mL/min Glucose Level 135 Calcium Level 9.2 Phosphorus Level 4.4 Magnesium Level 1.9 Bedside Glucose 162 Exam/Review of Systems Exam Vitals Vital Signs Date Temp Pulse Resp B/P (MAP) Pulse Ox O2 O2 Flow FiO2 Time Delivery Rate 05/09/18 78 08:58 05/09/18 97.8 20 134/78 94 07:52 (96) 05/08/18 Room Air 15:43 05/07/18 2.0 19:15 05/06/18 28 23:30 Intake and Output 05/08/18 05/08/18 05/09/18 1515:00 23:00 07:00 IntakeIntake Total 360 ml 640 ml 450 ml OutputOutput Total 950 ml 1000 ml BalanceBalance 360 ml -310 ml -550 ml Results Results 24hrs Laboratory Tests Test 05/08/18 11:53 05/08/18 17:13 05/08/18 21:07 05/09/18 02:04 Bedside Glucose 240 H 140 224 H 97 Test 05/09/18 05:04 05/09/18 08:16 White Blood Count 8.7 Red Blood Count 3.81 L Hemoglobin 10.4 L Hematocrit 32.0 L Mean Corpuscular 84.0 Volume Mean Corpuscular 27.3 L Hemoglobin Mean Corpuscular 32.5 Hemoglobin Concent Red Cell 14.5 Distribution Width Platelet Count 259 Mean Platelet Volume 10.5 H Immature 0.300 Granulocytes % Neutrophils % 70.7 Lymphocytes % 10.2 L Monocytes % 13.8 H Eosinophils % 4.3 Basophils % 0.7 Nucleated Red Blood 0.0 Cells % Immature 0.030 Granulocytes # Neutrophils # 6.1 Lymphocytes # 0.9 Monocytes # 1.2 H Eosinophils # 0.4 Basophils # 0.1 Nucleated Red Blood 0.0 Cells # Sodium Level 140 Potassium Level 3.3 L Chloride Level 98 Carbon Dioxide Level 27 Anion Gap 15 H Blood Urea Nitrogen 62 H Creatinine 3.06 H Est Glomerular Filtrat Rate mL/min Glucose Level 135 Calcium Level 9.2 Phosphorus Level 4.4 Magnesium Level 1.9 Bedside Glucose 162 Medications Medication Current Medications IV Flush (NS 3 ml) 3 ml PER PROTOCOL IV ; Start 05/07/18 at 00:30 Ondansetron HCl (Zofran Inj) 4 mg Q6H PRN IV NAUSEA/VOMITING; Start 05/07/18 at 00:30 Acetaminophen (Tylenol Tab) 650 mg Q6H PRN PO .PAIN 1-3 OR TEMP; Start 05/07/18 at 00:30 Docusate Sodium (Colace) 100 mg Q12H PRN PO .CONSTIPATION Last administered on 05/07/18 18:36; Admin Dose 100 MG; Start 05/07/18 at 00:30 Bisacodyl (Dulcolax) 5 mg DAILY PRN PO .CONSTIPATION Last administered on 05/07/18 21:16; Admin Dose 5 MG; Start 05/07/18 at 00:30 Enoxaparin Sodium (Lovenox) 30 mg DAILY SC Last administered on 05/09/18at 09:39; Admin Dose 30 MG; Start 05/07/18 at 09:00 Insulin Glargine (Lantus) 40 units QPM SC Last administered on 05/08/18 21:17; Admin Dose 40 UNITS; Start 05/07/18 at 21:00 Miscellaneous Information 1.8 mg QAM SQ ; Start 05/07/18 at 09:00; Status UNV Diagnostic Test (Pha) (Accu-Chek) 1 ea 02 XX Last administered on 05/09/18at 02:18; Admin Dose 1 EA; Start 05/07/18 at 02:00 Insulin Aspart (Novolog Insulin Pen) NOVOLOG *MILD* ALGORITHM WITH MEALS BEDTIME SC Last administered on 05/09/18at 08:37; Admin Dose 1 UNIT; Start 05/07/18 at 08:00 Miscellaneous Information 1 ea NOTE XX ; Start 05/07/18 at 01:00 Glucose (Glutose) 15 gm Q15M PRN PO DECREASED GLUCOSE; Start 05/07/18 at 01:00 Glucose (Glutose) 22.5 gm Q15M PRN PO DECREASED GLUCOSE; Start 05/07/18 at 01:00 Dextrose (D50w Syringe) 25 ml Q15M PRN IV DECREASED GLUCOSE; Start 05/07/18 at 01:00 Dextrose (D50w Syringe) 50 ml Q15M PRN IV DECREASED GLUCOSE; Start 05/07/18 at 01:00 Glucagon (Glucagen) 1 mg Q15M PRN IM DECREASED GLUCOSE; Start 05/07/18 at 01:00 Glucose (Glutose) 15 gm Q15M PRN BUCCAL DECREASED GLUCOSE; Start 05/07/18 at 01:00 Miscellaneous Information Patients own medicat... BID@10,16 XX ; Start 05/07/18 at 10:00 Aspirin (Halfprin) 81 mg DAILY PO Last administered on 05/09/18 09:26; Admin Dose 81 MG; Start 05/08/18 at 09:00 Atorvastatin Calcium (Lipitor) 40 mg QHS PO Last administered on 05/08/18 21:08; Admin Dose 40 MG; Start 05/07/18 at 21:00 Carvedilol (Coreg) 6.25 mg BID PO Last administered on 05/09/18 09:27; Admin Dose 6.25 MG; Start 05/07/18 at 21:00 Clopidogrel Bisulfate (plaVIX) 75 mg DAILY PO Last administered on 05/09/18 09:26; Admin Dose 75 MG; Start 05/08/18 at 09:00 Hydralazine HCl (Apresoline) 50 mg BID PO Last administered on 05/09/18 09:25; Admin Dose 50 MG; Start 05/07/18 at 21:00 Isosorbide Mononitrate (Imdur) 30 mg DAILY PO Last administered on 05/09/18 09:26; Admin Dose 30 MG; Start 05/08/18 at 09:00 Pantoprazole (Protonix Tab) 40 mg DAILY@06 PO Last administered on 05/09/18 05:39; Admin Dose 40 MG; Start 05/08/18 at 06:00 Fish Oil (Fish Oil) 2,000 mg BID PO Last administered on 05/09/18 09:26; Admin Dose 2,000 MG; Start 05/07/18 at 11:00 Nifedipine (Procardia Xl) 60 mg DAILY PO Last administered on 05/09/18 09:27; Admin Dose 60 MG; Start 05/08/18 at 09:00 Miscellaneous Information (*Order Clarification Bulletin) VICTOZA IS NON FORMULARY--PLEASE CONSIDER... Q8H XX ; Start 05/07/18 at 11:00 Febuxostat (Uloric) 80 mg DAILY PO Last administered on 05/09/18at 09:26; Admin Dose 80 MG; Start 05/08/18 at 09:00 Lactobacillus Acidophilus/ Rhamnosus (Culturelle) 1 cap BID PO Last administered on 05/09/18at 10:07; Admin Dose 1 CAP; Start 05/08/18 at 21:00 Furosemide (Lasix) 40 mg DAILY PO ; Start 05/10/18 at 09:00 CHUY HORTON MD May 09, 2018 11:01
[2018-05-09] MEDS: ACETAMINOPHEN 325 MG TAB PO PRN (14:07)
--- NOTE | 2018-05-09 16:42 | CONS ---
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 Serial cardiac enzymes are negative. ECG baseline left bundle -Patient currently on Lasix 40 mg po daily, does have baseline renal dy sfunction, diuretic titration as per nephrology -Continue beta-abraham, not on LOLY inhibitor secondary to abnormal renal function -Patient was refusing LifeVest on previous admission but appears he was fitted. He does have a LifeVest device in his items. Upon discharge, would recommend continue adherence and plan for outpatient electrophysiology evaluation for biventricular pacemaker/ICD -DC planning Consultation Date/Type/Reason Admit Date/Time May 07, 2018 at 00:07 Initial Consult Date Type of Consult Cardiology Date/Time of Note DATE: 05/09/18 TIME: 16:41 24 HR Interval Summary Free Text/Dictation Shortness of breath is better. Denies palpitations, chest pain Exam/Review of Systems Vital Signs Vitals Vital Signs Date Temp Pulse Resp B/P (MAP) Pulse Ox O2 O2 Flow FiO2 Time Delivery Rate 05/09/18 76 16:27 05/09/18 98.2 20 131/72 94 15:34 (91) 05/08/18 Room Air 15:43 05/07/18 2.0 19:15 05/06/18 28 23:30 Intake and Output 05/08/18 05/08/18 05/09/18 1515:00 23:00 07:00 IntakeIntake Total 360 ml 640 ml 450 ml OutputOutput Total 950 ml 1000 ml BalanceBalance 360 ml -310 ml -550 ml Exam Constitutional: alert, oriented (No apparent distress) Head: normocephalic Respiratory: other (Coarse breath sounds bilaterally, no wheezing) Cardiovascular: regular rate and rhythm (S1-S2 heard) Gastrointestinal: soft, non-tender, bowel sounds Extremities: edema (Trace) Labs Result Diagram: 05/09/18 0504 05/09/18 0504 Results 24hrs Laboratory Tests Test 05/08/18 17:13 05/08/18 21:07 05/09/18 02:04 05/09/18 05:04 Bedside Glucose 140 224 H 97 White Blood Count 8.7 Red Blood Count 3.81 L Hemoglobin 10.4 L Hematocrit 32.0 L Mean Corpuscular 84.0 Volume Mean Corpuscular 27.3 L Hemoglobin Mean Corpuscular 32.5 Hemoglobin Concent Red Cell 14.5 Distribution Width Platelet Count 259 Mean Platelet Volume 10.5 H Immature 0.300 Granulocytes % Neutrophils % 70.7 Lymphocytes % 10.2 L Monocytes % 13.8 H Eosinophils % 4.3 Basophils % 0.7 Nucleated Red Blood 0.0 Cells % Immature 0.030 Granulocytes # Neutrophils # 6.1 Lymphocytes # 0.9 Monocytes # 1.2 H Eosinophils # 0.4 Basophils # 0.1 Nucleated Red Blood 0.0 Cells # Sodium Level 140 Potassium Level 3.3 L Chloride Level 98 Carbon Dioxide Level 27 Anion Gap 15 H Blood Urea Nitrogen 62 H Creatinine 3.06 H Est Glomerular Filtrat Rate mL/min Glucose Level 135 Calcium Level 9.2 Phosphorus Level 4.4 Magnesium Level 1.9 Test 05/09/18 08:16 05/09/18 12:28 Bedside Glucose 162 136 Medications Medications Current Medications IV Flush (NS 3 ml) 3 ml PER PROTOCOL IV ; Start 05/07/18 at 00:30 Ondansetron HCl (Zofran Inj) 4 mg Q6H PRN IV NAUSEA/VOMITING; Start 05/07/18 at 00:30 Acetaminophen (Tylenol Tab) 650 mg Q6H PRN PO .PAIN 1-3 OR TEMP Last administe red on 05/09/18 14:07; Admin Dose 650 MG; Start 05/07/18 at 00:30 Docusate Sodium (Colace) 100 mg Q12H PRN PO .CONSTIPATION Last administered on 05/07/18 18:36; Admin Dose 100 MG; Start 05/07/18 at 00:30 Bisacodyl (Dulcolax) 5 mg DAILY PRN PO .CONSTIPATION Last administered on 05/07/18 21:16; Admin Dose 5 MG; Start 05/07/18 at 00:30 Enoxaparin Sodium (Lovenox) 30 mg DAILY SC Last administered on 05/09/18 09:39; Admin Dose 30 MG; Start 05/07/18 at 09:00 Insulin Glargine (Lantus) 40 units QPM SC Last administered on 3/25/19at 21:17; Admin Dose 40 UNITS; Start 05/07/18 at 21:00 Miscellaneous Information 1.8 mg QAM SQ ; Start 05/07/18 at 09:00; Status UNV Diagnostic Test (Pha) (Accu-Chek) 1 ea 02 XX Last administered on 05/09/18at 02:18; Admin Dose 1 EA; Start 05/07/18 at 02:00 Insulin Aspart (Novolog Insulin Pen) NOVOLOG *MILD* ALGORITHM WITH MEALS BEDTIME SC Last administered on 05/09/18at 08:37; Admin Dose 1 UNIT; Start 05/07/18 at 08:00 Miscellaneous Information 1 ea NOTE XX ; Start 05/07/18 at 01:00 Glucose (Glutose) 15 gm Q15M PRN PO DECREASED GLUCOSE; Start 05/07/18 at 01:00 Glucose (Glutose) 22.5 gm Q15M PRN PO DECREASED GLUCOSE; Start 05/07/18 at 01:00 Dextrose (D50w Syringe) 25 ml Q15M PRN IV DECREASED GLUCOSE; Start 05/07/18 at 01:00 Dextrose (D50w Syringe) 50 ml Q15M PRN IV DECREASED GLUCOSE; Start 05/07/18 at 01:00 Glucagon (Glucagen) 1 mg Q15M PRN IM DECREASED GLUCOSE; Start 05/07/18 at 01:00 Glucose (Glutose) 15 gm Q15M PRN BUCCAL DECREASED GLUCOSE; Start 05/07/18 at 01:00 Miscellaneous Information Patients own medicat... BID@10,16 XX ; Start 05/07/18 at 10:00 Aspirin (Halfprin) 81 mg DAILY PO Last administered on 05/09/18at 09:26; Admin Dose 81 MG; Start 05/08/18 at 09:00 Atorvastatin Calcium (Lipitor) 40 mg QHS PO Last administered on 05/08/18at 21:08; Admin Dose 40 MG; Start 05/07/18 at 21:00 Carvedilol (Coreg) 6.25 mg BID PO Last administered on 05/09/18at 09:27; Admin Dose 6.25 MG; Start 05/07/18 at 21:00 Clopidogrel Bisulfate (plaVIX) 75 mg DAILY PO Last administered on 05/09/18at 09:26; Admin Dose 75 MG; Start 05/08/18 at 09:00 Hydralazine HCl (Apresoline) 50 mg BID PO Last administered on 05/09/18 09:25; Admin Dose 50 MG; Start 05/07/18 at 21:00 Isosorbide Mononitrate (Imdur) 30 mg DAILY PO Last administered on 05/09/18at 0 9:26; Admin Dose 30 MG; Start 05/08/18 at 09:00 Pantoprazole (Protonix Tab) 40 mg DAILY@06 PO Last administered on 05/09/18 05:39; Admin Dose 40 MG; Start 05/08/18 at 06:00 Fish Oil (Fish Oil) 2,000 mg BID PO Last administered on 05/09/18 09:26; Admin Dose 2,000 MG; Start 05/07/18 at 11:00 Nifedipine (Procardia Xl) 60 mg DAILY PO Last administered on 05/09/18 09:27; Admin Dose 60 MG; Start 05/08/18 at 09:00 Miscellaneous Information (*Order Clarification Bulletin) VICTOZA IS NON FORMULARY--PLEASE CONSIDER... Q8H XX ; Start 05/07/18 at 11:00 Febuxostat (Uloric) 80 mg DAILY PO Last administered on 05/09/18 09:26; Admin Dose 80 MG; Start 05/08/18 at 09:00 Lactobacillus Acidophilus/ Rhamnosus (Culturelle) 1 cap BID PO Last administered on 05/09/18at 10:07; Admin Dose 1 CAP; Start 05/08/18 at 21:00 Furosemide (Lasix) 40 mg DAILY PO ; Start 05/10/18 at 09:00 Agustin Traylor DO May 09, 2018 16:42
[2018-05-09] MEDS: ATORVASTATIN 40 MG TAB PO SCH (21:00)
[2018-05-09] MEDS: INSULIN GLARGINE [LANTus] (100 UNITS/ML) SYG SC SCH (21:26)
[2018-05-10] VITALS (10 sets, daily range): BP systolic 116–152; BP diastolic 63–71; PULSE 67–152; RESP 18–20
[2018-05-10] MEDS: ACCU-CHEK XX SCH (01:24)
[2018-05-10] MEDS: [UNRECOGNIZED DRUG - OTHER] XX SCH ×3 (03:00→19:00)
[2018-05-10] MEDS: PANTOPRAZOLE (EC) 40 MG TAB PO SCH (06:03)
[2018-05-10] MEDS: INSULIN ASPART [NOVOLOG] 3 ML PEN SC SCH ×4 (07:59→20:24)
[2018-05-10] MEDS ORDERED: POTASSIUM CHLORIDE (SR) 20 MEQ TAB PO STA (08:54)
[2018-05-10] MEDS ORDERED: FUROSEMIDE 40 MG TAB PO SCH (09:00)
--- NOTE | 2018-05-10 09:08 | PN ---
DATE: 05/10/2018 SUBJECTIVE: The patient is clinically improving. No events overnight. OBJECTIVE: VITAL SIGNS: Blood pressure is 139/66, pulse 68, respiration 18, temperature 98.9. HEENT: Head is normocephalic. NECK: Supple. HEART: Regular rate. LUNGS: Show diminished breath sounds at the base. ABDOMEN: Soft, nontender to palpation without rebound or guarding. EXTREMITIES: Negative for clubbing, cyanosis, no edema. DERMATOLOGIC: No rashes. MUSCULOSKELETAL: No joint effusion. NEUROLOGIC: No change in exam. MEDICATIONS: Reviewed. LABORATORY DATA: Has been reviewed. The patient has potassium 3.3, BUN 74, creatinine 3.18. White count 8.1, hemoglobin 10.0, platelet count is 231. ASSESSMENT AND PLAN: 1. Nonoliguric acute kidney injury on top of chronic kidney disease with previous baseline creatinin e of 2.5 to 3.0 mg/dL. Etiology of acute kidney injury is secondary to hemodynamics, diuretic therap y. The patient's creatinine has continued to decline. Plan is to hold diuretic therapy to enable fl uid to mobilize. Otherwise, continue current treatment plan, supportive care, renally dose all meds. 2. Hypokalemia. Will replete with potassium chloride. 3. Anemia. Monitor hemoglobin and hematocrit levels. 4. Mineral bone disorder. Monitor calcium and phosphorus levels. 5. Diabetes. Continue current insulin regimen. 6. Acute respiratory failure secondary to congestive heart failure. The patient appears euvolemic. Will hold diuretic therapy due to worsening renal function. 7. Arrhythmia. Continue to monitor. Follow up with cardiology. 8. Hypertension. Continue current blood pressure regimen. Medications have been adjusted as needed . 9. History of coronary artery disease. 10. Dyslipidemia. Continue statin therapy. 11. Cardiomyopathy. Dictated By: CHRISTOPHER MARIO DO NR/NTS Conf#: [id number] DID#: [id number] CC: DAREN HOLLAND MD;*EndCC*
[2018-05-10] MEDS: FEBUXOSTAT 40 MG TABLET PO SCH (09:20)
[2018-05-10] MEDS: CLOPIDOGREL 75 MG TAB PO SCH (09:20)
[2018-05-10] MEDS: ASPIRIN (EC) 81 MG TAB PO SCH (09:21)
[2018-05-10] MEDS: LACTOBACILLUS RHAMNOSUS CAP PO SCH ×2 (09:21→20:11)
[2018-05-10] MEDS: FISH OIL 1,000 MG CAP PO SCH ×2 (09:21→20:11)
[2018-05-10] MEDS: ISOSORBIDE MONONITRATE(SR)30 MG TAB PO SCH (09:22)
[2018-05-10] MEDS: NIFEdipine (XL) 60 MG TAB PO SCH (09:23)
[2018-05-10] MEDS: ENOXAPARIN 30 MG/0.3 ML SYG SC SCH (09:24)
--- NOTE | 2018-05-10 10:37 | PN ---
Date/Time of Note Date/Time of Note DATE: 05/10/18 TIME: 10:35 Assessment/Plan VTE Prophylaxis Risk score (from Ns)>0 risk: 5 SCD applied (from Ns): No SCD contraindicated: low risk/ambulating Pharmacological prophylaxis: LMWH Lines/Catheters IV [facility]ter [facility]from [facility] Saline Lock Urinary Cath still in place: No Assessment/Plan Hospital Course Assessment and plan 1. Chest pain dyspnea, due to decompensated systolic CHF, stable, adjust diuretics 2. Chronic systolic CHF, continue medical management. 3. Ho nsvt. LifeVest was obtained on discharge last time. Presently not being used, he keeps it in his closet. no arrhythmias. 4. History of nonadherence will be difficult to manage, recommend palliative hospice of which he has refused in the past. 5. BBB chronic stable observe 6. Type 2 diabetes 7. Essential hypertension 8. Chronic GERD 9. Coronary artery disease? 10. Anemia likely of chronic disease 11. History of gout 12. Failure to thrive. Refused Hospice and Snf on last discharge. 13. Chronic kidney disease baseline around 2.5. Will hold today's diabetic S: 05/08 cough white expectoration no hemoptysis or chest pain or fever. 05/09 ambulated with PT no arrhythmias no distress. 05/10: No distress cough fever. Possibly constipated. No BM for 3 days. O: Bundle branch block but rate controlled Physical exam No pallor/ JVD Regular no murmur gallop Diminished no tachypnea at rest Bowel sounds present nontender nondistended no RRG No edema/Homans Result Diagram: 05/10/18 0501 05/10/18 0501 Results 24hrs Laboratory Tests Test 05/09/18 12:28 05/09/18 17:39 05/09/18 20:58 05/10/18 01:17 Bedside Glucose 136 199 215 112 Test 05/10/18 05:01 05/10/18 07:42 White Blood Count 8.1 Red Blood Count 3.67 L Hemoglobin 10.0 L Hematocrit 30.9 L Mean Corpuscular 84.2 Volume Mean Corpuscular 27.2 L Hemoglobin Mean Corpuscular 32.4 Hemoglobin Concent Red Cell 14.3 Distribution Width Platelet Count 231 Mean Platelet Volume 10.2 Immature 0.200 Granulocytes % Neutrophils % 76.3 Lymphocytes % 6.3 L Monocytes % 14.0 H Eosinophils % 2.7 Basophils % 0.5 Nucleated Red Blood 0.0 Cells % Immature 0.020 Granulocytes # Neutrophils # 6.2 Lymphocytes # 0.5 L Monocytes # 1.1 H Eosinophils # 0.2 Basophils # 0.0 Nucleated Red Blood 0.0 Cells # Sodium Level 140 Potassium Level 3.3 L Chloride Level 100 Carbon Dioxide Level 25 Anion Gap 15 H Blood Urea Nitrogen 74 H Creatinine 3.18 H Est Glomerular Filtrat Rate mL/min Glucose Level 128 Calcium Level 8.9 Phosphorus Level 4.1 Magnesium Level 2.0 Bedside Glucose 219 Exam/Review of Systems Exam Vitals Vital Signs Date Temp Pulse Resp B/P (MAP) Pulse Ox O2 O2 Flow FiO2 Time Delivery Rate 05/10/18 98.9 68 18 139/66 97 Room Air 08:09 (90) 05/07/18 2.0 19:15 05/06/18 28 23:30 Intake and Output 05/09/18 05/09/18 05/10/18 1414:59 22:59 06:59 IntakeIntake Total 650 ml 350 ml OutputOutput Total 950 ml 650 ml BalanceBalance -300 ml -300 ml Results Results 24hrs Laboratory Tests Test 05/09/18 12:28 05/09/18 17:39 05/09/18 20:58 05/10/18 01:17 Bedside Glucose 136 199 215 112 Test 05/10/18 05:01 05/10/18 07:42 White Blood Count 8.1 Red Blood Count 3.67 L Hemoglobin 10.0 L Hematocrit 30.9 L Mean Corpuscular 84.2 Volume Mean Corpuscular 27.2 L Hemoglobin Mean Corpuscular 32.4 Hemoglobin Concent Red Cell 14.3 Distribution Width Platelet Count 231 Mean Platelet Volume 10.2 Immature 0.200 Granulocytes % Neutrophils % 76.3 Lymphocytes % 6.3 L Monocytes % 14.0 H Eosinophils % 2.7 Basophils % 0.5 Nucleated Red Blood 0.0 Cells % Immature 0.020 Granulocytes # Neutrophils # 6.2 Lymphocytes # 0.5 L Monocytes # 1.1 H Eosinophils # 0.2 Basophils # 0.0 Nucleated Red Blood 0.0 Cells # Sodium Level 140 Potassium Level 3.3 L Chloride Level 100 Carbon Dioxide Level 25 Anion Gap 15 H Blood Urea Nitrogen 74 H Creatinine 3.18 H Est Glomerular Filtrat Rate mL/min Glucose Level 128 Calcium Level 8.9 Phosphorus Level 4.1 Magnesium Level 2.0 Bedside Glucose 219 Medications Medication Current Medications IV Flush (NS 3 ml) 3 ml PER PROTOCOL IV ; Start 05/07/18 at 00:30 Ondansetron HCl (Zofran Inj) 4 mg Q6H PRN IV NAUSEA/VOMITING; Start 05/07/18 at 00:30 Acetaminophen (Tylenol Tab) 650 mg Q6H PRN PO .PAIN 1-3 OR TEMP Last administered on 05/09/18 14:07; Admin Dose 650 MG; Start 05/07/18 at 00:30 Docusate Sodium (Colace) 100 mg Q12H PRN PO .CONSTIPATION Last administered on 05/07/18 18:36; Admin Dose 100 MG; Start 05/07/18 at 00:30 Bisacodyl (Dulcolax) 5 mg DAILY PRN PO .CONSTIPATION Last administered on 05/07/18 21:16; Admin Dose 5 MG; Start 05/07/18 at 00:30 Enoxaparin Sodium (Lovenox) 30 mg DAILY SC Last administered on 05/10/18 09:24; Admin Dose 30 MG; Start 05/07/18 at 09:00 Insulin Glargine (Lantus) 40 units QPM SC Last administered on 05/09/18 21:26; Admin Dose 40 UNITS; Start 05/07/18 at 21:00 Miscellaneous Information 1.8 mg QAM SQ ; Start 05/07/18 at 09:00; Status UNV Diagnostic Test (Pha) (Accu-Chek) 1 ea 02 XX Last administered on 05/10/18 01:24; Admin Dose 1 EA; Start 05/07/18 at 02:00 Insulin Aspart (Novolog Insulin Pen) NOVOLOG *MILD* ALGORITHM WITH MEALS BEDTIME SC Last administered on 05/10/18 07:59; Admin Dose 2 UNIT; Start 05/07/18 at 08:00 Miscellaneous Information 1 ea NOTE XX ; Start 05/07/18 at 01:00 Glucose (Glutose) 15 gm Q15M PRN PO DECREASED GLUCOSE; Start 05/07/18 at 01:00 Glucose (Glutose) 22.5 gm Q15M PRN PO DECREASED GLUCOSE; Start 05/07/18 at 01:00 Dextrose (D50w Syringe) 25 ml Q15M PRN IV DECREASED GLUCOSE; Start 05/07/18 at 01:00 Dextrose (D50w Syringe) 50 ml Q15M PRN IV DECREASED GLUCOSE; Start 05/07/18 at 01:00 Glucagon (Glucagen) 1 mg Q15M PRN IM DECREASED GLUCOSE; Start 05/07/18 at 01:00 Glucose (Glutose) 15 gm Q15M PRN BUCCAL DECREASED GLUCOSE; Start 05/07/18 at 01:00 Miscellaneous Information Patients own medicat... BID@10,16 XX ; Start 05/07/18 at 10:00 Aspirin (Halfprin) 81 mg DAILY PO Last administered on 05/10/18 09:21; Admin Dose 81 MG; Start 05/08/18 at 09:00 Atorvastatin Calcium (Lipitor) 40 mg QHS PO Last administered on 05/09/18 21:00; Admin Dose 40 MG; Start 05/07/18 at 21:00 Carvedilol (Coreg) 6.25 mg BID PO Last administered on 05/10/18 09:22; Admin Dose 6.25 MG; Start 05/07/18 at 21:00 Clopidogrel Bisulfate (plaVIX) 75 mg DAILY PO Last administered on 05/10/18 09:20; Admin Dose 75 MG; Start 05/08/18 at 09:00 Hydralazine HCl (Apresoline) 50 mg BID PO Last administered on 05/10/18 09:22; Admin Dose 50 MG; Start 05/07/18 at 21:00 Isosorbide Mononitrate (Imdur) 30 mg DAILY PO Last administered on 05/10/18 09:22; Admin Dose 30 MG; Start 05/08/18 at 09:00 Pantoprazole (Protonix Tab) 40 mg DAILY@06 PO Last administered on 05/10/18 06:03; Admin Dose 40 MG; Start 05/08/18 at 06:00 Fish Oil (Fish Oil) 2,000 mg BID PO Last administered on 05/10/18 09:21; Admin Dose 2,000 MG; Start 05/07/18 at 11:00 Nifedipine (Procardia Xl) 60 mg DAILY PO Last administered on 05/10/18 09:23; Admin Dose 60 MG; Start 05/08/18 at 09:00 Miscellaneous Information (*Order Clarification Bulletin) VICTOZA IS NON FORMULARY--PLEASE CONSIDER... Q8H XX ; Start 05/07/18 at 11:00 Febuxostat (Uloric) 80 mg DAILY PO Last administered on 05/10/18at 09:20; Admin Dose 80 MG; Start 05/08/18 at 09:00 Lactobacillus Acidophilus/ Rhamnosus (Culturelle) 1 cap BID PO Last administered on 05/10/18at 09:21; Admin Dose 1 CAP; Start 05/08/18 at 21:00 CHUY HORTON MD May 10, 2018 10:37
[2018-05-10] MEDS ORDERED: BISACODYL (EC) 5 MG TAB PO ONE (11:00)
[2018-05-10] MEDS: POLYETHYLENE GLYCOL 17 GM PACKET PO SCH ×2 (11:57→20:13)
--- NOTE | 2018-05-10 14:15 | CONS ---
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 Serial cardiac enzymes are negative. ECG baseline left bundle -Diuretic titration as per nephrology -Continue beta-abraham, not on LOLY inhibitor secondary to abnormal renal function -Upon discharge, would recommend continue adherence with LifeVest and plan for outpatient electrophysiology evaluation for biventricular pacemaker/ICD -DC planning Consultation Date/Type/Reason Admit Date/Time May 07, 2018 at 00:07 Initial Consult Date Type of Consult Cardiology Date/Time of Note DATE: 05/10/18 TIME: 14:14 24 HR Interval Summary Free Text/Dictation Denies shortness of breath currently. Overall feeling better. Denies chest pain or dizziness Exam/Review of Systems Vital Signs Vitals Vital Signs Date Temp Pulse Resp B/P (MAP) Pulse Ox O2 O2 Flow FiO2 Time Delivery Rate 05/10/18 69 12:00 05/10/18 97.3 20 152/63 94 Room Air 11:53 (92) 05/07/18 2.0 19:15 05/06/18 28 23:30 Intake and Output 05/09/18 05/09/18 05/10/18 1515:00 23:00 07:00 IntakeIntake Total 650 ml 350 ml OutputOutput Total 950 ml 650 ml BalanceBalance -300 ml -300 ml Exam Constitutional: alert, oriented (No apparent distress) Head: normocephalic Respiratory: other (Coarse breath sounds bilaterally, no wheezing) Cardiovascular: regular rate and rhythm (S1-S2 heard) Gastrointestinal: soft, non-tender, bowel sounds Extremities: other (No significant edema) Labs Result Diagram: 05/10/18 0501 05/10/18 0501 Results 24hrs Laboratory Tests Test 05/09/18 17:39 05/09/18 20:58 05/10/18 01:17 05/10/18 05:01 Bedside Glucose 199 215 112 White Blood Count 8.1 Red Blood Count 3.67 L Hemoglobin 10.0 L Hematocrit 30.9 L Mean Corpuscular 84.2 Volume Mean Corpuscular 27.2 L Hemoglobin Mean Corpuscular 32.4 Hemoglobin Concent Red Cell 14.3 Distribution Width Platelet Count 231 Mean Platelet Volume 10.2 Immature 0.200 Granulocytes % Neutrophils % 76.3 Lymphocytes % 6.3 L Monocytes % 14.0 H Eosinophils % 2.7 Basophils % 0.5 Nucleated Red Blood 0.0 Cells % Immature 0.020 Granulocytes # Neutrophils # 6.2 Lymphocytes # 0.5 L Monocytes # 1.1 H Eosinophils # 0.2 Basophils # 0.0 Nucleated Red Blood 0.0 Cells # Sodium Level 140 Potassium Level 3.3 L Chloride Level 100 Carbon Dioxide Level 25 Anion Gap 15 H Blood Urea Nitrogen 74 H Creatinine 3.18 H Est Glomerular Filtrat Rate mL/min Glucose Level 128 Calcium Level 8.9 Phosphorus Level 4.1 Magnesium Level 2.0 Test 05/10/18 07:42 05/10/18 11:37 Bedside Glucose 219 240 H Medications Medications Current Medications IV Flush (NS 3 ml) 3 ml PER PROTOCOL IV ; Start 05/07/18 at 00:30 Ondansetron HCl (Zofran Inj) 4 mg Q6H PRN IV NAUSEA/VOMITING; Start 05/07/18 at 00:30 Acetaminophen (Tylenol Tab) 650 mg Q6H PRN PO .PAIN 1-3 OR TEMP Last administered on 05/09/18 14:07; Admin Dose 650 MG; Start 05/07/18 at 00:30 Docusate Sodium (Colace) 100 mg Q12H PRN PO .CONSTIPATION Last administered on 05/07/18 18:36; Admin Dose 100 MG; Start 05/07/18 at 00:30 Bisacodyl (Dulcolax) 5 mg DAILY PRN PO .CONSTIPATION Last administered on 21:16; Admin Dose 5 MG; Start 05/07/18 at 00:30 Enoxaparin Sodium (Lovenox) 30 mg DAILY SC Last administered on 05/10/18 09:24; Admin Dose 30 MG; Start 05/07/18 at 09:00 Insulin Glargine (Lantus) 40 units QPM SC Last administered on 05/09/18 21:26; Admin Dose 40 UNITS; Start 05/07/18 at 21:00 Miscellaneous Information 1.8 mg QAM SQ ; Start 05/07/18 at 09:00; Status UNV Diagnostic Test (Pha) (Accu-Chek) 1 ea 02 XX Last administered on 05/10/18at 01:24; Admin Dose 1 EA; Start 05/07/18 at 02:00 Insulin Aspart (Novolog Insulin Pen) NOVOLOG *MILD* ALGORITHM WITH MEALS BEDTIME SC Last administered on 05/10/18at 12:00; Admin Dose 3 UNIT; Start 05/07/18 at 08:00 Miscellaneous Information 1 ea NOTE XX ; Start 05/07/18 at 01:00 Glucose (Glutose) 15 gm Q15M PRN PO DECREASED GLUCOSE; Start 05/07/18 at 01:00 Glucose (Glutose) 22.5 gm Q15M PRN PO DECREASED GLUCOSE; Start 05/07/18 at 0 1:00 Dextrose (D50w Syringe) 25 ml Q15M PRN IV DECREASED GLUCOSE; Start 05/07/18 at 01:00 Dextrose (D50w Syringe) 50 ml Q15M PRN IV DECREASED GLUCOSE; Start 05/07/18 at 01:00 Glucagon (Glucagen) 1 mg Q15M PRN IM DECREASED GLUCOSE; Start 05/07/18 at 01:00 Glucose (Glutose) 15 gm Q15M PRN BUCCAL DECREASED GLUCOSE; Start 05/07/18 at 01:00 Miscellaneous Information Patients own medicat... BID@10,16 XX ; Start 05/07/18 at 10:00 Aspirin (Halfprin) 81 mg DAILY PO Last administered on 05/10/18at 09:21; Admin Dose 81 MG; Start 05/08/18 at 09:00 Atorvastatin Calcium (Lipitor) 40 mg QHS PO Last administered on 05/09/18at 21:00; Admin Dose 40 MG; Start 05/07/18 at 21:00 Carvedilol (Coreg) 6.25 mg BID PO Last administered on 05/10/18 09:22; Admin Dose 6.25 MG; Start 05/07/18 at 21:00 Clopidogrel Bisulfate (plaVIX) 75 mg DAILY PO Last administered on 05/10/18 09:20; Admin Dose 75 MG; Start 05/08/18 at 09:00 Hydralazine HCl (Apresoline) 50 mg BID PO Last administered on 05/10/18 09:22; Admin Dose 50 MG; Start 05/07/18 at 21:00 Isosorbide Mononitrate (Imdur) 30 mg DAILY PO Last administered on 05/10/18 09:22; Admin Dose 30 MG; Start 05/08/18 at 09:00 Pantoprazole (Protonix Tab) 40 mg DAILY@06 PO Last administered on 05/10/18 06:03; Admin Dose 40 MG; Start 05/08/18 at 06:00 Fish Oil (Fish Oil) 2,000 mg BID PO Last administered on 05/10/18 09:21; Admin Dose 2,000 MG; Start 05/07/18 at 11:00 Nifedipine (Procardia Xl) 60 mg DAILY PO Last administered on 05/10/18 09:23; Admin Dose 60 MG; Start 05/08/18 at 09:00 Miscellaneous Information (*Order Clarification Bulletin) VICTOZA IS NON FORMULARY--PLEASE CONSIDER... Q8H XX ; Start 05/07/18 at 11:00 Febuxostat (Uloric) 80 mg DAILY PO Last administered on 05/10/18 09:20; Admin Dose 80 MG; Start 05/08/18 at 09:00 Lactobacillus Acidophilus/ Rhamnosus (Culturelle) 1 cap BID PO Last administered on 05/10/18 09:21; Admin Dose 1 CAP; Start 05/08/18 at 21:00 Potassium Chloride (Potassium Chloride Pwd/Soln) 20 meq DAILY PO ; Start 05/11/18 at 09:00 Polyethylene Glycol (Miralax) 17 gm BID PO Last administered on 05/10/18 11:5 7; Admin Dose 17 GM; Start 05/10/18 at 11:00 Agustin Traylor DO May 10, 2018 14:15
[2018-05-10] MEDS: ACETAMINOPHEN 325 MG TAB PO PRN (16:12)
[2018-05-10] MEDS: ATORVASTATIN 40 MG TAB PO SCH (20:11)
[2018-05-10] MEDS: INSULIN GLARGINE [LANTus] (100 UNITS/ML) SYG SC SCH (20:24)
[2018-05-11] VITALS (7 sets, daily range): BP systolic 121–134; BP diastolic 59–66; PULSE 72–86; RESP 18–22
[2018-05-11] MEDS: ACCU-CHEK XX SCH (01:54)
[2018-05-11] MEDS: [UNRECOGNIZED DRUG - OTHER] XX SCH ×2 (03:00→11:00)
[2018-05-11] MEDS: PANTOPRAZOLE (EC) 40 MG TAB PO SCH (05:57)
[2018-05-11] MEDS: INSULIN ASPART [NOVOLOG] 3 ML PEN SC SCH ×2 (07:51→12:22)
[2018-05-11] MEDS ORDERED: POTASSIUM CHLORIDE 20 MEQ POWDER FOR ORAL SOLN PO SCH (09:00)
[2018-05-11] MEDS: CLOPIDOGREL 75 MG TAB PO SCH (09:09)
[2018-05-11] MEDS: FEBUXOSTAT 40 MG TABLET PO SCH (09:09)
[2018-05-11] MEDS: LACTOBACILLUS RHAMNOSUS CAP PO SCH (09:10)
[2018-05-11] MEDS: ISOSORBIDE MONONITRATE(SR)30 MG TAB PO SCH (09:10)
[2018-05-11] MEDS: ASPIRIN (EC) 81 MG TAB PO SCH (09:10)
[2018-05-11] MEDS: FISH OIL 1,000 MG CAP PO SCH (09:10)
[2018-05-11] MEDS: NIFEdipine (XL) 60 MG TAB PO SCH (09:11)
[2018-05-11] MEDS: POLYETHYLENE GLYCOL 17 GM PACKET PO SCH (09:11)
[2018-05-11] MEDS: ENOXAPARIN 30 MG/0.3 ML SYG SC SCH (09:21)
--- NOTE | 2018-05-11 09:23 | PN ---
DATE: 05/11/2018 SUBJECTIVE: The patient is clinically improving. No fevers. No shortness of breath. OBJECTIVE: VITAL SIGNS: Blood pressure is 122/63, pulse 86, respirations 22, temperature 98.4. HEENT: Head is normocephalic. NECK: Supple. HEART: Regular rate. LUNGS: Show diminished breath sounds at the base. ABDOMEN: Soft, nontender to palpation without rebound or guarding. EXTREMITIES: Negative for clubbing, cyanosis, no edema. DERMATOLOGIC: No rashes. MUSCULOSKELETAL: No joint effusion. NEUROLOGIC: No change in exam. MEDICATIONS: Reviewed. LABORATORY DATA: From 05/11/2018 was reviewed. ASSESSMENT AND PLAN: 1. Nonoliguric acute kidney injury on top of chronic kidney disease with previous baseline creatinin e of 2.5 to 3 mg/dL. Etiology of acute kidney injury is secondary to hemodynamics, diuretics. The p atient's renal function has improved after holding diuretic therapy. 2. Plan is to restart patient on low-dose Lasix, continue to monitor I's and O's closely. 3. Hypokalemia. Continue to monitor and replete as needed. 4. Anemia. Continue to monitor hemoglobin and hematocrit levels. 5. Mineral bone disorder, monitor calcium and phosphorus level. 6. Diabetes. Continue current insulin regimen. 5. Acute respiratory failure secondary to congestive heart failure. The patient appears euvolemic. We will start the patient on low-dose Lasix to maintain euvolemia. 6. Arrhythmia. The patient refused LifeVest previously. Continue to monitor. Follow up with Cardi ology. 7. Hypertension. Continue current blood pressure regimen. 8. History of coronary artery disease. 9. Dyslipidemia. 10. Cardiomyopathy. Dictated By: CHRISTOPHER MARIO DO NR/NTS Conf#: [id number] DID#: [id number] CC: CHUY HORTON MD; DAREN HOLLAND MD;*End*
--- NOTE | 2018-05-11 10:20 | PDOCDIS ---
Discharge Instructions CONDITION [id number] Patient Condition: [id number] Stable HOME CARE INSTRUCTIONS: [id number] Diet Instructions: [id number] Low Fat /Cholesterol (low salt) ACTIVITY: [id number] Activity Restrictions: [id number] Slowly Increase Activity Do not Drive FOLLOW UP/APPOINTMENTS Follow-up Plan appt Primary & Cardiology 1wk Nephrology 2wks CHUY HORTON MD May 11, 2018 10:20
[2018-05-11] MEDS ORDERED: ACET325T33 PO (10:23)
[2018-05-11] MEDS ORDERED: FAMO20TA18 PO (10:24)
[2018-05-11] MEDS ORDERED: FURO40TA4 PO (10:24)
[2018-05-11] MEDS ORDERED: LACT1CAP28 PO (10:24)
--- NOTE | 2018-05-11 13:05 | DS ---
Date/Time of Note Date/Time of Note DATE: 05/11/18 TIME: 13:01 Discharge Summary Admission/Discharge Info Admit Date/Time May 07, 2018 at 00:07 Discharge Date/Time Patient Condition: Stable Consults Dr Sara Traylor Procedures X-rays/ labs Creatinine 2.9 Hx of Present Illness Admitted with atypical chest pain dyspnea Hospital Course hospitalist coverage/hospital course Admitted and evaluated for atypical chest pain dyspnea. Rule out for ACS by enzymes EKG symptoms. Seen by cardiology. The issue is his decompensated CHF. She is not adherent to therapy. Management and definitely stability are a challenge. At this point we diurese the patient as much as possible. He stable and fit for discharge to follow-up with primary, cardiology, nephrology. Patient additionally has refused to use his LifeVest. Prognosis guarded. Recommend he consider hospice again. Last time he did not qualify for hospice a s he planned on using a LifeVest. At this point if he does not use the LifeVest, his prognosis is much more guarded and I would recommend hospice to avoid any discomfort. 1. Chest pain dyspnea, due to decompensated systolic CHF, stable, adjusted diuretics 2. Chronic systolic CHF, continue medical management. 3. Ho nsvt. LifeVest was obtained on discharge last time. Presently not being used, he keeps it in his closet. no arrhythmias. 4. History of nonadherence will be difficult to manage, recommend palliative hospice of which he has refused in the past. 5. BBB chronic stable observe 6. Type 2 diabetes 7. Essential hypertension 8. Chronic GERD 9. Coronary artery disease? 10. Anemia likely of chronic disease 11. History of gout 12. Failure to thrive. Refused Hospice and Sn[facility] on last discharge. 13. Chronic kidney disease baseline around 2.5. today 2.9 stable S: 05/08 cough white expectoration no hemoptysis or chest pain or fever. 05/09 ambulated with PT no arrhythmias no distress. 05/10: No distress cough fever. Possibly constipated. No BM for 3 days. 05/11: no events O: Bundle branch block but rate controlled Physical exam No pallor/ JVD Regular no m/r/g Diminished no tachypnea at rest Bs+nt nd no RRG No edema/[facility] Home Meds Active Scripts Famotidine* (Famotidine*) 20 Mg Tablet, 20 MG PO DAILY, #15 TAB otc Prov:CHUY HORTON MD 05/11/18 Lactobacillus Rhamnosus GG (Culturelle) 1 Each Capsule, 1 CAP PO BID for 10 Days, #20 CAP Prov:CHUY HORTON MD 05/11/18 Furosemide* (Furosemide*) 40 Mg Tablet, 40 MG PO DAILY for 14 Days, #14 TAB Prov:CHUY HORTON MD 05/11/18 Acetaminophen* (Tylenol*) 325 Mg Tablet, 650 MG PO Q6H PRN for .PAIN 1-3 OR TEMP for 1 Day, #1 TAB Prov:CHUY HORTON MD 05/11/18 Thiamine* (Thiamine*) 100 Mg Tablet, 100 MG PO DAILY for 30 Days, #30 TAB Prov:CHUY HORTON MD 04/01/18 Polyethylene Glycol* (Miralax*) 17 Gm Powd.pack, 17 GM PO BID for 5 Days otc Prov:CHUY HORTON MD 04/01/18 [NIFEdipine (XL)] 60 MG TABSR No Conflict Check, 60 MG PO DAILY for 10 Days, #10 Prov:CHUY HORTON MD 04/01/18 Carvedilol* (Carvedilol*) 6.25 Mg Tablet, 6.25 MG PO BID for 10 Days, #20 TAB Prov:CHUY HORTON MD 04/01/18 [place]-3/Dha/Epa/Fish Oil (FISH OIL EC 1,000 MG SOFTGEL) 1 Each Capsule.dr, 2000 MG PO BID, #30 CAP Prov:JAD SHIN 03/03/17 Clopidogrel Bisulfate (Clopidogrel) 75 Mg Tablet, 75 MG PO DAILY, #30 TAB Prov:JAD SHIN 03/03/17 Reported Medications Isosorbide Mononitrate* (Isosorbide Mononitrate*) 30 Mg Tab.er.24h, 30 MG PO DAILY, TAB 03/20/18 Clopidogrel Bisulfate (Clopidogrel) 75 Mg Tablet, 75 MG PO DAILY, #30 TAB 03/20/18 Febuxostat* (Uloric*) 80 Mg Tablet, 80 MG PO DAILY, TAB 03/20/18 Hydralazine Hcl* (Hydralazine Hcl*) 50 Mg Tab, 50 MG PO BID, #120 TAB 03/04/18 Aspirin* (Aspirin* EC) 81 Mg Tablet.dr, 81 MG PO DAILY, TAB 03/04/18 Liraglutide (Victoza 3-Donnie) 0.6 Mg/0.1 Ml Pen.injctr, 1.8 MG SQ QAM, SYR 03/04/18 Insulin Glargine,Hum.rec.anlog (Chhaya Meccaviviane) 300 Unit/1 Ml Insuln.pen, 40 UNIT SQ QPM, EA 03/04/18 Atorvastatin* (Atorvastatin*) 40 Mg Tablet, 40 MG PO QHS, #30 TAB 03/04/18 Discontinued Scripts Bumetanide* (Bumetanide*) 1 Mg Tablet, 1 MG PO DAILY for 15 Days, #15 TAB Prov:CHUY HORTON MD 04/01/18 Pantoprazole* (Pantoprazole*) 40 Mg Tablet., 40 MG PO DAILY@06 for 10 Days, #20 Prov:CHUY HORTON MD 04/01/18 Follow-up Plan appt Primary & Cardiology 1wk Nephrology 2wks Primary Care Provider Not On Staff Doctor Time spent on discharge: > 30 minutes Pending Labs Laboratory Tests Test 05/10/18 17:42 05/10/18 20:15 05/11/18 01:51 05/11/18 04:24 Bedside 182 212 126 Glucose mg/dL (70-220) mg/dL (70-220) mg/dL (70-220) White Blood 8.1 Count 10^3/ul (4.8-1 0.8) Red Blood 3.41 Count 10^6/ul (4.70- 6.10) Hemoglobin 9.4 g/dl (14.0-18. 0) Hematocrit 28.6 % (42.0-52.0) Mean 83.9 Corpuscular fl (82.0-101.0 Volume ) Mean 27.6 Corpuscular pg (29.0-33.0) Hemoglobin Mean 32.9 Corpuscular g/dl (32.0-37. Hemoglobin Conc 0) ent Red Cell 14.4 Distribution % (11.5-14.5) Width Platelet Count 233 10^3/UL (140-4 15) Mean Platelet 10.7 Volume fl (7.4-10.4) Immature 0.400 Granulocytes % % (0.001-0.429 ) Neutrophils % 70.1 % (39.0-77.0) Lymphocytes % 9.7 % (15.0-51.0) Monocytes % 15.4 % (0.0-11.0) Eosinophils % 3.8 % (0.0-7.0) Basophils % 0.6 % (0.0-2.0) Nucleated Red 0.0 Blood Cells % /100WBC (0.0-0 .0) Immature 0.030 Granulocytes # 10^3/ul (0.0-0 .031) Neutrophils # 5.7 10^3/ul (1.6-7 .5) Lymphocytes # 0.8 10^3/ul (0.8-2 .9) Monocytes # 1.2 10^3/ul (0.3-0 .9) Eosinophils # 0.3 10^3/ul (0.0-0 .5) Basophils # 0.1 10^3/ul (0.0-0 .1) Nucleated Red 0.0 Blood Cells # 10^3/ul (0.0-0 .0) Sodium Level 141 mmol/L (135-14 4) Potassium 3.9 Level mmol/L (3.5-5. 1) Chloride Level 101 mmol/L (97-110 ) Carbon Dioxide 27 Level mmol/L (21-31) Anion Gap 13 (5-13) Blood Urea 71 Nitrogen mg/dl (7-20) Creatinine 2.96 mg/dl (0.61-1. 24) Est Glomerular mL/min (>60) Filtrat Rate mL/min Glucose Level 81 mg/dl (70-220) Calcium Level 8.9 mg/dl (8.4-10. 2) Phosphorus 3.3 Level mg/dl (2.5-4.9 ) Magnesium 2.1 Level mg/dl (1.7-2.5 ) Test 05/11/18 07:50 05/11/18 11:48 Bedside 109 175 Glucose mg/dL (70-220) mg/dL (70-220) CHUY HORTON MD May 11, 2018 13:05
[2018-05-12] MEDS ORDERED: FUROSEMIDE 40 MG TAB PO SCH (09:00)
== END 2018-05-11 16:18 | disposition home health service (06) | DRG 291 ==
LOC: E/R 21:20 → 6WM 05-07 00:07
PROVIDERS: ADMIT Family Medicine; ATTEND Internal Medicine
DX: I13.0 Hypertensive heart and chronic kidney disease with heart failure and stage 1 through stage 4 chronic kidney disease, or unspecified chronic kidney disease (principal); I50.23 Acute on chronic systolic (congestive) heart failure; J96.00 Acute respiratory failure, unspecified whether with hypoxia or hypercapnia; N18.4 Chronic kidney disease, stage 4 (severe); N17.9 Acute kidney failure, unspecified; E11.22 Type 2 diabetes mellitus with diabetic chronic kidney disease; I16.0 Hypertensive urgency; I42.9 Cardiomyopathy, unspecified; K21.9 Gastro-esophageal reflux disease without esophagitis; I49.9 Cardiac arrhythmia, unspecified; I45.4 Nonspecific intraventricular block; D63.8 Anemia in other chronic diseases classified elsewhere; M10.9 Gout, unspecified
CPT/HCPCS: 36415; 71045; 80048; 80053; 81001; 81003; 82043; 82550; 82553; 82962; 83735; 83880; 84100; 84155; 84300; 84484; 85025; 93005; 94664; 96374; 97116; 97162; 97530; J0360; J1650; J1815; J1940

== ENCOUNTER 2018-06-07 16:15 | Inpatient (IN) | payer OTHER, MEDICAID ==
[~2018-06-07] VITALS: Ht 162.6 cm; Wt 75.5 kg
[~2018-06-07 16:15] MED LIST changes: +ACET325T33 PO; -BUME1TAB PO; +FAMO20TA18 PO; +FURO40TA4 PO; +LACT1CAP28 PO; -PANT40TA4 PO
[2018-06-07] MEDS ORDERED: ALBUTEROL 0.5% (NEB) 2.5 MG/0.5 ML AMP INH STA (19:27)
--- NOTE | 2018-06-07 19:31 | ERD ---
ER Documentation Chief Complaint Chief Complaint CP x 3 days; SOB; weakness; recent cough x 4 days HPI 72-year-old man complains of 4 days of clear sputum cough, mild shortness of breath, mild sharp nonradiating nonexertional chest pain. He denies fevers or chills, no travel, no sick contacts and states he has been using his furosemide and aspirin daily as prescribed. Patient denies calf or leg swelling, no vomiting or diarrhea, no headache or blurry vision. ROS All systems reviewed and are negative except as per history of present illness. Medications Home Meds Active Scripts Famotidine* (Famotidine*) 20 Mg Tablet, 20 MG PO DAILY, #15 TAB otc Prov:CHUY HORTON MD 05/11/18 Furosemide* (Furosemide*) 40 Mg Tablet, 40 MG PO DAILY for 14 Days, #14 TAB Prov:CHUY HORTON MD 05/11/18 Acetaminophen* (Tylenol*) 325 Mg Tablet, 650 MG PO Q6H PRN for .PAIN 1-3 OR TEMP for 1 Day, #1 TAB Prov:CHUY HORTON MD 05/11/18 Thiamine* (Thiamine*) 100 Mg Tablet, 100 MG PO DAILY for 30 Days, #30 TAB Prov:CHUY HORTON MD 04/01/18 Carvedilol* (Carvedilol*) 6.25 Mg Tablet, 6.25 MG PO BID for 10 Days, #20 TAB Prov:CHUY HORTON MD 04/01/18 [place]-3/Dha/Epa/Fish Oil (FISH OIL EC 1,000 MG SOFTGEL) 1 Each Capsule.dr, 2000 MG PO BID, #30 CAP Prov:JAD SHIN 03/03/17 Reported Medications Apixaban* (Eliquis*) 2.5 Mg Tablet, 2.5 MG PO BID, TAB 06/07/18 Carvedilol* (Carvedilol*) 6.25 Mg Tablet, 6.25 MG PO BID, #60 TAB 06/07/18 Hydralazine Hcl* (Hydralazine Hcl*) 100 Mg Tablet, 100 MG PO BID, #90 TAB 06/07/18 Isosorbide Mononitrate* (Isosorbide Mononitrate*) 30 Mg Tab.er.24h, 30 MG PO DAILY, TAB 03/20/18 Aspirin* (Aspirin* EC) 81 Mg Tablet.dr, 81 MG PO DAILY, TAB 03/04/18 Insulin Glargine,Hum.rec.anlog (Chhaya Wingcierraalan) 300 Unit/1 Ml Insuln.pen, 40 UNIT SQ QPM, EA 03/04/18 Atorvastatin* (Atorvastatin*) 40 Mg Tablet, 40 MG PO QHS, #30 TAB 03/04/18 Discontinued Reported Medications Clopidogrel Bisulfate (Clopidogrel) 75 Mg Tablet, 75 MG PO DAILY, #30 TAB 03/20/18 Febuxostat* (Uloric*) 80 Mg Tablet, 80 MG PO DAILY, TAB 03/20/18 Hydralazine Hcl* (Hydralazine Hcl*) 50 Mg Tab, 50 MG PO BID, #120 TAB 03/04/18 Liraglutide (Victoza 3-Donnie) 0.6 Mg/0.1 Ml Pen.injctr, 1.8 MG SQ QAM, SYR 03/04/18 Discontinued Scripts Lactobacillus Rhamnosus GG (Culturelle) 1 Each Capsule, 1 CAP PO BID for 10 Days, #20 CAP Prov:CHUY HORTON MD 05/11/18 Polyethylene Glycol* (Miralax*) 17 Gm Powd.pack, 17 GM PO BID for 5 Days otc Prov:CHUY HORTON MD 04/01/18 [NIFEdipine (XL)] 60 MG TABSR No Conflict Check, 60 MG PO DAILY for 10 Days, #10 Prov:CHUY HORTON MD 04/01/18 Clopidogrel Bisulfate (Clopidogrel) 75 Mg Tablet, 75 MG PO DAILY, #30 TAB Prov:JAD SHIN 03/03/17 Allergies Allergies: Coded Allergies: Penicillins (Unverified Allergy, Mild, 06/07/18) PMhx/Soc History of CHF, CAD, chronic GERD, hypertension, diabetes mellitus type 2, chronic bundle branch block, chronic kidney disease History of Surgery: Yes (prostate sx,cardiac stent) Anesthesia Reaction: No Hx Neurological Disorder: No Hx Respiratory Disorders: Yes Hx Cardiac Disorders: Yes (HTN, high cholesterol,CAD,CHF) Hx Psychiatric Problems: No Hx Miscellaneous Medical Probl: Yes (chronic kidney disease) Hx Alcohol Use: Yes (quit more than 20 years ago ) Hx Substance Use: No Hx Tobacco Use: No Smoking Status: Never smoker FmHx Family History: No diabetes Physical Exam Vitals Vital Signs Date Temp Pulse Resp B/P (MAP) Pulse Ox O2 O2 Flow FiO2 Time Delivery Rate 06/07/18 98.0 66 20 164/82 100 Mask 3.0 21:02 (109) 06/07/18 2.0 19:40 06/07/18 78 2 96 21 19:40 06/07/18 98.0 69 20 171/98 98 Room Air 19:25 (122) 06/07/18 98.0 75 20 139/75 96 16:30 (96) Physical Exam GENERAL: Well-developed, well-nourished, dyspneic, afebrile HEENT: Moist mucous membranes, pink conjunctiva, no cervical spine tenderness or step-off deformities NEURO: Alert and oriented 3, cranial nerves II through XII intact bilaterally, pupils equal round reactive to light, no focal deficits or facial asymmetry CARDIAC: Regular rate and rhythm, no murmurs rubs or gallops LUNGS: Crackles at the bases, no wheezing or stridor ABDOMEN: Soft nontender, no guarding, no rigidity, no rebound, no psoas sign no obturator sign. Normoactive bowel sounds SKIN: Warm and dry to touch, no abrasions, contusions, or hematomas, no lacerations, no ecchymosis, no target lesions, and without ulcers EXTREMITIES: No clubbing cyanosis, 1+ pitting edema in the lower extremities bilaterally calves are bilaterally symmetrical, no Homans sign, no popliteal cord sign. Distal pulses equal and bilateral PSYCH: Normal affect without agitation or irritability Result Diagram: 06/07/18195006/07/181950 Results 24 hrs Laboratory Tests Test 06/07/18 19:51 White Blood Count 7.1 10^3/ul Red Blood Count 3.65 10^6/ul Hemoglobin 9.9 g/dl Hematocrit 30.5 % Mean Corpuscular Volume 83.6 fl Mean Corpuscular Hemoglobin 27.1 pg Mean Corpuscular Hemoglobin Concent 32.5 g/dl Red Cell Distribution Width 14.5 % Platelet Count 274 10^3/UL Mean Platelet Volume 10.1 fl Immature Granulocytes % 0.400 % Neutrophils % 70.2 % Lymphocytes % 12.6 % Monocytes % 10.7 % Eosinophils % 5.1 % Basophils % 1.0 % Nucleated Red Blood Cells % 0.0 /100WBC Immature Granulocytes # 0.030 10^3/ul Neutrophils # 5.0 10^3/ul Lymphocytes # 0.9 10^3/ul Monocytes # 0.8 10^3/ul Eosinophils # 0.4 10^3/ul Basophils # 0.1 10^3/ul Nucleated Red Blood Cells # 0.0 10^3/ul Prothrombin Time 13.9 Sec Prothrombin Time Ratio 1.1 INR International Normalized Ratio 1.06 Activated Partial Thromboplast Time 33.2 Sec Sodium Level 138 mmol/L Potassium Level 3.8 mmol/L Chloride Level 102 mmol/L Carbon Dioxide Level 27 mmol/L Anion Gap 9 Blood Urea Nitrogen 60 mg/dl Creatinine 2.85 mg/dl Est Glomerular Filtrat Rate mL/min mL/min Glucose Level 295 mg/dl Calcium Level 9.4 mg/dl Total Bilirubin 0.6 mg/dl Direct Bilirubin 0.00 mg/dl Indirect Bilirubin 0.6 mg/dl Aspartate Amino Transf (AST/SGOT) 21 IU/L Alanine Aminotransferase (ALT/SGPT) 41 IU/L Alkaline Phosphatase 123 IU/L Troponin I 0.246 ng/ml B-Type Natriuretic Peptide 31398 PG/ML Total Protein 6.8 g/dl Albumin 3.6 g/dl Globulin 3.20 g/dl Albumin/Globulin Ratio 1.12 Lipase 53 U/L Current Medications Medications Dose Sig/Monty Start Time Status Last (Trade) Ordered Route PRN Stop Time Admin Dose Reason Admin Albuterol 10 mg ONCE STAT 06/07/18 DC 06/07/18 (Proventil INH 19:27 19:39 0.5% (Neb)) 06/07/18 19:29 Furosemide 40 mg ONCE ONCE 06/07/18 DC 06/07/18 (Lasix) IV 21:30 21:22 06/07/18 21:31 Apixaban 2.5 mg BID PO 06/08/18 DC (Eliquis) 09:00 06/08/18 09:00 Aspirin 81 mg DAILY PO 06/08/18 (Halfprin) 09:00 40 mg QHS PO 06/08/18 Atorvastatin 21:00 Calcium (Lipitor) Carvedilol 6.25 mg BID PO 06/07/18 DC (Coreg) 22:30 06/07/18 22:30 Famotidine 20 mg DAILY PO 06/08/18 (Pepcid) 09:00 Furosemide 40 mg DAILY PO 06/08/18 (Lasix) 09:00 Hydralazine 100 mg BID PO 06/08/18 DC HCl 09:00 (Apresoline) 06/08/18 09:00 Isosorbide 30 mg DAILY PO 06/08/18 Mononitrate 09:00 (Imdur) Thiamine 100 mg DAILY PO 06/08/18 HCl 09:00 (Vitamin B1) 2,000 mg BID PO 06/07/18 DC Miscellaneous 22:30 Information 06/07/18 22:30 Fish Oil 2,000 mg BID PO 06/07/18 06/07/18 (Fish Oil) 22:30 22:42 IV Flush 3 ml PER 06/07/18 (NS 3 ml) PROTOCOL IV 22:30 Ondansetron 4 mg Q6H PRN 06/07/18 HCl (Zofran IV 22:30 Inj) NAUSEA/VOMITI NG 650 mg Q6H PRN 06/07/18 Acetaminophen PO .PAIN 1-3 22:30 (Tylenol OR TEMP Tab) 1 tab Q6H PRN 06/07/18 Acetaminophen PO .MOD PAIN 22:30 / 4-6 Hydrocodone Bitart ([place] (5/325)) Morphine 2 mg Q4H PRN 06/07/18 Sulfate IV .SEVERE 22:30 (morphine) PAIN 7-10 Docusate 100 mg Q12H PRN 06/07/18 Sodium PO 22:30 (Colace) .CONSTIPATION Bisacodyl 5 mg DAILY PRN 06/07/18 (Dulcolax) PO 22:30 .CONSTIPATION Enoxaparin 90 mg DAILY SC 06/07/18 06/07/18 Sodium 22:30 22:42 (Lovenox) Discontinue ONCE ONCE 06/07/18 DC Miscellaneous current oral XX 22:30 sulfonylur... 06/07/18 22:31 Information (* Miscellaneous Pharmacy Order) Diagnostic 1 ea 02 XX 06/08/18 Test (Pha) 02:00 (Accu-Chek) ONCE ONCE 06/07/18 DC Miscellaneous HYPOGLYCEMIA XX 22:30 PROTOCOL 06/07/18 22:31 Information w... (* Miscellaneous Pharmacy Order) Insulin NOVOLOG WITH MEALS 06/08/18 Aspart *MODERATE* BEDTIME SC 08:00 (Novolog ALGORITHM Insulin Pen) Insulin NOVOLOG Q4 SC 06/08/18 Aspart *MODERATE* 01:00 (Novolog ALGORI... 06/08/18 07:59 Insulin Pen) Discontinue ONCE ONCE 06/07/18 DC Miscellaneous all previ... XX 22:30 06/07/18 22:31 Information (* Miscellaneous Pharmacy Order) 1 ea NOTE XX 06/07/18 Miscellaneous 22:30 Information Glucose 15 gm Q15M PRN 06/07/18 (Glutose) PO DECREASED 22:30 GLUCOSE Glucose 22.5 gm Q15M PRN 06/07/18 (Glutose) PO DECREASED 22:30 GLUCOSE Dextrose 25 ml Q15M PRN 06/07/18 (D50w IV DECREASED 22:30 Syringe) GLUCOSE Dextrose 50 ml Q15M PRN 06/07/18 (D50w IV DECREASED 22:30 Syringe) GLUCOSE Glucagon 1 mg Q15M PRN 06/07/18 (Glucagen) IM DECREASED 22:30 GLUCOSE Glucose 15 gm Q15M PRN 06/07/18 (Glutose) BUCCAL 22:30 DECREASED GLUCOSE 10 ml Q4H PRN 06/07/18 Guaifenesin/ PO COUGH 22:30 Dextromethorp quintero (Robitussin Dm Liquid Cup) Carvedilol 6.25 mg BID PO 06/07/18 06/07/18 (Coreg) 22:30 22:41 Hydralazine 100 mg BID PO 06/07/18 06/07/18 HCl 22:30 22:42 (Apresoline) Hydralazine 5 mg Q4H PRN 06/07/18 HCl IV ELEVATED 22:30 (Apresoline) SYSTOLIC BP Procedures/MDM IV line was established patient was placed on rn cardiac cath rhythm strip revealed a wide-complex rhythm at 70 bpm with upright P and T waves. Patient was afebrile EKG performed, read by me revealed a normal sinus rhythm at 71 bpm, left axis deviation, bundle branch block at 156 ms, no concerning ST elevations or depressions noted I administered albuterol 10 mg via nebulizer for cough 1 view chest x-ray performed, read by me reveals cardiomegaly and bilateral pulmonary vascular edema consistent with CHF Patient already used aspirin prior to arrival and is without complaints of chest pain at this time but I did order furosemide 40 mg IV for diuretic purposes. CBC reveals mild anemia, electrolytes reveal acute kidney injury with a BUN/creatinine of 60/2.9, liver function tests normal, troponin positive at 0.2, BNP elevated Critical Care: Time: 36 minutes, this was time separate from other billable procedures. Treatments/Evaluations: Close monitoring and treatment of unstable vital signs, cardiorespiratory, and neurologic status, while maintaining tight balance of fluid, respiratory, and cardiac interventions. Patient will be admitted to telemetry setting for continued medical management, cardiology consultation, and for continued diuresis Departure Diagnosis: Primary Impression: Chest pain Chest pain type: unspecified Qualified Codes: R07.9 - Chest pain, unsp ecified Additional Impressions: CHF (congestive heart failure) Heart failure type: systolic Heart failure chronicity: acute Qualified Codes: I50.21 - Acute systolic (congestive) heart failure Acute kidney injury Condition: Fair ESTRADA ERWIN MD Jun 07, 2018 19:31
[2018-06-07] MEDS ORDERED: CARV6.2579 PO (20:35)
[2018-06-07] MEDS ORDERED: APIX2.5T PO (20:35)
[2018-06-07] MEDS ORDERED: HYDR100T25 PO (20:35)
[2018-06-07] MEDS ORDERED: FUROSEMIDE 40 MG INJ IV ONE (21:30)
[2018-06-07] MEDS ORDERED: hydrALAzine 20 MG INJ IV PRN (22:30)
[2018-06-07] MEDS ORDERED: GLUCOSE GEL 15 GRAM TUBE BUCCAL PRN (22:30)
[2018-06-07] MEDS ORDERED: GLUCAGON 1 MG INJ IM PRN (22:30)
[2018-06-07] MEDS ORDERED: NON-FORMULARY/PATIENT OWN MED (Omega-3/Dha/Epa/Fish Oil (Fish Oil Ec 1,000 Mg Softgel) 2,0 PO SCH (22:30)
[2018-06-07] MEDS ORDERED: ONDANSETRON 4 MG INJ IV PRN (22:30)
[2018-06-07] MEDS ORDERED: morphine 2 MG INJ IV PRN (22:30)
[2018-06-07] MEDS ORDERED: DEXTROSE 50% 50 ML SYRINGE IV PRN ×2 (22:30)
[2018-06-07] MEDS ORDERED: ACETAMINOPHEN 325 MG TAB PO PRN (22:30)
[2018-06-07] MEDS ORDERED: DOCUSATE SODIUM 100 MG CAP PO PRN (22:30)
[2018-06-07] MEDS ORDERED: GLUCOSE GEL 15 GRAM TUBE PO PRN ×2 (22:30)
[2018-06-07] MEDS ORDERED: NACL 0.9% 3 ML SYG IV SCH (22:30)
[2018-06-07] MEDS ORDERED: GUAIFENESIN/DM 5ML CUP PO PRN (22:30)
[2018-06-07] MEDS ORDERED: HYDROCODONE/APAP (5/325) TAB PO PRN (22:30)
[2018-06-07] MEDS: ENOXAPARIN 100 MG/ML SYG SC SCH (22:42)
[2018-06-07] MEDS: FISH OIL 1,000 MG CAP PO SCH (22:42)
[2018-06-08] VITALS (12 sets, daily range): BP systolic 140–167; BP diastolic 69–89; PULSE 59–76; RESP 18; Ht 162.6 cm; Wt 75.5 kg
[2018-06-08] MEDS: INSULIN ASPART [NOVOLOG] 3 ML PEN SC SCH ×6 (01:14→20:40)
[2018-06-08] MEDS: ACCU-CHEK XX SCH (02:12)
[2018-06-08] MEDS: THIAMINE 100 MG TAB PO SCH (08:33)
[2018-06-08] MEDS: FISH OIL 1,000 MG CAP PO SCH ×2 (08:33→20:29)
[2018-06-08] MEDS: FAMOTIDINE 20 MG TAB PO SCH (08:33)
[2018-06-08] MEDS: FUROSEMIDE 40 MG TAB PO SCH (08:34)
[2018-06-08] MEDS: ASPIRIN (EC) 81 MG TAB PO SCH (08:34)
[2018-06-08] MEDS: ISOSORBIDE MONONITRATE(SR)30 MG TAB PO SCH (08:36)
[2018-06-08] MEDS: ENOXAPARIN 100 MG/ML SYG SC SCH (08:38)
[2018-06-08] MEDS ORDERED: APIXABAN 5 MG TABLET PO SCH (09:00)
--- NOTE | 2018-06-08 14:49 | HP ---
Date/Time of Note Date/Time of Note DATE: 06/08/18 TIME: 14:40 Assessment/Plan VTE Prophylaxis Risk score (from Nsg)>0 risk: 4 SCD applied (from Nsg): Yes SCD contraindicated: low risk/ambulating Pharmacological prophylaxis: LMWH Lines/Catheters IV Catheter Type (from Nrsg): [place] Urinary Cath still in place: No Assessment/Plan Hospital Course CC dyspnea History present illness 72-year-old gentleman cough dyspnea wheezing phlegm mostly clear for a few days. No known aggravating or relieving factors. Probably no temperature. Probably does not add a lot of salt to his foods and is adherent to low-salt diet. Possible atypical chest pain with cough. No calf pain travel. Not using his LifeVest ER: Stable vital signs concern of CHF on x-ray bundle branch block bradycardia PMH 1. Chronic kidney disease baseline around 2.5 2. Chr systolic CHF 3. Ho nsvt. LifeVest was obtained in the past. Presently not being used. 4. History of nonadherence. difficult to manage, recommended palliative/ hospice, of which he has refused in the past. 5. BBB chronic stable observe 6. Type 2 diabetes 7. Essential hypertension 8. Chronic GERD 9. Coronary artery disease? 10. Anemia likely of chronic disease 11. History of gout 12. Failure to thrive. Refused Hospice and Snf in the past. Past surgical history Angiogram? Social history No active tobacco or alcohol. Lives alone there is a son that I believe lives in [place]. Family history Nonpreferred review of system Neuro: No headache no loss speech vision Cor: Dyspnea chest pain atypical no edema Lungs: Cough dyspnea no fever Abdomen: No pain nausea vomiting diarrhea Genitourinary no abdominal pain dysuria hematuria Endocrine: No previous diabetes thyroid dysfunction. Possible dyslipidemia Musculoskeletal: Mild gait dysfunction no rash no itching no edema Psychiatry: Patient has a fairly stable mood advancing agitation anxiety. Potentially depressed Hematological: No hematochezia melena hematuria. Possible hemoptysis Exam No pallor adenopathy possible JVD Regular no murmur gallop Crackles bases Benign no abdominal bruits No edema or Homans A/P 1. Dyspnea possible bronchitis. Stable, continue supportive care 2. Acute on chronic decompensated systolic CHF, stable retry futile medical care 3. Nonadherence 4. H/o nsvt; nonadherent to LifeVest not a candidate for AICD 5. CKD 6. CAD? 7. Hypertension Result Diagram: 06/08/18 0537 06/08/18 0536 Results 24hrs Laboratory Tests Test 06/07/18 19:51 06/08/18 01:11 06/08/18 02:14 06/08/18 04:31 White Blood Count 7.1 Red Blood Count 3.65 L Hemoglobin 9.9 L Hematocrit 30.5 L Mean Corpuscular 83.6 Volume Mean Corpuscular 27.1 L Hemoglobin Mean Corpuscular 32.5 Hemoglobin Concent Red Cell 14.5 Distribution Width Platelet Count 274 Mean Platelet Volume 10.1 Immature 0.400 Granulocytes % Neutrophils % 70.2 Lymphocytes % 12.6 L Monocytes % 10.7 Eosinophils % 5.1 Basophils % 1.0 Nucleated Red Blood 0.0 Cells % Immature 0.030 Granulocytes # Neutrophils # 5.0 Lymphocytes # 0.9 Monocytes # 0.8 Eosinophils # 0.4 Basophils # 0.1 Nucleated Red Blood 0.0 Cells # Prothrombin Time 13.9 Prothrombin Time 1.1 Ratio INR International 1.06 Normalized Ratio Activated 33.2 Partial Thromboplast Time Sodium Level 138 Potassium Level 3.8 Chloride Level 102 Carbon Dioxide Level 27 Anion Gap 9 Blood Urea Nitrogen 60 H Creatinine 2.85 H Est Glomerular Filtrat Rate mL/min Glucose Level 295 H Calcium Level 9.4 Total Bilirubin 0.6 Direct Bilirubin 0.00 Indirect Bilirubin 0.6 Aspartate Amino 21 Transf (AST/SGOT) Alanine 41 Aminotransferase (AL T/SGPT) Alkaline Phosphatase 123 H Troponin I 0.246 *H B-Type Natriuretic 21098 H Peptide Total Protein 6.8 Albumin 3.6 Globulin 3.20 Albumin/Globulin 1.12 Ratio Lipase 53 Bedside Glucose 220 209 162 Test 06/08/18 05:36 06/08/18 05:37 06/08/18 07:41 06/08/18 11:41 Sodium Level 142 Potassium Level 3.3 L Chloride Level 104 Carbon Dioxide Level 29 Anion Gap 9 Blood Urea Nitrogen 60 H Creatinine 2.80 H Est Glomerular Filtrat Rate mL/min Glucose Level 126 # Calcium Level 9.4 Total Bilirubin 0.5 Direct Bilirubin 0.00 Indirect Bilirubin 0.5 Aspartate Amino 21 Transf (AST/SGOT) Alanine 37 Aminotransferase (AL T/SGPT) Alkaline Phosphatase 102 Troponin I 0.291 *H Total Protein 6.2 Albumin 3.2 L Globulin 3.00 Albumin/Globulin 1.06 Ratio White Blood Count 7.6 Red Blood Count 3.43 L Hemoglobin 9.3 L Hematocrit 28.7 L Mean Corpuscular 83.7 Volume Mean Corpuscular 27.1 L Hemoglobin Mean Corpuscular 32.4 Hemoglobin Concent Red Cell 14.6 H Distribution Width Platelet Count 274 Mean Platelet Volume 10.7 H Immature 0.400 Granulocytes % Neutrophils % 67.5 Lymphocytes % 13.4 L Monocytes % 11.4 H Eosinophils % 6.2 Basophils % 1.1 Nucleated Red Blood 0.0 Cells % Immature 0.030 Granulocytes # Neutrophils # 5.1 Lymphocytes # 1.0 Monocytes # 0.9 Eosinophils # 0.5 Basophils # 0.1 Nucleated Red Blood 0.0 Cells # Hemoglobin A1c 8.6 H Bedside Glucose 135 178 HPI/ROS Admit Date/Time Admit Date/Time Jun 07, 2018 at 21:21 PMH/Family/Social Past Medical History Medications Current Medications Aspirin (Halfprin) 81 mg DAILY PO Last administered on 06/08/18 08:34; Admin Dose 81 MG; Start 06/08/18 at 09:00 Atorvastatin Calcium (Lipitor) 40 mg QHS PO ; Start 06/08/18 at 21:00 Famotidine (Pepcid) 20 mg DAILY PO Last administered on 06/08/18 08:33; Admin Dose 20 MG; Start 06/08/18 at 09:00 Furosemide (Lasix) 40 mg DAILY PO Last administered on 06/08/18 08:34; Admin Dose 40 MG; Start 06/08/18 at 09:00 Isosorbide Mononitrate (Imdur) 30 mg DAILY PO Last administered on 06/08/18 08:36; Admin Dose 30 MG; Start 06/08/18 at 09:00 Thiamine HCl (Vitamin B1) 100 mg DAILY PO Last administered on 06/08/18 08:33; Admin Dose 100 MG; Start 06/08/18 at 09:00 Fish Oil (Fish Oil) 2,000 mg BID PO Last administered on 06/08/18 08:33; Admin Dose 2,000 MG; Start 06/07/18 at 22:30 IV Flush (NS 3 ml) 3 ml PER PROTOCOL IV ; Start 06/07/18 at 22:30 Ondansetron HCl (Zofran Inj) 4 mg Q6H PRN IV NAUSEA/VOMITING; Start 06/07/18 at 22:30 Acetaminophen (Tylenol Tab) 650 mg Q6H PRN PO .PAIN 1-3 OR TEMP; Start 06/07/18 at 22:30 Acetaminophen/ Hydrocodone Bitart ([place] (5/325)) 1 tab Q6H PRN PO .MOD PAIN 4- 6; Start 06/07/18 at 22:30 Morphine Sulfate (morphine) 2 mg Q4H PRN IV .SEVERE PAIN 7-10; Start 06/07/18 at 22:30 Docusate Sodium (Colace) 100 mg Q12H PRN PO .CONSTIPATION; Start 06/07/18 at 22:30 Bisacodyl (Dulcolax) 5 mg DAILY PRN PO .CONSTIPATION; Start 06/07/18 at 22:30 Enoxaparin Sodium (Lovenox) 90 mg DAILY SC Last administered on 06/08/18at 08:38; Admin Dose 90 MG; Start 06/07/18 at 22:30 Diagnostic Test (Pha) (Accu-Chek) 1 ea 02 XX Last administered on 06/08/18at 02:12; Admin Dose 1 EA; Start 06/08/18 at 02:00 Insulin Aspart (Novolog Insulin Pen) NOVOLOG *MODERATE* ALGORITHM WITH MEALS BEDTIME SC Last administered on 06/08/18at 11:54; Admin Dose 2 UNIT; Start 06/08/18 at 08:00 Miscellaneous Information 1 ea NOTE XX ; Start 06/07/18 at 22:30 Glucose (Glutose) 15 gm Q15M PRN PO DECREASED GLUCOSE; Start 06/07/18 at 22:30 Glucose (Glutose) 22.5 gm Q15M PRN PO DECREASED GLUCOSE; Start 06/07/18 at 22:30 Dextrose (D50w Syringe) 25 ml Q15M PRN IV DECREASED GLUCOSE; Start 06/07/18 at 22:30 Dextrose (D50w Syringe) 50 ml Q15M PRN IV DECREASED GLUCOSE; Start 06/07/18 at 22:30 Glucagon (Glucagen) 1 mg Q15M PRN IM DECREASED GLUCOSE; Start 06/07/18 at 22:30 Glucose (Glutose) 15 gm Q15M PRN BUCCAL DECREASED GLUCOSE; Start 06/07/18 at 22:30 Guaifenesin/ Dextromethorphan (Robitussin Dm Liquid Cup) 10 ml Q4H PRN PO COUGH; Start 06/07/18 at 22:30 Carvedilol (Coreg) 6.25 mg BID PO Last administered on 06/07/18at 22:41; Admin Dose 6.25 MG; Start 06/07/18 at 22:30 Hydralazine HCl (Apresoline) 100 mg BID PO Last administered on 06/08/18at 08:36; Admin Dose 100 MG; Start 06/07/18 at 22:30 Hydralazine HCl (Apresoline) 5 mg Q4H PRN IV ELEVATED SYSTOLIC BP; Start 06/07/18 at 22:30 Coded Allergies: Penicillins (Unverified Allergy, Mild, 06/07/18) Past Surgical History Past Surgical Hx: noncontributory, angioplasty Family History Significant Family History: no pertinent family hx Social History Smoking Status: Never smoker Exam/Review of Systems Vital Signs Vitals Vital Signs Date Temp Pulse Resp B/P (MAP) Pulse Ox O2 O2 Flow FiO2 Time Delivery Rate 06/08/18 68 12:24 06/08/18 97.6 18 164/82 93 Room Air 11:39 (109) 06/08/18 3.0 01:15 06/07/18 21 19:40 Intake and Output 06/07/18 06/07/18 06/08/18 1515:00 23:00 07:00 IntakeIntake Total 200 ml OutputOutput Total 750 ml BalanceBalance -550 ml CHUY HORTON MD Jun 08, 2018 14:49
[2018-06-08] MEDS: LEVOFLOXACIN 250 MG TAB PO SCH (15:51)
--- NOTE | 2018-06-08 17:35 | CONS ---
Assessment/Plan Assessment/Plan Assessment/Plan (Daily) Dyspnea Acute Chronic Decompensated CHF CKD False +trop due to CKD Mild CAD HTN -continue cardiac meds -increase coreg if bp remains elevated -False+trop due to ckd -mild CAD by cath in 2016 -last EF 40% by echo -no indication for a cath Consultation Date/Type/Reason Admit Date/Time Jun 07, 2018 at 21:21 Type of Consult Cardiology Date/Time of Note DATE: 06/08/18 TIME: 17:29 Hx of Present Illness 72-year-old man complains of 4 days of clear sputum cough, mild shortness of breath, mild sharp nonradiating nonexertional chest pain. He denies fevers or chills, no travel, no sick contacts and states he has been using his furosemide and aspirin daily as prescribed. Patient denies calf or leg swelling, no vomiting or diarrhea, no headache or blurry vision - he is stable and hx of cath with mildlyteevated trops and hx of ckd Past Medical History Home Meds Active Scripts Famotidine* (Famotidine*) 20 Mg Tablet, 20 MG PO DAILY, #15 TAB otc Prov:CHUY HORTON MD 05/11/18 Furosemide* (Furosemide*) 40 Mg Tablet, 40 MG PO DAILY for 14 Days, #14 TAB Prov:CHUY HORTON MD 05/11/18 Acetaminophen* (Tylenol*) 325 Mg Tablet, 650 MG PO Q6H PRN for .PAIN 1-3 OR TEMP for 1 Day, #1 TAB Prov:CHUY HORTON MD 05/11/18 Thiamine* (Thiamine*) 100 Mg Tablet, 100 MG PO DAILY for 30 Days, #30 TAB Prov:CHUY HORTON MD 04/01/18 Carvedilol* (Carvedilol*) 6.25 Mg Tablet, 6.25 MG PO BID for 10 Days, #20 TAB Prov:CHUY HORTON MD 04/01/18 [place]-3/Dha/Epa/Fish Oil (FISH OIL EC 1,000 MG SOFTGEL) 1 Each Capsule.dr, 2000 MG PO BID, #30 CAP Prov:JAD SHIN 03/03/17 Reported Medications Apixaban* (Eliquis*) 2.5 Mg Tablet, 2.5 MG PO BID, TAB 06/07/18 Carvedilol* (Carvedilol*) 6.25 Mg Tablet, 6.25 MG PO BID, #60 TAB 06/07/18 Hydralazine Hcl* (Hydralazine Hcl*) 100 Mg Tablet, 100 MG PO BID, #90 TAB 06/07/18 Isosorbide Mononitrate* (Isosorbide Mononitrate*) 30 Mg Tab.er.24h, 30 MG PO DAILY, TAB 03/20/18 Aspirin* (Aspirin* EC) 81 Mg Tablet.dr, 81 MG PO DAILY, TAB 03/04/18 Insulin Glargine,Hum.rec.anlog (Toujeo Solostar) 300 Unit/1 Ml Insuln.pen, 40 UNIT SQ QPM, EA 03/04/18 Atorvastatin* (Atorvastatin*) 40 Mg Tablet, 40 MG PO QHS, #30 TAB 03/04/18 Discontinued Reported Medications Clopidogrel Bisulfate (Clopidogrel) 75 Mg Tablet, 75 MG PO DAILY, #30 TAB 03/20/18 Febuxostat* (Uloric*) 80 Mg Tablet, 80 MG PO DAILY, TAB 03/20/18 Hydralazine Hcl* (Hydralazine Hcl*) 50 Mg Tab, 50 MG PO BID, #120 TAB 03/04/18 Liraglutide (Victoza 3-Donnie) 0.6 Mg/0.1 Ml Pen.injctr, 1.8 MG SQ QAM, SYR 03/04/18 Discontinued Scripts Lactobacillus Rhamnosus GG (Culturelle) 1 Each Capsule, 1 CAP PO BID for 10 Days, #20 CAP Prov:CHUY HORTON MD 05/11/18 Polyethylene Glycol* (Miralax*) 17 Gm Powd.pack, 17 GM PO BID for 5 Days otc Prov:CHUY HORTON MD 04/01/18 [NIFEdipine (XL)] 60 MG TABSR No Conflict Check, 60 MG PO DAILY for 10 Days, #10 Prov:CHUY HORTON MD 04/01/18 Clopidogrel Bisulfate (Clopidogrel) 75 Mg Tablet, 75 MG PO DAILY, #30 TAB Prov:JAD SHIN 03/03/17 Medications Current Medications Aspirin (Halfprin) 81 mg DAILY PO Last administered on 06/08/18 08:34; Admin Dose 81 MG; Start 06/08/18 at 09:00 Atorvastatin Calcium (Lipitor) 40 mg QHS PO ; Start 06/08/18 at 21:00 Famotidine (Pepcid) 20 mg DAILY PO Last administered on 06/08/18 08:33; Admin Dose 20 MG; Start 06/08/18 at 09:00 Furosemide (Lasix) 40 mg DAILY PO Last administered on 06/08/18 08:34; Admin Dose 40 MG; Start 06/08/18 at 09:00 Isosorbide Mononitrate (Imdur) 30 mg DAILY PO Last administered on 06/08/18 08:36; Admin Dose 30 MG; Start 06/08/18 at 09:00 Thiamine HCl (Vitamin B1) 100 mg DAILY PO Last administered on 06/08/18 08:33; Admin Dose 100 MG; Start 06/08/18 at 09:00 Fish Oil (Fish Oil) 2,000 mg BID PO Last administered on 06/08/18 08:33; Admin Dose 2,000 MG; Start 06/07/18 at 22:30 IV Flush (NS 3 ml) 3 ml PER PROTOCOL IV ; Start 06/07/18 at 22:30 Ondansetron HCl (Zofran Inj) 4 mg Q6H PRN IV NAUSEA/VOMITING; Start 06/07/18 at 22:30 Acetaminophen (Tylenol Tab) 650 mg Q6H PRN PO .PAIN 1-3 OR TEMP; Start 06/07/18 at 22:30 Acetaminophen/ Hydrocodone Bitart ([place] (5/325)) 1 tab Q6H PRN PO .MOD PAIN 4- 6; Start 06/07/18 at 22:30 Morphine Sulfate (morphine) 2 mg Q4H PRN IV .SEVERE PAIN 7-10; Start 06/07/18 at 22:30 Docusate Sodium (Colace) 100 mg Q12H PRN PO .CONSTIPATION; Start 06/07/18 at 22:30 Bisacodyl (Dulcolax) 5 mg DAILY PRN PO .CONSTIPATION; Start 06/07/18 at 22:30 Enoxaparin Sodium (Lovenox) 90 mg DAILY SC Last administered on 06/08/18 08:38; Admin Dose 90 MG; Start 06/07/18 at 22:30 Diagnostic Test (Pha) (Accu-Chek) 1 ea 02 XX Last administered on 06/08/18at 02:12; Admin Dose 1 EA; Start 06/08/18 at 02:00 Insulin Aspart (Novolog Insulin Pen) NOVOLOG *MODERATE* ALGORITHM WITH MEALS BEDTIME SC Last administered on 06/08/18at 17:16; Admin Dose 2 UNIT; Start 06/08/18 at 08:00 Miscellaneous Information 1 ea NOTE XX ; Start 06/07/18 at 22:30 Glucose (Glutose) 15 gm Q15M PRN PO DECREASED GLUCOSE; Start 06/07/18 at 22:30 Glucose (Glutose) 22.5 gm Q15M PRN PO DECREASED GLUCOSE; Start 06/07/18 at 22:30 Dextrose (D50w Syringe) 25 ml Q15M PRN IV DECREASED GLUCOSE; Start 06/07/18 at 22:30 Dextrose (D50w Syringe) 50 ml Q15M PRN IV DECREASED GLUCOSE; Start 06/07/18 at 22:30 Glucagon (Glucagen) 1 mg Q15M PRN IM DECREASED GLUCOSE; Start 06/07/18 at 22:30 Glucose (Glutose) 15 gm Q15M PRN BUCCAL DECREASED GLUCOSE; Start 06/07/18 at 22:30 Guaifenesin/ Dextromethorphan (Robitussin Dm Liquid Cup) 10 ml Q4H PRN PO COUG H; Start 06/07/18 at 22:30 Carvedilol (Coreg) 6.25 mg BID PO Last administered on 06/07/18at 22:41; Admin Dose 6.25 MG; Start 06/07/18 at 22:30 Hydralazine HCl (Apresoline) 100 mg BID PO Last administered on 06/08/18at 08:36; Admin Dose 100 MG; Start 06/07/18 at 22:30 Hydralazine HCl (Apresoline) 5 mg Q4H PRN IV ELEVATED SYSTOLIC BP; Start 06/07/18 at 22:30 Levofloxacin (Levaquin) 250 mg DAILY@06 PO Last administered on 06/08/18at 15:51; Admin Dose 250 MG; Start 06/08/18 at 15:00; Stop 06/10/18 at 23:00 Allergies: Coded Allergies: Penicillins (Unverified Allergy, Mild, 06/07/18) Past Surgical History Past Surgical Hx: noncontributory, angioplasty Social History Smoking Status: Never smoker Exam/Review of Systems Vital Signs Vitals Vital Signs Date Temp Pulse Resp B/P (MAP) Pulse Ox O2 O2 Flow FiO2 Time Delivery Rate 06/08/18 76 16:11 06/08/18 97.9 18 167/81 95 Room Air 15:28 (109) 06/08/18 3.0 01:15 06/07/18 21 19:40 Intake and Output 06/07/18 06/07/18 06/08/18 1414:59 22:59 06:59 IntakeIntake Total 200 ml OutputOutput Total 750 ml BalanceBalance -550 ml Labs Result Diagram: 06/08/18 0537 06/08/18 0536 Results 24hrs Laboratory Tests Test 06/07/18 19:51 06/08/18 01:11 06/08/18 02:14 06/08/18 04:31 White Blood Count 7.1 Red Blood Count 3.65 L Hemoglobin 9.9 L Hematocrit 30.5 L Mean Corpuscular 83.6 Volume Mean Corpuscular 27.1 L Hemoglobin Mean Corpuscular 32.5 Hemoglobin Concent Red Cell 14.5 Distribution Width Platelet Count 274 Mean Platelet Volume 10.1 Immature 0.400 Granulocytes % Neutrophils % 70.2 Lymphocytes % 12.6 L Monocytes % 10.7 Eosinophils % 5.1 Basophils % 1.0 Nucleated Red Blood 0.0 Cells % Immature 0.030 Granulocytes # Neutrophils # 5.0 Lymphocytes # 0.9 Monocytes # 0.8 Eosinophils # 0.4 Basophils # 0.1 Nucleated Red Blood 0.0 Cells # Prothrombin Time 13.9 Prothrombin Time 1.1 Ratio INR International 1.06 Normalized Ratio Activated 33.2 Partial Thromboplast Time Sodium Level 138 Potassium Level 3.8 Chloride Level 102 Carbon Dioxide Level 27 Anion Gap 9 Blood Urea Nitrogen 60 H Creatinine 2.85 H Est Glomerular Filtrat Rate mL/min Glucose Level 295 H Calcium Level 9.4 Total Bilirubin 0.6 Direct Bilirubin 0.00 Indirect Bilirubin 0.6 Aspartate Amino 21 Transf (AST/SGOT) Alanine 41 Aminotransferase (AL T/SGPT) Alkaline Phosphatase 123 H Troponin I 0.246 *H B-Type Natriuretic 48755 H Peptide Total Protein 6.8 Albumin 3.6 Globulin 3.20 Albumin/Globulin 1.12 Ratio Lipase 53 Bedside Glucose 220 209 162 Test 06/08/18 05:36 06/08/18 05:37 06/08/18 07:41 06/08/18 11:41 Sodium Level 142 Potassium Level 3.3 L Chloride Level 104 Carbon Dioxide Level 29 Anion Gap 9 Blood Urea Nitrogen 60 H Creatinine 2.80 H Est Glomerular Filtrat Rate mL/min Glucose Level 126 # Calcium Level 9.4 Total Bilirubin 0.5 Direct Bilirubin 0.00 Indirect Bilirubin 0.5 Aspartate Amino 21 Transf (AST/SGOT) Alanine 37 Aminotransferase (AL T/SGPT) Alkaline Phosphatase 102 Troponin I 0.291 *H Total Protein 6.2 Albumin 3.2 L Globulin 3.00 Albumin/Globulin 1.06 Ratio White Blood Count 7.6 Red Blood Count 3.43 L Hemoglobin 9.3 L Hematocrit 28.7 L Mean Corpuscular 83.7 Volume Mean Corpuscular 27.1 L Hemoglobin Mean Corpuscular 32.4 Hemoglobin Concent Red Cell 14.6 H Distribution Width Platelet Count 274 Mean Platelet Volume 10.7 H Immature 0.400 Granulocytes % Neutrophils % 67.5 Lymphocytes % 13.4 L Monocytes % 11.4 H Eosinophils % 6.2 Basophils % 1.1 Nucleated Red Blood 0.0 Cells % Immature 0.030 Granulocytes # Neutrophils # 5.1 Lymphocytes # 1.0 Monocytes # 0.9 Eosinophils # 0.5 Basophils # 0.1 Nucleated Red Blood 0.0 Cells # Hemoglobin A1c 8.6 H Bedside Glucose 135 178 Test 06/08/18 17:01 Bedside Glucose 155 Medications Medications Current Medications Aspirin (Halfprin) 81 mg DAILY PO Last administered on 06/08/18at 08:34; Admin Dose 81 MG; Start 06/08/18 at 09:00 Atorvastatin Calcium (Lipitor) 40 mg QHS PO ; Start 06/08/18 at 21:00 Famotidine (Pepcid) 20 mg DAILY PO Last administered on 06/08/18 08:33; Admin Dose 20 MG; Start 06/08/18 at 09:00 Furosemide (Lasix) 40 mg DAILY PO Last administered on 06/08/18 08:34; Admin Dose 40 MG; Start 06/08/18 at 09:00 Isosorbide Mononitrate (Imdur) 30 mg DAILY PO Last administered on 06/08/18at 08:36; Admin Dose 30 MG; Start 06/08/18 at 09:00 Thiamine HCl (Vitamin B1) 100 mg DAILY PO Last administered on 06/08/18at 08:33; Admin Dose 100 MG; Start 06/08/18 at 09:00 Fish Oil (Fish Oil) 2,000 mg BID PO Last administered on 06/08/18at 08:33; Admin Dose 2,000 MG; Start 06/07/18 at 22:30 IV Flush (NS 3 ml) 3 ml PER PROTOCOL IV ; Start 06/07/18 at 22:30 Ondansetron HCl (Zofran Inj) 4 mg Q6H PRN IV NAUSEA/VOMITING; Start 06/07/18 at 22:30 Acetaminophen (Tylenol Tab) 650 mg Q6H PRN PO .PAIN 1-3 OR TEMP; Start 06/07/18 at 22:30 Acetaminophen/ Hydrocodone Bitart ([place] (5/325)) 1 tab Q6H PRN PO .MOD PAIN 4- 6; Start 06/07/18 at 22:30 Morphine Sulfate (morphine) 2 mg Q4H PRN IV .SEVERE PAIN 7-10; Start 06/07/18 at 22:30 Docusate Sodium (Colace) 100 mg Q12H PRN PO .CONSTIPATION; Start 06/07/18 at 22:30 Bisacodyl (Dulcolax) 5 mg DAILY PRN PO .CONSTIPATION; Start 06/07/18 at 22:30 Enoxaparin Sodium (Lovenox) 90 mg DAILY SC Last administered on 06/08/18at 08:38; Admin Dose 90 MG; Start 06/07/18 at 22:30 Diagnostic Test (Pha) (Accu-Chek) 1 ea 02 XX Last administered on 06/08/18at 02:12; Admin Dose 1 EA; Start 06/08/18 at 02:00 Insulin Aspart (Novolog Insulin Pen) NOVOLOG *MODERATE* ALGORITHM WITH MEALS BEDTIME SC Last administered on 06/08/18at 17:16; Admin Dose 2 UNIT; Start 06/08/18 at 08:00 Miscellaneous Information 1 ea NOTE XX ; Start 06/07/18 at 22:30 Glucose (Glutose) 15 gm Q15M PRN PO DECREASED GLUCOSE; Start 06/07/18 at 22:30 Glucose (Glutose) 22.5 gm Q15M PRN PO DECREASED GLUCOSE; Start 06/07/18 at 22:30 Dextrose (D50w Syringe) 25 ml Q15M PRN IV DECREASED GLUCOSE; Start 06/07/18 at 22:30 Dextrose (D50w Syringe) 50 ml Q15M PRN IV DECREASED GLUCOSE; Start 06/07/18 at 22:30 Glucagon (Glucagen) 1 mg Q15M PRN IM DECREASED GLUCOSE; Start 06/07/18 at 22:30 Glucose (Glutose) 15 gm Q15M PRN BUCCAL DECREASED GLUCOSE; Start 06/07/18 at 22:30 Guaifenesin/ Dextromethorphan (Robitussin Dm Liquid Cup) 10 ml Q4H PRN PO COUGH; Start 06/07/18 at 22:30 Carvedilol (Coreg) 6.25 mg BID PO Last administered on 06/07/18at 22:41; Admin Dose 6.25 MG; Start 06/07/18 at 22:30 Hydralazine HCl (Apresoline) 100 mg BID PO Last administered on 06/08/18at 08:36; Admin Dose 100 MG; Start 06/07/18 at 22:30 Hydralazine HCl (Apresoline) 5 mg Q4H PRN IV ELEVATED SYSTOLIC BP; Start 06/07/18 at 22:30 Levofloxacin (Levaquin) 250 mg DAILY@06 PO Last administered on 06/08/18at 15:51; Admin Dose 250 MG; Start 06/08/18 at 15:00; Stop 06/10/18 at 23:00 PAIGE BRAND MD Jun 08, 2018 17:35
[2018-06-08] MEDS: ATORVASTATIN 40 MG TAB PO SCH (20:29)
[2018-06-09] VITALS (12 sets, daily range): BP systolic 140–150; BP diastolic 74–83; PULSE 56–84; RESP 18–20
[2018-06-09] MEDS: ACCU-CHEK XX SCH (02:43)
[2018-06-09] MEDS: LEVOFLOXACIN 250 MG TAB PO SCH (06:24)
[2018-06-09] MEDS: FISH OIL 1,000 MG CAP PO SCH ×2 (07:58→20:07)
[2018-06-09] MEDS: FUROSEMIDE 40 MG TAB PO SCH (07:58)
[2018-06-09] MEDS: THIAMINE 100 MG TAB PO SCH (07:59)
[2018-06-09] MEDS: ASPIRIN (EC) 81 MG TAB PO SCH (07:59)
[2018-06-09] MEDS: BISACODYL (EC) 5 MG TAB PO PRN (08:00)
[2018-06-09] MEDS: FAMOTIDINE 20 MG TAB PO SCH (08:00)
[2018-06-09] MEDS: ISOSORBIDE MONONITRATE(SR)30 MG TAB PO SCH (08:00)
[2018-06-09] MEDS: ENOXAPARIN 100 MG/ML SYG SC SCH (08:02)
[2018-06-09] MEDS: INSULIN ASPART [NOVOLOG] 3 ML PEN SC SCH ×4 (08:03→20:24)
--- NOTE | 2018-06-09 17:34 | PN ---
Date/Time of Note Date/Time of Note DATE: 06/09/18 TIME: 17:28 Assessment/Plan VTE Prophylaxis Risk score (from Ns)>0 risk: 3 SCD applied (from Ns): Yes SCD contraindicated: low risk/ambulating Pharmacological prophylaxis: LMWH, apixaban Lines/Catheters IV C[facility]ter Type [facility]from [facility] [place] Urinary Cath still in place: No Assessment/Plan Hospital Course A/P 1. Dyspnea; ac/ chr CHF- s; stable, discharge home soon. cont lasix 2. Chr systolic CHF; EF= 3. Ho nsvt. LifeVest was obtained in the past. Presently not being used. 4. H/o nonadherence. difficult to manage, recommended palliative/ hospice, of which he has refused in the past. 5. BBB chronic stable observe 6. Type 2 diabetes 7. Essential hypertension 8. Chr GERD 9. CAD; mild cad; cath '16? 10. ACD 11. H/o gout 12. Failure to thrive. Refused Hospice and Snf in the past. 13. Bronchitis stable continue supportive care 14. CKD 15. Anemia stable observe not symptomatic PE No pallor possible JVD Reg no m/r/g Crackles bases Benign nontender nondistended no RR G, no abdominal bruits No edema or Homans Result Diagram: 06/09/18 0531 06/09/18 0531 Results 24hrs Laboratory Tests Test 06/08/18 20:26 06/09/18 02:20 06/09/18 05:31 06/09/18 07:47 Bedside Glucose 324 H 166 170 White Blood Count 7.7 Red Blood Count 3.62 L Hemoglobin 9.5 L Hematocrit 29.8 L Mean Corpuscular 82.3 Volume Mean Corpuscular 26.2 L Hemoglobin Mean Corpuscular 31.9 L Hemoglobin Concent Red Cell 14.8 H Distribution Width Platelet Count 294 Mean Platelet Volume 10.4 Immature 0.500 H Granulocytes % Neutrophils % 69.9 Lymphocytes % 12.8 L Monocytes % 10.8 Eosinophils % 4.8 Basophils % 1.2 Nucleated Red Blood 0.0 Cells % Immature 0.040 H Granulocytes # Neutrophils # 5.4 Lymphocytes # 1.0 Monocytes # 0.8 Eosinophils # 0.4 Basophils # 0.1 Nucleated Red Blood 0.0 Cells # Sodium Level 139 Potassium Level 3.7 Chloride Level 103 Carbon Dioxide Level 26 Anion Gap 10 Blood Urea Nitrogen 64 H Creatinine 2.76 H Est Glomerular Filtrat Rate mL/min Glucose Level 165 Calcium Level 8.9 Magnesium Level 2.0 Troponin I 0.232 *H Test 06/09/18 11:36 06/09/18 17:17 Bedside Glucose 257 H 195 Exam/Review of Systems Exam Vitals Vital Signs Date Temp Pulse Resp B/P (MAP) Pulse Ox O2 O2 Flow FiO2 Time Delivery Rate 06/09/18 65 16:26 06/09/18 98.0 18 145/75 98 15:00 (98) 06/09/18 Room Air 03:42 06/08/18 3.0 01:15 06/07/18 21 19:40 Intake and Output 06/08/18 06/08/18 06/09/18 1515:00 23:00 07:00 IntakeIntake Total 300 ml 500 ml OutputOutput Total 900 ml 600 ml BalanceBalance -600 ml -100 ml Results Results 24hrs Laboratory Tests Test 06/08/18 20:26 06/09/18 02:20 06/09/18 05:31 06/09/18 07:47 Bedside Glucose 324 H 166 170 White Blood Count 7.7 Red Blood Count 3.62 L Hemoglobin 9.5 L Hematocrit 29.8 L Mean Corpuscular 82.3 Volume Mean Corpuscular 26.2 L Hemoglobin Mean Corpuscular 31.9 L Hemoglobin Concent Red Cell 14.8 H Distribution Width Platelet Count 294 Mean Platelet Volume 10.4 Immature 0.500 H Granulocytes % Neutrophils % 69.9 Lymphocytes % 12.8 L Monocytes % 10.8 Eosinophils % 4.8 Basophils % 1.2 Nucleated Red Blood 0.0 Cells % Immature 0.040 H Granulocytes # Neutrophils # 5.4 Lymphocytes # 1.0 Monocytes # 0.8 Eosinophils # 0.4 Basophils # 0.1 Nucleated Red Blood 0.0 Cells # Sodium Level 139 Potassium Level 3.7 Chloride Level 103 Carbon Dioxide Level 26 Anion Gap 10 Blood Urea Nitrogen 64 H Creatinine 2.76 H Est Glomerular Filtrat Rate mL/min Glucose Level 165 Calcium Level 8.9 Magnesium Level 2.0 Troponin I 0.232 *H Test 06/09/18 11:36 06/09/18 17:17 Bedside Glucose 257 H 195 Medications Medication Current Medications Aspirin (Halfprin) 81 mg DAILY PO Last administered on 06/09/18 07:59; Admin Dose 81 MG; Start 06/08/18 at 09:00 Atorvastatin Calcium (Lipitor) 40 mg QHS PO Last administered on 06/08/18 20:29; Admin Dose 40 MG; Start 06/08/18 at 21:00 Famotidine (Pepcid) 20 mg DAILY PO Last administered on 06/09/18 08:00; Admin Dose 20 MG; Start 06/08/18 at 09:00 Furosemide (Lasix) 40 mg DAILY PO Last administered on 06/09/18 07:58; Admin Dose 40 MG; Start 06/08/18 at 09:00 Isosorbide Mononitrate (Imdur) 30 mg DAILY PO Last administered on 06/09/18 08:00; Admin Dose 30 MG; Start 06/08/18 at 09:00 Thiamine HCl (Vitamin B1) 100 mg DAILY PO Last administered on 06/09/18 07:59; Admin Dose 100 MG; Start 06/08/18 at 09:00 Fish Oil (Fish Oil) 2,000 mg BID PO Last administered on 06/09/18 07:58; Admin Dose 2,000 MG; Start 06/07/18 at 22:30 IV Flush (NS 3 ml) 3 ml PER PROTOCOL IV ; Start 06/07/18 at 22:30 Ondansetron HCl (Zofran Inj) 4 mg Q6H PRN IV NAUSEA/VOMITING; Start 06/07/18 at 22:30 Acetaminophen (Tylenol Tab) 650 mg Q6H PRN PO .PAIN 1-3 OR TEMP; Start 06/07/18 at 22:30 Acetaminophen/ Hydrocodone Bitart ([place] (5/325)) 1 tab Q6H PRN PO .MOD PAIN 4- 6; Start 06/07/18 at 22:30 Morphine Sulfate (morphine) 2 mg Q4H PRN IV .SEVERE PAIN 7-10; Start 06/07/18 at 22:30 Docusate Sodium (Colace) 100 mg Q12H PRN PO .CONSTIPATION; Start 06/07/18 at 22:30 Bisacodyl (Dulcolax) 5 mg DAILY PRN PO .CONSTIPATION Last administered on 06/09/18 08:00; Admin Dose 5 MG; Start 06/07/18 at 22:30 Enoxaparin Sodium (Lovenox) 90 mg DAILY SC Last administered on 06/09/18at 08:02; Admin Dose 90 MG; Start 06/07/18 at 22:30 Diagnostic Test (Pha) (Accu-Chek) 1 ea 02 XX Last administered on 06/09/18at 02:43; Admin Dose 1 EA; Start 06/08/18 at 02:00 Insulin Aspart (Novolog Insulin Pen) NOVOLOG *MODERATE* ALGORITHM WITH MEALS BEDTIME SC Last administered on 06/09/18at 11:41; Admin Dose 6 UNIT; Start 06/08 at 08:00 Miscellaneous Information 1 ea NOTE XX ; Start 06/07/18 at 22:30 Glucose (Glutose) 15 gm Q15M PRN PO DECREASED GLUCOSE; Start 06/07/18 at 22:30 Glucose (Glutose) 22.5 gm Q15M PRN PO DECREASED GLUCOSE; Start 06/07/18 at 22:30 Dextrose (D50w Syringe) 25 ml Q15M PRN IV DECREASED GLUCOSE; Start 06/07/18 at 22:30 Dextrose (D50w Syringe) 50 ml Q15M PRN IV DECREASED GLUCOSE; Start 06/07/18 at 22:30 Glucagon (Glucagen) 1 mg Q15M PRN IM DECREASED GLUCOSE; Start 06/07/18 at 22:30 Glucose (Glutose) 15 gm Q15M PRN BUCCAL DECREASED GLUCOSE; Start 06/07/18 at 22:30 Guaifenesin/ Dextromethorphan (Robitussin Dm Liquid Cup) 10 ml Q4H PRN PO COUGH; Start 06/07/18 at 22:30 Carvedilol (Coreg) 6.25 mg BID PO Last administered on 06/09/18at 07:59; Admin Dose 6.25 MG; Start 06/07/18 at 22:30 Hydralazine HCl (Apresoline) 100 mg BID PO Last administered on 06/09/18at 07:59; Admin Dose 100 MG; Start 06/07/18 at 22:30 Hydralazine HCl (Apresoline) 5 mg Q4H PRN IV ELEVATED SYSTOLIC BP; Start 06/07/18 at 22:30 Levofloxacin (Levaquin) 250 mg DAILY@06 PO Last administered on 06/09/18at 06:24; Admin Dose 250 MG; Start 06/08/18 at 15:00; Stop 06/10/18 at 23:00 CHUY HORTON MD Jun 09, 2018 17:34
[2018-06-09] MEDS ORDERED: INSULIN GLARGINE [LANTus] (100 UNITS/ML) SYG SC SCH (20:00)
[2018-06-09] MEDS: ATORVASTATIN 40 MG TAB PO SCH (20:07)
[2018-06-10] VITALS (9 sets, daily range): BP systolic 132–149; BP diastolic 73–90; PULSE 55–75; RESP 18
[2018-06-10] MEDS: ACCU-CHEK XX SCH (02:11)
[2018-06-10] MEDS: LEVOFLOXACIN 250 MG TAB PO SCH (06:01)
[2018-06-10] MEDS: FISH OIL 1,000 MG CAP PO SCH (07:55)
[2018-06-10] MEDS: THIAMINE 100 MG TAB PO SCH (07:55)
[2018-06-10] MEDS: FUROSEMIDE 40 MG TAB PO SCH (07:55)
[2018-06-10] MEDS: FAMOTIDINE 20 MG TAB PO SCH (07:55)
[2018-06-10] MEDS: ISOSORBIDE MONONITRATE(SR)30 MG TAB PO SCH (07:56)
[2018-06-10] MEDS: BISACODYL (EC) 5 MG TAB PO PRN (07:58)
[2018-06-10] MEDS: ASPIRIN (EC) 81 MG TAB PO SCH (07:58)
[2018-06-10] MEDS: INSULIN ASPART [NOVOLOG] 3 ML PEN SC SCH ×3 (07:59→17:28)
[2018-06-10] MEDS ORDERED: ENOXAPARIN 30 MG/0.3 ML SYG SC SCH (09:00)
--- NOTE | 2018-06-10 15:07 | PDOCDIS ---
Discharge Instructions CONDITION [id number] Patient Condition: [id number] Stable HOME CARE INSTRUCTIONS: [id number] Diet Instructions: [id number] Low Fat /Cholesterol ACTIVITY: [id number] Activity Restrictions: [id number] Slowly Increase Activity FOLLOW UP/APPOINTMENTS Follow-up Plan pcp 1wk Cardio 1wk Palliative Care CHUY HORTON MD Jun 10, 2018 15:07
[2018-06-10] MEDS ORDERED: GUAI5SYR2 PO (15:13)
[2018-06-10] MEDS ORDERED: MED4DP PO (15:13)
[2018-06-10] MEDS ORDERED: ALBU90AE INHALATION (15:13)
[2018-06-10] MEDS ORDERED: ACET325T33 PO (15:13)
--- NOTE | 2018-06-10 15:17 | DS ---
Date/Time of Note Date/Time of Note DATE: 06/10/18 TIME: 15:14 Discharge Summary Admission/Discharge Info Admit Date/Time Jun 07, 2018 at 21:21 Discharge Date/Time Patient Condition: Stable Procedures XR Chest. FINDINGS: There is mild bilateral interstitial and air space disease in the mid and lower lung zones, unchanged. The lungs are otherwise clear. The heart is enlarged. There is no pleural effusion. There is no pneumothorax. IMPRESSION: 1. No change from the 05/09/2018 chest radiograph. Hx of Present Illness 72-year-old gentleman admitted with shortness of breath Hospital Course Hospitalist coverage/hospital course evaluated managed for shortness of breath. Acute on chronic decompensated systolic CHF. Stable, discharged home on beta-abraham Imdur diuretics. Unfortunately due to nonadherence his comorbidities are likely progressing. His creatinine has been noted. Patient is refused and he has been nonadherent to medical recommendations in the past. Unable to establish a rapport in terms of establishing goals of care. I asked him to consider advanced care planning and a DNR with the assistance of his son over the past/previous admissions. Patient has refused LifeVest for nsvt in the past. Possibly has an acute bronchitis and viral induced episode. Will discharge home initially on Medrol albuterol Robitussin. Influenza testing has been normal. A/P 1. Dyspnea; ac/ chr CHF- s; stable, discharge home. cont lasix 2. Chr systolic CHF; EF= 3. Ho nsvt. LifeVest was obtained in the past. Presently not being used. 4. H/o nonadherence. difficult to manage, recommended palliative/ hospice, of which he has refused in the past. 5. BBB chronic stable observe 6. Type 2 diabetes 7. Essential hypertension 8. Chr GERD 9. CAD; mild cad; cath '16? 10. ACD 11. H/o gout 12. Failure to thrive. Refused Hospice and Snf in the past. 13. Bronchitis stable continue supportive care 14. CKD 15. Anemia stable observe not symptomatic Home Meds Active Scripts Guaifenesin-Dextromethorphan* (Robitussin* DM) 100MG/10MG/5ML Syrup, 10 ML PO Q6H PRN for COUGH MDD 4 for 10 Days, #1 ML Prov:CHUY HORTON MD 06/10/18 Albuterol Sulfate (Proair Respiclick) 90 Mcg Aer.pow.ba, 2 PUFFS INHALATION Q4H WHILE AWAKE PRN for SHORTNESS OF BREATH MDD 6 for 1 Day, BOTTLE 2 Refills Prov:CHUY HORTON MD 06/10/18 Methylprednisolone* (Medrol* DOSE PACK) 4 Mg/Dose-Pack Tab.ds.pk, 4 MG PO . DIRECTED for 4 Days, PACKET Dispense 1 packet Prov:CHUY HORTON MD 06/10/18 Acetaminophen* (Tylenol*) 325 Mg Tablet, 650 MG PO Q6H PRN for .PAIN 1-3 OR TEMP for 7 Days, TAB Prov:CHUY HORTON MD 06/10/18 Famotidine* (Famotidine*) 20 Mg Tablet, 20 MG PO DAILY, #15 TAB otc Prov:CHUY HORTON MD 05/11/18 Furosemide* (Furosemide*) 40 Mg Tablet, 40 MG PO DAILY for 14 Days, #14 TAB Prov:CHUY HORTON MD 05/11/18 Acetaminophen* (Tylenol*) 325 Mg Tablet, 650 MG PO Q6H PRN for .PAIN 1-3 OR TEMP for 1 Day, #1 TAB Prov:CHUY HORTON MD 05/11/18 Thiamine* (Thiamine*) 100 Mg Tablet, 100 MG PO DAILY for 30 Days, #30 TAB Prov:CHUY HORTON MD 04/01/18 [place]-3/Dha/Epa/Fish Oil (FISH OIL EC 1,000 MG SOFTGEL) 1 Each Capsule.dr, 2000 MG PO BID, #30 CAP Prov:JAD SHIN 03/03/17 Reported Medications Apixaban* (Eliquis*) 2.5 Mg Tablet, 2.5 MG PO BID, TAB 06/07/18 Carvedilol* (Carvedilol*) 6.25 Mg Tablet, 6.25 MG PO BID, #60 TAB 06/07/18 Hydralazine Hcl* (Hydralazine Hcl*) 100 Mg Tablet, 100 MG PO BID, #90 TAB 06/07/18 Isosorbide Mononitrate* (Isosorbide Mononitrate*) 30 Mg Tab.er.24h, 30 MG PO DAILY, TAB 03/20/18 Aspirin* (Aspirin* EC) 81 Mg Tablet.dr, 81 MG PO DAILY, TAB 03/04/18 Insulin Glargine,Hum.rec.anlog (Chhaya Boswell) 300 Unit/1 Ml Insuln.pen, 40 UNIT SQ QPM, EA 03/04/18 Atorvastatin* (Atorvastatin*) 40 Mg Tablet, 40 MG PO QHS, #30 TAB 03/04/18 Discontinued Reported Medications Clopidogrel Bisulfate (Clopidogrel) 75 Mg Tablet, 75 MG PO DAILY, #30 TAB 03/20/18 Febuxostat* (Uloric*) 80 Mg Tablet, 80 MG PO DAILY, TAB 03/20/18 Hydralazine Hcl* (Hydralazine Hcl*) 50 Mg Tab, 50 MG PO BID, #120 TAB 03/04/18 Liraglutide (Victoza 3-Donnie) 0.6 Mg/0.1 Ml Pen.injctr, 1.8 MG SQ QAM, SYR 03/04/18 Discontinued Scripts Carvedilol* (Carvedilol*) 6.25 Mg Tablet, 6.25 MG PO BID for 10 Days, #20 TAB Prov:CHUY HORTON MD 04/01/18 Lactobacillus Rhamnosus GG (Culturelle) 1 Each Capsule, 1 CAP PO BID for 10 Days, #20 CAP Prov:CHUY HORTON MD 05/11/18 Polyethylene Glycol* (Miralax*) 17 Gm Powd.pack, 17 GM PO BID for 5 Days otc Prov:CHUY HORTON MD 04/01/18 [NIFEdipine (XL)] 60 MG TABSR No Conflict Check, 60 MG PO DAILY for 10 Days, #10 Prov:CHUY HORTON MD 04/01/18 Clopidogrel Bisulfate (Clopidogrel) 75 Mg Tablet, 75 MG PO DAILY, #30 TAB Prov:JAD SHIN 03/03/17 Follow-up Plan pcp 1wk Cardio 1wk Palliative Care Primary Care Provider Not On Staff Doctor Time spent on discharge: < 30 minutes Pending Labs Laboratory Tests Test 06/09/18 17:17 06/09/18 20:05 06/10/18 02:10 06/10/18 05:59 Bedside 195 228 151 Glucose mg/dL (70-220) mg/dL (70-220) mg/dL (70-220) White Blood 8.3 Count 10^3/ul (4.8-1 0.8) Red Blood 3.57 Count 10^6/ul (4.70- 6.10) Hemoglobin 9.7 g/dl (14.0-18. 0) Hematocrit 29.4 % (42.0-52.0) Mean 82.4 Corpuscular fl (82.0-101.0 Volume ) Mean 27.2 Corpuscular pg (29.0-33.0) Hemoglobin Mean 33.0 Corpuscular g/dl (32.0-37. Hemoglobin Conc 0) ent Red Cell 15.0 Distribution % (11.5-14.5) Width Platelet Count 301 10^3/UL (140-4 15) Mean Platelet 10.4 Volume fl (7.4-10.4) Immature 0.400 Granulocytes % % (0.001-0.429 ) Neutrophils % 68.0 % (39.0-77.0) Lymphocytes % 14.1 % (15.0-51.0) Monocytes % 12.0 % (0.0-11.0) Eosinophils % 4.7 % (0.0-7.0) Basophils % 0.8 % (0.0-2.0) Nucleated Red 0.0 Blood Cells % /100WBC (0.0-0 .0) Immature 0.030 Granulocytes # 10^3/ul (0.0-0 .031) Neutrophils # 5.6 10^3/ul (1.6-7 .5) Lymphocytes # 1.2 10^3/ul (0.8-2 .9) Monocytes # 1.0 10^3/ul (0.3-0 .9) Eosinophils # 0.4 10^3/ul (0.0-0 .5) Basophils # 0.1 10^3/ul (0.0-0 .1) Nucleated Red 0.0 Blood Cells # 10^3/ul (0.0-0 .0) Sodium Level 140 mmol/L (135-14 4) Potassium 3.9 Level mmol/L (3.5-5. 1) Chloride Level 104 mmol/L (97-110 ) Carbon Dioxide 27 Level mmol/L (21-31) Anion Gap 9 (5-13) Blood Urea 68 Nitrogen mg/dl (7-20) Creatinine 3.16 mg/dl (0.61-1. 24) Est Glomerular mL/min (>60) Filtrat Rate mL/min Glucose Level 143 mg/dl (70-220) Calcium Level 9.2 mg/dl (8.4-10. 2) Magnesium 2.1 Level mg/dl (1.7-2.5 ) Test 06/10/18 07:54 06/10/18 11:19 Bedside 147 354 Glucose mg/dL (70-220) mg/dL (70-220) CHUY HORTON MD Jun 10, 2018 15:17
== END 2018-06-10 17:30 | disposition home or self-care (01) | DRG 291 ==
LOC: E/R 16:15 → 6WM 21:21
PROVIDERS: ADMIT Internal Medicine; ATTEND Internal Medicine
DX: I13.0 Hypertensive heart and chronic kidney disease with heart failure and stage 1 through stage 4 chronic kidney disease, or unspecified chronic kidney disease (principal); I50.23 Acute on chronic systolic (congestive) heart failure; N18.9 Chronic kidney disease, unspecified; E11.22 Type 2 diabetes mellitus with diabetic chronic kidney disease; I25.10 Atherosclerotic heart disease of native coronary artery without angina pectoris; K21.9 Gastro-esophageal reflux disease without esophagitis; M10.9 Gout, unspecified; R62.7 Adult failure to thrive; J40 Bronchitis, not specified as acute or chronic; D64.9 Anemia, unspecified; Z88.0 Allergy status to penicillin; Z95.5 Presence of coronary angioplasty implant and graft
CPT/HCPCS: 36415; 71045; 80048; 80053; 82962; 83036; 83690; 83735; 83880; 84484; 85025; 85610; 85730; 87400; 93005; 94644; J1650; J1815; J1940

== ENCOUNTER 2018-07-30 15:09 | Inpatient (IN) | payer OTHER, MEDICAID ==
[~2018-07-30] VITALS: Ht 162.6 cm; Wt 80.0 kg
[~2018-07-30 15:09] MED LIST changes: +ALBU90AE INHALATION; +APIX2.5T PO; -CLOP75TA27 PO; -FEBU80TA PO; +GUAI5SYR2 PO; -HYDR-3672 PO; +HYDR100T25 PO; -LACT1CAP28 PO; -LIRA0.6P2 SQ; +MED4DP PO; -NIFEdipine (XL) PO; -POLY17PO6 PO
--- NOTE | 2018-07-30 15:20 | ERD ---
ER Documentation Chief Complaint Chief Complaint RDS, SKIN COLOR PALE HPI 2-year-old man with a history of CHF presenting with shortness of breath, states he has been using Lasix without relief and is requesting BiPAP. He has exerti onal dyspnea and orthopnea. Patient denies chest pain, no fevers or chills, no vomiting or diarrhea. ROS All systems reviewed and are negative except as per history of present illness. Medications Home Meds Active Scripts Thiamine* (Thiamine*) 100 Mg Tablet, 100 MG PO DAILY for 30 Days, #30 TAB Prov:CHUY HORTON MD 04/01/18 Reported Medications Liraglutide (Victoza 3-Donnie) 0.6 Mg/0.1 Ml Pen.injctr, 1.8 MG SQ BID, SYR 07/30/18 [place]-3 Acid Ethyl Esters (Lovaza) 1 Gm Capsule, 2 GM PO BID, CAP 07/30/18 Furosemide* (Furosemide*) 40 Mg Tablet, 40 MG PO DAILY, TAB 07/30/18 Apixaban* (Eliquis*) 2.5 Mg Tablet, 2.5 MG PO BID, TAB 06/07/18 Carvedilol* (Carvedilol*) 6.25 Mg Tablet, 6.25 MG PO BID, #60 TAB 06/07/18 Hydralazine Hcl* (Hydralazine Hcl*) 100 Mg Tablet, 100 MG PO BID, #90 TAB 06/07/18 Isosorbide Mononitrate* (Isosorbide Mononitrate*) 30 Mg Tab.er.24h, 30 MG PO DAILY, TAB 03/20/18 Aspirin* (Aspirin* EC) 81 Mg Tablet.dr, 81 MG PO DAILY, TAB 03/04/18 Insulin Glargine,Hum.rec.anlog (Chhaya Boswell) 300 Unit/1 Ml Insuln.pen, 42 UNIT SQ QPM, EA 03/04/18 Atorvastatin* (Atorvastatin*) 40 Mg Tablet, 40 MG PO QHS, #30 TAB 03/04/18 Discontinued Scripts Guaifenesin-Dextromethorphan* (Robitussin* DM) 100MG/10MG/5ML Syrup, 10 ML PO Q6H PRN for COUGH MDD 4 for 10 Days, #1 ML Prov:CHUY HORTON MD 06/10/18 Albuterol Sulfate (Proair Respiclick) 90 Mcg Aer.pow.ba, 2 PUFFS INHALATION Q4H WHILE AWAKE PRN for SHORTNESS OF BREATH MDD 6 for 1 Day, BOTTLE 2 Refills Prov:CHUY HORTON MD 06/10/18 Methylprednisolone* (Medrol* DOSE PACK) 4 Mg/Dose-Pack Tab.ds.pk, 4 MG PO . DIRECTED for 4 Days, PACKET Dispense 1 packet Prov:CHUY HORTON MD 06/10/18 Acetaminophen* (Tylenol*) 325 Mg Tablet, 650 MG PO Q6H PRN for .PAIN 1-3 OR TEMP for 7 Days, TAB Prov:CHUY HORTON MD 06/10/18 Famotidine* (Famotidine*) 20 Mg Tablet, 20 MG PO DAILY, #15 TAB otc Prov:CHUY HORTON MD 05/11/18 Furosemide* (Furosemide*) 40 Mg Tablet, 40 MG PO DAILY for 14 Days, #14 TAB Prov:CHUY HORTON MD 05/11/18 Acetaminophen* (Tylenol*) 325 Mg Tablet, 650 MG PO Q6H PRN for .PAIN 1-3 OR TEMP for 1 Day, #1 TAB Prov:CHUY HORTON MD 05/11/18 [place]-3/Dha/Epa/Fish Oil (FISH OIL EC 1,000 MG SOFTGEL) 1 Each Capsule.dr, 2000 MG PO BID, #30 CAP Prov:JAD SHIN NP 03/03/17 Allergies Allergies: Coded Allergies: Penicillins (Unverified Allergy, Mild, 07/30/18) PMhx/Soc CHF, bundle branch block, diabetes mellitus, hypertension, GERD, CAD, gout, chronic kidney disease, anemia History of Surgery: Yes (prostate sx, cardiac stent) Anesthesia Reaction: No Hx Neurological Disorder: No Hx Respiratory Disorders: No Hx Cardiac Disorders: Yes (HTN, CHF, CAD) Hx Psychiatric Problems: No Hx Miscellaneous Medical Probl: Yes (CKD) Hx Alcohol Use: No Hx Substance Use: No Hx Tobacco Use: No FmHx Family History: No diabetes Physical Exam Vitals Vital Signs Date Temp Pulse Resp B/P (MAP) Pulse Ox O2 O2 Flow FiO2 Time Delivery Rate 6/16/19 63 20 146/63 99 BIPAP 15:40 (90) 07/30/18 98.9 62 26 146/83 97 Room Air 15:38 (104) 07/30/18 64 100 30 15:35 07/30/18 99.0 74 30 167/79 88 15:12 (108) Physical Exam Const: Well-developed well-nourished, dyspneic, afebrile Resp: Crackles throughout the lung garcia Cardio: Regular rate and rhythm, no murmurs Skin: No petechiae or rashes, no lacerations or hematomas Back: No midline or flank tenderness Ext: No cyanosis, or edema Neur: Awake and alert x3, no focal deficits or facial asymmetry Psych: Normal Mood and Affect Result Diagram: 07/31/18 0503 07/31/18 0503 Results 24 hrs Laboratory Tests Test 07/30/18 15:30 07/30/18 15:33 White Blood Count 7.0 10^3/ul Red Blood Count 3.82 10^6/ul Hemoglobin 9.9 g/dl Hematocrit 31.4 % Mean Corpuscular Volume 82.2 fl Mean Corpuscular Hemoglobin 25.9 pg Mean Corpuscular Hemoglobin Concent 31.5 g/dl Red Cell Distribution Width 15.0 % Platelet Count 253 10^3/UL Mean Platelet Volume 10.1 fl Immature Granulocytes % 0.100 % Neutrophils % 76.1 % Lymphocytes % 7.7 % Monocytes % 10.0 % Eosinophils % 5.0 % Basophils % 1.1 % Nucleated Red Blood Cells % 0.0 /100WBC Immature Granulocytes # 0.010 10^3/ul Neutrophils # 5.3 10^3/ul Lymphocytes # 0.5 10^3/ul Monocytes # 0.7 10^3/ul Eosinophils # 0.4 10^3/ul Basophils # 0.1 10^3/ul Nucleated Red Blood Cells # 0.0 10^3/ul Prothrombin Time 14.5 Sec Prothrombin Time Ratio 1.1 INR International Normalized Ratio 1.12 Activated Partial Thromboplast Time 35.0 Sec Sodium Level 134 mmol/L Potassium Level 3.8 mmol/L Chloride Level 99 mmol/L Carbon Dioxide Level 26 mmol/L Anion Gap 9 Blood Urea Nitrogen 55 mg/dl Creatinine 2.39 mg/dl Est Glomerular Filtrat Rate mL/min mL/min Glucose Level 438 mg/dl Calcium Level 9.1 mg/dl Total Bilirubin 0.8 mg/dl Direct Bilirubin 0.00 mg/dl Indirect Bilirubin 0.8 mg/dl Aspartate Amino Transf (AST/SGOT) 49 IU/L Alanine Aminotransferase (ALT/SGPT) 65 IU/L Alkaline Phosphatase 140 IU/L Troponin I 0.039 ng/ml B-Type Natriuretic Peptide 17730 PG/ML Total Protein 6.1 g/dl Albumin 3.6 g/dl Globulin 2.50 g/dl Albumin/Globulin Ratio 1.44 Lipase 54 U/L Procalcitonin 0.11 ng/mL Urine Color STRAW Urine Clarity CLEAR Urine pH 6.0 Urine Specific [place] 1.007 Urine Ketones NEGATIVE mg/dL Urine Nitrite NEGATIVE mg/dL Urine Bilirubin NEGATIVE mg/dL Urine Urobilinogen NEGATIVE mg/dL Urine Leukocyte Esterase NEGATIVE Ricky/ul Urine Microscopic RBC 0 /HPF Urine Microscopic WBC 0 /HPF Urine Hemoglobin NEGATIVE mg/dL Urine Glucose 3+ mg/dL Urine Total Protein 2+ mg/dl Current Medications Medications Dose Sig/Monty Start Time Status Last (Trade) Ordered Route PRN Stop Time Admin Dose Reason Admin Enalaprilat 1.25 mg ONCE ONCE 07/30/18 DC 07/30/18 (Vasotec Iv) IV 15:30 15:32 07/30/18 15:31 Furosemide 60 mg ONCE ONCE 07/30/18 DC 07/30/18 (Lasix) IV 15:30 15:33 07/30/18 15:31 Aspirin 162 mg ONCE ONCE 07/30/18 DC 07/30/18 (Aspirin) PO 15:30 15:32 07/30/18 15:31 Procedures/[facility] IV line was established patient was placed on surveillance monitor rhythm strip revealed a sinus rhythm at about 60 bpm with upright P and T waves. Patient was afebrile EKG performed, read by me reveals a left bundle branch block rate controlled at 64 bpm, left axis deviation, no concerning ST elevations or depressions noted, prolonged QT of 505 ms For dyspnea I placed the patient on BiPAP therapy 1 view chest x-ray performed, read by me revealed cardiomegaly and bilateral pulmonary edema, no acute infiltrates, no pneumothorax I administered aspirin 162 mg p.o. for cardioprotective measures, furosemide 60 mg IV, and enalapril 1.25 mg IV. Blood sugar was elevated at over 400 and I administered lispro insulin 10 units subcutaneous injection. Critical Care: Time: 43 minutes, this was time separate from other billable procedures. Treatments/Evaluations: Close monitoring and treatment of unstable vital signs, cardiorespiratory, and neurologic status, while maintaining tight balance of fluid, respiratory, and cardiac interventions. CBC reveals mild anemia, electrolytes revealed dehydration acute kidney injury with a BUN/creatinine 59/2.7, liver function tests unremarkable, BNP elevated, troponin negative Patient admitted to telemetry setting for continued medical management and diuresis. Departure Diagnosis: Primary Impression: Acute kidney injury Additional Impressions: CHF (congestive heart failure) Heart failure type: combined systolic and diastolic Heart failure chronicity: acute Qualified Codes: I50.41 - Acute combined systolic (congestive) and diastolic (congestive) heart failure Pulmonary edema Chronicity: acute Qualified Codes: J81.0 - Acute pulmonary edema Hypertension Hypertension type: essential hypertension Qualified Codes: I10 - Essential (primary) hypertension Condition: ESTRADA Kemp MD Jul 30, 2018 15:20
[2018-07-30] MEDS ORDERED: ENALAPRILAT 1.25 MG INJ IV ONE (15:30)
[2018-07-30] MEDS ORDERED: ASPIRIN 81 MG TAB PO ONE (15:30)
[2018-07-30] MEDS ORDERED: FUROSEMIDE 40 MG INJ IV ONE (15:30)
[2018-07-30] MEDS ORDERED: FURO40TA4 PO (16:06)
[2018-07-30] MEDS ORDERED: OMEG1CAP2 PO (16:06)
[2018-07-30] MEDS ORDERED: LIRA0.6P2 SQ (16:07)
[2018-07-30] MEDS ORDERED: ACCU-CHEK XX ONE (16:30)
[2018-07-30] MEDS ORDERED: INSULIN LISPRO 100 UNIT/ML VIAL SC ONE (16:30)
[2018-07-30] MEDS: INSULIN ASPART [NOVOLOG] 3 ML PEN SC SCH ×2 (18:00→21:00)
[2018-07-30] MEDS ORDERED: ONDANSETRON 4 MG INJ IV PRN (18:00)
[2018-07-30] MEDS ORDERED: NACL 0.9% 3 ML SYG IV SCH (18:00)
[2018-07-30] MEDS ORDERED: ACETAMINOPHEN 325 MG TAB PO PRN (18:00)
[2018-07-30 18:12] VITALS: BP 172/81; PULSE 64; RESP 20
--- NOTE | 2018-07-30 18:14 | HP ---
Date/Time of Note Date/Time of Note DATE: 07/30/18 TIME: 17:56 Assessment/Plan VTE Prophylaxis SCD applied (from Nsg): Yes Pharmacological prophylaxis: heparin Lines/Catheters IV Catheter Type (from Nrsg): Saline Lock Assessment/Plan Assessment/Plan 72 yo man with IDDM, CKD, HTN and CHF presenting in exacerbation. #Chronic congestive heart failure with acute exacerbation - Elevated BNP, pulmonary edema on CXR - IV diuresis with lasix BID. - Currently requiring BiPAP in ED, admit to telemetry. - EKG without evidence of ischemia. - Will consult Dr. Lamar. - Etiology may be from viral URI. Will hold off on antibiotics due to frequent hospital admissions. Will send procalcitonin as well. - Patient has frequent admission; previously hospice has been discussed but patient declined. #IDDM - Continue home lantus and insulin sliding scale #Dyslipidemia - Continue home statin #HTN - Continue home beta abraham, hydralazine, nitrate. #NSVT - Previously given LifeVest but he isn't using it. It's just hanging in his closet. - Also has Eliquis which is new from last admission; unclear what this is for. Will continue for now. GI: PPI DVT: heparin Result Diagram: 07/30/18 1530 07/30/18 1530 HPI/ROS Admit Date/Time Admit Date/Time 30 July 2018 Hx of Present Illness Mr. Duncan is a 72 yo man with history of IDDM, CKD, CHF, NSVT, HTN, and CAD who presents in CHF exacerbation. Recently hospitalized here at [facility] for same, discharge 06/10. He reports at home he was near baseline until about the past 4-5 days ago he developed cough productive of yellow sputum. For past two nights he has had severe orthopnea and sleeps sitting up; and even then has frequent PND and needs to stand up to catch his breath. Today he had dizziness when standing. His son from [place] came to visit early this morning for Father's Day and when he arrived, the patient was very dyspneic at rest and asked to be brought to the emergency room. The son has been with him all day in the ED and plans to fly back to [facility]. Otherwise the patient does report compliance with all meds. In the ED the patient was afebrile, tachypenic to 30s, BP 167/79, saturating 99% on room air. Labs concerning for BNP to 20k and trop 0.039, hyperglycemic to 430, and CXR showed diffuse pulmonary edema. ROS He denies recent fevers, chills, night sweats, anorexia, weight loss, dysphagia, sore throat, palpitations, nausea, vomiting, abdominal pain, diarrhea, constipation, dysuria, hematuria, leg swelling. PMH/Family/Social Past Medical History CKD CHF NSVT, until recently had LifeVest IDDM HTN GERD CAD s/p stent Coded Allergies: Penicillins (Unverified Allergy, Mild, 07/30/18) Past Surgical History Past Surgical Hx: angioplasty Family History Significant Family History: no pertinent family hx Social History Lives alone in apartment. Has two sons; one in [place] the other in [place]. Alcohol Use: none Smoking Status: Former smoker Drug Use: none Exam/Review of Systems Vital Signs Vitals Vital Signs Date Temp Pulse Resp B/P (MAP) Pulse Ox O2 O2 Flow FiO2 Time Delivery Rate 07/30/18 61 100 30 17:06 07/30/18 98.6 24 152/95 BIPAP 16:49 (114) Exam Exam General: Frail elderly man sitting up in [facility] in mild respiratory distress. Head: Moist mucous membranes, clear oropharynx. Eyes: PERRL, no icterus. Neck: I do not appreciate any JVD with patient completely upright. Respiratory: Crackles bilaterally with diminished bibasilar breath sounds. Cardiovascular: regular rate and rhythm, no obvious murmurs Gastrointestinal: non-tender to palpation, bowel sounds heard. Ext: 1+ nonpitting edema, per patient this is baseline. Skin: warm dry well perfused ANGELIQUE ALVARES MD Jul 30, 2018 18:07
[2018-07-30] MEDS: FUROSEMIDE 40 MG INJ IV SCH (18:26)
[2018-07-30 18:32] VITALS: PULSE 61
[2018-07-30 19:58] VITALS: Ht 162.6 cm; Wt 80.0 kg
[2018-07-30 20:00] VITALS: PULSE 66
[2018-07-30] MEDS: INSULIN GLARGINE [LANTus] (100 UNITS/ML) SYG SC SCH (20:00)
[2018-07-30 20:51] VITALS: BP 146/76; PULSE 65; RESP 20
[2018-07-30] MEDS: APIXABAN 5 MG TABLET PO SCH (21:55)
[2018-07-30] MEDS: ATORVASTATIN 40 MG TAB PO SCH (21:55)
[2018-07-30] MEDS: HEPARIN 5,000 UNIT/1 ML VIAL SC SCH (21:58)
[2018-07-30] MEDS ORDERED: GLUCAGON 1 MG INJ IM PRN (22:00)
[2018-07-30] MEDS ORDERED: GLUCOSE GEL 15 GRAM TUBE BUCCAL PRN (22:00)
[2018-07-30] MEDS ORDERED: DEXTROSE 50% 50 ML SYRINGE IV PRN ×2 (22:00)
[2018-07-30] MEDS ORDERED: GLUCOSE GEL 15 GRAM TUBE PO PRN ×2 (22:00)
[2018-07-31] VITALS (14 sets, daily range): BP systolic 124–162; BP diastolic 66–86; PULSE 56–72; RESP 16–22
[2018-07-31] MEDS: ACCU-CHEK XX SCH (02:00)
[2018-07-31] MEDS: FUROSEMIDE 40 MG INJ IV SCH ×2 (06:18→17:22)
[2018-07-31] MEDS: HEPARIN 5,000 UNIT/1 ML VIAL SC SCH ×2 (06:19→21:34)
[2018-07-31] MEDS: INSULIN ASPART [NOVOLOG] 3 ML PEN SC SCH ×4 (08:00→20:20)
[2018-07-31] MEDS: THIAMINE 100 MG TAB PO SCH (08:36)
[2018-07-31] MEDS: ASPIRIN (EC) 81 MG TAB PO SCH (08:37)
[2018-07-31] MEDS: APIXABAN 5 MG TABLET PO SCH ×2 (08:37→20:13)
[2018-07-31] MEDS: ISOSORBIDE MONONITRATE(SR)30 MG TAB PO SCH (08:38)
--- NOTE | 2018-07-31 13:01 | PN ---
Date/Time of Note Date/Time of Note DATE: 07/31/18 TIME: 12:57 Assessment/Plan VTE Prophylaxis Risk score (from Ns)>0 risk: 3 SCD applied (from Ns): No SCD contraindicated: other Pharmacological prophylaxis: heparin Lines/Catheters IV [facility]from [facility] [place] Assessment/Plan Hospital Course S: Patient states that shortness breath symptoms are slightly improved, no acute events overnight. O: VS- see below PE: General: Frail elderly man sitting up in bed, no acute distress Head: Moist mucous membranes, clear oropharynx. Eyes: PERRL, no icterus. Neck: I do not appreciate any JVD with patient completely upright. Respiratory: Crackles bilaterally with diminished bibasilar breath sounds. Cardiovascular: regular rate and rhythm, no obvious murmurs Gastrointestinal: non-tender to palpation, bowel sounds heard. Ext: Trace pitting edema, per patient this is baseline. Assessment/Plan: 72 yo man with IDDM, CKD, HTN and CHF [facility] #Chronic congestive heart failure with acute exacerbation- Elevated BNP, pulmonary edema on CXR. Patient apparently was on BiPAP in the emergency room, presently off this- EKG without evidence of ischemia- Patient has frequent admission; previously hospice has been discussed but patient declined. -For now continue head elevation, IV diuresis with lasix BID. -We will recheck echocardiogram, and apparently cardiology consult is in process - Etiology may be from viral URI. Will hold off on antibiotics due to frequent hospital admissions. Will send procalcitonin as well. #IDDM: A1c was 10 - Continue home lantus and insulin sliding scale #Dyslipidemia - Continue home statin #HTN - Continue home beta abraham, hydralazine, nitrate. #NSVT- Previously given LifeVest but he isn't using it. Apparently it's just hanging in his closet- Also has Eliquis which is new from last admission; unclear what this is for. -Monitor, will continue Eliquis GI: PPI DVT: heparin Result Diagram: 07/31/18 0503 07/31/18 0503 Results 24hrs Laboratory Tests Test 07/30/18 15:30 07/30/18 15:33 07/30/18 16:34 07/30/18 18:31 White Blood Count 7.0 Red Blood Count 3.82 L Hemoglobin 9.9 L Hematocrit 31.4 L Mean Corpuscular 82.2 Volume Mean Corpuscular 25.9 L Hemoglobin Mean Corpuscular 31.5 L Hemoglobin Concent Red Cell 15.0 H Distribution Width Platelet Count 253 Mean Platelet Volume 10.1 Immature 0.100 Granulocytes % Neutrophils % 76.1 Lymphocytes % 7.7 L Monocytes % 10.0 Eosinophils % 5.0 Basophils % 1.1 Nucleated Red Blood 0.0 Cells % Immature 0.010 Granulocytes # Neutrophils # 5.3 Lymphocytes # 0.5 L Monocytes # 0.7 Eosinophils # 0.4 Basophils # 0.1 Nucleated Red Blood 0.0 Cells # Prothrombin Time 14.5 Prothrombin Time 1.1 Ratio INR International 1.12 Normalized Ratio Activated 35.0 Partial Thromboplast Time Sodium Level 134 L Potassium Level 3.8 Chloride Level 99 Carbon Dioxide Level 26 Anion Gap 9 Blood Urea Nitrogen 55 H Creatinine 2.39 H Est Glomerular Filtrat Rate mL/min Glucose Level 438 *H Calcium Level 9.1 Total Bilirubin 0.8 Direct Bilirubin 0.00 Indirect Bilirubin 0.8 Aspartate Amino 49 H Transf (AST/SGOT) Alanine 65 Aminotransferase (AL T/SGPT) Alkaline Phosphatase 140 H Troponin I 0.039 B-Type Natriuretic 83327 H Peptide Total Protein 6.1 Albumin 3.6 Globulin 2.50 Albumin/Globulin 1.44 Ratio Lipase 54 Procalcitonin 0.11 H Urine Color STRAW Urine Clarity CLEAR Urine pH 6.0 Urine Specific 1.007 Elliott Urine Ketones NEGATIVE Urine Nitrite NEGATIVE Urine Bilirubin NEGATIVE Urine Urobilinogen NEGATIVE Urine Leukocyte NEGATIVE Esterase Urine Microscopic 0 RBC Urine Microscopic 0 WBC Urine Hemoglobin NEGATIVE Urine Glucose 3+ H Urine Total Protein 2+ H Bedside Glucose 402 *H 264 H Test 07/30/18 20:50 07/31/18 05:03 07/31/18 08:01 07/31/18 12:06 Bedside Glucose 218 89 177 White Blood Count 8.0 Red Blood Count 3.63 L Hemoglobin 9.3 L Hematocrit 29.8 L Mean Corpuscular 82.1 Volume Mean Corpuscular 25.6 L Hemoglobin Mean Corpuscular 31.2 L Hemoglobin Concent Red Cell 15.0 H Distribution Width Platelet Count 299 Mean Platelet Volume 10.6 H Immature 0.400 Granulocytes % Neutrophils % 68.7 Lymphocytes % 10.5 L Monocytes % 12.8 H Eosinophils % 6.5 Basophils % 1.1 Nucleated Red Blood 0.0 Cells % Immature 0.030 Granulocytes # Neutrophils # 5.5 Lymphocytes # 0.8 Monocytes # 1.0 H Eosinophils # 0.5 Basophils # 0.1 Nucleated Red Blood 0.0 Cells # Sodium Level 140 Potassium Level 3.5 Chloride Level 103 Carbon Dioxide Level 28 Anion Gap 9 Blood Urea Nitrogen 59 H Creatinine 2.66 H Est Glomerular Filtrat Rate mL/min Glucose Level 87 # Hemoglobin A1c 10.0 H Calcium Level 9.1 Phosphorus Level 4.4 Magnesium Level 2.3 Total Bilirubin 0.8 Direct Bilirubin 0.00 Indirect Bilirubin 0.8 Aspartate Amino 33 Transf (AST/SGOT) Alanine 58 Aminotransferase (AL T/SGPT) Alkaline Phosphatase 103 Total Protein 5.9 L Albumin 3.3 Globulin 2.60 Albumin/Globulin 1.26 Ratio Thyroid Stimulating 3.120 Hormone (TSH) Exam/Review of Systems Exam Vitals Vital Signs Date Temp Pulse Resp B/P (MAP) Pulse Ox O2 O2 Flow FiO2 Time Delivery Rate 07/31/18 98.0 65 22 124/66 96 Room Air 2.0 11:18 (85) 07/30/18 30 17:06 Intake and Output 07/30/18 07/30/18 07/31/18 1515:00 23:00 07:00 IntakeIntake Total 300 ml OutputOutput Total 800 ml BalanceBalance -500 ml Results Results 24hrs Laboratory Tests Test 07/30/18 15:30 07/30/18 15:33 07/30/18 16:34 07/30/18 18:31 White Blood Count 7.0 Red Blood Count 3.82 L Hemoglobin 9.9 L Hematocrit 31.4 L Mean Corpuscular 82.2 Volume Mean Corpuscular 25.9 L Hemoglobin Mean Corpuscular 31.5 L Hemoglobin Concent Red Cell 15.0 H Distribution Width Platelet Count 253 Mean Platelet Volume 10.1 Immature 0.100 Granulocytes % Neutrophils % 76.1 Lymphocytes % 7.7 L Monocytes % 10.0 Eosinophils % 5.0 Basophils % 1.1 Nucleated Red Blood 0.0 Cells % Immature 0.010 Granulocytes # Neutrophils # 5.3 Lymphocytes # 0.5 L Monocytes # 0.7 Eosinophils # 0.4 Basophils # 0.1 Nucleated Red Blood 0.0 Cells # Prothrombin Time 14.5 Prothrombin Time 1.1 Ratio INR International 1.12 Normalized Ratio Activated 35.0 Partial Thromboplast Time Sodium Level 134 L Potassium Level 3.8 Chloride Level 99 Carbon Dioxide Level 26 Anion Gap 9 Blood Urea Nitrogen 55 H Creatinine 2.39 H Est Glomerular Filtrat Rate mL/min Glucose Level 438 *H Calcium Level 9.1 Total Bilirubin 0.8 Direct Bilirubin 0.00 Indirect Bilirubin 0.8 Aspartate Amino 49 H Transf (AST/SGOT) Alanine 65 Aminotransferase (AL T/SGPT) Alkaline Phosphatase 140 H Troponin I 0.039 B-Type Natriuretic 35625 H Peptide Total Protein 6.1 Albumin 3.6 Globulin 2.50 Albumin/Globulin 1.44 Ratio Lipase 54 Procalcitonin 0.11 H Urine Color STRAW Urine Clarity CLEAR Urine pH 6.0 Urine Specific 1.007 Elliott Urine Ketones NEGATIVE Urine Nitrite NEGATIVE Urine Bilirubin NEGATIVE Urine Urobilinogen NEGATIVE Urine Leukocyte NEGATIVE Esterase Urine Microscopic 0 RBC Urine Microscopic 0 WBC Urine Hemoglobin NEGATIVE Urine Glucose 3+ H Urine Total Protein 2+ H Bedside Glucose 402 *H 264 H Test 07/30/18 20:50 07/31/18 05:03 07/31/18 08:01 07/31/18 12:06 Bedside Glucose 218 89 177 White Blood Count 8.0 Red Blood Count 3.63 L Hemoglobin 9.3 L Hematocrit 29.8 L Mean Corpuscular 82.1 Volume Mean Corpuscular 25.6 L Hemoglobin Mean Corpuscular 31.2 L Hemoglobin Concent Red Cell 15.0 H Distribution Width Platelet Count 299 Mean Platelet Volume 10.6 H Immature 0.400 Granulocytes % Neutrophils % 68.7 Lymphocytes % 10.5 L Monocytes % 12.8 H Eosinophils % 6.5 Basophils % 1.1 Nucleated Red Blood 0.0 Cells % Immature 0.030 Granulocytes # Neutrophils # 5.5 Lymphocytes # 0.8 Monocytes # 1.0 H Eosinophils # 0.5 Basophils # 0.1 Nucleated Red Blood 0.0 Cells # Sodium Level 140 Potassium Level 3.5 Chloride Level 103 Carbon Dioxide Level 28 Anion Gap 9 Blood Urea Nitrogen 59 H Creatinine 2.66 H Est Glomerular Filtrat Rate mL/min Glucose Level 87 # Hemoglobin A1c 10.0 H Calcium Level 9.1 Phosphorus Level 4.4 Magnesium Level 2.3 Total Bilirubin 0.8 Direct Bilirubin 0.00 Indirect Bilirubin 0.8 Aspartate Amino 33 Transf (AST/SGOT) Alanine 58 Aminotransferase (AL T/SGPT) Alkaline Phosphatase 103 Total Protein 5.9 L Albumin 3.3 Globulin 2.60 Albumin/Globulin 1.26 Ratio Thyroid Stimulating 3.120 Hormone (TSH) Medications Medication Current Medications IV Flush (NS 3 ml) 3 ml PER PROTOCOL IV ; Start 07/30/18 at 18:00 Ondansetron HCl (Zofran Inj) 4 mg Q6H PRN IV NAUSEA/VOMITING; Start 07/30/18 at 18:00 Acetaminophen (Tylenol Tab) 650 mg Q6H PRN PO .PAIN 1-3 OR TEMP; Start 07/30/18 at 18:00 Apixaban (Eliquis) 2.5 mg BID PO Last administered on 07/31/18at 08:37; Admin Dose 2.5 MG; Start 07/30/18 at 21:00 Aspirin (Halfprin) 81 mg DAILY PO Last administered on 07/31/18at 08:37; Admin Dose 81 MG; Start 07/31/18 at 09:00 Atorvastatin Calcium (Lipitor) 40 mg QHS PO Last administered on 07/30/18at 21:55; Admin Dose 40 MG; Start 07/30/18 at 21:00 Carvedilol (Coreg) 6.25 mg BID PO Last administered on 07/31/18at 08:38; Admin Dose 6.25 MG; Start 07/30/18 at 21:00 Hydralazine HCl (Apresoline) 100 mg BID PO Last administered on 07/31/18at 08:39; Admin Dose 100 MG; Start 07/30/18 at 21:00 Isosorbide Mononitrate (Imdur) 30 mg DAILY PO Last administered on 07/31/18at 08:38; Admin Dose 30 MG; Start 07/31/18 at 09:00 Thiamine HCl (Vitamin B1) 100 mg DAILY PO Last administered on 07/31/18at 08:36; Admin Dose 100 MG; Start 07/31/18 at 09:00 Diagnostic Test (Pha) (Accu-Chek) 1 ea 02 XX Last administered on 07/31/18at 02:00; Admin Dose 1 EA; Start 07/31/18 at 02:00 Insulin Glargine (Lantus) 40 units DAILY@2000 SC Last administered on 07/30/18at 20:00; Admin Dose 40 UNITS; Start 07/30/18 at 20:00 Insulin Aspart (Novolog Insulin Pen) NOVOLOG *MODERATE* ALGORITHM WITH MEALS BEDTIME SC Last administered on 07/31/18at 12:12; Admin Dose 2 UNIT; Start 07/30/18 at 18:00 Furosemide (Lasix) 40 mg BID DIURETICS IV Last administered on 07/31/18at 06:18; Admin Dose 40 MG; Start 07/30/18 at 18:00 Miscellaneous Information 1 ea NOTE XX ; Start 07/30/18 at 22:00 Glucose (Glutose) 15 gm Q15M PRN PO DECREASED GLUCOSE; Start 07/30/18 at 22:00 Glucose (Glutose) 22.5 gm Q15M PRN PO DECREASED GLUCOSE; Start 07/30/18 at 22:00 Dextrose (D50w Syringe) 25 ml Q15M PRN IV DECREASED GLUCOSE; Start 07/30/18 at 22:00 Dextrose (D50w Syringe) 50 ml Q15M PRN IV DECREASED GLUCOSE; Start 07/30/18 at 22:00 Glucagon (Glucagen) 1 mg Q15M PRN IM DECREASED GLUCOSE; Start 07/30/18 at 22:00 Glucose (Glutose) 15 gm Q15M PRN BUCCAL DECREASED GLUCOSE; Start 07/30/18 at 22:00 Heparin Sodium (Porcine) (Heparin (5000 Units/1ml)) 5,000 unit Q12 SC ; Start 07/31/18 at 21:00 SOFI RENTERIA Jul 31, 2018 13:01
--- NOTE | 2018-07-31 15:12 | CONS ---
DATE OF ADMISSION: 07/30/2018 DATE OF CONSULTATION: 07/31/2018 TYPE OF CONSULTATION: Nephrology. REASON FOR CONSULTATION: Acute kidney injury, chronic kidney disease. PHYSICIAN REQUESTING CONSULT: Sofi Renteria MD HISTORY OF PRESENT ILLNESS: This is a 72-year-old male well known to me with a past medical history of CKD stage IV with a baseline creatinine around 2.5 to 3 mg/dL, a history of hypertension, diabetes , cardiomyopathy, history of BPH, gout, who presents to [facility] with shortness o f breath. The patient was previously on bypass in the hospital in May. At that time, patient was admitted for heart failure. The patient was treated with IV diuretics with clinical improvement and subsequently discharged home. The patient now presents back to the Emergency Room with tachypnea. U smooth arrival, patient was had laboratory data drawn, which showed a BNP of 20,000. Chest x-ray showed diffuse pulmonary edema. The patient was given diuretic therapy and admitted to telemetry for evalu ation. In terms of patient's renal history, the patient has underlying chronic kidney disease stage IV with previous baseline creatinine 2.5 to 3 mg/dL. On current admission, the patient's creatinine was 2.66 mg/dL. The patient himself denies any hemoptysis, hematemesis, hematochezia, any rashes, any frothy urine. PAST MEDICAL HISTORY: As stated above, history of chronic kidney disease stage IV, history of cardio myopathy, history of diabetes, history of hypertension, BPH, gout. PAST SURGICAL HISTORY: Has been reviewed. ALLERGIES: PENICILLIN. FAMILY HISTORY: No family history of kidney disease. SOCIAL HISTORY: Does not drink, smoke or do drugs. MEDICATIONS: The patient's medications have been reviewed. REVIEW OF SYSTEMS: A 14-point review of systems was conducted. Pertinent positives stated in HPI, o therwise negative. PHYSICAL EXAMINATION: VITAL SIGNS: Blood pressure is 124/66, respirations 22, pulse 65, temperature 98.0. HEENT: Head is normocephalic. Pupils are reactive to light. NECK: Positive JVD. HEART: Regular rate. LUNGS: Show diminished breath sounds at base. ABDOMEN: Soft, nontender to palpation without rebound or guarding. EXTREMITIES: Negative for clubbing, cyanosis, no edema. DERMATOLOGIC: No rashes. MUSCULOSKELETAL: No joint effusion. NEUROLOGIC: No focal deficits. LABORATORY DATA: Has been reviewed. IMAGING STUDIES: Have been reviewed. IMPRESSION AND PLAN: This is a 72-year-old male who presents with: 1. Nonoliguric acute kidney injury on top of chronic kidney disease, stage IV, with previous baselin e creatinine around 2.5 to 3 .0 mg/dL. Etiology of current acute kidney injury is secondary to hemod ynamics, possible cardiorenal syndrome. The patient's renal function is near or at baseline. Recomm endation at this point is to repeat a UA with microanalysis. We will check urine electrolytes, quant cha patient's proteinuria. The patient's initial urinalysis showed no evidence of active sediment. Agree with current diuretic regimen. We will monitor electrolytes and renal function closely. 2. Volume overload secondary to acute decompensated heart failure and chronic kidney disease. Would continue current medical management. Continue diuretic regimen. Monitor electrolytes and renal fun ction closely. 3. Anemia. Monitor hemoglobin and hematocrit levels. 4. Mineral bone disorder, monitor calcium and phosphorus levels. 5. Acute hypoxic respiratory failure secondary to congestive heart failure. Continue current diuret ic regimen. Continue supplemental oxygen as needed. 6. Hypertension. Continue current blood pressure regimen. 7. History of coronary artery disease. Continue medical management. 8. Dyslipidemia. Continue statin therapy. 9. History of arrhythmia, previously given LifeVest. The patient is not using it. Continue to [facility]. Thank you, Dr. Renteria, for this interesting consult. It will be a pleasure to follow patient with you throughout the hospital course. Dictated By: CHRISTOPHER MARIO DO NR/NTS Conf#: [id number] DID#: [id number] CC: SOFI RENTERIA; ANGELIQUE ALVARES MD;*EndCC*
--- NOTE | 2018-07-31 16:04 | RADRPT ---
Echocardiogram Report Patient Name: CHESTER GRAHAMPatient ID: [id number] : 4 (72y 11m)Study Date: 07/31/2018 2:02:35 PM Gender: MAccession #: [id number] Tech: Cristoferrajat Dia [facility] Location: [address] Ref.Physician: SOFI RENTERIA Height(Cm): BSA: Weight(Kg): Quality: AdequateOrder Physician: SOFI RENTERIA Account #: Procedures: Echocardiographic Report: Transthoracic echocardiogram with complete 2D, M-Mode, and doppler examination. Indications: Hx of CM. Measurements: 2D/M Mode Doppler Measurement Value Normal Range Measurement Value Normal Range LVIDd 2D 6.3 [ 4.2 - 5.8 ] cm AV Peak Thaddeus 1.4 [ 100.0 - 170.0 ] cm/sec LVIDs 2D 5.6 [ 2.5 - 4.0 ] cm AV Peak PG 8.0 [ 2.0 - 9.0 ] mmHg LVPWd 2D 1.2 [ 0.6 - 1.0 ] cm LVOT Peak Thaddeus 0.8 [ 70.0 - 110.0 ] cm/sec IVSd 2D 1.2 [ 0.6 - 1.0 ] cm LVOT Peak PG 2.0 [ 2.0 - 6.0 ] mmHg AoR Diam 2D 2.5 [ 2.6 - 3.4 ] cm MV E Peak Thaddeus 1.0 [ 60.0 - 130.0 ] cm/sec EDV 2D 199.0 [ 62.0 - 150.0 ] ml MV A Peak Thaddeus 0.4 [ 100.0 - 120.0 ] cm/sec ESV 2D 155.0 [ 21.0 - 61.0 ] ml MV E/A 2.2 [ 0.8 - 1.5 ] ratio EF 2D 22.1 [ 52.0 - 72.0 ] percent MV Decel Time 225 [ 104 - 258 ] msec LA Dimen 2D 4.7 [ 3.0 - 4.0 ] cm Lat E` Thaddeus 0.0 [ 10.0 - 15.0 ] cm/sec Lateral E/E` 24.4 [ 1.0 - 2.0 ] ratio Med E` Thaddeus 0.0 cm/sec MV E/A 2.2 [ 0.8 - 1.5 ] ratio TR Peak Thaddeus 1.7 [ 100.0 - 280.0 ] cm/sec TR Peak PG 12.0 mmHg RVSP 22.0 [ 10.0 - 36.0 ] mmHg Findings: Left Ventricle: Mild concentric left ventricular hypertrophy. Moderate enlargement of left ventricle cavity. Severe global left ventricular systolic dysfunction. Ejection fraction is visually estimated at 20-25 %. Tissue Doppler/Mitral Doppler indices are consistent with restrictive physiology with markedly elevated left atrial pressure (Stage III-IV diastolic dysfunction). Right Ventricle: Normal right ventricular size. Mild right ventricular hypokinesis. Left Atrium: There is moderate enlargement of left atrium. Right Atrium: The right atrium is normal in size. Mitral Valve: Mild mitral leaflet calcification. Mild mitral annular calcification. Moderate to severe mitral valve regurgitation. Aortic Valve: No hemodynamically significant aortic stenosis by doppler. Aortic cusps appear mildly calcified. Trace aortic valve regurgitation. Tricuspid Valve: Normal appearance of the tricuspid valve. The estimated Peak RVSP is 22 mmHg. There is trace tricuspid regurgitation. Pericardium: Trivial pericardial effusion. Left pleural effusion seen. Aorta: Normal aortic root. IVC: Normal size and normal respiratory collapse consistent with normal right atrial pressure. Conclusions: Mild concentric left ventricular hypertrophy. Moderate enlargement of left ventricle cavity. Severe global left ventricular systolic dysfunction. Ejection fraction is visually estimated at 20-25 %. Tissue Doppler/Mitral Doppler indices are consistent with restrictive physiology with markedly elevated left atrial pressure (Stage III-IV diastolic dysfunction). There is moderate enlargement of left atrium. Mild mitral leaflet calcification. Mild mitral annular calcification. Moderate to severe mitral valve regurgitation. No hemodynamically significant aortic stenosis by doppler. Aortic cusps appear mildly calcified. Trace aortic valve regurgitation. Normal appearance of the tricuspid valve. The estimated Peak RVSP is 22 mmHg. There is trace tricuspid regurgitation. Electronically Signed By: Ezio Felix 2018-07-31 16:03:43 PDT
--- NOTE | 2018-07-31 18:47 | CONS ---
Assessment/Plan Assessment/Plan Assessment/Plan (Daily) Acute systolic CHF wiht an ef 20-25% HTN NSVT HLP DM CKD NSVT -continue IV lasix -was given a Life vest - noncompliant -on eliquis for an ucnlear reason -possible cardiolyte once euvolemic -possible bivaicd in the future Consultation Date/Type/Reason Admit Date/Time 30 July 2018 Type of Consult Cardiology Date/Time of Note DATE: 07/31/18 TIME: 18:40 Hx of Present Illness This is a 72-year-old male well known to me with a past medical history of CKD stage IV with a baseline creatinine around 2.5 to 3 mg/dL, a history of hypertension, diabetes, cardiomyopathy, history of BPH, gout, who presents to [facility] with shortness of breath. The patient was previously on bypass in the hospital in May. At that time, patient was admitted for heart failure. The patient was treated with IV diuretics with clinical improvement and subsequently discharged home. The patient now presents back to the Emergency Room with tachypnea. Upon arrival, patient was had laboratory data drawn, which showed a BNP of 20,000. Chest x-ray showed diffuse pulmonary edema. The patient was given diuretic therapy and admitted to telemetry for evaluation. currently imporved and stable Past Medical History Home Meds Active Scripts Thiamine* (Thiamine*) 100 Mg Tablet, 100 MG PO DAILY for 30 Days, #30 TAB Prov:CHUY HORTON MD 04/01/18 Reported Medications Liraglutide (Victoza 3-Donnie) 0.6 Mg/0.1 Ml Pen.injctr, 1.8 MG SQ BID, SYR 07/30/18 Doddridge-3 Acid Ethyl Esters (Lovaza) 1 Gm Capsule, 2 GM PO BID, CAP 07/30/18 Furosemide* (Furosemide*) 40 Mg Tablet, 40 MG PO DAILY, TAB 07/30/18 Apixaban* (Eliquis*) 2.5 Mg Tablet, 2.5 MG PO BID, TAB 06/07/18 Carvedilol* (Carvedilol*) 6.25 Mg Tablet, 6.25 MG PO BID, #60 TAB 06/07/18 Hydralazine Hcl* (Hydralazine Hcl*) 100 Mg Tablet, 100 MG PO BID, #90 TAB 06/07/18 Isosorbide Mononitrate* (Isosorbide Mononitrate*) 30 Mg Tab.er.24h, 30 MG PO DAILY, TAB 03/20/18 Aspirin* (Aspirin* EC) 81 Mg Tablet.dr, 81 MG PO DAILY, TAB 03/04/18 Insulin Glargine,Hum.rec.anlog (Chhaya Wingostar) 300 Unit/1 Ml Insuln.pen, 42 UNIT SQ QPM, EA 03/04/18 Atorvastatin* (Atorvastatin*) 40 Mg Tablet, 40 MG PO QHS, #30 TAB 03/04/18 Discontinued Scripts Guaifenesin-Dextromethorphan* (Robitussin* DM) 100MG/10MG/5ML Syrup, 10 ML PO Q6H PRN for COUGH MDD 4 for 10 Days, #1 ML Prov:CHUY HORTON MD 06/10/18 Albuterol Sulfate (Proair Respiclick) 90 Mcg Aer.pow.ba, 2 PUFFS INHALATION Q4H WHILE AWAKE PRN for SHORTNESS OF BREATH MDD 6 for 1 Day, BOTTLE 2 Refills Prov:CHUY HORTON MD 06/10/18 Methylprednisolone* (Medrol* DOSE PACK) 4 Mg/Dose-Pack Tab.ds.pk, 4 MG PO . DIRECTED for 4 Days, PACKET Dispense 1 packet Prov:CHUY HORTON MD 06/10/18 Acetaminophen* (Tylenol*) 325 Mg Tablet, 650 MG PO Q6H PRN for .PAIN 1-3 OR TEMP for 7 Days, TAB Prov:CHUY HORTON MD 06/10/18 Famotidine* (Famotidine*) 20 Mg Tablet, 20 MG PO DAILY, #15 TAB otc Prov:CHUY HORTON MD 05/11/18 Furosemide* (Furosemide*) 40 Mg Tablet, 40 MG PO DAILY for 14 Days, #14 TAB Prov:CHUY HORTON MD 05/11/18 Acetaminophen* (Tylenol*) 325 Mg Tablet, 650 MG PO Q6H PRN for .PAIN 1-3 OR TEMP for 1 Day, #1 TAB Prov:CHUY HORTON MD 05/11/18 Doddridge-3/Dha/Epa/Fish Oil (FISH OIL EC 1,000 MG SOFTGEL) 1 Each Capsule.dr, 2000 MG PO BID, #30 CAP Prov:JAD SHIN PULP GRINDER 03/03/17 Medications Current Medications IV Flush (NS 3 ml) 3 ml PER PROTOCOL IV ; Start 07/30/18 at 18:00 Ondansetron HCl (Zofran Inj) 4 mg Q6H PRN IV NAUSEA/VOMITING; Start 07/30/18 at 18:00 Acetaminophen (Tylenol Tab) 650 mg Q6H PRN PO .PAIN 1-3 OR TEMP; Start 07/30/18 at 18:00 Apixaban (Eliquis) 2.5 mg BID PO Last administered on 07/31/18 08:37; Admin Dose 2.5 MG; Start 07/30/18 at 21:00 Aspirin (Halfprin) 81 mg DAILY PO Last administered on 07/31/18 08:37; Admin Dose 81 MG; Start 07/31/18 at 09:00 Atorvastatin Calcium (Lipitor) 40 mg QHS PO Last administered on 07/30/18at 21:55; Admin Dose 40 MG; Start 07/30/18 at 21:00 Carvedilol (Coreg) 6.25 mg BID PO Last administered on 07/31/18 08:38; Admin Dose 6.25 MG; Start 07/30/18 at 21:00 Hydralazine HCl (Apresoline) 100 mg BID PO Last administered on 07/31/18 08:39; Admin Dose 100 MG; Start 07/30/18 at 21:00 Isosorbide Mononitrate (Imdur) 30 mg DAILY PO Last administered on 07/31/18 08:38; Admin Dose 30 MG; Start 07/31/18 at 09:00 Thiamine HCl (Vitamin B1) 100 mg DAILY PO Last administered on 07/31/18 08:36; Admin Dose 100 MG; Start 07/31/18 at 09:00 Diagnostic Test (Pha) (Accu-Chek) 1 ea 02 XX Last administered on 07/31/18at 02:00; Admin Dose 1 EA; Start 07/31/18 at 02:00 Insulin Glargine (Lantus) 40 units DAILY@2000 SC Last administered on 07/30/18at 20:00; Admin Dose 40 UNITS; Start 07/30/18 at 20:00 Insulin Aspart (Novolog Insulin Pen) NOVOLOG *MODERATE* ALGORITHM WITH MEALS BEDTIME SC Last administered on 07/31/18at 17:30; Admin Dose 4 UNIT; Start 07/30/18 at 18:00 Furosemide (Lasix) 40 mg BID DIURETICS IV Last administered on 07/31/18at 17:22; Admin Dose 40 MG; Start 07/30/18 at 18:00 Miscellaneous Information 1 ea NOTE XX ; Start 07/30/18 at 22:00 Glucose (Glutose) 15 gm Q15M PRN PO DECREASED GLUCOSE; Start 07/30/18 at 22:00 Glucose (Glutose) 22.5 gm Q15M PRN PO DECREASED GLUCOSE; Start 07/30/18 at 22:00 Dextrose (D50w Syringe) 25 ml Q15M PRN IV DECREASED GLUCOSE; Start 07/30/18 at 22:00 Dextrose (D50w Syringe) 50 ml Q15M PRN IV DECREASED GLUCOSE; Start 07/30/18 at 22:00 Glucagon (Glucagen) 1 mg Q15M PRN IM DECREASED GLUCOSE; Start 07/30/18 at 22:00 Glucose (Glutose) 15 gm Q15M PRN BUCCAL DECREASED GLUCOSE; Start 07/30/18 at 22:00 Heparin Sodium (Porcine) (Heparin (5000 Units/1ml)) 5,000 unit Q12 SC ; Start 07/31/18 at 21:00 Allergies: Coded Allergies: Penicillins (Unverified Allergy, Mild, 07/30/18) Past Surgical History Past Surgical Hx: angioplasty Social History Alcohol Use: none Smoking Status: Current every day smoker Drug Use: none Exam/Review of Systems Vital Signs Vitals Vital Signs Date Temp Pulse Resp B/P (MAP) Pulse Ox O2 O2 Flow FiO2 Time Delivery Rate 07/31/18 71 132/71 18:31 (91) 07/31/18 98.0 22 96 Room Air 2.0 17:04 07/30/18 30 17:06 Intake and Output 07/30/18 07/30/18 07/31/18 1515:00 23:00 07:00 IntakeIntake Total 300 ml OutputOutput Total 800 ml BalanceBalance -500 ml Labs Result Diagram: 07/31/18 0503 07/31/18 0503 Results 24hrs Laboratory Tests Test 07/30/18 20:50 07/31/18 05:03 07/31/18 08:01 07/31/18 12:06 Bedside Glucose 218 89 177 White Blood Count 8.0 Red Blood Count 3.63 L Hemoglobin 9.3 L Hematocrit 29.8 L Mean Corpuscular 82.1 Volume Mean Corpuscular 25.6 L Hemoglobin Mean Corpuscular 31.2 L Hemoglobin Concent Red Cell 15.0 H Distribution Width Platelet Count 299 Mean Platelet Volume 10.6 H Immature 0.400 Granulocytes % Neutrophils % 68.7 Lymphocytes % 10.5 L Monocytes % 12.8 H Eosinophils % 6.5 Basophils % 1.1 Nucleated Red Blood 0.0 Cells % Immature 0.030 Granulocytes # Neutrophils # 5.5 Lymphocytes # 0.8 Monocytes # 1.0 H Eosinophils # 0.5 Basophils # 0.1 Nucleated Red Blood 0.0 Cells # Sodium Level 140 Potassium Level 3.5 Chloride Level 103 Carbon Dioxide Level 28 Anion Gap 9 Blood Urea Nitrogen 59 H Creatinine 2.66 H Est Glomerular Filtrat Rate mL/min Glucose Level 87 # Hemoglobin A1c 10.0 H Calcium Level 9.1 Phosphorus Level 4.4 Magnesium Level 2.3 Total Bilirubin 0.8 Direct Bilirubin 0.00 Indirect Bilirubin 0.8 Aspartate Amino 33 Transf (AST/SGOT) Alanine 58 Aminotransferase (AL T/SGPT) Alkaline Phosphatase 103 Total Protein 5.9 L Albumin 3.3 Globulin 2.60 Albumin/Globulin 1.26 Ratio Thyroid Stimulating 3.120 Hormone (TSH) Test 07/31/18 17:20 07/31/18 17:21 Urine Random 30.17 Creatinine Urine Random Sodium 82 Urine Total Protein 116.0 H Bedside Glucose 208 Medications Medications Current Medications IV Flush (NS 3 ml) 3 ml PER PROTOCOL IV ; Start 07/30/18 at 18:00 Ondansetron HCl (Zofran Inj) 4 mg Q6H PRN IV NAUSEA/VOMITING; Start 07/30/18 at 18:00 Acetaminophen (Tylenol Tab) 650 mg Q6H PRN PO .PAIN 1-3 OR TEMP; Start 07/30/18 at 18:00 Apixaban (Eliquis) 2.5 mg BID PO Last administered on 07/31/18at 08:37; Admin Dose 2.5 MG; Start 07/30/18 at 21:00 Aspirin (Halfprin) 81 mg DAILY PO Last administered on 07/31/18 08:37; Admin Dose 81 MG; Start 07/31/18 at 09:00 Atorvastatin Calcium (Lipitor) 40 mg QHS PO Last administered on 07/30/18at 21:55; Admin Dose 40 MG; Start 07/30/18 at 21:00 Carvedilol (Coreg) 6.25 mg BID PO Last administered on 07/31/18 08:38; Admin Dose 6.25 MG; Start 07/30/18 at 21:00 Hydralazine HCl (Apresoline) 100 mg BID PO Last administered on 07/31/18at 08:39; Admin Dose 100 MG; Start 07/30/18 at 21:00 Isosorbide Mononitrate (Imdur) 30 mg DAILY PO Last administered on 07/31/18 08:38; Admin Dose 30 MG; Start 07/31/18 at 09:00 Thiamine HCl (Vitamin B1) 100 mg DAILY PO Last administered on 07/31/18at 08:36; Admin Dose 100 MG; Start 07/31/18 at 09:00 Diagnostic Test (Pha) (Accu-Chek) 1 ea 02 XX Last administered on 07/31/18at 02:00; Admin Dose 1 EA; Start 07/31/18 at 02:00 Insulin Glargine (Lantus) 40 units DAILY@2000 SC Last administered on 07/30/18at 20:00; Admin Dose 40 UNITS; Start 07/30/18 at 20:00 Insulin Aspart (Novolog Insulin Pen) NOVOLOG *MODERATE* ALGORITHM WITH MEALS BEDTIME SC Last administered on 07/31/18at 17:30; Admin Dose 4 UNIT; Start 07/30/18 at 18:00 Furosemide (Lasix) 40 mg BID DIURETICS IV Last administered on 07/31/18at 17:22; Admin Dose 40 MG; Start 07/30/18 at 18:00 Miscellaneous Information 1 ea NOTE XX ; Start 07/30/18 at 22:00 Glucose (Glutose) 15 gm Q15M PRN PO DECREASED GLUCOSE; Start 07/30/18 at 22:00 Glucose (Glutose) 22.5 gm Q15M PRN PO DECREASED GLUCOSE; Start 07/30/18 at 22: 00 Dextrose (D50w Syringe) 25 ml Q15M PRN IV DECREASED GLUCOSE; Start 07/30/18 at 22:00 Dextrose (D50w Syringe) 50 ml Q15M PRN IV DECREASED GLUCOSE; Start 07/30/18 at 22:00 Glucagon (Glucagen) 1 mg Q15M PRN IM DECREASED GLUCOSE; Start 07/30/18 at 22:00 Glucose (Glutose) 15 gm Q15M PRN BUCCAL DECREASED GLUCOSE; Start 07/30/18 at 22:00 Heparin Sodium (Porcine) (Heparin (5000 Units/1ml)) 5,000 unit Q12 SC ; Start 07/31/18 at 21:00 PAIGE BRAND MD Jul 31, 2018 18:47
[2018-07-31] MEDS: ATORVASTATIN 40 MG TAB PO SCH (20:13)
[2018-07-31] MEDS: INSULIN GLARGINE [LANTus] (100 UNITS/ML) SYG SC SCH (20:20)
[2018-08-01] VITALS (11 sets, daily range): BP systolic 114–163; BP diastolic 6–74; PULSE 58–67; RESP 18–20
[2018-08-01] MEDS: ACCU-CHEK XX SCH (02:00)
[2018-08-01] MEDS: FUROSEMIDE 40 MG INJ IV SCH ×2 (06:22→17:26)
[2018-08-01] MEDS: ASPIRIN (EC) 81 MG TAB PO SCH (08:26)
[2018-08-01] MEDS: ISOSORBIDE MONONITRATE(SR)30 MG TAB PO SCH (08:27)
[2018-08-01] MEDS: APIXABAN 5 MG TABLET PO SCH ×2 (08:27→20:30)
[2018-08-01] MEDS: THIAMINE 100 MG TAB PO SCH (08:27)
[2018-08-01] MEDS: INSULIN ASPART [NOVOLOG] 3 ML PEN SC SCH ×4 (08:49→21:01)
[2018-08-01] MEDS: HEPARIN 5,000 UNIT/1 ML VIAL SC SCH ×2 (09:07→21:01)
--- NOTE | 2018-08-01 11:46 | PN ---
Date/Time of Note Date/Time of Note DATE: 08/01/18 TIME: 11:42 Assessment/Plan VTE Prophylaxis Risk score (from Ns)>0 risk: 6 SCD applied (from Ns): No SCD contraindicated: other Pharmacological prophylaxis: apixaban Lines/Catheters [facility] Saline Lock Assessment/Plan Hospital Course S: Patient seen by renal and cardiology team yesterday, has less shortness of breath symptoms today.. O: VS- see below PE: General: Frail elderly man sitting up in bed, no acute distress Head: Moist mucous membranes, clear oropharynx. Eyes: PERRL, no icterus. Neck: Supple Respiratory: Less crackles bilaterally with slightly less diminished bibasilar breath sounds. Cardiovascular: regular rate and rhythm, no obvious murmurs Gastrointestinal: non-tender to palpation, bowel sounds heard. Ext: Trace pitting edema, per patient this is baseline. 2D echo July 31, 2018: Conclusions: Mild concentric left ventricular hypertrophy. Moderate enlargement of left ventricle cavity. Severe global left ventricular systolic dysfunction. Ejection fraction is visually estimated at 20-25 %. Tissue Doppler/Mitral Doppler indices are consistent with restrictive physiology with markedly elevated left atrial pressure (Stage III-IV diastolic dysfunction). There is moderate enlargement of left atrium. Mild mitral leaflet calcification. Mild mitral annular calcification. Moderate to severe mitral valve regurgitation. No hemodynamically significant aortic stenosis by doppler. Aortic cusps appear mildly calcified. Trace aortic valve regurgitation. Normal appearance of the tricuspid valve. The estimated Peak RVSP is 22 mmHg. There is trace tricuspid regurgitation. Assessment/Plan: 72 yo man with IDDM, CKD, HTN and CHF presenting in ex acerbation. #Chronic congestive heart failure with acute exacerbation- Elevated BNP, pulmonary edema on CXR. Patient apparently was on BiPAP in the emergency room, presently off this- EKG without evidence of ischemia- Patient has frequent admission; previously hospice has been discussed but patient declined. - For now continue head elevation, IV diuresis with lasix BID. - Follow further cardiology recs, repeat echo results reviewed #IDDM: A1c was 10, sugars presently stable - Continue home lantus and insulin sliding scale #Dyslipidemia - Continue home statin #HTN - Continue home beta abraham, hydralazine, nitrate. #NSVT- Previously given LifeVest but he isn't using it. Apparently it's just hanging in his closet- Also has Eliquis which is new from last admission; unclear what this is for. -Monitor, will continue Eliquis GI: PPI Result Diagram: 08/01/18 0510 08/01/18 0510 Results 24hrs Laboratory Tests Test 07/31/18 12:06 07/31/18 17:20 07/31/18 17:21 07/31/18 20:10 Bedside Glucose 177 208 294 H Urine Random 30.17 Creatinine Urine Random Sodium 82 Urine Total Protein 116.0 H Test 08/01/18 01:25 08/01/18 01:48 08/01/18 02:07 08/01/18 05:10 Bedside Glucose 68 L 109 158 White Blood Count 8.5 Red Blood Count 3.76 L Hemoglobin 9.6 L Hematocrit 31.0 L Mean Corpuscular 82.4 Volume Mean Corpuscular 25.5 L Hemoglobin Mean Corpuscular 31.0 L Hemoglobin Concent Red Cell 15.3 H Distribution Width Platelet Count 268 Mean Platelet Volume 10.7 H Immature 0.400 Granulocytes % Neutrophils % 80.4 H Lymphocytes % 7.3 L Monocytes % 8.6 Eosinophils % 2.4 Basophils % 0.9 Nucleated Red Blood 0.0 Cells % Immature 0.030 Granulocytes # Neutrophils # 6.8 Lymphocytes # 0.6 L Monocytes # 0.7 Eosinophils # 0.2 Basophils # 0.1 Nucleated Red Blood 0.0 Cells # Sodium Level 137 Potassium Level 3.4 L Chloride Level 98 Carbon Dioxide Level 27 Anion Gap 12 Blood Urea Nitrogen 63 H Creatinine 2.58 H Est Glomerular Filtrat Rate mL/min Glucose Level 268 #H Calcium Level 8.5 Phosphorus Level 4.5 Magnesium Level 2.2 Test 08/01/18 07:46 Bedside Glucose 261 H Exam/Review of Systems Exam Vitals Vital Signs Date Temp Pulse Resp B/P (MAP) Pulse Ox O2 O2 Flow FiO2 Time Delivery Rate 08/01/18 97.8 63 20 114/63 96 Room Air 11:34 (80) 08/01/18 2.0 07:41 07/30/18 30 17:06 Intake and Output 07/31/18 07/31/18 08/01/18 1515:00 23:00 07:00 IntakeIntake Total 1050 ml 600 ml OutputOutput Total 900 ml 1600 ml BalanceBalance 150 ml -1000 ml Results Results 24hrs Laboratory Tests Test 07/31/18 12:06 07/31/18 17:20 07/31/18 17:21 07/31/18 20:10 Bedside Glucose 177 208 294 H Urine Random 30.17 Creatinine Urine Random Sodium 82 Urine Total Protein 116.0 H Test 08/01/18 01:25 08/01/18 01:48 08/01/18 02:07 08/01/18 05:10 Bedside Glucose 68 L 109 158 White Blood Count 8.5 Red Blood Count 3.76 L Hemoglobin 9.6 L Hematocrit 31.0 L Mean Corpuscular 82.4 Volume Mean Corpuscular 25.5 L Hemoglobin Mean Corpuscular 31.0 L Hemoglobin Concent Red Cell 15.3 H Distribution Width Platelet Count 268 Mean Platelet Volume 10.7 H Immature 0.400 Granulocytes % Neutrophils % 80.4 H Lymphocytes % 7.3 L Monocytes % 8.6 Eosinophils % 2.4 Basophils % 0.9 Nucleated Red Blood 0.0 Cells % Immature 0.030 Granulocytes # Neutrophils # 6.8 Lymphocytes # 0.6 L Monocytes # 0.7 Eosinophils # 0.2 Basophils # 0.1 Nucleated Red Blood 0.0 Cells # Sodium Level 137 Potassium Level 3.4 L Chloride Level 98 Carbon Dioxide Level 27 Anion Gap 12 Blood Urea Nitrogen 63 H Creatinine 2.58 H Est Glomerular Filtrat Rate mL/min Glucose Level 268 #H Calcium Level 8.5 Phosphorus Level 4.5 Magnesium Level 2.2 Test 08/01/18 07:46 Bedside Glucose 261 H Medications Medication Current Medications IV Flush (NS 3 ml) 3 ml PER PROTOCOL IV ; Start 07/30/18 at 18:00 Ondansetron HCl (Zofran Inj) 4 mg Q6H PRN IV NAUSEA/VOMITING; Start 07/30/18 at 18:00 Acetaminophen (Tylenol Tab) 650 mg Q6H PRN PO .PAIN 1-3 OR TEMP; Start 07/30/18 at 18:00 Apixaban (Eliquis) 2.5 mg BID PO Last administered on 08/01/18at 08:27; Admin Dose 2.5 MG; Start 07/30/18 at 21:00 Aspirin (Halfprin) 81 mg DAILY PO Last administered on 08/01/18at 08:26; Admin Dose 81 MG; Start 07/31/18 at 09:00 Atorvastatin Calcium (Lipitor) 40 mg QHS PO Last administered on 07/31/18 20:13; Admin Dose 40 MG; Start 07/30/18 at 21:00 Carvedilol (Coreg) 6.25 mg BID PO Last administered on 08/01/18 08:27; Admin Dose 6.25 MG; Start 07/30/18 at 21:00 Hydralazine HCl (Apresoline) 100 mg BID PO Last administered on 08/01/18 08:26; Admin Dose 100 MG; Start 07/30/18 at 21:00 Isosorbide Mononitrate (Imdur) 30 mg DAILY PO Last administered on 08/01/18 08:27; Admin Dose 30 MG; Start 07/31/18 at 09:00 Thiamine HCl (Vitamin B1) 100 mg DAILY PO Last administered on 08/01/18 08:27; Admin Dose 100 MG; Start 07/31/18 at 09:00 Diagnostic Test (Pha) (Accu-Chek) 1 ea 02 XX Last administered on 07/31/18at 02:00; Admin Dose 1 EA; Start 07/31/18 at 02:00 Insulin Glargine (Lantus) 40 units DAILY@2000 SC Last administered on 07/31/18 20:20; Admin Dose 40 UNITS; Start 07/30/18 at 20:00 Insulin Aspart (Novolog Insulin Pen) NOVOLOG *MODERATE* ALGORITHM WITH MEALS BEDTIME SC Last administered on 08/01/18 08:49; Admin Dose 8 UNIT; Start 07/30/18 at 18:00 Furosemide (Lasix) 40 mg BID DIURETICS IV Last administered on 08/01/18 06:22; Admin Dose 40 MG; Start 07/30/18 at 18:00 Miscellaneous Information 1 ea NOTE XX ; Start 07/30/18 at 22:00 Glucose (Glutose) 15 gm Q15M PRN PO DECREASED GLUCOSE; Start 07/30/18 at 22:00 Glucose (Glutose) 22.5 gm Q15M PRN PO DECREASED GLUCOSE; Start 07/30/18 at 22:00 Dextrose (D50w Syringe) 25 ml Q15M PRN IV DECREASED GLUCOSE; Start 07/30/18 at 22:00 Dextrose (D50w Syringe) 50 ml Q15M PRN IV DECREASED GLUCOSE; Start 07/30/18 at 22:00 Glucagon (Glucagen) 1 mg Q15M PRN IM DECREASED GLUCOSE; Start 07/30/18 at 22:00 Glucose (Glutose) 15 gm Q15M PRN BUCCAL DECREASED GLUCOSE; Start 07/30/18 at 22:00 Heparin Sodium (Porcine) (Heparin (5000 Units/1ml)) 5,000 unit Q12 SC Last administered on 08/01/18at 09:07; Admin Dose 5,000 UNIT; Start 07/31/18 at 21:00 SOFI RENTERIA Aug 01, 2018 11:46
[2018-08-01] MEDS ORDERED: POTASSIUM CHLORIDE (SR) 20 MEQ TAB PO STA (12:24)
--- NOTE | 2018-08-01 16:19 | CONS ---
Assessment/Plan Assessment/Plan Hospital Course (Demo Recall) Acute decompensated systolic congestive heart failure Cardia myopathy with ejection fraction 25-30% Mild to moderate coronary artery disease left heart catheterization January 2016 History of ventricular tachycardia, with LifeVest CKD Hypertension Continue beta-abraham and titrate as heart rate and blood pressure permits Continue afterload reducing agent given severe cardia myopathy Diuretics as per nephrology Maintain potassium above 4.0 and magnesium above 2.0 Consultation Date/Type/Reason Admit Date/Time Jul 30, 2018 at 16:26 Initial Consult Date Type of Consult Cardiology Date/Time of Note DATE: 08/01/18 TIME: 16:17 24 HR Interval Summary Free Text/Dictation Shortness of breath is better. No chest pains, palpitation Exam/Review of Systems Vital Signs Vitals Vital Signs Date Temp Pulse Resp B/P (MAP) Pulse Ox O2 O2 Flow FiO2 Time Delivery Rate 08/01/18 97.8 63 20 132/74 95 Room Air 15:38 (93) 08/01/18 2.0 07:41 07/30/18 30 17:06 Intake and Output 07/31/18 07/31/18 08/01/18 1515:00 23:00 07:00 IntakeIntake Total 1050 ml 600 ml OutputOutput Total 900 ml 1600 ml BalanceBalance 150 ml -1000 ml Exam Constitutional: alert, oriented (No apparent distress) Head: normocephalic Respiratory: other (Coarse breath sounds bilaterally, no wheezing) Cardiovascular: regular rate and rhythm (S1-S2 heard) Gastrointestinal: soft, non-tender, bowel sounds Extremities: edema (Trace) Labs Result Diagram: 08/01/18 0510 08/01/18 0510 Results 24hrs Laboratory Tests Test 07/31/18 17:20 07/31/18 17:21 07/31/18 20:10 08/01/18 01:25 Urine Random 30.17 Creatinine Urine Random Sodium 82 Urine Total Protein 116.0 H Bedside Glucose 208 294 H 68 L Test 08/01/18 01:48 08/01/18 02:07 08/01/18 05:10 08/01/18 07:46 Bedside Glucose 109 158 261 H White Blood Count 8.5 Red Blood Count 3.76 L Hemoglobin 9.6 L Hematocrit 31.0 L Mean Corpuscular 82.4 Volume Mean Corpuscular 25.5 L Hemoglobin Mean Corpuscular 31.0 L Hemoglobin Concent Red Cell 15.3 H Distribution Width Platelet Count 268 Mean Platelet Volume 10.7 H Immature 0.400 Granulocytes % Neutrophils % 80.4 H Lymphocytes % 7.3 L Monocytes % 8.6 Eosinophils % 2.4 Basophils % 0.9 Nucleated Red Blood 0.0 Cells % Immature 0.030 Granulocytes # Neutrophils # 6.8 Lymphocytes # 0.6 L Monocytes # 0.7 Eosinophils # 0.2 Basophils # 0.1 Nucleated Red Blood 0.0 Cells # Sodium Level 137 Potassium Level 3.4 L Chloride Level 98 Carbon Dioxide Level 27 Anion Gap 12 Blood Urea Nitrogen 63 H Creatinine 2.58 H Est Glomerular Filtrat Rate mL/min Glucose Level 268 #H Calcium Level 8.5 Phosphorus Level 4.5 Magnesium Level 2.2 Test 08/01/18 11:53 Bedside Glucose 170 Medications Medications Current Medications IV Flush (NS 3 ml) 3 ml PER PROTOCOL IV ; Start 07/30/18 at 18:00 Ondansetron HCl (Zofran Inj) 4 mg Q6H PRN IV NAUSEA/VOMITING; Start 07/30/18 at 18:00 Acetaminophen (Tylenol Tab) 650 mg Q6H PRN PO .PAIN 1-3 OR TEMP; Start 07/30/18 at 18:00 Apixaban (Eliquis) 2.5 mg BID PO Last administered on 08/01/18 08:27; Admin Dose 2.5 MG; Start 07/30/18 at 21:00 Aspirin (Halfprin) 81 mg DAILY PO Last administered on 08/01/18 08:26; Admin Dose 81 MG; Start 07/31/18 at 09:00 Atorvastatin Calcium (Lipitor) 40 mg QHS PO Last administered on 07/31/18 20:13; Admin Dose 40 MG; Start 07/30/18 at 21:00 Carvedilol (Coreg) 6.25 mg BID PO Last administered on 08/01/18 08:27; Admin Dose 6.25 MG; Start 07/30/18 at 21:00 Hydralazine HCl (Apresoline) 100 mg BID PO Last administered on 08/01/18 08:26; Admin Dose 100 MG; Start 07/30/18 at 21:00 Isosorbide Mononitrate (Imdur) 30 mg DAILY PO Last administered on 08/01/18 08:27; Admin Dose 30 MG; Start 07/31/18 at 09:00 Thiamine HCl (Vitamin B1) 100 mg DAILY PO Last administered on 08/01/18 08:27; Admin Dose 100 MG; Start 07/31/18 at 09:00 Diagnostic Test (Pha) (Accu-Chek) 1 ea 02 XX Last administered on 07/31/18 02:00; Admin Dose 1 EA; Start 07/31/18 at 02:00 Insulin Glargine (Lantus) 40 units DAILY@2000 SC Last administered on 07/31/18 20:20; Admin Dose 40 UNITS; Start 07/30/18 at 20:00 Insulin Aspart (Novolog Insulin Pen) NOVOLOG *MODERATE* ALGORITHM WITH MEALS BEDTIME SC Last administered on 08/01/18 12:03; Admin Dose 2 UNIT; Start 07/30/18 at 18:00 Furosemide (Lasix) 40 mg BID DIURETICS IV Last administered on 08/01/18 06:22; Admin Dose 40 MG; Start 07/30/18 at 18:00 Miscellaneous Information 1 ea NOTE XX ; Start 07/30/18 at 22:00 Glucose (Glutose) 15 gm Q15M PRN PO DECREASED GLUCOSE; Start 07/30/18 at 22:00 Glucose (Glutose) 22.5 gm Q15M PRN PO DECREASED GLUCOSE; Start 07/30/18 at 22:00 Dextrose (D50w Syringe) 25 ml Q15M PRN IV DECREASED GLUCOSE; Start 07/30/18 at 22:00 Dextrose (D50w Syringe) 50 ml Q15M PRN IV DECREASED GLUCOSE; Start 07/30/18 at 22:00 Glucagon (Glucagen) 1 mg Q15M PRN IM DECREASED GLUCOSE; Start 07/30/18 at 22:00 Glucose (Glutose) 15 gm Q15M PRN BUCCAL DECREASED GLUCOSE; Start 07/30/18 at 22:00 Heparin Sodium (Porcine) (Heparin (5000 Units/1ml)) 5,000 unit Q12 SC Last administered on 08/01/18at 09:07; Admin Dose 5,000 UNIT; Start 07/31/18 at 21:00 Agustin Traylor DO Aug 01, 2018 16:19
[2018-08-01] MEDS: ATORVASTATIN 40 MG TAB PO SCH (20:30)
--- NOTE | 2018-08-01 20:38 | PN ---
DATE: 08/01/2018 SUBJECTIVE: The patient is noted to have shortness of breath this morning. No other events noted. OBJECTIVE: VITAL SIGNS: Blood pressure is 114/63, respiratory rate 20, pulse 63, temperature 97.8. HEENT: Head is normocephalic. NECK: Supple. HEART: Regular rate. LUNGS: Show diminished breath sounds at the base. ABDOMEN: Soft, nontender to palpation without rebound or guarding. EXTREMITIES: Negative for clubbing, cyanosis, no edema. DERMATOLOGIC: No rashes. MUSCULOSKELETAL: No joint effusion. NEUROLOGIC: No change in exam. MEDICATIONS: Reviewed. LABORATORY DATA: Has been reviewed. ASSESSMENT AND PLAN: 1. Non-oliguric acute kidney injury stage IV with previous baseline creatinine around 2.5 to 3 mg/dL . Etiology of acute kidney injury is secondary to hemodynamics, possible cardiorenal syndrome. Mavis l function appears to be near baseline. Continue current treatment plan. I spoke with Dr. Hussein singh closely on diuretic regimen. 2. Volume overload. The patient remains decompensated. Continue diuretic regimen. We will add met olazone to augment diuresis. 3. Hypokalemia. We will replete with potassium chloride. 4. Anemia. Continue to monitor hemoglobin and hematocrit levels. 5. Mineral bone syndrome. Monitor calcium and potassium levels. 6. Acute hypoxic respiratory failure secondary to congestive heart failure. Continue diuretic regim en. 7. Hypertension. Continue current blood pressure regimen. 8. Coronary artery disease. Continue medical management. 9. Dyslipidemia. Continue statin therapy. 10. History of arrhythmia. The patient has refused LifeVest. Continue to monitor. Dictated By: CHRISTOPHER ROSADO/PATRICK Conf#: [id number] DID#: [id number]
[2018-08-01] MEDS: INSULIN GLARGINE [LANTus] (100 UNITS/ML) SYG SC SCH (21:01)
[2018-08-02] VITALS (10 sets, daily range): BP systolic 119–137; BP diastolic 59–74; PULSE 61–71; RESP 18–20
[2018-08-02] MEDS: ACCU-CHEK XX SCH (02:00)
[2018-08-02] MEDS: FUROSEMIDE 40 MG INJ IV SCH ×2 (05:29→17:49)
[2018-08-02] MEDS: INSULIN ASPART [NOVOLOG] 3 ML PEN SC SCH ×4 (08:00→21:02)
[2018-08-02] MEDS: ISOSORBIDE MONONITRATE(SR)30 MG TAB PO SCH (08:37)
[2018-08-02] MEDS: THIAMINE 100 MG TAB PO SCH (08:38)
[2018-08-02] MEDS: ASPIRIN (EC) 81 MG TAB PO SCH (08:38)
[2018-08-02] MEDS: APIXABAN 5 MG TABLET PO SCH ×2 (08:39→20:53)
[2018-08-02] MEDS: HEPARIN 5,000 UNIT/1 ML VIAL SC SCH ×2 (08:43→21:00)
--- NOTE | 2018-08-02 12:04 | PN ---
Date/Time of Note Date/Time of Note DATE: 08/02/18 TIME: 12:03 Assessment/Plan VTE Prophylaxis Risk score (from Ns)>0 risk: 4 SCD applied (from Ns): No SCD contraindicated: other Pharmacological prophylaxis: apixaban Lines/Catheters IV Catheter Type [facility]from [facility] [place] [facility] Assessment/Plan Hospital Course S: Patient states he has less shortness of breath today. Tolerating diet. O: VS- see below PE: General: Frail elderly man sitting up in bed, no acute distress Head: Moist mucous membranes, clear oropharynx. Eyes: PERRL, no icterus. Neck: Supple Respiratory: Less crackles bilaterally with slightly less diminished bibasilar breath sounds. Cardiovascular: regular rate and rhythm, no obvious murmurs Gastrointestinal: non-tender to palpation, bowel sounds heard. Ext: Trace pitting edema, per patient this is baseline. 2D echo July 31, 2018: Conclusions: Mild concentric left ventricular hypertrophy. Moderate enlargement of left ventricle cavity. Severe global left ventricular systolic dysfunction. Ejection fraction is visually estimated at 20-25 %. Tissue Doppler/Mitral Doppler indices are consistent with restrictive physiology with markedly elevated left atrial pressure (Stage III-IV diastolic dysfunction). There is moderate enlargement of left atrium. Mild mitral leaflet calcification. Mild mitral annular calcification. Moderate to severe mitral valve regurgitation. No hemodynamically significant aortic stenosis by doppler. Aortic cusps appear mildly calcified. Trace aortic valve regurgitation. Normal appearance of the tricuspid valve. The estimated Peak RVSP is 22 mmHg. There is trace tricuspid regurgitation. Assessment/Plan: 72 yo man with IDDM, CKD, HTN and CHF presenting in exacerbation. #Chronic congestive heart failure with acute exacerbation- Elevated BNP, pulmonary edema on CXR. Patient apparently was on BiPAP in the emergency room, presently off this- EKG without evidence of ischemia- Patient has frequent admission; previously hospice has been discussed but patient declined. - For now continue head elevation, diuresis with lasix BID. - Follow further cardiology recs, repeat echo results reviewed #IDDM: A1c was 10, sugars presently stable - Continue home lantus and insulin sliding scale #Dyslipidemia - Continue home statin #HTN - Continue home beta abraham, hydralazine, nitrate. #NSVT- Previously given LifeVest but he isn't using it. Apparently it's just hanging in his closet- Also has Eliquis which is new from last admission; unclear what this is for. -Monitor, will continue Eliquis GI: PPI Dispo: Possibly home today or in 24 hours once cleared by renal and cardiology teams. Result Diagram: 08/02/18 0512 08/02/18 0512 Results 24hrs Laboratory Tests Test 08/01/18 17:23 08/01/18 20:26 08/02/18 02:33 08/02/18 04:50 Bedside Glucose 136 207 110 66 L Test 08/02/18 05:12 08/02/18 05:13 08/02/18 05:28 08/02/18 07:45 White Blood Count 9.2 Red Blood Count 3.95 L Hemoglobin 10.0 L Hematocrit 32.5 L Mean Corpuscular 82.3 Volume Mean Corpuscular 25.3 L Hemoglobin Mean Corpuscular 30.8 L Hemoglobin Concent Red Cell 15.4 H Distribution Width Platelet Count 317 Mean Platelet Volume 10.8 H Immature 0.300 Granulocytes % Neutrophils % 68.2 Lymphocytes % 12.0 L Monocytes % 12.6 H Eosinophils % 5.8 Basophils % 1.1 Nucleated Red Blood 0.0 Cells % Immature 0.030 Granulocytes # Neutrophils # 6.3 Lymphocytes # 1.1 Monocytes # 1.2 H Eosinophils # 0.5 Basophils # 0.1 Nucleated Red Blood 0.0 Cells # Sodium Level 143 Potassium Level 3.5 Chloride Level 100 Carbon Dioxide Level 30 Anion Gap 13 Blood Urea Nitrogen 64 H Creatinine 2.78 H Est Glomerular Filtrat Rate mL/min Glucose Level 82 # Calcium Level 8.8 Phosphorus Level 4.1 Magnesium Level 2.2 Bedside Glucose 108 155 250 H Exam/Review of Systems Exam Vitals Vital Signs Date Temp Pulse Resp B/P (MAP) Pulse Ox O2 O2 Flow FiO2 Time Delivery Rate 08/02/18 98.6 65 20 134/74 94 11:21 (94) 08/02/18 Nasal 2.0 08:00 Cannula 07/30/18 30 17:06 Intake and Output 08/01/18 08/01/18 08/02/18 1515:00 23:00 07:00 IntakeIntake Total 540 ml 600 ml BalanceBalance 540 ml 600 ml Results Results 24hrs Laboratory Tests Test 08/01/18 17:23 08/01/18 20:26 08/02/18 02:33 08/02/18 04:50 Bedside Glucose 136 207 110 66 L Test 08/02/18 05:12 08/02/18 05:13 08/02/18 05:28 08/02/18 07:45 White Blood Count 9.2 Red Blood Count 3.95 L Hemoglobin 10.0 L Hematocrit 32.5 L Mean Corpuscular 82.3 Volume Mean Corpuscular 25.3 L Hemoglobin Mean Corpuscular 30.8 L Hemoglobin Concent Red Cell 15.4 H Distribution Width Platelet Count 317 Mean Platelet Volume 10.8 H Immature 0.300 Granulocytes % Neutrophils % 68.2 Lymphocytes % 12.0 L Monocytes % 12.6 H Eosinophils % 5.8 Basophils % 1.1 Nucleated Red Blood 0.0 Cells % Immature 0.030 Granulocytes # Neutrophils # 6.3 Lymphocytes # 1.1 Monocytes # 1.2 H Eosinophils # 0.5 Basophils # 0.1 Nucleated Red Blood 0.0 Cells # Sodium Level 143 Potassium Level 3.5 Chloride Level 100 Carbon Dioxide Level 30 Anion Gap 13 Blood Urea Nitrogen 64 H Creatinine 2.78 H Est Glomerular Filtrat Rate mL/min Glucose Level 82 # Calcium Level 8.8 Phosphorus Level 4.1 Magnesium Level 2.2 Bedside Glucose 108 155 250 H Medications Medication Current Medications IV Flush (NS 3 ml) 3 ml PER PROTOCOL IV ; Start 07/30/18 at 18:00 Ondansetron HCl (Zofran Inj) 4 mg Q6H PRN IV NAUSEA/VOMITING; Start 07/30/18 at 18:00 Acetaminophen (Tylenol Tab) 650 mg Q6H PRN PO .PAIN 1-3 OR TEMP; Start 07/30/18 at 18:00 Apixaban (Eliquis) 2.5 mg BID PO Last administered on 08/02/18at 08:39; Admin Dose 2.5 MG; Start 07/30/18 at 21:00 Aspirin (Halfprin) 81 mg DAILY PO Last administered on 08/02/18 08:38; Admin Dose 81 MG; Start 07/31/18 at 09:00 Atorvastatin Calcium (Lipitor) 40 mg QHS PO Last administered on 08/01/18at 20:30; Admin Dose 40 MG; Start 07/30/18 at 21:00 Carvedilol (Coreg) 6.25 mg BID PO Last administered on 08/02/18at 08:38; Admin Dose 6.25 MG; Start 07/30/18 at 21:00 Hydralazine HCl (Apresoline) 100 mg BID PO Last administered on 08/02/18 08:38; Admin Dose 100 MG; Start 07/30/18 at 21:00 Isosorbide Mononitrate (Imdur) 30 mg DAILY PO Last administered on 08/02/18 08:37; Admin Dose 30 MG; Start 07/31/18 at 09:00 Thiamine HCl (Vitamin B1) 100 mg DAILY PO Last administered on 08/02/18 08:38; Admin Dose 100 MG; Start 07/31/18 at 09:00 Diagnostic Test (Pha) (Accu-Chek) 1 ea 02 XX Last administered on 07/31/18at 02:00; Admin Dose 1 EA; Start 07/31/18 at 02:00 Furosemide (Lasix) 40 mg BID DIURETICS IV Last administered on 08/02/18at 05:29; Admin Dose 40 MG; Start 07/30/18 at 18:00 Miscellaneous Information 1 ea NOTE XX ; Start 07/30/18 at 22:00 Glucose (Glutose) 15 gm Q15M PRN PO DECREASED GLUCOSE; Start 07/30/18 at 22:00 Glucose (Glutose) 22.5 gm Q15M PRN PO DECREASED GLUCOSE; Start 07/30/18 at 22:00 Dextrose (D50w Syringe) 25 ml Q15M PRN IV DECREASED GLUCOSE; Start 07/30/18 at 22:00 Dextrose (D50w Syringe) 50 ml Q15M PRN IV DECREASED GLUCOSE; Start 07/30/18 at 22:00 Glucagon (Glucagen) 1 mg Q15M PRN IM DECREASED GLUCOSE; Start 07/30/18 at 22:00 Glucose (Glutose) 15 gm Q15M PRN BUCCAL DECREASED GLUCOSE; Start 07/30/18 at 22:00 Heparin Sodium (Porcine) (Heparin (5000 Units/1ml)) 5,000 unit Q12 SC Last administered on 08/02/18at 08:43; Admin Dose 5,000 UNIT; Start 07/31/18 at 21:00 Insulin Aspart (Novolog Insulin Pen) NOVOLOG *MILD* ALGORITHM WITH MEALS BEDTIME SC Last administered on 08/02/18at 08:00; Admin Dose 3 UNIT; Start 08/01/18 at 21:00 Insulin Glargine (Lantus) 35 units DAILY@2000 SC ; Start 08/02/18 at 20:00 SOFI RENTERIA Aug 02, 2018 12:04
--- NOTE | 2018-08-02 13:19 | PN ---
DATE: 08/02/2018 SUBJECTIVE: The patient is stable. No events overnight. The patient had episodes of hypoglycemia n oted. OBJECTIVE: VITAL SIGNS: Blood pressure is 119/62, pulse 66, respirations 20, temperature 97.8. HEENT: Head is normocephalic. NECK: Supple. HEART: Regular rate. LUNGS: Show diminished breath sounds at the base. ABDOMEN: Soft, nontender to palpation without rebound or guarding. EXTREMITIES: Negative for clubbing, cyanosis, no edema. DERMATOLOGIC: No rashes. MUSCULOSKELETAL: No joint effusion. NEUROLOGIC: No change in exam. MEDICATIONS: Reviewed. LABORATORY DATA: Reviewed. ASSESSMENT AND PLAN: 1. Nonoliguric acute kidney disease on top of chronic kidney disease stage IV with previous baseline creatinine around 2.5 to 3 mg/dL. Etiology of acute kidney injury is secondary to hemodynamics. Th e patient's renal function is fluctuating. Continue to monitor closely. Continue current diuretic r egimen for now. We will consider changing to oral Bumex in the next 24 hours. 2. Acute heart failure. The patient is clinically improving. Continue current diuretic regimen, mo nitor renal function closely. 3. Hypokalemia. Continue to monitor and replete as needed. 4. Anemia. Monitor hemoglobin and hematocrit levels. 5. Mineral bone disorder. Monitor calcium and phosphorus levels. 6. Acute hypoxemic respiratory failure secondary to congestive heart failure. Continue medical merlyn gement. 7. Hypertension. Continue current blood pressure regimen. 8. Coronary artery disease. Continue current treatment plan. 9. Dyslipidemia. Continue statin therapy. 10. History of arrhythmia. 11. Hypoglycemia. Continue to monitor and adjust insulin regimen. Dictated By: CHRISTOPHER MARIO DO NR/NTS Conf#: [id number] DID#: [id number] CC: ANGELIQUE ALVARES MD; CHRISTOPHER MARIO DO; SOFI RENTERIA;*EndCC*
--- NOTE | 2018-08-02 15:10 | CONS ---
Assessment/Plan Assessment/Plan Hospital Course (Demo Recall) Acute decompensated systolic congestive heart failure Cardia myopathy with ejection fraction 25 Mild to moderate coronary artery disease left heart catheterization January 2016 History of ventricular tachycardia, with LifeVest CKD Hypertension Continue beta-abraham and titrate as heart rate and blood pressure permits Continue afterload reducing agent given severe cardia myopathy Diuretics as per nephrology, could likely switch over to p.o. Maintain potassium above 4.0 and magnesium above 2.0 Outpatient follow-up for biventricular pacemaker/ICD DC planning Consultation Date/Type/Reason Admit Date/Time Jul 30, 2018 at 16:26 Initial Consult Date Type of Consult Cardiology Date/Time of Note DATE: 08/02/18 TIME: 15:08 24 HR Interval Summary Free Text/Dictation No shortness of breath, chest pain, dizziness Exam/Review of Systems Vital Signs Vitals Vital Signs Date Temp Pulse Resp B/P (MAP) Pulse Ox O2 O2 Flow FiO2 Time Delivery Rate 08/02/18 63 12:18 08/02/18 98.6 20 134/74 94 11:21 (94) 08/02/18 Nasal 2.0 08:00 Cannula 07/30/18 30 17:06 Intake and Output 08/01/18 08/01/18 08/02/18 1515:00 23:00 07:00 IntakeIntake Total 540 ml 600 ml BalanceBalance 540 ml 600 ml Exam Constitutional: alert, oriented (No apparent distress) Head: normocephalic Respiratory: other (Coarse breath sounds bilaterally, no wheezing) Cardiovascular: regular rate and rhythm (S1-S2 heard) Gastrointestinal: soft, non-tender, bowel sounds Extremities: edema Labs Result Diagram: 08/02/1812 08/02/18 0512 Results 24hrs Laboratory Tests Test 08/01/18 17:23 08/01/18 20:26 08/02/18 02:33 08/02/18 04:50 Bedside Glucose 136 207 110 66 L Test 08/02/18 05:12 08/02/18 05:13 08/02/18 05:28 08/02/18 07:45 White Blood Count 9.2 Red Blood Count 3.95 L Hemoglobin 10.0 L Hematocrit 32.5 L Mean Corpuscular 82.3 Volume Mean Corpuscular 25.3 L Hemoglobin Mean Corpuscular 30.8 L Hemoglobin Concent Red Cell 15.4 H Distribution Width Platelet Count 317 Mean Platelet Volume 10.8 H Immature 0.300 Granulocytes % Neutrophils % 68.2 Lymphocytes % 12.0 L Monocytes % 12.6 H Eosinophils % 5.8 Basophils % 1.1 Nucleated Red Blood 0.0 Cells % Immature 0.030 Granulocytes # Neutrophils # 6.3 Lymphocytes # 1.1 Monocytes # 1.2 H Eosinophils # 0.5 Basophils # 0.1 Nucleated Red Blood 0.0 Cells # Sodium Level 143 Potassium Level 3.5 Chloride Level 100 Carbon Dioxide Level 30 Anion Gap 13 Blood Urea Nitrogen 64 H Creatinine 2.78 H Est Glomerular Filtrat Rate mL/min Glucose Level 82 # Calcium Level 8.8 Phosphorus Level 4.1 Magnesium Level 2.2 Bedside Glucose 108 155 250 H Test 08/02/18 12:02 Bedside Glucose 196 Medications Medications Current Medications IV Flush (NS 3 ml) 3 ml PER PROTOCOL IV ; Start 07/30/18 at 18:00 Ondansetron HCl (Zofran Inj) 4 mg Q6H PRN IV NAUSEA/VOMITING; Start 07/30/18 at 18:00 Acetaminophen (Tylenol Tab) 650 mg Q6H PRN PO .PAIN 1-3 OR TEMP; Start 07/30/18 at 18:00 Apixaban (Eliquis) 2.5 mg BID PO Last administered on 08/02/18 08:39; Admin Dose 2.5 MG; Start 07/30/18 at 21:00 Aspirin (Halfprin) 81 mg DAILY PO Last administered on 08/02/18 08:38; Admin Dose 81 MG; Start 07/31/18 at 09:00 Atorvastatin Calcium (Lipitor) 40 mg QHS PO Last administered on 08/01/18at 20:30; Admin Dose 40 MG; Start 07/30/18 at 21:00 Carvedilol (Coreg) 6.25 mg BID PO Last administered on 08/02/18 08:38; Admin Dose 6.25 MG; Start 07/30/18 at 21:00 Hydralazine HCl (Apresoline) 100 mg BID PO Last administered on 08/02/18 08:38; Admin Dose 100 MG; Start 07/30/18 at 21:00 Isosorbide Mononitrate (Imdur) 30 mg DAILY PO Last administered on 6/19/19at 08:37; Admin Dose 30 MG; Start 07/31/18 at 09:00 Thiamine HCl (Vitamin B1) 100 mg DAILY PO Last administered on 08/02/18at 08:38; Admin Dose 100 MG; Start 07/31/18 at 09:00 Diagnostic Test (Pha) (Accu-Chek) 1 ea 02 XX Last administered on 07/31/18at 02:00; Admin Dose 1 EA; Start 07/31/18 at 02:00 Furosemide (Lasix) 40 mg BID DIURETICS IV Last administered on 08/02/18at 05:29; Admin Dose 40 MG; Start 07/30/18 at 18:00 Miscellaneous Information 1 ea NOTE XX ; Start 07/30/18 at 22:00 Glucose (Glutose) 15 gm Q15M PRN PO DECREASED GLUCOSE; Start 07/30/18 at 22:00 Glucose (Glutose) 22.5 gm Q15M PRN PO DECREASED GLUCOSE; Start 07/30/18 at 22:00 Dextrose (D50w Syringe) 25 ml Q15M PRN IV DECREASED GLUCOSE; Start 07/30/18 at 22:00 Dextrose (D50w Syringe) 50 ml Q15M PRN IV DECREASED GLUCOSE; Start 07/30/18 at 22:00 Glucagon (Glucagen) 1 mg Q15M PRN IM DECREASED GLUCOSE; Start 07/30/18 at 22:00 Glucose (Glutose) 15 gm Q15M PRN BUCCAL DECREASED GLUCOSE; Start 07/30/18 at 22:00 Heparin Sodium (Porcine) (Heparin (5000 Units/1ml)) 5,000 unit Q12 SC Last administered on 08/02/18at 08:43; Admin Dose 5,000 UNIT; Start 07/31/18 at 21:00 Insulin Aspart (Novolog Insulin Pen) NOVOLOG *MILD* ALGORITHM WITH MEALS BEDTIME SC Last administered on 08/02/18at 12:08; Admin Dose 2 UNIT; Start 08/01/18 at 21:00 Insulin Glargine (Lantus) 35 units DAILY@2000 SC ; Start 08/02/18 at 20:00 Agustin Traylor DO Aug 02, 2018 15:10
[2018-08-02] MEDS ORDERED: INSULIN GLARGINE [LANTus] (100 UNITS/ML) SYG SC SCH (20:00)
[2018-08-02] MEDS: ATORVASTATIN 40 MG TAB PO SCH (20:53)
[2018-08-03] VITALS (7 sets, daily range): BP systolic 117–136; BP diastolic 58–79; PULSE 60–73; RESP 18–20
[2018-08-03] MEDS: ACCU-CHEK XX SCH (02:16)
[2018-08-03] MEDS: FUROSEMIDE 40 MG INJ IV SCH (05:11)
[2018-08-03] MEDS: INSULIN ASPART [NOVOLOG] 3 ML PEN SC SCH ×2 (08:00→12:02)
[2018-08-03] MEDS: HEPARIN 5,000 UNIT/1 ML VIAL SC SCH (09:08)
[2018-08-03] MEDS: ASPIRIN (EC) 81 MG TAB PO SCH (09:11)
[2018-08-03] MEDS: THIAMINE 100 MG TAB PO SCH (09:11)
[2018-08-03] MEDS: ISOSORBIDE MONONITRATE(SR)30 MG TAB PO SCH (09:12)
[2018-08-03] MEDS: APIXABAN 5 MG TABLET PO SCH (09:12)
--- NOTE | 2018-08-03 11:05 | PN ---
DATE: 08/03/2018 SUBJECTIVE: The patient is stable. No events overnight. OBJECTIVE: VITAL SIGNS: Blood pressure is 136/71, pulse 60, respirations 20, temperature 98.1. HEENT: Head is normocephalic. NECK: Supple. HEART: Regular rate. LUNGS: Show diminished breath sounds at the base. ABDOMEN: Soft, nontender to palpation without rebound or guarding. EXTREMITIES: Negative for clubbing, cyanosis, no edema. DERMATOLOGIC: No rashes. MUSCULOSKELETAL: No joint effusion. NEUROLOGIC: No change in exam. MEDICATIONS: The patient's medications have been reviewed. LABORATORY DATA: Has been reviewed. IMAGING STUDIES: Have been reviewed. ASSESSMENT AND PLAN: 1. Nonoliguric kidney injury on chronic kidney disease stage IV with previous baseline creatinine ar ound 2.5 to 3 mg/dL. Etiology of ABDI is secondary to hemodynamics. Renal function is fluctuating, b ut overall stable. Continue current treatment plan, supportive care and renally dose all meds. Will start the patient on oral Bumex. 2. Acute heart failure, clinically improved. Continue current diuretic regimen. 3. Hypokalemia. Continue to monitor and replete as needed 4. Anemia. Monitor hemoglobin and hematocrit levels. 5. Mineral bone disorder. Monitor calcium and phosphorus levels. 6. Acute hypoxic respiratory failure secondary to CHF, improved. Continue medical management. 7. Hypertension. Continue current blood pressure regimen. 8. Coronary artery disease. Continue medical management. 9. Dyslipidemia. Continue statin therapy. 10. Arrhythmia. Continue to monitor. Follow up with cardiology. Dictated By: CHRISTOPHER MARIO DO NR/NTS Conf#: [id number] DID#: [id number] CC: ANGELIQUE ALVARES MD; SOFI RENTERIA;*EndCC*
[2018-08-03] MEDS ORDERED: BUME1TAB PO (11:44)
--- NOTE | 2018-08-03 11:44 | PDOCDIS ---
Discharge Instructions CONDITION [id number] Patient Condition: [id number] Stable HOME CARE INSTRUCTIONS: [id number] Diet Instructions: [id number] Low Fat /Cholesterol ACTIVITY: [id number] Activity Restrictions: [id number] Slowly Increase Activity Rest between Activity Avoid heavy lifting FOLLOW UP/APPOINTMENTS Follow-up Plan Make sure you are using your LifeVest at home for your cardiac condition, see your doctor in the clinic in the next 1 to 2 weeks and take your other medications as prescribed. SOFI RENTERIA. Aug 03, 2018 11:44
--- NOTE | 2018-08-03 11:54 | DS ---
Date/Time of Note Date/Time of Note DATE: 08/03/18 TIME: 11:49 Discharge Summary Admission/Discharge Info Admit Date/Time Jul 30, 2018 at 16:26 Discharge Date/Time Discharge Diagnosis #Chronic congestive heart failure with acute exacerbation -Ejection fraction is visually estimated at 20-25 %. improving now with diuresis #IDDM: A1c was 10, sugars presently stable #Dyslipidemia #HTN #NSVT- Previously given LifeVest but apparently he isn't using it (Apparently it's just hanging in his closet) -associate marketing manager investigated if the patient actually has at home and trying to contact other family members to confirm this -also on Eliquis # GERD # CAD; mild cad; cath '16? # ACD Patient Condition: Stable Procedures 2D echo July 31, 2018: Conclusions: Mild concentric left ventricular hypertrophy. Moderate enlargement of left ventricle cavity. Severe global left ventricular systolic dysfunction. Ejection fraction is visually estimated at 20-25 %. Tissue Doppler/Mitral Doppler indices are consistent with restrictive physiology with markedly elevated left atrial pressure (Stage III-IV diastolic dysfunction). There is moderate enlargement of left atrium. Mild mitral leaflet calcification. Mild mitral annular calcification. Moderate to severe mitral valve regurgitation. No hemodynamically significant aortic stenosis by doppler. Aortic cusps appear mildly calcified. Trace aortic valve regurgitation. Normal appearance of the tricuspid valve. The estimated Peak RVSP is 22 mmHg. There is trace tricuspid regurgitation. Hx of Present Illness 72 yo man with history of IDDM, CKD, CHF, NSVT, HTN, and CAD who presents in CHF exacerbation. Recently hospitalized here at [facility] for same, discharge 06/10. He reports at home he was near baseline until about the past 4-5 days ago he developed cough productive of yellow sputum. For past two nights he has had severe orthopnea and sleeps sitting up; and even then has frequent PND and needs to stand up to catch his breath. Today he had dizziness when standing. His son from [place] came to visit early this morning for Father's Day and when he arrived, the patient was very dyspneic at rest and asked to be brought to the emergency room. The son has been with him all day in the ED and plans to fly back to [facility]. Otherwise the patient does report compliance with all meds. In the ED the patient was afebrile, tachypenic to 30s, BP 167/79, saturating 99% on room air. Labs concerning for BNP to 20k and trop 0.039, hyperglycemic to 430, and CXR showed diffuse pulmonary edema. Hospital Course Patient was admitted and seen by renal and cardiology team during the hospital stay. Patient was found to be in another episode of CHF exacerbation. Of note this is the patient's fourth visit this year for similar symptoms and admission diagnosis. He was placed on IV diuresis and given other cardiac medications. His renal function was monitored as well. He was eventually able to ambulate, tolerated p.o. diet and is renal function as well as his cardiac symptoms improved. He was recommended again to use the LifeVest at home which per adult protective caseworker he apparently has at home as it was ordered on another hospital admission, however there is a question if he is compliant with this or not, again he was educated about the strict importance of adhering to this. As well, it was strongly recommended by the cardiology team he follows up as an outpatient for consideration for biventricular AICD placement. After getting clearance from the franchise consultant teams and because the patient's vital signs are stable, he will be discharged home later today with home health PT in stable condition. See below for full list of discharge medications. Home Meds Active Scripts Bumetanide* (Bumetanide*) 1 Mg Tablet, 1 MG PO BID DIURETICS, #60 TAB 3 Refills Prov:SOFI RENTERIA 08/03/18 Thiamine* (Thiamine*) 100 Mg Tablet, 100 MG PO DAILY for 30 Days, #30 TAB Prov:CHUY HORTON MD 04/01/18 Reported Medications Liraglutide (Victoza 3-Donnie) 0.6 Mg/0.1 Ml Pen.injctr, 1.8 MG SQ BID, SYR 07/30/18 [place]-3 Acid Ethyl Esters (Lovaza) 1 Gm Capsule, 2 GM PO BID, CAP 07/30/18 Apixaban* (Eliquis*) 2.5 Mg Tablet, 2.5 MG PO BID, TAB 06/07/18 Carvedilol* (Carvedilol*) 6.25 Mg Tablet, 6.25 MG PO BID, #60 TAB 06/07/18 Hydralazine Hcl* (Hydralazine Hcl*) 100 Mg Tablet, 100 MG PO BID, #90 TAB 06/07/18 Isosorbide Mononitrate* (Isosorbide Mononitrate*) 30 Mg Tab.er.24h, 30 MG PO DAILY, TAB 03/20/18 Aspirin* (Aspirin* EC) 81 Mg Tablet.dr, 81 MG PO DAILY, TAB 03/04/18 Insulin Glargine,Hum.rec.anlog (Chhaya Boswell) 300 Unit/1 Ml Insuln.pen, 42 UNIT SQ QPM, EA 03/04/18 Atorvastatin* (Atorvastatin*) 40 Mg Tablet, 40 MG PO QHS, #30 TAB 03/04/18 Discontinued Reported Medications Furosemide* (Furosemide*) 40 Mg Tablet, 40 MG PO DAILY, TAB 07/30/18 Discontinued Scripts Guaifenesin-Dextromethorphan* (Robitussin* DM) 100MG/10MG/5ML Syrup, 10 ML PO Q6H PRN for COUGH MDD 4 for 10 Days, #1 ML Prov:CHUY HORTON MD 06/10/18 Albuterol Sulfate (Proair Respiclick) 90 Mcg Aer.pow.ba, 2 PUFFS INHALATION Q4H WHILE AWAKE PRN for SHORTNESS OF BREATH MDD 6 for 1 Day, BOTTLE 2 Refills Prov:CHUY HORTON MD 06/10/18 Methylprednisolone* (Medrol* DOSE PACK) 4 Mg/Dose-Pack Tab.ds.pk, 4 MG PO . DIRECTED for 4 Days, PACKET Dispense 1 packet Prov:CHUY HORTON MD 06/10/18 Acetaminophen* (Tylenol*) 325 Mg Tablet, 650 MG PO Q6H PRN for .PAIN 1-3 OR TEMP for 7 Days, TAB Prov:CHUY HORTON MD 06/10/18 Famotidine* (Famotidine*) 20 Mg Tablet, 20 MG PO DAILY, #15 TAB otc Prov:CHUY HORTON MD 05/11/18 Furosemide* (Furosemide*) 40 Mg Tablet, 40 MG PO DAILY for 14 Days, #14 TAB Prov:CHUY HORTON MD 05/11/18 Acetaminophen* (Tylenol*) 325 Mg Tablet, 650 MG PO Q6H PRN for .PAIN 1-3 OR TEMP for 1 Day, #1 TAB Prov:CHUY HORTON MD 05/11/18 [place]-3/Dha/Epa/Fish Oil (FISH OIL EC 1,000 MG SOFTGEL) 1 Each Capsule., 2000 MG PO BID, #30 CAP Prov:NITIN SHINNELL GROCERY TEAM MEMBER 03/03/17 Follow-up Plan Make sure you are using your LifeVest at home for your cardiac condition, see your doctor in the clinic in the next 1 to 2 weeks and take your other medications as prescribed. Primary Care Provider Not On Staff Doctor Time spent on discharge: > 30 minutes Pending Labs Laboratory Tests Test 08/02/18 12:02 08/02/18 17:16 08/02/18 20:48 08/03/18 01:56 Bedside 196 133 243 76 Glucose mg/dL (70-220) mg/dL (70-220) mg/dL (70-220) mg/dL (70-220) Test 08/03/18 04:43 08/03/18 04:50 08/03/18 08:09 08/03/18 09:16 Bedside 91 79 201 Glucose mg/dL (70-220) mg/dL (70-220) mg/dL (70-220) Sodium Level 141 mmol/L (135-14 4) Potassium 3.9 Level mmol/L (3.5-5. 1) Chloride Level 102 mmol/L (97-110 ) Carbon Dioxide 29 Level mmol/L (21-31) Anion Gap 10 (5-13) Blood Urea 70 Nitrogen mg/dl (7-20) Creatinine 2.70 mg/dl (0.61-1. 24) Est Glomerular mL/min (>60) Filtrat Rate mL/min Glucose Level 76 mg/dl (70-220) Calcium Level 8.7 mg/dl (8.4-10. 2) Phosphorus 4.5 Level mg/dl (2.5-4.9 ) Magnesium 2.2 Level mg/dl (1.7-2.5 ) SOFI RENTERIA Aug 03, 2018 11:54
[2018-08-03] MEDS ORDERED: BUMETANIDE 1 MG TAB PO SCH (18:00)
== END 2018-08-03 14:41 | disposition home or self-care (01) | DRG 291 ==
LOC: E/R 15:09 → 6WM 16:26 → SUATTDRO 16:39
PROVIDERS: ADMIT Internal Medicine; ATTEND Hospitalist
DX: I13.0 Hypertensive heart and chronic kidney disease with heart failure and stage 1 through stage 4 chronic kidney disease, or unspecified chronic kidney disease (principal); I50.23 Acute on chronic systolic (congestive) heart failure; J96.01 Acute respiratory failure with hypoxia; N18.4 Chronic kidney disease, stage 4 (severe); N17.9 Acute kidney failure, unspecified; I47.1 Supraventricular tachycardia; E11.22 Type 2 diabetes mellitus with diabetic chronic kidney disease; I25.10 Atherosclerotic heart disease of native coronary artery without angina pectoris; E78.5 Hyperlipidemia, unspecified; I42.9 Cardiomyopathy, unspecified; E87.6 Hypokalemia; M10.9 Gout, unspecified; Z79.4 Long term (current) use of insulin; Z79.82 Long term (current) use of aspirin; Z87.891 Personal history of nicotine dependence; Z88.0 Allergy status to penicillin
CPT/HCPCS: 36415; 71045; 80048; 80053; 81001; 81003; 82043; 82962; 83036; 83690; 83735; 83880; 84100; 84145; 84155; 84300; 84443; 84484; 85025; 85610; 85730; 93005; 93306; 94660; 96374; 96375; J1644; J1815; J1940

== ENCOUNTER 2018-09-01 16:14 | Inpatient (IN) | payer OTHER, MEDICAID ==
[~2018-09-01] VITALS: Ht 162.6 cm; Wt 76.7 kg
[2018-09-01] MEDS: ATORVASTATIN 40 MG TAB PO SCH (04:39)
[~2018-09-01 16:14] MED LIST changes: -ACET325T33 PO; -ALBU90AE INHALATION; +BUME1TAB PO; +CARV12.579 PO; -FAMO20TA18 PO; -FURO40TA4 PO; -GUAI5SYR2 PO; +Insulin Glargine SC; +LIRA0.6P2 SQ; -MED4DP PO; +NOVO3I SC; -OMEG-157 PO; +OMEG100024 PO; +OMEG1CAP2 PO
[2018-09-01] MEDS ORDERED: IPRATROPIUM (NEB) 0.5 MG/2.5 ML AMP INH STA (16:28)
[2018-09-01] MEDS ORDERED: ALBUTEROL 0.5% (NEB) 2.5 MG/0.5 ML AMP INH STA (16:28)
--- NOTE | 2018-09-01 16:51 | ERD ---
ER Documentation Chief Complaint Chief Complaint CHEST PAIN SOB SINCE THIS AFTERNOON HPI This is a 72-year-old male with a past medical history of cardia myopathy with congestive heart failure and ejection fraction of 25%, chronic kidney disease and hypertension. The patient had a left heart catheterization performed in January 2018. The patient presents to the emergency department today stating that for the past 48 hours he is been experiencing intermittent chest pain and pressure. He states it is sharp shooting pain. Does not radiate to the left neck arm back or jaw. He also indicates that he has been experiencing int ermittent shortness of breath with exertion over the past several days as well. However this significantly worsened just prior to arrival. The patient stated he did not utilize any inhalers. Therefore he immediately came to the emergency department to further evaluation ROS All systems reviewed and are negative except as per history of present illness. Medications Home Meds Active Scripts Thiamine* (Thiamine*) 100 Mg Tablet, 100 MG PO DAILY for 30 Days, #30 TAB Prov:CHUY HORTON MD 04/01/18 Reported Medications Bumetanide* (Bumetanide*) 1 Mg Tablet, 1 MG PO BID, TAB 09/01/18 Liraglutide (Victoza 3-Donnie) 0.6 Mg/0.1 Ml Pen.injctr, 1.8 MG SQ BID, SYR 07/30/18 [place]-3 Acid Ethyl Esters (Lovaza) 1 Gm Capsule, 2 GM PO BID, CAP 07/30/18 Apixaban* (Eliquis*) 2.5 Mg Tablet, 2.5 MG PO BID, TAB 06/07/18 Carvedilol* (Carvedilol*) 6.25 Mg Tablet, 6.25 MG PO BID, #60 TAB 06/07/18 Hydralazine Hcl* (Hydralazine Hcl*) 100 Mg Tablet, 100 MG PO BID, #90 TAB 06/07/18 Isosorbide Mononitrate* (Isosorbide Mononitrate*) 30 Mg Tab.er.24h, 30 MG PO DAILY, TAB 03/20/18 Aspirin* (Aspirin* EC) 81 Mg Tablet.dr, 81 MG PO DAILY, TAB 03/04/18 Insulin Glargine,Hum.rec.anlog (Chhaya Boswell) 300 Unit/1 Ml Insuln.pen, 42 UNIT SQ QPM, EA 1/19/19 Atorvastatin* (Atorvastatin*) 40 Mg Tablet, 40 MG PO QHS, #30 TAB 03/04/18 Discontinued Scripts Bumetanide* (Bumetanide*) 1 Mg Tablet, 1 MG PO BID DIURETICS, #60 TAB 3 Refills Prov:SOFI RENTERIA. 08/03/18 Allergies Allergies: Coded Allergies: Penicillins (Unverified Allergy, Mild, 09/01/18) PMhx/Soc History of Surgery: Yes (PROSTATE SX CARDIAC STENT) Anesthesia Reaction: No Hx Neurological Disorder: Yes (GENERAL WEAKNESS) Hx Respiratory Disorders: Yes (CHF SOB) Hx Cardiac Disorders: Yes (HTN CHF CAD) Hx Psychiatric Problems: No Hx Miscellaneous Medical Probl: No Hx Alcohol Use: No Hx Substance Use: No Hx Tobacco Use: No Physical Exam Vitals Vital Signs Date Temp Pulse Resp B/P (MAP) Pulse Ox O2 O2 Flow FiO2 Time Delivery Rate 09/01/18 78 24 156/94 100 Nasal 4.0 18:59 (114) Cannula 09/01/18 98.0 76 22 133/77 100 Nasal 4.0 18:28 (95) Cannula 09/01/18 71 100 60 16:37 09/01/18 98.0 81 18 151/78 99 16:18 (102) Physical Exam Constitutional:Well-developed. Well-nourished. Severe respiratory distress HEENT:Normocephalic. Atraumatic.Pupils were equal round reactive to light. Moist mucous membranes.No tonsillar exudates. Neck: No nuchal rigidity. No lymphadenopathy. No posterior cervical spine tenderness or step-offs. Bilateral JVD with no neck swelling. Respiratory: Patient in severe respiratory distress, unable to speak more than 2 words at a time before becoming short of breath, using accessory muscles of respiration. Bilateral rhonchi. No wheezing. No rales. Cardiovascular: Regular rate regular rhythm.No murmurs. No rubs were appreciated.S1, S2 normal. Distal pulses are palpable 2+ bilaterally. GI: Abdomen was soft. Nontender. Non Distended. No pulsatile abdominal masses or bruits. No rebound. No guarding. Bowel sounds were present and normal. Muscle skeletal: Full range of motion of both the upper and lower extremities bilaterally.Normal muscle tone.No assymetrical calf tenderness or swelling. Skin: No petechia, no purpura. No lesions on the palms or the soles of the feet. No maculopapular rash. NEURO: Patient was alert, awake, orientated x3.No facial droop. Gait observed the patient had difficult time ambulating as he was in severe respiratory distress. Result Diagram: 09/01/18 1640 09/01/18 1640 Results 24 hrs Laboratory Tests Test 09/01/18 16:40 09/01/18 16:52 White Blood Count 6.4 10^3/ul Red Blood Count 3.68 10^6/ul Hemoglobin 9.3 g/dl Hematocrit 29.7 % Mean Corpuscular Volume 80.7 fl Mean Corpuscular Hemoglobin 25.3 pg Mean Corpuscular Hemoglobin Concent 31.3 g/dl Red Cell Distribution Width 16.1 % Platelet Count 270 10^3/UL Mean Platelet Volume 10.5 fl Immature Granulocytes % 0.200 % Neutrophils % 73.8 % Lymphocytes % 8.6 % Monocytes % 12.5 % Eosinophils % 3.7 % Basophils % 1.2 % Nucleated Red Blood Cells % 0.0 /100WBC Immature Granulocytes # 0.010 10^3/ul Neutrophils # 4.7 10^3/ul Lymphocytes # 0.6 10^3/ul Monocytes # 0.8 10^3/ul Eosinophils # 0.2 10^3/ul Basophils # 0.1 10^3/ul Nucleated Red Blood Cells # 0.0 10^3/ul Prothrombin Time 12.8 Sec Prothrombin Time Ratio 1.0 INR International Normalized Ratio 0.95 Activated Partial Thromboplast Time 31.2 Sec Sodium Level 136 mmol/L Potassium Level 4.3 mmol/L Chloride Level 96 mmol/L Carbon Dioxide Level 26 mmol/L Anion Gap 14 Blood Urea Nitrogen 57 mg/dl Creatinine 2.51 mg/dl Est Glomerular Filtrat Rate mL/min mL/min Glucose Level 325 mg/dl Calcium Level 9.1 mg/dl Total Bilirubin 0.6 mg/dl Direct Bilirubin 0.00 mg/dl Indirect Bilirubin 0.6 mg/dl Aspartate Amino Transf (AST/SGOT) 20 IU/L Alanine Aminotransferase (ALT/SGPT) 26 IU/L Alkaline Phosphatase 104 IU/L Creatine Kinase 59 IU/L Creatine Kinase Index 2.1 Creatinine Kinase MB (Mass) 1.21 ng/ml Troponin I 0.035 ng/ml B-Type Natriuretic Peptide 55269 PG/ML Total Protein 6.5 g/dl Albumin 3.8 g/dl Globulin 2.70 g/dl Albumin/Globulin Ratio 1.40 POC Venous Lactate 2.3 mmol/L Current Medications Medications Dose Sig/Monty Start Time Status Last (Trade) Ordered Route PRN Stop Time Admin Dose Reason Admin Albuterol 10 mg ONCE STAT 09/01/18 DC 09/01/18 (Proventil INH 16:28 16:42 0.5% (Neb)) 09/01/18 16:30 Ipratropium 1 mg ONCE STAT 09/01/18 DC 09/01/18 [place] INH 16:28 16:42 (Atrovent 09/01/18 16:30 0.02% (Neb)) Aspirin 325 mg ONCE STAT 09/01/18 DC 09/01/18 (Aspirin) PO 16:52 16:59 09/01/18 16:53 1 tab Q5M UP TO 3 09/01/18 Nitroglycerin DOSES PRN 17:00 SL .CHEST (Nitroglyceri PAIN n (Sl Tab) 0.4 Mg) Vancomycin 250 ml @ ONCE STAT 09/01/18 DC 09/01/18 HCl 125 mls/hr IVPB 16:53 18:27 09/01/18 18:52 150 ml @ ONCE STAT 09/01/18 DC 09/01/18 Levofloxacin/ 100 mls/hr IVPB 16:53 16:59 Dextrose 09/01/18 18:22 Sodium 250 ml @ Q1H STAT 09/01/18 DC 09/01/18 Chloride 250 mls/hr IV 16:53 17:00 09/01/18 17:52 25 mg ONCE ONCE 09/01/18 DC 09/01/18 Diphenhydrami IV 19:00 18:41 ne HCl 09/01/18 19:01 (Benadryl) Ondansetron 4 mg ER BRIDGE 09/01/18 HCl (Zofran PRN IV 19:30 Inj) NAUSEA/VOMITI 09/02/18 19:29 NG 650 mg ER BRIDGE 09/01/18 Acetaminophen PRN PO 19:30 (Tylenol .MILD PAIN 09/02/18 19:29 Tab) 1-3 OR TEMP Procedures/MDM The patient presented to the emergency department with shortness of breath. My differential diagnosis included but was not limited to upper airway obstruction, CHF, pulmonary embolism, cardiac ischemia, pneumonia, pneumothorax, anemia, drug overdose, pulmonary edema, COPD or asthma. Patient IV access established by nursing staff was placed in a health sanitarian continuous pulse oximetry. The patient was placed on noninvasive mechanical ventilation for severe respiratory distress which was thought to be due to a decompensated acute CHF exacerbation. He was also given nebulizer treatments of albuterol and Atrovent. The patient is also complaining of chest pain. He was given aspirin and nitroglycerin. There is no improvement of his chest pain. 12 Lead EKG tracing ordered and reviewed by myself showed: Normal sinus rhythm of 81 bpm and no arrhythmia. IL interval prolonged at 214 ms with a first-degree AV block. Left bundle branch block. Left axis deviation QRS duration widened at [address] segment elevation No ST segment depression. No changes consistent with acute ischemia. The patient also met Sirs criteria. POC lactate was elevated. Patient's infectious symptoms have not stabilized and the patient is at risk of rapid decompensation. The patient will be admitted for careful hydration, antibiotic therapy, and infectious source control. Severe Sepsis Assessment: Infectious Source: Suspected pneumonia End organ damage indicated by: Lactate > 2.0 mmol/L Acute Resp Failure (sat < 92% w/o oxygen) Severe Sepsis Managment: Blood Cultures X 2 before broad spectrum antibiotics initiated within 3 hours of recognition. 30 ml/kg NS bolus Completed Initial Lactate: 2.4 Repeat Lactate pending Critical Care: Time: [XOXOXO] minutes Treatments/Evaluations: Emergent fluid management, while maintaining close respiratory support. Immediate broad spectrum antibiotic therapy. Simultaneous assessment for possible sources in order to direct therapy. Consideration for invasive and chemical support to prevent respiratory or cardiac collapse. Septic Shock Assessment (1 hour post 30 ml/kg fluid bolus): Hypotension (SBP < 90 or 40 mmHg drop, MAP < 65): No Lactic acid > 4.0 No I considered further perfusion assessment with CVP measurement, SCVO2, bedside ultrasound volume assessment, passive leg raise, trial of further fluid bolus. And preceded with gentle IV fluids given that patient has a history of congestive heart failure and did not want to worsen the patient's respiratory distress with pulmonary edema and fluid overload. The patient was hyperglycemic without ketosis. The patient will be admitted to the hospitalist Dr. Santiago in serious condition. The patient's respiratory distress had significantly improved once he was placed on the BiPAP. Critical Care: Time: 75 minutes Treatments/Evaluations: Close monitoring and treatment of unstable vital signs, cardiorespiratory, and neurologic status, while maintaining tight balance of fluid, respiratory, and cardiac interventions. Time does not include performing any of the above billable procedures. Departure Diagnosis: Primary Impression: CHF (congestive heart failure) Heart failure type: unspecified Heart failure chronicity: acute on chronic Qualified Codes: I50.9 - Heart failure, unspecified Additional Impression: Chest pain Chest pain type: unspecified Qualified Codes: R07.9 - Chest pain, unspecified Condition: Serious KAMAR COSTELLO MD Sep 01, 2018 16:51
[2018-09-01] MEDS ORDERED: ASPIRIN 325 MG TAB PO STA (16:52)
[2018-09-01] MEDS ORDERED: LEVOFLOXACIN 750MG/D5W (PMX) 150 ML IVPB STA (16:53)
[2018-09-01] MEDS ORDERED: VANCOMYCIN 1 GM (PMX) 250 ML IVPB STA (16:53)
[2018-09-01] MEDS ORDERED: SOD CHLORIDE 0.9% 250 ML IV STA (16:53)
[2018-09-01] MEDS ORDERED: NITROGLYCERIN (SL) 0.4 MG TAB SL PRN ×2 (17:00→19:30)
[2018-09-01] MEDS ORDERED: DIPHENHYDRAMINE 50 MG INJ IV ONE (19:00)
[2018-09-01] MEDS ORDERED: DOCUSATE SODIUM 100 MG CAP PO PRN (19:30)
[2018-09-01] MEDS ORDERED: NACL 0.9% 3 ML SYG IV SCH (19:30)
[2018-09-01] MEDS ORDERED: LORAZEPAM 2 MG INJ IV PRN (19:30)
[2018-09-01] MEDS ORDERED: MAGNESIUM HYDROXIDE 30ML CUP PO PRN (19:30)
[2018-09-01] MEDS ORDERED: ACETAMINOPHEN 325 MG TAB PO PRN ×2 (19:30)
[2018-09-01] MEDS ORDERED: ONDANSETRON 4 MG INJ IV PRN ×2 (19:30)
[2018-09-01] MEDS ORDERED: hydrALAzine 20 MG INJ IV PRN (19:30)
[2018-09-01] MEDS ORDERED: ALBUTEROL/IPRATROPIUM (NEB) 3 ML AMP HHN PRN (19:30)
[2018-09-01] MEDS ORDERED: morphine 2 MG INJ IV PRN (19:30)
[2018-09-01] MEDS ORDERED: NON-FORMULARY/PATIENT OWN MED (Liraglutide (Victoza 3-Pak) 1.8 MG) SQ SCH (21:00)
[2018-09-01] MEDS ORDERED: [UNRECOGNIZED DRUG - OTHER] SQ SCH (21:00)
[2018-09-01] MEDS ORDERED: INSULIN GLARGINE HUM REC ANLOG 42 UNIT SQ SCH (21:00)
[2018-09-01] MEDS ORDERED: NON-FORMULARY/PATIENT OWN MED (Omega-3 Acid Ethyl Esters (Lovaza) 2 GM) PO SCH (21:00)
[2018-09-01] MEDS: BUMETANIDE 1 MG TAB PO SCH (21:57)
[2018-09-01] MEDS: APIXABAN 5 MG TABLET PO SCH (21:58)
[2018-09-01] MEDS: FISH OIL 1,000 MG CAP PO SCH (21:58)
[2018-09-02] VITALS (7 sets, daily range): BP systolic 128–155; BP diastolic 64–89; PULSE 67–82; RESP 18–20; Ht 162.6 cm; Wt 76.7 kg
[2018-09-02] MEDS: BUMETANIDE 1 MG TAB PO SCH ×2 (05:51→18:10)
--- NOTE | 2018-09-02 07:13 | HP ---
Date/Time of Note Date/Time of Note DATE: 09/01/18 TIME: 23:30 Assessment/Plan VTE Prophylaxis Pharmacological prophylaxis: apixaban Lines/Catheters IV [facility]ter Type [facility]from [facility] Saline Lock Assessment/Plan Assessment/Plan 1. Acute on chronic CHF exacerbation, systolic -Recent 2D echo with a EF of 20-25% -Monitor in telemetry unit -Diuresis -Continue beta-abraham. Patient not on ACEI. Will leave the decision up to cardiology -Cardiology consult 2. Type 1 diabetes: Insulin 3. Dyslipidemia: Statin 4. History of CAD -Continue antiplatelet, statin and cardiac meds 5. CKD: Stable 6. Hypertension: Adjust BP meds as needed -Home medication does not include ACEI. Cardiology to decide 7. Anemia: Hemoglobin has been progressively trending down -No reported GI bleed. Patient on apixaban at home -Check FOBT, ferritin/iron -GI consult as needed Result Diagram: 09/02/18 0530 09/02/18 0530 Results 24hrs Laboratory Tests Test 09/01/18 16:40 09/01/18 16:52 09/01/18 19:04 09/01/18 21:18 White Blood Count 6.4 # Red Blood Count 3.68 L Hemoglobin 9.3 L Hematocrit 29.7 L Mean Corpuscular 80.7 L Volume Mean Corpuscular 25.3 L Hemoglobin Mean Corpuscular 31.3 L Hemoglobin Concent Red Cell 16.1 H Distribution Width Platelet Count 270 Mean Platelet Volume 10.5 H Immature 0.200 Granulocytes % Neutrophils % 73.8 Lymphocytes % 8.6 L Monocytes % 12.5 H Eosinophils % 3.7 Basophils % 1.2 Nucleated Red Blood 0.0 Cells % Immature 0.010 Granulocytes # Neutrophils # 4.7 Lymphocytes # 0.6 L Monocytes # 0.8 Eosinophils # 0.2 Basophils # 0.1 Nucleated Red Blood 0.0 Cells # Prothrombin Time 12.8 Prothrombin Time 1.0 Ratio INR International 0.95 Normalized Ratio Activated 31.2 Partial Thromboplast Time Sodium Level 136 Potassium Level 4.3 Chloride Level 96 L Carbon Dioxide Level 26 Anion Gap 14 H Blood Urea Nitrogen 57 H Creatinine 2.51 H Est Glomerular Filtrat Rate mL/min Glucose Level 325 H Calcium Level 9.1 Total Bilirubin 0.6 Direct Bilirubin 0.00 Indirect Bilirubin 0.6 Aspartate Amino 20 Transf (AST/SGOT) Alanine 26 Aminotransferase (AL T/SGPT) Alkaline Phosphatase 104 Creatine Kinase 59 Creatine Kinase 2.1 Index Creatinine Kinase MB 1.21 (Mass) Troponin I 0.035 B-Type Natriuretic 41865 H Peptide Total Protein 6.5 Albumin 3.8 Globulin 2.70 Albumin/Globulin 1.40 Ratio Free Thyroxine 1.63 POC Venous Lactate 2.3 *H Lactic Acid Level 1.6 1.1 Test 09/02/18 01:49 09/02/18 05:30 Bedside Glucose 123 White Blood Count 8.2 # Red Blood Count 3.36 L Hemoglobin 8.5 L Hematocrit 27.1 L Mean Corpuscular 80.7 L Volume Mean Corpuscular 25.3 L Hemoglobin Mean Corpuscular 31.4 L Hemoglobin Concent Red Cell 15.8 H Distribution Width Platelet Count 238 Mean Platelet Volume 10.0 Immature 0.200 Granulocytes % Neutrophils % 72.0 Lymphocytes % 9.4 L Monocytes % 13.0 H Eosinophils % 4.5 Basophils % 0.9 Nucleated Red Blood 0.0 Cells % Immature 0.020 Granulocytes # Neutrophils # 5.9 Lymphocytes # 0.8 Monocytes # 1.1 H Eosinophils # 0.4 Basophils # 0.1 Nucleated Red Blood 0.0 Cells # Sodium Level 139 Potassium Level 3.9 Chloride Level 103 Carbon Dioxide Level 28 Anion Gap 8 Blood Urea Nitrogen 54 H Creatinine 2.51 H Est Glomerular Filtrat Rate mL/min Glucose Level 117 # Hemoglobin A1c 9.7 H Calcium Level 8.8 Phosphorus Level 4.4 Magnesium Level 2.1 HPI/ROS Admit Date/Time Admit Date/Time Sep 01, 2018 at 19:14 Hx of Present Illness Patient is a 72-year-old male with a history of cardiomyopathy was EF of 20%, type 1 diabetes, hypertension, dyslipidemia, NSVT, CAD, CKD. Patient presented to ER complaining of worsening shortness of breath and chest pain. Patient was discharged from here a month ago after he was admitted for CHF exacerbation. Symptoms worse when he lies in the supine position. When he presented to ER, blood pressure was 151/78. Chest x-ray shows pulmonary vascular congestion and pleural effusion. First troponin is negative. EKG shows LBBB and first-degree AV block. PMH/Family/Social Past Medical History Medical History: other (See HPI) Medications Current Medications Nitroglycerin (Nitroglycerin (Sl Tab) 0.4 Mg) 1 tab Q5M UP TO 3 DOSES PRN SL .CHEST PAIN; Start 09/01/18 at 17:00 Ondansetron HCl (Zofran Inj) 4 mg ER BRIDGE PRN IV NAUSEA/VOMITING; Start 09/01/18 at 19:30; Stop 09/02/18 at 19:29 Acetaminophen (Tylenol Tab) 650 mg ER BRIDGE PRN PO .MILD PAIN 1-3 OR TEMP; Start 09/01/18 at 19:30; Stop 09/02/18 at 19:29 IV Flush (NS 3 ml) 3 ml PER PROTOCOL IV ; Start 09/01/18 at 19:30 Ondansetron HCl (Zofran Inj) 4 mg Q6H PRN IV NAUSEA/VOMITING; Start 09/01/18 at 19:30 Acetaminophen (Tylenol Tab) 650 mg Q6H PRN PO .PAIN 1-3 OR TEMP; Start 09/01/18 at 19:30 Acetaminophen/ Hydrocodone Bitart ([place] (5/325)) 1 tab Q6H PRN PO .MOD PAIN 4- 6; Start 09/01/18 at 19:30 Morphine Sulfate (morphine) 2 mg Q4H PRN IV .SEVERE PAIN 7-10; Start 09/01/18 at 19:30 Docusate Sodium (Colace) 100 mg Q12H PRN PO .CONSTIPATION; Start 09/01/18 at 19:30 Magnesium Hydroxide (Milk Of Mag) 30 ml DAILY PRN PO .CONSTIPATION; Start 09/01/18 at 19:30 Lorazepam (Ativan) 0.5 mg Q6H PRN IV ANXIETY; Start 09/01/18 at 19:30 Albuterol/ Ipratropium (Duoneb) 3 ml Q4H RESP THERAPY PRN HHN SHORTNESS OF BREATH; Start 09/01/18 at 19:30 Hydralazine HCl (Apresoline) 10 mg Q6H PRN IV ELEVATED BLOOD PRESSURE; Start 09/01/18 at 19:30 Nitroglycerin (Nitroglycerin (Sl Tab) 0.4 Mg) 1 tab Q5M PRN SL ANGINA; Start 09/01/18 at 19:30 Apixaban (Eliquis) 2.5 mg BID PO Last administered on 09/01/18at 21:58; Admin Dose 2.5 MG; Start 09/01/18 at 21:00 Aspirin (Halfprin) 81 mg DAILY PO ; Start 09/02/18 at 09:00 Atorvastatin Calcium (Lipitor) 40 mg QHS PO ; Start 09/01/18 at 21:00 Bumetanide (Bumex) 1 mg BID DIURETICS PO Last administered on 09/02/18at 05:51; Admin Dose 1 MG; Start 09/01/18 at 21:00 Carvedilol (Coreg) 6.25 mg BID PO Last administered on 09/01/18at 21:58; Admin Dose 6.25 MG; Start 09/01/18 at 21:00 Hydralazine HCl (Apresoline) 100 mg BID PO Last administered on 09/01/18at 21:57; Admin Dose 100 MG; Start 09/01/18 at 21:00 Isosorbide Mononitrate (Imdur) 30 mg DAILY PO ; Start 09/02/18 at 09:00 Thiamine HCl (Vitamin B1) 100 mg DAILY PO ; Start 09/02/18 at 09:00 Miscellaneous Information 42 unit QPM SQ ; Start 09/01/18 at 21:00; Status UNV Miscellaneous Information 1.8 mg BID SQ ; Start 09/01/18 at 21:00; Status UNV Fish Oil (Fish Oil) 2,000 mg BID PO Last administered on 09/01/18at 21:58; Admin Dose 2,000 MG; Start 09/01/18 at 22:00 Coded Allergies: Penicillins (Unverified Allergy, Mild, 09/01/18) Past Surgical History Past Surgical Hx: other (See HPI) Family History Significant Family History: no pertinent family hx Social History Alcohol Use: other Smoking Status: Never smoker Drug Use: none Exam/Review of Systems Vital Signs Vitals Vital Signs Date Temp Pulse Resp B/P (MAP) Pulse Ox O2 O2 Flow FiO2 Time Delivery Rate 09/02/18 98.2 74 20 155/86 99 Room Air 07:05 (109) 09/02/18 2.0 01:10 09/01/18 60 16:37 Intake and Output 09/01/18 09/01/18 09/02/18 1515:00 23:00 07:00 IntakeIntake Total 400 ml 50 ml OutputOutput Total 200 ml BalanceBalance 400 ml -150 ml Exam Head: normocephalic, atraumatic Eyes: PERRL Respiratory: diminished breath sounds Cardiovascular: regular rate and rhythm, nl pulses Gastrointestinal: soft Extremities: edema DALILA TAVERAS MD Sep 02, 2018 07:13
--- NOTE | 2018-09-02 08:07 | EN ---
Date/Time of Note Date/Time of Note DATE: 09/02/18 TIME: 08:03 Event Note Medicine Medicine Event Note Hgb this am dropped to 6.3. Patient reported dark stool with last BM. Denied hx of hematemesis. PLAN -Repeat h/h -FOBT -GI consult -consider repeat u/s given paracentesis -transfuse as needed DALILA TAVERAS MD Sep 02, 2018 08:07
[2018-09-02] MEDS: ASPIRIN (EC) 81 MG TAB PO SCH (08:49)
[2018-09-02] MEDS: FISH OIL 1,000 MG CAP PO SCH ×2 (08:49→20:38)
[2018-09-02] MEDS: APIXABAN 5 MG TABLET PO SCH ×2 (08:49→20:38)
[2018-09-02] MEDS: THIAMINE 100 MG TAB PO SCH (08:50)
[2018-09-02] MEDS: ISOSORBIDE MONONITRATE(SR)30 MG TAB PO SCH (08:50)
--- NOTE | 2018-09-02 12:15 | PN ---
Date/Time of Note Date/Time of Note DATE: 09/02/18 TIME: 12:06 Assessment/Plan VTE Prophylaxis Risk score (from Ns)>0 risk: 7 SCD applied (from Ns): Yes Pharmacological prophylaxis: apixaban Lines/Catheters [facility]from [facility] Saline Lock Assessment/Plan Hospital Course 1. Acute on chronic CHF exacerbation, systolic -Recent 2D echo with a EF of 20-25% -Monitor in telemetry unit -Diuresis -Cardiology consult - o2 prn -PT eval 2. Type 1 diabetes: Insulin. Adjust as needed 3. Dyslipidemia: Statin 4. History of CAD -cardiac optimization 5. CKD: Stable 6. Hypertension: antihypertensives. 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 Will get nephrology consult to follow. Discussed POC with Dr. Reese Result Diagram: 09/02/18 0530 09/02/18 0530 Results 24hrs Laboratory Tests Test 09/01/18 16:40 09/01/18 16:52 09/01/18 19:04 09/01/18 21:18 White Blood Count 6.4 # Red Blood Count 3.68 L Hemoglobin 9.3 L Hematocrit 29.7 L Mean Corpuscular 80.7 L Volume Mean Corpuscular 25.3 L Hemoglobin Mean Corpuscular 31.3 L Hemoglobin Concent Red Cell 16.1 H Distribution Width Platelet Count 270 Mean Platelet Volume 10.5 H Immature 0.200 Granulocytes % Neutrophils % 73.8 Lymphocytes % 8.6 L Monocytes % 12.5 H Eosinophils % 3.7 Basophils % 1.2 Nucleated Red Blood 0.0 Cells % Immature 0.010 Granulocytes # Neutrophils # 4.7 Lymphocytes # 0.6 L Monocytes # 0.8 Eosinophils # 0.2 Basophils # 0.1 Nucleated Red Blood 0.0 Cells # Prothrombin Time 12.8 Prothrombin Time 1.0 Ratio INR International 0.95 Normalized Ratio Activated 31.2 Partial Thromboplast Time Sodium Level 136 Potassium Level 4.3 Chloride Level 96 L Carbon Dioxide Level 26 Anion Gap 14 H Blood Urea Nitrogen 57 H Creatinine 2.51 H Est Glomerular Filtrat Rate mL/min Glucose Level 325 H Calcium Level 9.1 Total Bilirubin 0.6 Direct Bilirubin 0.00 Indirect Bilirubin 0.6 Aspartate Amino 20 Transf (AST/SGOT) Alanine 26 Aminotransferase (AL T/SGPT) Alkaline Phosphatase 104 Creatine Kinase 59 Creatine Kinase 2.1 Index Creatinine Kinase MB 1.21 (Mass) Troponin I 0.035 B-Type Natriuretic 28850 H Peptide Total Protein 6.5 Albumin 3.8 Globulin 2.70 Albumin/Globulin 1.40 Ratio Free Thyroxine 1.63 POC Venous Lactate 2.3 *H Lactic Acid Level 1.6 1.1 Test 09/02/18 01:49 09/02/18 05:28 09/02/18 05:30 Bedside Glucose 123 Iron Level 29 L Total Iron Binding 333 Capacity Percent Iron 9 L Saturation Ferritin 35.3 White Blood Count 8.2 # Red Blood Count 3.36 L Hemoglobin 8.5 L Hematocrit 27.1 L Mean Corpuscular 80.7 L Volume Mean Corpuscular 25.3 L Hemoglobin Mean Corpuscular 31.4 L Hemoglobin Concent Red Cell 15.8 H Distribution Width Platelet Count 238 Mean Platelet Volume 10.0 Immature 0.200 Granulocytes % Neutrophils % 72.0 Lymphocytes % 9.4 L Monocytes % 13.0 H Eosinophils % 4.5 Basophils % 0.9 Nucleated Red Blood 0.0 Cells % Immature 0.020 Granulocytes # Neutrophils # 5.9 Lymphocytes # 0.8 Monocytes # 1.1 H Eosinophils # 0.4 Basophils # 0.1 Nucleated Red Blood 0.0 Cells # Sodium Level 139 Potassium Level 3.9 Chloride Level 103 Carbon Dioxide Level 28 Anion Gap 8 Blood Urea Nitrogen 54 H Creatinine 2.51 H Est Glomerular Filtrat Rate mL/min Glucose Level 117 # Hemoglobin A1c 9.7 H Calcium Level 8.8 Phosphorus Level 4.4 Magnesium Level 2.1 Triglycerides Level 71 Cholesterol Level 90 L LDL Cholesterol, 43 Calculated HDL Cholesterol 33 Cholesterol/HDL 2.7 Ratio Thyroid Stimulating 2.090 Hormone (TSH) Subjective 24 Hr Interval Summary Free Text/Dictation still with dyspnea on exertion. no reports of chest pain. 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, nl mental status, nl speech Results Results 24hrs Laboratory Tests Test 09/01/18 16:40 09/01/18 16:52 09/01/18 19:04 09/01/18 21:18 White Blood Count 6.4 # Red Blood Count 3.68 L Hemoglobin 9.3 L Hematocrit 29.7 L Mean Corpuscular 80.7 L Volume Mean Corpuscular 25.3 L Hemoglobin Mean Corpuscular 31.3 L Hemoglobin Concent Red Cell 16.1 H Distribution Width Platelet Count 270 Mean Platelet Volume 10.5 H Immature 0.200 Granulocytes % Neutrophils % 73.8 Lymphocytes % 8.6 L Monocytes % 12.5 H Eosinophils % 3.7 Basophils % 1.2 Nucleated Red Blood 0.0 Cells % Immature 0.010 Granulocytes # Neutrophils # 4.7 Lymphocytes # 0.6 L Monocytes # 0.8 Eosinophils # 0.2 Basophils # 0.1 Nucleated Red Blood 0.0 Cells # Prothrombin Time 12.8 Prothrombin Time 1.0 Ratio INR International 0.95 Normalized Ratio Activated 31.2 Partial Thromboplast Time Sodium Level 136 Potassium Level 4.3 Chloride Level 96 L Carbon Dioxide Level 26 Anion Gap 14 H Blood Urea Nitrogen 57 H Creatinine 2.51 H Est Glomerular Filtrat Rate mL/min Glucose Level 325 H Calcium Level 9.1 Total Bilirubin 0.6 Direct Bilirubin 0.00 Indirect Bilirubin 0.6 Aspartate Amino 20 Transf (AST/SGOT) Alanine 26 Aminotransferase (AL T/SGPT) Alkaline Phosphatase 104 Creatine Kinase 59 Creatine Kinase 2.1 Index Creatinine Kinase MB 1.21 (Mass) Troponin I 0.035 B-Type Natriuretic 07858 H Peptide Total Protein 6.5 Albumin 3.8 Globulin 2.70 Albumin/Globulin 1.40 Ratio Free Thyroxine 1.63 POC Venous Lactate 2.3 *H Lactic Acid Level 1.6 1.1 Test 09/02/18 01:49 09/02/18 05:28 09/02/18 05:30 Bedside Glucose 123 Iron Level 29 L Total Iron Binding 333 Capacity Percent Iron 9 L Saturation Ferritin 35.3 White Blood Count 8.2 # Red Blood Count 3.36 L Hemoglobin 8.5 L Hematocrit 27.1 L Mean Corpuscular 80.7 L Volume Mean Corpuscular 25.3 L Hemoglobin Mean Corpuscular 31.4 L Hemoglobin Concent Red Cell 15.8 H Distribution Width Platelet Count 238 Mean Platelet Volume 10.0 Immature 0.200 Granulocytes % Neutrophils % 72.0 Lymphocytes % 9.4 L Monocytes % 13.0 H Eosinophils % 4.5 Basophils % 0.9 Nucleated Red Blood 0.0 Cells % Immature 0.020 Granulocytes # Neutrophils # 5.9 Lymphocytes # 0.8 Monocytes # 1.1 H Eosinophils # 0.4 Basophils # 0.1 Nucleated Red Blood 0.0 Cells # Sodium Level 139 Potassium Level 3.9 Chloride Level 103 Carbon Dioxide Level 28 Anion Gap 8 Blood Urea Nitrogen 54 H Creatinine 2.51 H Est Glomerular Filtrat Rate mL/min Glucose Level 117 # Hemoglobin A1c 9.7 H Calcium Level 8.8 Phosphorus Level 4.4 Magnesium Level 2.1 Triglycerides Level 71 Cholesterol Level 90 L LDL Cholesterol, 43 Calculated HDL Cholesterol 33 Cholesterol/HDL 2.7 Ratio Thyroid Stimulating 2.090 Hormone (TSH) Medications Medication Current Medications IV Flush (NS 3 ml) 3 ml PER PROTOCOL IV ; Start 09/01/18 at 19:30 Ondansetron HCl (Zofran Inj) 4 mg Q6H PRN IV NAUSEA/VOMITING; Start 09/01/18 at 19:30 Acetaminophen (Tylenol Tab) 650 mg Q6H PRN PO .PAIN 1-3 OR TEMP; Start 09/01/18 at 19:30 Acetaminophen/ Hydrocodone Bitart ([place] (5/325)) 1 tab Q6H PRN PO .MOD PAIN 4- 6; Start 09/01/18 at 19:30 Morphine Sulfate (morphine) 2 mg Q4H PRN IV .SEVERE PAIN 7-10; Start 09/01/18 at 19:30 Docusate Sodium (Colace) 100 mg Q12H PRN PO .CONSTIPATION; Start 09/01/18 at 19:30 Magnesium Hydroxide (Milk Of Mag) 30 ml DAILY PRN PO .CONSTIPATION; Start 09/01/18 at 19:30 Lorazepam (Ativan) 0.5 mg Q6H PRN IV ANXIETY; Start 09/01/18 at 19:30 Albuterol/ Ipratropium (Duoneb) 3 ml Q4H RESP THERAPY PRN HHN SHORTNESS OF BREATH; Start 09/01/18 at 19:30 Hydralazine HCl (Apresoline) 10 mg Q6H PRN IV ELEVATED BLOOD PRESSURE; Start 09/01/18 at 19:30 Nitroglycerin (Nitroglycerin (Sl Tab) 0.4 Mg) 1 tab Q5M PRN SL ANGINA; Start at 19:30 Apixaban (Eliquis) 2.5 mg BID PO Last administered on 09/02/18 08:49; Admin Dose 2.5 MG; Start 09/01/18 at 21:00 Aspirin (Halfprin) 81 mg DAILY PO Last administered on 09/02/18 08:49; Admin Dose 81 MG; Start 09/02/18 at 09:00 Atorvastatin Calcium (Lipitor) 40 mg QHS PO ; Start 09/01/18 at 21:00 Bumetanide (Bumex) 1 mg BID DIURETICS PO Last administered on 09/02/18 05:51; Admin Dose 1 MG; Start 09/01/18 at 21:00 Carvedilol (Coreg) 6.25 mg BID PO Last administered on 09/02/18 08:50; Admin Dose 6.25 MG; Start 09/01/18 at 21:00 Hydralazine HCl (Apresoline) 100 mg BID PO Last administered on 09/02/18 08:51; Admin Dose 100 MG; Start 09/01/18 at 21:00 Isosorbide Mononitrate (Imdur) 30 mg DAILY PO Last administered on 09/02/18 08:50; Admin Dose 30 MG; Start 09/02/18 at 09:00 Thiamine HCl (Vitamin B1) 100 mg DAILY PO Last administered on 09/02/18 08:50; Admin Dose 100 MG; Start 09/02/18 at 09:00 Miscellaneous Information 42 unit QPM SQ ; Start 09/01/18 at 21:00; Status UNV Miscellaneous Information 1.8 mg BID SQ ; Start 09/01/18 at 21:00; Status UNV Fish Oil (Fish Oil) 2,000 mg BID PO Last administered on 09/02/18 08:49; Admin Dose 2,000 MG; Start 09/01/18 at 22:00 JAD SHIN NP Sep 02, 2018 12:14
--- NOTE | 2018-09-02 16:45 | CONS ---
DATE OF ADMISSION: 09/01/2018 DATE OF CONSULTATION: HISTORY OF PRESENT ILLNESS: The patient is a 72-year-old gentleman with past medical history of card iomyopathy, EF 20%, type 1 diabetes, hypertension and dyslipidemia, nonsustained ventricular tachycar nahomi, coronary artery disease, CKD. He presents to the hospital after noticing dyspnea and chest pain . The patient was in this hospital a month ago, seen by Dr. Ruiz. The patient had a similar pres entation with a congestive heart failure exacerbation. The patient was noted to have a CHF exacerbat ion again and an x-ray with pleural effusion with hypertension on presentation. The patient was admi tted with [id number] congestive heart failure exacerbation, type 1 diabetes, on insulin. Creat inine was noted to be 2.5. The patient has had previous history of CKD. The lowest creatinine on re cord was at 2.1. Discharged with a creatinine of 2.7. There has been no recent fevers, chills, naus ea, vomiting, chest pain, shortness of breath with evidence of effusion. No fevers, chills, nausea, vomiting. The patient denies history of frequent urinary tract infections or kidney stones. Denies nocturia. The patient was described as having CKD presumably from diabetes. PAST MEDICAL HISTORY: As above. MEDICATIONS: 1. Thiamine. 2. Bumex 1 mg. 3. Victoza. 4. Lovaza. 5. Eliquis. 6. Coreg. 7. Hydralazine 8. Isosorbide. 9. Aspirin. 10. Toujeo. 11. Atorvastatin. ALLERGIES: PATIENT IS ALLERGIC TO PENICILLIN. SOCIAL HISTORY: Does not smoke, drink or do drugs. FAMILY HISTORY: History of kidney disease. REVIEW OF SYSTEMS: A 14-point review of systems attempted and negative unless stated on exam. PHYSICAL EXAMINATION: VITAL SIGNS: We see temperature 97.9, blood pressure 128/64. HEENT: Normocephalic, atraumatic. Pupils equal and reactive to light. Oropharynx has moist mucous membranes. NECK: Supple. HEART: Regular rate and rhythm. LUNGS: Diminished breath sounds bilaterally. ABDOMEN: Soft, nontender, nondistended. Bowel sounds to auscultation. EXTREMITIES: No clubbing, cyanosis or edema. LABORATORY EVALUATION: White count 8.2, hemoglobin 8.9, hematocrit 29. Sodium is 139, potassium 3.9 , BUN 54, creatinine 2.51. UA is reviewed in microscopy. Chest x-ray was reviewed by the radiologis t. ASSESSMENT AND PLAN: 1. Acute kidney injury, nonoliguric on underlying CKD4. Labs today are better than previously but jones lechuga previous history of cardiorenal syndrome, he may need to tolerate some azotemia to achieve euvol emia. Watch labs daily. Quantify proteinuria. Imaging of kidney functions worsens. All medication s are dosed appropriately continue current diuretic regimen and adjust accordingly. 2. Acute decompensated heart failure and chronic kidney disease. Continue current medical managemen t. Continue diuretic regimen. Also monitor electrolytes and renal function closely. 3. Anemia. Hemoglobin has decreased since previous admission. A likely component of anemia of hoop maker amy kidney disease, likely benefit from Epogen fci. Iron saturation here was low. There may b e a component of blood loss anemia. Check stool for occult blood. 4. Type 1 diabetes, insulin adjust as needed. 5. Victoza. 6. Dyslipidemia. Continue statin. 9. History of coronary artery disease, cardiac optimization. 10. Hypertension, controlled at present, may benefit from LOLY inhibitor once kidney function is know n to be stable. Dictated By: COLE BLAKE MD DF/NTS Conf#: [id number] DID#: [id number] CC: DALILA TAVERAS MD;*EndCC*
[2018-09-02] MEDS ORDERED: BUMETANIDE 1 MG INJ IV ONE (17:00)
--- NOTE | 2018-09-02 17:00 | CONS ---
Assessment/Plan Cardiology NYHA: IV Heart Failure Type: Acute on Chronic Heart Failure Type: Both Assessment/Plan Hospital Course (Demo Recall) 72yo with acute on chronic systolic and diastolic heart failure, who states compliance with medications, has known noncompliance with LifeVest, and now is present with acute congestive heart failure. Recurrent heart failure episodes I suspect are related to him consuming more salt than what he thinks he consumes. Impression: Ac/chr sys and diastolic heart failure CAD ischemic cardiomyopathy CKD stage 4 Recommendations: Will give a single dose of a loop diuretic now, he does not seem that volume overloaded, based on CXR Continue home meds No LOLY/ARB due to CKD 4 Nutrition consultation, to better assess his dietary sodium intake and educate him Will also change his diet to a low sodium diet Consultation Date/Type/Reason Admit Date/Time Sep 01, 2018 at 19:14 Date of Consultation: Sep 02, 2018 Type of Consult Cardiology Reason for Consultation congestive heart failure Requesting Provider: JAD SHIN NP Date/Time of Note DATE: 09/02/18 TIME: 16:53 Hx of Present Illness 72 yo with cad, chf, reduced LVEF presents with worsening of his chronic dyspnea over the course of one day. At present he feels slightly better, but not significantly, has not received any IV loop diuretics yet. History obtained with [employer] riv[employer] sticker at [phone]. He states compliance with his medications. He prepares his own meals, which consists frequently of purchasing prepared tortillas, gorditas, pupusas, which he insists have no salt in them. He does however eat fruits and vegetables. Constitutional: no complaints Eyes: no complaints ENT: no complaints Respiratory: shortness of breath Cardiovascular: no complaints; No chest pain Gastrointestinal: no complaints Genitourinary: no complaints Musculoskeletal: no complaints Skin: no complaints Neurologic: no complaints Endocrine: no complaints Lymphatic: no complaints Psychological: no complaints Immunologic: no complaints Past Medical History Medical History: congestive heart failure, coronary artery disease, high cholesterol, hypertension Home Meds Active Scripts Thiamine* (Thiamine*) 100 Mg Tablet, 100 MG PO DAILY for 30 Days, #30 TAB Prov:CHUY HORTON MD 04/01/18 Reported Medications Bumetanide* (Bumetanide*) 1 Mg Tablet, 1 MG PO BID, TAB 09/01/18 Liraglutide (Victoza 3-Donnie) 0.6 Mg/0.1 Ml Pen.injctr, 1.8 MG SQ BID, SYR 07/30/18 [place]out-3 Acid Ethyl Esters (Lovaza) 1 Gm Capsule, 2 GM PO BID, CAP 07/30/18 Apixaban* (Eliquis*) 2.5 Mg Tablet, 2.5 MG PO BID, TAB 06/07/18 Carvedilol* (Carvedilol*) 6.25 Mg Tablet, 6.25 MG PO BID, #60 TAB 06/07/18 Hydralazine Hcl* (Hydralazine Hcl*) 100 Mg Tablet, 100 MG PO BID, #90 TAB 06/07/18 Isosorbide Mononitrate* (Isosorbide Mononitrate*) 30 Mg Tab.er.24h, 30 MG PO DAILY, TAB 03/20/18 Aspirin* (Aspirin* EC) 81 Mg Tablet.dr, 81 MG PO DAILY, TAB 03/04/18 Insulin Glargine,Hum.rec.anlog (Chhaya Boswell) 300 Unit/1 Ml Insuln.pen, 42 UNIT SQ QPM, EA 03/04/18 Atorvastatin* (Atorvastatin*) 40 Mg Tablet, 40 MG PO QHS, #30 TAB 03/04/18 Discontinued Scripts Bumetanide* (Bumetanide*) 1 Mg Tablet, 1 MG PO BID DIURETICS, #60 TAB 3 Refills Prov:SOFI RENTERIA S. 08/03/18 Medications Current Medications IV Flush (NS 3 ml) 3 ml PER PROTOCOL IV ; Start 09/01/18 at 19:30 Ondansetron HCl (Zofran Inj) 4 mg Q6H PRN IV NAUSEA/VOMITING; Start 09/01/18 at 19:30 Acetaminophen (Tylenol Tab) 650 mg Q6H PRN PO .PAIN 1-3 OR TEMP; Start 09/01/18 at 19:30 Acetaminophen/ Hydrocodone Bitart ([place] (5/325)) 1 tab Q6H PRN PO .MOD PAIN 4- 6; Start 09/01/18 at 19:30 Morphine Sulfate (morphine) 2 mg Q4H PRN IV .SEVERE PAIN 7-10; Start 09/01/18 at 19:30 Docusate Sodium (Colace) 100 mg Q12H PRN PO .CONSTIPATION; Start 09/01/18 at 19:30 Magnesium Hydroxide (Milk Of Mag) 30 ml DAILY PRN PO .CONSTIPATION; Start 09/01/18 at 19:30 Lorazepam (Ativan) 0.5 mg Q6H PRN IV ANXIETY; Start 09/01/18 at 19:30 Albuterol/ Ipratropium (Duoneb) 3 ml Q4H RESP THERAPY PRN HHN SHORTNESS OF BREATH; Start 09/01/18 at 19:30 Hydralazine HCl (Apresoline) 10 mg Q6H PRN IV ELEVATED BLOOD PRESSURE; Start 09/01/18 at 19:30 Nitroglycerin (Nitroglycerin (Sl Tab) 0.4 Mg) 1 tab Q5M PRN SL ANGINA; Start 09/01/18 at 19:30 Apixaban (Eliquis) 2.5 mg BID PO Last administered on 09/02/18at 08:49; Admin Dose 2.5 MG; Start 09/01/18 at 21:00 Aspirin (Halfprin) 81 mg DAILY PO Last administered on 09/02/18at 08:49; Admin Dose 81 MG; Start 09/02/18 at 09:00 Atorvastatin Calcium (Lipitor) 40 mg QHS PO ; Start 09/01/18 at 21:00 Bumetanide (Bumex) 1 mg BID DIURETICS PO Last administered on 09/02/18at 05:51; Admin Dose 1 MG; Start 09/01/18 at 21:00 Carvedilol (Coreg) 6.25 mg BID PO Last administered on 09/02/18at 08:50; Admin Dose 6.25 MG; Start 09/01/18 at 21:00 Hydralazine HCl (Apresoline) 100 mg BID PO Last administered on 09/02/18 08:51; Admin Dose 100 MG; Start 09/01/18 at 21:00 Isosorbide Mononitrate (Imdur) 30 mg DAILY PO Last administered on 09/02/18 08:50; Admin Dose 30 MG; Start 09/02/18 at 09:00 Thiamine HCl (Vitamin B1) 100 mg DAILY PO Last administered on 09/02/18at 08:50; Admin Dose 100 MG; Start 09/02/18 at 09:00 Miscellaneous Information 42 unit QPM SQ ; Start 09/01/18 at 21:00; Status UNV Miscellaneous Information 1.8 mg BID SQ ; Start 09/01/18 at 21:00; Status UNV Fish Oil (Fish Oil) 2,000 mg BID PO Last administered on 09/02/18at 08:49; Admin Dose 2,000 MG; Start 09/01/18 at 22:00 Allergies: Coded Allergies: Penicillins (Unverified Allergy, Mild, 09/01/18) Past Surgical History Past Surgical Hx: other (See HPI) Social History Smoking Status: Never smoker Drug Use: none Exam/Review of Systems Vital Signs Vitals Vital Signs Date Temp Pulse Resp B/P (MAP) Pulse Ox O2 O2 Flow FiO2 Time Delivery Rate 09/02/18 97.7 72 20 143/67 95 Room Air 15:12 (92) 09/02/18 2.0 13:33 09/01/18 60 16:37 Intake and Output 09/01/18 09/01/18 09/02/18 1515:00 23:00 07:00 IntakeIntake Total 400 ml 50 ml OutputOutput Total 200 ml BalanceBalance 400 ml -150 ml Exam Constitutional: alert, oriented, well developed Psych: no complaints Head: normocephalic, atraumatic Eyes: EOMI, nl lids ENMT: nl external ears & nose Neck: supple; No jvd, No bruits Respiratory: clear to auscultation, normal air movement Cardiovascular: regular rate and rhythm; No jugular venous distention (JVD), No murmurs/extra sounds Gastrointestinal: soft, nl liver, spleen, non-tender Musculoskeletal: nl extremities to inspection Extremities: No edema Neurological: nl mental status, nl speech Skin: nl turgor Labs Result Diagram: 09/02/18 1220 09/02/18 0530 Results 24hrs Laboratory Tests Test 09/01/18 19:04 09/01/18 21:18 09/02/18 01:49 09/02/18 05:28 Lactic Acid Level 1.6 1.1 Bedside Glucose 123 Iron Level 29 L Total Iron Binding 333 Capacity Percent Iron 9 L Saturation Ferritin 35.3 Test 09/02/18 05:30 09/02/18 11:20 09/02/18 12:20 White Blood Count 8.2 # Red Blood Count 3.36 L Hemoglobin 8.5 L 8.9 L Hematocrit 27.1 L 28.9 L Mean Corpuscular 80.7 L Volume Mean Corpuscular 25.3 L Hemoglobin Mean Corpuscular 31.4 L Hemoglobin Concent Red Cell 15.8 H Distribution Width Platelet Count 238 Mean Platelet Volume 10.0 Immature 0.200 Granulocytes % Neutrophils % 72.0 Lymphocytes % 9.4 L Monocytes % 13.0 H Eosinophils % 4.5 Basophils % 0.9 Nucleated Red Blood 0.0 Cells % Immature 0.020 Granulocytes # Neutrophils # 5.9 Lymphocytes # 0.8 Monocytes # 1.1 H Eosinophils # 0.4 Basophils # 0.1 Nucleated Red Blood 0.0 Cells # Sodium Level 139 Potassium Level 3.9 Chloride Level 103 Carbon Dioxide Level 28 Anion Gap 8 Blood Urea Nitrogen 54 H Creatinine 2.51 H Est Glomerular Filtrat Rate mL/min Glucose Level 117 # Hemoglobin A1c 9.7 H Calcium Level 8.8 Phosphorus Level 4.4 Magnesium Level 2.1 Triglycerides Level 71 Cholesterol Level 90 L LDL Cholesterol, 43 Calculated HDL Cholesterol 33 Cholesterol/HDL 2.7 Ratio Thyroid Stimulating 2.090 Hormone (TSH) Urine Color STRAW Urine Clarity CLEAR Urine pH 7.0 Urine Specific 1.006 [place] Urine Ketones NEGATIVE Urine Nitrite NEGATIVE Urine Bilirubin NEGATIVE Urine Urobilinogen NEGATIVE Urine Leukocyte NEGATIVE Esterase Urine Microscopic 1 RBC Urine Microscopic 0 WBC Urine Hemoglobin NEGATIVE Urine Glucose NEGATIVE Urine Total Protein 2+ H Imaging Imaging EKG shows nsr at 81 bpm with first degree av block, LBBB Medications Medications Current Medications IV Flush (NS 3 ml) 3 ml PER PROTOCOL IV ; Start 09/01/18 at 19:30 Ondansetron HCl (Zofran Inj) 4 mg Q6H PRN IV NAUSEA/VOMITING; Start 09/01/18 at 19:30 Acetaminophen (Tylenol Tab) 650 mg Q6H PRN PO .PAIN 1-3 OR TEMP; Start 09/01/18 at 19:30 Acetaminophen/ Hydrocodone Bitart ([place] (5/325)) 1 tab Q6H PRN PO .MOD PAIN 4- 6; Start 09/01/18 at 19:30 Morphine Sulfate (morphine) 2 mg Q4H PRN IV .SEVERE PAIN 7-10; Start 09/01/18 at 19:30 Docusate Sodium (Colace) 100 mg Q12H PRN PO .CONSTIPATION; Start 09/01/18 at 19:30 Magnesium Hydroxide (Milk Of Mag) 30 ml DAILY PRN PO .CONSTIPATION; Start 09/01/18 at 19:30 Lorazepam (Ativan) 0.5 mg Q6H PRN IV ANXIETY; Start 09/01/18 at 19:30 Albuterol/ Ipratropium (Duoneb) 3 ml Q4H RESP THERAPY PRN HHN SHORTNESS OF BREATH; Start 09/01/18 at 19:30 Hydralazine HCl (Apresoline) 10 mg Q6H PRN IV ELEVATED BLOOD PRESSURE; Start 09/01/18 at 19:30 Nitroglycerin (Nitroglycerin (Sl Tab) 0.4 Mg) 1 tab Q5M PRN SL ANGINA; Start 09/01/18 at 19:30 Apixaban (Eliquis) 2.5 mg BID PO Last administered on 09/02/18at 08:49; Admin Dose 2.5 MG; Start 09/01/18 at 21:00 Aspirin (Halfprin) 81 mg DAILY PO Last administered on 09/02/18at 08:49; Admin Dose 81 MG; Start 09/02/18 at 09:00 Atorvastatin Calcium (Lipitor) 40 mg QHS PO ; Start 09/01/18 at 21:00 Bumetanide (Bumex) 1 mg BID DIURETICS PO Last administered on 09/02/18 05:51; Admin Dose 1 MG; Start 09/01/18 at 21:00 Carvedilol (Coreg) 6.25 mg BID PO Last administered on 09/02/18 08:50; Admin Dose 6.25 MG; Start 09/01/18 at 21:00 Hydralazine HCl (Apresoline) 100 mg BID PO Last administered on 09/02/18 08:51; Admin Dose 100 MG; Start 09/01/18 at 21:00 Isosorbide Mononitrate (Imdur) 30 mg DAILY PO Last administered on 09/02/18 08:50; Admin Dose 30 MG; Start 09/02/18 at 09:00 Thiamine HCl (Vitamin B1) 100 mg DAILY PO Last administered on 09/02/18at 08:50; Admin Dose 100 MG; Start 09/02/18 at 09:00 Miscellaneous Information 42 unit QPM SQ ; Start 09/01/18 at 21:00; Status UNV Miscellaneous Information 1.8 mg BID SQ ; Start 09/01/18 at 21:00; Status UNV Fish Oil (Fish Oil) 2,000 mg BID PO Last administered on 09/02/18at 08:49; Admin Dose 2,000 MG; Start 09/01/18 at 22:00 DELROY DE LEON Sep 02, 2018 17:00
[2018-09-02] MEDS: ATORVASTATIN 40 MG TAB PO SCH (20:38)
[2018-09-03 04:14] VITALS: BP 148/84; PULSE 72; RESP 18
[2018-09-03] MEDS: BUMETANIDE 1 MG TAB PO SCH ×2 (05:39→17:37)
[2018-09-03 07:26] VITALS: BP 158/87; PULSE 76; RESP 22
--- NOTE | 2018-09-03 07:58 | CONS ---
Consult Date/Type/Reason Admit Date/Time Sep 01, 2018 at 19:14 Initial Consult Date 09/02/18 Requesting Provider: JAD SHIN NP Date/Time of Note DATE: 09/03/18 TIME: 07:48 Subjective 72-year-old gentleman with past medical history of cardiomyopathy, EF 20%, type 1 diabetes, hypertension and dyslipidemia, nonsustained ventricular tachycardia, coronary artery disease, CKD. He presents to the hospital after noticing dyspnea and chest pain. The patient was in this hospital a month ago, seen by Dr. Ruiz. The patient had a similar presentation with a congestive heart f ailure exacerbation. The patient was noted to have a CHF exacerbation again and an x-ray with pleural effusion with hypertension on presentation. The patient was admitted with [id number] congestive heart failure exacerbation, type 1 diabetes, on insulin. Creatinine was noted to be 2.5. The patient has had previous history of CKD. The lowest creatinine on record was at 2.1. Discharged with a creatinine of 2.7. There has been no recent fevers, chills, nausea, vomiting, chest pain, shortness of breath with evidence of effusion. No fevers, chills, nausea, vomiting. The patient denies history of frequent urinary tract infections or kidney stones. Denies nocturia. The patient was described as having CKD presumably from diabetes. PHYSICAL EXAMINATION: HEENT: Normocephalic, atraumatic. Pupils equal and reactive to light. Oropharynx has moist mucous membranes. NECK: Supple. HEART: Regular rate and rhythm. LUNGS: Diminished breath sounds bilaterally. ABDOMEN: Soft, nontender, nondistended. Bowel sounds to auscultation. EXTREMITIES: No clubbing, cyanosis or edema. Objective Vitals Vital Signs Date Temp Pulse Resp B/P (MAP) Pulse Ox O2 O2 Flow FiO2 Time Delivery Rate 09/03/18 97.8 76 22 158/87 96 Nasal 2.0 07:26 (110) Cannula 09/03/18 27 06:00 Intake and Output 09/02/18 09/02/18 09/03/18 1515:00 23:00 07:00 IntakeIntake Total 290 ml 240 ml 300 ml OutputOutput Total 1200 ml 300 ml 575 ml BalanceBalance -910 ml -60 ml -275 ml Results/Medications Result Diagram: 09/03/18 0607 09/03/18 0607 Results 24 hrs Laboratory Tests Test 09/02/18 11:20 09/02/18 12:20 09/03/18 06:07 Urine Color STRAW Urine Clarity CLEAR Urine pH 7.0 Urine Specific [place] 1.006 Urine Ketones NEGATIVE Urine Nitrite NEGATIVE Urine Bilirubin NEGATIVE Urine Urobilinogen NEGATIVE Urine Leukocyte Esterase NEGATIVE Urine Microscopic RBC 1 Urine Microscopic WBC 0 Urine Hemoglobin NEGATIVE Urine Glucose NEGATIVE Urine Total Protein 2+ H Hemoglobin 8.9 L 8.9 L Hematocrit 28.9 L 28.6 L White Blood Count 7.3 Red Blood Count 3.57 L Mean Corpuscular Volume 80.1 L Mean Corpuscular Hemoglobin 24.9 L Mean Corpuscular Hemoglobin Concent 31.1 L Red Cell Distribution Width 15.9 H Platelet Count 256 Mean Platelet Volume 10.1 Immature Granulocytes % 0.400 Neutrophils % 71.1 Lymphocytes % 9.1 L Monocytes % 13.5 H Eosinophils % 4.8 Basophils % 1.1 Nucleated Red Blood Cells % 0.0 Immature Granulocytes # 0.030 Neutrophils # 5.2 Lymphocytes # 0.7 L Monocytes # 1.0 H Eosinophils # 0.4 Basophils # 0.1 Nucleated Red Blood Cells # 0.0 Sodium Level 138 Potassium Level 3.7 Chloride Level 101 Carbon Dioxide Level 28 Anion Gap 9 Blood Urea Nitrogen 61 H Creatinine 2.65 H Est Glomerular Filtrat Rate mL/min Glucose Level 180 Calcium Level 9.1 Home Meds Active Scripts Thiamine* (Thiamine*) 100 Mg Tablet, 100 MG PO DAILY for 30 Days, #30 TAB Prov:CHUY HORTON MD 04/01/18 Reported Medications Bumetanide* (Bumetanide*) 1 Mg Tablet, 1 MG PO BID, TAB 09/01/18 Liraglutide (Victoza 3-Donnie) 0.6 Mg/0.1 Ml Pen.injctr, 1.8 MG SQ BID, SYR 07/30/18 [place]-3 Acid Ethyl Esters (Lovaza) 1 Gm Capsule, 2 GM PO BID, CAP 07/30/18 Apixaban* (Eliquis*) 2.5 Mg Tablet, 2.5 MG PO BID, TAB 06/07/18 Carvedilol* (Carvedilol*) 6.25 Mg Tablet, 6.25 MG PO BID, #60 TAB 06/07/18 Hydralazine Hcl* (Hydralazine Hcl*) 100 Mg Tablet, 100 MG PO BID, #90 TAB 06/07/18 Isosorbide Mononitrate* (Isosorbide Mononitrate*) 30 Mg Tab.er.24h, 30 MG PO DAILY, TAB 03/20/18 Aspirin* (Aspirin* EC) 81 Mg Tablet.dr, 81 MG PO DAILY, TAB 03/04/18 Insulin Glargine,Hum.rec.anlog (Chhaya Meccaviviane) 300 Unit/1 Ml Insuln.pen, 42 UNIT SQ QPM, EA 03/04/18 Atorvastatin* (Atorvastatin*) 40 Mg Tablet, 40 MG PO QHS, #30 TAB 03/04/18 Discontinued Scripts Bumetanide* (Bumetanide*) 1 Mg Tablet, 1 MG PO BID DIURETICS, #60 TAB 3 Refills Prov:SOIF RENTERIA S. 08/03/18 Medications Current Medications IV Flush (NS 3 ml) 3 ml PER PROTOCOL IV ; Start 09/01/18 at 19:30 Ondansetron HCl (Zofran Inj) 4 mg Q6H PRN IV NAUSEA/VOMITING; Start 09/01/18 at 19:30 Acetaminophen (Tylenol Tab) 650 mg Q6H PRN PO .PAIN 1-3 OR TEMP; Start 09/01/18 at 19:30 Acetaminophen/ Hydrocodone Bitart ([place] (5/325)) 1 tab Q6H PRN PO .MOD PAIN 4- 6; Start 09/01/18 at 19:30 Morphine Sulfate (morphine) 2 mg Q4H PRN IV .SEVERE PAIN 7-10; Start 09/01/18 at 19:30 Docusate Sodium (Colace) 100 mg Q12H PRN PO .CONSTIPATION; Start 09/01/18 at 19:30 Magnesium Hydroxide (Milk Of Mag) 30 ml DAILY PRN PO .CONSTIPATION; Start 09/01/18 at 19:30 Lorazepam (Ativan) 0.5 mg Q6H PRN IV ANXIETY; Start 09/01/18 at 19:30 Albuterol/ Ipratropium (Duoneb) 3 ml Q4H RESP THERAPY PRN HHN SHORTNESS OF BREATH; Start 09/01/18 at 19:30 Hydralazine HCl (Apresoline) 10 mg Q6H PRN IV ELEVATED BLOOD PRESSURE; Start 09/01/18 at 19:30 Nitroglycerin (Nitroglycerin (Sl Tab) 0.4 Mg) 1 tab Q5M PRN SL ANGINA; Start 09/01/18 at 19:30 Apixaban (Eliquis) 2.5 mg BID PO Last administered on 09/02/18at 20:38; Admin Dose 2.5 MG; Start 09/01/18 at 21:00 Aspirin (Halfprin) 81 mg DAILY PO Last administered on 09/02/18at 08:49; Admin Dose 81 MG; Start 09/02/18 at 09:00 Atorvastatin Calcium (Lipitor) 40 mg QHS PO Last administered on 09/02/18 20:38; Admin Dose 40 MG; Start 09/01/18 at 21:00 Bumetanide (Bumex) 1 mg BID DIURETICS PO Last administered on 09/03/18at 05:39; Admin Dose 1 MG; Start 09/01/18 at 21:00 Carvedilol (Coreg) 6.25 mg BID PO Last administered on 09/02/18 20:38; Admin Dose 6.25 MG; Start 09/01/18 at 21:00 Hydralazine HCl (Apresoline) 100 mg BID PO Last administered on 09/02/18 20:38; Admin Dose 100 MG; Start 09/01/18 at 21:00 Isosorbide Mononitrate (Imdur) 30 mg DAILY PO Last administered on 09/02/18 08:50; Admin Dose 30 MG; Start 09/02/18 at 09:00 Thiamine HCl (Vitamin B1) 100 mg DAILY PO Last administered on 09/02/18at 08:50; Admin Dose 100 MG; Start 09/02/18 at 09:00 Miscellaneous Information 42 unit QPM SQ ; Start 09/01/18 at 21:00; Status UNV Miscellaneous Information 1.8 mg BID SQ ; Start 09/01/18 at 21:00; Status UNV Fish Oil (Fish Oil) 2,000 mg BID PO Last administered on 09/02/18at 20:38; Admin Dose 2,000 MG; Start 09/01/18 at 22:00 Assessment/Plan Hospital Course (Demo Recall) 1. Acute kidney injury, nonoliguric on underlying CKD4. Labs today are better than previous admissions but given previous history of cardiorenal syndrome, he may need to tolerate some azotemia to achieve euvolemia. Watch labs daily. Quantify proteinuria. Imaging of kidney functions worsens. All medications are dosed appropriately continue current diuretic regimen and adjust accordingly. 2. Acute decompensated heart failure and chronic kidney disease. Continue current medical management. Continue diuretic regimen. Also monitor electrolytes and renal function closely. 3. Anemia. Hemoglobin has decreased since previous admission. likely component of anemia of chronic kidney disease, likely benefit from Epogen termite treater helper. Iron saturation here was low. There may be a component of blood loss anemia. Check stool for occult blood. 4. Type 1 diabetes, insulin adjust as needed. cont Victoza. 5. Dyslipidemia. Continue statin. 6. History of coronary artery disease, cardiac optimization. 7. Hypertension, controlled at present, may benefit from LOLY inhibitor once kidney function is known to be stable. COLE BLAKE MD Sep 03, 2018 07:58
[2018-09-03] MEDS: FISH OIL 1,000 MG CAP PO SCH ×2 (08:29→21:05)
[2018-09-03] MEDS: ISOSORBIDE MONONITRATE(SR)30 MG TAB PO SCH (08:29)
[2018-09-03] MEDS: THIAMINE 100 MG TAB PO SCH (08:30)
[2018-09-03] MEDS: ASPIRIN (EC) 81 MG TAB PO SCH (08:30)
[2018-09-03] MEDS: APIXABAN 5 MG TABLET PO SCH ×2 (08:30→21:05)
[2018-09-03] MEDS ORDERED: GLUCOSE GEL 15 GRAM TUBE BUCCAL PRN (09:30)
[2018-09-03] MEDS ORDERED: GLUCAGON 1 MG INJ IM PRN (09:30)
[2018-09-03] MEDS ORDERED: DEXTROSE 50% 50 ML SYRINGE IV PRN ×2 (09:30)
[2018-09-03] MEDS ORDERED: GLUCOSE GEL 15 GRAM TUBE PO PRN ×2 (09:30)
--- NOTE | 2018-09-03 11:23 | CONS ---
Assessment/Plan Cardiology NYHA: IV Heart Failure Type: Acute on Chronic Heart Failure Type: Both Assessment/Plan Hospital Course (Demo Recall) 72yo with acute on chronic systolic and diastolic heart failure, with acute congestive heart failure which is clinically improved. Recurrent heart failure episodes I suspect are related to him consuming more salt than what he thinks he consumes. Impression: Ac/chr sys and diastolic heart failure, euvolemic CAD ischemic cardiomyopathy CKD stage 4 Recommendations: Continue home meds No LOLY/ARB for now due to CKD 4 Awaiting nutrition consultation, to better assess his dietary sodium intake and educate him Consultation Date/Type/Reason Admit Date/Time Sep 01, 2018 at 19:14 Initial Consult Date 09/02/18 Type of Consult Cardiology Requesting Provider: JAD SHIN NP Date/Time of Note DATE: 09/03/18 TIME: 11:19 24 HR Interval Summary Free Text/Dictation No events overnight, he is breathing comfortably on room air and has ambulated in the hallways. Exam/Review of Systems Vital Signs Vitals Vital Signs Date Temp Pulse Resp B/P (MAP) Pulse Ox O2 O2 Flow FiO2 Time Delivery Rate 09/03/18 97.8 76 22 158/87 96 Nasal 2.0 07:26 (110) Cannula 09/03/18 27 06:00 Intake and Output 09/02/18 09/02/18 09/03/18 1515:00 23:00 07:00 IntakeIntake Total 290 ml 240 ml 300 ml OutputOutput Total 1200 ml 300 ml 575 ml BalanceBalance -910 ml -60 ml -275 ml Exam Constitutional: alert, oriented, well developed Psych: no complaints, nl mood/affect Head: normocephalic, atraumatic Eyes: EOMI, nl lids ENMT: nl external ears & nose Neck: supple; No jvd, No bruits Respiratory: clear to auscultation, normal air movement Cardiovascular: regular rate and rhythm; No murmurs/extra sounds Gastrointestinal: soft, non-tender Musculoskeletal: nl extremities to inspection Extremities: No edema Neurological: nl mental status, nl speech Skin: nl turgor Labs Result Diagram: 09/03/18 0607 09/03/18 0607 Results 24hrs Laboratory Tests Test 09/02/18 11:20 09/02/18 12:20 09/03/18 06:07 Urine Color STRAW Urine Clarity CLEAR Urine pH 7.0 Urine Specific [place] 1.006 Urine Ketones NEGATIVE Urine Nitrite NEGATIVE Urine Bilirubin NEGATIVE Urine Urobilinogen NEGATIVE Urine Leukocyte Esterase NEGATIVE Urine Microscopic RBC 1 Urine Microscopic WBC 0 Urine Hemoglobin NEGATIVE Urine Glucose NEGATIVE Urine Total Protein 2+ H Hemoglobin 8.9 L 8.9 L Hematocrit 28.9 L 28.6 L White Blood Count 7.3 Red Blood Count 3.57 L Mean Corpuscular Volume 80.1 L Mean Corpuscular Hemoglobin 24.9 L Mean Corpuscular Hemoglobin Concent 31.1 L Red Cell Distribution Width 15.9 H Platelet Count 256 Mean Platelet Volume 10.1 Immature Granulocytes % 0.400 Neutrophils % 71.1 Lymphocytes % 9.1 L Monocytes % 13.5 H Eosinophils % 4.8 Basophils % 1.1 Nucleated Red Blood Cells % 0.0 Immature Granulocytes # 0.030 Neutrophils # 5.2 Lymphocytes # 0.7 L Monocytes # 1.0 H Eosinophils # 0.4 Basophils # 0.1 Nucleated Red Blood Cells # 0.0 Sodium Level 138 Potassium Level 3.7 Chloride Level 101 Carbon Dioxide Level 28 Anion Gap 9 Blood Urea Nitrogen 61 H Creatinine 2.65 H Est Glomerular Filtrat Rate mL/min Glucose Level 180 Calcium Level 9.1 Medications Medications Current Medications IV Flush (NS 3 ml) 3 ml PER PROTOCOL IV ; Start 09/01/18 at 19:30 Ondansetron HCl (Zofran Inj) 4 mg Q6H PRN IV NAUSEA/VOMITING; Start 09/01/18 at 19:30 Acetaminophen (Tylenol Tab) 650 mg Q6H PRN PO .PAIN 1-3 OR TEMP; Start 09/01/18 at 19:30 Acetaminophen/ Hydrocodone Bitart ([place] (5/325)) 1 tab Q6H PRN PO .MOD PAIN 4- 6; Start 09/01/18 at 19:30 Morphine Sulfate (morphine) 2 mg Q4H PRN IV .SEVERE PAIN 7-10; Start 09/01/18 at 19:30 Docusate Sodium (Colace) 100 mg Q12H PRN PO .CONSTIPATION; Start 09/01/18 at 19:30 Magnesium Hydroxide (Milk Of Mag) 30 ml DAILY PRN PO .CONSTIPATION; Start 09/01/18 at 19:30 Lorazepam (Ativan) 0.5 mg Q6H PRN IV ANXIETY; Start 09/01/18 at 19:30 Albuterol/ Ipratropium (Duoneb) 3 ml Q4H RESP THERAPY PRN HHN SHORTNESS OF BREATH; Start 09/01/18 at 19:30 Hydralazine HCl (Apresoline) 10 mg Q6H PRN IV ELEVATED BLOOD PRESSURE; Start 09/01/18 at 19:30 Nitroglycerin (Nitroglycerin (Sl Tab) 0.4 Mg) 1 tab Q5M PRN SL ANGINA; Start 09/01/18 at 19:30 Apixaban (Eliquis) 2.5 mg BID PO Last administered on 09/03/18 08:30; Admin Dose 2.5 MG; Start 09/01/18 at 21:00 Aspirin (Halfprin) 81 mg DAILY PO Last administered on 09/03/18 08:30; Admin Dose 81 MG; Start 09/02/18 at 09:00 Atorvastatin Calcium (Lipitor) 40 mg QHS PO Last administered on 09/02/18 20:38; Admin Dose 40 MG; Start 09/01/18 at 21:00 Bumetanide (Bumex) 1 mg BID DIURETICS PO Last administered on 09/03/18 05:39; Admin Dose 1 MG; Start 09/01/18 at 21:00 Carvedilol (Coreg) 6.25 mg BID PO Last administered on 09/03/18 08:29; Admin Dose 6.25 MG; Start 09/01/18 at 21:00 Hydralazine HCl (Apresoline) 100 mg BID PO Last administered on 09/03/18 08:29; Admin Dose 100 MG; Start 09/01/18 at 21:00 Isosorbide Mononitrate (Imdur) 30 mg DAILY PO Last administered on 09/03/18 08:29; Admin Dose 30 MG; Start 09/02/18 at 09:00 Thiamine HCl (Vitamin B1) 100 mg DAILY PO Last administered on 09/03/18 08:30; Admin Dose 100 MG; Start 09/02/18 at 09:00 Fish Oil (Fish Oil) 2,000 mg BID PO Last administered on 09/03/18 08:29; Admin Dose 2,000 MG; Start 09/01/18 at 22:00 Diagnostic Test (Pha) (Accu-Chek) 1 ea 02 XX ; Start 09/04/18 at 02:00 Insulin Glargine (Lantus) 15 units DAILY@0800 SC ; Start 09/04/18 at 08:00 Insulin Aspart (Novolog Insulin Pen) 5 unit WITH MEALS SC ; Start 09/03/18 at 11:50 Insulin Aspart (Novolog Insulin Pen) NOVOLOG *MILD* ALGORITHM WITH MEALS BEDTIME SC ; Start 09/03/18 at 11:50 Miscellaneous Information 1 ea NOTE XX ; Start 09/03/18 at 09:30 Glucose (Glutose) 15 gm Q15M PRN PO DECREASED GLUCOSE; Start 09/03/18 at 09:30 Glucose (Glutose) 22.5 gm Q15M PRN PO DECREASED GLUCOSE; Start 09/03/18 at 09:30 Dextrose (D50w Syringe) 25 ml Q15M PRN IV DECREASED GLUCOSE; Start 09/03/18 at 09:30 Dextrose (D50w Syringe) 50 ml Q15M PRN IV DECREASED GLUCOSE; Start 09/03/18 at 09:30 Glucagon (Glucagen) 1 mg Q15M PRN IM DECREASED GLUCOSE; Start 09/03/18 at 09:30 Glucose (Glutose) 15 gm Q15M PRN BUCCAL DECREASED GLUCOSE; Start 09/03/18 at 09:30 DELROY DE LEON Sep 03, 2018 11:23
[2018-09-03 11:42] VITALS: BP 133/71; PULSE 72; RESP 22
[2018-09-03] MEDS: INSULIN ASPART [NOVOLOG] 3 ML PEN SC SCH ×5 (12:24→22:08)
[2018-09-03 15:41] VITALS: BP 152/78; PULSE 75; RESP 22
--- NOTE | 2018-09-03 18:03 | PN ---
Date/Time of Note Date/Time of Note DATE: 09/03/18 TIME: 18:01 Assessment/Plan VTE Prophylaxis Risk score (from Ns)>0 risk: 2 SCD applied (from Ns): Yes Pharmacological prophylaxis: apixaban Lines/Catheters IV Catheter Type (from [facility]): [place] Assessment/Plan Hospital Course 1. Acute on chronic CHF exacerbation, systolic -Recent 2D echo with a EF of 20-25% -Monitor in telemetry unit -Diuresis -Cardiology consult following - o2 prn -PT eval awaiting nutrition consult recommendations 2. Type 1 diabetes: Insulin. Adjust as needed 3. Dyslipidemia: Statin 4. History of CAD -cardiac optimization 5. CKD: Stable 6. Hypertension: antihypertensives. ACEI per machines technician 7. Anemia Monitor trend transfuse blood products prn GI consult pending clinical course DISPO/PLAN: continue cardiology recommendations. continue PT. await improvement of respiratory status. Discussed POC with Dr. Reese Result Diagram: 09/03/18 0607 09/03/18 0607 Results 24hrs Laboratory Tests Test 09/03/18 06:07 09/03/18 12:07 09/03/18 16:00 09/03/18 17:01 White Blood Count 7.3 Red Blood Count 3.57 L Hemoglobin 8.9 L Hematocrit 28.6 L Mean Corpuscular 80.1 L Volume Mean Corpuscular 24.9 L Hemoglobin Mean Corpuscular 31.1 L Hemoglobin Concent Red Cell 15.9 H Distribution Width Platelet Count 256 Mean Platelet Volume 10.1 Immature 0.400 Granulocytes % Neutrophils % 71.1 Lymphocytes % 9.1 L Monocytes % 13.5 H Eosinophils % 4.8 Basophils % 1.1 Nucleated Red Blood 0.0 Cells % Immature 0.030 Granulocytes # Neutrophils # 5.2 Lymphocytes # 0.7 L Monocytes # 1.0 H Eosinophils # 0.4 Basophils # 0.1 Nucleated Red Blood 0.0 Cells # Sodium Level 138 Potassium Level 3.7 Chloride Level 101 Carbon Dioxide Level 28 Anion Gap 9 Blood Urea Nitrogen 61 H Creatinine 2.65 H Est Glomerular Filtrat Rate mL/min Glucose Level 180 Calcium Level 9.1 Bedside Glucose 321 H 162 Stool Occult Blood NEGATIVE Subjective 24 Hr Interval Summary Free Text/Dictation reports slightly better breathing today . Exam/Review of Systems Exam Vitals Vital Signs Date Temp Pulse Resp B/P (MAP) Pulse Ox O2 O2 Flow FiO2 Time Delivery Rate 09/03/18 98.0 75 22 152/78 96 Room Air 15:41 (102) Nasal Cannula 09/03/18 2.0 13:08 09/03/18 27 06:00 Intake and Output 09/02/18 09/02/18 09/03/18 1515:00 23:00 07:00 IntakeIntake Total 290 ml 240 ml 300 ml OutputOutput Total 1200 ml 300 ml 575 ml BalanceBalance -910 ml -60 ml -275 ml Exam Constitutional: alert, oriented Psych: nl mood/affect Neck: supple Respiratory: diminished breath sounds Cardiovascular: other (regular rate ) Musculoskeletal: swelling (minimal ble ) Neurological: CLINICAL REHAB SPECIALIST II-XII intact, nl mental status, nl speech Results Results 24hrs Laboratory Tests Test 09/03/18 06:07 09/03/18 12:07 09/03/18 16:00 09/03/18 17:01 White Blood Count 7.3 Red Blood Count 3.57 L Hemoglobin 8.9 L Hematocrit 28.6 L Mean Corpuscular 80.1 L Volume Mean Corpuscular 24.9 L Hemoglobin Mean Corpuscular 31.1 L Hemoglobin Concent Red Cell 15.9 H Distribution Width Platelet Count 256 Mean Platelet Volume 10.1 Immature 0.400 Granulocytes % Neutrophils % 71.1 Lymphocytes % 9.1 L Monocytes % 13.5 H Eosinophils % 4.8 Basophils % 1.1 Nucleated Red Blood 0.0 Cells % Immature 0.030 Granulocytes # Neutrophils # 5.2 Lymphocytes # 0.7 L Monocytes # 1.0 H Eosinophils # 0.4 Basophils # 0.1 Nucleated Red Blood 0.0 Cells # Sodium Level 138 Potassium Level 3.7 Chloride Level 101 Carbon Dioxide Level 28 Anion Gap 9 Blood Urea Nitrogen 61 H Creatinine 2.65 H Est Glomerular Filtrat Rate mL/min Glucose Level 180 Calcium Level 9.1 Bedside Glucose 321 H 162 Stool Occult Blood NEGATIVE Medications Medication Current Medications IV Flush (NS 3 ml) 3 ml PER PROTOCOL IV ; Start 09/01/18 at 19:30 Ondansetron HCl (Zofran Inj) 4 mg Q6H PRN IV NAUSEA/VOMITING; Start 09/01/18 at 19:30 Acetaminophen (Tylenol Tab) 650 mg Q6H PRN PO .PAIN 1-3 OR TEMP; Start 09/01/18 at 19:30 Acetaminophen/ Hydrocodone Bitart ([place] (5/325)) 1 tab Q6H PRN PO .MOD PAIN 4- 6; Start 09/01/18 at 19:30 Morphine Sulfate (morphine) 2 mg Q4H PRN IV .SEVERE PAIN 7-10; Start 09/01/18 at 19:30 Docusate Sodium (Colace) 100 mg Q12H PRN PO .CONSTIPATION; Start 09/01/18 at 19:30 Magnesium Hydroxide (Milk Of Mag) 30 ml DAILY PRN PO .CONSTIPATION; Start 09/01/18 at 19:30 Lorazepam (Ativan) 0.5 mg Q6H PRN IV ANXIETY; Start 09/01/18 at 19:30 Albuterol/ Ipratropium (Duoneb) 3 ml Q4H RESP THERAPY PRN HHN SHORTNESS OF BREATH; Start 09/01/18 at 19:30 Hydralazine HCl (Apresoline) 10 mg Q6H PRN IV ELEVATED BLOOD PRESSURE; Start 09/01/18 at 19:30 Nitroglycerin (Nitroglycerin (Sl Tab) 0.4 Mg) 1 tab Q5M PRN SL ANGINA; Start 09/01/18 at 19:30 Apixaban (Eliquis) 2.5 mg BID PO Last administered on 09/03/18 08:30; Admin Dose 2.5 MG; Start 09/01/18 at 21:00 Aspirin (Halfprin) 81 mg DAILY PO Last administered on 09/03/18 08:30; Admin Dose 81 MG; Start 09/02/18 at 09:00 Atorvastatin Calcium (Lipitor) 40 mg QHS PO Last administered on 09/02/18at 20:38; Admin Dose 40 MG; Start 09/01/18 at 21:00 Bumetanide (Bumex) 1 mg BID DIURETICS PO Last administered on 09/03/18 17:37; Admin Dose 1 MG; Start 09/01/18 at 21:00 Hydralazine HCl (Apresoline) 100 mg BID PO Last administered on 09/03/18 08:29; Admin Dose 100 MG; Start 09/01/18 at 21:00 Isosorbide Mononitrate (Imdur) 30 mg DAILY PO Last administered on 09/03/18 08:29; Admin Dose 30 MG; Start 09/02/18 at 09:00 Thiamine HCl (Vitamin B1) 100 mg DAILY PO Last administered on 09/03/18at 08:30; Admin Dose 100 MG; Start 09/02/18 at 09:00 Fish Oil (Fish Oil) 2,000 mg BID PO Last administered on 09/03/18at 08:29; Admin Dose 2,000 MG; Start 09/01/18 at 22:00 Diagnostic Test (Pha) (Accu-Chek) 1 ea 02 XX ; Start 09/04/18 at 02:00 Insulin Glargine (Lantus) 15 units DAILY@0800 SC ; Start 09/04/18 at 08:00 Insulin Aspart (Novolog Insulin Pen) 5 unit WITH MEALS SC Last administered on 09/03/18at 17:35; Admin Dose 5 UNIT; Start 09/03/18 at 11:50 Insulin Aspart (Novolog Insulin Pen) NOVOLOG *MILD* ALGORITHM WITH MEALS BEDTIME SC Last administered on 09/03/18at 12:24; Admin Dose 5 UNIT; Start 09/03/18 at 11:50 Miscellaneous Information 1 ea NOTE XX ; Start 09/03/18 at 09:30 Glucose (Glutose) 15 gm Q15M PRN PO DECREASED GLUCOSE; Start 09/03/18 at 09:30 Glucose (Glutose) 22.5 gm Q15M PRN PO DECREASED GLUCOSE; Start 09/03/18 at 09:30 Dextrose (D50w Syringe) 25 ml Q15M PRN IV DECREASED GLUCOSE; Start 09/03/18 at 09:30 Dextrose (D50w Syringe) 50 ml Q15M PRN IV DECREASED GLUCOSE; Start 09/03/18 at 09:30 Glucagon (Glucagen) 1 mg Q15M PRN IM DECREASED GLUCOSE; Start 09/03/18 at 09:30 Glucose (Glutose) 15 gm Q15M PRN BUCCAL DECREASED GLUCOSE; Start 09/03/18 at 09:30 Carvedilol (Coreg) 12.5 mg BID PO ; Start 09/03/18 at 21:00 JAD SHIN NP Sep 03, 2018 18:03
[2018-09-03 19:58] VITALS: BP 159/85; PULSE 75; RESP 22
[2018-09-03] MEDS: ATORVASTATIN 40 MG TAB PO SCH (21:05)
[2018-09-04] VITALS (7 sets, daily range): BP systolic 123–162; BP diastolic 65–85; PULSE 60–74; RESP 19–22
[2018-09-04] MEDS: ACCU-CHEK XX SCH (02:57)
[2018-09-04] MEDS: BUMETANIDE 1 MG TAB PO SCH ×2 (05:48→17:25)
[2018-09-04] MEDS: APIXABAN 5 MG TABLET PO SCH ×2 (08:24→20:30)
[2018-09-04] MEDS: FISH OIL 1,000 MG CAP PO SCH ×2 (08:24→20:29)
[2018-09-04] MEDS: THIAMINE 100 MG TAB PO SCH (08:24)
[2018-09-04] MEDS: ASPIRIN (EC) 81 MG TAB PO SCH (08:25)
[2018-09-04] MEDS: ISOSORBIDE MONONITRATE(SR)30 MG TAB PO SCH (08:25)
[2018-09-04] MEDS: INSULIN ASPART [NOVOLOG] 3 ML PEN SC SCH ×7 (08:36→20:43)
[2018-09-04] MEDS: INSULIN GLARGINE [LANTus] (100 UNITS/ML) SYG SC SCH (08:36)
--- NOTE | 2018-09-04 09:12 | CONS ---
Consult Date/Type/Reason Admit Date/Time Sep 01, 2018 at 19:14 Initial Consult Date 09/02/18 Requesting Provider: JAD SHIN NP Date/Time of Note DATE: 09/04/18 TIME: 09:10 Subjective 72-year-old gentleman with past medical history of cardiomyopathy, EF 20%, type 1 diabetes, hypertension and dyslipidemia, nonsustained ventricular tachycardia, coronary artery disease, CKD. He presents to the hospital after noticing dyspnea and chest pain. The patient was in this hospital a month ago, seen by Dr. Ruiz. The patient had a similar presentation with a congestive heart f ailure exacerbation. The patient was noted to have a CHF exacerbation again and an x-ray with pleural effusion with hypertension on presentation. The patient was admitted with [id number] congestive heart failure exacerbation, type 1 diabetes, on insulin. Creatinine was noted to be 2.5. The patient has had previous history of CKD. The lowest creatinine on record was at 2.1. Discharged with a creatinine of 2.7. There has been no recent fevers, chills, nausea, vomiting, chest pain, shortness of breath with evidence of effusion. No fevers, chills, nausea, vomiting. The patient denies history of frequent urinary tract infections or kidney stones. Denies nocturia. The patient was described as having CKD presumably from diabetes. had episode of sob but overall improved. PHYSICAL EXAMINATION: HEENT: Normocephalic, atraumatic. Pupils equal and reactive to light. Oropharynx has moist mucous membranes. NECK: Supple. HEART: Regular rate and rhythm. LUNGS: Diminished breath sounds bilaterally. ABDOMEN: Soft, nontender, nondistended. Bowel sounds to auscultation. EXTREMITIES: No clubbing, cyanosis or edema. Objective Vitals Vital Signs Date Temp Pulse Resp B/P (MAP) Pulse Ox O2 O2 Flow FiO2 Time Delivery Rate 09/04/18 97.9 64 20 145/81 100 Nasal 06:54 (102) Cannula 09/04/18 2.0 27 02:15 Intake and Output 09/03/18 09/03/18 09/04/18 1515:00 23:00 07:00 IntakeIntake Total 530 ml 600 ml OutputOutput Total 200 ml 250 ml BalanceBalance 330 ml 350 ml Results/Medications Result Diagram: 09/04/18 0600 09/04/18 0600 Results 24 hrs Laboratory Tests Test 09/03/18 12:07 09/03/18 16:00 09/03/18 17:01 09/03/18 21:59 Bedside Glucose 321 H 162 242 H Stool Occult Blood NEGATIVE Test 09/04/18 02:48 09/04/18 06:00 09/04/18 08:22 Bedside Glucose 176 185 White Blood Count 7.5 Red Blood Count 3.52 L Hemoglobin 8.8 L Hematocrit 28.1 L Mean Corpuscular 79.8 L Volume Mean Corpuscular 25.0 L Hemoglobin Mean Corpuscular 31.3 L Hemoglobin Concent Red Cell 15.9 H Distribution Width Platelet Count 255 Mean Platelet Volume 10.1 Immature 0.100 Granulocytes % Neutrophils % 68.0 Lymphocytes % 12.9 L Monocytes % 13.8 H Eosinophils % 4.4 Basophils % 0.8 Nucleated Red Blood 0.0 Cells % Immature 0.010 Granulocytes # Neutrophils # 5.1 Lymphocytes # 1.0 Monocytes # 1.0 H Eosinophils # 0.3 Basophils # 0.1 Nucleated Red Blood 0.0 Cells # Sodium Level 138 Potassium Level 3.7 Chloride Level 102 Carbon Dioxide Level 26 Anion Gap 10 Blood Urea Nitrogen 71 H Creatinine 2.85 H Est Glomerular Filtrat Rate mL/min Glucose Level 178 Calcium Level 9.2 Home Meds Active Scripts Thiamine* (Thiamine*) 100 Mg Tablet, 100 MG PO DAILY for 30 Days, #30 TAB Prov:CHUY HORTON MD 04/01/18 Reported Medications Bumetanide* (Bumetanide*) 1 Mg Tablet, 1 MG PO BID, TAB 09/01/18 Liraglutide (Victoza 3-Donnie) 0.6 Mg/0.1 Ml Pen.injctr, 1.8 MG SQ BID, SYR 07/30/18 [place]-3 Acid Ethyl Esters (Lovaza) 1 Gm Capsule, 2 GM PO BID, CAP 07/30/18 Apixaban* (Eliquis*) 2.5 Mg Tablet, 2.5 MG PO BID, TAB 06/07/18 Carvedilol* (Carvedilol*) 6.25 Mg Tablet, 6.25 MG PO BID, #60 TAB 06/07/18 Hydralazine Hcl* (Hydralazine Hcl*) 100 Mg Tablet, 100 MG PO BID, #90 TAB 06/07/18 Isosorbide Mononitrate* (Isosorbide Mononitrate*) 30 Mg Tab.er.24h, 30 MG PO DAILY, TAB 03/20/18 Aspirin* (Aspirin* EC) 81 Mg Tablet.dr, 81 MG PO DAILY, TAB 03/04/18 Insulin Glargine,Hum.rec.anlog ([place] Solostar) 300 Unit/1 Ml Insuln.pen, 42 UNIT SQ QPM, EA 03/04/18 Atorvastatin* (Atorvastatin*) 40 Mg Tablet, 40 MG PO QHS, #30 TAB 03/04/18 Discontinued Scripts Bumetanide* (Bumetanide*) 1 Mg Tablet, 1 MG PO BID DIURETICS, #60 TAB 3 Refills Prov:SOFI RENTERIA S. 08/03/18 Medications Current Medications IV Flush (NS 3 ml) 3 ml PER PROTOCOL IV ; Start 09/01/18 at 19:30 Ondansetron HCl (Zofran Inj) 4 mg Q6H PRN IV NAUSEA/VOMITING; Start 09/01/18 at 19:30 Acetaminophen (Tylenol Tab) 650 mg Q6H PRN PO .PAIN 1-3 OR TEMP; Start 09/01/18 at 19:30 Acetaminophen/ Hydrocodone Bitart ([place] (5/325)) 1 tab Q6H PRN PO .MOD PAIN 4- 6; Start 09/01/18 at 19:30 Morphine Sulfate (morphine) 2 mg Q4H PRN IV .SEVERE PAIN 7-10; Start 09/01/18 at 19:30 Docusate Sodium (Colace) 100 mg Q12H PRN PO .CONSTIPATION; Start 09/01/18 at 19:30 Magnesium Hydroxide (Milk Of Mag) 30 ml DAILY PRN PO .CONSTIPATION; Start 09/01/18 at 19:30 Lorazepam (Ativan) 0.5 mg Q6H PRN IV ANXIETY; Start 09/01/18 at 19:30 Albuterol/ Ipratropium (Duoneb) 3 ml Q4H RESP THERAPY PRN HHN SHORTNESS OF BREATH; Start 09/01/18 at 19:30 Hydralazine HCl (Apresoline) 10 mg Q6H PRN IV ELEVATED BLOOD PRESSURE; Start 09/01/18 at 19:30 Nitroglycerin (Nitroglycerin (Sl Tab) 0.4 Mg) 1 tab Q5M PRN SL ANGINA; Start 09/01/18 at 19:30 Apixaban (Eliquis) 2.5 mg BID PO Last administered on 09/04/18 08:24; Admin Dose 2.5 MG; Start 09/01/18 at 21:00 Aspirin (Halfprin) 81 mg DAILY PO Last administered on 09/04/18 08:25; Admin Dose 81 MG; Start 09/02/18 at 09:00 Atorvastatin Calcium (Lipitor) 40 mg QHS PO Last administered on 09/03/18 21:05; Admin Dose 40 MG; Start 09/01/18 at 21:00 Bumetanide (Bumex) 1 mg BID DIURETICS PO Last administered on 09/04/18 05:48; Admin Dose 1 MG; Start 09/01/18 at 21:00 Hydralazine HCl (Apresoline) 100 mg BID PO Last administered on 09/04/18 08:25; Admin Dose 100 MG; Start 09/01/18 at 21:00 Isosorbide Mononitrate (Imdur) 30 mg DAILY PO Last administered on 09/04/18 08:25; Admin Dose 30 MG; Start 09/02/18 at 09:00 Thiamine HCl (Vitamin B1) 100 mg DAILY PO Last administered on 09/04/18 08:24; Admin Dose 100 MG; Start 09/02/18 at 09:00 Fish Oil (Fish Oil) 2,000 mg BID PO Last administered on 09/04/18 08:24; Admin Dose 2,000 MG; Start 09/01/18 at 22:00 Diagnostic Test (Pha) (Accu-Chek) 1 ea 02 XX Last administered on 09/04/18 02:57; Admin Dose 1 EA; Start 09/04/18 at 02:00 Insulin Glargine (Lantus) 15 units DAILY@0800 SC Last administered on 09/04/18 08:36; Admin Dose 15 UNITS; Start 09/04/18 at 08:00 Insulin Aspart (Novolog Insulin Pen) 5 unit WITH MEALS SC Last administered on 09/04/18 08:36; Admin Dose 5 UNIT; Start 09/03/18 at 11:50 Insulin Aspart (Novolog Insulin Pen) NOVOLOG *MILD* ALGORITHM WITH MEALS BEDTIME SC Last administered on 09/04/18at 08:36; Admin Dose 2 UNIT; Start 09/03/18 at 11:50 Miscellaneous Information 1 ea NOTE XX ; Start 09/03/18 at 09:30 Glucose (Glutose) 15 gm Q15M PRN PO DECREASED GLUCOSE; Start 09/03/18 at 09:30 Glucose (Glutose) 22.5 gm Q15M PRN PO DECREASED GLUCOSE; Start 09/03/18 at 09:30 Dextrose (D50w Syringe) 25 ml Q15M PRN IV DECREASED GLUCOSE; Start 09/03/18 at 09:30 Dextrose (D50w Syringe) 50 ml Q15M PRN IV DECREASED GLUCOSE; Start 09/03/18 at 09:30 Glucagon (Glucagen) 1 mg Q15M PRN IM DECREASED GLUCOSE; Start 09/03/18 at 09:30 Glucose (Glutose) 15 gm Q15M PRN BUCCAL DECREASED GLUCOSE; Start 09/03/18 at 09:30 Carvedilol (Coreg) 12.5 mg BID PO Last administered on 09/04/18at 08:25; Admin Dose 12.5 MG; Start 09/03/18 at 21:00 Assessment/Plan Hospital Course (Demo Recall) 1. Acute kidney injury, nonoliguric on underlying CKD4. Labs today are in line with previous admissions but given previous history of cardiorenal syndrome, he may need to tolerate some azotemia to achieve euvolemia. Watch labs daily. Quantify proteinuria. Imaging of kidney functions worsens. All medications are dosed appropriately continue current diuretic regimen and adjust accordingly. 2. Acute decompensated heart failure and chronic kidney disease. Continue current medical management. Continue diuretic regimen. Also monitor electrolytes and renal function closely. 3. Anemia. Hemoglobin has decreased since previous admission. likely component of anemia of chronic kidney disease, likely benefit from Epogen intermediate designer. Iron saturation here was low. There may be a component of blood loss anemia. Check stool for occult blood. 4. Type 1 diabetes, insulin adjust as needed. cont Victoza. 5. Dyslipidemia. Continue statin. 6. History of coronary artery disease, cardiac optimization. 7. Hypertension, controlled at present, may benefit from LOLY inhibitor once kidney function is known to be stable. COLE BLAKE MD Sep 04, 2018 09:12
--- NOTE | 2018-09-04 14:22 | PN ---
Date/Time of Note Date/Time of Note DATE: 09/04/18 TIME: 14:20 Assessment/Plan VTE Prophylaxis Risk score (from Ns)>0 risk: 2 SCD applied (from Nsg): Yes Pharmacological prophylaxis: apixaban Lines/Catheters IV [facility]ter [facility]from [facility] [place] Assessment/Plan Hospital Course SUBJECTIVE: Denies any chest pain. OBJECTIVE: Physical Exam General: Obese 72 year-old male lying in bed in mild respiratory distress. HEENT: Normocephalic, atraumatic. Eyes: Anicteric sclerae, conjunctivae clear. ENT: Nasal septum midline, oral mucosa moist. Neck supple. JVD noticed. Respiratory: Bilaterally diminished breath sounds. Bilateral rales at the bases. Cardiovascular: S1, S2 heard. Regular rate and rhythm. Abdomen: Soft, nontender, and nondistended. Bowel sounds positive in all 4 heriberto drants. Genitourinary: Deferred. Extremities: No cyanosis, no clubbing. Trace B/L pedal edema. Peripheral pulses palpable. Neurologic: Cranial nerves II through XII grossly intact. The patient is awake, alert, and oriented. Skin: Normal skin turgor. No skin rashes Labs & Vitals per chart ASSESSMENT & PLAN This is a 72-year-old male with past medical history of essential hypertension, CAD status post coronary artery stenting, type 2 diabetes mellitus, cardiomyopathy (fitted with LifeVest on 04/03/2018), sustained VT (on 03/22/2018), benign prostatic hypertrophy, gout, and chronic kidney disease who came to the emergency room with chief complaint of chest pain and dyspnea. 1. Chest pain. ACS ruled out. Being followed by cardiology. 2. Congestive heart failure exacerbation. Acute on chronic systolic dysfunction. Continue diuresis while carefully monitoring renal function. 3. History of sustained VT on 03/22/2018. Status post LifeVest placement in March 2018. Currently has no LifeVest in place. 4. Cardiomyopathy. Ejection fraction of 30%. Continue beta-blockers and nitrates. No ACEI/ARB because of CKD stage IV. 5. Hypertension. Continue antihypertensives. 6. Type 2 diabetes mellitus. The patient will be continued on sliding scale insulin along with pre-meal insulin and basal insulin. Latest hemoglobin A1c 9.7. 7. CAD. Status post coronary artery stenting. The patient will be continued on antiplatelet therapy. 8. Chronic kidney disease. Nephrotoxic drugs will be used with caution. The patient's BUN and creatinine will be monitored closely. Nephrology follow up. 9. Dyslipidemia. Continue statins and fish oil. 10. Fluids, electrolytes, and nutrition. Carbohydrate controlled diet. 11. DVT prophylaxis. Factor Xa inhibitors. 12. Plan. Continue diuresis while carefully monitoring renal function. Await clinical improvement before discharging the patient. The patient was seen in collaboration with Dr. Allen. Result Diagram: 09/04/18 0600 09/04/18 0600 Results 24hrs Laboratory Tests Test 09/03/18 16:00 09/03/18 17:01 09/03/18 20:52 09/03/18 21:59 Stool Occult Blood NEGATIVE Bedside Glucose 162 244 H 242 H Test 09/04/18 02:48 09/04/18 06:00 09/04/18 08:22 09/04/18 11:58 Bedside Glucose 176 185 285 H White Blood Count 7.5 Red Blood Count 3.52 L Hemoglobin 8.8 L Hematocrit 28.1 L Mean Corpuscular 79.8 L Volume Mean Corpuscular 25.0 L Hemoglobin Mean Corpuscular 31.3 L Hemoglobin Concent Red Cell 15.9 H Distribution Width Platelet Count 255 Mean Platelet Volume 10.1 Immature 0.100 Granulocytes % Neutrophils % 68.0 Lymphocytes % 12.9 L Monocytes % 13.8 H Eosinophils % 4.4 Basophils % 0.8 Nucleated Red Blood 0.0 Cells % Immature 0.010 Granulocytes # Neutrophils # 5.1 Lymphocytes # 1.0 Monocytes # 1.0 H Eosinophils # 0.3 Basophils # 0.1 Nucleated Red Blood 0.0 Cells # Sodium Level 138 Potassium Level 3.7 Chloride Level 102 Carbon Dioxide Level 26 Anion Gap 10 Blood Urea Nitrogen 71 H Creatinine 2.85 H Est Glomerular Filtrat Rate mL/min Glucose Level 178 Calcium Level 9.2 Exam/Review of Systems Exam Vitals Vital Signs Date Temp Pulse Resp B/P (MAP) Pulse Ox O2 O2 Flow FiO2 Time Delivery Rate 09/04/18 97.5 65 20 124/65 94 Room Air 10:57 (84) 09/04/18 2.0 27 02:15 Intake and Output 09/03/18 09/03/18 09/04/18 1515:00 23:00 07:00 IntakeIntake Total 530 ml 600 ml OutputOutput Total 200 ml 250 ml BalanceBalance 330 ml 350 ml Results Results 24hrs Laboratory Tests Test 09/03/18 16:00 09/03/18 17:01 09/03/18 20:52 09/03/18 21:59 Stool Occult Blood NEGATIVE Bedside Glucose 162 244 H 242 H Test 09/04/18 02:48 09/04/18 06:00 09/04/18 08:22 09/04/18 11:58 Bedside Glucose 176 185 285 H White Blood Count 7.5 Red Blood Count 3.52 L Hemoglobin 8.8 L Hematocrit 28.1 L Mean Corpuscular 79.8 L Volume Mean Corpuscular 25.0 L Hemoglobin Mean Corpuscular 31.3 L Hemoglobin Concent Red Cell 15.9 H Distribution Width Platelet Count 255 Mean Platelet Volume 10.1 Immature 0.100 Granulocytes % Neutrophils % 68.0 Lymphocytes % 12.9 L Monocytes % 13.8 H Eosinophils % 4.4 Basophils % 0.8 Nucleated Red Blood 0.0 Cells % Immature 0.010 Granulocytes # Neutrophils # 5.1 Lymphocytes # 1.0 Monocytes # 1.0 H Eosinophils # 0.3 Basophils # 0.1 Nucleated Red Blood 0.0 Cells # Sodium Level 138 Potassium Level 3.7 Chloride Level 102 Carbon Dioxide Level 26 Anion Gap 10 Blood Urea Nitrogen 71 H Creatinine 2.85 H Est Glomerular Filtrat Rate mL/min Glucose Level 178 Calcium Level 9.2 Medications Medication Current Medications IV Flush (NS 3 ml) 3 ml PER PROTOCOL IV ; Start 09/01/18 at 19:30 Ondansetron HCl (Zofran Inj) 4 mg Q6H PRN IV NAUSEA/VOMITING; Start 09/01/18 at 19:30 Acetaminophen (Tylenol Tab) 650 mg Q6H PRN PO .PAIN 1-3 OR TEMP; Start 09/01/18 at 19:30 Acetaminophen/ Hydrocodone Bitart ([place] (5/325)) 1 tab Q6H PRN PO .MOD PAIN 4- 6; Start 09/01/18 at 19:30 Morphine Sulfate (morphine) 2 mg Q4H PRN IV .SEVERE PAIN 7-10; Start 09/01/18 at 19:30 Docusate Sodium (Colace) 100 mg Q12H PRN PO .CONSTIPATION; Start 09/01/18 at 19:30 Magnesium Hydroxide (Milk Of Mag) 30 ml DAILY PRN PO .CONSTIPATION; Start 09/01/18 at 19:30 Lorazepam (Ativan) 0.5 mg Q6H PRN IV ANXIETY; Start 09/01/18 at 19:30 Albuterol/ Ipratropium (Duoneb) 3 ml Q4H RESP THERAPY PRN HHN SHORTNESS OF BREATH; Start 09/01/18 at 19:30 Hydralazine HCl (Apresoline) 10 mg Q6H PRN IV ELEVATED BLOOD PRESSURE; Start 09/01/18 at 19:30 Nitroglycerin (Nitroglycerin (Sl Tab) 0.4 Mg) 1 tab Q5M PRN SL ANGINA; Start 09/01/18 at 19:30 Apixaban (Eliquis) 2.5 mg BID PO Last administered on 09/04/18 08:24; Admin Dose 2.5 MG; Start 09/01/18 at 21:00 Aspirin (Halfprin) 81 mg DAILY PO Last administered on 09/04/18 08:25; Admin Dose 81 MG; Start 09/02/18 at 09:00 Atorvastatin Calcium (Lipitor) 40 mg QHS PO Last administered on 09/03/18 21:05; Admin Dose 40 MG; Start 09/01/18 at 21:00 Bumetanide (Bumex) 1 mg BID DIURETICS PO Last administered on 09/04/18 05:48; Admin Dose 1 MG; Start 09/01/18 at 21:00 Hydralazine HCl (Apresoline) 100 mg BID PO Last administered on 09/04/18 08:25; Admin Dose 100 MG; Start 09/01/18 at 21:00 Isosorbide Mononitrate (Imdur) 30 mg DAILY PO Last administered on 09/04/18 08:25; Admin Dose 30 MG; Start 09/02/18 at 09:00 Thiamine HCl (Vitamin B1) 100 mg DAILY PO Last administered on 09/04/18 08:24; Admin Dose 100 MG; Start 09/02/18 at 09:00 Fish Oil (Fish Oil) 2,000 mg BID PO Last administered on 09/04/18 08:24; Admin Dose 2,000 MG; Start 09/01/18 at 22:00 Diagnostic Test (Pha) (Accu-Chek) 1 ea 02 XX Last administered on 09/04/18at 02:57; Admin Dose 1 EA; Start 09/04/18 at 02:00 Insulin Glargine (Lantus) 15 units DAILY@0800 SC Last administered on 09/04/18at 08:36; Admin Dose 15 UNITS; Start 09/04/18 at 08:00 Insulin Aspart (Novolog Insulin Pen) 5 unit WITH MEALS SC Last administered on 09/04/18at 12:05; Admin Dose 5 UNIT; Start 09/03/18 at 11:50 Insulin Aspart (Novolog Insulin Pen) NOVOLOG *MILD* ALGORITHM WITH MEALS BEDTIME SC Last administered on 09/04/18at 12:05; Admin Dose 4 UNIT; Start 09/03/18 at 11:50 Miscellaneous Information 1 ea NOTE XX ; Start 09/03/18 at 09:30 Glucose (Glutose) 15 gm Q15M PRN PO DECREASED GLUCOSE; Start 09/03/18 at 09:30 Glucose (Glutose) 22.5 gm Q15M PRN PO DECREASED GLUCOSE; Start 09/03/18 at 09:30 Dextrose (D50w Syringe) 25 ml Q15M PRN IV DECREASED GLUCOSE; Start 09/03/18 at 09:30 Dextrose (D50w Syringe) 50 ml Q15M PRN IV DECREASED GLUCOSE; Start 09/03/18 at 09:30 Glucagon (Glucagen) 1 mg Q15M PRN IM DECREASED GLUCOSE; Start 09/03/18 at 09:30 Glucose (Glutose) 15 gm Q15M PRN BUCCAL DECREASED GLUCOSE; Start 09/03/18 at 09:30 Carvedilol (Coreg) 12.5 mg BID PO Last administered on 09/04/18at 08:25; Admin Dose 12.5 MG; Start 09/03/18 at 21:00 DALLIN ADAMS NP Sep 04, 2018 14:21
--- NOTE | 2018-09-04 17:03 | CONS ---
Assessment/Plan Cardiology NYHA: IV Heart Failure Type: Acute on Chronic Heart Failure Type: Both Assessment/Plan Hospital Course (Demo Recall) Acute decompensated systolic congestive heart failure Cardia myopathy with ejection fraction 25% Mild to moderate coronary artery disease left heart catheterization January 2016 History of ventricular tachycardia, with history of LifeVest CKD Hypertension HR stable Cont Coreg Diuretics as tolerated in setting of CKD-being followed by renal Consultation Date/Type/Reason Admit Date/Time Sep 01, 2018 at 19:14 Initial Consult Date 09/02/18 Type of Consult Cardiology Requesting Provider: JAD SHIN NP Date/Time of Note DATE: 09/04/18 TIME: 17:01 24 HR Interval Summary Free Text/Dictation sob better, no cp,palp Exam/Review of Systems Vital Signs Vitals Vital Signs Date Temp Pulse Resp B/P (MAP) Pulse Ox O2 O2 Flow FiO2 Time Delivery Rate 09/04/18 98.1 60 20 133/68 96 Room Air 14:56 (89) 09/04/18 2.0 27 02:15 Intake and Output 09/03/18 09/03/18 09/04/18 1515:00 23:00 07:00 IntakeIntake Total 530 ml 600 ml OutputOutput Total 200 ml 250 ml BalanceBalance 330 ml 350 ml Exam Constitutional: alert, oriented Head: normocephalic Respiratory: other (course bs, no wheeze) Cardiovascular: regular rate and rhythm (s1s2) Gastrointestinal: soft, non-tender, bowel sounds Extremities: edema Labs Result Diagram: 09/04/18 0600 09/04/18 0600 Results 24hrs Laboratory Tests Test 09/03/18 20:52 09/03/18 21:59 09/04/18 02:48 09/04/18 06:00 Bedside Glucose 244 H 242 H 176 White Blood Count 7.5 Red Blood Count 3.52 L Hemoglobin 8.8 L Hematocrit 28.1 L Mean Corpuscular 79.8 L Volume Mean Corpuscular 25.0 L Hemoglobin Mean Corpuscular 31.3 L Hemoglobin Concent Red Cell 15.9 H Distribution Width Platelet Count 255 Mean Platelet Volume 10.1 Immature 0.100 Granulocytes % Neutrophils % 68.0 Lymphocytes % 12.9 L Monocytes % 13.8 H Eosinophils % 4.4 Basophils % 0.8 Nucleated Red Blood 0.0 Cells % Immature 0.010 Granulocytes # Neutrophils # 5.1 Lymphocytes # 1.0 Monocytes # 1.0 H Eosinophils # 0.3 Basophils # 0.1 Nucleated Red Blood 0.0 Cells # Sodium Level 138 Potassium Level 3.7 Chloride Level 102 Carbon Dioxide Level 26 Anion Gap 10 Blood Urea Nitrogen 71 H Creatinine 2.85 H Est Glomerular Filtrat Rate mL/min Glucose Level 178 Calcium Level 9.2 Test 09/04/18 08:22 09/04/18 11:58 Bedside Glucose 185 285 H Medications Medications Current Medications IV Flush (NS 3 ml) 3 ml PER PROTOCOL IV ; Start 09/01/18 at 19:30 Ondansetron HCl (Zofran Inj) 4 mg Q6H PRN IV NAUSEA/VOMITING; Start 09/01/18 at 19:30 Acetaminophen (Tylenol Tab) 650 mg Q6H PRN PO .PAIN 1-3 OR TEMP; Start 09/01/18 at 19:30 Acetaminophen/ Hydrocodone Bitart ([place] (5/325)) 1 tab Q6H PRN PO .MOD PAIN 4- 6; Start 09/01/18 at 19:30 Morphine Sulfate (morphine) 2 mg Q4H PRN IV .SEVERE PAIN 7-10; Start 09/01/18 at 19:30 Docusate Sodium (Colace) 100 mg Q12H PRN PO .CONSTIPATION; Start 09/01/18 at 19:30 Magnesium Hydroxide (Milk Of Mag) 30 ml DAILY PRN PO .CONSTIPATION; Start 09/01 at 19:30 Lorazepam (Ativan) 0.5 mg Q6H PRN IV ANXIETY; Start 09/01/18 at 19:30 Albuterol/ Ipratropium (Duoneb) 3 ml Q4H RESP THERAPY PRN HHN SHORTNESS OF BREATH; Start 09/01/18 at 19:30 Hydralazine HCl (Apresoline) 10 mg Q6H PRN IV ELEVATED BLOOD PRESSURE; Start 09/01/18 at 19:30 Nitroglycerin (Nitroglycerin (Sl Tab) 0.4 Mg) 1 tab Q5M PRN SL ANGINA; Start 09/01/18 at 19:30 Apixaban (Eliquis) 2.5 mg BID PO Last administered on 09/04/18at 08:24; Admin Dose 2.5 MG; Start 09/01/18 at 21:00 Aspirin (Halfprin) 81 mg DAILY PO Last administered on 09/04/18 08:25; Admin Dose 81 MG; Start 09/02/18 at 09:00 Atorvastatin Calcium (Lipitor) 40 mg QHS PO Last administered on 09/03/18 21:05; Admin Dose 40 MG; Start 09/01/18 at 21:00 Bumetanide (Bumex) 1 mg BID DIURETICS PO Last administered on 09/04/18 05:48; Admin Dose 1 MG; Start 09/01/18 at 21:00 Hydralazine HCl (Apresoline) 100 mg BID PO Last administered on 09/04/18 08:25; Admin Dose 100 MG; Start 09/01/18 at 21:00 Isosorbide Mononitrate (Imdur) 30 mg DAILY PO Last administered on 09/04/18 08:25; Admin Dose 30 MG; Start 09/02/18 at 09:00 Thiamine HCl (Vitamin B1) 100 mg DAILY PO Last administered on 09/04/18 08:24; Admin Dose 100 MG; Start 09/02/18 at 09:00 Fish Oil (Fish Oil) 2,000 mg BID PO Last administered on 09/04/18 08:24; Admin Dose 2,000 MG; Start 09/01/18 at 22:00 Diagnostic Test (Pha) (Accu-Chek) 1 ea 02 XX Last administered on 09/04/18 02:57; Admin Dose 1 EA; Start 09/04/18 at 02:00 Insulin Glargine (Lantus) 15 units DAILY@0800 SC Last administered on 09/04/18 08:36; Admin Dose 15 UNITS; Start 09/04/18 at 08:00 Insulin Aspart (Novolog Insulin Pen) 5 unit WITH MEALS SC Last administered on 09/04/18 12:05; Admin Dose 5 UNIT; Start 09/03/18 at 11:50 Insulin Aspart (Novolog Insulin Pen) NOVOLOG *MILD* ALGORITHM WITH MEALS BEDTIME SC Last administered on 09/04/18 12:05; Admin Dose 4 UNIT; Start 09/03/18 at 11:50 Miscellaneous Information 1 ea NOTE XX ; Start 09/03/18 at 09:30 Glucose (Glutose) 15 gm Q15M PRN PO DECREASED GLUCOSE; Start 09/03/18 at 09:30 Glucose (Glutose) 22.5 gm Q15M PRN PO DECREASED GLUCOSE; Start 09/03/18 at 09:30 Dextrose (D50w Syringe) 25 ml Q15M PRN IV DECREASED GLUCOSE; Start 09/03/18 at 09:30 Dextrose (D50w Syringe) 50 ml Q15M PRN IV DECREASED GLUCOSE; Start 09/03/18 at 09:30 Glucagon (Glucagen) 1 mg Q15M PRN IM DECREASED GLUCOSE; Start 09/03/18 at 09:30 Glucose (Glutose) 15 gm Q15M PRN BUCCAL DECREASED GLUCOSE; Start 09/03/18 at 09:30 Carvedilol (Coreg) 12.5 mg BID PO Last administered on 09/04/18at 08:25; Admin Dose 12.5 MG; Start 09/03/18 at 21:00 Agustin Traylor DO Sep 04, 2018 17:03
[2018-09-04] MEDS: ATORVASTATIN 40 MG TAB PO SCH (20:30)
[2018-09-05] VITALS (7 sets, daily range): BP systolic 127–157; BP diastolic 71–85; PULSE 55–71; RESP 17–19
[2018-09-05] MEDS: ACCU-CHEK XX SCH (02:00)
[2018-09-05] MEDS: BUMETANIDE 1 MG TAB PO SCH ×2 (05:25→18:15)
[2018-09-05] MEDS: INSULIN ASPART [NOVOLOG] 3 ML PEN SC SCH ×7 (08:08→20:59)
[2018-09-05] MEDS: THIAMINE 100 MG TAB PO SCH (08:15)
[2018-09-05] MEDS: APIXABAN 5 MG TABLET PO SCH ×2 (08:16→20:49)
[2018-09-05] MEDS: ASPIRIN (EC) 81 MG TAB PO SCH (08:16)
[2018-09-05] MEDS: FISH OIL 1,000 MG CAP PO SCH ×2 (08:16→20:49)
[2018-09-05] MEDS: ISOSORBIDE MONONITRATE(SR)30 MG TAB PO SCH (08:18)
[2018-09-05] MEDS: INSULIN GLARGINE [LANTus] (100 UNITS/ML) SYG SC SCH (08:19)
--- NOTE | 2018-09-05 08:34 | CONS ---
Consult Date/Type/Reason Admit Date/Time Sep 01, 2018 at 19:14 Initial Consult Date 09/02/18 Requesting Provider: JAD SHIN NP Date/Time of Note DATE: 09/05/18 TIME: 08:32 Subjective 72-year-old gentleman with past medical history of cardiomyopathy, EF 20%, type 1 diabetes, hypertension and dyslipidemia, nonsustained ventricular tachycardia, coronary artery disease, CKD. He presents to the hospital after noticing dyspnea and chest pain. The patient was in this hospital a month ago, seen by Dr. Ruiz. The patient had a similar presentation with a congestive heart f ailure exacerbation. The patient was noted to have a CHF exacerbation again and an x-ray with pleural effusion with hypertension on presentation. The patient was admitted with [id number] congestive heart failure exacerbation, type 1 diabetes, on insulin. Creatinine was noted to be 2.5. The patient has had previous history of CKD. The lowest creatinine on record was at 2.1. Discharged with a creatinine of 2.7. There has been no recent fevers, chills, nausea, vomiting, chest pain, shortness of breath with evidence of effusion. No fevers, chills, nausea, vomiting. The patient denies history of frequent urinary tract infections or kidney stones. Denies nocturia. The patient was described as having CKD presumably from diabetes. overall improved. contiues good ou. PHYSICAL EXAMINATION: HEENT: Normocephalic, atraumatic. Pupils equal and reactive to light. Oropharynx has moist mucous membranes. NECK: Supple. HEART: Regular rate and rhythm. LUNGS: Diminished breath sounds bilaterally. ABDOMEN: Soft, nontender, nondistended. Bowel sounds to auscultation. EXTREMITIES: No clubbing, cyanosis or edema. Objective Vitals Vital Signs Date Temp Pulse Resp B/P (MAP) Pulse Ox O2 O2 Flow FiO2 Time Delivery Rate 09/05/18 97.8 55 17 145/85 95 07:18 (105) 09/05/18 Room Air 03:49 09/05/18 2.0 03:05 09/04/18 27 02:15 Intake and Output 09/04/18 09/04/18 09/05/18 1515:00 23:00 07:00 IntakeIntake Total 720 ml 480 ml 350 ml OutputOutput Total 200 ml BalanceBalance 520 ml 480 ml 350 ml Results/Medications Result Diagram: 09/05/1862109/05/18 0622 Results 24 hrs Laboratory Tests Test 09/04/18 11:58 09/04/18 17:12 09/04/18 20:41 09/05/18 06:22 Bedside Glucose 285 H 226 H 124 White Blood Count 8.8 Red Blood Count 3.49 L Hemoglobin 8.7 L Hematocrit 28.0 L Mean Corpuscular 80.2 L Volume Mean Corpuscular 24.9 L Hemoglobin Mean Corpuscular 31.1 L Hemoglobin Concent Red Cell 15.9 H Distribution Width Platelet Count 235 Mean Platelet Volume 10.2 Immature 0.300 Granulocytes % Neutrophils % 73.5 Lymphocytes % 8.6 L Monocytes % 12.3 H Eosinophils % 4.5 Basophils % 0.8 Nucleated Red Blood 0.0 Cells % Immature 0.030 Granulocytes # Neutrophils # 6.5 Lymphocytes # 0.8 Monocytes # 1.1 H Eosinophils # 0.4 Basophils # 0.1 Nucleated Red Blood 0.0 Cells # Sodium Level 139 Potassium Level 3.6 Chloride Level 102 Carbon Dioxide Level 28 Anion Gap 9 Blood Urea Nitrogen 74 H Creatinine 2.91 H Est Glomerular Filtrat Rate mL/min Glucose Level 169 Calcium Level 9.0 Phosphorus Level 4.8 Magnesium Level 2.0 Test 09/05/18 07:47 Bedside Glucose 173 Home Meds Active Scripts Thiamine* (Thiamine*) 100 Mg Tablet, 100 MG PO DAILY for 30 Days, #30 TAB Prov:CHUY HORTON MD 04/01/18 Reported Medications Bumetanide* (Bumetanide*) 1 Mg Tablet, 1 MG PO BID, TAB 09/01/18 Liraglutide (Victoza 3-Donnie) 0.6 Mg/0.1 Ml Pen.injctr, 1.8 MG SQ BID, SYR 07/30/18 [place]-3 Acid Ethyl Esters (Lovaza) 1 Gm Capsule, 2 GM PO BID, CAP 07/30/18 Apixaban* (Eliquis*) 2.5 Mg Tablet, 2.5 MG PO BID, TAB 06/07/18 Carvedilol* (Carvedilol*) 6.25 Mg Tablet, 6.25 MG PO BID, #60 TAB 06/07/18 Hydralazine Hcl* (Hydralazine Hcl*) 100 Mg Tablet, 100 MG PO BID, #90 TAB 06/07/18 Isosorbide Mononitrate* (Isosorbide Mononitrate*) 30 Mg Tab.er.24h, 30 MG PO DAILY, TAB 03/20/18 Aspirin* (Aspirin* EC) 81 Mg Tablet.dr, 81 MG PO DAILY, TAB 03/04/18 Insulin Glargine,Hum.rec.anlog (Topatric Solostar) 300 Unit/1 Ml Insuln.pen, 42 UNIT SQ QPM, EA 03/04/18 Atorvastatin* (Atorvastatin*) 40 Mg Tablet, 40 MG PO QHS, #30 TAB 03/04/18 Discontinued Scripts Bumetanide* (Bumetanide*) 1 Mg Tablet, 1 MG PO BID DIURETICS, #60 TAB 3 Refills Prov:SOFI RENTERIA S. 08/03/18 Medications Current Medications IV Flush (NS 3 ml) 3 ml PER PROTOCOL IV ; Start 09/01/18 at 19:30 Ondansetron HCl (Zofran Inj) 4 mg Q6H PRN IV NAUSEA/VOMITING; Start 09/01/18 at 19:30 Acetaminophen (Tylenol Tab) 650 mg Q6H PRN PO .PAIN 1-3 OR TEMP; Start 09/01/18 at 19:30 Acetaminophen/ Hydrocodone Bitart ([place] (5/325)) 1 tab Q6H PRN PO .MOD PAIN 4- 6; Start 09/01/18 at 19:30 Morphine Sulfate (morphine) 2 mg Q4H PRN IV .SEVERE PAIN 7-10; Start 09/01/18 at 19:30 Docusate Sodium (Colace) 100 mg Q12H PRN PO .CONSTIPATION; Start 09/01/18 at 19:30 Magnesium Hydroxide (Milk Of Mag) 30 ml DAILY PRN PO .CONSTIPATION; Start 09/01/18 at 19:30 Lorazepam (Ativan) 0.5 mg Q6H PRN IV ANXIETY; Start 09/01/18 at 19:30 Albuterol/ Ipratropium (Duoneb) 3 ml Q4H RESP THERAPY PRN HHN SHORTNESS OF BREATH; Start 09/01/18 at 19:30 Hydralazine HCl (Apresoline) 10 mg Q6H PRN IV ELEVATED BLOOD PRESSURE; Start 09/01/18 at 19:30 Nitroglycerin (Nitroglycerin (Sl Tab) 0.4 Mg) 1 tab Q5M PRN SL ANGINA; Start 09/01/18 at 19:30 Apixaban (Eliquis) 2.5 mg BID PO Last administered on 09/05/18 08:16; Admin Dose 2.5 MG; Start 09/01/18 at 21:00 Aspirin (Halfprin) 81 mg DAILY PO Last administered on 09/05/18 08:16; Admin Dose 81 MG; Start 09/02/18 at 09:00 Atorvastatin Calcium (Lipitor) 40 mg QHS PO Last administered on 09/04/18 20:30; Admin Dose 40 MG; Start 09/01/18 at 21:00 Bumetanide (Bumex) 1 mg BID DIURETICS PO Last administered on 09/05/18 05:25; Admin Dose 1 MG; Start 09/01/18 at 21:00 Hydralazine HCl (Apresoline) 100 mg BID PO Last administered on 09/05/18 08:16; Admin Dose 100 MG; Start 09/01/18 at 21:00 Isosorbide Mononitrate (Imdur) 30 mg DAILY PO Last administered on 09/05/18 08:18; Admin Dose 30 MG; Start 09/02/18 at 09:00 Thiamine HCl (Vitamin B1) 100 mg DAILY PO Last administered on 09/05/18 08:15; Admin Dose 100 MG; Start 09/02/18 at 09:00 Fish Oil (Fish Oil) 2,000 mg BID PO Last administered on 09/05/18 08:16; Admin Dose 2,000 MG; Start 09/01/18 at 22:00 Diagnostic Test (Pha) (Accu-Chek) 1 ea 02 XX Last administered on 09/04/18 02:57; Admin Dose 1 EA; Start 09/04/18 at 02:00 Insulin Glargine (Lantus) 15 units DAILY@0800 SC Last administered on 09/05/18 08:19; Admin Dose 15 UNITS; Start 09/04/18 at 08:00 Insulin Aspart (Novolog Insulin Pen) 5 unit WITH MEALS SC Last administered on 09/05/18 08:09; Admin Dose 5 UNIT; Start 09/03/18 at 11:50 Insulin Aspart (Novolog Insulin Pen) NOVOLOG *MILD* ALGORITHM WITH MEALS BEDTIME SC Last administered on 09/05/18at 08:08; Admin Dose 1 UNIT; Start 09/03/18 at 11:50 Miscellaneous Information 1 ea NOTE XX ; Start 09/03/18 at 09:30 Glucose (Glutose) 15 gm Q15M PRN PO DECREASED GLUCOSE; Start 09/03/18 at 09:30 Glucose (Glutose) 22.5 gm Q15M PRN PO DECREASED GLUCOSE; Start 09/03/18 at 09:30 Dextrose (D50w Syringe) 25 ml Q15M PRN IV DECREASED GLUCOSE; Start 09/03/18 at 09:30 Dextrose (D50w Syringe) 50 ml Q15M PRN IV DECREASED GLUCOSE; Start 09/03/18 at 09:30 Glucagon (Glucagen) 1 mg Q15M PRN IM DECREASED GLUCOSE; Start 09/03/18 at 09:30 Glucose (Glutose) 15 gm Q15M PRN BUCCAL DECREASED GLUCOSE; Start 09/03/18 at 09:30 Carvedilol (Coreg) 12.5 mg BID PO Last administered on 09/05/18at 08:18; Admin Dose 12.5 MG; Start 09/03/18 at 21:00 Assessment/Plan Hospital Course (Demo Recall) 1. Acute kidney injury, nonoliguric on underlying CKD4. Labs today are in line with previous admissions - given previous history of cardiorenal syndrome, he may need to tolerate some azotemia to achieve euvolemia. Watch labs daily. slowly creeping up. -Quantify proteinuria. Imaging of kidney functions worsens. All medications are dosed appropriately continue current diuretic regimen and adjust accordingly. 2. Acute decompensated heart failure and chronic kidney disease. Continue current medical management. Continue diuretic regimen. Also monitor electrolytes and renal function closely. 3. Anemia. Hemoglobin has decreased since previous admission. likely component of anemia of chronic kidney disease, likely benefit from Epogen fdc. Iron saturation here was low. There may be a component of blood loss anemia. Check stool for occult blood. 4. Type 1 diabetes, insulin adjust as needed. cont Victoza. 5. Dyslipidemia. Continue statin. 6. History of coronary artery disease, cardiac optimization. 7. Hypertension, controlled at present, may benefit from LOLY inhibitor once kidney function is known to be stable. COLE BLAKE MD Sep 05, 2018 08:34
--- NOTE | 2018-09-05 12:05 | PN ---
Date/Time of Note Date/Time of Note DATE: 09/05/18 TIME: 12:04 Assessment/Plan VTE Prophylaxis Risk score (from Ns)>0 risk: 5 SCD applied (from Ns): No SCD contraindicated: other Pharmacological prophylaxis: apixaban Lines/Catheters IV Catheter Type (from [facility]): [place] Assessment/Plan Hospital Course SUBJECTIVE: Denies any chest pain. OBJECTIVE: Physical Exam General: Obese 72 year-old male lying in bed in mild respiratory distress. HEENT: Normocephalic, atraumatic. Eyes: Anicteric sclerae, conjunctivae clear. ENT: Nasal septum midline, oral mucosa moist. Neck supple. JVD noticed. Respiratory: Bilaterally diminished breath sounds. Bilateral rales at the bases. Cardiovascular: S1, S2 heard. Regular rate and rhythm. Abdomen: Soft, nontender, and nondistended. Bowel sounds positive in all 4 quadrants. Genitourinary: Deferred. Extremities: No cyanosis, no clubbing. Trace B/L pedal edema. Peripheral pulses palpable. Neurologic: Cranial nerves II through XII grossly intact. The patient is awake, alert, and oriented. Skin: Normal skin turgor. No skin rashes Labs & Vitals per chart ASSESSMENT & PLAN This is a 72-year-old male with past medical history of essential hypertension, CAD status post coronary artery stenting, type 2 diabetes mellitus, cardiomyopathy (fitted with LifeVest on 04/03/2018), sustained VT (on 03/22/2018), benign prostatic hypertrophy, gout, and chronic kidney disease who came to the emergency room with chief complaint of chest pain and dyspnea. 1. Chest pain. ACS ruled out. Being followed by cardiology. 2. Congestive heart failure exacerbation. Acute on chronic systolic dysfunction. Continue diuresis while carefully monitoring renal function. 3. History of sustained VT on 03/22/2018. Status post LifeVest placement in March 2018. Currently has no LifeVest in place. 4. Cardiomyopathy. Ejection fraction of 30%. Continue beta-blockers and nitrates. No ACEI/ARB because of CKD stage IV. 5. Hypertension. Continue antihypertensives. 6. Type 2 diabetes mellitus. The patient will be continued on sliding scale insulin along with pre-meal insulin and basal insulin. Latest hemoglobin A1c 9.7. 7. CAD. Status post coronary artery stenting. The patient will be continued on antiplatelet therapy. 8. Chronic kidney disease. Nephrotoxic drugs will be used with caution. The patient's BUN and creatinine will be monitored closely. Nephrology follow up. 9. Dyslipidemia. Continue statins and fish oil. 10. Fluids, electrolytes, and nutrition. Carbohydrate controlled diet. 11. DVT prophylaxis. Factor Xa inhibitors. 12. Plan. Continue diuresis while carefully monitoring renal function. Await clinical improvement before discharging the patient. The patient was seen in collaboration with Dr. Allen. Result Diagram: 09/05/[id number]/05/18621 Results 24hrs Laboratory Tests Test 09/04/18 17:12 09/04/18 20:41 09/05/18 06:22 09/05/18 07:47 Bedside Glucose 226 H 124 173 White Blood Count 8.8 Red Blood Count 3.49 L Hemoglobin 8.7 L Hematocrit 28.0 L Mean Corpuscular 80.2 L Volume Mean Corpuscular 24.9 L Hemoglobin Mean Corpuscular 31.1 L Hemoglobin Concent Red Cell 15.9 H Distribution Width Platelet Count 235 Mean Platelet Volume 10.2 Immature 0.300 Granulocytes % Neutrophils % 73.5 Lymphocytes % 8.6 L Monocytes % 12.3 H Eosinophils % 4.5 Basophils % 0.8 Nucleated Red Blood 0.0 Cells % Immature 0.030 Granulocytes # Neutrophils # 6.5 Lymphocytes # 0.8 Monocytes # 1.1 H Eosinophils # 0.4 Basophils # 0.1 Nucleated Red Blood 0.0 Cells # Sodium Level 139 Potassium Level 3.6 Chloride Level 102 Carbon Dioxide Level 28 Anion Gap 9 Blood Urea Nitrogen 74 H Creatinine 2.91 H Est Glomerular Filtrat Rate mL/min Glucose Level 169 Calcium Level 9.0 Phosphorus Level 4.8 Magnesium Level 2.0 Exam/Review of Systems Exam Vitals Vital Signs Date Temp Pulse Resp B/P (MAP) Pulse Ox O2 O2 Flow FiO2 Time Delivery Rate 09/05/18 98.0 67 17 127/71 94 11:37 (89) 09/05/18 Room Air 03:49 09/05/18 2.0 03:05 09/04/18 27 02:15 Intake and Output 09/04/18 09/04/18 09/05/18 1515:00 23:00 07:00 IntakeIntake Total 720 ml 480 ml 350 ml OutputOutput Total 200 ml BalanceBalance 520 ml 480 ml 350 ml Results Results 24hrs Laboratory Tests Test 09/04/18 17:12 09/04/18 20:41 09/05/18 06:22 09/05/18 07:47 Bedside Glucose 226 H 124 173 White Blood Count 8.8 Red Blood Count 3.49 L Hemoglobin 8.7 L Hematocrit 28.0 L Mean Corpuscular 80.2 L Volume Mean Corpuscular 24.9 L Hemoglobin Mean Corpuscular 31.1 L Hemoglobin Concent Red Cell 15.9 H Distribution Width Platelet Count 235 Mean Platelet Volume 10.2 Immature 0.300 Granulocytes % Neutrophils % 73.5 Lymphocytes % 8.6 L Monocytes % 12.3 H Eosinophils % 4.5 Basophils % 0.8 Nucleated Red Blood 0.0 Cells % Immature 0.030 Granulocytes # Neutrophils # 6.5 Lymphocytes # 0.8 Monocytes # 1.1 H Eosinophils # 0.4 Basophils # 0.1 Nucleated Red Blood 0.0 Cells # Sodium Level 139 Potassium Level 3.6 Chloride Level 102 Carbon Dioxide Level 28 Anion Gap 9 Blood Urea Nitrogen 74 H Creatinine 2.91 H Est Glomerular Filtrat Rate mL/min Glucose Level 169 Calcium Level 9.0 Phosphorus Level 4.8 Magnesium Level 2.0 Medications Medication Current Medications IV Flush (NS 3 ml) 3 ml PER PROTOCOL IV ; Start 09/01/18 at 19:30 Ondansetron HCl (Zofran Inj) 4 mg Q6H PRN IV NAUSEA/VOMITING; Start 09/01/18 at 19:30 Acetaminophen (Tylenol Tab) 650 mg Q6H PRN PO .PAIN 1-3 OR TEMP; Start 09/01/18 at 19:30 Acetaminophen/ Hydrocodone Bitart ([place] (5/325)) 1 tab Q6H PRN PO .MOD PAIN 4- 6; Start 09/01/18 at 19:30 Morphine Sulfate (morphine) 2 mg Q4H PRN IV .SEVERE PAIN 7-10; Start 09/01/18 at 19:30 Docusate Sodium (Colace) 100 mg Q12H PRN PO .CONSTIPATION; Start 09/01/18 at 19:30 Magnesium Hydroxide (Milk Of Mag) 30 ml DAILY PRN PO .CONSTIPATION; Start 09/01/18 at 19:30 Lorazepam (Ativan) 0.5 mg Q6H PRN IV ANXIETY; Start 09/01/18 at 19:30 Albuterol/ Ipratropium (Duoneb) 3 ml Q4H RESP THERAPY PRN HHN SHORTNESS OF BREATH; Start 09/01/18 at 19:30 Hydralazine HCl (Apresoline) 10 mg Q6H PRN IV ELEVATED BLOOD PRESSURE; Start 09/01/18 at 19:30 Nitroglycerin (Nitroglycerin (Sl Tab) 0.4 Mg) 1 tab Q5M PRN SL ANGINA; Start 09/01/18 at 19:30 Apixaban (Eliquis) 2.5 mg BID PO Last administered on 09/05/18 08:16; Admin Dose 2.5 MG; Start 09/01/18 at 21:00 Aspirin (Halfprin) 81 mg DAILY PO Last administered on 09/05/18 08:16; Admin Dose 81 MG; Start 09/02/18 at 09:00 Atorvastatin Calcium (Lipitor) 40 mg QHS PO Last administered on 09/04/18 20:30; Admin Dose 40 MG; Start 09/01/18 at 21:00 Bumetanide (Bumex) 1 mg BID DIURETICS PO Last administered on 09/05/18 05:25; Admin Dose 1 MG; Start 09/01/18 at 21:00 Hydralazine HCl (Apresoline) 100 mg BID PO Last administered on 09/05/18 08:16; Admin Dose 100 MG; Start 09/01/18 at 21:00 Isosorbide Mononitrate (Imdur) 30 mg DAILY PO Last administered on 09/05/18 08:18; Admin Dose 30 MG; Start 09/02/18 at 09:00 Thiamine HCl (Vitamin B1) 100 mg DAILY PO Last administered on 09/05/18 08:15; Admin Dose 100 MG; Start 09/02/18 at 09:00 Fish Oil (Fish Oil) 2,000 mg BID PO Last administered on 09/05/18 08:16; Admin Dose 2,000 MG; Start 09/01/18 at 22:00 Diagnostic Test (Pha) (Accu-Chek) 1 ea 02 XX Last administered on 09/04/18 02:57; Admin Dose 1 EA; Start 09/04/18 at 02:00 Insulin Glargine (Lantus) 15 units DAILY@0800 SC Last administered on 7/23/19at 08:19; Admin Dose 15 UNITS; Start 09/04/18 at 08:00 Insulin Aspart (Novolog Insulin Pen) 5 unit WITH MEALS SC Last administered on 09/05/18at 08:09; Admin Dose 5 UNIT; Start 09/03/18 at 11:50 Insulin Aspart (Novolog Insulin Pen) NOVOLOG *MILD* ALGORITHM WITH MEALS BEDTIME SC Last administered on 09/05/18at 08:08; Admin Dose 1 UNIT; Start 09/03/18 at 11:50 Miscellaneous Information 1 ea NOTE XX ; Start 09/03/18 at 09:30 Glucose (Glutose) 15 gm Q15M PRN PO DECREASED GLUCOSE; Start 09/03/18 at 09:30 Glucose (Glutose) 22.5 gm Q15M PRN PO DECREASED GLUCOSE; Start 09/03/18 at 09:30 Dextrose (D50w Syringe) 25 ml Q15M PRN IV DECREASED GLUCOSE; Start 09/03/18 at 09:30 Dextrose (D50w Syringe) 50 ml Q15M PRN IV DECREASED GLUCOSE; Start 09/03/18 at 09:30 Glucagon (Glucagen) 1 mg Q15M PRN IM DECREASED GLUCOSE; Start 09/03/18 at 09:30 Glucose (Glutose) 15 gm Q15M PRN BUCCAL DECREASED GLUCOSE; Start 09/03/18 at 09:30 Carvedilol (Coreg) 12.5 mg BID PO Last administered on 09/05/18at 08:18; Admin Dose 12.5 MG; Start 09/03/18 at 21:00 DALLIN ADAMS NP Sep 05, 2018 12:05
--- NOTE | 2018-09-05 19:02 | CONS ---
Assessment/Plan Cardiology NYHA: IV Heart Failure Type: Acute on Chronic Heart Failure Type: Both Assessment/Plan Hospital Course (Demo Recall) Acute decompensated systolic congestive heart failure Cardia myopathy with ejection fraction 25% Mild to moderate coronary artery disease left heart catheterization January 2016 History of ventricular tachycardia, with history of LifeVest Acute kidney injury CKD Hypertension HR stable Cont Coreg Diuretics as tolerated in setting of CKD-being followed by renal Consultation Date/Type/Reason Admit Date/Time Sep 01, 2018 at 19:14 Initial Consult Date 09/02/18 Type of Consult Cardiology Requesting Provider: JAD SHIN NP Date/Time of Note DATE: 09/05/18 TIME: 19:01 24 HR Interval Summary Free Text/Dictation Shortness of breath slightly better. No chest pain Exam/Review of Systems Vital Signs Vitals Vital Signs Date Temp Pulse Resp B/P (MAP) Pulse Ox O2 O2 Flow FiO2 Time Delivery Rate 09/05/18 98.9 68 17 130/71 97 15:23 (90) 09/05/18 Room Air 03:49 09/05/18 2.0 03:05 09/04/18 27 02:15 Intake and Output 09/04/18 09/04/18 09/05/18 1515:00 23:00 07:00 IntakeIntake Total 720 ml 480 ml 350 ml OutputOutput Total 200 ml BalanceBalance 520 ml 480 ml 350 ml Exam Constitutional: alert, oriented (No apparent distress, sitting in chair) Head: normocephalic Respiratory: other (Coarse breath sounds bilaterally, no wheezing) Cardiovascular: regular rate and rhythm (S1-S2 heard) Gastrointestinal: soft, non-tender, bowel sounds Extremities: edema (Trace) Labs Result Diagram: 09/05/1822 09/05/1822 Results 24hrs Laboratory Tests Test 09/04/18 20:41 09/05/18 06:22 09/05/18 07:47 09/05/18 12:02 Bedside Glucose 124 173 302 H White Blood Count 8.8 Red Blood Count 3.49 L Hemoglobin 8.7 L Hematocrit 28.0 L Mean Corpuscular 80.2 L Volume Mean Corpuscular 24.9 L Hemoglobin Mean Corpuscular 31.1 L Hemoglobin Concent Red Cell 15.9 H Distribution Width Platelet Count 235 Mean Platelet Volume 10.2 Immature 0.300 Granulocytes % Neutrophils % 73.5 Lymphocytes % 8.6 L Monocytes % 12.3 H Eosinophils % 4.5 Basophils % 0.8 Nucleated Red Blood 0.0 Cells % Immature 0.030 Granulocytes # Neutrophils # 6.5 Lymphocytes # 0.8 Monocytes # 1.1 H Eosinophils # 0.4 Basophils # 0.1 Nucleated Red Blood 0.0 Cells # Sodium Level 139 Potassium Level 3.6 Chloride Level 102 Carbon Dioxide Level 28 Anion Gap 9 Blood Urea Nitrogen 74 H Creatinine 2.91 H Est Glomerular Filtrat Rate mL/min Glucose Level 169 Calcium Level 9.0 Phosphorus Level 4.8 Magnesium Level 2.0 Test 09/05/18 17:10 Bedside Glucose 201 Medications Medications Current Medications IV Flush (NS 3 ml) 3 ml PER PROTOCOL IV ; Start 09/01/18 at 19:30 Ondansetron HCl (Zofran Inj) 4 mg Q6H PRN IV NAUSEA/VOMITING; Start 09/01/18 at 19:30 Acetaminophen (Tylenol Tab) 650 mg Q6H PRN PO .PAIN 1-3 OR TEMP; Start 09/01/18 at 19:30 Acetaminophen/ Hydrocodone Bitart ([place] (5/325)) 1 tab Q6H PRN PO .MOD PAIN 4- 6; Start 09/01/18 at 19:30 Morphine Sulfate (morphine) 2 mg Q4H PRN IV .SEVERE PAIN 7-10; Start 09/01/18 at 19:30 Docusate Sodium (Colace) 100 mg Q12H PRN PO .CONSTIPATION; Start 09/01/18 at 19:30 Magnesium Hydroxide (Milk Of Mag) 30 ml DAILY PRN PO .CONSTIPATION; Start 09/01/18 at 19:30 Lorazepam (Ativan) 0.5 mg Q6H PRN IV ANXIETY; Start 09/01/18 at 19:30 Albuterol/ Ipratropium (Duoneb) 3 ml Q4H RESP THERAPY PRN HHN SHORTNESS OF BREATH; Start 09/01/18 at 19:30 Hydralazine HCl (Apresoline) 10 mg Q6H PRN IV ELEVATED BLOOD PRESSURE; Start 09/01/18 at 19:30 Nitroglycerin (Nitroglycerin (Sl Tab) 0.4 Mg) 1 tab Q5M PRN SL ANGINA; Start 09/01/18 at 19:30 Apixaban (Eliquis) 2.5 mg BID PO Last administered on 09/05/18 08:16; Admin Dose 2.5 MG; Start 09/01/18 at 21:00 Aspirin (Halfprin) 81 mg DAILY PO Last administered on 09/05/18 08:16; Admin Dose 81 MG; Start 09/02/18 at 09:00 Atorvastatin Calcium (Lipitor) 40 mg QHS PO Last administered on 09/04/18 20:30; Admin Dose 40 MG; Start 09/01/18 at 21:00 Bumetanide (Bumex) 1 mg BID DIURETICS PO Last administered on 09/05/18 18:15; Admin Dose 1 MG; Start 09/01/18 at 21:00 Hydralazine HCl (Apresoline) 100 mg BID PO Last administered on 09/05/18 08:16; Admin Dose 100 MG; Start 09/01/18 at 21:00 Isosorbide Mononitrate (Imdur) 30 mg DAILY PO Last administered on 09/05/18 08:18; Admin Dose 30 MG; Start 09/02/18 at 09:00 Thiamine HCl (Vitamin B1) 100 mg DAILY PO Last administered on 09/05/18 08:15; Admin Dose 100 MG; Start 09/02/18 at 09:00 Fish Oil (Fish Oil) 2,000 mg BID PO Last administered on 09/05/18 08:16; Admin Dose 2,000 MG; Start 09/01/18 at 22:00 Diagnostic Test (Pha) (Accu-Chek) 1 ea 02 XX Last administered on 09/04/18at 02:57; Admin Dose 1 EA; Start 09/04/18 at 02:00 Insulin Aspart (Novolog Insulin Pen) NOVOLOG *MILD* ALGORITHM WITH MEALS BEDTIME SC Last administered on 09/05/18 17:16; Admin Dose 2 UNIT; Start 09/03/18 at 11:50 Miscellaneous Information 1 ea NOTE XX ; Start 09/03/18 at 09:30 Glucose (Glutose) 15 gm Q15M PRN PO DECREASED GLUCOSE; Start 09/03/18 at 09:30 Glucose (Glutose) 22.5 gm Q15M PRN PO DECREASED GLUCOSE; Start 09/03/18 at 09:30 Dextrose (D50w Syringe) 25 ml Q15M PRN IV DECREASED GLUCOSE; Start 09/03/18 at 09:30 Dextrose (D50w Syringe) 50 ml Q15M PRN IV DECREASED GLUCOSE; Start 09/03/18 at 09:30 Glucagon (Glucagen) 1 mg Q15M PRN IM DECREASED GLUCOSE; Start 09/03/18 at 09:30 Glucose (Glutose) 15 gm Q15M PRN BUCCAL DECREASED GLUCOSE; Start 09/03/18 at 09:30 Carvedilol (Coreg) 12.5 mg BID PO Last administered on 09/05/18at 08:18; Admin Dose 12.5 MG; Start 09/03/18 at 21:00 Insulin Aspart (Novolog Insulin Pen) 6 unit WITH MEALS SC Last administered on 09/05/18at 17:16; Admin Dose 6 UNIT; Start 09/05/18 at 17:55 Insulin Glargine (Lantus) 17 units DAILY@0800 SC ; Start 09/06/18 at 08:00 Agustin Traylor DO Sep 05, 2018 19:02
[2018-09-05] MEDS: ATORVASTATIN 40 MG TAB PO SCH (20:49)
[2018-09-06] MEDS: ACCU-CHEK XX SCH (01:50)
[2018-09-06 04:08] VITALS: BP 144/73; PULSE 64; RESP 20
[2018-09-06] MEDS: BUMETANIDE 1 MG TAB PO SCH ×2 (05:41→18:42)
[2018-09-06 07:23] VITALS: BP 135/69; PULSE 61; RESP 17
--- NOTE | 2018-09-06 07:52 | CONS ---
Consult Date/Type/Reason Admit Date/Time Sep 01, 2018 at 19:14 Initial Consult Date 09/02/18 Requesting Provider: JAD SHIN NP Date/Time of Note DATE: 09/06/18 TIME: 07:46 Subjective 72-year-old gentleman with past medical history of cardiomyopathy, EF 20%, type 1 diabetes, hypertension and dyslipidemia, nonsustained ventricular tachycardia, coronary artery disease, CKD. He presents to the hospital after noticing dyspnea and chest pain. The patient was in this hospital a month ago, seen by Dr. Ruiz. The patient had a similar presentation with a congestive heart f ailure exacerbation. The patient was noted to have a CHF exacerbation again and an x-ray with pleural effusion with hypertension on presentation. The patient was admitted with [id number] congestive heart failure exacerbation, type 1 diabetes, on insulin. Creatinine was noted to be 2.5. The patient has had previous history of CKD. The lowest creatinine on record was at 2.1. Discharged with a creatinine of 2.7. There has been no recent fevers, chills, nausea, vomiting, chest pain, shortness of breath with evidence of effusion. No fevers, chills, nausea, vomiting. The patient denies history of frequent urinary tract infections or kidney stones. Denies nocturia. The patient was described as having CKD presumably from diabetes. overall improved. contiues good ou. on Bumex 1 po bid PHYSICAL EXAMINATION: HEENT: Normocephalic, atraumatic. Pupils equal and reactive to light. Oropharynx has moist mucous membranes. NECK: Supple. HEART: Regular rate and rhythm. LUNGS: clear breath sounds bilaterally. ABDOMEN: Soft, nontender, nondistended. Bowel sounds to auscultation. EXTREMITIES: No clubbing, cyanosis or edema. Objective Vitals Vital Signs Date Temp Pulse Resp B/P (MAP) Pulse Ox O2 O2 Flow FiO2 Time Delivery Rate 09/06/18 98.3 61 17 135/69 97 07:23 (91) 09/06/18 Nasal 04:08 Cannula 09/05/18 2.0 03:05 09/04/18 27 02:15 Intake and Output 09/05/18 09/05/18 09/06/18 1515:00 23:00 07:00 IntakeIntake Total 1050 ml 300 ml 440 ml OutputOutput Total 200 ml 450 ml 600 ml BalanceBalance 850 ml -150 ml -160 ml Results/Medications Result Diagram: 09/06/18 0642 09/06/18 0642 Results 24 hrs Laboratory Tests Test 09/05/18 07:47 09/05/18 12:02 09/05/18 17:10 09/05/18 20:54 Bedside Glucose 173 302 H 201 202 Test 09/06/18 01:33 09/06/18 06:42 Bedside Glucose 123 White Blood Count 8.6 Red Blood Count 3.49 L Hemoglobin 8.6 L Hematocrit 28.0 L Mean Corpuscular 80.2 L Volume Mean Corpuscular 24.6 L Hemoglobin Mean Corpuscular 30.7 L Hemoglobin Concent Red Cell 16.2 H Distribution Width Platelet Count 234 Mean Platelet Volume 10.2 Immature 0.300 Granulocytes % Neutrophils % 72.7 Lymphocytes % 8.5 L Monocytes % 14.8 H Eosinophils % 3.1 Basophils % 0.6 Nucleated Red Blood 0.0 Cells % Immature 0.030 Granulocytes # Neutrophils # 6.3 Lymphocytes # 0.7 L Monocytes # 1.3 H Eosinophils # 0.3 Basophils # 0.1 Nucleated Red Blood 0.0 Cells # Sodium Level 137 Potassium Level 3.5 Chloride Level 101 Carbon Dioxide Level 26 Anion Gap 10 Blood Urea Nitrogen 80 H Creatinine 2.99 H Est Glomerular Filtrat Rate mL/min Glucose Level 191 Calcium Level 8.8 Phosphorus Level 4.9 Magnesium Level 1.9 Home Meds Active Scripts Thiamine* (Thiamine*) 100 Mg Tablet, 100 MG PO DAILY for 30 Days, #30 TAB Prov:CHUY HORTON MD 04/01/18 Reported Medications Bumetanide* (Bumetanide*) 1 Mg Tablet, 1 MG PO BID, TAB 09/01/18 Liraglutide (Victoza 3-Donnie) 0.6 Mg/0.1 Ml Pen.injctr, 1.8 MG SQ BID, SYR 07/30/18 [place]-3 Acid Ethyl Esters (Lovaza) 1 Gm Capsule, 2 GM PO BID, CAP 07/30/18 Apixaban* (Eliquis*) 2.5 Mg Tablet, 2.5 MG PO BID, TAB 06/07/18 Carvedilol* (Carvedilol*) 6.25 Mg Tablet, 6.25 MG PO BID, #60 TAB 4/24/19 Hydralazine Hcl* (Hydralazine Hcl*) 100 Mg Tablet, 100 MG PO BID, #90 TAB 06/07/18 Isosorbide Mononitrate* (Isosorbide Mononitrate*) 30 Mg Tab.er.24h, 30 MG PO DAILY, TAB 03/20/18 Aspirin* (Aspirin* EC) 81 Mg Tablet.dr, 81 MG PO DAILY, TAB 03/04/18 Insulin Glargine,Hum.rec.anlog (Topatric Solviviane) 300 Unit/1 Ml Insuln.pen, 42 UNIT SQ QPM, EA 03/04/18 Atorvastatin* (Atorvastatin*) 40 Mg Tablet, 40 MG PO QHS, #30 TAB 03/04/18 Discontinued Scripts Bumetanide* (Bumetanide*) 1 Mg Tablet, 1 MG PO BID DIURETICS, #60 TAB 3 Refills Prov:RASUYAPA,SOFI S. 08/03/18 Medications Current Medications IV Flush (NS 3 ml) 3 ml PER PROTOCOL IV ; Start 09/01/18 at 19:30 Ondansetron HCl (Zofran Inj) 4 mg Q6H PRN IV NAUSEA/VOMITING; Start 09/01/18 at 19:30 Acetaminophen (Tylenol Tab) 650 mg Q6H PRN PO .PAIN 1-3 OR TEMP; Start 09/01/18 at 19:30 Acetaminophen/ Hydrocodone Bitart ([place] (5/325)) 1 tab Q6H PRN PO .MOD PAIN 4- 6; Start 09/01/18 at 19:30 Morphine Sulfate (morphine) 2 mg Q4H PRN IV .SEVERE PAIN 7-10; Start 09/01/18 at 19:30 Docusate Sodium (Colace) 100 mg Q12H PRN PO .CONSTIPATION; Start 09/01/18 at 19:30 Magnesium Hydroxide (Milk Of Mag) 30 ml DAILY PRN PO .CONSTIPATION; Start 09/01/18 at 19:30 Lorazepam (Ativan) 0.5 mg Q6H PRN IV ANXIETY; Start 09/01/18 at 19:30 Albuterol/ Ipratropium (Duoneb) 3 ml Q4H RESP THERAPY PRN HHN SHORTNESS OF BREATH; Start 09/01/18 at 19:30 Hydralazine HCl (Apresoline) 10 mg Q6H PRN IV ELEVATED BLOOD PRESSURE; Start 09/01/18 at 19:30 Nitroglycerin (Nitroglycerin (Sl Tab) 0.4 Mg) 1 tab Q5M PRN SL ANGINA; Start 09/01/18 at 19:30 Apixaban (Eliquis) 2.5 mg BID PO Last administered on 09/05/18 20:49; Admin Dose 2.5 MG; Start 09/01/18 at 21:00 Aspirin (Halfprin) 81 mg DAILY PO Last administered on 09/05/18 08:16; Admin Dose 81 MG; Start 09/02/18 at 09:00 Atorvastatin Calcium (Lipitor) 40 mg QHS PO Last administered on 09/05/18 20:49; Admin Dose 40 MG; Start 09/01/18 at 21:00 Bumetanide (Bumex) 1 mg BID DIURETICS PO Last administered on 09/06/18 05:41; Admin Dose 1 MG; Start 09/01/18 at 21:00 Hydralazine HCl (Apresoline) 100 mg BID PO Last administered on 09/05/18 20:50; Admin Dose 100 MG; Start 09/01/18 at 21:00 Isosorbide Mononitrate (Imdur) 30 mg DAILY PO Last administered on 09/05/18 08:18; Admin Dose 30 MG; Start 09/02/18 at 09:00 Thiamine HCl (Vitamin B1) 100 mg DAILY PO Last administered on 09/05/18 08:15; Admin Dose 100 MG; Start 09/02/18 at 09:00 Fish Oil (Fish Oil) 2,000 mg BID PO Last administered on 09/05/18 20:49; Admin Dose 2,000 MG; Start 09/01/18 at 22:00 Diagnostic Test (Pha) (Accu-Chek) 1 ea 02 XX Last administered on 09/06/18 01:50; Admin Dose 1 EA; Start 09/04/18 at 02:00 Insulin Aspart (Novolog Insulin Pen) NOVOLOG *MILD* ALGORITHM WITH MEALS BEDTIME SC Last administered on 09/05/18 20:59; Admin Dose 1 UNIT; Start at 11:50 Miscellaneous Information 1 ea NOTE XX ; Start 09/03/18 at 09:30 Glucose (Glutose) 15 gm Q15M PRN PO DECREASED GLUCOSE; Start 09/03/18 at 09:30 Glucose (Glutose) 22.5 gm Q15M PRN PO DECREASED GLUCOSE; Start 09/03/18 at 09:30 Dextrose (D50w Syringe) 25 ml Q15M PRN IV DECREASED GLUCOSE; Start 09/03/18 at 09:30 Dextrose (D50w Syringe) 50 ml Q15M PRN IV DECREASED GLUCOSE; Start 09/03/18 at 09:30 Glucagon (Glucagen) 1 mg Q15M PRN IM DECREASED GLUCOSE; Start 09/03/18 at 09:30 Glucose (Glutose) 15 gm Q15M PRN BUCCAL DECREASED GLUCOSE; Start 09/03/18 at 09:30 Carvedilol (Coreg) 12.5 mg BID PO Last administered on 09/05/18at 20:50; Admin Dose 12.5 MG; Start 09/03/18 at 21:00 Insulin Aspart (Novolog Insulin Pen) 6 unit WITH MEALS SC Last administered on 09/05/18at 17:16; Admin Dose 6 UNIT; Start 09/05/18 at 17:55 Insulin Glargine (Lantus) 17 units DAILY@0800 SC ; Start 09/06/18 at 08:00 Assessment/Plan Hospital Course (Demo Recall) 1. Acute kidney injury, nonoliguric on underlying CKD4. Labs today are in line with previous admissions - given previous history of cardiorenal syndrome, he may need to tolerate some azotemia to achieve euvolemia. Watch labs daily. slowly creeping up. -Quantify proteinuria. Imaging of kidney functions worsens. All medications are dosed appropriately continue current diuretic regimen and adjust acco rdingly. 2. Acute decompensated heart failure and chronic kidney disease. Continue current medical management. Continue diuretic regimen. Also monitor electrolytes and renal function closely. 3. Anemia. Hemoglobin has decreased since previous admission. 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 Iron saturation here was low. There may be a component of blood loss anemia. Check stool for occult blood. negative x1. will give iv fe. 4. Type 1 diabetes, insulin adjust as needed. cont Victoza. 5. Dyslipidemia. Continue statin. 6. History of coronary artery disease, cardiac optimization. 7. Hypertension, controlled at present, may benefit from LOLY inhibitor once kidney function is known to be stable. COLE BLAKE MD Sep 06, 2018 07:52
[2018-09-06] MEDS: FISH OIL 1,000 MG CAP PO SCH ×2 (08:05→21:05)
[2018-09-06] MEDS: THIAMINE 100 MG TAB PO SCH (08:05)
[2018-09-06] MEDS: ASPIRIN (EC) 81 MG TAB PO SCH (08:06)
[2018-09-06] MEDS: APIXABAN 5 MG TABLET PO SCH ×2 (08:06→21:05)
[2018-09-06] MEDS: ISOSORBIDE MONONITRATE(SR)30 MG TAB PO SCH (08:07)
[2018-09-06] MEDS: INSULIN ASPART [NOVOLOG] 3 ML PEN SC SCH ×7 (08:21→21:00)
[2018-09-06] MEDS: INSULIN GLARGINE [LANTus] (100 UNITS/ML) SYG SC SCH (08:21)
--- NOTE | 2018-09-06 11:21 | PN ---
Date/Time of Note Date/Time of Note DATE: 09/06/18 TIME: 11:20 Assessment/Plan VTE Prophylaxis Risk score (from Ns)>0 risk: 2 SCD applied (from Ns): No SCD contraindicated: other Pharmacological prophylaxis: apixaban Lines/Catheters IV C[facility]ter Type [facility]from [facility]): [place] Assessment/Plan Hospital Course SUBJECTIVE: Denies any chest pain. Complains of dyspnea. OBJECTIVE: Physical Exam General: Obese 72 year-old male lying in bed in mild respiratory distress. HEENT: Normocephalic, atraumatic. Eyes: Anicteric sclerae, conjunctivae clear. ENT: Nasal septum midline, oral mucosa moist. Neck supple. JVD noticed. Respiratory: Bilaterally diminished breath sounds. Bilateral rales at the bases. Cardiovascular: S1, S2 heard. Regular rate and rhythm. Abdomen: Soft, nontender, and nondistended. Bowel sounds positive in all 4 quadrants. Genitourinary: Deferred. Extremities: No cyanosis, no clubbing. Trace B/L pedal edema. Peripheral pulses palpable. Neurologic: Cranial nerves II through XII grossly intact. The patient is awake, alert, and oriented. Skin: Normal skin turgor. No skin rashes Labs & Vitals per chart ASSESSMENT & PLAN This is a 72-year-old male with past medical history of essential hypertension, CAD status post coronary artery stenting, type 2 diabetes mellitus, cardiomyopathy (fitted with LifeVest on 04/03/2018), sustained VT (on 03/22/2018), benign prostatic hypertrophy, gout, and chronic kidney disease who came to the emergency room with chief complaint of chest pain and dyspnea. 1. Chest pain. ACS ruled out. Being followed by cardiology. 2. Congestive heart failure exacerbation. Acute on chronic systolic dysfunction. Continue diuresis while carefully monitoring renal function. 3. History of sustained VT on 03/22/2018. Status post LifeVest placement in March 2018. Currently has no LifeVest in place. 4. Cardiomyopathy. Ejection fraction of 30%. Continue beta-blockers and nitrates. No ACEI/ARB because of CKD stage IV. 5. Hypertension. Continue antihypertensives. 6. Type 2 diabetes mellitus. The patient will be continued on sliding scale insulin along with pre-meal insulin and basal insulin. Latest hemoglobin A1c 9.7. 7. CAD. Status post coronary artery stenting. The patient will be continued on antiplatelet therapy. 8. Chronic kidney disease. Nephrotoxic drugs will be used with caution. The patient's BUN and creatinine will be monitored closely. Nephrology follow up. 9. Dyslipidemia. Continue statins and fish oil. 10. Fluids, electrolytes, and nutrition. Carbohydrate controlled diet. 11. DVT prophylaxis. Factor Xa inhibitors. 12. Plan. Continue diuresis while carefully monitoring renal function. Await clinical improvement before discharging the patient. The patient was seen in collaboration with Dr. Allen. Result Diagram: 09/06/18 0642 09/06/18 0642 Results 24hrs Laboratory Tests Test 09/05/18 12:02 09/05/18 17:10 09/05/18 20:54 09/06/18 01:33 Bedside Glucose 302 H 201 202 123 Test 09/06/18 06:42 09/06/18 08:09 White Blood Count 8.6 Red Blood Count 3.49 L Hemoglobin 8.6 L Hematocrit 28.0 L Mean Corpuscular 80.2 L Volume Mean Corpuscular 24.6 L Hemoglobin Mean Corpuscular 30.7 L Hemoglobin Concent Red Cell 16.2 H Distribution Width Platelet Count 234 Mean Platelet Volume 10.2 Immature 0.300 Granulocytes % Neutrophils % 72.7 Lymphocytes % 8.5 L Monocytes % 14.8 H Eosinophils % 3.1 Basophils % 0.6 Nucleated Red Blood 0.0 Cells % Immature 0.030 Granulocytes # Neutrophils # 6.3 Lymphocytes # 0.7 L Monocytes # 1.3 H Eosinophils # 0.3 Basophils # 0.1 Nucleated Red Blood 0.0 Cells # Sodium Level 137 Potassium Level 3.5 Chloride Level 101 Carbon Dioxide Level 26 Anion Gap 10 Blood Urea Nitrogen 80 H Creatinine 2.99 H Est Glomerular Filtrat Rate mL/min Glucose Level 191 Calcium Level 8.8 Phosphorus Level 4.9 Magnesium Level 1.9 Bedside Glucose 204 Exam/Review of Systems Exam Vitals Vital Signs Date Temp Pulse Resp B/P (MAP) Pulse Ox O2 O2 Flow FiO2 Time Delivery Rate 09/06/18 98.3 61 17 135/69 97 07:23 (91) 09/06/18 Nasal 04:08 Cannula 09/05/18 2.0 03:05 09/04/18 27 02:15 Intake and Output 09/05/18 09/05/18 09/06/18 1515:00 23:00 07:00 IntakeIntake Total 1050 ml 300 ml 440 ml OutputOutput Total 200 ml 450 ml 600 ml BalanceBalance 850 ml -150 ml -160 ml Results Results 24hrs Laboratory Tests Test 09/05/18 12:02 09/05/18 17:10 09/05/18 20:54 09/06/18 01:33 Bedside Glucose 302 H 201 202 123 Test 09/06/18 06:42 09/06/18 08:09 White Blood Count 8.6 Red Blood Count 3.49 L Hemoglobin 8.6 L Hematocrit 28.0 L Mean Corpuscular 80.2 L Volume Mean Corpuscular 24.6 L Hemoglobin Mean Corpuscular 30.7 L Hemoglobin Concent Red Cell 16.2 H Distribution Width Platelet Count 234 Mean Platelet Volume 10.2 Immature 0.300 Granulocytes % Neutrophils % 72.7 Lymphocytes % 8.5 L Monocytes % 14.8 H Eosinophils % 3.1 Basophils % 0.6 Nucleated Red Blood 0.0 Cells % Immature 0.030 Granulocytes # Neutrophils # 6.3 Lymphocytes # 0.7 L Monocytes # 1.3 H Eosinophils # 0.3 Basophils # 0.1 Nucleated Red Blood 0.0 Cells # Sodium Level 137 Potassium Level 3.5 Chloride Level 101 Carbon Dioxide Level 26 Anion Gap 10 Blood Urea Nitrogen 80 H Creatinine 2.99 H Est Glomerular Filtrat Rate mL/min Glucose Level 191 Calcium Level 8.8 Phosphorus Level 4.9 Magnesium Level 1.9 Bedside Glucose 204 Medications Medication Current Medications IV Flush (NS 3 ml) 3 ml PER PROTOCOL IV ; Start 09/01/18 at 19:30 Ondansetron HCl (Zofran Inj) 4 mg Q6H PRN IV NAUSEA/VOMITING; Start 09/01/18 at 19:30 Acetaminophen (Tylenol Tab) 650 mg Q6H PRN PO .PAIN 1-3 OR TEMP; Start 09/01/18 at 19:30 Acetaminophen/ Hydrocodone Bitart ([place] (5/325)) 1 tab Q6H PRN PO .MOD PAIN 4- 6; Start 09/01/18 at 19:30 Morphine Sulfate (morphine) 2 mg Q4H PRN IV .SEVERE PAIN 7-10; Start 09/01/18 at 19:30 Docusate Sodium (Colace) 100 mg Q12H PRN PO .CONSTIPATION; Start 09/01/18 at 19:30 Magnesium Hydroxide (Milk Of Mag) 30 ml DAILY PRN PO .CONSTIPATION; Start at 19:30 Lorazepam (Ativan) 0.5 mg Q6H PRN IV ANXIETY; Start 09/01/18 at 19:30 Albuterol/ Ipratropium (Duoneb) 3 ml Q4H RESP THERAPY PRN HHN SHORTNESS OF BREATH; Start 09/01/18 at 19:30 Hydralazine HCl (Apresoline) 10 mg Q6H PRN IV ELEVATED BLOOD PRESSURE; Start 09/01/18 at 19:30 Nitroglycerin (Nitroglycerin (Sl Tab) 0.4 Mg) 1 tab Q5M PRN SL ANGINA; Start 09/01/18 at 19:30 Apixaban (Eliquis) 2.5 mg BID PO Last administered on 09/06/18 08:06; Admin Dose 2.5 MG; Start 09/01/18 at 21:00 Aspirin (Halfprin) 81 mg DAILY PO Last administered on 09/06/18 08:06; Admin Dose 81 MG; Start 09/02/18 at 09:00 Atorvastatin Calcium (Lipitor) 40 mg QHS PO Last administered on 09/05/18 20:49; Admin Dose 40 MG; Start 09/01/18 at 21:00 Bumetanide (Bumex) 1 mg BID DIURETICS PO Last administered on 09/06/18 05:41; Admin Dose 1 MG; Start 09/01/18 at 21:00 Hydralazine HCl (Apresoline) 100 mg BID PO Last administered on 09/06/18 08:07; Admin Dose 100 MG; Start 09/01/18 at 21:00 Isosorbide Mononitrate (Imdur) 30 mg DAILY PO Last administered on 09/06/18 08:07; Admin Dose 30 MG; Start 09/02/18 at 09:00 Thiamine HCl (Vitamin B1) 100 mg DAILY PO Last administered on 09/06/18 08:05; Admin Dose 100 MG; Start 09/02/18 at 09:00 Fish Oil (Fish Oil) 2,000 mg BID PO Last administered on 09/06/18 08:05; Admin Dose 2,000 MG; Start 09/01/18 at 22:00 Diagnostic Test (Pha) (Accu-Chek) 1 ea 02 XX Last administered on 09/06/18at 01:50; Admin Dose 1 EA; Start 09/04/18 at 02:00 Insulin Aspart (Novolog Insulin Pen) NOVOLOG *MILD* ALGORITHM WITH MEALS BEDTIME SC Last administered on 09/06/18at 08:21; Admin Dose 2 UNIT; Start 09/03/18 at 11:50 Miscellaneous Information 1 ea NOTE XX ; Start 09/03/18 at 09:30 Glucose (Glutose) 15 gm Q15M PRN PO DECREASED GLUCOSE; Start 09/03/18 at 09:30 Glucose (Glutose) 22.5 gm Q15M PRN PO DECREASED GLUCOSE; Start 09/03/18 at 09:30 Dextrose (D50w Syringe) 25 ml Q15M PRN IV DECREASED GLUCOSE; Start 09/03/18 at 09:30 Dextrose (D50w Syringe) 50 ml Q15M PRN IV DECREASED GLUCOSE; Start 09/03/18 at 09:30 Glucagon (Glucagen) 1 mg Q15M PRN IM DECREASED GLUCOSE; Start 09/03/18 at 09:30 Glucose (Glutose) 15 gm Q15M PRN BUCCAL DECREASED GLUCOSE; Start 09/03/18 at 09:30 Carvedilol (Coreg) 12.5 mg BID PO Last administered on 09/06/18at 08:17; Admin Dose 12.5 MG; Start 09/03/18 at 21:00 Insulin Aspart (Novolog Insulin Pen) 6 unit WITH MEALS SC Last administered on 09/06/18at 08:21; Admin Dose 6 UNIT; Start 09/05/18 at 17:55 Insulin Glargine (Lantus) 17 units DAILY@0800 SC Last administered on 09/06/18at 08:21; Admin Dose 17 UNITS; Start 09/06/18 at 08:00 Ferric Sodium Gluconate Complex 125 mg/Sodium Chloride 100 ml @ 100 mls/hr DAILY@1300 IVPB ; Start 09/06/18 at 13:00; Stop 09/08/18 at 13:59 DALLIN ADAMS NP Sep 06, 2018 11:21
[2018-09-06 11:33] VITALS: BP 124/64; PULSE 63; RESP 17
[2018-09-06] MEDS: SOD FERRIC GLUC COMPLX 125 MG in SOD CHLORIDE 0.9% 100 ML IVPB SCH (12:39)
[2018-09-06 15:06] VITALS: BP 133/65; PULSE 69; RESP 17
[2018-09-06] MEDS ORDERED: POTASSIUM CHLORIDE (SR) 20 MEQ TAB PO STA (17:28)
--- NOTE | 2018-09-06 17:29 | CONS ---
Assessment/Plan Cardiology NYHA: IV Heart Failure Type: Acute on Chronic Heart Failure Type: Both Assessment/Plan Hospital Course (Demo Recall) Acute decompensated systolic congestive heart failure Cardia myopathy with ejection fraction 25% Mild to moderate coronary artery disease left heart catheterization January 2016 History of ventricular tachycardia, with history of LifeVest Acute kidney injury CKD Hypertension HR stable Cont Coreg Diuretics as tolerated in setting of CKD-being followed by renal Suppl K and Mg Consultation Date/Type/Reason Admit Date/Time Sep 01, 2018 at 19:14 Initial Consult Date 09/02/18 Type of Consult Cardiology Requesting Provider: JAD SHIN NP Date/Time of Note DATE: 09/06/18 TIME: 17:28 24 HR Interval Summary Free Text/Dictation no cp, sob better Exam/Review of Systems Vital Signs Vitals Vital Signs Date Temp Pulse Resp B/P (MAP) Pulse Ox O2 O2 Flow FiO2 Time Delivery Rate 09/06/18 98.2 69 17 133/65 95 15:06 (87) 09/06/18 Nasal 04:08 Cannula 09/05/18 2.0 03:05 09/04/18 27 02:15 Intake and Output 09/05/18 09/05/18 09/06/18 1414:59 22:59 06:59 IntakeIntake Total 1050 ml 300 ml 440 ml OutputOutput Total 200 ml 450 ml 600 ml BalanceBalance 850 ml -150 ml -160 ml Exam Constitutional: alert, oriented Head: normocephalic Respiratory: other (course bs, no wheeze) Cardiovascular: regular rate and rhythm (s1s2) Gastrointestinal: soft, non-tender, bowel sounds Extremities: edema Labs Result Diagram: 09/06/18 0642 09/06/18 0642 Results 24hrs Laboratory Tests Test 09/05/18 20:54 09/06/18 01:33 09/06/18 06:42 09/06/18 08:09 Bedside Glucose 202 123 204 White Blood Count 8.6 Red Blood Count 3.49 L Hemoglobin 8.6 L Hematocrit 28.0 L Mean Corpuscular 80.2 L Volume Mean Corpuscular 24.6 L Hemoglobin Mean Corpuscular 30.7 L Hemoglobin Concent Red Cell 16.2 H Distribution Width Platelet Count 234 Mean Platelet Volume 10.2 Immature 0.300 Granulocytes % Neutrophils % 72.7 Lymphocytes % 8.5 L Monocytes % 14.8 H Eosinophils % 3.1 Basophils % 0.6 Nucleated Red Blood 0.0 Cells % Immature 0.030 Granulocytes # Neutrophils # 6.3 Lymphocytes # 0.7 L Monocytes # 1.3 H Eosinophils # 0.3 Basophils # 0.1 Nucleated Red Blood 0.0 Cells # Sodium Level 137 Potassium Level 3.5 Chloride Level 101 Carbon Dioxide Level 26 Anion Gap 10 Blood Urea Nitrogen 80 H Creatinine 2.99 H Est Glomerular Filtrat Rate mL/min Glucose Level 191 Calcium Level 8.8 Phosphorus Level 4.9 Magnesium Level 1.9 Test 09/06/18 12:14 Bedside Glucose 184 Medications Medications Current Medications IV Flush (NS 3 ml) 3 ml PER PROTOCOL IV ; Start 09/01/18 at 19:30 Ondansetron HCl (Zofran Inj) 4 mg Q6H PRN IV NAUSEA/VOMITING; Start 09/01/18 at 19:30 Acetaminophen (Tylenol Tab) 650 mg Q6H PRN PO .PAIN 1-3 OR TEMP; Start 09/01/18 at 19:30 Acetaminophen/ Hydrocodone Bitart ([place] (5/325)) 1 tab Q6H PRN PO .MOD PAIN 4- 6; Start 09/01/18 at 19:30 Morphine Sulfate (morphine) 2 mg Q4H PRN IV .SEVERE PAIN 7-10; Start 09/01/18 at 19:30 Docusate Sodium (Colace) 100 mg Q12H PRN PO .CONSTIPATION; Start 09/01/18 at 19:30 Magnesium Hydroxide (Milk Of Mag) 30 ml DAILY PRN PO .CONSTIPATION; Start 09/01/18 at 19:30 Lorazepam (Ativan) 0.5 mg Q6H PRN IV ANXIETY; Start 09/01/18 at 19:30 Albuterol/ Ipratropium (Duoneb) 3 ml Q4H RESP THERAPY PRN HHN SHORTNESS OF B REATH; Start 09/01/18 at 19:30 Hydralazine HCl (Apresoline) 10 mg Q6H PRN IV ELEVATED BLOOD PRESSURE; Start 09/01/18 at 19:30 Nitroglycerin (Nitroglycerin (Sl Tab) 0.4 Mg) 1 tab Q5M PRN SL ANGINA; Start 09/01/18 at 19:30 Apixaban (Eliquis) 2.5 mg BID PO Last administered on 09/06/18 08:06; Admin Dose 2.5 MG; Start 09/01/18 at 21:00 Aspirin (Halfprin) 81 mg DAILY PO Last administered on 09/06/18 08:06; Admin Dose 81 MG; Start 09/02/18 at 09:00 Atorvastatin Calcium (Lipitor) 40 mg QHS PO Last administered on 09/05/18 20:49; Admin Dose 40 MG; Start 09/01/18 at 21:00 Bumetanide (Bumex) 1 mg BID DIURETICS PO Last administered on 09/06/18 05:41; Admin Dose 1 MG; Start 09/01/18 at 21:00 Hydralazine HCl (Apresoline) 100 mg BID PO Last administered on 09/06/18 08:07; Admin Dose 100 MG; Start 09/01/18 at 21:00 Isosorbide Mononitrate (Imdur) 30 mg DAILY PO Last administered on 09/06/18 08:07; Admin Dose 30 MG; Start 09/02/18 at 09:00 Thiamine HCl (Vitamin B1) 100 mg DAILY PO Last administered on 09/06/18 08:05; Admin Dose 100 MG; Start 09/02/18 at 09:00 Fish Oil (Fish Oil) 2,000 mg BID PO Last administered on 09/06/18 08:05; Admin Dose 2,000 MG; Start 09/01/18 at 22:00 Diagnostic Test (Pha) (Accu-Chek) 1 ea 02 XX Last administered on 09/06/18 01:50; Admin Dose 1 EA; Start 09/04/18 at 02:00 Insulin Aspart (Novolog Insulin Pen) NOVOLOG *MILD* ALGORITHM WITH MEALS BEDTI ME SC Last administered on 09/06/18 12:23; Admin Dose 2 UNIT; Start 09/03/18 at 11:50 Miscellaneous Information 1 ea NOTE XX ; Start 09/03/18 at 09:30 Glucose (Glutose) 15 gm Q15M PRN PO DECREASED GLUCOSE; Start 09/03/18 at 09:30 Glucose (Glutose) 22.5 gm Q15M PRN PO DECREASED GLUCOSE; Start 09/03/18 at 09:30 Dextrose (D50w Syringe) 25 ml Q15M PRN IV DECREASED GLUCOSE; Start 09/03/18 at 09:30 Dextrose (D50w Syringe) 50 ml Q15M PRN IV DECREASED GLUCOSE; Start 09/03/18 at 09:30 Glucagon (Glucagen) 1 mg Q15M PRN IM DECREASED GLUCOSE; Start 09/03/18 at 09:30 Glucose (Glutose) 15 gm Q15M PRN BUCCAL DECREASED GLUCOSE; Start 09/03/18 at 09:30 Carvedilol (Coreg) 12.5 mg BID PO Last administered on 09/06/18at 08:17; Admin Dose 12.5 MG; Start 09/03/18 at 21:00 Insulin Aspart (Novolog Insulin Pen) 6 unit WITH MEALS SC Last administered on 09/06/18 12:24; Admin Dose 6 UNIT; Start 09/05/18 at 17:55 Insulin Glargine (Lantus) 17 units DAILY@0800 SC Last administered on 09/06/18at 08:21; Admin Dose 17 UNITS; Start 09/06/18 at 08:00 Ferric Sodium Gluconate Complex 125 mg/Sodium Chloride 100 ml @ 100 mls/hr DAILY@1300 IVPB Last administered on 09/06/18at 12:39; Admin Dose 100 MLS/HR; Start 09/06/18 at 13:00; Stop 09/08/18 at 13:59 Agustin Traylor DO Sep 06, 2018 17:29
[2018-09-06] MEDS ORDERED: MAGNESIUM SULFATE 2 GM/50 ML 50 ML IVPB ONE (17:30)
[2018-09-06] MEDS: HYDROCODONE/APAP (5/325) TAB PO PRN (17:44)
[2018-09-06 20:18] VITALS: BP 135/71; PULSE 69; RESP 20
[2018-09-06] MEDS: ATORVASTATIN 40 MG TAB PO SCH (21:06)
[2018-09-06 23:54] VITALS: BP 127/73; PULSE 70; RESP 20
[2018-09-07] MEDS: ACCU-CHEK XX SCH (02:00)
[2018-09-07 04:01] VITALS: BP 140/73; PULSE 69; RESP 18
[2018-09-07] MEDS: BUMETANIDE 1 MG TAB PO SCH ×2 (05:44→16:57)
[2018-09-07 07:18] VITALS: BP 138/70; PULSE 57; RESP 18
[2018-09-07] MEDS: INSULIN ASPART [NOVOLOG] 3 ML PEN SC SCH ×7 (07:47→21:16)
[2018-09-07] MEDS: INSULIN GLARGINE [LANTus] (100 UNITS/ML) SYG SC SCH (07:48)
[2018-09-07] MEDS: FISH OIL 1,000 MG CAP PO SCH ×2 (08:12→21:00)
[2018-09-07] MEDS: THIAMINE 100 MG TAB PO SCH (08:12)
[2018-09-07] MEDS: ISOSORBIDE MONONITRATE(SR)30 MG TAB PO SCH (08:12)
[2018-09-07] MEDS: APIXABAN 5 MG TABLET PO SCH ×2 (08:13→21:01)
[2018-09-07] MEDS: ASPIRIN (EC) 81 MG TAB PO SCH (08:13)
[2018-09-07] MEDS: HYDROCODONE/APAP (5/325) TAB PO PRN (08:21)
--- NOTE | 2018-09-07 08:35 | CONS ---
Consult Date/Type/Reason Admit Date/Time Sep 01, 2018 at 19:14 Initial Consult Date 09/02/18 Requesting Provider: JAD SHIN NP Date/Time of Note DATE: 09/07/18 TIME: 08:33 Subjective 72-year-old gentleman with past medical history of cardiomyopathy, EF 20%, type 1 diabetes, hypertension and dyslipidemia, nonsustained ventricular tachycardia, coronary artery disease, CKD. He presents to the hospital after noticing dyspnea and chest pain. The patient was in this hospital a month ago, seen by Dr. Ruiz. The patient had a similar presentation with a congestive heart f ailure exacerbation. The patient was noted to have a CHF exacerbation again and an x-ray with pleural effusion with hypertension on presentation. The patient was admitted with [id number] congestive heart failure exacerbation, type 1 diabetes, on insulin. Creatinine was noted to be 2.5. The patient has had previous history of CKD. The lowest creatinine on record was at 2.1. Discharged with a creatinine of 2.7. There has been no recent fevers, chills, nausea, vomiting, chest pain, shortness of breath with evidence of effusion. No fevers, chills, nausea, vomiting. The patient denies history of frequent urinary tract infections or kidney stones. Denies nocturia. The patient was described as having CKD presumably from diabetes. overall improved. contiues good uo. on Bumex 1 po bid PHYSICAL EXAMINATION: HEENT: Normocephalic, atraumatic. Pupils equal and reactive to light. Oropharynx has moist mucous membranes. NECK: Supple. HEART: Regular rate and rhythm. LUNGS: clear breath sounds bilaterally. ABDOMEN: Soft, nontender, nondistended. Bowel sounds to auscultation. EXTREMITIES: No clubbing, cyanosis or edema. Objective Vitals Vital Signs Date Temp Pulse Resp B/P (MAP) Pulse Ox O2 O2 Flow FiO2 Time Delivery Rate 09/07/18 98.2 57 18 138/70 99 Nasal 2.0 07:18 (92) Cannula 09/04/18 27 02:15 Intake and Output 09/06/18 09/06/18 09/07/18 1515:00 23:00 07:00 IntakeIntake Total 900 ml 690 ml 100 ml OutputOutput Total 650 ml 400 ml 700 ml BalanceBalance 250 ml 290 ml -600 ml Results/Medications Result Diagram: 09/07/18 0604 09/07/18 0604 Results 24 hrs Laboratory Tests Test 09/06/18 12:14 09/06/18 17:30 09/06/18 21:04 09/07/18 06:04 Bedside Glucose 184 176 105 White Blood Count 8.8 Red Blood Count 3.39 L Hemoglobin 8.3 L Hematocrit 27.0 L Mean Corpuscular 79.6 L Volume Mean Corpuscular 24.5 L Hemoglobin Mean Corpuscular 30.7 L Hemoglobin Concent Red Cell 16.0 H Distribution Width Platelet Count 249 Mean Platelet Volume 10.6 H Immature 0.500 H Granulocytes % Neutrophils % 70.9 Lymphocytes % 7.6 L Monocytes % 17.8 H Eosinophils % 2.4 Basophils % 0.8 Nucleated Red Blood 0.0 Cells % Immature 0.040 H Granulocytes # Neutrophils # 6.2 Lymphocytes # 0.7 L Monocytes # 1.6 H Eosinophils # 0.2 Basophils # 0.1 Nucleated Red Blood 0.0 Cells # Sodium Level 138 Potassium Level 3.8 Chloride Level 101 Carbon Dioxide Level 27 Anion Gap 10 Blood Urea Nitrogen 80 H Creatinine 2.73 H Est Glomerular Filtrat Rate mL/min Glucose Level 103 # Calcium Level 8.9 Phosphorus Level 4.9 Magnesium Level 2.3 Test 09/07/18 07:46 Bedside Glucose 102 Home Meds Active Scripts Thiamine* (Thiamine*) 100 Mg Tablet, 100 MG PO DAILY for 30 Days, #30 TAB Prov:CHUY HORTON MD 04/01/18 Reported Medications Bumetanide* (Bumetanide*) 1 Mg Tablet, 1 MG PO BID, TAB 09/01/18 Liraglutide (Victoza 3-Dnonie) 0.6 Mg/0.1 Ml Pen.injctr, 1.8 MG SQ BID, SYR 07/30/18 [place]-3 Acid Ethyl Esters (Lovaza) 1 Gm Capsule, 2 GM PO BID, CAP 07/30/18 Apixaban* (Eliquis*) 2.5 Mg Tablet, 2.5 MG PO BID, TAB 06/07/18 Carvedilol* (Carvedilol*) 6.25 Mg Tablet, 6.25 MG PO BID, #60 TAB 06/07/18 Hydralazine Hcl* (Hydralazine Hcl*) 100 Mg Tablet, 100 MG PO BID, #90 TAB 06/07/18 Isosorbide Mononitrate* (Isosorbide Mononitrate*) 30 Mg Tab.er.24h, 30 MG PO DAILY, TAB 03/20/18 Aspirin* (Aspirin* EC) 81 Mg Tablet.dr, 81 MG PO DAILY, TAB 03/04/18 Insulin Glargine,Hum.rec.anlog (Topatric Solostar) 300 Unit/1 Ml Insuln.pen, 42 UNIT SQ QPM, EA 03/04/18 Atorvastatin* (Atorvastatin*) 40 Mg Tablet, 40 MG PO QHS, #30 TAB 03/04/18 Discontinued Scripts Bumetanide* (Bumetanide*) 1 Mg Tablet, 1 MG PO BID DIURETICS, #60 TAB 3 Refills Prov:SOFI RENTERIA S. 08/03/18 Medications Current Medications IV Flush (NS 3 ml) 3 ml PER PROTOCOL IV ; Start 09/01/18 at 19:30 Ondansetron HCl (Zofran Inj) 4 mg Q6H PRN IV NAUSEA/VOMITING; Start 09/01/18 at 19:30 Acetaminophen (Tylenol Tab) 650 mg Q6H PRN PO .PAIN 1-3 OR TEMP; Start 09/01/18 at 19:30 Acetaminophen/ Hydrocodone Bitart ([place] (5/325)) 1 tab Q6H PRN PO .MOD PAIN 4- 6 Last administered on 09/07/18at 08:21; Admin Dose 1 TAB; Start 09/01/18 at 19:30 Morphine Sulfate (morphine) 2 mg Q4H PRN IV .SEVERE PAIN 7-10; Start 09/01/18 at 19:30 Docusate Sodium (Colace) 100 mg Q12H PRN PO .CONSTIPATION; Start 09/01/18 at 19:30 Magnesium Hydroxide (Milk Of Mag) 30 ml DAILY PRN PO .CONSTIPATION; Start 09/01/18 at 19:30 Lorazepam (Ativan) 0.5 mg Q6H PRN IV ANXIETY; Start 09/01/18 at 19:30 Albuterol/ Ipratropium (Duoneb) 3 ml Q4H RESP THERAPY PRN HHN SHORTNESS OF BREATH; Start 09/01/18 at 19:30 Hydralazine HCl (Apresoline) 10 mg Q6H PRN IV ELEVATED BLOOD PRESSURE; Start 09/01/18 at 19:30 Nitroglycerin (Nitroglycerin (Sl Tab) 0.4 Mg) 1 tab Q5M PRN SL ANGINA; Start 09/01/18 at 19:30 Apixaban (Eliquis) 2.5 mg BID PO Last administered on 09/07/18 08:13; Admin Dose 2.5 MG; Start 09/01/18 at 21:00 Aspirin (Halfprin) 81 mg DAILY PO Last administered on 09/07/18 08:13; Admin Dose 81 MG; Start 09/02/18 at 09:00 Atorvastatin Calcium (Lipitor) 40 mg QHS PO Last administered on 09/06/18 21:06; Admin Dose 40 MG; Start 09/01/18 at 21:00 Bumetanide (Bumex) 1 mg BID DIURETICS PO Last administered on 09/07/18 05:44; Admin Dose 1 MG; Start 09/01/18 at 21:00 Hydralazine HCl (Apresoline) 100 mg BID PO Last administered on 09/07/18 08:12; Admin Dose 100 MG; Start 09/01/18 at 21:00 Isosorbide Mononitrate (Imdur) 30 mg DAILY PO Last administered on 09/07/18 08:12; Admin Dose 30 MG; Start 09/02/18 at 09:00 Thiamine HCl (Vitamin B1) 100 mg DAILY PO Last administered on 09/07/18 08:12; Admin Dose 100 MG; Start 09/02/18 at 09:00 Fish Oil (Fish Oil) 2,000 mg BID PO Last administered on 09/07/18 08:12; Admin Dose 2,000 MG; Start 09/01/18 at 22:00 Diagnostic Test (Pha) (Accu-Chek) 1 ea 02 XX Last administered on 09/06/18at 01:50; Admin Dose 1 EA; Start 09/04/18 at 02:00 Insulin Aspart (Novolog Insulin Pen) NOVOLOG *MILD* ALGORITHM WITH MEALS BEDTIME SC Last administered on 09/06/18 18:00; Admin Dose 1 UNIT; Start 09/03/18 at 11:50 Miscellaneous Information 1 ea NOTE XX ; Start 09/03/18 at 09:30 Glucose (Glutose) 15 gm Q15M PRN PO DECREASED GLUCOSE; Start 09/03/18 at 09:30 Glucose (Glutose) 22.5 gm Q15M PRN PO DECREASED GLUCOSE; Start 09/03/18 at 09:30 Dextrose (D50w Syringe) 25 ml Q15M PRN IV DECREASED GLUCOSE; Start 09/03/18 at 09:30 Dextrose (D50w Syringe) 50 ml Q15M PRN IV DECREASED GLUCOSE; Start 09/03/18 at 09:30 Glucagon (Glucagen) 1 mg Q15M PRN IM DECREASED GLUCOSE; Start 09/03/18 at 09:30 Glucose (Glutose) 15 gm Q15M PRN BUCCAL DECREASED GLUCOSE; Start 09/03/18 at 09:30 Carvedilol (Coreg) 12.5 mg BID PO Last administered on 09/07/18at 08:13; Admin Dose 12.5 MG; Start 09/03/18 at 21:00 Insulin Aspart (Novolog Insulin Pen) 6 unit WITH MEALS SC Last administered on 09/07/18at 07:48; Admin Dose 6 UNIT; Start 09/05/18 at 17:55 Insulin Glargine (Lantus) 17 units DAILY@0800 SC Last administered on 09/07/18at 07:48; Admin Dose 17 UNITS; Start 09/06/18 at 08:00 Ferric Sodium Gluconate Complex 125 mg/Sodium Chloride 100 ml @ 100 mls/hr DAILY@1300 IVPB Last administered on 09/06/18at 12:39; Admin Dose 100 MLS/HR; Start 09/06/18 at 13:00; Stop 09/08/18 at 13:59 Assessment/Plan Hospital Course (Demo Recall) 1. Acute kidney injury, nonoliguric on underlying CKD4. Labs today are in line with previous admissions - given previous history of cardiorenal syndrome, he may need to tolerate some azotemia to achieve euvolemia. Watch labs daily. slowly creeping up. -Quantify proteinuria. Imaging of kidney functions worsens. All medications are dosed appropriately continue current diuretic regimen and adjust accordingly. 2. Acute decompensated heart failure and chronic kidney disease. Continue current medical management. - Continue diuretic regimen bumex 1mg po bid. coadministered with KCL. 3. Anemia. Hemoglobin has decreased since previous admission. likely component of anemia of chronic kidney disease, likely benefit from [employer]. Iron saturation here was low. There may be a component of blood loss anemia. Check stool for occult blood. negative x1. started iv fe. 4. Type 1 diabetes, insulin adjust as needed. cont Victoza. 5. Dyslipidemia. Continue statin. 6. History of coronary artery disease, cardiac optimization. 7. Hypertension, controlled at present, may benefit from LOLY inhibitor once kidney function is known to be stable. COLE BLAKE MD Sep 07, 2018 08:35
[2018-09-07 11:34] VITALS: BP 121/59; PULSE 54; RESP 18
--- NOTE | 2018-09-07 11:43 | PN ---
Date/Time of Note Date/Time of Note DATE: 09/07/18 TIME: 11:42 Assessment/Plan VTE Prophylaxis Risk score (from Ns)>0 risk: 3 SCD applied (from Ns): No SCD contraindicated: other Pharmacological prophylaxis: apixaban Lines/Catheters IV Catheter Type [facility]from [facility] [place] Assessment/Plan Hospital Course SUBJECTIVE: Denies any chest pain. Complains of dyspnea. OBJECTIVE: Physical Exam General: Obese 72 year-old male lying in bed in mild respiratory distress. HEENT: Normocephalic, atraumatic. Eyes: Anicteric sclerae, conjunctivae clear. ENT: Nasal septum midline, oral mucosa moist. Neck supple. JVD noticed. Respiratory: Bilaterally diminished breath sounds. Bilateral rales at the bases. Cardiovascular: S1, S2 heard. Regular rate and rhythm. Abdomen: Soft, nontender, and nondistended. Bowel sounds positive in all 4 quadrants. Genitourinary: Deferred. Extremities: No cyanosis, no clubbing. Trace B/L pedal edema. Peripheral pulses palpable. Neurologic: Cranial nerves II through XII grossly intact. The patient is awake, alert, and oriented. Skin: Normal skin turgor. No skin rashes Labs & Vitals per chart ASSESSMENT & PLAN This is a 72-year-old male with past medical history of essential hypertension, CAD status post coronary artery stenting, type 2 diabetes mellitus, cardiomyopathy (fitted with LifeVest on 04/03/2018), sustained VT (on 03/22/2018), benign prostatic hypertrophy, gout, and chronic kidney disease who came to the emergency room with chief complaint of chest pain and dyspnea. 1. Chest pain. ACS ruled out. Being followed by cardiology. 2. Congestive heart failure exacerbation. Acute on chronic systolic dysfunction. Continue diuresis while carefully monitoring renal function. 3. History of sustained VT on 03/22/2018. Status post LifeVest placement in March 2018. Currently has no LifeVest in place. 4. Cardiomyopathy. Ejection fraction of 30%. Continue beta-blockers and nitrates. No ACEI/ARB because of CKD stage IV. 5. Hypertension. Continue antihypertensives. 6. Type 2 diabetes mellitus. The patient will be continued on sliding scale insulin along with pre-meal insulin and basal insulin. Latest hemoglobin A1c 9.7. 7. CAD. Status post coronary artery stenting. The patient will be continued on antiplatelet therapy. 8. Chronic kidney disease. Nephrotoxic drugs will be used with caution. The patient's BUN and creatinine will be monitored closely. Nephrology follow up. 9. Dyslipidemia. Continue statins and fish oil. 10. Fluids, electrolytes, and nutrition. Carbohydrate controlled diet. 11. DVT prophylaxis. Factor Xa inhibitors. 12. Plan. Continue diuresis while carefully monitoring renal function. Repeat CXR. Await clinical improvement before discharging the patient. The patient was seen in collaboration with Dr. Allen. Result Diagram: 09/07/18 0604 09/07/18 0604 Results 24hrs Laboratory Tests Test 09/06/18 12:14 09/06/18 17:30 09/06/18 21:04 09/07/18 06:04 Bedside Glucose 184 176 105 White Blood Count 8.8 Red Blood Count 3.39 L Hemoglobin 8.3 L Hematocrit 27.0 L Mean Corpuscular 79.6 L Volume Mean Corpuscular 24.5 L Hemoglobin Mean Corpuscular 30.7 L Hemoglobin Concent Red Cell 16.0 H Distribution Width Platelet Count 249 Mean Platelet Volume 10.6 H Immature 0.500 H Granulocytes % Neutrophils % 70.9 Lymphocytes % 7.6 L Monocytes % 17.8 H Eosinophils % 2.4 Basophils % 0.8 Nucleated Red Blood 0.0 Cells % Immature 0.040 H Granulocytes # Neutrophils # 6.2 Lymphocytes # 0.7 L Monocytes # 1.6 H Eosinophils # 0.2 Basophils # 0.1 Nucleated Red Blood 0.0 Cells # Sodium Level 138 Potassium Level 3.8 Chloride Level 101 Carbon Dioxide Level 27 Anion Gap 10 Blood Urea Nitrogen 80 H Creatinine 2.73 H Est Glomerular Filtrat Rate mL/min Glucose Level 103 # Calcium Level 8.9 Phosphorus Level 4.9 Magnesium Level 2.3 Test 09/07/18 07:46 Bedside Glucose 102 Exam/Review of Systems Exam Vitals Vital Signs Date Temp Pulse Resp B/P (MAP) Pulse Ox O2 O2 Flow FiO2 Time Delivery Rate 09/07/18 98.2 57 18 138/70 99 Nasal 2.0 07:18 (92) Cannula 09/04/18 27 02:15 Intake and Output 09/06/18 09/06/18 09/07/18 1515:00 23:00 07:00 IntakeIntake Total 900 ml 690 ml 100 ml OutputOutput Total 650 ml 400 ml 700 ml BalanceBalance 250 ml 290 ml -600 ml Results Results 24hrs Laboratory Tests Test 09/06/18 12:14 09/06/18 17:30 09/06/18 21:04 09/07/18 06:04 Bedside Glucose 184 176 105 White Blood Count 8.8 Red Blood Count 3.39 L Hemoglobin 8.3 L Hematocrit 27.0 L Mean Corpuscular 79.6 L Volume Mean Corpuscular 24.5 L Hemoglobin Mean Corpuscular 30.7 L Hemoglobin Concent Red Cell 16.0 H Distribution Width Platelet Count 249 Mean Platelet Volume 10.6 H Immature 0.500 H Granulocytes % Neutrophils % 70.9 Lymphocytes % 7.6 L Monocytes % 17.8 H Eosinophils % 2.4 Basophils % 0.8 Nucleated Red Blood 0.0 Cells % Immature 0.040 H Granulocytes # Neutrophils # 6.2 Lymphocytes # 0.7 L Monocytes # 1.6 H Eosinophils # 0.2 Basophils # 0.1 Nucleated Red Blood 0.0 Cells # Sodium Level 138 Potassium Level 3.8 Chloride Level 101 Carbon Dioxide Level 27 Anion Gap 10 Blood Urea Nitrogen 80 H Creatinine 2.73 H Est Glomerular Filtrat Rate mL/min Glucose Level 103 # Calcium Level 8.9 Phosphorus Level 4.9 Magnesium Level 2.3 Test 09/07/18 07:46 Bedside Glucose 102 Medications Medication Current Medications IV Flush (NS 3 ml) 3 ml PER PROTOCOL IV ; Start 09/01/18 at 19:30 Ondansetron HCl (Zofran Inj) 4 mg Q6H PRN IV NAUSEA/VOMITING; Start 09/01/18 at 19:30 Acetaminophen (Tylenol Tab) 650 mg Q6H PRN PO .PAIN 1-3 OR TEMP; Start 09/01/18 at 19:30 Acetaminophen/ Hydrocodone Bitart ([place] (5/325)) 1 tab Q6H PRN PO .MOD PAIN 4- 6 Last administered on 09/07/18at 08:21; Admin Dose 1 TAB; Start 09/01/18 at 19:30 Morphine Sulfate (morphine) 2 mg Q4H PRN IV .SEVERE PAIN 7-10; Start 09/01/18 at 19:30 Docusate Sodium (Colace) 100 mg Q12H PRN PO .CONSTIPATION; Start 09/01/18 at 19:30 Magnesium Hydroxide (Milk Of Mag) 30 ml DAILY PRN PO .CONSTIPATION; Start 09/01/18 at 19:30 Lorazepam (Ativan) 0.5 mg Q6H PRN IV ANXIETY; Start 09/01/18 at 19:30 Albuterol/ Ipratropium (Duoneb) 3 ml Q4H RESP THERAPY PRN HHN SHORTNESS OF BREATH; Start 09/01/18 at 19:30 Hydralazine HCl (Apresoline) 10 mg Q6H PRN IV ELEVATED BLOOD PRESSURE; Start 09/01/18 at 19:30 Nitroglycerin (Nitroglycerin (Sl Tab) 0.4 Mg) 1 tab Q5M PRN SL ANGINA; Start 09/01/18 at 19:30 Apixaban (Eliquis) 2.5 mg BID PO Last administered on 09/07/18 08:13; Admin Dose 2.5 MG; Start 09/01/18 at 21:00 Aspirin (Halfprin) 81 mg DAILY PO Last administered on 09/07/18at 08:13; Admin Dose 81 MG; Start 09/02/18 at 09:00 Atorvastatin Calcium (Lipitor) 40 mg QHS PO Last administered on 09/06/18 21:06; Admin Dose 40 MG; Start 09/01/18 at 21:00 Bumetanide (Bumex) 1 mg BID DIURETICS PO Last administered on 09/07/18at 05:44; Admin Dose 1 MG; Start 09/01/18 at 21:00 Hydralazine HCl (Apresoline) 100 mg BID PO Last administered on 09/07/18 08:12; Admin Dose 100 MG; Start 09/01/18 at 21:00 Isosorbide Mononitrate (Imdur) 30 mg DAILY PO Last administered on 09/07/18 08:12; Admin Dose 30 MG; Start 09/02/18 at 09:00 Thiamine HCl (Vitamin B1) 100 mg DAILY PO Last administered on 09/07/18 08:12; Admin Dose 100 MG; Start 09/02/18 at 09:00 Fish Oil (Fish Oil) 2,000 mg BID PO Last administered on 09/07/18at 08:12; Admin Dose 2,000 MG; Start 09/01/18 at 22:00 Diagnostic Test (Pha) (Accu-Chek) 1 ea 02 XX Last administered on 09/06/18at 01:50; Admin Dose 1 EA; Start 09/04/18 at 02:00 Insulin Aspart (Novolog Insulin Pen) NOVOLOG *MILD* ALGORITHM WITH MEALS BEDTIME SC Last administered on 09/06/18at 18:00; Admin Dose 1 UNIT; Start 09/03/18 at 11:50 Miscellaneous Information 1 ea NOTE XX ; Start 09/03/18 at 09:30 Glucose (Glutose) 15 gm Q15M PRN PO DECREASED GLUCOSE; Start 09/03/18 at 09:30 Glucose (Glutose) 22.5 gm Q15M PRN PO DECREASED GLUCOSE; Start 09/03/18 at 09:30 Dextrose (D50w Syringe) 25 ml Q15M PRN IV DECREASED GLUCOSE; Start 09/03/18 at 09:30 Dextrose (D50w Syringe) 50 ml Q15M PRN IV DECREASED GLUCOSE; Start 09/03/18 at 09:30 Glucagon (Glucagen) 1 mg Q15M PRN IM DECREASED GLUCOSE; Start 09/03/18 at 09:30 Glucose (Glutose) 15 gm Q15M PRN BUCCAL DECREASED GLUCOSE; Start 09/03/18 at 09 :30 Carvedilol (Coreg) 12.5 mg BID PO Last administered on 09/07/18at 08:13; Admin Dose 12.5 MG; Start 09/03/18 at 21:00 Insulin Aspart (Novolog Insulin Pen) 6 unit WITH MEALS SC Last administered on 09/07/18at 07:48; Admin Dose 6 UNIT; Start 09/05/18 at 17:55 Insulin Glargine (Lantus) 17 units DAILY@0800 SC Last administered on 09/07/18at 07:48; Admin Dose 17 UNITS; Start 09/06/18 at 08:00 Ferric Sodium Gluconate Complex 125 mg/Sodium Chloride 100 ml @ 100 mls/hr DAILY@1300 IVPB Last administered on 09/06/18at 12:39; Admin Dose 100 MLS/HR; Start 09/06/18 at 13:00; Stop 09/08/18 at 13:59 DALLIN ADAMS NP Sep 07, 2018 11:43
[2018-09-07] MEDS ORDERED: BUMETANIDE 1 MG INJ IV ONE (12:00)
[2018-09-07] MEDS: SOD FERRIC GLUC COMPLX 125 MG in SOD CHLORIDE 0.9% 100 ML IVPB SCH (13:46)
[2018-09-07 15:29] VITALS: BP 109/61; PULSE 56; RESP 18
--- NOTE | 2018-09-07 16:26 | CONS ---
Assessment/Plan Cardiology NYHA: IV Heart Failure Type: Acute on Chronic Heart Failure Type: Both Assessment/Plan Hospital Course (Demo Recall) Acute decompensated systolic congestive heart failure Cardia myopathy with ejection fraction 25% Mild to moderate coronary artery disease left heart catheterization January 2016 History of ventricular tachycardia, with history of LifeVest Acute kidney injury CKD Hypertension HR stable Cont Coreg Diuretics as tolerated in setting of CKD-being followed by renal Would DC aspirin given anemia Consultation Date/Type/Reason Admit Date/Time Sep 01, 2018 at 19:14 Initial Consult Date 09/02/18 Type of Consult Cardiology Requesting Provider: JAD SHIN NP Date/Time of Note DATE: 09/07/18 TIME: 16:24 24 HR Interval Summary Free Text/Dictation No shortness of breath, complains of nausea Exam/Review of Systems Vital Signs Vitals Vital Signs Date Temp Pulse Resp B/P (MAP) Pulse Ox O2 O2 Flow FiO2 Time Delivery Rate 09/07/18 98.7 56 18 109/61 98 Nasal 2.0 15:29 (77) Cannula 09/04/18 27 02:15 Intake and Output 09/06/18 09/06/18 09/07/18 1515:00 23:00 07:00 IntakeIntake Total 900 ml 690 ml 100 ml OutputOutput Total 650 ml 400 ml 700 ml BalanceBalance 250 ml 290 ml -600 ml Exam Constitutional: alert, oriented Head: normocephalic Respiratory: other (Coarse breath sounds bilaterally, no wheezing) Cardiovascular: regular rate and rhythm (S1-S2 heard) Gastrointestinal: soft, non-tender, bowel sounds Extremities: edema Labs Result Diagram: 09/07/18 0604 09/07/18 0604 Results 24hrs Laboratory Tests Test 09/06/18 17:30 09/06/18 21:04 09/07/18 06:04 09/07/18 07:46 Bedside Glucose 176 105 102 White Blood Count 8.8 Red Blood Count 3.39 L Hemoglobin 8.3 L Hematocrit 27.0 L Mean Corpuscular 79.6 L Volume Mean Corpuscular 24.5 L Hemoglobin Mean Corpuscular 30.7 L Hemoglobin Concent Red Cell 16.0 H Distribution Width Platelet Count 249 Mean Platelet Volume 10.6 H Immature 0.500 H Granulocytes % Neutrophils % 70.9 Lymphocytes % 7.6 L Monocytes % 17.8 H Eosinophils % 2.4 Basophils % 0.8 Nucleated Red Blood 0.0 Cells % Immature 0.040 H Granulocytes # Neutrophils # 6.2 Lymphocytes # 0.7 L Monocytes # 1.6 H Eosinophils # 0.2 Basophils # 0.1 Nucleated Red Blood 0.0 Cells # Sodium Level 138 Potassium Level 3.8 Chloride Level 101 Carbon Dioxide Level 27 Anion Gap 10 Blood Urea Nitrogen 80 H Creatinine 2.73 H Est Glomerular Filtrat Rate mL/min Glucose Level 103 # Calcium Level 8.9 Phosphorus Level 4.9 Magnesium Level 2.3 Test 09/07/18 11:45 Bedside Glucose 133 Medications Medications Current Medications IV Flush (NS 3 ml) 3 ml PER PROTOCOL IV ; Start 09/01/18 at 19:30 Ondansetron HCl (Zofran Inj) 4 mg Q6H PRN IV NAUSEA/VOMITING Last administered on 09/07/18at 12:10; Admin Dose 4 MG; Start 09/01/18 at 19:30 Acetaminophen (Tylenol Tab) 650 mg Q6H PRN PO .PAIN 1-3 OR TEMP; Start 09/01/18 at 19:30 Acetaminophen/ Hydrocodone Bitart ([place] (5/325)) 1 tab Q6H PRN PO .MOD PAIN 4- 6 Last administered on 09/07/18at 08:21; Admin Dose 1 TAB; Start 09/01/18 at 19:30 Morphine Sulfate (morphine) 2 mg Q4H PRN IV .SEVERE PAIN 7-10; Start 09/01/18 at 19:30 Docusate Sodium (Colace) 100 mg Q12H PRN PO .CONSTIPATION; Start 09/01/18 at 19:30 Magnesium Hydroxide (Milk Of Mag) 30 ml DAILY PRN PO .CONSTIPATION; Start 09/01/18 at 19:30 Lorazepam (Ativan) 0.5 mg Q6H PRN IV ANXIETY; Start 09/01/18 at 19:30 Albuterol/ Ipratropium (Duoneb) 3 ml Q4H RESP THERAPY PRN HHN SHORTNESS OF BREATH; Start 09/01/18 at 19:30 Hydralazine HCl (Apresoline) 10 mg Q6H PRN IV ELEVATED BLOOD PRESSURE; Start 09/01/18 at 19:30 Nitroglycerin (Nitroglycerin (Sl Tab) 0.4 Mg) 1 tab Q5M PRN SL ANGINA; Start 09/01/18 at 19:30 Apixaban (Eliquis) 2.5 mg BID PO Last administered on 09/07/18 08:13; Admin Dose 2.5 MG; Start 09/01/18 at 21:00 Aspirin (Halfprin) 81 mg DAILY PO Last administered on 09/07/18 08:13; Admin Dose 81 MG; Start 09/02/18 at 09:00 Atorvastatin Calcium (Lipitor) 40 mg QHS PO Last administered on 09/06/18 21:06; Admin Dose 40 MG; Start 09/01/18 at 21:00 Bumetanide (Bumex) 1 mg BID DIURETICS PO Last administered on 09/07/18 05:44; Admin Dose 1 MG; Start 09/01/18 at 21:00 Hydralazine HCl (Apresoline) 100 mg BID PO Last administered on 09/07/18 08:12; Admin Dose 100 MG; Start 09/01/18 at 21:00 Isosorbide Mononitrate (Imdur) 30 mg DAILY PO Last administered on 09/07/18 08:12; Admin Dose 30 MG; Start 09/02/18 at 09:00 Thiamine HCl (Vitamin B1) 100 mg DAILY PO Last administered on 09/07/18 08:12; Admin Dose 100 MG; Start 09/02/18 at 09:00 Fish Oil (Fish Oil) 2,000 mg BID PO Last administered on 09/07/18 08:12; Admin Dose 2,000 MG; Start 09/01/18 at 22:00 Diagnostic Test (Pha) (Accu-Chek) 1 ea 02 XX Last administered on 09/06/18at 01:50; Admin Dose 1 EA; Start 09/04/18 at 02:00 Insulin Aspart (Novolog Insulin Pen) NOVOLOG *MILD* ALGORITHM WITH MEALS BEDTIME SC Last administered on 09/06/18 18:00; Admin Dose 1 UNIT; Start 09/03/18 at 11:50 Miscellaneous Information 1 ea NOTE XX ; Start 09/03/18 at 09:30 Glucose (Glutose) 15 gm Q15M PRN PO DECREASED GLUCOSE; Start 09/03/18 at 09:30 Glucose (Glutose) 22.5 gm Q15M PRN PO DECREASED GLUCOSE; Start 09/03/18 at 09:30 Dextrose (D50w Syringe) 25 ml Q15M PRN IV DECREASED GLUCOSE; Start 09/03/18 at 09:30 Dextrose (D50w Syringe) 50 ml Q15M PRN IV DECREASED GLUCOSE; Start 09/03/18 at 09:30 Glucagon (Glucagen) 1 mg Q15M PRN IM DECREASED GLUCOSE; Start 09/03/18 at 09:30 Glucose (Glutose) 15 gm Q15M PRN BUCCAL DECREASED GLUCOSE; Start 09/03/18 at 09:30 Carvedilol (Coreg) 12.5 mg BID PO Last administered on 09/07/18at 08:13; Admin Dose 12.5 MG; Start 09/03/18 at 21:00 Insulin Aspart (Novolog Insulin Pen) 6 unit WITH MEALS SC Last administered on 09/07/18at 12:07; Admin Dose 6 UNIT; Start 09/05/18 at 17:55 Insulin Glargine (Lantus) 17 units DAILY@0800 SC Last administered on 09/07/18at 07:48; Admin Dose 17 UNITS; Start 09/06/18 at 08:00 Ferric Sodium Gluconate Complex 125 mg/Sodium Chloride 100 ml @ 100 mls/hr DAILY@1300 IVPB Last administered on 09/07/18at 13:46; Admin Dose 100 MLS/HR; Start 09/06/18 at 13:00; Stop 09/08/18 at 13:59 Agustin Traylor DO Sep 07, 2018 16:26
[2018-09-07 19:44] VITALS: BP 133/59; PULSE 68; RESP 19
[2018-09-07] MEDS: ATORVASTATIN 40 MG TAB PO SCH (21:00)
[2018-09-07] MEDS ORDERED: INSULIN ASPART [NOVOLOG] 3 ML PEN SC ONE ×2 (21:30)
[2018-09-07] MEDS ORDERED: ACCU-CHEK XX ONE (23:30)
[2018-09-08 00:02] VITALS: BP 134/63; PULSE 62; RESP 19
[2018-09-08] MEDS ORDERED: INSULIN ASPART [NOVOLOG] 3 ML PEN SC ONE (00:30)
[2018-09-08] MEDS: ACCU-CHEK XX SCH (02:16)
[2018-09-08] MEDS ORDERED: ACCU-CHEK XX ONE (02:30)
[2018-09-08 04:12] VITALS: BP 109/58; PULSE 67; RESP 19
[2018-09-08] MEDS: BUMETANIDE 1 MG TAB PO SCH (06:20)
[2018-09-08 07:49] VITALS: BP 108/55; PULSE 62; RESP 20
[2018-09-08] MEDS: INSULIN ASPART [NOVOLOG] 3 ML PEN SC SCH ×7 (07:55→21:00)
[2018-09-08] MEDS ORDERED: POTASSIUM CHLORIDE (SR) 20 MEQ TAB PO STA (08:05)
--- NOTE | 2018-09-08 08:05 | CONS ---
Consult Date/Type/Reason Admit Date/Time Sep 01, 2018 at 19:14 Initial Consult Date 09/02/18 Requesting Provider: JAD SHIN NP Date/Time of Note DATE: 09/08/18 TIME: 08:03 Subjective 72-year-old gentleman with past medical history of cardiomyopathy, EF 20%, type 1 diabetes, hypertension and dyslipidemia, nonsustained ventricular tachycardia, coronary artery disease, CKD. He presents to the hospital after noticing dyspnea and chest pain. The patient was in this hospital a month ago, seen by Dr. Ruiz. The patient had a similar presentation with a congestive heart f ailure exacerbation. The patient was noted to have a CHF exacerbation again and an x-ray with pleural effusion with hypertension on presentation. The patient was admitted with [id number] congestive heart failure exacerbation, type 1 diabetes, on insulin. Creatinine was noted to be 2.5. The patient has had previous history of CKD. The lowest creatinine on record was at 2.1. Discharged with a creatinine of 2.7. There has been no recent fevers, chills, nausea, vomiting, chest pain, shortness of breath with evidence of effusion. No fevers, chills, nausea, vomiting. The patient denies history of frequent urinary tract infections or kidney stones. Denies nocturia. The patient was described as having CKD presumably from diabetes. contiues good uo. on Bumex 1 po bid PHYSICAL EXAMINATION: HEENT: Normocephalic, atraumatic. Pupils equal and reactive to light. Oropharynx has moist mucous membranes. NECK: Supple. HEART: Regular rate and rhythm. LUNGS: clear breath sounds bilaterally. ABDOMEN: Soft, nontender, nondistended. Bowel sounds to auscultation. EXTREMITIES: No clubbing, cyanosis or edema. Objective Vitals Vital Signs Date Temp Pulse Resp B/P (MAP) Pulse Ox O2 O2 Flow FiO2 Time Delivery Rate 09/08/18 97.7 62 20 108/55 97 Room Air 07:49 (72) 09/07/18 2.0 15:29 Intake and Output 09/07/18 09/07/18 09/08/18 1515:00 23:00 07:00 IntakeIntake Total 300 ml 520 ml 400 ml OutputOutput Total 200 ml 500 ml 900 ml BalanceBalance 100 ml 20 ml -500 ml Results/Medications Result Diagram: 09/08/18 0543 09/08/18 0543 Results 24 hrs Laboratory Tests Test 09/07/18 11:45 09/07/18 16:40 09/07/18 20:53 09/07/18 23:59 Bedside Glucose 133 159 343 H 318 H Test 09/08/18 02:14 09/08/18 05:43 Bedside Glucose 216 White Blood Count 8.1 Red Blood Count 3.27 L Hemoglobin 8.1 L Hematocrit 26.2 L Mean Corpuscular 80.1 L Volume Mean Corpuscular 24.8 L Hemoglobin Mean Corpuscular 30.9 L Hemoglobin Concent Red Cell 16.1 H Distribution Width Platelet Count 232 Mean Platelet Volume 10.5 H Immature 0.200 Granulocytes % Neutrophils % 70.6 Lymphocytes % 7.4 L Monocytes % 18.1 H Eosinophils % 3.1 Basophils % 0.6 Nucleated Red Blood 0.0 Cells % Immature 0.020 Granulocytes # Neutrophils # 5.8 Lymphocytes # 0.6 L Monocytes # 1.5 H Eosinophils # 0.3 Basophils # 0.1 Nucleated Red Blood 0.0 Cells # Sodium Level 138 Potassium Level 3.4 L Chloride Level 101 Carbon Dioxide Level 28 Anion Gap 9 Blood Urea Nitrogen 88 H Creatinine 3.08 H Est Glomerular Filtrat Rate mL/min Glucose Level 94 Calcium Level 8.7 Phosphorus Level 6.0 H Magnesium Level 2.6 H Home Meds Active Scripts Thiamine* (Thiamine*) 100 Mg Tablet, 100 MG PO DAILY for 30 Days, #30 TAB Prov:CHUY HORTON MD 04/01/18 Reported Medications Bumetanide* (Bumetanide*) 1 Mg Tablet, 1 MG PO BID, TAB 09/01/18 Liraglutide (Victoza 3-Donnie) 0.6 Mg/0.1 Ml Pen.injctr, 1.8 MG SQ BID, SYR 07/30/18 [place]-3 Acid Ethyl Esters (Lovaza) 1 Gm Capsule, 2 GM PO BID, CAP 07/30/18 Apixaban* (Eliquis*) 2.5 Mg Tablet, 2.5 MG PO BID, TAB 06/07/18 Carvedilol* (Carvedilol*) 6.25 Mg Tablet, 6.25 MG PO BID, #60 TAB 06/07/18 Hydralazine Hcl* (Hydralazine Hcl*) 100 Mg Tablet, 100 MG PO BID, #90 TAB 06/07/18 Isosorbide Mononitrate* (Isosorbide Mononitrate*) 30 Mg Tab.er.24h, 30 MG PO DAILY, TAB 03/20/18 Aspirin* (Aspirin* EC) 81 Mg Tablet.dr, 81 MG PO DAILY, TAB 03/04/18 Insulin Glargine,Hum.rec.anlog (Chhaya Boswell) 300 Unit/1 Ml Insuln.pen, 42 UNIT SQ QPM, EA 03/04/18 Atorvastatin* (Atorvastatin*) 40 Mg Tablet, 40 MG PO QHS, #30 TAB 03/04/18 Discontinued Scripts Bumetanide* (Bumetanide*) 1 Mg Tablet, 1 MG PO BID DIURETICS, #60 TAB 3 Refills Prov:RASUYAPA,SOFI S. 08/03/18 Medications Current Medications IV Flush (NS 3 ml) 3 ml PER PROTOCOL IV ; Start 09/01/18 at 19:30 Ondansetron HCl (Zofran Inj) 4 mg Q6H PRN IV NAUSEA/VOMITING Last administered on 09/07/18at 12:10; Admin Dose 4 MG; Start 09/01/18 at 19:30 Acetaminophen (Tylenol Tab) 650 mg Q6H PRN PO .PAIN 1-3 OR TEMP; Start 09/01/18 at 19:30 Acetaminophen/ Hydrocodone Bitart ([place] (5/325)) 1 tab Q6H PRN PO .MOD PAIN 4- 6 Last administered on 09/07/18at 08:21; Admin Dose 1 TAB; Start 09/01/18 at 19:30 Morphine Sulfate (morphine) 2 mg Q4H PRN IV .SEVERE PAIN 7-10; Start 09/01/18 at 19:30 Docusate Sodium (Colace) 100 mg Q12H PRN PO .CONSTIPATION; Start 09/01/18 at 19:30 Magnesium Hydroxide (Milk Of Mag) 30 ml DAILY PRN PO .CONSTIPATION; Start at 19:30 Lorazepam (Ativan) 0.5 mg Q6H PRN IV ANXIETY; Start 09/01/18 at 19:30 Albuterol/ Ipratropium (Duoneb) 3 ml Q4H RESP THERAPY PRN HHN SHORTNESS OF BREATH; Start 09/01/18 at 19:30 Hydralazine HCl (Apresoline) 10 mg Q6H PRN IV ELEVATED BLOOD PRESSURE; Start 09/01/18 at 19:30 Nitroglycerin (Nitroglycerin (Sl Tab) 0.4 Mg) 1 tab Q5M PRN SL ANGINA; Start 09/01/18 at 19:30 Apixaban (Eliquis) 2.5 mg BID PO Last administered on 09/07/18 21:01; Admin Dose 2.5 MG; Start 09/01/18 at 21:00 Aspirin (Halfprin) 81 mg DAILY PO Last administered on 09/07/18 08:13; Admin Dose 81 MG; Start 09/02/18 at 09:00 Atorvastatin Calcium (Lipitor) 40 mg QHS PO Last administered on 09/07/18 21:00; Admin Dose 40 MG; Start 09/01/18 at 21:00 Bumetanide (Bumex) 1 mg BID DIURETICS PO Last administered on 09/08/18 06:20; Admin Dose 1 MG; Start 09/01/18 at 21:00 Hydralazine HCl (Apresoline) 100 mg BID PO Last administered on 09/07/18 21:00; Admin Dose 100 MG; Start 09/01/18 at 21:00 Isosorbide Mononitrate (Imdur) 30 mg DAILY PO Last administered on 09/07/18 08:12; Admin Dose 30 MG; Start 09/02/18 at 09:00 Thiamine HCl (Vitamin B1) 100 mg DAILY PO Last administered on 09/07/18 08:12; Admin Dose 100 MG; Start 09/02/18 at 09:00 Fish Oil (Fish Oil) 2,000 mg BID PO Last administered on 09/07/18 21:00; Admin Dose 2,000 MG; Start 09/01/18 at 22:00 Diagnostic Test (Pha) (Accu-Chek) 1 ea 02 XX Last administered on 09/08/18 02:16; Admin Dose 1 EA; Start 09/04/18 at 02:00 Insulin Aspart (Novolog Insulin Pen) NOVOLOG *MILD* ALGORITHM WITH MEALS BEDTIME SC Last administered on 09/07/18 21:16; Admin Dose 4 UNIT; Start 09/03/18 at 11:50 Miscellaneous Information 1 ea NOTE XX ; Start 09/03/18 at 09:30 Glucose (Glutose) 15 gm Q15M PRN PO DECREASED GLUCOSE; Start 09/03/18 at 09:30 Glucose (Glutose) 22.5 gm Q15M PRN PO DECREASED GLUCOSE; Start 09/03/18 at 09:30 Dextrose (D50w Syringe) 25 ml Q15M PRN IV DECREASED GLUCOSE; Start 09/03/18 at 09:30 Dextrose (D50w Syringe) 50 ml Q15M PRN IV DECREASED GLUCOSE; Start 09/03/18 at 09:30 Glucagon (Glucagen) 1 mg Q15M PRN IM DECREASED GLUCOSE; Start 09/03/18 at 09:30 Glucose (Glutose) 15 gm Q15M PRN BUCCAL DECREASED GLUCOSE; Start 09/03/18 at 09:30 Carvedilol (Coreg) 12.5 mg BID PO Last administered on 09/07/18at 21:00; Admin Dose 12.5 MG; Start 09/03/18 at 21:00 Insulin Aspart (Novolog Insulin Pen) 6 unit WITH MEALS SC Last administered on 09/07/18at 16:44; Admin Dose 6 UNIT; Start 09/05/18 at 17:55 Insulin Glargine (Lantus) 17 units DAILY@0800 SC Last administered on 09/07/18at 07:48; Admin Dose 17 UNITS; Start 09/06/18 at 08:00 Ferric Sodium Gluconate Complex 125 mg/Sodium Chloride 100 ml @ 100 mls/hr DAILY@1300 IVPB Last administered on 09/07/18at 13:46; Admin Dose 100 MLS/HR; Start 09/06/18 at 13:00; Stop 09/08/18 at 13:59 Assessment/Plan Hospital Course (Demo Recall) 1. Acute kidney injury, nonoliguric on underlying CKD4. Labs today are in line with previous admissions - given previous history of cardiorenal syndrome, he may need to tolerate some azotemia to achieve euvolemia. Watch labs daily. slowly creeping up. -Quantify proteinuria. -continues to have declining kidney function. will hold diuretics today. - Imaging of kidney with isha. All medications are dosed appropriately continue current diuretic regimen and adjust accordingly. 2. Acute decompensated heart failure and chronic kidney disease. Continue current medical management. - hold diuretic regimen bumex 1mg po bid. coadministered with KCL. 3. Anemia. Hemoglobin has decreased since previous admission. likely component of anemia of chronic kidney disease, likely benefit from Epogen retirement. Iron saturation here was low. There may be a component of blood loss anemia. Check stool for occult blood. negative x1. started iv fe. 4. Type 1 diabetes, insulin adjust as needed. cont Victoza. 5. Dyslipidemia. Continue statin. 6. History of coronary artery disease, cardiac optimization. 7. Hypertension, controlled at present, may benefit from LOLY inhibitor once kidney function is known to be stable. COLE BLAKE MD Sep 08, 2018 08:05
[2018-09-08] MEDS: ASPIRIN (EC) 81 MG TAB PO SCH (08:22)
[2018-09-08] MEDS: THIAMINE 100 MG TAB PO SCH (08:22)
[2018-09-08] MEDS: ISOSORBIDE MONONITRATE(SR)30 MG TAB PO SCH (08:23)
[2018-09-08] MEDS: APIXABAN 5 MG TABLET PO SCH ×2 (08:24→21:09)
[2018-09-08] MEDS: INSULIN GLARGINE [LANTus] (100 UNITS/ML) SYG SC SCH (08:28)
[2018-09-08] MEDS: FISH OIL 1,000 MG CAP PO SCH ×2 (08:31→21:04)
[2018-09-08 10:56] VITALS: BP 119/63; PULSE 61; RESP 20
--- NOTE | 2018-09-08 11:07 | PN ---
Date/Time of Note Date/Time of Note DATE: 09/08/18 TIME: 11:05 Assessment/Plan VTE Prophylaxis Risk score (from Ns)>0 risk: 5 SCD applied (from Ns): No SCD contraindicated: other Pharmacological prophylaxis: apixaban Lines/Catheters IV Catheter Type (from [facility]): Sal[facility] Lock Urinary Cath still in place: No Assessment/Plan Hospital Course SUBJECTIVE: Denies any chest pain. Complains of dyspnea (improved). OBJECTIVE: Physical Exam General: Obese 72 year-old male lying in bed in mild respiratory distress. HEENT: Normocephalic, atraumatic. Eyes: Anicteric sclerae, conjunctivae clear. ENT: Nasal septum midline, oral mucosa moist. Neck supple. JVD noticed. Respiratory: Bilaterally diminished breath sounds. Bilateral rales at the bases. Cardiovascular: S1, S2 heard. Regular rate and rhythm. Abdomen: Soft, nontender, and nondistended. Bowel sounds positive in all 4 quadrants. Genitourinary: Deferred. Extremities: No cyanosis, no clubbing. Trace B/L pedal edema. Peripheral pulses palpable. Neurologic: Cranial nerves II through XII grossly intact. The patient is awake, alert, and oriented. Skin: Normal skin turgor. No skin rashes Labs & Vitals per chart ASSESSMENT & PLAN This is a 72-year-old male with past medical history of essential hypertension, CAD status post coronary artery stenting, type 2 diabetes mellitus, cardiomyopathy (fitted with LifeVest on 04/03/2018), sustained VT (on 03/22/2018), benign prostatic hypertrophy, gout, and chronic kidney disease who came to the emergency room with chief complaint of chest pain and dyspnea. 1. Chest pain. ACS ruled out. Being followed by cardiology. 2. Congestive heart failure exacerbation. Acute on chronic systolic dysfunction. Continue diuresis while carefully monitoring renal function. 3. History of sustained VT on 03/22/2018. Status post LifeVest placement in March 2018. Currently has no LifeVest in place. 4. Cardiomyopathy. Ejection fraction of 30%. Continue beta-blockers and nitrates. No ACEI/ARB because of CKD stage IV. 5. Hypertension. Continue antihypertensives. 6. Type 2 diabetes mellitus. The patient will be continued on sliding scale insulin along with pre-meal insulin and basal insulin. Latest hemoglobin A1c 9.7. 7. CAD. Status post coronary artery stenting. The patient will be continued on antiplatelet therapy. 8. Chronic kidney disease. Nephrotoxic drugs will be used with caution. The patient's BUN and creatinine will be monitored closely. Nephrology follow up. 9. Dyslipidemia. Continue statins and fish oil. 10. Fluids, electrolytes, and nutrition. Carbohydrate controlled diet. 11. DVT prophylaxis. Factor Xa inhibitors. 12. Plan. Continue diuresis while carefully monitoring renal function. Obtain pulmonary consult. Await clinical improvement before discharging the patient. The patient was seen in collaboration with Dr. Allen. Result Diagram: 09/08/18 0543 09/08/18 0543 Results 24hrs Laboratory Tests Test 09/07/18 11:45 09/07/18 16:40 09/07/18 20:53 09/07/18 23:59 Bedside Glucose 133 159 343 H 318 H Test 09/08/18 02:14 09/08/18 05:43 09/08/18 08:03 Bedside Glucose 216 112 White Blood Count 8.1 Red Blood Count 3.27 L Hemoglobin 8.1 L Hematocrit 26.2 L Mean Corpuscular 80.1 L Volume Mean Corpuscular 24.8 L Hemoglobin Mean Corpuscular 30.9 L Hemoglobin Concent Red Cell 16.1 H Distribution Width Platelet Count 232 Mean Platelet Volume 10.5 H Immature 0.200 Granulocytes % Neutrophils % 70.6 Lymphocytes % 7.4 L Monocytes % 18.1 H Eosinophils % 3.1 Basophils % 0.6 Nucleated Red Blood 0.0 Cells % Immature 0.020 Granulocytes # Neutrophils # 5.8 Lymphocytes # 0.6 L Monocytes # 1.5 H Eosinophils # 0.3 Basophils # 0.1 Nucleated Red Blood 0.0 Cells # Sodium Level 138 Potassium Level 3.4 L Chloride Level 101 Carbon Dioxide Level 28 Anion Gap 9 Blood Urea Nitrogen 88 H Creatinine 3.08 H Est Glomerular Filtrat Rate mL/min Glucose Level 94 Calcium Level 8.7 Phosphorus Level 6.0 H Magnesium Level 2.6 H Exam/Review of Systems Exam Vitals Vital Signs Date Temp Pulse Resp B/P (MAP) Pulse Ox O2 O2 Flow FiO2 Time Delivery Rate 09/08/18 97.5 61 20 119/63 97 Room Air 10:56 (81) 09/07/18 2.0 15:29 Intake and Output 09/07/18 09/07/18 09/08/18 1515:00 23:00 07:00 IntakeIntake Total 300 ml 520 ml 400 ml OutputOutput Total 200 ml 500 ml 900 ml BalanceBalance 100 ml 20 ml -500 ml Results Results 24hrs Laboratory Tests Test 09/07/18 11:45 09/07/18 16:40 09/07/18 20:53 09/07/18 23:59 Bedside Glucose 133 159 343 H 318 H Test 09/08/18 02:14 09/08/18 05:43 09/08/18 08:03 Bedside Glucose 216 112 White Blood Count 8.1 Red Blood Count 3.27 L Hemoglobin 8.1 L Hematocrit 26.2 L Mean Corpuscular 80.1 L Volume Mean Corpuscular 24.8 L Hemoglobin Mean Corpuscular 30.9 L Hemoglobin Concent Red Cell 16.1 H Distribution Width Platelet Count 232 Mean Platelet Volume 10.5 H Immature 0.200 Granulocytes % Neutrophils % 70.6 Lymphocytes % 7.4 L Monocytes % 18.1 H Eosinophils % 3.1 Basophils % 0.6 Nucleated Red Blood 0.0 Cells % Immature 0.020 Granulocytes # Neutrophils # 5.8 Lymphocytes # 0.6 L Monocytes # 1.5 H Eosinophils # 0.3 Basophils # 0.1 Nucleated Red Blood 0.0 Cells # Sodium Level 138 Potassium Level 3.4 L Chloride Level 101 Carbon Dioxide Level 28 Anion Gap 9 Blood Urea Nitrogen 88 H Creatinine 3.08 H Est Glomerular Filtrat Rate mL/min Glucose Level 94 Calcium Level 8.7 Phosphorus Level 6.0 H Magnesium Level 2.6 H Medications Medication Current Medications IV Flush (NS 3 ml) 3 ml PER PROTOCOL IV ; Start 09/01/18 at 19:30 Ondansetron HCl (Zofran Inj) 4 mg Q6H PRN IV NAUSEA/VOMITING Last administered on 09/07/18at 12:10; Admin Dose 4 MG; Start 09/01/18 at 19:30 Acetaminophen (Tylenol Tab) 650 mg Q6H PRN PO .PAIN 1-3 OR TEMP; Start 09/01/18 at 19:30 Acetaminophen/ Hydrocodone Bitart ([place] (5/325)) 1 tab Q6H PRN PO .MOD PAIN 4- 6 Last administered on 09/07/18at 08:21; Admin Dose 1 TAB; Start 09/01/18 at 19:30 Morphine Sulfate (morphine) 2 mg Q4H PRN IV .SEVERE PAIN 7-10; Start 09/01/18 at 19:30 Docusate Sodium (Colace) 100 mg Q12H PRN PO .CONSTIPATION; Start 09/01/18 at 19 :30 Magnesium Hydroxide (Milk Of Mag) 30 ml DAILY PRN PO .CONSTIPATION; Start 09/01/18 at 19:30 Lorazepam (Ativan) 0.5 mg Q6H PRN IV ANXIETY; Start 09/01/18 at 19:30 Albuterol/ Ipratropium (Duoneb) 3 ml Q4H RESP THERAPY PRN HHN SHORTNESS OF BREATH; Start 09/01/18 at 19:30 Hydralazine HCl (Apresoline) 10 mg Q6H PRN IV ELEVATED BLOOD PRESSURE; Start 09/01/18 at 19:30 Nitroglycerin (Nitroglycerin (Sl Tab) 0.4 Mg) 1 tab Q5M PRN SL ANGINA; Start 09/01/18 at 19:30 Apixaban (Eliquis) 2.5 mg BID PO Last administered on 09/08/18 08:24; Admin Dose 2.5 MG; Start 09/01/18 at 21:00 Aspirin (Halfprin) 81 mg DAILY PO Last administered on 09/08/18 08:22; Admin Dose 81 MG; Start 09/02/18 at 09:00 Atorvastatin Calcium (Lipitor) 40 mg QHS PO Last administered on 09/07/18 21:00; Admin Dose 40 MG; Start 09/01/18 at 21:00 Hydralazine HCl (Apresoline) 100 mg BID PO Last administered on 09/08/18 08 :22; Admin Dose 100 MG; Start 09/01/18 at 21:00 Isosorbide Mononitrate (Imdur) 30 mg DAILY PO Last administered on 09/08/18 08:23; Admin Dose 30 MG; Start 09/02/18 at 09:00 Thiamine HCl (Vitamin B1) 100 mg DAILY PO Last administered on 09/08/18 08:22; Admin Dose 100 MG; Start 09/02/18 at 09:00 Fish Oil (Fish Oil) 2,000 mg BID PO Last administered on 09/08/18 08:31; Admin Dose 2,000 MG; Start 09/01/18 at 22:00 Diagnostic Test (Pha) (Accu-Chek) 1 ea 02 XX Last administered on 09/08/18at 02:16; Admin Dose 1 EA; Start 09/04/18 at 02:00 Insulin Aspart (Novolog Insulin Pen) NOVOLOG *MILD* ALGORITHM WITH MEALS BEDTIME SC Last administered on 09/07/18at 21:16; Admin Dose 4 UNIT; Start 09/03/18 at 11:50 Miscellaneous Information 1 ea NOTE XX ; Start 09/03/18 at 09:30 Glucose (Glutose) 15 gm Q15M PRN PO DECREASED GLUCOSE; Start 09/03/18 at 09:30 Glucose (Glutose) 22.5 gm Q15M PRN PO DECREASED GLUCOSE; Start 09/03/18 at 09:30 Dextrose (D50w Syringe) 25 ml Q15M PRN IV DECREASED GLUCOSE; Start 09/03/18 at 09:30 Dextrose (D50w Syringe) 50 ml Q15M PRN IV DECREASED GLUCOSE; Start 09/03/18 at 09:30 Glucagon (Glucagen) 1 mg Q15M PRN IM DECREASED GLUCOSE; Start 09/03/18 at 09:30 Glucose (Glutose) 15 gm Q15M PRN BUCCAL DECREASED GLUCOSE; Start 09/03/18 at 09:30 Carvedilol (Coreg) 12.5 mg BID PO Last administered on 09/08/18at 08:24; Admin Dose 12.5 MG; Start 09/03/18 at 21:00 Insulin Aspart (Novolog Insulin Pen) 6 unit WITH MEALS SC Last administered on 09/08/18at 08:12; Admin Dose 6 UNIT; Start 09/05/18 at 17:55 Insulin Glargine (Lantus) 17 units DAILY@0800 SC Last administered on 09/08/18at 08:28; Admin Dose 17 UNITS; Start 09/06/18 at 08:00 Ferric Sodium Gluconate Complex 125 mg/Sodium Chloride 100 ml @ 100 mls/hr DAILY@1300 IVPB Last administered on 09/07/18at 13:46; Admin Dose 100 MLS/HR; Start 09/06/18 at 13:00; Stop 09/08/18 at 13:59 DALLIN ADAMS NP Sep 08, 2018 11:07
[2018-09-08] MEDS: SOD FERRIC GLUC COMPLX 125 MG in SOD CHLORIDE 0.9% 100 ML IVPB SCH (12:51)
--- NOTE | 2018-09-08 13:23 | CONS ---
DATE OF ADMISSION: 09/01/2018 DATE OF CONSULTATION: 09/08/2018 TYPE OF CONSULTATION: Cardiology. REASON FOR CONSULTATION: Shortness of breath. Thank you, Dr. Allen, for this consultation. HISTORY OF PRESENT ILLNESS: This is a 72-year-old gentleman with a history of systolic heart failure with reduced ejection fraction, came in with increasing shortness of breath, orthopnea, PND and wors ening renal function, found to have congestive cardiac failure on chest x-ray, now requiring diuretic s with improving hypoxemia. He has a history of heart failure with reduced ejection fraction of 20% to 25%. Previously had a vest for ventricular tachycardia. PAST MEDICAL HISTORY: As above. MEDICATIONS: Per chart. ALLERGIES: PENICILLIN. SOCIAL HISTORY: Nonsmoker, no alcohol, no history of drug use. FAMILY HISTORY: Noncontributory. SYSTEMS REVIEW: A 12-point review of systems was negative other than that mentioned above. PHYSICAL EXAMINATION: GENERAL: Elderly-appearing gentleman, comfortable at rest, no acute distress. VITAL SIGNS: Currently afebrile, pulse is 61, blood pressure 119/63, O2 saturation 97% on room air. NECK: Supple. No JVD or lymphadenopathy. CARDIAC: S1, S2, no added sounds or murmurs. CHEST: Diminished air entry bilaterally. ABDOMEN: Soft, nontender. No guarding or rebound. EXTREMITIES: No cyanosis, clubbing, edema. NEUROLOGIC: Grossly intact. No focal deficits. LABORATORY DATA: White count 8.1, hemoglobin 8.1, platelets of 232. Chemistry: BUN 88, creatinine 3.08. INR 0.95. IMPRESSION AND PLAN: 1. Cardiomyopathy with recurrent systolic heart failure. 2. Renal insufficiency. 3. Type 1 diabetes. PLAN: 1. Continue diuretics. 2. Renal recommendations: 3. Glycemic management. 4. Close outpatient followup with primary care physician and wine steward. Dictated By: CINTIA MAXWELL MD SV/NTS Conf#: [id number] DID#: [id number] CC: DALILA TAVERAS MD;*EndCC*
--- NOTE | 2018-09-08 14:14 | CONS ---
Assessment/Plan Cardiology NYHA: IV Heart Failure Type: Acute on Chronic Heart Failure Type: Both Assessment/Plan Hospital Course (Demo Recall) Acute decompensated systolic congestive heart failure Cardia myopathy with ejection fraction 25% Mild to moderate coronary artery disease left heart catheterization January 2016 History of ventricular tachycardia, with history of LifeVest Acute kidney injury CKD Hypertension HR stable Cont Coreg Diuretics as tolerated in setting of CKD-being followed by renal Consultation Date/Type/Reason Admit Date/Time Sep 01, 2018 at 19:14 Initial Consult Date 09/02/18 Type of Consult Cardiology Requesting Provider: JAD SHIN NP Date/Time of Note DATE: 09/08/18 TIME: 14:10 24 HR Interval Summary Free Text/Dictation No shortness of breath, nausea is better Exam/Review of Systems Vital Signs Vitals Vital Signs Date Temp Pulse Resp B/P (MAP) Pulse Ox O2 O2 Flow FiO2 Time Delivery Rate 09/08/18 97.5 61 20 119/63 97 Room Air 10:56 (81) 09/07/18 2.0 15:29 Intake and Output 09/07/18 09/07/18 09/08/18 1515:00 23:00 07:00 IntakeIntake Total 300 ml 520 ml 400 ml OutputOutput Total 200 ml 500 ml 900 ml BalanceBalance 100 ml 20 ml -500 ml Exam Constitutional: alert, oriented (Eating lunch, no apparent distress) Respiratory: other (Coarse breath sounds bilaterally, no wheezing) Cardiovascular: regular rate and rhythm (S1-S2 heard) Gastrointestinal: soft, non-tender, bowel sounds Extremities: edema Labs Result Diagram: 09/08/18 0543 09/08/18 0543 Results 24hrs Laboratory Tests Test 09/07/18 16:40 09/07/18 20:53 09/07/18 23:59 09/08/18 02:14 Bedside Glucose 159 343 H 318 H 216 Test 09/08/18 05:43 09/08/18 08:03 09/08/18 11:34 White Blood Count 8.1 Red Blood Count 3.27 L Hemoglobin 8.1 L Hematocrit 26.2 L Mean Corpuscular 80.1 L Volume Mean Corpuscular 24.8 L Hemoglobin Mean Corpuscular 30.9 L Hemoglobin Concent Red Cell 16.1 H Distribution Width Platelet Count 232 Mean Platelet Volume 10.5 H Immature 0.200 Granulocytes % Neutrophils % 70.6 Lymphocytes % 7.4 L Monocytes % 18.1 H Eosinophils % 3.1 Basophils % 0.6 Nucleated Red Blood 0.0 Cells % Immature 0.020 Granulocytes # Neutrophils # 5.8 Lymphocytes # 0.6 L Monocytes # 1.5 H Eosinophils # 0.3 Basophils # 0.1 Nucleated Red Blood 0.0 Cells # Sodium Level 138 Potassium Level 3.4 L Chloride Level 101 Carbon Dioxide Level 28 Anion Gap 9 Blood Urea Nitrogen 88 H Creatinine 3.08 H Est Glomerular Filtrat Rate mL/min Glucose Level 94 Calcium Level 8.7 Phosphorus Level 6.0 H Magnesium Level 2.6 H Bedside Glucose 112 170 Medications Medications Current Medications IV Flush (NS 3 ml) 3 ml PER PROTOCOL IV ; Start 09/01/18 at 19:30 Ondansetron HCl (Zofran Inj) 4 mg Q6H PRN IV NAUSEA/VOMITING Last administered on 09/07/18at 12:10; Admin Dose 4 MG; Start 09/01/18 at 19:30 Acetaminophen (Tylenol Tab) 650 mg Q6H PRN PO .PAIN 1-3 OR TEMP; Start 09/01/18 at 19:30 Acetaminophen/ Hydrocodone Bitart ([place] (5/325)) 1 tab Q6H PRN PO .MOD PAIN 4- 6 Last administered on 09/07/18at 08:21; Admin Dose 1 TAB; Start 09/01/18 at 19:30 Morphine Sulfate (morphine) 2 mg Q4H PRN IV .SEVERE PAIN 7-10; Start 09/01/18 at 19:30 Docusate Sodium (Colace) 100 mg Q12H PRN PO .CONSTIPATION; Start 09/01/18 at 19:30 Magnesium Hydroxide (Milk Of Mag) 30 ml DAILY PRN PO .CONSTIPATION; Start 09/01/18 at 19:30 Lorazepam (Ativan) 0.5 mg Q6H PRN IV ANXIETY; Start 09/01/18 at 19:30 Albuterol/ Ipratropium (Duoneb) 3 ml Q4H RESP THERAPY PRN HHN SHORTNESS OF BREATH; Start 09/01/18 at 19:30 Hydralazine HCl (Apresoline) 10 mg Q6H PRN IV ELEVATED BLOOD PRESSURE; Start 09/01/18 at 19:30 Nitroglycerin (Nitroglycerin (Sl Tab) 0.4 Mg) 1 tab Q5M PRN SL ANGINA; Start 09/01/18 at 19:30 Apixaban (Eliquis) 2.5 mg BID PO Last administered on 09/08/18 08:24; Admin Dose 2.5 MG; Start 09/01/18 at 21:00 Aspirin (Halfprin) 81 mg DAILY PO Last administered on 09/08/18 08:22; Admin Dose 81 MG; Start 09/02/18 at 09:00 Atorvastatin Calcium (Lipitor) 40 mg QHS PO Last administered on 09/07/18 21:00; Admin Dose 40 MG; Start 09/01/18 at 21:00 Hydralazine HCl (Apresoline) 100 mg BID PO Last administered on 09/08/18 08:22; Admin Dose 100 MG; Start 09/01/18 at 21:00 Isosorbide Mononitrate (Imdur) 30 mg DAILY PO Last administered on 09/08/18 08:23; Admin Dose 30 MG; Start 09/02/18 at 09:00 Thiamine HCl (Vitamin B1) 100 mg DAILY PO Last administered on 09/08/18 08:22; Admin Dose 100 MG; Start 09/02/18 at 09:00 Fish Oil (Fish Oil) 2,000 mg BID PO Last administered on 09/08/18 08:31; Admin Dose 2,000 MG; Start 09/01/18 at 22:00 Diagnostic Test (Pha) (Accu-Chek) 1 ea 02 XX Last administered on 09/08/18 02:16; Admin Dose 1 EA; Start 09/04/18 at 02:00 Insulin Aspart (Novolog Insulin Pen) NOVOLOG *MILD* ALGORITHM WITH MEALS BED TIME SC Last administered on 09/08/18at 11:40; Admin Dose 1 UNIT; Start 09/03/18 at 11:50 Miscellaneous Information 1 ea NOTE XX ; Start 09/03/18 at 09:30 Glucose (Glutose) 15 gm Q15M PRN PO DECREASED GLUCOSE; Start 09/03/18 at 09:30 Glucose (Glutose) 22.5 gm Q15M PRN PO DECREASED GLUCOSE; Start 09/03/18 at 09:30 Dextrose (D50w Syringe) 25 ml Q15M PRN IV DECREASED GLUCOSE; Start 09/03/18 at 09:30 Dextrose (D50w Syringe) 50 ml Q15M PRN IV DECREASED GLUCOSE; Start 09/03/18 at 09:30 Glucagon (Glucagen) 1 mg Q15M PRN IM DECREASED GLUCOSE; Start 09/03/18 at 09:30 Glucose (Glutose) 15 gm Q15M PRN BUCCAL DECREASED GLUCOSE; Start 09/03/18 at 09:30 Carvedilol (Coreg) 12.5 mg BID PO Last administered on 09/08/18at 08:24; Admin Dose 12.5 MG; Start 09/03/18 at 21:00 Insulin Aspart (Novolog Insulin Pen) 6 unit WITH MEALS SC Last administered on 09/08/18at 11:52; Admin Dose 6 UNIT; Start 09/05/18 at 17:55 Insulin Glargine (Lantus) 17 units DAILY@0800 SC Last administered on 09/08/18at 08:28; Admin Dose 17 UNITS; Start 09/06/18 at 08:00 Agustin Traylor DO Sep 08, 2018 14:14
[2018-09-08 15:00] VITALS: BP 110/63; PULSE 59; RESP 20
[2018-09-08 19:38] VITALS: BP 119/65; PULSE 64; RESP 19
[2018-09-08] MEDS: ATORVASTATIN 40 MG TAB PO SCH (21:04)
[2018-09-09] VITALS: BP 129/65; PULSE 63; RESP 19
[2018-09-09] MEDS: ACCU-CHEK XX SCH (02:00)
[2018-09-09 04:00] VITALS: BP 124/64; PULSE 60; RESP 19
--- NOTE | 2018-09-09 07:54 | CONS ---
Consult Date/Type/Reason Admit Date/Time Sep 01, 2018 at 19:14 Initial Consult Date 09/02/18 Requesting Provider: JAD SHIN NP Date/Time of Note DATE: 09/09/18 TIME: 07:49 Subjective 72-year-old gentleman with past medical history of cardiomyopathy, EF 20%, type 1 diabetes, hypertension and dyslipidemia, nonsustained ventricular tachycardia, coronary artery disease, CKD. He presents to the hospital after noticing dyspnea and chest pain. The patient was in this hospital a month ago, seen by Dr. Ruiz. The patient had a similar presentation with a congestive heart f ailure exacerbation. The patient was noted to have a CHF exacerbation again and an x-ray with pleural effusion with hypertension on presentation. The patient was admitted with [id number] congestive heart failure exacerbation, type 1 diabetes, on insulin. Creatinine was noted to be 2.5. The patient has had previous history of CKD. The lowest creatinine on record was at 2.1. Discharged with a creatinine of 2.7. There has been no recent fevers, chills, nausea, vomiting, chest pain, shortness of breath with evidence of effusion. No fevers, chills, nausea, vomiting. The patient denies history of frequent urinary tract infections or kidney stones. Denies nocturia. The patient was described as having CKD presumably from diabetes. contiues good uo. held diuretic since yesterday am. PHYSICAL EXAMINATION: HEENT: Normocephalic, atraumatic. Pupils equal and reactive to light. Oropharynx has moist mucous membranes. NECK: Supple. HEART: Regular rate and rhythm. LUNGS: clear breath sounds bilaterally. ABDOMEN: Soft, nontender, nondistended. Bowel sounds to auscultation. EXTREMITIES: No clubbing, cyanosis or edema. Objective Vitals Vital Signs Date Temp Pulse Resp B/P (MAP) Pulse Ox O2 O2 Flow FiO2 Time Delivery Rate 09/09/18 97.6 60 19 124/64 94 Room Air 04:00 (84) 09/07/18 2.0 15:29 Intake and Output 09/08/18 09/08/18 09/09/18 1515:00 23:00 07:00 IntakeIntake Total 480 ml 480 ml 200 ml OutputOutput Total 300 ml 200 ml 400 ml BalanceBalance 180 ml 280 ml -200 ml Results/Medications Result Diagram: 09/09/18 0600 09/09/18 0600 Results 24 hrs Laboratory Tests Test 09/08/18 08:03 09/08/18 11:34 09/08/18 15:55 09/08/18 17:20 Bedside Glucose 112 170 156 Urine Color YELLOW Urine Clarity CLEAR Urine pH 5.0 Urine Specific 1.012 [place] Urine Ketones NEGATIVE Urine Nitrite NEGATIVE Urine Bilirubin NEGATIVE Urine Urobilinogen NEGATIVE Urine Leukocyte NEGATIVE Esterase Urine Microscopic 0 RBC Urine Microscopic 0 WBC Urine Eosinophils % 0.0 Urine Hemoglobin NEGATIVE Urine Random 76.03 Creatinine Urine Random Sodium < 13 L Urine Glucose NEGATIVE Urine Total Protein 2+ H Test 09/08/18 20:59 09/09/18 06:00 Bedside Glucose 113 White Blood Count 7.8 Red Blood Count 3.52 L Hemoglobin 8.7 L Hematocrit 28.5 L Mean Corpuscular 81.0 L Volume Mean Corpuscular 24.7 L Hemoglobin Mean Corpuscular 30.5 L Hemoglobin Concent Red Cell 16.1 H Distribution Width Platelet Count 268 Mean Platelet Volume 11.1 H Immature 0.400 Granulocytes % Neutrophils % 69.2 Lymphocytes % 11.6 L Monocytes % 13.9 H Eosinophils % 4.0 Basophils % 0.9 Nucleated Red Blood 0.0 Cells % Immature 0.030 Granulocytes # Neutrophils # 5.4 Lymphocytes # 0.9 Monocytes # 1.1 H Eosinophils # 0.3 Basophils # 0.1 Nucleated Red Blood 0.0 Cells # Sodium Level 138 Potassium Level 4.2 Chloride Level 101 Carbon Dioxide Level 27 Anion Gap 10 Blood Urea Nitrogen 97 H Creatinine 3.25 H Est Glomerular Filtrat Rate mL/min Glucose Level 92 Calcium Level 8.9 Phosphorus Level 5.8 H Magnesium Level 2.5 Home Meds Active Scripts Thiamine* (Thiamine*) 100 Mg Tablet, 100 MG PO DAILY for 30 Days, #30 TAB Prov:CHUY HORTON MD 04/01/18 Reported Medications Bumetanide* (Bumetanide*) 1 Mg Tablet, 1 MG PO BID, TAB 09/01/18 Liraglutide (Victoza 3-Donnie) 0.6 Mg/0.1 Ml Pen.injctr, 1.8 MG SQ BID, SYR 07/30/18 [place]-3 Acid Ethyl Esters (Lovaza) 1 Gm Capsule, 2 GM PO BID, CAP 07/30/18 Apixaban* (Eliquis*) 2.5 Mg Tablet, 2.5 MG PO BID, TAB 06/07/18 Carvedilol* (Carvedilol*) 6.25 Mg Tablet, 6.25 MG PO BID, #60 TAB 06/07/18 Hydralazine Hcl* (Hydralazine Hcl*) 100 Mg Tablet, 100 MG PO BID, #90 TAB 06/07/18 Isosorbide Mononitrate* (Isosorbide Mononitrate*) 30 Mg Tab.er.24h, 30 MG PO DAILY, TAB 03/20/18 Aspirin* (Aspirin* EC) 81 Mg Tablet.dr, 81 MG PO DAILY, TAB 03/04/18 Insulin Glargine,Hum.rec.anlog (Chhaya Boswell) 300 Unit/1 Ml Insuln.pen, 42 UNIT SQ QPM, EA 03/04/18 Atorvastatin* (Atorvastatin*) 40 Mg Tablet, 40 MG PO QHS, #30 TAB 03/04/18 Medications Current Medications IV Flush (NS 3 ml) 3 ml PER PROTOCOL IV ; Start 09/01/18 at 19:30 Ondansetron HCl (Zofran Inj) 4 mg Q6H PRN IV NAUSEA/VOMITING Last administered on 09/07/18at 12:10; Admin Dose 4 MG; Start 09/01/18 at 19:30 Acetaminophen (Tylenol Tab) 650 mg Q6H PRN PO .PAIN 1-3 OR TEMP; Start 09/01/18 at 19:30 Acetaminophen/ Hydrocodone Bitart ([place] (5/325)) 1 tab Q6H PRN PO .MOD PAIN 4- 6 Last administered on 09/07/18at 08:21; Admin Dose 1 TAB; Start 09/01/18 at 19:30 Morphine Sulfate (morphine) 2 mg Q4H PRN IV .SEVERE PAIN 7-10; Start 09/01/18 at 19:30 Docusate Sodium (Colace) 100 mg Q12H PRN PO .CONSTIPATION; Start 09/01/18 at 19:30 Magnesium Hydroxide (Milk Of Mag) 30 ml DAILY PRN PO .CONSTIPATION; Start 09/01/18 at 19:30 Lorazepam (Ativan) 0.5 mg Q6H PRN IV ANXIETY; Start 09/01/18 at 19:30 Albuterol/ Ipratropium (Duoneb) 3 ml Q4H RESP THERAPY PRN HHN SHORTNESS OF BREATH; Start 09/01/18 at 19:30 Hydralazine HCl (Apresoline) 10 mg Q6H PRN IV ELEVATED BLOOD PRESSURE; Start 09/01/18 at 19:30 Nitroglycerin (Nitroglycerin (Sl Tab) 0.4 Mg) 1 tab Q5M PRN SL ANGINA; Start 09/01/18 at 19:30 Apixaban (Eliquis) 2.5 mg BID PO Last administered on 09/08/18 21:09; Admin Dose 2.5 MG; Start 09/01/18 at 21:00 Atorvastatin Calcium (Lipitor) 40 mg QHS PO Last administered on 09/08/18 21:04; Admin Dose 40 MG; Start 09/01/18 at 21:00 Hydralazine HCl (Apresoline) 100 mg BID PO Last administered on 09/08/18 21:12; Admin Dose 100 MG; Start 09/01/18 at 21:00 Isosorbide Mononitrate (Imdur) 30 mg DAILY PO Last administered on 09/08/18 08:23; Admin Dose 30 MG; Start 09/02/18 at 09:00 Thiamine HCl (Vitamin B1) 100 mg DAILY PO Last administered on 09/08/18 08:22; Admin Dose 100 MG; Start 09/02/18 at 09:00 Fish Oil (Fish Oil) 2,000 mg BID PO Last administered on 09/08/18 21:04; Admin Dose 2,000 MG; Start 09/01/18 at 22:00 Diagnostic Test (Pha) (Accu-Chek) 1 ea 02 XX Last administered on 09/08/18at 02:16; Admin Dose 1 EA; Start 09/04/18 at 02:00 Insulin Aspart (Novolog Insulin Pen) NOVOLOG *MILD* ALGORITHM WITH MEALS BEDTIME SC Last administered on 09/08/18at 17:30; Admin Dose 1 UNIT; Start 09/03/18 at 11:50 Miscellaneous Information 1 ea NOTE XX ; Start 09/03/18 at 09:30 Glucose (Glutose) 15 gm Q15M PRN PO DECREASED GLUCOSE; Start 09/03/18 at 09:30 Glucose (Glutose) 22.5 gm Q15M PRN PO DECREASED GLUCOSE; Start 09/03/18 at 09:30 Dextrose (D50w Syringe) 25 ml Q15M PRN IV DECREASED GLUCOSE; Start 09/03/18 at 09:30 Dextrose (D50w Syringe) 50 ml Q15M PRN IV DECREASED GLUCOSE; Start 09/03/18 at 09:30 Glucagon (Glucagen) 1 mg Q15M PRN IM DECREASED GLUCOSE; Start 09/03/18 at 09:30 Glucose (Glutose) 15 gm Q15M PRN BUCCAL DECREASED GLUCOSE; Start 09/03/18 at 09:30 Carvedilol (Coreg) 12.5 mg BID PO Last administered on 09/08/18at 21:13; Admin Dose 12.5 MG; Start 09/03/18 at 21:00 Insulin Aspart (Novolog Insulin Pen) 6 unit WITH MEALS SC Last administered on 09/08/18at 17:30; Admin Dose 6 UNIT; Start 09/05/18 at 17:55 Insulin Glargine (Lantus) 17 units DAILY@0800 SC Last administered on 09/08/18at 08:28; Admin Dose 17 UNITS; Start 09/06/18 at 08:00 Assessment/Plan Hospital Course (Demo Recall) 1. Acute kidney injury, nonoliguric on underlying CKD4. Labs today are slightly worse. - given previous history of cardiorenal syndrome, he may need to tolerate some azotemia to achieve euvolemia. Watch labs daily. slowly creeping up. -Urine studies show FENa <<1. still waiting on urine protein to quantify proteinuria. - Imaging of kidney with isha. showed Echogenic atrophic left kidney. Cannot exclude prior infarct or intrinsic renal disease. There are 2 hypoechoic lesion arising from the left kidney, which are likely cysts. No hydronephrosis or ne phrolithiasis. - All medications are dosed appropriately - continue monitor off diuretics. 2. Acute decompensated heart failure and chronic kidney disease. Continue current medical management. - hold diuretic regimen bumex 1mg po bid. . 3. Anemia. Hemoglobin has decreased since previous admission. likely component of anemia of chronic kidney disease, likely benefit from Epogen intermediate. Iron saturation here was low. There may be a component of blood loss anemia. Check stool for occult blood. negative x1. started iv fe with 3 dosed. 4. Type 1 diabetes, insulin adjust as needed. cont Victoza. 5. Dyslipidemia. Continue statin. 6. History of coronary artery disease, cardiac optimization. 7. Hypertension, controlled at present, may benefit from LOLY inhibitor once kidney function is known to be stable. COLE BLAKE MD Sep 09, 2018 07:54
[2018-09-09] MEDS: INSULIN ASPART [NOVOLOG] 3 ML PEN SC SCH ×7 (07:55→20:20)
[2018-09-09 08:09] VITALS: BP 124/65; PULSE 53; RESP 16
[2018-09-09] MEDS: FISH OIL 1,000 MG CAP PO SCH ×2 (08:12→20:13)
[2018-09-09] MEDS: ISOSORBIDE MONONITRATE(SR)30 MG TAB PO SCH (08:12)
[2018-09-09] MEDS: THIAMINE 100 MG TAB PO SCH (08:13)
[2018-09-09] MEDS: APIXABAN 5 MG TABLET PO SCH ×2 (08:13→20:15)
[2018-09-09] MEDS: INSULIN GLARGINE [LANTus] (100 UNITS/ML) SYG SC SCH (08:24)
--- NOTE | 2018-09-09 10:28 | PN ---
Date/Time of Note Date/Time of Note DATE: 09/09/18 TIME: 10:28 Assessment/Plan VTE Prophylaxis Risk score (from Ns)>0 risk: 2 SCD applied (from Nsg): Yes Pharmacological prophylaxis: apixaban Lines/Catheters IV [facility]from [facility] [place] [facility] Urinary Cath still in place: No Assessment/Plan Hospital Course SUBJECTIVE: Denies any chest pain. Complains of dyspnea (improved). OBJECTIVE: Physical Exam General: Obese 72 year-old male lying in bed in mild respiratory distress. HEENT: Normocephalic, atraumatic. Eyes: Anicteric sclerae, conjunctivae clear. ENT: Nasal septum midline, oral mucosa moist. Neck supple. JVD noticed. Respiratory: Bilaterally diminished breath sounds. Bilateral rales at the bases. Cardiovascular: S1, S2 heard. Regular rate and rhythm. Abdomen: Soft, nontender, and nondistended. Bowel sounds positive in all 4 quadrants. Genitourinary: Deferred. Extremities: No cyanosis, no clubbing. Trace B/L pedal edema. Peripheral pulses palpable. Neurologic: Cranial nerves II through XII grossly intact. The patient is awake, alert, and oriented. Skin: Normal skin turgor. No skin rashes Labs & Vitals per chart ASSESSMENT & PLAN This is a 72-year-old male with past medical history of essential hypertension, CAD status post coronary artery stenting, type 2 diabetes mellitus, cardiomyopathy (fitted with LifeVest on 04/03/2018), sustained VT (on 03/22/2018), benign prostatic hypertrophy, gout, and chronic kidney disease who came to the emergency room with chief complaint of chest pain and dyspnea. 1. Chest pain. ACS ruled out. Being followed by cardiology. 2. Congestive heart failure exacerbation. Acute on chronic systolic dysfunction. Continue diuresis while carefully monitoring renal function. 3. History of sustained VT on 03/22/2018. Status post LifeVest placement in March 2018. Currently has no LifeVest in place. 4. Cardiomyopathy. Ejection fraction of 30%. Continue beta-blockers and nitrates. No ACEI/ARB because of CKD stage IV. 5. Hypertension. Continue antihypertensives. 6. Type 2 diabetes mellitus. The patient will be continued on sliding scale insulin along with pre-meal insulin and basal insulin. Latest hemoglobin A1c 9.7. 7. CAD. Status post coronary artery stenting. The patient will be continued on antiplatelet therapy. 8. Chronic kidney disease. Nephrotoxic drugs will be used with caution. The patient's BUN and creatinine will be monitored closely. Nephrology follow up. 9. Dyslipidemia. Continue statins and fish oil. 10. Fluids, electrolytes, and nutrition. Carbohydrate controlled diet. 11. DVT prophylaxis. Factor Xa inhibitors. 12. Plan. Continue diuresis while carefully monitoring renal function. Await clinical improvement before discharging the patient home. The patient was seen in collaboration with Dr. Allen. Result Diagram: 09/09/18 0600 09/09/18 0600 Results 24hrs Laboratory Tests Test 09/08/18 11:34 09/08/18 15:55 09/08/18 17:20 09/08/18 20:59 Bedside Glucose 170 156 113 Urine Color YELLOW Urine Clarity CLEAR Urine pH 5.0 Urine Specific 1.012 [place] Urine Ketones NEGATIVE Urine Nitrite NEGATIVE Urine Bilirubin NEGATIVE Urine Urobilinogen NEGATIVE Urine Leukocyte NEGATIVE Esterase Urine Microscopic 0 RBC Urine Microscopic 0 WBC Urine Eosinophils % 0.0 Urine Hemoglobin NEGATIVE Urine Random 76.03 Creatinine Urine Random Sodium < 13 L Urine Glucose NEGATIVE Urine Total Protein 2+ H Test 09/09/18 06:00 09/09/18 08:10 White Blood Count 7.8 Red Blood Count 3.52 L Hemoglobin 8.7 L Hematocrit 28.5 L Mean Corpuscular 81.0 L Volume Mean Corpuscular 24.7 L Hemoglobin Mean Corpuscular 30.5 L Hemoglobin Concent Red Cell 16.1 H Distribution Width Platelet Count 268 Mean Platelet Volume 11.1 H Immature 0.400 Granulocytes % Neutrophils % 69.2 Lymphocytes % 11.6 L Monocytes % 13.9 H Eosinophils % 4.0 Basophils % 0.9 Nucleated Red Blood 0.0 Cells % Immature 0.030 Granulocytes # Neutrophils # 5.4 Lymphocytes # 0.9 Monocytes # 1.1 H Eosinophils # 0.3 Basophils # 0.1 Nucleated Red Blood 0.0 Cells # Sodium Level 138 Potassium Level 4.2 Chloride Level 101 Carbon Dioxide Level 27 Anion Gap 10 Blood Urea Nitrogen 97 H Creatinine 3.25 H Est Glomerular Filtrat Rate mL/min Glucose Level 92 Calcium Level 8.9 Phosphorus Level 5.8 H Magnesium Level 2.5 Bedside Glucose 102 Exam/Review of Systems Exam Vitals Vital Signs Date Temp Pulse Resp B/P (MAP) Pulse Ox O2 O2 Flow FiO2 Time Delivery Rate 7/27/19 97.7 53 16 124/65 94 Room Air 08:09 (84) 09/07/18 2.0 15:29 Intake and Output 09/08/18 09/08/18 09/09/18 1515:00 23:00 07:00 IntakeIntake Total 480 ml 480 ml 200 ml OutputOutput Total 300 ml 200 ml 400 ml BalanceBalance 180 ml 280 ml -200 ml Results Results 24hrs Laboratory Tests Test 09/08/18 11:34 09/08/18 15:55 09/08/18 17:20 09/08/18 20:59 Bedside Glucose 170 156 113 Urine Color YELLOW Urine Clarity CLEAR Urine pH 5.0 Urine Specific 1.012 [place] Urine Ketones NEGATIVE Urine Nitrite NEGATIVE Urine Bilirubin NEGATIVE Urine Urobilinogen NEGATIVE Urine Leukocyte NEGATIVE Esterase Urine Microscopic 0 RBC Urine Microscopic 0 WBC Urine Eosinophils % 0.0 Urine Hemoglobin NEGATIVE Urine Random 76.03 Creatinine Urine Random Sodium < 13 L Urine Glucose NEGATIVE Urine Total Protein 2+ H Test 09/09/18 06:00 09/09/18 08:10 White Blood Count 7.8 Red Blood Count 3.52 L Hemoglobin 8.7 L Hematocrit 28.5 L Mean Corpuscular 81.0 L Volume Mean Corpuscular 24.7 L Hemoglobin Mean Corpuscular 30.5 L Hemoglobin Concent Red Cell 16.1 H Distribution Width Platelet Count 268 Mean Platelet Volume 11.1 H Immature 0.400 Granulocytes % Neutrophils % 69.2 Lymphocytes % 11.6 L Monocytes % 13.9 H Eosinophils % 4.0 Basophils % 0.9 Nucleated Red Blood 0.0 Cells % Immature 0.030 Granulocytes # Neutrophils # 5.4 Lymphocytes # 0.9 Monocytes # 1.1 H Eosinophils # 0.3 Basophils # 0.1 Nucleated Red Blood 0.0 Cells # Sodium Level 138 Potassium Level 4.2 Chloride Level 101 Carbon Dioxide Level 27 Anion Gap 10 Blood Urea Nitrogen 97 H Creatinine 3.25 H Est Glomerular Filtrat Rate mL/min Glucose Level 92 Calcium Level 8.9 Phosphorus Level 5.8 H Magnesium Level 2.5 Bedside Glucose 102 Medications Medication Current Medications IV Flush (NS 3 ml) 3 ml PER PROTOCOL IV ; Start 09/01/18 at 19:30 Ondansetron HCl (Zofran Inj) 4 mg Q6H PRN IV NAUSEA/VOMITING Last administered on 09/07/18 12:10; Admin Dose 4 MG; Start 09/01/18 at 19:30 Acetaminophen (Tylenol Tab) 650 mg Q6H PRN PO .PAIN 1-3 OR TEMP; Start 09/01/18 at 19:30 Acetaminophen/ Hydrocodone Bitart ([place] (5/325)) 1 tab Q6H PRN PO .MOD PAIN 4- 6 Last administered on 09/07/18 08:21; Admin Dose 1 TAB; Start 09/01/18 at 19:30 Morphine Sulfate (morphine) 2 mg Q4H PRN IV .SEVERE PAIN 7-10; Start 09/01/18 at 19:30 Docusate Sodium (Colace) 100 mg Q12H PRN PO .CONSTIPATION; Start 09/01/18 at 19:30 Magnesium Hydroxide (Milk Of Mag) 30 ml DAILY PRN PO .CONSTIPATION; Start 09/01/18 at 19:30 Lorazepam (Ativan) 0.5 mg Q6H PRN IV ANXIETY; Start 09/01/18 at 19:30 Albuterol/ Ipratropium (Duoneb) 3 ml Q4H RESP THERAPY PRN HHN SHORTNESS OF BREATH; Start 09/01/18 at 19:30 Hydralazine HCl (Apresoline) 10 mg Q6H PRN IV ELEVATED BLOOD PRESSURE; Start 09/01/18 at 19:30 Nitroglycerin (Nitroglycerin (Sl Tab) 0.4 Mg) 1 tab Q5M PRN SL ANGINA; Start 09/01/18 at 19:30 Apixaban (Eliquis) 2.5 mg BID PO Last administered on 09/09/18 08:13; Admin Dose 2.5 MG; Start 09/01/18 at 21:00 Atorvastatin Calcium (Lipitor) 40 mg QHS PO Last administered on 09/08/18 21:04; Admin Dose 40 MG; Start 09/01/18 at 21:00 Hydralazine HCl (Apresoline) 100 mg BID PO Last administered on 09/09/18 08:12; Admin Dose 100 MG; Start 09/01/18 at 21:00 Isosorbide Mononitrate (Imdur) 30 mg DAILY PO Last administered on 09/09/18 08:12; Admin Dose 30 MG; Start 09/02/18 at 09:00 Thiamine HCl (Vitamin B1) 100 mg DAILY PO Last administered on 09/09/18 08:13; Admin Dose 100 MG; Start 09/02/18 at 09:00 Fish Oil (Fish Oil) 2,000 mg BID PO Last administered on 09/09/18 08:12; Admin Dose 2,000 MG; Start 09/01/18 at 22:00 Diagnostic Test (Pha) (Accu-Chek) 1 ea 02 XX Last administered on 09/08/18 02:16; Admin Dose 1 EA; Start 09/04/18 at 02:00 Insulin Aspart (Novolog Insulin Pen) NOVOLOG *MILD* ALGORITHM WITH MEALS BEDTIME SC Last administered on 09/08/18 17:30; Admin Dose 1 UNIT; Start 09/03/18 at 11:50 Miscellaneous Information 1 ea NOTE XX ; Start 09/03/18 at 09:30 Glucose (Glutose) 15 gm Q15M PRN PO DECREASED GLUCOSE; Start 09/03/18 at 09:30 Glucose (Glutose) 22.5 gm Q15M PRN PO DECREASED GLUCOSE; Start 09/03/18 at 09:30 Dextrose (D50w Syringe) 25 ml Q15M PRN IV DECREASED GLUCOSE; Start 09/03/18 at 09:30 Dextrose (D50w Syringe) 50 ml Q15M PRN IV DECREASED GLUCOSE; Start 09/03/18 at 09:30 Glucagon (Glucagen) 1 mg Q15M PRN IM DECREASED GLUCOSE; Start 09/03/18 at 09:30 Glucose (Glutose) 15 gm Q15M PRN BUCCAL DECREASED GLUCOSE; Start 09/03/18 at 09:30 Carvedilol (Coreg) 12.5 mg BID PO Last administered on 09/09/18 08:13; Admin Dose 12.5 MG; Start 09/03/18 at 21:00 Insulin Aspart (Novolog Insulin Pen) 6 unit WITH MEALS SC Last administered on 09/09/18 08:23; Admin Dose 6 UNIT; Start 09/05/18 at 17:55 Insulin Glargine (Lantus) 17 units DAILY@0800 SC Last administered on 09/09/18 08:24; Admin Dose 17 UNITS; Start 09/06/18 at 08:00 DALLIN ADAMS NP Sep 09, 2018 10:28
[2018-09-09 11:53] VITALS: BP 118/64; PULSE 57; RESP 18
[2018-09-09 15:48] VITALS: BP 114/53; PULSE 60; RESP 18
--- NOTE | 2018-09-09 16:08 | CONS ---
Consult Date/Type/Reason Admit Date/Time Sep 01, 2018 at 19:14 Initial Consult Date 09/02/18 Type of Consultation: cv Requesting Provider: JAD SHIN NP Date/Time of Note DATE: 09/09/18 TIME: 16:01 Subjective Cardiology follow-up progress note Subjective: Patient continues to complain of shortness of breath. Telemetry was reviewed patient remains sinus rhythm. No chest pain or pressure Objective: General: no acute distress HEENT: NC/AT. pupils are equal. round. NECK: no stridor. CV: RRR. systolic murmur; no gallop or rubs. PULM: no wheezing or rhonchi. GI: SOFT, NT, ND, no rebound or guarding Extremity: trace B/L LE edema. no clubbing. neuro: awake and alert, OX3. Psych: calm and pleasant rectal: deferred Review of the old chart showed echocardiogram in 04/02/2018 showed: Mild concentric left ventricular hypertrophy. Moderate enlargement of left ventricle cavity. Severe global left ventricular systolic dysfunction. Ejection fraction is visually estimated at 20-25 %. Tissue Doppler/Mitral Doppler indices are consistent with restrictive physiology with markedly elevated left atrial pressure (Stage III-IV diastolic dysfunction). There is moderate enlargement of left atrium. Mild mitral leaflet calcification. Mild mitral annular calcification. Moderate to severe mitral valve regurgitation. No hemodynamically significant aortic stenosis by doppler. Aortic cusps appear mildly calcified. Trace aortic valve regurgitation. Normal appearance of the tricuspid valve. The estimated Peak RVSP is 22 mmHg. There is trace tricuspid regurgitation. Objective Vitals Vital Signs Date Temp Pulse Resp B/P (MAP) Pulse Ox O2 O2 Flow FiO2 Time Delivery Rate 09/09/18 97.5 60 18 114/53 18 Room Air 15:48 (73) 09/07/18 2.0 15:29 Intake and Output 09/08/18 09/08/18 09/09/18 1515:00 23:00 07:00 IntakeIntake Total 480 ml 480 ml 200 ml OutputOutput Total 300 ml 200 ml 400 ml BalanceBalance 180 ml 280 ml -200 ml Results/Medications Result Diagram: 09/09/18 0600 09/09/18 0600 Results 24 hrs Laboratory Tests Test 09/08/18 17:20 09/08/18 20:59 09/09/18 06:00 09/09/18 08:10 Bedside Glucose 156 113 102 White Blood Count 7.8 Red Blood Count 3.52 L Hemoglobin 8.7 L Hematocrit 28.5 L Mean Corpuscular 81.0 L Volume Mean Corpuscular 24.7 L Hemoglobin Mean Corpuscular 30.5 L Hemoglobin Concent Red Cell 16.1 H Distribution Width Platelet Count 268 Mean Platelet Volume 11.1 H Immature 0.400 Granulocytes % Neutrophils % 69.2 Lymphocytes % 11.6 L Monocytes % 13.9 H Eosinophils % 4.0 Basophils % 0.9 Nucleated Red Blood 0.0 Cells % Immature 0.030 Granulocytes # Neutrophils # 5.4 Lymphocytes # 0.9 Monocytes # 1.1 H Eosinophils # 0.3 Basophils # 0.1 Nucleated Red Blood 0.0 Cells # Sodium Level 138 Potassium Level 4.2 Chloride Level 101 Carbon Dioxide Level 27 Anion Gap 10 Blood Urea Nitrogen 97 H Creatinine 3.25 H Est Glomerular Filtrat Rate mL/min Glucose Level 92 Calcium Level 8.9 Phosphorus Level 5.8 H Magnesium Level 2.5 Test 09/09/18 11:46 Bedside Glucose 214 Home Meds Active Scripts Thiamine* (Thiamine*) 100 Mg Tablet, 100 MG PO DAILY for 30 Days, #30 TAB Prov:CHUY HORTON MD 04/01/18 Reported Medications Bumetanide* (Bumetanide*) 1 Mg Tablet, 1 MG PO BID, TAB 09/01/18 Liraglutide (Victoza 3-Donnie) 0.6 Mg/0.1 Ml Pen.injctr, 1.8 MG SQ BID, SYR 07/30/18 [place]-3 Acid Ethyl Esters (Lovaza) 1 Gm Capsule, 2 GM PO BID, CAP 07/30/18 Apixaban* (Eliquis*) 2.5 Mg Tablet, 2.5 MG PO BID, TAB 06/07/18 Carvedilol* (Carvedilol*) 6.25 Mg Tablet, 6.25 MG PO BID, #60 TAB 06/07/18 Hydralazine Hcl* (Hydralazine Hcl*) 100 Mg Tablet, 100 MG PO BID, #90 TAB 06/07/18 Isosorbide Mononitrate* (Isosorbide Mononitrate*) 30 Mg Tab.er.24h, 30 MG PO DAILY, TAB 03/20/18 Aspirin* (Aspirin* EC) 81 Mg Tablet.dr, 81 MG PO DAILY, TAB 03/04/18 Insulin Glargine,Hum.rec.anlog (Chhaya Wingviviane) 300 Unit/1 Ml Insuln.pen, 42 UNIT SQ QPM, EA 03/04/18 Atorvastatin* (Atorvastatin*) 40 Mg Tablet, 40 MG PO QHS, #30 TAB 03/04/18 Medications Current Medications IV Flush (NS 3 ml) 3 ml PER PROTOCOL IV ; Start 09/01/18 at 19:30 Ondansetron HCl (Zofran Inj) 4 mg Q6H PRN IV NAUSEA/VOMITING Last administered on 09/07/18at 12:10; Admin Dose 4 MG; Start 09/01/18 at 19:30 Acetaminophen (Tylenol Tab) 650 mg Q6H PRN PO .PAIN 1-3 OR TEMP; Start 09/01/18 at 19:30 Acetaminophen/ Hydrocodone Bitart ([place] (5/325)) 1 tab Q6H PRN PO .MOD PAIN 4- 6 Last administered on 09/07/18at 08:21; Admin Dose 1 TAB; Start 09/01/18 at 19:30 Morphine Sulfate (morphine) 2 mg Q4H PRN IV .SEVERE PAIN 7-10; Start 09/01/18 at 19:30 Docusate Sodium (Colace) 100 mg Q12H PRN PO .CONSTIPATION; Start 09/01/18 at 19:30 Magnesium Hydroxide (Milk Of Mag) 30 ml DAILY PRN PO .CONSTIPATION; Start 09/01/18 at 19:30 Lorazepam (Ativan) 0.5 mg Q6H PRN IV ANXIETY; Start 09/01/18 at 19:30 Albuterol/ Ipratropium (Duoneb) 3 ml Q4H RESP THERAPY PRN HHN SHORTNESS OF BREATH; Start 09/01/18 at 19:30 Hydralazine HCl (Apresoline) 10 mg Q6H PRN IV ELEVATED BLOOD PRESSURE; Start 09/01/18 at 19:30 Nitroglycerin (Nitroglycerin (Sl Tab) 0.4 Mg) 1 tab Q5M PRN SL ANGINA; Start 09/01/18 at 19:30 Apixaban (Eliquis) 2.5 mg BID PO Last administered on 09/09/18at 08:13; Admin Dose 2.5 MG; Start 09/01/18 at 21:00 Atorvastatin Calcium (Lipitor) 40 mg QHS PO Last administered on 09/08/18at 21:04; Admin Dose 40 MG; Start 09/01/18 at 21:00 Hydralazine HCl (Apresoline) 100 mg BID PO Last administered on 09/09/18 08:12; Admin Dose 100 MG; Start 09/01/18 at 21:00 Isosorbide Mononitrate (Imdur) 30 mg DAILY PO Last administered on 09/09/18 08:12; Admin Dose 30 MG; Start 09/02/18 at 09:00 Thiamine HCl (Vitamin B1) 100 mg DAILY PO Last administered on 09/09/18 08:13; Admin Dose 100 MG; Start 09/02/18 at 09:00 Fish Oil (Fish Oil) 2,000 mg BID PO Last administered on 09/09/18 08:12; Admin Dose 2,000 MG; Start 09/01/18 at 22:00 Diagnostic Test (Pha) (Accu-Chek) 1 ea 02 XX Last administered on 09/08/18at 02:16; Admin Dose 1 EA; Start 09/04/18 at 02:00 Insulin Aspart (Novolog Insulin Pen) NOVOLOG *MILD* ALGORITHM WITH MEALS BEDTIME SC Last administered on 09/09/18at 11:51; Admin Dose 2 UNIT; Start 09/03/18 at 11:50 Miscellaneous Information 1 ea NOTE XX ; Start 09/03/18 at 09:30 Glucose (Glutose) 15 gm Q15M PRN PO DECREASED GLUCOSE; Start 09/03/18 at 09:30 Glucose (Glutose) 22.5 gm Q15M PRN PO DECREASED GLUCOSE; Start 09/03/18 at 09:30 Dextrose (D50w Syringe) 25 ml Q15M PRN IV DECREASED GLUCOSE; Start 09/03/18 at 09:30 Dextrose (D50w Syringe) 50 ml Q15M PRN IV DECREASED GLUCOSE; Start 09/03/18 at 09:30 Glucagon (Glucagen) 1 mg Q15M PRN IM DECREASED GLUCOSE; Start 09/03/18 at 09:30 Glucose (Glutose) 15 gm Q15M PRN BUCCAL DECREASED GLUCOSE; Start 09/03/18 at 09:30 Carvedilol (Coreg) 12.5 mg BID PO Last administered on 09/09/18at 08:13; Admin Dose 12.5 MG; Start 09/03/18 at 21:00 Insulin Aspart (Novolog Insulin Pen) 6 unit WITH MEALS SC Last administered on 09/09/18at 11:51; Admin Dose 6 UNIT; Start 09/05/18 at 17:55 Insulin Glargine (Lantus) 17 units DAILY@0800 SC Last administered on 09/09/18at 08:24; Admin Dose 17 UNITS; Start 09/06/18 at 08:00 Assessment/Plan Hospital Course (Demo Recall) systolic congestive heart failure Cardiomyopathy with ejection fraction <25% Mild to moderate coronary artery disease left heart catheterization January 2016 History of ventricular tachycardia, with history of LifeVest Acute kidney injury CKD Hypertension Recommendation: Cont Coreg Continue hydralazine Isordil combination since patient is not able to tolerate ARB LOLY due to his renal failure Diuretics as tolerated in setting of CKD-being followed by renal Thank you for his referral. We will continue to follow along with you until Dr. Jackson returns on Tuesday MIRA LOZANO MD [facility] MIRA LOZANO MD Sep 09, 2018 16:08
--- NOTE | 2018-09-09 17:37 | CONS ---
Consult Date/Type/Reason Admit Date/Time Sep 01, 2018 at 19:14 Initial Consult Date 09/02/18 Type of Consultation: Pulm Requesting Provider: JAD SHIN NP Date/Time of Note DATE: 09/09/18 TIME: 17:36 Subjective no events overnight. +orthopnea Objective Vitals Vital Signs Date Temp Pulse Resp B/P (MAP) Pulse Ox O2 O2 Flow FiO2 Time Delivery Rate 09/09/18 97.5 60 18 114/53 18 Room Air 15:48 (73) 09/07/18 2.0 15:29 Intake and Output 09/08/18 09/08/18 09/09/18 1515:00 23:00 07:00 IntakeIntake Total 480 ml 480 ml 200 ml OutputOutput Total 300 ml 200 ml 400 ml BalanceBalance 180 ml 280 ml -200 ml Exam HEENT: Neck supple; no JVD; no LAD CVS: RRR, S1 and S2, 2/6 LIBIA CHEST: bibasilar rales ABD: Soft, NT, + BS EXT: No c/c; + edema Results/Medications Result Diagram: 09/09/18 0609/09/18 0600 Results 24 hrs Laboratory Tests Test 09/08/18 20:59 09/09/18 06:00 09/09/18 08:10 09/09/18 11:46 Bedside Glucose 113 102 214 White Blood Count 7.8 Red Blood Count 3.52 L Hemoglobin 8.7 L Hematocrit 28.5 L Mean Corpuscular 81.0 L Volume Mean Corpuscular 24.7 L Hemoglobin Mean Corpuscular 30.5 L Hemoglobin Concent Red Cell 16.1 H Distribution Width Platelet Count 268 Mean Platelet Volume 11.1 H Immature 0.400 Granulocytes % Neutrophils % 69.2 Lymphocytes % 11.6 L Monocytes % 13.9 H Eosinophils % 4.0 Basophils % 0.9 Nucleated Red Blood 0.0 Cells % Immature 0.030 Granulocytes # Neutrophils # 5.4 Lymphocytes # 0.9 Monocytes # 1.1 H Eosinophils # 0.3 Basophils # 0.1 Nucleated Red Blood 0.0 Cells # Sodium Level 138 Potassium Level 4.2 Chloride Level 101 Carbon Dioxide Level 27 Anion Gap 10 Blood Urea Nitrogen 97 H Creatinine 3.25 H Est Glomerular Filtrat Rate mL/min Glucose Level 92 Calcium Level 8.9 Phosphorus Level 5.8 H Magnesium Level 2.5 Test 09/09/18 17:17 Bedside Glucose 145 Home Meds Active Scripts Thiamine* (Thiamine*) 100 Mg Tablet, 100 MG PO DAILY for 30 Days, #30 TAB Prov:CHUY HORTON MD 04/01/18 Reported Medications Bumetanide* (Bumetanide*) 1 Mg Tablet, 1 MG PO BID, TAB 09/01/18 Liraglutide (Victoza 3-Donnie) 0.6 Mg/0.1 Ml Pen.injctr, 1.8 MG SQ BID, SYR 07/30/18 [place]-3 Acid Ethyl Esters (Lovaza) 1 Gm Capsule, 2 GM PO BID, CAP 07/30/18 Apixaban* (Eliquis*) 2.5 Mg Tablet, 2.5 MG PO BID, TAB 06/07/18 Carvedilol* (Carvedilol*) 6.25 Mg Tablet, 6.25 MG PO BID, #60 TAB 06/07/18 Hydralazine Hcl* (Hydralazine Hcl*) 100 Mg Tablet, 100 MG PO BID, #90 TAB 06/07/18 Isosorbide Mononitrate* (Isosorbide Mononitrate*) 30 Mg Tab.er.24h, 30 MG PO DAILY, TAB 03/20/18 Aspirin* (Aspirin* EC) 81 Mg Tablet.dr, 81 MG PO DAILY, TAB 03/04/18 Insulin Glargine,Hum.rec.anlog (Chhaya Bos[place]) 300 Unit/1 Ml Insuln.pen, 42 UNIT SQ QPM, EA 03/04/18 Atorvastatin* (Atorvastatin*) 40 Mg Tablet, 40 MG PO QHS, #30 TAB 03/04/18 Medications Current Medications IV Flush (NS 3 ml) 3 ml PER PROTOCOL IV ; Start 09/01/18 at 19:30 Ondansetron HCl (Zofran Inj) 4 mg Q6H PRN IV NAUSEA/VOMITING Last administered on 09/07/18at 12:10; Admin Dose 4 MG; Start 09/01/18 at 19:30 Acetaminophen (Tylenol Tab) 650 mg Q6H PRN PO .PAIN 1-3 OR TEMP; Start 09/01/18 at 19:30 Acetaminophen/ Hydrocodone Bitart ([place] (5/325)) 1 tab Q6H PRN PO .MOD PAIN 4- 6 Last administered on 09/07/18 08:21; Admin Dose 1 TAB; Start 09/01/18 at 19:30 Morphine Sulfate (morphine) 2 mg Q4H PRN IV .SEVERE PAIN 7-10; Start 09/01/18 at 19:30 Docusate Sodium (Colace) 100 mg Q12H PRN PO .CONSTIPATION; Start 09/01/18 at 19:30 Magnesium Hydroxide (Milk Of Mag) 30 ml DAILY PRN PO .CONSTIPATION; Start 09/01/18 at 19:30 Lorazepam (Ativan) 0.5 mg Q6H PRN IV ANXIETY; Start 09/01/18 at 19:30 Albuterol/ Ipratropium (Duoneb) 3 ml Q4H RESP THERAPY PRN HHN SHORTNESS OF BREATH; Start 09/01/18 at 19:30 Hydralazine HCl (Apresoline) 10 mg Q6H PRN IV ELEVATED BLOOD PRESSURE; Start 09/01/18 at 19:30 Nitroglycerin (Nitroglycerin (Sl Tab) 0.4 Mg) 1 tab Q5M PRN SL ANGINA; Start 09/01/18 at 19:30 Apixaban (Eliquis) 2.5 mg BID PO Last administered on 09/09/18 08:13; Admin Dose 2.5 MG; Start 09/01/18 at 21:00 Atorvastatin Calcium (Lipitor) 40 mg QHS PO Last administered on 09/08/18 21:04; Admin Dose 40 MG; Start 09/01/18 at 21:00 Hydralazine HCl (Apresoline) 100 mg BID PO Last administered on 09/09/18 08:12; Admin Dose 100 MG; Start 09/01/18 at 21:00 Isosorbide Mononitrate (Imdur) 30 mg DAILY PO Last administered on 09/09/18 08:12; Admin Dose 30 MG; Start 09/02/18 at 09:00 Thiamine HCl (Vitamin B1) 100 mg DAILY PO Last administered on 09/09/18 08:13; Admin Dose 100 MG; Start 09/02/18 at 09:00 Fish Oil (Fish Oil) 2,000 mg BID PO Last administered on 09/09/18 08:12; Admin Dose 2,000 MG; Start 09/01/18 at 22:00 Diagnostic Test (Pha) (Accu-Chek) 1 ea 02 XX Last administered on 09/08/18at 02:16; Admin Dose 1 EA; Start 09/04/18 at 02:00 Insulin Aspart (Novolog Insulin Pen) NOVOLOG *MILD* ALGORITHM WITH MEALS BEDTIME SC Last administered on 09/09/18at 17:22; Admin Dose 1 UNIT; Start 09/03/18 at 11:50 Miscellaneous Information 1 ea NOTE XX ; Start 09/03/18 at 09:30 Glucose (Glutose) 15 gm Q15M PRN PO DECREASED GLUCOSE; Start 09/03/18 at 09:30 Glucose (Glutose) 22.5 gm Q15M PRN PO DECREASED GLUCOSE; Start 09/03/18 at 09:30 Dextrose (D50w Syringe) 25 ml Q15M PRN IV DECREASED GLUCOSE; Start 09/03/18 at 09:30 Dextrose (D50w Syringe) 50 ml Q15M PRN IV DECREASED GLUCOSE; Start 09/03/18 at 09:30 Glucagon (Glucagen) 1 mg Q15M PRN IM DECREASED GLUCOSE; Start 09/03/18 at 09:30 Glucose (Glutose) 15 gm Q15M PRN BUCCAL DECREASED GLUCOSE; Start 09/03/18 at 09:30 Carvedilol (Coreg) 12.5 mg BID PO Last administered on 09/09/18at 08:13; Admin Dose 12.5 MG; Start 09/03/18 at 21:00 Insulin Aspart (Novolog Insulin Pen) 6 unit WITH MEALS SC Last administered on 09/09/18at 17:23; Admin Dose 6 UNIT; Start 09/05/18 at 17:55 Insulin Glargine (Lantus) 17 units DAILY@0800 SC Last administered on 09/09/18at 08:24; Admin Dose 17 UNITS; Start 09/06/18 at 08:00 Assessment/Plan Assessment/Plan (Daily) IMP: 1. ADHF 2. Renal insufficiency. 3. Type 1 diabetes. RECS: 1. Management as per cardiology DEMETRIO VERMA MD Sep 09, 2018 17:37
[2018-09-09 20:00] VITALS: BP 136/64; PULSE 59; PULSE 62; RESP 18
[2018-09-09] MEDS: ATORVASTATIN 40 MG TAB PO SCH (20:14)
[2018-09-10] VITALS: BP 136/73; PULSE 61; PULSE 65; RESP 18
[2018-09-10] MEDS: ACCU-CHEK XX SCH (01:46)
[2018-09-10 04:00] VITALS: BP 138/69; PULSE 61; PULSE 62; RESP 17
[2018-09-10 07:44] VITALS: BP 147/81; PULSE 62; RESP 16
[2018-09-10] MEDS: INSULIN ASPART [NOVOLOG] 3 ML PEN SC SCH ×7 (07:46→20:03)
[2018-09-10] MEDS: INSULIN GLARGINE [LANTus] (100 UNITS/ML) SYG SC SCH (07:51)
[2018-09-10] MEDS: APIXABAN 5 MG TABLET PO SCH ×2 (08:21→20:02)
[2018-09-10] MEDS: THIAMINE 100 MG TAB PO SCH (08:21)
[2018-09-10] MEDS: FISH OIL 1,000 MG CAP PO SCH ×2 (08:22→20:01)
[2018-09-10] MEDS: ISOSORBIDE MONONITRATE(SR)30 MG TAB PO SCH (08:22)
--- NOTE | 2018-09-10 09:14 | PN ---
Date/Time of Note Date/Time of Note DATE: 09/10/18 TIME: 09:12 Assessment/Plan VTE Prophylaxis Risk score (from Ns)>0 risk: 2 SCD applied (from Ns): Yes Pharmacological prophylaxis: apixaban Lines/Catheters [facility] [place] Urinary Cath still in place: No Assessment/Plan Hospital Course SUBJECTIVE: Denies any chest pain. OBJECTIVE: Physical Exam General: Obese 72 year-old male lying in bed in mild respiratory distress. HEENT: Normocephalic, atraumatic. Eyes: Anicteric sclerae, conjunctivae clear. ENT: Nasal septum midline, oral mucosa moist. Neck supple. JVD noticed. Respiratory: Bilaterally diminished breath sounds. Bilateral rales at the bases. Cardiovascular: S1, S2 heard. Regular rate and rhythm. Abdomen: Soft, nontender, and nondistended. Bowel sounds positive in all 4 quadrants. Genitourinary: Deferred. Extremities: No cyanosis, no clubbing. Trace B/L pedal edema. Peripheral pulses palpable. Neurologic: Cranial nerves II through XII grossly intact. The patient is awake, alert, and oriented. Skin: Normal skin turgor. No skin rashes Labs & Vitals per chart ASSESSMENT & PLAN This is a 72-year-old male with past medical history of essential hypertension, CAD status post coronary artery stenting, type 2 diabetes mellitus, cardiomyopathy (fitted with LifeVest on 04/03/2018), sustained VT (on 03/22/2018), benign prostatic hypertrophy, gout, and chronic kidney disease who came to the emergency room with chief complaint of chest pain and dyspnea. 1. Chest pain. ACS ruled out. Being followed by cardiology. 2. Congestive heart failure exacerbation. Acute on chronic systolic dysfunction. Continue diuresis while carefully monitoring renal function (diuretics on hold). 3. History of sustained VT on 03/22/2018. Status post LifeVest placement in March 2018. Currently has no LifeVest in place. 4. Cardiomyopathy. Ejection fraction of 30%. Continue beta-blockers and nitrates. No ACEI/ARB because of CKD stage IV. 5. Hypertension. Continue antihypertensives. 6. Type 2 diabetes mellitus. The patient will be continued on sliding scale insulin along with pre-meal insulin and basal insulin. Latest hemoglobin A1c 9.7. 7. CAD. Status post coronary artery stenting. The patient will be continued on antiplatelet therapy. 8. Chronic kidney disease. Nephrotoxic drugs will be used with caution. The patient's BUN and creatinine will be monitored closely. Nephrology follow up. 9. Dyslipidemia. Continue statins and fish oil. 10. Fluids, electrolytes, and nutrition. Carbohydrate controlled diet. 11. DVT prophylaxis. Factor Xa inhibitors. 12. Plan. Resume diuretics when appropriate. Await clinical improvement before discharging the patient home. The patient was seen in collaboration with Dr. Allen. Result Diagram: 09/10/18 0620 09/10/18 0620 Results 24hrs Laboratory Tests Test 09/09/18 11:46 09/09/18 17:17 09/09/18 20:19 09/10/18 06:20 Bedside Glucose 214 145 120 White Blood Count 8.0 Red Blood Count 3.32 L Hemoglobin 8.2 L Hematocrit 26.4 L Mean Corpuscular 79.5 L Volume Mean Corpuscular 24.7 L Hemoglobin Mean Corpuscular 31.1 L Hemoglobin Concent Red Cell 16.2 H Distribution Width Platelet Count 260 Mean Platelet Volume 11.0 H Immature 0.300 Granulocytes % Neutrophils % 72.3 Lymphocytes % 8.7 L Monocytes % 14.1 H Eosinophils % 3.8 Basophils % 0.8 Nucleated Red Blood 0.0 Cells % Immature 0.020 Granulocytes # Neutrophils # 5.8 Lymphocytes # 0.7 L Monocytes # 1.1 H Eosinophils # 0.3 Basophils # 0.1 Nucleated Red Blood 0.0 Cells # Sodium Level 135 Potassium Level 3.7 Chloride Level 99 Carbon Dioxide Level 26 Anion Gap 10 Blood Urea Nitrogen 103 H Creatinine 3.15 H Est Glomerular Filtrat Rate mL/min Glucose Level 78 Calcium Level 8.8 Phosphorus Level 5.4 H Magnesium Level 2.6 H Test 09/10/18 07:44 Bedside Glucose 98 Exam/Review of Systems Exam Vitals Vital Signs Date Temp Pulse Resp B/P (MAP) Pulse Ox O2 O2 Flow FiO2 Time Delivery Rate 09/10/18 97.6 62 16 147/81 95 Room Air 07:44 (103) 09/10/18 2.0 05:58 Intake and Output 09/09/18 09/09/18 09/10/18 1515:00 23:00 07:00 IntakeIntake Total 560 ml 1620 ml 120 ml OutputOutput Total 700 ml 1000 ml BalanceBalance 560 ml 920 ml -880 ml Results Results 24hrs Laboratory Tests Test 09/09/18 11:46 09/09/18 17:17 09/09/18 20:19 09/10/18 06:20 Bedside Glucose 214 145 120 White Blood Count 8.0 Red Blood Count 3.32 L Hemoglobin 8.2 L Hematocrit 26.4 L Mean Corpuscular 79.5 L Volume Mean Corpuscular 24.7 L Hemoglobin Mean Corpuscular 31.1 L Hemoglobin Concent Red Cell 16.2 H Distribution Width Platelet Count 260 Mean Platelet Volume 11.0 H Immature 0.300 Granulocytes % Neutrophils % 72.3 Lymphocytes % 8.7 L Monocytes % 14.1 H Eosinophils % 3.8 Basophils % 0.8 Nucleated Red Blood 0.0 Cells % Immature 0.020 Granulocytes # Neutrophils # 5.8 Lymphocytes # 0.7 L Monocytes # 1.1 H Eosinophils # 0.3 Basophils # 0.1 Nucleated Red Blood 0.0 Cells # Sodium Level 135 Potassium Level 3.7 Chloride Level 99 Carbon Dioxide Level 26 Anion Gap 10 Blood Urea Nitrogen 103 H Creatinine 3.15 H Est Glomerular Filtrat Rate mL/min Glucose Level 78 Calcium Level 8.8 Phosphorus Level 5.4 H Magnesium Level 2.6 H Test 09/10/18 07:44 Bedside Glucose 98 Medications Medication Current Medications IV Flush (NS 3 ml) 3 ml PER PROTOCOL IV ; Start 09/01/18 at 19:30 Ondansetron HCl (Zofran Inj) 4 mg Q6H PRN IV NAUSEA/VOMITING Last administered on 09/07/18at 12:10; Admin Dose 4 MG; Start 09/01/18 at 19:30 Acetaminophen (Tylenol Tab) 650 mg Q6H PRN PO .PAIN 1-3 OR TEMP; Start 09/01/18 at 19:30 Acetaminophen/ Hydrocodone Bitart ([place] (5/325)) 1 tab Q6H PRN PO .MOD PAIN 4- 6 Last administered on 09/07/18at 08:21; Admin Dose 1 TAB; Start 09/01/18 at 19:30 Morphine Sulfate (morphine) 2 mg Q4H PRN IV .SEVERE PAIN 7-10; Start 09/01/18 at 19:30 Docusate Sodium (Colace) 100 mg Q12H PRN PO .CONSTIPATION; Start 09/01/18 at 19:30 Magnesium Hydroxide (Milk Of Mag) 30 ml DAILY PRN PO .CONSTIPATION; Start 08/14 11/02 at 19:30 Lorazepam (Ativan) 0.5 mg Q6H PRN IV ANXIETY Last administered on 09/09/18 23:11; Admin Dose 0.5 MG; Start 09/01/18 at 19:30 Albuterol/ Ipratropium (Duoneb) 3 ml Q4H RESP THERAPY PRN HHN SHORTNESS OF BREATH; Start 09/01/18 at 19:30 Hydralazine HCl (Apresoline) 10 mg Q6H PRN IV ELEVATED BLOOD PRESSURE; Start 09/01/18 at 19:30 Nitroglycerin (Nitroglycerin (Sl Tab) 0.4 Mg) 1 tab Q5M PRN SL ANGINA; Start 09/01/18 at 19:30 Apixaban (Eliquis) 2.5 mg BID PO Last administered on 09/10/18 08:21; Admin Dose 2.5 MG; Start 09/01/18 at 21:00 Atorvastatin Calcium (Lipitor) 40 mg QHS PO Last administered on 09/09/18 20:14; Admin Dose 40 MG; Start 09/01/18 at 21:00 Hydralazine HCl (Apresoline) 100 mg BID PO Last administered on 09/10/18 08:22; Admin Dose 100 MG; Start 09/01/18 at 21:00 Isosorbide Mononitrate (Imdur) 30 mg DAILY PO Last administered on 09/10/18 08:22; Admin Dose 30 MG; Start 09/02/18 at 09:00 Thiamine HCl (Vitamin B1) 100 mg DAILY PO Last administered on 09/10/18 08:21; Admin Dose 100 MG; Start 09/02/18 at 09:00 Fish Oil (Fish Oil) 2,000 mg BID PO Last administered on 09/10/18 08:22; Admin Dose 2,000 MG; Start 09/01/18 at 22:00 Diagnostic Test (Pha) (Accu-Chek) 1 ea 02 XX Last administered on 09/08/18 02:16; Admin Dose 1 EA; Start 09/04/18 at 02:00 Insulin Aspart (Novolog Insulin Pen) NOVOLOG *MILD* ALGORITHM WITH MEALS BEDTIME SC Last administered on 7/27/19at 17:22; Admin Dose 1 UNIT; Start 09/03/18 at 11:50 Miscellaneous Information 1 ea NOTE XX ; Start 09/03/18 at 09:30 Glucose (Glutose) 15 gm Q15M PRN PO DECREASED GLUCOSE; Start 09/03/18 at 09:30 Glucose (Glutose) 22.5 gm Q15M PRN PO DECREASED GLUCOSE; Start 09/03/18 at 09:30 Dextrose (D50w Syringe) 25 ml Q15M PRN IV DECREASED GLUCOSE; Start 09/03/18 at 09:30 Dextrose (D50w Syringe) 50 ml Q15M PRN IV DECREASED GLUCOSE; Start 09/03/18 at 09:30 Glucagon (Glucagen) 1 mg Q15M PRN IM DECREASED GLUCOSE; Start 09/03/18 at 09:30 Glucose (Glutose) 15 gm Q15M PRN BUCCAL DECREASED GLUCOSE; Start 09/03/18 at 09:30 Carvedilol (Coreg) 12.5 mg BID PO Last administered on 09/10/18at 08:22; Admin Dose 12.5 MG; Start 09/03/18 at 21:00 Insulin Aspart (Novolog Insulin Pen) 6 unit WITH MEALS SC Last administered on 09/10/18 07:51; Admin Dose 6 UNIT; Start 09/05/18 at 17:55 Insulin Glargine (Lantus) 17 units DAILY@0800 SC Last administered on 09/10/18 07:51; Admin Dose 17 UNITS; Start 09/06/18 at 08:00 DALLIN ADAMS NP Sep 10, 2018 09:14
[2018-09-10 12:15] VITALS: BP 132/63; PULSE 59; RESP 18
--- NOTE | 2018-09-10 13:33 | CONS ---
Consult Date/Type/Reason Admit Date/Time Sep 01, 2018 at 19:14 Initial Consult Date 09/02/18 Type of Consultation: neph Requesting Provider: JAD SHIN NP Date/Time of Note DATE: 09/10/18 TIME: 13:32 Subjective 72-year-old gentleman with past medical history of cardiomyopathy, EF 20%, type 1 diabetes, hypertension and dyslipidemia, nonsustained ventricular tachycardia, coronary artery disease, CKD. He presents to the hospital after noticing dyspnea and chest pain. The patient was in this hospital a month ago, seen by Dr. Ruiz. The patient had a similar presentation with a congestive heart failure exacerbation. The patient was noted to have a CHF exacerbation again and an x-ray with pleural effusion with hypertension on presentation. The patient was admitted with [id number] congestive heart failure exacerbation, type 1 diabetes, on insulin. Creatinine was noted to be 2.5. The patient has had previous history of CKD. The lowest creatinine on record was at 2.1. Discharged with a creatinine of 2.7. There has been no recent fevers, chills, nausea, vomiting, chest pain, shortness of breath with evidence of effusion. No fevers, chills, nausea, vomiting. The patient denies history of frequent urinary tract infections or kidney stones. Denies nocturia. The patient was described as having CKD presumably from diabetes. contiues good uo. held diuretic since tuesday. PHYSICAL EXAMINATION: HEENT: Normocephalic, atraumatic. Pupils equal and reactive to light. Oropharynx has moist mucous membranes. NECK: Supple. HEART: Regular rate and rhythm. LUNGS: clear breath sounds bilaterally. ABDOMEN: Soft, nontender, nondistended. Bowel sounds to auscultation. EXTREMITIES: No clubbing, cyanosis or edema. Objective Vitals Vital Signs Date Temp Pulse Resp B/P (MAP) Pulse Ox O2 O2 Flow FiO2 Time Delivery Rate 09/10/18 96.9 59 18 132/63 94 Room Air 12:15 (86) 09/10/18 2.0 05:58 Intake and Output 09/09/18 09/09/18 09/10/18 1515:00 23:00 07:00 IntakeIntake Total 560 ml 1620 ml 120 ml OutputOutput Total 700 ml 1000 ml BalanceBalance 560 ml 920 ml -880 ml Results/Medications Result Diagram: 09/10/18 0620 09/10/18 0620 Results 24 hrs Laboratory Tests Test 09/09/18 17:17 09/09/18 20:19 09/10/18 06:20 09/10/18 07:44 Bedside Glucose 145 120 98 White Blood Count 8.0 Red Blood Count 3.32 L Hemoglobin 8.2 L Hematocrit 26.4 L Mean Corpuscular 79.5 L Volume Mean Corpuscular 24.7 L Hemoglobin Mean Corpuscular 31.1 L Hemoglobin Concent Red Cell 16.2 H Distribution Width Platelet Count 260 Mean Platelet Volume 11.0 H Immature 0.300 Granulocytes % Neutrophils % 72.3 Lymphocytes % 8.7 L Monocytes % 14.1 H Eosinophils % 3.8 Basophils % 0.8 Nucleated Red Blood 0.0 Cells % Immature 0.020 Granulocytes # Neutrophils # 5.8 Lymphocytes # 0.7 L Monocytes # 1.1 H Eosinophils # 0.3 Basophils # 0.1 Nucleated Red Blood 0.0 Cells # Sodium Level 135 Potassium Level 3.7 Chloride Level 99 Carbon Dioxide Level 26 Anion Gap 10 Blood Urea Nitrogen 103 H Creatinine 3.15 H Est Glomerular Filtrat Rate mL/min Glucose Level 78 Calcium Level 8.8 Phosphorus Level 5.4 H Magnesium Level 2.6 H Test 09/10/18 11:59 Bedside Glucose 146 Home Meds Active Scripts Thiamine* (Thiamine*) 100 Mg Tablet, 100 MG PO DAILY for 30 Days, #30 TAB Prov:CHUY HORTON MD 04/01/18 Reported Medications Bumetanide* (Bumetanide*) 1 Mg Tablet, 1 MG PO BID, TAB 09/01/18 Liraglutide (Victoza 3-Donnie) 0.6 Mg/0.1 Ml Pen.injctr, 1.8 MG SQ BID, SYR 07/30/18 [place]-3 Acid Ethyl Esters (Lovaza) 1 Gm Capsule, 2 GM PO BID, CAP 07/30/18 Apixaban* (Eliquis*) 2.5 Mg Tablet, 2.5 MG PO BID, TAB 06/07/18 Carvedilol* (Carvedilol*) 6.25 Mg Tablet, 6.25 MG PO BID, #60 TAB 06/07/18 Hydralazine Hcl* (Hydralazine Hcl*) 100 Mg Tablet, 100 MG PO BID, #90 TAB 06/07/18 Isosorbide Mononitrate* (Isosorbide Mononitrate*) 30 Mg Tab.er.24h, 30 MG PO DAILY, TAB 03/20/18 Aspirin* (Aspirin* EC) 81 Mg Tablet.dr, 81 MG PO DAILY, TAB 03/04/18 Insulin Glargine,Hum.rec.anlog ([place]ur Solostar) 300 Unit/1 Ml Insuln.pen, 42 UNIT SQ QPM, EA 03/04/18 Atorvastatin* (Atorvastatin*) 40 Mg Tablet, 40 MG PO QHS, #30 TAB 03/04/18 Medications Current Medications IV Flush (NS 3 ml) 3 ml PER PROTOCOL IV ; Start 09/01/18 at 19:30 Ondansetron HCl (Zofran Inj) 4 mg Q6H PRN IV NAUSEA/VOMITING Last administered on 09/07/18at 12:10; Admin Dose 4 MG; Start 09/01/18 at 19:30 Acetaminophen (Tylenol Tab) 650 mg Q6H PRN PO .PAIN 1-3 OR TEMP; Start 09/01/18 at 19:30 Acetaminophen/ Hydrocodone Bitart ([place] (5/325)) 1 tab Q6H PRN PO .MOD PAIN 4- 6 Last administered on 09/07/18at 08:21; Admin Dose 1 TAB; Start 09/01/18 at 19:30 Morphine Sulfate (morphine) 2 mg Q4H PRN IV .SEVERE PAIN 7-10; Start 09/01/18 at 19:30 Docusate Sodium (Colace) 100 mg Q12H PRN PO .CONSTIPATION; Start 09/01/18 at 19:30 Magnesium Hydroxide (Milk Of Mag) 30 ml DAILY PRN PO .CONSTIPATION; Start 09/01/18 at 19:30 Lorazepam (Ativan) 0.5 mg Q6H PRN IV ANXIETY Last administered on 09/09/18at 23:11; Admin Dose 0.5 MG; Start 09/01/18 at 19:30 Albuterol/ Ipratropium (Duoneb) 3 ml Q4H RESP THERAPY PRN HHN SHORTNESS OF BREATH; Start 09/01/18 at 19:30 Hydralazine HCl (Apresoline) 10 mg Q6H PRN IV ELEVATED BLOOD PRESSURE; Start 09/01/18 at 19:30 Nitroglycerin (Nitroglycerin (Sl Tab) 0.4 Mg) 1 tab Q5M PRN SL ANGINA; Start 09/01/18 at 19:30 Apixaban (Eliquis) 2.5 mg BID PO Last administered on 09/10/18 08:21; Admin Dose 2.5 MG; Start 09/01/18 at 21:00 Atorvastatin Calcium (Lipitor) 40 mg QHS PO Last administered on 09/09/18 20:14; Admin Dose 40 MG; Start 09/01/18 at 21:00 Hydralazine HCl (Apresoline) 100 mg BID PO Last administered on 09/10/18 08:22; Admin Dose 100 MG; Start 09/01/18 at 21:00 Isosorbide Mononitrate (Imdur) 30 mg DAILY PO Last administered on 09/10/18 08:22; Admin Dose 30 MG; Start 09/02/18 at 09:00 Thiamine HCl (Vitamin B1) 100 mg DAILY PO Last administered on 09/10/18 08:21; Admin Dose 100 MG; Start 09/02/18 at 09:00 Fish Oil (Fish Oil) 2,000 mg BID PO Last administered on 09/10/18 08:22; Admin Dose 2,000 MG; Start 09/01/18 at 22:00 Diagnostic Test (Pha) (Accu-Chek) 1 ea 02 XX Last administered on 09/08/18 02:16; Admin Dose 1 EA; Start 09/04/18 at 02:00 Insulin Aspart (Novolog Insulin Pen) NOVOLOG *MILD* ALGORITHM WITH MEALS BEDTIME SC Last administered on 09/10/18at 12:16; Admin Dose 1 UNIT; Start 09/03/18 at 11:50 Miscellaneous Information 1 ea NOTE XX ; Start 09/03/18 at 09:30 Glucose (Glutose) 15 gm Q15M PRN PO DECREASED GLUCOSE; Start 09/03/18 at 09:30 Glucose (Glutose) 22.5 gm Q15M PRN PO DECREASED GLUCOSE; Start 09/03/18 at 09:30 Dextrose (D50w Syringe) 25 ml Q15M PRN IV DECREASED GLUCOSE; Start 09/03/18 at 09:30 Dextrose (D50w Syringe) 50 ml Q15M PRN IV DECREASED GLUCOSE; Start 09/03/18 at 09:30 Glucagon (Glucagen) 1 mg Q15M PRN IM DECREASED GLUCOSE; Start 09/03/18 at 09:30 Glucose (Glutose) 15 gm Q15M PRN BUCCAL DECREASED GLUCOSE; Start 09/03/18 at 09:30 Carvedilol (Coreg) 12.5 mg BID PO Last administered on 09/10/18at 08:22; Admin D ose 12.5 MG; Start 09/03/18 at 21:00 Insulin Aspart (Novolog Insulin Pen) 6 unit WITH MEALS SC Last administered on 09/10/18at 12:16; Admin Dose 6 UNIT; Start 09/05/18 at 17:55 Insulin Glargine (Lantus) 17 units DAILY@0800 SC Last administered on 09/10/18at 07:51; Admin Dose 17 UNITS; Start 09/06/18 at 08:00 Assessment/Plan Hospital Course (Demo Recall) 1. Acute kidney injury, nonoliguric on underlying CKD4. Labs today are slightly better off diuretics. - given previous history of cardiorenal syndrome, he may need to tolerate some azotemia to achieve euvolemia. Watch labs daily. -Urine studies show FENa <<1. still waiting on urine protein to quantify p roteinuria. - Imaging of kidney with isha. showed Echogenic atrophic left kidney. Cannot exclude prior infarct or intrinsic renal disease. There are 2 hypoechoic lesion arising from the left kidney, which are likely cysts. No hydronephrosis or nephrolithiasis. - All medications are dosed appropriately - continue monitor off diuretics. 2. Acute decompensated heart failure and chronic kidney disease. Continue current medical management. - hold diuretic for now. prior regimen bumex 1mg po bid. . 3. Anemia. Hemoglobin has decreased since previous admission. likely component of anemia of chronic kidney disease, likely benefit from Epogen fci. Iron saturation here was low. There may be a component of blood loss anemia. Check stool for occult blood. negative x1. iv fe with 3 dosed. 4. Type 1 diabetes, insulin adjust as needed. cont Victoza. 5. Dyslipidemia. Continue statin. 6. History of coronary artery disease, cardiac optimization. 7. Hypertension, controlled at present, may benefit from LOLY inhibitor once kidney function is known to be stable. COLE BLAKE MD Sep 10, 2018 13:33
--- NOTE | 2018-09-10 13:58 | CONS ---
Consult Date/Type/Reason Admit Date/Time Sep 01, 2018 at 19:14 Initial Consult Date 09/02/18 Type of Consultation: CV Requesting Provider: JAD SHIN NP Date/Time of Note DATE: 09/10/18 TIME: 13:51 Subjective Cardiology follow-up progress note Subjective: Patient continues to have shortness of breath but stable Telemetry was reviewed patient remains sinus rhythm. No chest pain or pressure Objective: General: no acute distress HEENT: NC/AT. pupils are equal. round. NECK: no stridor. CV: RRR. systolic murmur; no gallop or rubs. PULM: no wheezing or rhonchi. GI: SOFT, NT, ND, no rebound or guarding Extremity: trace B/L LE edema. no clubbing. neuro: awake and alert, . Psych: calm and pleasant rectal: deferred Review of the old chart showed echocardiogram in 04/02/2018 showed: Mild concentric left ventricular hypertrophy. Moderate enlargement of left ventricle cavity. Severe global left ventricular systolic dysfunction. Ejection fraction is visually estimated at 20-25 %. Tissue Doppler/Mitral Doppler indices are consistent with restrictive physiology with markedly elevated left atrial pressure (Stage III-IV diastolic dysfunction). There is moderate enlargement of left atrium. Mild mitral leaflet calcification. Mild mitral annular calcification. Moderate to severe mitral valve regurgitation. No hemodynamically significant aortic stenosis by doppler. Aortic cusps appear mildly calcified. Trace aortic valve regurgitation. Normal appearance of the tricuspid valve. The estimated Peak RVSP is 22 mmHg. There is trace tricuspid regurgitation. Objective Vitals Vital Signs Date Temp Pulse Resp B/P (MAP) Pulse Ox O2 O2 Flow FiO2 Time Delivery Rate 09/10/18 96.9 59 18 132/63 94 Room Air 12:15 (86) 09/10/18 2.0 05:58 Intake and Output 09/09/18 09/09/18 09/10/18 1515:00 23:00 07:00 IntakeIntake Total 560 ml 1620 ml 120 ml OutputOutput Total 700 ml 1000 ml BalanceBalance 560 ml 920 ml -880 ml Results/Medications Result Diagram: 09/10/18 0620 09/10/18 0620 Results 24 hrs Laboratory Tests Test 09/09/18 17:17 09/09/18 20:19 09/10/18 06:20 09/10/18 07:44 Bedside Glucose 145 120 98 White Blood Count 8.0 Red Blood Count 3.32 L Hemoglobin 8.2 L Hematocrit 26.4 L Mean Corpuscular 79.5 L Volume Mean Corpuscular 24.7 L Hemoglobin Mean Corpuscular 31.1 L Hemoglobin Concent Red Cell 16.2 H Distribution Width Platelet Count 260 Mean Platelet Volume 11.0 H Immature 0.300 Granulocytes % Neutrophils % 72.3 Lymphocytes % 8.7 L Monocytes % 14.1 H Eosinophils % 3.8 Basophils % 0.8 Nucleated Red Blood 0.0 Cells % Immature 0.020 Granulocytes # Neutrophils # 5.8 Lymphocytes # 0.7 L Monocytes # 1.1 H Eosinophils # 0.3 Basophils # 0.1 Nucleated Red Blood 0.0 Cells # Sodium Level 135 Potassium Level 3.7 Chloride Level 99 Carbon Dioxide Level 26 Anion Gap 10 Blood Urea Nitrogen 103 H Creatinine 3.15 H Est Glomerular Filtrat Rate mL/min Glucose Level 78 Calcium Level 8.8 Phosphorus Level 5.4 H Magnesium Level 2.6 H Test 09/10/18 11:59 Bedside Glucose 146 Home Meds Active Scripts Thiamine* (Thiamine*) 100 Mg Tablet, 100 MG PO DAILY for 30 Days, #30 TAB Prov:CHUY HORTON MD 04/01/18 Reported Medications Bumetanide* (Bumetanide*) 1 Mg Tablet, 1 MG PO BID, TAB 09/01/18 Liraglutide (Victoza 3-Donnie) 0.6 Mg/0.1 Ml Pen.injctr, 1.8 MG SQ BID, SYR 07/30/18 [place]-3 Acid Ethyl Esters (Lovaza) 1 Gm Capsule, 2 GM PO BID, CAP 07/30/18 Apixaban* (Eliquis*) 2.5 Mg Tablet, 2.5 MG PO BID, TAB 06/07/18 Carvedilol* (Carvedilol*) 6.25 Mg Tablet, 6.25 MG PO BID, #60 TAB 06/07/18 Hydralazine Hcl* (Hydralazine Hcl*) 100 Mg Tablet, 100 MG PO BID, #90 TAB 06/07/18 Isosorbide Mononitrate* (Isosorbide Mononitrate*) 30 Mg Tab.er.24h, 30 MG PO DAILY, TAB 03/20/18 Aspirin* (Aspirin* EC) 81 Mg Tablet.dr, 81 MG PO DAILY, TAB 03/04/18 Insulin Glargine,Hum.rec.anlog (Chhaya Wingviviane) 300 Unit/1 Ml Insuln.pen, 42 UNIT SQ QPM, EA 03/04/18 Atorvastatin* (Atorvastatin*) 40 Mg Tablet, 40 MG PO QHS, #30 TAB 03/04/18 Medications Current Medications IV Flush (NS 3 ml) 3 ml PER PROTOCOL IV ; Start 09/01/18 at 19:30 Ondansetron HCl (Zofran Inj) 4 mg Q6H PRN IV NAUSEA/VOMITING Last administered on 09/07/18at 12:10; Admin Dose 4 MG; Start 09/01/18 at 19:30 Acetaminophen (Tylenol Tab) 650 mg Q6H PRN PO .PAIN 1-3 OR TEMP; Start 09/01/18 at 19:30 Acetaminophen/ Hydrocodone Bitart ([place] (5/325)) 1 tab Q6H PRN PO .MOD PAIN 4- 6 Last administered on 09/07/18at 08:21; Admin Dose 1 TAB; Start 09/01/18 at 19:30 Morphine Sulfate (morphine) 2 mg Q4H PRN IV .SEVERE PAIN 7-10; Start 09/01/18 at 19:30 Docusate Sodium (Colace) 100 mg Q12H PRN PO .CONSTIPATION; Start 09/01/18 at 19:30 Magnesium Hydroxide (Milk Of Mag) 30 ml DAILY PRN PO .CONSTIPATION; Start 09/01/18 at 19:30 Lorazepam (Ativan) 0.5 mg Q6H PRN IV ANXIETY Last administered on 09/09/18at 23:11; Admin Dose 0.5 MG; Start 09/01/18 at 19:30 Albuterol/ Ipratropium (Duoneb) 3 ml Q4H RESP THERAPY PRN HHN SHORTNESS OF BREATH; Start 09/01/18 at 19:30 Hydralazine HCl (Apresoline) 10 mg Q6H PRN IV ELEVATED BLOOD PRESSURE; Start 09/01/18 at 19:30 Nitroglycerin (Nitroglycerin (Sl Tab) 0.4 Mg) 1 tab Q5M PRN SL ANGINA; Start 09/01/18 at 19:30 Apixaban (Eliquis) 2.5 mg BID PO Last administered on 09/10/18 08:21; Admin Dose 2.5 MG; Start 09/01/18 at 21:00 Atorvastatin Calcium (Lipitor) 40 mg QHS PO Last administered on 09/09/18 20:14; Admin Dose 40 MG; Start 09/01/18 at 21:00 Hydralazine HCl (Apresoline) 100 mg BID PO Last administered on 09/10/18 08:22 ; Admin Dose 100 MG; Start 09/01/18 at 21:00 Isosorbide Mononitrate (Imdur) 30 mg DAILY PO Last administered on 09/10/18 08:22; Admin Dose 30 MG; Start 09/02/18 at 09:00 Thiamine HCl (Vitamin B1) 100 mg DAILY PO Last administered on 09/10/18 08:21; Admin Dose 100 MG; Start 09/02/18 at 09:00 Fish Oil (Fish Oil) 2,000 mg BID PO Last administered on 09/10/18 08:22; Admin Dose 2,000 MG; Start 09/01/18 at 22:00 Diagnostic Test (Pha) (Accu-Chek) 1 ea 02 XX Last administered on 09/08/18 02:16; Admin Dose 1 EA; Start 09/04/18 at 02:00 Insulin Aspart (Novolog Insulin Pen) NOVOLOG *MILD* ALGORITHM WITH MEALS BEDTIME SC Last administered on 09/10/18 12:16; Admin Dose 1 UNIT; Start 09/03/18 at 11:50 Miscellaneous Information 1 ea NOTE XX ; Start 09/03/18 at 09:30 Glucose (Glutose) 15 gm Q15M PRN PO DECREASED GLUCOSE; Start 09/03/18 at 09:30 Glucose (Glutose) 22.5 gm Q15M PRN PO DECREASED GLUCOSE; Start 09/03/18 at 09:30 Dextrose (D50w Syringe) 25 ml Q15M PRN IV DECREASED GLUCOSE; Start 09/03/18 at 09:30 Dextrose (D50w Syringe) 50 ml Q15M PRN IV DECREASED GLUCOSE; Start 09/03/18 at 09:30 Glucagon (Glucagen) 1 mg Q15M PRN IM DECREASED GLUCOSE; Start 09/03/18 at 09:30 Glucose (Glutose) 15 gm Q15M PRN BUCCAL DECREASED GLUCOSE; Start 09/03/18 at 09:30 Carvedilol (Coreg) 12.5 mg BID PO Last administered on 09/10/18at 08:22; Admin Dose 12.5 MG; Start 09/03/18 at 21:00 Insulin Aspart (Novolog Insulin Pen) 6 unit WITH MEALS SC Last administered on 09/10/18at 12:16; Admin Dose 6 UNIT; Start 09/05/18 at 17:55 Insulin Glargine (Lantus) 17 units DAILY@0800 SC Last administered on 09/10/18at 07:51; Admin Dose 17 UNITS; Start 09/06/18 at 08:00 Assessment/Plan Hospital Course (Demo Recall) systolic congestive heart failure Cardiomyopathy with ejection fraction <25% Mild to moderate coronary artery disease left heart catheterization January 2016 History of ventricular tachycardia, with history of LifeVest Acute kidney injury CKD Hypertension anemia Recommendation: Cont Coreg Continue hydralazine/ Isordil combination since patient is not ON ARB LOLY due to his renal failure Diuretics as tolerated in setting of CKD-being followed by renal Thank you for his referral. We will continue to follow along with you until Dr. Jackson returns on Tuesday MIRA LOZANO MD [facility] MIRA LOZANO MD Sep 10, 2018 13:58
[2018-09-10 15:26] VITALS: BP 136/74; PULSE 62; RESP 20
--- NOTE | 2018-09-10 16:13 | CONS ---
Consult Date/Type/Reason Admit Date/Time Sep 01, 2018 at 19:14 Initial Consult Date 09/02/18 Type of Consultation: Pulm Requesting Provider: JAD SHIN NP Date/Time of Note DATE: 09/10/18 TIME: 16:12 Subjective No events overnight. Objective Vitals Vital Signs Date Temp Pulse Resp B/P (MAP) Pulse Ox O2 O2 Flow FiO2 Time Delivery Rate 09/10/18 97.6 62 20 136/74 92 Room Air 15:26 (94) 09/10/18 2.0 05:58 Intake and Output 09/09/18 09/09/18 09/10/18 1515:00 23:00 07:00 IntakeIntake Total 560 ml 1620 ml 120 ml OutputOutput Total 700 ml 1000 ml BalanceBalance 560 ml 920 ml -880 ml Exam HEENT: Neck supple; no JVD; no LAD CVS: RRR, S1 and S2, 2/6 LIBIA CHEST: bibasilar rales ABD: Soft, NT, + BS EXT: No c/c; + edema Results/Medications Result Diagram: 09/10/1861909/10/18 0620 Results 24 hrs Laboratory Tests Test 09/09/18 17:17 09/09/18 20:19 09/10/18 06:20 09/10/18 07:44 Bedside Glucose 145 120 98 White Blood Count 8.0 Red Blood Count 3.32 L Hemoglobin 8.2 L Hematocrit 26.4 L Mean Corpuscular 79.5 L Volume Mean Corpuscular 24.7 L Hemoglobin Mean Corpuscular 31.1 L Hemoglobin Concent Red Cell 16.2 H Distribution Width Platelet Count 260 Mean Platelet Volume 11.0 H Immature 0.300 Granulocytes % Neutrophils % 72.3 Lymphocytes % 8.7 L Monocytes % 14.1 H Eosinophils % 3.8 Basophils % 0.8 Nucleated Red Blood 0.0 Cells % Immature 0.020 Granulocytes # Neutrophils # 5.8 Lymphocytes # 0.7 L Monocytes # 1.1 H Eosinophils # 0.3 Basophils # 0.1 Nucleated Red Blood 0.0 Cells # Sodium Level 135 Potassium Level 3.7 Chloride Level 99 Carbon Dioxide Level 26 Anion Gap 10 Blood Urea Nitrogen 103 H Creatinine 3.15 H Est Glomerular Filtrat Rate mL/min Glucose Level 78 Calcium Level 8.8 Phosphorus Level 5.4 H Magnesium Level 2.6 H Test 09/10/18 11:59 Bedside Glucose 146 Home Meds Active Scripts Thiamine* (Thiamine*) 100 Mg Tablet, 100 MG PO DAILY for 30 Days, #30 TAB Prov:CHUY HORTON MD 04/01/18 Reported Medications Bumetanide* (Bumetanide*) 1 Mg Tablet, 1 MG PO BID, TAB 09/01/18 Liraglutide ([place] 3-Donnie) 0.6 Mg/0.1 Ml Pen.injctr, 1.8 MG SQ BID, SYR 07/30/18 [place]-3 Acid Ethyl Esters (Lovaza) 1 Gm Capsule, 2 GM PO BID, CAP 07/30/18 Apixaban* (Eliquis*) 2.5 Mg Tablet, 2.5 MG PO BID, TAB 06/07/18 Carvedilol* (Carvedilol*) 6.25 Mg Tablet, 6.25 MG PO BID, #60 TAB 06/07/18 Hydralazine Hcl* (Hydralazine Hcl*) 100 Mg Tablet, 100 MG PO BID, #90 TAB 06/07/18 Isosorbide Mononitrate* (Isosorbide Mononitrate*) 30 Mg Tab.er.24h, 30 MG PO DAILY, TAB 03/20/18 Aspirin* (Aspirin* EC) 81 Mg Tablet.dr, 81 MG PO DAILY, TAB 03/04/18 Insulin Glargine,Hum.rec.anlog (Chhaya [place]) 300 Unit/1 Ml Insuln.pen, 42 UNIT SQ QPM, EA 03/04/18 Atorvastatin* (Atorvastatin*) 40 Mg Tablet, 40 MG PO QHS, #30 TAB 03/04/18 Medications Current Medications IV Flush (NS 3 ml) 3 ml PER PROTOCOL IV ; Start 09/01/18 at 19:30 Ondansetron HCl (Zofran Inj) 4 mg Q6H PRN IV NAUSEA/VOMITING Last administered on 09/07/18at 12:10; Admin Dose 4 MG; Start 09/01/18 at 19:30 Acetaminophen (Tylenol Tab) 650 mg Q6H PRN PO .PAIN 1-3 OR TEMP; Start 09/01/18 at 19:30 Acetaminophen/ Hydrocodone Bitart ([place] (5/325)) 1 tab Q6H PRN PO .MOD PAIN 4- 6 Last administered on 09/07/18 08:21; Admin Dose 1 TAB; Start 09/01/18 at 19:30 Morphine Sulfate (morphine) 2 mg Q4H PRN IV .SEVERE PAIN 7-10; Start 09/01/18 at 19:30 Docusate Sodium (Colace) 100 mg Q12H PRN PO .CONSTIPATION; Start 09/01/18 at 19:30 Magnesium Hydroxide (Milk Of Mag) 30 ml DAILY PRN PO .CONSTIPATION; Start 09/01/18 at 19:30 Lorazepam (Ativan) 0.5 mg Q6H PRN IV ANXIETY Last administered on 09/09/18 23:11; Admin Dose 0.5 MG; Start 09/01/18 at 19:30 Albuterol/ Ipratropium (Duoneb) 3 ml Q4H RESP THERAPY PRN HHN SHORTNESS OF BREATH; Start 09/01/18 at 19:30 Hydralazine HCl (Apresoline) 10 mg Q6H PRN IV ELEVATED BLOOD PRESSURE; Start 09/01/18 at 19:30 Nitroglycerin (Nitroglycerin (Sl Tab) 0.4 Mg) 1 tab Q5M PRN SL ANGINA; Start 09/01/18 at 19:30 Apixaban (Eliquis) 2.5 mg BID PO Last administered on 09/10/18 08:21; Admin Dose 2.5 MG; Start 09/01/18 at 21:00 Atorvastatin Calcium (Lipitor) 40 mg QHS PO Last administered on 09/09/18 20:14; Admin Dose 40 MG; Start 09/01/18 at 21:00 Hydralazine HCl (Apresoline) 100 mg BID PO Last administered on 09/10/18 08:22; Admin Dose 100 MG; Start 09/01/18 at 21:00 Isosorbide Mononitrate (Imdur) 30 mg DAILY PO Last administered on 09/10/18 08:22; Admin Dose 30 MG; Start 09/02/18 at 09:00 Thiamine HCl (Vitamin B1) 100 mg DAILY PO Last administered on 09/10/18 08:21; Admin Dose 100 MG; Start 09/02/18 at 09:00 Fish Oil (Fish Oil) 2,000 mg BID PO Last administered on 09/10/18 08:22; Admin Dose 2,000 MG; Start 09/01/18 at 22:00 Diagnostic Test (Pha) (Accu-Chek) 1 ea 02 XX Last administered on 09/08/18at 02:16; Admin Dose 1 EA; Start 09/04/18 at 02:00 Insulin Aspart (Novolog Insulin Pen) NOVOLOG *MILD* ALGORITHM WITH MEALS BEDTIME SC Last administered on 09/10/18 12:16; Admin Dose 1 UNIT; Start 09/03/18 at 11:50 Miscellaneous Information 1 ea NOTE XX ; Start 09/03/18 at 09:30 Glucose (Glutose) 15 gm Q15M PRN PO DECREASED GLUCOSE; Start 09/03/18 at 09:30 Glucose (Glutose) 22.5 gm Q15M PRN PO DECREASED GLUCOSE; Start 09/03/18 at 09:30 Dextrose (D50w Syringe) 25 ml Q15M PRN IV DECREASED GLUCOSE; Start 09/03/18 at 09:30 Dextrose (D50w Syringe) 50 ml Q15M PRN IV DECREASED GLUCOSE; Start 09/03/18 at 09:30 Glucagon (Glucagen) 1 mg Q15M PRN IM DECREASED GLUCOSE; Start 09/03/18 at 09:30 Glucose (Glutose) 15 gm Q15M PRN BUCCAL DECREASED GLUCOSE; Start 09/03/18 at 09:30 Carvedilol (Coreg) 12.5 mg BID PO Last administered on 09/10/18 08:22; Admin Dose 12.5 MG; Start 09/03/18 at 21:00 Insulin Aspart (Novolog Insulin Pen) 6 unit WITH MEALS SC Last administered on 09/10/18at 12:16; Admin Dose 6 UNIT; Start 09/05/18 at 17:55 Insulin Glargine (Lantus) 17 units DAILY@0800 SC Last administered on 09/10/18at 07:51; Admin Dose 17 UNITS; Start 09/06/18 at 08:00 Assessment/Plan Assessment/Plan (Daily) IMP: 1. ADHF 2. Renal insufficiency. 3. Type 1 diabetes. RECS: 1. Diuresis as per CV 2. follow RF 3. Strict I/O's DEMETRIO VERMA MD Sep 10, 2018 16:13
[2018-09-10 20:00] VITALS: BP 137/66; PULSE 60; RESP 19
[2018-09-10] MEDS: ATORVASTATIN 40 MG TAB PO SCH (20:02)
[2018-09-11] VITALS: BP 134/76; PULSE 65; RESP 18
[2018-09-11] MEDS: ACCU-CHEK XX SCH (02:00)
[2018-09-11 04:00] VITALS: BP 136/79; PULSE 59; RESP 19
[2018-09-11] MEDS: HYDROCODONE/APAP (5/325) TAB PO PRN (06:21)
[2018-09-11 07:37] VITALS: BP 179/74; PULSE 56; RESP 18
[2018-09-11] MEDS: INSULIN ASPART [NOVOLOG] 3 ML PEN SC SCH ×7 (07:55→21:00)
[2018-09-11] MEDS: FISH OIL 1,000 MG CAP PO SCH ×2 (08:28→21:08)
[2018-09-11] MEDS: APIXABAN 5 MG TABLET PO SCH ×2 (08:29→21:08)
[2018-09-11] MEDS: THIAMINE 100 MG TAB PO SCH (08:29)
[2018-09-11] MEDS: ISOSORBIDE MONONITRATE(SR)30 MG TAB PO SCH (08:29)
[2018-09-11] MEDS: INSULIN GLARGINE [LANTus] (100 UNITS/ML) SYG SC SCH (08:39)
--- NOTE | 2018-09-11 09:09 | PN ---
DATE: 09/11/2018 SUBJECTIVE: The patient is clinically stable. Continues to complain about some mild shortness of br eath. The patient's urinary output is adequate. No other events noted. No hemoptysis, hematemesis, hematochezia. OBJECTIVE: VITAL SIGNS: Blood pressure is 106/79, respiration 18, pulse 90, temperature 97.9. HEENT: Head is normocephalic. NECK: Supple. HEART: Regular rate. LUNGS: Show diminished breath sounds at the base. ABDOMEN: Soft, nontender to palpation without rebound or guarding. EXTREMITIES: Negative for clubbing, cyanosis, no edema. DERMATOLOGIC: No rashes. MUSCULOSKELETAL: No joint effusion. NEUROLOGIC: No change in exam. MEDICATIONS: Have been reviewed. LABORATAORY STUDIES: Have been reviewed. IMAGING STUDIES: Have been reviewed. ASSESSMENT AND PLAN: 1. Nonoliguric acute kidney injury on top of chronic kidney disease stage IV with previous baseline creatinine around 2.53. The patient's renal functions near baseline. The patient does have signific ant azotemia likely due to diuretic therapy. The patient's diuretics have been held. At this point, to continue respiratory care and also the etiology of current acute kidney injury is likely secondar y to hemodynamics and possible cardiorenal syndrome. 2. Anemia. Continue to monitor hemoglobin and hematocrit levels. Will give Epogen as needed. 3. Mineral bone disorder, monitor calcium and phosphorus levels. 4. Decompensated heart failure. The patient appears euvolemic on exam. Jugular venous distension i s not elevated. Continue to hold off diuretics. 5. Shortness of breath. Unclear if this is due to congestive heart failure, possible reactive airwa y disease. Continue to monitor. 6. Diabetes. 7. Hyperlipidemia. Continue statin therapy. 8. History of coronary artery disease. 9. Hypertension. Continue blood pressure regimen, avoid hypotensives, defer any LOLY inhibitor and A RB at this time in the setting of acute kidney injury. 9. Arrhythmia. Continue medical management. Dictated By: CHRISTOPHER MARIO DO NR/NTS Conf#: [id number] DID#: [id number] CC: DALILA TAVERAS MD;*EndCC*
[2018-09-11 11:13] VITALS: BP 103/58; PULSE 56; RESP 17
--- NOTE | 2018-09-11 12:08 | CONS ---
Consult Date/Type/Reason Admit Date/Time Sep 01, 2018 at 19:14 Initial Consult Date 09/02/18 Type of Consult Pulmonary Requesting Provider: JAD SHIN NP Date/Time of Note DATE: 09/11/18 TIME: 12:06 Subjective No significant changes. Mostly bedbound. Objective Vital Signs Date Temp Pulse Resp B/P (MAP) Pulse Ox O2 O2 Flow FiO2 Time Delivery Rate 09/11/18 98.8 56 17 103/58 92 11:13 (73) 09/10/18 Room Air 15:26 09/10/18 2.0 05:58 Intake and Output 09/10/18 09/10/18 09/11/18 1515:00 23:00 07:00 IntakeIntake Total 680 ml 390 ml OutputOutput Total 800 ml 1000 ml BalanceBalance 680 ml -410 ml -1000 ml Exam GENERAL: Elderly appearing gentleman appears comfortable at rest VITAL SIGNS: per chart NECK: Supple. No JVD or lymphadenopathy. CARDIAC EXAM: S1, S2. No added sounds or murmurs. CHEST: Diminished air entry bilaterally ABDOMEN: Soft, nontender. No guarding or rebound. EXTREMITIES: No cyanosis, clubbing or edema. NEUROLOGIC: Generalized weakness. No focal deficits. Vent Setting Fraction of Inspired Oxygen pe: 27 Results/Medications Result Diagram: 09/11/18 0530 09/11/18 0530 Results 24 hrs Laboratory Tests Test 09/10/18 16:56 09/10/18 20:01 09/11/18 05:30 09/11/18 08:27 Bedside Glucose 123 157 140 White Blood Count 6.6 Red Blood Count 3.08 L Hemoglobin 7.7 L Hematocrit 24.5 L Mean Corpuscular 79.5 L Volume Mean Corpuscular 25.0 L Hemoglobin Mean Corpuscular 31.4 L Hemoglobin Concent Red Cell 16.5 H Distribution Width Platelet Count 242 Mean Platelet Volume 10.8 H Immature 0.500 H Granulocytes % Neutrophils % 66.4 Lymphocytes % 15.2 Monocytes % 12.0 H Eosinophils % 5.0 Basophils % 0.9 Nucleated Red Blood 0.0 Cells % Immature 0.030 Granulocytes # Neutrophils # 4.4 Lymphocytes # 1.0 Monocytes # 0.8 Eosinophils # 0.3 Basophils # 0.1 Nucleated Red Blood 0.0 Cells # Sodium Level 138 Potassium Level 3.8 Chloride Level 103 Carbon Dioxide Level 25 Anion Gap 10 Blood Urea Nitrogen 102 H Creatinine 2.64 H Est Glomerular Filtrat Rate mL/min Glucose Level 120 # Calcium Level 8.4 Phosphorus Level 5.6 H Magnesium Level 2.7 H Medications Current Medications IV Flush (NS 3 ml) 3 ml PER PROTOCOL IV ; Start 09/01/18 at 19:30 Ondansetron HCl (Zofran Inj) 4 mg Q6H PRN IV NAUSEA/VOMITING Last administered on 09/07/18 12:10; Admin Dose 4 MG; Start 09/01/18 at 19:30 Acetaminophen (Tylenol Tab) 650 mg Q6H PRN PO .PAIN 1-3 OR TEMP; Start 09/01/18 at 19:30 Acetaminophen/ Hydrocodone Bitart ([place] (5/325)) 1 tab Q6H PRN PO .MOD PAIN 4- 6 Last administered on 09/11/18 06:21; Admin Dose 1 TAB; Start 09/01/18 at 19:30 Morphine Sulfate (morphine) 2 mg Q4H PRN IV .SEVERE PAIN 7-10; Start 09/01/18 at 19:30 Docusate Sodium (Colace) 100 mg Q12H PRN PO .CONSTIPATION; Start 09/01/18 at 19:30 Magnesium Hydroxide (Milk Of Mag) 30 ml DAILY PRN PO .CONSTIPATION; Start 09/01/18 at 19:30 Lorazepam (Ativan) 0.5 mg Q6H PRN IV ANXIETY Last administered on 09/09/18at 23:11; Admin Dose 0.5 MG; Start 09/01/18 at 19:30 Albuterol/ Ipratropium (Duoneb) 3 ml Q4H RESP THERAPY PRN HHN SHORTNESS OF BREATH; Start 09/01/18 at 19:30 Hydralazine HCl (Apresoline) 10 mg Q6H PRN IV ELEVATED BLOOD PRESSURE; Start 09/01/18 at 19:30 Nitroglycerin (Nitroglycerin (Sl Tab) 0.4 Mg) 1 tab Q5M PRN SL ANGINA; Start 09/01/18 at 19:30 Apixaban (Eliquis) 2.5 mg BID PO Last administered on 09/11/18 08:29; Admin Dose 2.5 MG; Start 09/01/18 at 21:00 Atorvastatin Calcium (Lipitor) 40 mg QHS PO Last administered on 09/10/18 20:02; Admin Dose 40 MG; Start 09/01/18 at 21:00 Hydralazine HCl (Apresoline) 100 mg BID PO Last administered on 09/11/18 08:29; Admin Dose 100 MG; Start 09/01/18 at 21:00 Isosorbide Mononitrate (Imdur) 30 mg DAILY PO Last administered on 09/11/18 08:29; Admin Dose 30 MG; Start 09/02/18 at 09:00 Thiamine HCl (Vitamin B1) 100 mg DAILY PO Last administered on 09/11/18 08:29; Admin Dose 100 MG; Start 09/02/18 at 09:00 Fish Oil (Fish Oil) 2,000 mg BID PO Last administered on 09/11/18 08:28; Admin Dose 2,000 MG; Start 09/01/18 at 22:00 Diagnostic Test (Pha) (Accu-Chek) 1 ea 02 XX Last administered on 09/08/18 02 :16; Admin Dose 1 EA; Start 09/04/18 at 02:00 Insulin Aspart (Novolog Insulin Pen) NOVOLOG *MILD* ALGORITHM WITH MEALS BEDTIME SC Last administered on 09/10/18 12:16; Admin Dose 1 UNIT; Start 09/03 at 11:50 Miscellaneous Information 1 ea NOTE XX ; Start 09/03/18 at 09:30 Glucose (Glutose) 15 gm Q15M PRN PO DECREASED GLUCOSE; Start 09/03/18 at 09:30 Glucose (Glutose) 22.5 gm Q15M PRN PO DECREASED GLUCOSE; Start 09/03/18 at 09:30 Dextrose (D50w Syringe) 25 ml Q15M PRN IV DECREASED GLUCOSE; Start 09/03/18 at 09:30 Dextrose (D50w Syringe) 50 ml Q15M PRN IV DECREASED GLUCOSE; Start 09/03/18 at 09:30 Glucagon (Glucagen) 1 mg Q15M PRN IM DECREASED GLUCOSE; Start 09/03/18 at 09:30 Glucose (Glutose) 15 gm Q15M PRN BUCCAL DECREASED GLUCOSE; Start 09/03/18 at 09:30 Carvedilol (Coreg) 12.5 mg BID PO Last administered on 09/11/18 08:29; Admin Dose 12.5 MG; Start 09/03/18 at 21:00 Insulin Aspart (Novolog Insulin Pen) 6 unit WITH MEALS SC Last administered on 09/11/18at 08:39; Admin Dose 6 UNIT; Start 09/05/18 at 17:55 Insulin Glargine (Lantus) 17 units DAILY@0800 SC Last administered on 09/11/18at 08:39; Admin Dose 17 UNITS; Start 09/06/18 at 08:00 Assessment/Plan Hospital Course (Demo Recall) IMP: 1. ADHF 2. Renal insufficiency. 3. Type 1 diabetes. RECS: 1. Diuresis as per CV 2. follow RF 3. Strict I/O's snf CINTIA Montalvo MD, [facility] Sep 11, 2018 12:08
--- NOTE | 2018-09-11 13:17 | CONS ---
Assessment/Plan Cardiology NYHA: IV Heart Failure Type: Acute on Chronic Heart Failure Type: Both Assessment/Plan Assessment/Plan (Daily) systolic congestive heart failure Cardiomyopathy with ejection fraction <25% Mild to moderate coronary artery disease left heart catheterization January 2016 History of ventricular tachycardia, with history of LifeVest Acute kidney injury CKD Hypertension anemia Recommendation: Cont Coreg Continue hydralazine/ Isordil combination since patient is not ON ARB LOLY due to his renal failure Diuretics as tolerated in setting of CKD-being followed by renal Consultation Date/Type/Reason Admit Date/Time Sep 01, 2018 at 19:14 Initial Consult Date 09/02/18 Type of Consult Cardiology Requesting Provider: JAD SHIN NP Date/Time of Note DATE: 09/11/18 TIME: 13:17 24 HR Interval Summary Free Text/Dictation the patient stable Exam/Review of Systems Vital Signs Vitals Vital Signs Date Temp Pulse Resp B/P (MAP) Pulse Ox O2 O2 Flow FiO2 Time Delivery Rate 09/11/18 98.8 56 17 103/58 92 11:13 (73) 09/10/18 Room Air 15:26 09/10/18 2.0 05:58 Intake and Output 09/10/18 09/10/18 09/11/18 1515:00 23:00 07:00 IntakeIntake Total 680 ml 390 ml OutputOutput Total 800 ml 1000 ml BalanceBalance 680 ml -410 ml -1000 ml Labs Result Diagram: 09/11/18 0530 09/11/18 0530 Results 24hrs Laboratory Tests Test 09/10/18 16:56 09/10/18 20:01 09/11/18 05:30 09/11/18 08:27 Bedside Glucose 123 157 140 White Blood Count 6.6 Red Blood Count 3.08 L Hemoglobin 7.7 L Hematocrit 24.5 L Mean Corpuscular 79.5 L Volume Mean Corpuscular 25.0 L Hemoglobin Mean Corpuscular 31.4 L Hemoglobin Concent Red Cell 16.5 H Distribution Width Platelet Count 242 Mean Platelet Volume 10.8 H Immature 0.500 H Granulocytes % Neutrophils % 66.4 Lymphocytes % 15.2 Monocytes % 12.0 H Eosinophils % 5.0 Basophils % 0.9 Nucleated Red Blood 0.0 Cells % Immature 0.030 Granulocytes # Neutrophils # 4.4 Lymphocytes # 1.0 Monocytes # 0.8 Eosinophils # 0.3 Basophils # 0.1 Nucleated Red Blood 0.0 Cells # Sodium Level 138 Potassium Level 3.8 Chloride Level 103 Carbon Dioxide Level 25 Anion Gap 10 Blood Urea Nitrogen 102 H Creatinine 2.64 H Est Glomerular Filtrat Rate mL/min Glucose Level 120 # Calcium Level 8.4 Phosphorus Level 5.6 H Magnesium Level 2.7 H Test 09/11/18 12:40 Bedside Glucose 211 Medications Medications Current Medications IV Flush (NS 3 ml) 3 ml PER PROTOCOL IV ; Start 09/01/18 at 19:30 Ondansetron HCl (Zofran Inj) 4 mg Q6H PRN IV NAUSEA/VOMITING Last administered on 09/07/18at 12:10; Admin Dose 4 MG; Start 09/01/18 at 19:30 Acetaminophen (Tylenol Tab) 650 mg Q6H PRN PO .PAIN 1-3 OR TEMP; Start 09/01/18 at 19:30 Acetaminophen/ Hydrocodone Bitart ([place] (5/325)) 1 tab Q6H PRN PO .MOD PAIN 4- 6 Last administered on 09/11/18at 06:21; Admin Dose 1 TAB; Start 09/01/18 at 19:30 Morphine Sulfate (morphine) 2 mg Q4H PRN IV .SEVERE PAIN 7-10; Start 09/01/18 at 19:30 Docusate Sodium (Colace) 100 mg Q12H PRN PO .CONSTIPATION; Start 09/01/18 at 19:30 Magnesium Hydroxide (Milk Of Mag) 30 ml DAILY PRN PO .CONSTIPATION; Start 09/01/18 at 19:30 Lorazepam (Ativan) 0.5 mg Q6H PRN IV ANXIETY Last administered on 09/09/18at 23:11; Admin Dose 0.5 MG; Start 09/01/18 at 19:30 Albuterol/ Ipratropium (Duoneb) 3 ml Q4H RESP THERAPY PRN HHN SHORTNESS OF BREATH; Start 09/01/18 at 19:30 Hydralazine HCl (Apresoline) 10 mg Q6H PRN IV ELEVATED BLOOD PRESSURE; Start 09/01/18 at 19:30 Nitroglycerin (Nitroglycerin (Sl Tab) 0.4 Mg) 1 tab Q5M PRN SL ANGINA; Start 09/01/18 at 19:30 Apixaban (Eliquis) 2.5 mg BID PO Last administered on 09/11/18 08:29; Admin Dose 2.5 MG; Start 09/01/18 at 21:00 Atorvastatin Calcium (Lipitor) 40 mg QHS PO Last administered on 09/10/18 20:02; Admin Dose 40 MG; Start 09/01/18 at 21:00 Hydralazine HCl (Apresoline) 100 mg BID PO Last administered on 09/11/18 08:29; Admin Dose 100 MG; Start 09/01/18 at 21:00 Isosorbide Mononitrate (Imdur) 30 mg DAILY PO Last administered on 09/11/18 08:29; Admin Dose 30 MG; Start 09/02/18 at 09:00 Thiamine HCl (Vitamin B1) 100 mg DAILY PO Last administered on 09/11/18 08:29; Admin Dose 100 MG; Start 09/02/18 at 09:00 Fish Oil (Fish Oil) 2,000 mg BID PO Last administered on 09/11/18 08:28; Admin Dose 2,000 MG; Start 09/01/18 at 22:00 Diagnostic Test (Pha) (Accu-Chek) 1 ea 02 XX Last administered on 09/08/18at 02:16; Admin Dose 1 EA; Start 09/04/18 at 02:00 Insulin Aspart (Novolog Insulin Pen) NOVOLOG *MILD* ALGORITHM WITH MEALS BEDTIME SC Last administered on 09/11/18at 12:41; Admin Dose 2 UNIT; Start 09/03/18 at 11:50 Miscellaneous Information 1 ea NOTE XX ; Start 09/03/18 at 09:30 Glucose (Glutose) 15 gm Q15M PRN PO DECREASED GLUCOSE; Start 09/03/18 at 09:30 Glucose (Glutose) 22.5 gm Q15M PRN PO DECREASED GLUCOSE; Start 09/03/18 at 09:30 Dextrose (D50w Syringe) 25 ml Q15M PRN IV DECREASED GLUCOSE; Start 09/03/18 at 09:30 Dextrose (D50w Syringe) 50 ml Q15M PRN IV DECREASED GLUCOSE; Start 09/03/18 at 09:30 Glucagon (Glucagen) 1 mg Q15M PRN IM DECREASED GLUCOSE; Start 09/03/18 at 09:30 Glucose (Glutose) 15 gm Q15M PRN BUCCAL DECREASED GLUCOSE; Start 09/03/18 at 09:30 Carvedilol (Coreg) 12.5 mg BID PO Last administered on 09/11/18at 08:29; Admin Dose 12.5 MG; Start 09/03/18 at 21:00 Insulin Aspart (Novolog Insulin Pen) 6 unit WITH MEALS SC Last administered on 09/11/18at 12:41; Admin Dose 6 UNIT; Start 09/05/18 at 17:55 Insulin Glargine (Lantus) 17 units DAILY@0800 SC Last administered on 09/11/18at 08:39; Admin Dose 17 UNITS; Start 09/06/18 at 08:00 PAIGE BRAND MD Sep 11, 2018 13:17
--- NOTE | 2018-09-11 14:45 | PN ---
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 Patient currently has a LifeVest in place. Monitor on telemetry. Follow marine equipment research engineer recommendations #Cardiomyopathy EF of 30% Continue beta-abraham LOLY/ARB on hold due to CKD #Hypertension Continue antihypertensives #Diabetes A1c of 9.7 Continue insulin regimen #CAD Patient status post coronary artery stenting Continue antiplatelet therapy #CKD Monitor renal function. Holistic Pulser following. #Hyperlipidemia Continue on statin and fish oil Disposition and plan. Patient still noted with dyspnea on exertion. Continue with O2 supplement. We will see for possible long term facility [employer]. Discussed POC with Dr. Reese Result Diagram: 09/11/18 0530 09/11/18 0530 Results 24hrs Laboratory Tests Test 09/10/18 16:56 09/10/18 20:01 09/11/18 05:30 09/11/18 08:27 Bedside Glucose 123 157 140 White Blood Count 6.6 Red Blood Count 3.08 L Hemoglobin 7.7 L Hematocrit 24.5 L Mean Corpuscular 79.5 L Volume Mean Corpuscular 25.0 L Hemoglobin Mean Corpuscular 31.4 L Hemoglobin Concent Red Cell 16.5 H Distribution Width Platelet Count 242 Mean Platelet Volume 10.8 H Immature 0.500 H Granulocytes % Neutrophils % 66.4 Lymphocytes % 15.2 Monocytes % 12.0 H Eosinophils % 5.0 Basophils % 0.9 Nucleated Red Blood 0.0 Cells % Immature 0.030 Granulocytes # Neutrophils # 4.4 Lymphocytes # 1.0 Monocytes # 0.8 Eosinophils # 0.3 Basophils # 0.1 Nucleated Red Blood 0.0 Cells # Sodium Level 138 Potassium Level 3.8 Chloride Level 103 Carbon Dioxide Level 25 Anion Gap 10 Blood Urea Nitrogen 102 H Creatinine 2.64 H Est Glomerular Filtrat Rate mL/min Glucose Level 120 # Calcium Level 8.4 Phosphorus Level 5.6 H Magnesium Level 2.7 H Test 09/11/18 12:40 Bedside Glucose 211 Subjective 24 Hr Interval Summary Free Text/Dictation still reports severe dyspnea on exertion Exam/Review of Systems Exam Vitals Vital Signs Date Temp Pulse Resp B/P (MAP) Pulse Ox O2 O2 Flow FiO2 Time Delivery Rate 09/11/18 98.8 56 17 103/58 92 11:13 (73) 09/10/18 Room Air 15:26 09/10/18 2.0 05:58 Intake and Output 09/10/18 09/10/18 09/11/18 1515:00 23:00 07:00 IntakeIntake Total 680 ml 390 ml OutputOutput Total 800 ml 1000 ml BalanceBalance 680 ml -410 ml -1000 ml Constitutional: alert, oriented Psych: nl mood/affect Eyes: nl conjunctiva Respiratory: diminished breath sounds Cardiovascular: other (regular rate ) Gastrointestinal: soft, non-tender Extremities: edema 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, nl mental status, nl speech Results Results 24hrs Laboratory Tests Test 09/10/18 16:56 09/10/18 20:01 09/11/18 05:30 09/11/18 08:27 Bedside Glucose 123 157 140 White Blood Count 6.6 Red Blood Count 3.08 L Hemoglobin 7.7 L Hematocrit 24.5 L Mean Corpuscular 79.5 L Volume Mean Corpuscular 25.0 L Hemoglobin Mean Corpuscular 31.4 L Hemoglobin Concent Red Cell 16.5 H Distribution Width Platelet Count 242 Mean Platelet Volume 10.8 H Immature 0.500 H Granulocytes % Neutrophils % 66.4 Lymphocytes % 15.2 Monocytes % 12.0 H Eosinophils % 5.0 Basophils % 0.9 Nucleated Red Blood 0.0 Cells % Immature 0.030 Granulocytes # Neutrophils # 4.4 Lymphocytes # 1.0 Monocytes # 0.8 Eosinophils # 0.3 Basophils # 0.1 Nucleated Red Blood 0.0 Cells # Sodium Level 138 Potassium Level 3.8 Chloride Level 103 Carbon Dioxide Level 25 Anion Gap 10 Blood Urea Nitrogen 102 H Creatinine 2.64 H Est Glomerular Filtrat Rate mL/min Glucose Level 120 # Calcium Level 8.4 Phosphorus Level 5.6 H Magnesium Level 2.7 H Test 09/11/18 12:40 Bedside Glucose 211 Medications Medication Current Medications IV Flush (NS 3 ml) 3 ml PER PROTOCOL IV ; Start 09/01/18 at 19:30 Ondansetron HCl (Zofran Inj) 4 mg Q6H PRN IV NAUSEA/VOMITING Last administered on 09/07/18 12:10; Admin Dose 4 MG; Start 09/01/18 at 19:30 Acetaminophen (Tylenol Tab) 650 mg Q6H PRN PO .PAIN 1-3 OR TEMP; Start 09/01/18 at 19:30 Acetaminophen/ Hydrocodone Bitart ([place] (5/325)) 1 tab Q6H PRN PO .MOD PAIN 4- 6 Last administered on 09/11/18 06:21; Admin Dose 1 TAB; Start 09/01/18 at 19:30 Morphine Sulfate (morphine) 2 mg Q4H PRN IV .SEVERE PAIN 7-10; Start 09/01/18 at 19:30 Docusate Sodium (Colace) 100 mg Q12H PRN PO .CONSTIPATION; Start 09/01/18 at 19:30 Magnesium Hydroxide (Milk Of Mag) 30 ml DAILY PRN PO .CONSTIPATION; Start at 19:30 Lorazepam (Ativan) 0.5 mg Q6H PRN IV ANXIETY Last administered on 09/09/18 23:11; Admin Dose 0.5 MG; Start 09/01/18 at 19:30 Albuterol/ Ipratropium (Duoneb) 3 ml Q4H RESP THERAPY PRN HHN SHORTNESS OF BREATH; Start 09/01/18 at 19:30 Hydralazine HCl (Apresoline) 10 mg Q6H PRN IV ELEVATED BLOOD PRESSURE; Start 09/01/18 at 19:30 Nitroglycerin (Nitroglycerin (Sl Tab) 0.4 Mg) 1 tab Q5M PRN SL ANGINA; Start 09/01/18 at 19:30 Apixaban (Eliquis) 2.5 mg BID PO Last administered on 09/11/18 08:29; Admin Dose 2.5 MG; Start 09/01/18 at 21:00 Atorvastatin Calcium (Lipitor) 40 mg QHS PO Last administered on 09/10/18 20:02; Admin Dose 40 MG; Start 09/01/18 at 21:00 Hydralazine HCl (Apresoline) 100 mg BID PO Last administered on 09/11/18 08:29; Admin Dose 100 MG; Start 09/01/18 at 21:00 Isosorbide Mononitrate (Imdur) 30 mg DAILY PO Last administered on 09/11/18 08:29; Admin Dose 30 MG; Start 09/02/18 at 09:00 Thiamine HCl (Vitamin B1) 100 mg DAILY PO Last administered on 09/11/18 08:29; Admin Dose 100 MG; Start 09/02/18 at 09:00 Fish Oil (Fish Oil) 2,000 mg BID PO Last administered on 09/11/18 08:28; Admin Dose 2,000 MG; Start 09/01/18 at 22:00 Diagnostic Test (Pha) (Accu-Chek) 1 ea 02 XX Last administered on 09/08/18 02:16; Admin Dose 1 EA; Start 09/04/18 at 02:00 Insulin Aspart (Novolog Insulin Pen) NOVOLOG *MILD* ALGORITHM WITH MEALS BEDTIME SC Last administered on 09/11/18 12:41; Admin Dose 2 UNIT; Start 09/03/18 at 11:50 Miscellaneous Information 1 ea NOTE XX ; Start 09/03/18 at 09:30 Glucose (Glutose) 15 gm Q15M PRN PO DECREASED GLUCOSE; Start 09/03/18 at 09:30 Glucose (Glutose) 22.5 gm Q15M PRN PO DECREASED GLUCOSE; Start 09/03/18 at 09:30 Dextrose (D50w Syringe) 25 ml Q15M PRN IV DECREASED GLUCOSE; Start 09/03/18 at 09:30 Dextrose (D50w Syringe) 50 ml Q15M PRN IV DECREASED GLUCOSE; Start 09/03/18 at 09:30 Glucagon (Glucagen) 1 mg Q15M PRN IM DECREASED GLUCOSE; Start 09/03/18 at 09:30 Glucose (Glutose) 15 gm Q15M PRN BUCCAL DECREASED GLUCOSE; Start 09/03/18 at 09:30 Carvedilol (Coreg) 12.5 mg BID PO Last administered on 09/11/18 08:29; Admin Dose 12.5 MG; Start 09/03/18 at 21:00 Insulin Aspart (Novolog Insulin Pen) 6 unit WITH MEALS SC Last administered on 09/11/18 12:41; Admin Dose 6 UNIT; Start 09/05/18 at 17:55 Insulin Glargine (Lantus) 17 units DAILY@0800 SC Last administered on 09/11/18at 08:39; Admin Dose 17 UNITS; Start 09/06/18 at 08:00 JAD SHIN NP Sep 11, 2018 14:41
[2018-09-11 15:10] VITALS: BP 135/63; PULSE 57; RESP 18
[2018-09-11 20:00] VITALS: BP 141/70; PULSE 60; RESP 18
[2018-09-11] MEDS: ATORVASTATIN 40 MG TAB PO SCH (21:08)
[2018-09-12] VITALS (7 sets, daily range): BP systolic 131–154; BP diastolic 62–90; PULSE 57–61; RESP 16–19
[2018-09-12] MEDS: ACCU-CHEK XX SCH (02:00)
--- NOTE | 2018-09-12 07:10 | PN ---
DATE: 09/12/2018 SUBJECTIVE: The patient is stable, complaining about mild shortness of breath. The patient also say s he has had minimal urinary output. No other events noted. OBJECTIVE: VITAL SIGNS: Blood pressure is 142/68, respiration 19, pulse 61, temperature 98.5. HEENT: Head is normocephalic. NECK: Supple. HEART: Regular rate. LUNGS: Show diminished breath sounds at the base. ABDOMEN: Soft, nontender to palpation. No rebound or guarding. EXTREMITIES: Negative for clubbing, cyanosis, no edema. DERMATOLOGIC: No rashes. MUSCULOSKELETAL: No joint effusion. NEUROLOGIC: No change in exam. MEDICATIONS: Have been reviewed. LABORATORY DATA: Has been reviewed. IMAGING STUDIES: Have been reviewed. ASSESSMENT AND PLAN: 1. Nonoliguric acute kidney injury on top of chronic kidney disease stage IV with previous baseline creatinine around 2.5 mg/dL. Etiology of acute kidney injury is secondary to hemodynamics, cardioren al syndrome. The patient's renal function is returning back to baseline. At this point, continue cu rrent treatment plan, supportive care, renally dose all meds. Will continue to hold diuretic therapy for another 24 hours. Anticipate recent reintroducing low dose diuretics in the next 1 to 2 days. 2. Anemia. Monitor hemoglobin and hematocrit levels. 3. Mineral bone disorder. Monitor calcium and phosphorus levels. 4. Decompensated heart failure. Patient appears euvolemic on exam, although continues to have some mild shortness of breath. Continue to monitor off diuretic therapy. Would defer any LOLY inhibitor o r ARB in setting of acute kidney injury. 5. Shortness of breath is unclear if this is due to congestive heart failure, questionable reactive airway disease. Continue to monitor. 6. Diabetes. Continue current insulin regimen. 7. Dyslipidemia. Continue statin therapy. 8. Coronary artery disease. Continue medical management. 9. Hypertension. Continue current blood pressure regimen, avoiding LOLY inhibitor or ARB at this chichi e. 10. Arrhythmia. Continue current treatment plan. Dictated By: CHRISTOPHER MARIO DO NR/NTS Conf#: [id number] DID#: [id number] CC: DALILA TAVERAS MD;*EndCC*
[2018-09-12] MEDS: INSULIN ASPART [NOVOLOG] 3 ML PEN SC SCH ×7 (07:55→21:06)
[2018-09-12] MEDS: APIXABAN 5 MG TABLET PO SCH ×2 (08:23→20:13)
[2018-09-12] MEDS: THIAMINE 100 MG TAB PO SCH (08:23)
[2018-09-12] MEDS: ISOSORBIDE MONONITRATE(SR)30 MG TAB PO SCH (08:23)
[2018-09-12] MEDS: INSULIN GLARGINE [LANTus] (100 UNITS/ML) SYG SC SCH (08:31)
[2018-09-12] MEDS: FISH OIL 1,000 MG CAP PO SCH ×3 (08:31→20:13)
--- NOTE | 2018-09-12 09:23 | CONS ---
Assessment/Plan Cardiology NYHA: IV Heart Failure Type: Acute on Chronic Heart Failure Type: Both Assessment/Plan Assessment/Plan (Daily) systolic congestive heart failure Cardiomyopathy with ejection fraction <25% Mild to moderate coronary artery disease left heart catheterization January 2016 History of ventricular tachycardia, with history of LifeVest Acute kidney injury CKD Hypertension anemia Recommendation: Cont Coreg Continue hydralazine/ Isordil combination since patient is not ON ARB LOLY due to his renal failure Diuretics as tolerated in setting of CKD-being followed by renal Consultation Date/Type/Reason Admit Date/Time Sep 01, 2018 at 19:14 Initial Consult Date 09/02/18 Type of Consult Cardiology Requesting Provider: JAD SHIN NP Date/Time of Note DATE: 09/12/18 TIME: 09:23 24 HR Interval Summary Free Text/Dictation The patient stable overnight Exam/Review of Systems Vital Signs Vitals Vital Signs Date Temp Pulse Resp B/P (MAP) Pulse Ox O2 O2 Flow FiO2 Time Delivery Rate 09/12/18 97.6 60 16 146/90 97 07:10 (108) 09/12/18 2.0 01:35 09/10/18 Room Air 15:26 Intake and Output 09/11/18 09/11/18 09/12/18 1515:00 23:00 07:00 IntakeIntake Total 200 ml 300 ml OutputOutput Total 300 ml 700 ml 1300 ml BalanceBalance -100 ml -400 ml -1300 ml Labs Result Diagram: 09/12/18 0642 09/12/18 0642 Results 24hrs Laboratory Tests Test 09/11/18 12:40 09/11/18 17:53 09/11/18 20:44 09/12/18 02:57 Bedside Glucose 211 160 87 146 Test 09/12/18 06:42 09/12/18 08:21 White Blood Count 7.5 Red Blood Count 3.24 L Hemoglobin 8.2 L Hematocrit 26.1 L Mean Corpuscular 80.6 L Volume Mean Corpuscular 25.3 L Hemoglobin Mean Corpuscular 31.4 L Hemoglobin Concent Red Cell 16.6 H Distribution Width Platelet Count 265 Mean Platelet Volume 10.9 H Immature 0.300 Granulocytes % Neutrophils % 70.0 Lymphocytes % 11.2 L Monocytes % 12.8 H Eosinophils % 4.8 Basophils % 0.9 Nucleated Red Blood 0.0 Cells % Immature 0.020 Granulocytes # Neutrophils # 5.3 Lymphocytes # 0.8 Monocytes # 1.0 H Eosinophils # 0.4 Basophils # 0.1 Nucleated Red Blood 0.0 Cells # Sodium Level 137 Potassium Level 3.8 Chloride Level 102 Carbon Dioxide Level 25 Anion Gap 10 Blood Urea Nitrogen 97 H Creatinine 2.82 H Est Glomerular Filtrat Rate mL/min Glucose Level 106 Calcium Level 8.7 Phosphorus Level 5.0 H Magnesium Level 2.6 H Bedside Glucose 105 Medications Medications Current Medications IV Flush (NS 3 ml) 3 ml PER PROTOCOL IV ; Start 09/01/18 at 19:30 Ondansetron HCl (Zofran Inj) 4 mg Q6H PRN IV NAUSEA/VOMITING Last administered on 09/07/18at 12:10; Admin Dose 4 MG; Start 09/01/18 at 19:30 Acetaminophen (Tylenol Tab) 650 mg Q6H PRN PO .PAIN 1-3 OR TEMP; Start 09/01/18 at 19:30 Acetaminophen/ Hydrocodone Bitart ([place] (5/325)) 1 tab Q6H PRN PO .MOD PAIN 4- 6 Last administered on 09/11/18at 06:21; Admin Dose 1 TAB; Start 09/01/18 at 19:30 Morphine Sulfate (morphine) 2 mg Q4H PRN IV .SEVERE PAIN 7-10; Start 09/01/18 at 19:30 Docusate Sodium (Colace) 100 mg Q12H PRN PO .CONSTIPATION; Start 09/01/18 at 19:30 Magnesium Hydroxide (Milk Of Mag) 30 ml DAILY PRN PO .CONSTIPATION; Start 09/01/18 at 19:30 Lorazepam (Ativan) 0.5 mg Q6H PRN IV ANXIETY Last administered on 09/09/18at 23:11; Admin Dose 0.5 MG; Start 09/01/18 at 19:30 Albuterol/ Ipratropium (Duoneb) 3 ml Q4H RESP THERAPY PRN HHN SHORTNESS OF BREATH; Start 09/01/18 at 19:30 Hydralazine HCl (Apresoline) 10 mg Q6H PRN IV ELEVATED BLOOD PRESSURE; Start 09/01/18 at 19:30 Nitroglycerin (Nitroglycerin (Sl Tab) 0.4 Mg) 1 tab Q5M PRN SL ANGINA; Start 09/01/18 at 19:30 Apixaban (Eliquis) 2.5 mg BID PO Last administered on 09/12/18 08:23; Admin Dose 2.5 MG; Start 09/01/18 at 21:00 Atorvastatin Calcium (Lipitor) 40 mg QHS PO Last administered on 09/11/18 21:08; Admin Dose 40 MG; Start 09/01/18 at 21:00 Hydralazine HCl (Apresoline) 100 mg BID PO Last administered on 09/12/18 08:23; Admin Dose 100 MG; Start 09/01/18 at 21:00 Isosorbide Mononitrate (Imdur) 30 mg DAILY PO Last administered on 09/12/18 08:23; Admin Dose 30 MG; Start 09/02/18 at 09:00 Thiamine HCl (Vitamin B1) 100 mg DAILY PO Last administered on 09/12/18 08:23; Admin Dose 100 MG; Start 09/02/18 at 09:00 Fish Oil (Fish Oil) 2,000 mg BID PO Last administered on 09/11/18 21:08; Admin Dose 2,000 MG; Start 09/01/18 at 22:00 Diagnostic Test (Pha) (Accu-Chek) 1 ea 02 XX Last administered on 09/08/18 02:16; Admin Dose 1 EA; Start 09/04/18 at 02:00 Insulin Aspart (Novolog Insulin Pen) NOVOLOG *MILD* ALGORITHM WITH MEALS BEDTIME SC Last administered on 09/11/18 17:59; Admin Dose 1 UNIT; Start 09/03/18 at 11:50 Miscellaneous Information 1 ea NOTE XX ; Start 09/03/18 at 09:30 Glucose (Glutose) 15 gm Q15M PRN PO DECREASED GLUCOSE; Start 09/03/18 at 09:30 Glucose (Glutose) 22.5 gm Q15M PRN PO DECREASED GLUCOSE; Start 09/03/18 at 09:30 Dextrose (D50w Syringe) 25 ml Q15M PRN IV DECREASED GLUCOSE; Start 09/03/18 at 09:30 Dextrose (D50w Syringe) 50 ml Q15M PRN IV DECREASED GLUCOSE; Start 09/03/18 at 09:30 Glucagon (Glucagen) 1 mg Q15M PRN IM DECREASED GLUCOSE; Start 09/03/18 at 09:30 Glucose (Glutose) 15 gm Q15M PRN BUCCAL DECREASED GLUCOSE; Start 09/03/18 at 09:30 Carvedilol (Coreg) 12.5 mg BID PO Last administered on 09/12/18at 08:23; Admin Dose 12.5 MG; Start 09/03/18 at 21:00 Insulin Aspart (Novolog Insulin Pen) 6 unit WITH MEALS SC Last administered on 09/11/18at 17:59; Admin Dose 6 UNIT; Start 09/05/18 at 17:55 Insulin Glargine (Lantus) 17 units DAILY@0800 SC Last administered on 09/12/18 08:31; Admin Dose 17 UNITS; Start 09/06/18 at 08:00 PAIGE BRAND MD Sep 12, 2018 09:23
--- NOTE | 2018-09-12 12:46 | CONS ---
Consult Date/Type/Reason Admit Date/Time Sep 01, 2018 at 19:14 Initial Consult Date 09/02/18 Type of Consult Pulmonary Requesting Provider: JAD SHIN NP Date/Time of Note DATE: 09/12/18 TIME: 12:46 Subjective No significant changes appears comfortable. Objective Vital Signs Date Temp Pulse Resp B/P (MAP) Pulse Ox O2 O2 Flow FiO2 Time Delivery Rate 09/12/18 98.0 57 17 131/62 95 11:27 (85) 09/12/18 2.0 01:35 09/10/18 Room Air 15:26 Intake and Output 09/11/18 09/11/18 09/12/18 1515:00 23:00 07:00 IntakeIntake Total 200 ml 300 ml OutputOutput Total 300 ml 700 ml 1300 ml BalanceBalance -100 ml -400 ml -1300 ml Exam GENERAL: Elderly appearing gentleman appears comfortable at rest VITAL SIGNS: per chart NECK: Supple. No JVD or lymphadenopathy. CARDIAC EXAM: S1, S2. No added sounds or murmurs. CHEST: Diminished air entry bilaterally ABDOMEN: Soft, nontender. No guarding or rebound. EXTREMITIES: No cyanosis, clubbing or edema. NEUROLOGIC: Generalized weakness. No focal deficits. Vent Setting Fraction of Inspired Oxygen pe: 27 Results/Medications Result Diagram: 09/12/18 0642 09/12/18 0642 Results 24 hrs Laboratory Tests Test 09/11/18 17:53 09/11/18 20:44 09/12/18 02:57 09/12/18 06:42 Bedside Glucose 160 87 146 White Blood Count 7.5 Red Blood Count 3.24 L Hemoglobin 8.2 L Hematocrit 26.1 L Mean Corpuscular 80.6 L Volume Mean Corpuscular 25.3 L Hemoglobin Mean Corpuscular 31.4 L Hemoglobin Concent Red Cell 16.6 H Distribution Width Platelet Count 265 Mean Platelet Volume 10.9 H Immature 0.300 Granulocytes % Neutrophils % 70.0 Lymphocytes % 11.2 L Monocytes % 12.8 H Eosinophils % 4.8 Basophils % 0.9 Nucleated Red Blood 0.0 Cells % Immature 0.020 Granulocytes # Neutrophils # 5.3 Lymphocytes # 0.8 Monocytes # 1.0 H Eosinophils # 0.4 Basophils # 0.1 Nucleated Red Blood 0.0 Cells # Sodium Level 137 Potassium Level 3.8 Chloride Level 102 Carbon Dioxide Level 25 Anion Gap 10 Blood Urea Nitrogen 97 H Creatinine 2.82 H Est Glomerular Filtrat Rate mL/min Glucose Level 106 Calcium Level 8.7 Phosphorus Level 5.0 H Magnesium Level 2.6 H Test 09/12/18 08:21 Bedside Glucose 105 Medications Current Medications IV Flush (NS 3 ml) 3 ml PER PROTOCOL IV ; Start 09/01/18 at 19:30 Ondansetron HCl (Zofran Inj) 4 mg Q6H PRN IV NAUSEA/VOMITING Last administered on 09/07/18at 12:10; Admin Dose 4 MG; Start 09/01/18 at 19:30 Acetaminophen (Tylenol Tab) 650 mg Q6H PRN PO .PAIN 1-3 OR TEMP; Start 09/01/18 at 19:30 Acetaminophen/ Hydrocodone Bitart ([place] (5/325)) 1 tab Q6H PRN PO .MOD PAIN 4- 6 Last administered on 09/11/18at 06:21; Admin Dose 1 TAB; Start 09/01/18 at 19:30 Morphine Sulfate (morphine) 2 mg Q4H PRN IV .SEVERE PAIN 7-10; Start 09/01/18 at 19:30 Docusate Sodium (Colace) 100 mg Q12H PRN PO .CONSTIPATION; Start 09/01/18 at 19:30 Magnesium Hydroxide (Milk Of Mag) 30 ml DAILY PRN PO .CONSTIPATION; Start 09/01/18 at 19:30 Lorazepam (Ativan) 0.5 mg Q6H PRN IV ANXIETY Last administered on 09/09/18at 23: 11; Admin Dose 0.5 MG; Start 09/01/18 at 19:30 Albuterol/ Ipratropium (Duoneb) 3 ml Q4H RESP THERAPY PRN HHN SHORTNESS OF BREATH; Start 09/01/18 at 19:30 Hydralazine HCl (Apresoline) 10 mg Q6H PRN IV ELEVATED BLOOD PRESSURE; Start 09/01/18 at 19:30 Nitroglycerin (Nitroglycerin (Sl Tab) 0.4 Mg) 1 tab Q5M PRN SL ANGINA; Start 09/01/18 at 19:30 Apixaban (Eliquis) 2.5 mg BID PO Last administered on 09/12/18 08:23; Admin Dose 2.5 MG; Start 09/01/18 at 21:00 Atorvastatin Calcium (Lipitor) 40 mg QHS PO Last administered on 09/11/18 21:08; Admin Dose 40 MG; Start 09/01/18 at 21:00 Hydralazine HCl (Apresoline) 100 mg BID PO Last administered on 09/12/18 08:23; Admin Dose 100 MG; Start 09/01/18 at 21:00 Isosorbide Mononitrate (Imdur) 30 mg DAILY PO Last administered on 09/12/18 08:23; Admin Dose 30 MG; Start 09/02/18 at 09:00 Thiamine HCl (Vitamin B1) 100 mg DAILY PO Last administered on 09/12/18 08:23; Admin Dose 100 MG; Start 09/02/18 at 09:00 Fish Oil (Fish Oil) 2,000 mg BID PO Last administered on 09/12/18 10:10; Admin Dose 2,000 MG; Start 09/01/18 at 22:00 Diagnostic Test (Pha) (Accu-Chek) 1 ea 02 XX Last administered on 09/08/18at 02:16; Admin Dose 1 EA; Start 09/04/18 at 02:00 Insulin Aspart (Novolog Insulin Pen) NOVOLOG *MILD* ALGORITHM WITH MEALS BEDTIME SC Last administered on 09/11/18 17:59; Admin Dose 1 UNIT; Start 09/03/18 at 11:50 Miscellaneous Information 1 ea NOTE XX ; Start 09/03/18 at 09:30 Glucose (Glutose) 15 gm Q15M PRN PO DECREASED GLUCOSE; Start 09/03/18 at 09:30 Glucose (Glutose) 22.5 gm Q15M PRN PO DECREASED GLUCOSE; Start 09/03/18 at 09:3 0 Dextrose (D50w Syringe) 25 ml Q15M PRN IV DECREASED GLUCOSE; Start 09/03/18 at 09:30 Dextrose (D50w Syringe) 50 ml Q15M PRN IV DECREASED GLUCOSE; Start 09/03/18 at 09:30 Glucagon (Glucagen) 1 mg Q15M PRN IM DECREASED GLUCOSE; Start 09/03/18 at 09:30 Glucose (Glutose) 15 gm Q15M PRN BUCCAL DECREASED GLUCOSE; Start 09/03/18 at 09:30 Carvedilol (Coreg) 12.5 mg BID PO Last administered on 09/12/18at 08:23; Admin Dose 12.5 MG; Start 09/03/18 at 21:00 Insulin Aspart (Novolog Insulin Pen) 6 unit WITH MEALS SC Last administered on 09/11/18at 17:59; Admin Dose 6 UNIT; Start 09/05/18 at 17:55 Insulin Glargine (Lantus) 17 units DAILY@0800 SC Last administered on 09/12/18at 08:31; Admin Dose 17 UNITS; Start 09/06/18 at 08:00 Assessment/Plan Hospital Course (Demo Recall) IMP: 1. ADHF 2. Renal insufficiency. 3. Type 1 diabetes. RECS: 1. Diuresis as per CV 2. follow RF 3. Strict I/O's DC planning okay from pulmonary standpoint CINTIA MAXWELL MD, [facility] Sep 12, 2018 12:46
--- NOTE | 2018-09-12 14:18 | PN ---
Date/Time of Note Date/Time of Note DATE: 09/12/18 TIME: 14:15 Assessment/Plan VTE Prophylaxis Risk score (from Ns)>0 risk: 7 SCD applied (from Ns): Yes Pharmacological prophylaxis: apixaban Lines/Catheters IV Catheter Type (from Nrs): [place] Lock Urinary Cath still in place: No Assessment/Plan Hospital Course Assessment plan #Chest pain ACS ruled out Problem Manager following #CHF Acute on chronic CHF Diuretics as renal function tolerates #History of sustained VT Patient did have history of sustained VT on March 22, 2018 status post LifeVest placement in March 2018. Patient currently has a LifeVest in place. Monitor on telemetry. Follow machine turner recommendations #Cardiomyopathy EF of 30% Continue beta-abraham LOLY/ARB on hold due to CKD #Hypertension Continue antihypertensives #Diabetes A1c of 9.7 Continue insulin regimen #CAD Patient status post coronary artery stenting Continue antiplatelet therapy #CKD Monitor renal function. Supervisor Cd Area following. #Hyperlipidemia Continue on statin and fish oil Disposition and plan. Patient still noted with dyspnea on exertion. Continue with O2 supplement. PT ordered again. Awaiting possible snf placement Discussed POC with Dr. Reese Result Diagram: 09/12/18 0642 09/12/18 0642 Results 24hrs Laboratory Tests Test 09/11/18 17:53 09/11/18 20:44 09/12/18 02:57 09/12/18 06:42 Bedside Glucose 160 87 146 White Blood Count 7.5 Red Blood Count 3.24 L Hemoglobin 8.2 L Hematocrit 26.1 L Mean Corpuscular 80.6 L Volume Mean Corpuscular 25.3 L Hemoglobin Mean Corpuscular 31.4 L Hemoglobin Concent Red Cell 16.6 H Distribution Width Platelet Count 265 Mean Platelet Volume 10.9 H Immature 0.300 Granulocytes % Neutrophils % 70.0 Lymphocytes % 11.2 L Monocytes % 12.8 H Eosinophils % 4.8 Basophils % 0.9 Nucleated Red Blood 0.0 Cells % Immature 0.020 Granulocytes # Neutrophils # 5.3 Lymphocytes # 0.8 Monocytes # 1.0 H Eosinophils # 0.4 Basophils # 0.1 Nucleated Red Blood 0.0 Cells # Sodium Level 137 Potassium Level 3.8 Chloride Level 102 Carbon Dioxide Level 25 Anion Gap 10 Blood Urea Nitrogen 97 H Creatinine 2.82 H Est Glomerular Filtrat Rate mL/min Glucose Level 106 Calcium Level 8.7 Phosphorus Level 5.0 H Magnesium Level 2.6 H Test 09/12/18 08:21 09/12/18 12:49 Bedside Glucose 105 197 Subjective 24 Hr Interval Summary Free Text/Dictation still reports dyspnea on exertion Exam/Review of Systems Exam Vitals Vital Signs Date Temp Pulse Resp B/P (MAP) Pulse Ox O2 O2 Flow FiO2 Time Delivery Rate 09/12/18 98.0 57 17 131/62 95 11:27 (85) 09/12/18 2.0 01:35 09/10/18 Room Air 15:26 Intake and Output 09/11/18 09/11/18 09/12/18 1515:00 23:00 07:00 IntakeIntake Total 200 ml 300 ml OutputOutput Total 300 ml 700 ml 1300 ml BalanceBalance -100 ml -400 ml -1300 ml Results Results 24hrs Laboratory Tests Test 09/11/18 17:53 09/11/18 20:44 09/12/18 02:57 09/12/18 06:42 Bedside Glucose 160 87 146 White Blood Count 7.5 Red Blood Count 3.24 L Hemoglobin 8.2 L Hematocrit 26.1 L Mean Corpuscular 80.6 L Volume Mean Corpuscular 25.3 L Hemoglobin Mean Corpuscular 31.4 L Hemoglobin Concent Red Cell 16.6 H Distribution Width Platelet Count 265 Mean Platelet Volume 10.9 H Immature 0.300 Granulocytes % Neutrophils % 70.0 Lymphocytes % 11.2 L Monocytes % 12.8 H Eosinophils % 4.8 Basophils % 0.9 Nucleated Red Blood 0.0 Cells % Immature 0.020 Granulocytes # Neutrophils # 5.3 Lymphocytes # 0.8 Monocytes # 1.0 H Eosinophils # 0.4 Basophils # 0.1 Nucleated Red Blood 0.0 Cells # Sodium Level 137 Potassium Level 3.8 Chloride Level 102 Carbon Dioxide Level 25 Anion Gap 10 Blood Urea Nitrogen 97 H Creatinine 2.82 H Est Glomerular Filtrat Rate mL/min Glucose Level 106 Calcium Level 8.7 Phosphorus Level 5.0 H Magnesium Level 2.6 H Test 09/12/18 08:21 09/12/18 12:49 Bedside Glucose 105 197 Medications Medication Current Medications IV Flush (NS 3 ml) 3 ml PER PROTOCOL IV ; Start 09/01/18 at 19:30 Ondansetron HCl (Zofran Inj) 4 mg Q6H PRN IV NAUSEA/VOMITING Last administered on 09/07/18 12:10; Admin Dose 4 MG; Start 09/01/18 at 19:30 Acetaminophen (Tylenol Tab) 650 mg Q6H PRN PO .PAIN 1-3 OR TEMP; Start 09/01/18 at 19:30 Acetaminophen/ Hydrocodone Bitart ([place] (5/325)) 1 tab Q6H PRN PO .MOD PAIN 4- 6 Last administered on 09/11/18 06:21; Admin Dose 1 TAB; Start 09/01/18 at 19:30 Morphine Sulfate (morphine) 2 mg Q4H PRN IV .SEVERE PAIN 7-10; Start 09/01/18 at 19:30 Docusate Sodium (Colace) 100 mg Q12H PRN PO .CONSTIPATION; Start 09/01/18 at 19:30 Magnesium Hydroxide (Milk Of Mag) 30 ml DAILY PRN PO .CONSTIPATION; Start 09/01/18 at 19:30 Lorazepam (Ativan) 0.5 mg Q6H PRN IV ANXIETY Last administered on 09/09/18 23:11; Admin Dose 0.5 MG; Start 09/01/18 at 19:30 Albuterol/ Ipratropium (Duoneb) 3 ml Q4H RESP THERAPY PRN HHN SHORTNESS OF [place] ATH; Start 09/01/18 at 19:30 Hydralazine HCl (Apresoline) 10 mg Q6H PRN IV ELEVATED BLOOD PRESSURE; Start 09/01/18 at 19:30 Nitroglycerin (Nitroglycerin (Sl Tab) 0.4 Mg) 1 tab Q5M PRN SL ANGINA; Start 09/01/18 at 19:30 Apixaban (Eliquis) 2.5 mg BID PO Last administered on 09/12/18 08:23; Admin D ose 2.5 MG; Start 09/01/18 at 21:00 Atorvastatin Calcium (Lipitor) 40 mg QHS PO Last administered on 09/11/18 21:08; Admin Dose 40 MG; Start 09/01/18 at 21:00 Hydralazine HCl (Apresoline) 100 mg BID PO Last administered on 09/12/18 08:23; Admin Dose 100 MG; Start 09/01/18 at 21:00 Isosorbide Mononitrate (Imdur) 30 mg DAILY PO Last administered on 09/12/18 08:23; Admin Dose 30 MG; Start 09/02/18 at 09:00 Thiamine HCl (Vitamin B1) 100 mg DAILY PO Last administered on 09/12/18 08:23; Admin Dose 100 MG; Start 09/02/18 at 09:00 Fish Oil (Fish Oil) 2,000 mg BID PO Last administered on 09/12/18 10:10; Admin Dose 2,000 MG; Start 09/01/18 at 22:00 Diagnostic Test (Pha) (Accu-Chek) 1 ea 02 XX Last administered on 09/08/18 02:16; Admin Dose 1 EA; Start 09/04/18 at 02:00 Insulin Aspart (Novolog Insulin Pen) NOVOLOG *MILD* ALGORITHM WITH MEALS BEDTIME SC Last administered on 09/11/18 17:59; Admin Dose 1 UNIT; Start 09/03/18 at 11:50 Miscellaneous Information 1 ea NOTE XX ; Start 09/03/18 at 09:30 Glucose (Glutose) 15 gm Q15M PRN PO DECREASED GLUCOSE; Start 09/03/18 at 09:30 Glucose (Glutose) 22.5 gm Q15M PRN PO DECREASED GLUCOSE; Start 09/03/18 at 09:30 Dextrose (D50w Syringe) 25 ml Q15M PRN IV DECREASED GLUCOSE; Start 09/03/18 at 09:30 Dextrose (D50w Syringe) 50 ml Q15M PRN IV DECREASED GLUCOSE; Start 09/03/18 at 09:30 Glucagon (Glucagen) 1 mg Q15M PRN IM DECREASED GLUCOSE; Start 09/03/18 at 09:30 Glucose (Glutose) 15 gm Q15M PRN BUCCAL DECREASED GLUCOSE; Start 09/03/18 at 09:30 Carvedilol (Coreg) 12.5 mg BID PO Last administered on 09/12/18 08:23; Admin Dose 12.5 MG; Start 09/03/18 at 21:00 Insulin Aspart (Novolog Insulin Pen) 6 unit WITH MEALS SC Last administered on 09/11/18 17:59; Admin Dose 6 UNIT; Start 09/05/18 at 17:55 Insulin Glargine (Lantus) 17 units DAILY@0800 SC Last administered on 09/12/18 08:31; Admin Dose 17 UNITS; Start 09/06/18 at 08:00 JAD SHIN NP Sep 12, 2018 14:18
[2018-09-12] MEDS: ATORVASTATIN 40 MG TAB PO SCH (20:13)
[2018-09-13] MEDS: ACCU-CHEK XX SCH (02:15)
[2018-09-13 03:51] VITALS: BP 144/69; PULSE 61; RESP 17
[2018-09-13 07:37] VITALS: BP 135/70; PULSE 60; RESP 16
[2018-09-13] MEDS: ISOSORBIDE MONONITRATE(SR)30 MG TAB PO SCH (09:42)
[2018-09-13] MEDS: FISH OIL 1,000 MG CAP PO SCH ×2 (09:42→21:01)
[2018-09-13] MEDS: BUMETANIDE 1 MG TAB PO SCH (09:42)
[2018-09-13] MEDS: APIXABAN 5 MG TABLET PO SCH ×2 (09:42→21:01)
[2018-09-13] MEDS: THIAMINE 100 MG TAB PO SCH (09:43)
[2018-09-13] MEDS: INSULIN ASPART [NOVOLOG] 3 ML PEN SC SCH ×7 (09:51→21:00)
[2018-09-13] MEDS: INSULIN GLARGINE [LANTus] (100 UNITS/ML) SYG SC SCH (09:51)
[2018-09-13 11:06] VITALS: BP 143/65; PULSE 59; RESP 18
--- NOTE | 2018-09-13 12:06 | CONS ---
Consult Date/Type/Reason Admit Date/Time Sep 01, 2018 at 19:14 Initial Consult Date 09/02/18 Type of Consult Pulmonary Requesting Provider: JAD SHIN NP Date/Time of Note DATE: 09/13/18 TIME: 12:06 Subjective Patient stable no new events. Objective Vital Signs Date Temp Pulse Resp B/P (MAP) Pulse Ox O2 O2 Flow FiO2 Time Delivery Rate 09/13/18 98.7 59 18 143/65 100 11:06 (91) 09/13/18 Nasal 03:51 Cannula 09/12/18 2.0 20:30 Intake and Output 09/12/18 09/12/18 09/13/18 1515:00 23:00 07:00 IntakeIntake Total 650 ml 350 ml OutputOutput Total 300 ml 750 ml 550 ml BalanceBalance 350 ml -400 ml -550 ml Exam GENERAL: Elderly appearing gentleman appears comfortable at rest VITAL SIGNS: per chart NECK: Supple. No JVD or lymphadenopathy. CARDIAC EXAM: S1, S2. No added sounds or murmurs. CHEST: Diminished air entry bilaterally ABDOMEN: Soft, nontender. No guarding or rebound. EXTREMITIES: No cyanosis, clubbing or edema. NEUROLOGIC: Generalized weakness. No focal deficits. Vent Setting Fraction of Inspired Oxygen pe: 27 Results/Medications Result Diagram: 09/13/18 0546 09/13/18 0546 Results 24 hrs Laboratory Tests Test 09/12/18 12:49 09/12/18 17:41 09/12/18 20:11 09/13/18 02:10 Bedside Glucose 197 200 182 72 Test 09/13/18 05:46 09/13/18 07:41 White Blood Count 7.6 Red Blood Count 3.38 L Hemoglobin 8.4 L Hematocrit 27.5 L Mean Corpuscular 81.4 L Volume Mean Corpuscular 24.9 L Hemoglobin Mean Corpuscular 30.5 L Hemoglobin Concent Red Cell 17.2 H Distribution Width Platelet Count 289 Mean Platelet Volume 10.8 H Immature 0.400 Granulocytes % Neutrophils % 75.1 Lymphocytes % 8.6 L Monocytes % 11.6 H Eosinophils % 3.3 Basophils % 1.0 Nucleated Red Blood 0.0 Cells % Immature 0.030 Granulocytes # Neutrophils # 5.7 Lymphocytes # 0.7 L Monocytes # 0.9 Eosinophils # 0.3 Basophils # 0.1 Nucleated Red Blood 0.0 Cells # Sodium Level 138 Potassium Level 4.1 Chloride Level 104 Carbon Dioxide Level 25 Anion Gap 9 Blood Urea Nitrogen 91 H Creatinine 2.59 H Est Glomerular Filtrat Rate mL/min Glucose Level 173 Calcium Level 8.6 Phosphorus Level 4.9 Magnesium Level 2.6 H Bedside Glucose 163 Medications Current Medications IV Flush (NS 3 ml) 3 ml PER PROTOCOL IV ; Start 09/01/18 at 19:30 Ondansetron HCl (Zofran Inj) 4 mg Q6H PRN IV NAUSEA/VOMITING Last administered on 09/07/18 12:10; Admin Dose 4 MG; Start 09/01/18 at 19:30 Acetaminophen (Tylenol Tab) 650 mg Q6H PRN PO .PAIN 1-3 OR TEMP; Start 09/01/18 at 19:30 Acetaminophen/ Hydrocodone Bitart ([place] (5/325)) 1 tab Q6H PRN PO .MOD PAIN 4- 6 Last administered on 09/11/18 06:21; Admin Dose 1 TAB; Start 09/01/18 at 19:30 Morphine Sulfate (morphine) 2 mg Q4H PRN IV .SEVERE PAIN 7-10; Start 09/01/18 at 19:30 Docusate Sodium (Colace) 100 mg Q12H PRN PO .CONSTIPATION; Start 09/01/18 at 19:30 Magnesium Hydroxide (Milk Of Mag) 30 ml DAILY PRN PO .CONSTIPATION; Start 09/01/18 at 19:30 Lorazepam (Ativan) 0.5 mg Q6H PRN IV ANXIETY Last administered on 09/09/18 23:11; Admin Dose 0.5 MG; Start 09/01/18 at 19:30 Albuterol/ Ipratropium (Duoneb) 3 ml Q4H RESP THERAPY PRN HHN SHORTNESS OF BREATH; Start 09/01/18 at 19:30 Hydralazine HCl (Apresoline) 10 mg Q6H PRN IV ELEVATED BLOOD PRESSURE; Start 09/01/18 at 19:30 Nitroglycerin (Nitroglycerin (Sl Tab) 0.4 Mg) 1 tab Q5M PRN SL ANGINA; Start 09/01/18 at 19:30 Apixaban (Eliquis) 2.5 mg BID PO Last administered on 09/13/18 09:42; Admin Dose 2.5 MG; Start 09/01/18 at 21:00 Atorvastatin Calcium (Lipitor) 40 mg QHS PO Last administered on 09/12/18 20:13; Admin Dose 40 MG; Start 09/01/18 at 21:00 Hydralazine HCl (Apresoline) 100 mg BID PO Last administered on 09/13/18 09:43; Admin Dose 100 MG; Start 09/01/18 at 21:00 Isosorbide Mononitrate (Imdur) 30 mg DAILY PO Last administered on 09/13/18 09:42; Admin Dose 30 MG; Start 09/02/18 at 09:00 Thiamine HCl (Vitamin B1) 100 mg DAILY PO Last administered on 09/13/18 09:43; Admin Dose 100 MG; Start 09/02/18 at 09:00 Fish Oil (Fish Oil) 2,000 mg BID PO Last administered on 09/13/18 09:42; Admin Dose 2,000 MG; Start 09/01/18 at 22:00 Diagnostic Test (Pha) (Accu-Chek) 1 ea 02 XX Last administered on 09/13/18 02:15; Admin Dose 1 EA; Start 09/04/18 at 02:00 Insulin Aspart (Novolog Insulin Pen) NOVOLOG *MILD* ALGORITHM WITH MEALS BEDTIME SC Last administered on 09/13/18 09:51; Admin Dose 1 UNIT; Start 09/03/18 at 11:50 Miscellaneous Information 1 ea NOTE XX ; Start 09/03/18 at 09:30 Glucose (Glutose) 15 gm Q15M PRN PO DECREASED GLUCOSE; Start 09/03/18 at 09:30 Glucose (Glutose) 22.5 gm Q15M PRN PO DECREASED GLUCOSE; Start 09/03/18 at 0 9:30 Dextrose (D50w Syringe) 25 ml Q15M PRN IV DECREASED GLUCOSE; Start 09/03/18 at 09:30 Dextrose (D50w Syringe) 50 ml Q15M PRN IV DECREASED GLUCOSE; Start 09/03/18 at 09:30 Glucagon (Glucagen) 1 mg Q15M PRN IM DECREASED GLUCOSE; Start 09/03/18 at 09:30 Glucose (Glutose) 15 gm Q15M PRN BUCCAL DECREASED GLUCOSE; Start 09/03/18 at 09:30 Carvedilol (Coreg) 12.5 mg BID PO Last administered on 09/13/18at 09:43; Admin Dose 12.5 MG; Start 09/03/18 at 21:00 Insulin Aspart (Novolog Insulin Pen) 6 unit WITH MEALS SC Last administered on 09/13/18 09:51; Admin Dose 6 UNIT; Start 09/05/18 at 17:55 Insulin Glargine (Lantus) 17 units DAILY@0800 SC Last administered on 09/13/18 09:51; Admin Dose 17 UNITS; Start 09/06/18 at 08:00 Bumetanide (Bumex) 1 mg DAILY PO Last administered on 09/13/18at 09:42; Admin Dose 1 MG; Start 09/13/18 at 09:00 Assessment/Plan Hospital Course (Demo Recall) IMP: 1. ADHF 2. Renal insufficiency. 3. Type 1 diabetes. RECS: 1. Diuresis as per CV 2. follow RF 3. Strict I/O's DC planning okay from pulmonary standpoint CINTIA MAXWELL MD, [facility] Sep 13, 2018 12:06
--- NOTE | 2018-09-13 12:45 | PN ---
DATE: 09/13/2018 SUBJECTIVE: The patient is stable, no events overnight. OBJECTIVE: VITAL SIGNS: Blood pressure is 144/69, respiration 17, pulse 61, temperature 98.0. HEENT: Head is normocephalic. NECK: Supple. HEART: Regular rate. LUNGS: Show diminished breath sounds at the base. ABDOMEN: Soft, nontender to palpation without rebound or guarding. EXTREMITIES: Negative for clubbing, cyanosis, no edema. DERMATOLOGIC: No rashes. MUSCULOSKELETAL: No joint effusion. NEUROLOGIC: No change in exam. MEDICATIONS: Have been reviewed. LABORATORY DATA: Have been reviewed. IMAGING STUDIES: Have been reviewed. ASSESSMENT AND PLAN: 1. Nonoliguric acute kidney injury on top of chronic kidney disease stage IV with previous baseline creatinine around 2.5 mg/dL. Etiology of acute kidney injury is secondary to hemodynamics, cardioren al syndrome. The patient's renal function is slowly improving. We will continue current treatment p lans, supportive care, renally dose all meds. Anticipate reintroducing diuretic therapy soon. 2. Anemia. Monitor hemoglobin and hematocrit levels. 3. Mineral bone disorder. Monitor calcium and phosphorus levels. 4. Heart failure, improving. The patient appears euvolemic on exam. Continue to monitor on diureti c therapy. Defer angiotensin-converting enzyme inhibitor and angiotensin receptor abraham at this ti me. 5. Shortness of breath. Congestive heart failure, improving. Continue to monitor. 6. Diabetes. Continue insulin regimen. 7. Dyslipidemia. Continue statin therapy. 8. Coronary artery disease. 9. Hypertension. Continue current blood pressure regimen. 10. Arrhythmia. Continue to monitor. Follow up with cardiology. Dictated By: CHRISTOPHER MARIO DO NR/NTS Conf#: [id number] DID#: [id number] CC: DALILA TAVERAS MD;*EndCC*
[2018-09-13 15:04] VITALS: BP 137/65; PULSE 60; RESP 18
--- NOTE | 2018-09-13 15:30 | CONS ---
Assessment/Plan Cardiology NYHA: IV Heart Failure Type: Acute on Chronic Heart Failure Type: Both Assessment/Plan Hospital Course (Demo Recall) Acute decompensated systolic congestive heart failure Cardia myopathy with ejection fraction 25% Mild to moderate coronary artery disease left heart catheterization January 2016 History of ventricular tachycardia, with history of LifeVest Acute kidney injury CKD Hypertension Continue Coreg as heart rate and blood pressure permits Titrate Imdur and hydralazine as blood pressure needed Diuretics as tolerated in setting of CKD-being followed by renal Consultation Date/Type/Reason Admit Date/Time Sep 01, 2018 at 19:14 Initial Consult Date 09/02/18 Type of Consult Cardiology Requesting Provider: JAD SHIN NP Date/Time of Note DATE: 09/13/18 TIME: 15:28 24 HR Interval Summary Free Text/Dictation No chest pain, palpitations or shortness of breath at the current time Exam/Review of Systems Vital Signs Vitals Vital Signs Date Temp Pulse Resp B/P (MAP) Pulse Ox O2 O2 Flow FiO2 Time Delivery Rate 09/13/18 97.6 60 18 137/65 96 15:04 (89) 09/13/18 Nasal 2.0 08:06 Cannula Intake and Output 09/12/18 09/12/18 09/13/18 1515:00 23:00 07:00 IntakeIntake Total 650 ml 350 ml OutputOutput Total 300 ml 750 ml 550 ml BalanceBalance 350 ml -400 ml -550 ml Exam Constitutional: alert, oriented (Sitting in chair) Respiratory: other (Coarse breath sounds bilaterally, no wheezing) Cardiovascular: regular rate and rhythm (S1-S2 heard) Gastrointestinal: soft, non-tender, bowel sounds Extremities: edema (Trace) Labs Result Diagram: 09/13/18 0546 09/13/18 0546 Results 24hrs Laboratory Tests Test 09/12/18 17:41 09/12/18 20:11 09/13/18 02:10 09/13/18 05:46 Bedside Glucose 200 182 72 White Blood Count 7.6 Red Blood Count 3.38 L Hemoglobin 8.4 L Hematocrit 27.5 L Mean Corpuscular 81.4 L Volume Mean Corpuscular 24.9 L Hemoglobin Mean Corpuscular 30.5 L Hemoglobin Concent Red Cell 17.2 H Distribution Width Platelet Count 289 Mean Platelet Volume 10.8 H Immature 0.400 Granulocytes % Neutrophils % 75.1 Lymphocytes % 8.6 L Monocytes % 11.6 H Eosinophils % 3.3 Basophils % 1.0 Nucleated Red Blood 0.0 Cells % Immature 0.030 Granulocytes # Neutrophils # 5.7 Lymphocytes # 0.7 L Monocytes # 0.9 Eosinophils # 0.3 Basophils # 0.1 Nucleated Red Blood 0.0 Cells # Sodium Level 138 Potassium Level 4.1 Chloride Level 104 Carbon Dioxide Level 25 Anion Gap 9 Blood Urea Nitrogen 91 H Creatinine 2.59 H Est Glomerular Filtrat Rate mL/min Glucose Level 173 Calcium Level 8.6 Phosphorus Level 4.9 Magnesium Level 2.6 H Test 09/13/18 07:41 09/13/18 12:11 Bedside Glucose 163 161 Medications Medications Current Medications IV Flush (NS 3 ml) 3 ml PER PROTOCOL IV ; Start 09/01/18 at 19:30 Ondansetron HCl (Zofran Inj) 4 mg Q6H PRN IV NAUSEA/VOMITING Last administered on 09/07/18at 12:10; Admin Dose 4 MG; Start 09/01/18 at 19:30 Acetaminophen (Tylenol Tab) 650 mg Q6H PRN PO .PAIN 1-3 OR TEMP; Start 09/01/18 at 19:30 Acetaminophen/ Hydrocodone Bitart ([place] (5/325)) 1 tab Q6H PRN PO .MOD PAIN 4- 6 Last administered on 09/11/18at 06:21; Admin Dose 1 TAB; Start 09/01/18 at 19:30 Morphine Sulfate (morphine) 2 mg Q4H PRN IV .SEVERE PAIN 7-10; Start 09/01/18 at 19:30 Docusate Sodium (Colace) 100 mg Q12H PRN PO .CONSTIPATION; Start 09/01/18 at 19:30 Magnesium Hydroxide (Milk Of Mag) 30 ml DAILY PRN PO .CONSTIPATION; Start 09/01/18 at 19:30 Lorazepam (Ativan) 0.5 mg Q6H PRN IV ANXIETY Last administered on 09/09/18at 23:11; Admin Dose 0.5 MG; Start 09/01/18 at 19:30 Albuterol/ Ipratropium (Duoneb) 3 ml Q4H RESP THERAPY PRN HHN SHORTNESS OF BREATH; Start 09/01/18 at 19:30 Hydralazine HCl (Apresoline) 10 mg Q6H PRN IV ELEVATED BLOOD PRESSURE; Start 09/01/18 at 19:30 Nitroglycerin (Nitroglycerin (Sl Tab) 0.4 Mg) 1 tab Q5M PRN SL ANGINA; Start 09/01/18 at 19:30 Apixaban (Eliquis) 2.5 mg BID PO Last administered on 09/13/18 09:42; Admin Dose 2.5 MG; Start 09/01/18 at 21:00 Atorvastatin Calcium (Lipitor) 40 mg QHS PO Last administered on 09/12/18 20:13; Admin Dose 40 MG; Start 09/01/18 at 21:00 Hydralazine HCl (Apresoline) 100 mg BID PO Last administered on 09/13/18 09:43; Admin Dose 100 MG; Start 09/01/18 at 21:00 Isosorbide Mononitrate (Imdur) 30 mg DAILY PO Last administered on 09/13/18 09:42; Admin Dose 30 MG; Start 09/02/18 at 09:00 Thiamine HCl (Vitamin B1) 100 mg DAILY PO Last administered on 09/13/18 09:43; Admin Dose 100 MG; Start 09/02/18 at 09:00 Fish Oil (Fish Oil) 2,000 mg BID PO Last administered on 09/13/18 09:42; Admin Dose 2,000 MG; Start 09/01/18 at 22:00 Diagnostic Test (Pha) (Accu-Chek) 1 ea 02 XX Last administered on 09/13/18 02:15; Admin Dose 1 EA; Start 09/04/18 at 02:00 Insulin Aspart (Novolog Insulin Pen) NOVOLOG *MILD* ALGORITHM WITH MEALS BEDTIME SC Last administered on 09/13/18at 14:14; Admin Dose 1 UNIT; Start 09/03/18 at 11:50 Miscellaneous Information 1 ea NOTE XX ; Start 09/03/18 at 09:30 Glucose (Glutose) 15 gm Q15M PRN PO DECREASED GLUCOSE; Start 09/03/18 at 09:30 Glucose (Glutose) 22.5 gm Q15M PRN PO DECREASED GLUCOSE; Start 09/03/18 at 09:30 Dextrose (D50w Syringe) 25 ml Q15M PRN IV DECREASED GLUCOSE; Start 09/03/18 at 09:30 Dextrose (D50w Syringe) 50 ml Q15M PRN IV DECREASED GLUCOSE; Start 09/03/18 at 09:30 Glucagon (Glucagen) 1 mg Q15M PRN IM DECREASED GLUCOSE; Start 09/03/18 at 09:30 Glucose (Glutose) 15 gm Q15M PRN BUCCAL DECREASED GLUCOSE; Start 09/03/18 at 09:30 Carvedilol (Coreg) 12.5 mg BID PO Last administered on 09/13/18at 09:43; Admin Dose 12.5 MG; Start 09/03/18 at 21:00 Insulin Aspart (Novolog Insulin Pen) 6 unit WITH MEALS SC Last administered on 09/13/18at 14:13; Admin Dose 6 UNIT; Start 09/05/18 at 17:55 Insulin Glargine (Lantus) 17 units DAILY@0800 SC Last administered on 09/13/18at 09:51; Admin Dose 17 UNITS; Start 09/06/18 at 08:00 Bumetanide (Bumex) 1 mg DAILY PO Last administered on 09/13/18at 09:42; Admin Dose 1 MG; Start 09/13/18 at 09:00 Agustin Traylor DO Sep 13, 2018 15:30
--- NOTE | 2018-09-13 16:46 | PN ---
Date/Time of Note Date/Time of Note DATE: 09/13/18 TIME: 16:45 Assessment/Plan VTE Prophylaxis Risk score (from Ns)>0 risk: 8 SCD applied (from Ns): Yes Pharmacological prophylaxis: apixaban Lines/Catheters IV Catheter Type (from Nrs): Saline Lock Urinary Cath still in place: No Assessment/Plan Hospital Course Assessment plan #Chest pain ACS ruled out Research And Development Researcher following #CHF Acute on chronic CHF Diuretics as renal function tolerates #History of sustained VT Patient did have history of sustained VT on March 22, 2018 status post LifeVest placement in March 2018. Patient currently has a LifeVest in place. Monitor on telemetry. Follow inspector of dredging recommendations #Cardiomyopathy EF of 30% Continue beta-abraham LOLY/ARB on hold due to CKD #Hypertension Continue antihypertensives #Diabetes A1c of 9.7 Continue insulin regimen #CAD Patient status post coronary artery stenting Continue antiplatelet therapy #CKD Monitor renal function. Telephone Service Representative following. #Hyperlipidemia Continue on statin and fish oil Disposition and plan. Patient still noted with dyspnea on exertion. Continue with O2 supplement.. Awaiting possible snf placement . continue supportive care. f/u case management Discussed POC with Dr. Reese Result Diagram: 09/13/18 0546 09/13/18 0546 Results 24hrs Laboratory Tests Test 09/12/18 17:41 09/12/18 20:11 09/13/18 02:10 09/13/18 05:46 Bedside Glucose 200 182 72 White Blood Count 7.6 Red Blood Count 3.38 L Hemoglobin 8.4 L Hematocrit 27.5 L Mean Corpuscular 81.4 L Volume Mean Corpuscular 24.9 L Hemoglobin Mean Corpuscular 30.5 L Hemoglobin Concent Red Cell 17.2 H Distribution Width Platelet Count 289 Mean Platelet Volume 10.8 H Immature 0.400 Granulocytes % Neutrophils % 75.1 Lymphocytes % 8.6 L Monocytes % 11.6 H Eosinophils % 3.3 Basophils % 1.0 Nucleated Red Blood 0.0 Cells % Immature 0.030 Granulocytes # Neutrophils # 5.7 Lymphocytes # 0.7 L Monocytes # 0.9 Eosinophils # 0.3 Basophils # 0.1 Nucleated Red Blood 0.0 Cells # Sodium Level 138 Potassium Level 4.1 Chloride Level 104 Carbon Dioxide Level 25 Anion Gap 9 Blood Urea Nitrogen 91 H Creatinine 2.59 H Est Glomerular Filtrat Rate mL/min Glucose Level 173 Calcium Level 8.6 Phosphorus Level 4.9 Magnesium Level 2.6 H Test 09/13/18 07:41 09/13/18 12:11 Bedside Glucose 163 161 Subjective 24 Hr Interval Summary Free Text/Dictation Patient still reports shortness of breath even lying down. Note denies any ches t pain Exam/Review of Systems Exam Vitals Vital Signs Date Temp Pulse Resp B/P (MAP) Pulse Ox O2 O2 Flow FiO2 Time Delivery Rate 09/13/18 97.6 60 18 137/65 96 15:04 (89) 09/13/18 Nasal 2.0 08:06 Cannula Intake and Output 09/12/18 09/12/18 09/13/18 1515:00 23:00 07:00 IntakeIntake Total 650 ml 350 ml OutputOutput Total 300 ml 750 ml 550 ml BalanceBalance 350 ml -400 ml -550 ml Exam Constitutional: alert, oriented Psych: nl mood/affect Eyes: nl conjunctiva Respiratory: diminished breath sounds Cardiovascular: other (regular rate ) Gastrointestinal: soft, non-tender Extremities: edema Neurological: [employer]ILY [employer] [place] II-XII intact, nl mental status, nl speech Results Results 24hrs Laboratory Tests Test 09/12/18 17:41 09/12/18 20:11 09/13/18 02:10 09/13/18 05:46 Bedside Glucose 200 182 72 White Blood Count 7.6 Red Blood Count 3.38 L Hemoglobin 8.4 L Hematocrit 27.5 L Mean Corpuscular 81.4 L Volume Mean Corpuscular 24.9 L Hemoglobin Mean Corpuscular 30.5 L Hemoglobin Concent Red Cell 17.2 H Distribution Width Platelet Count 289 Mean Platelet Volume 10.8 H Immature 0.400 Granulocytes % Neutrophils % 75.1 Lymphocytes % 8.6 L Monocytes % 11.6 H Eosinophils % 3.3 Basophils % 1.0 Nucleated Red Blood 0.0 Cells % Immature 0.030 Granulocytes # Neutrophils # 5.7 Lymphocytes # 0.7 L Monocytes # 0.9 Eosinophils # 0.3 Basophils # 0.1 Nucleated Red Blood 0.0 Cells # Sodium Level 138 Potassium Level 4.1 Chloride Level 104 Carbon Dioxide Level 25 Anion Gap 9 Blood Urea Nitrogen 91 H Creatinine 2.59 H Est Glomerular Filtrat Rate mL/min Glucose Level 173 Calcium Level 8.6 Phosphorus Level 4.9 Magnesium Level 2.6 H Test 09/13/18 07:41 09/13/18 12:11 Bedside Glucose 163 161 Medications Medication Current Medications IV Flush (NS 3 ml) 3 ml PER PROTOCOL IV ; Start 09/01/18 at 19:30 Ondansetron HCl (Zofran Inj) 4 mg Q6H PRN IV NAUSEA/VOMITING Last administered on 09/07/18 12:10; Admin Dose 4 MG; Start 09/01/18 at 19:30 Acetaminophen (Tylenol Tab) 650 mg Q6H PRN PO .PAIN 1-3 OR TEMP; Start 09/01/18 at 19:30 Acetaminophen/ Hydrocodone Bitart ([place] (5/325)) 1 tab Q6H PRN PO .MOD PAIN 4- 6 Last administered on 09/11/18 06:21; Admin Dose 1 TAB; Start 09/01/18 at 19:30 Morphine Sulfate (morphine) 2 mg Q4H PRN IV .SEVERE PAIN 7-10; Start 09/01/18 at 19:30 Docusate Sodium (Colace) 100 mg Q12H PRN PO .CONSTIPATION; Start 09/01/18 at 19:30 Magnesium Hydroxide (Milk Of Mag) 30 ml DAILY PRN PO .CONSTIPATION; Start 09/01/18 at 19:30 Lorazepam (Ativan) 0.5 mg Q6H PRN IV ANXIETY Last administered on 09/09/18at 23:11; Admin Dose 0.5 MG; Start 09/01/18 at 19:30 Albuterol/ Ipratropium (Duoneb) 3 ml Q4H RESP THERAPY PRN HHN SHORTNESS OF B REATH; Start 09/01/18 at 19:30 Hydralazine HCl (Apresoline) 10 mg Q6H PRN IV ELEVATED BLOOD PRESSURE; Start 09/01/18 at 19:30 Nitroglycerin (Nitroglycerin (Sl Tab) 0.4 Mg) 1 tab Q5M PRN SL ANGINA; Start 09/01/18 at 19:30 Apixaban (Eliquis) 2.5 mg BID PO Last administered on 09/13/18 09:42; Admin Dose 2.5 MG; Start 09/01/18 at 21:00 Atorvastatin Calcium (Lipitor) 40 mg QHS PO Last administered on 09/12/18 20:13; Admin Dose 40 MG; Start 09/01/18 at 21:00 Hydralazine HCl (Apresoline) 100 mg BID PO Last administered on 09/13/18 09:43; Admin Dose 100 MG; Start 09/01/18 at 21:00 Isosorbide Mononitrate (Imdur) 30 mg DAILY PO Last administered on 09/13/18 09:42; Admin Dose 30 MG; Start 09/02/18 at 09:00 Thiamine HCl (Vitamin B1) 100 mg DAILY PO Last administered on 09/13/18 09:43; Admin Dose 100 MG; Start 09/02/18 at 09:00 Fish Oil (Fish Oil) 2,000 mg BID PO Last administered on 09/13/18 09:42; Admin Dose 2,000 MG; Start 09/01/18 at 22:00 Diagnostic Test (Pha) (Accu-Chek) 1 ea 02 XX Last administered on 09/13/18 02:15; Admin Dose 1 EA; Start 09/04/18 at 02:00 Insulin Aspart (Novolog Insulin Pen) NOVOLOG *MILD* ALGORITHM WITH MEALS BEDTIME SC Last administered on 09/13/18 14:14; Admin Dose 1 UNIT; Start 09/03/18 at 11:50 Miscellaneous Information 1 ea NOTE XX ; Start 09/03/18 at 09:30 Glucose (Glutose) 15 gm Q15M PRN PO DECREASED GLUCOSE; Start 09/03/18 at 09:30 Glucose (Glutose) 22.5 gm Q15M PRN PO DECREASED GLUCOSE; Start 09/03/18 at 09:30 Dextrose (D50w Syringe) 25 ml Q15M PRN IV DECREASED GLUCOSE; Start 09/03/18 at 09:30 Dextrose (D50w Syringe) 50 ml Q15M PRN IV DECREASED GLUCOSE; Start 09/03/18 at 09:30 Glucagon (Glucagen) 1 mg Q15M PRN IM DECREASED GLUCOSE; Start 09/03/18 at 09:30 Glucose (Glutose) 15 gm Q15M PRN BUCCAL DECREASED GLUCOSE; Start 09/03/18 at 09:30 Carvedilol (Coreg) 12.5 mg BID PO Last administered on 09/13/18 09:43; Admin Dose 12.5 MG; Start 09/03/18 at 21:00 Insulin Aspart (Novolog Insulin Pen) 6 unit WITH MEALS SC Last administered on 09/13/18at 14:13; Admin Dose 6 UNIT; Start 09/05/18 at 17:55 Insulin Glargine (Lantus) 17 units DAILY@0800 SC Last administered on 09/13/18at 09:51; Admin Dose 17 UNITS; Start 09/06/18 at 08:00 Bumetanide (Bumex) 1 mg DAILY PO Last administered on 09/13/18at 09:42; Admin Dose 1 MG; Start 09/13/18 at 09:00 JAD SHIN NP Sep 13, 2018 16:46
[2018-09-13 20:31] VITALS: BP 144/76; PULSE 60; RESP 20
[2018-09-13] MEDS: ATORVASTATIN 40 MG TAB PO SCH (21:02)
[2018-09-14 00:34] VITALS: BP 143/77; PULSE 60; RESP 20
[2018-09-14] MEDS: ACCU-CHEK XX SCH (02:00)
[2018-09-14 04:10] VITALS: BP 114/89; PULSE 129; RESP 20
[2018-09-14 04:50] VITALS: BP 138/72; PULSE 61; RESP 20
[2018-09-14 07:46] VITALS: BP 149/77; PULSE 60; RESP 20
[2018-09-14] MEDS: THIAMINE 100 MG TAB PO SCH (08:03)
[2018-09-14] MEDS: FISH OIL 1,000 MG CAP PO SCH (08:03)
[2018-09-14] MEDS: APIXABAN 5 MG TABLET PO SCH (08:04)
[2018-09-14] MEDS: BUMETANIDE 1 MG TAB PO SCH (08:04)
[2018-09-14] MEDS: ISOSORBIDE MONONITRATE(SR)30 MG TAB PO SCH (08:04)
[2018-09-14] MEDS: INSULIN ASPART [NOVOLOG] 3 ML PEN SC SCH ×6 (08:09→17:27)
[2018-09-14] MEDS: INSULIN GLARGINE [LANTus] (100 UNITS/ML) SYG SC SCH (08:09)
--- NOTE | 2018-09-14 08:39 | PN ---
DATE: 09/14/2018 SUBJECTIVE: The patient is stable, no events overnight. No fevers, chills, nausea, vomiting. OBJECTIVE: VITAL SIGNS: Blood pressure is 138/72, respirations 20, pulse 61, temperature 97.6. HEENT: Head is normocephalic. NECK: Supple. HEART: Regular rate. LUNGS: Show diminished breath sounds at the base. ABDOMEN: Soft, nontender to palpation without rebound or guarding. EXTREMITIES: Negative for clubbing, cyanosis, no edema. DERMATOLOGIC: No rashes. MUSCULOSKELETAL: No joint effusion. NEUROLOGIC: No change in exam. MEDICATIONS: The patient's medications have been reviewed. LABORATORY DATA: Has been reviewed. IMAGING STUDIES: Have been reviewed. ASSESSMENT AND PLAN: 1. Nonoliguric acute kidney injury on top of CKD stage IV, with previous baseline creatinine around 2.5 mg/dL. Etiology of ABDI is secondary to hemodynamics, cardiorenal syndrome. Renal function has s lowly been improving. Continue current treatment plan and supportive care and renally dose all meds. Monitor closely on diuretic therapy. 2. Anemia. Monitor hemoglobin and hematocrit levels. 3. Mineral bone disorder, monitor calcium and phosphorus levels. 4. Acute on chronic heart failure. The patient has been resumed on diuretic therapy, monitor closel y. Defer any LOLY inhibitor or ARB at this time. 5. Shortness of breath, secondary to CHF, improving. 6. Diabetes. Continue current insulin regimen. 7. Dyslipidemia. Continue statin therapy. 8. Coronary artery disease. , continue current blood pressure regimen. 9. Arrhythmia. Continue to monitor. Follow up with cardiology. Dictated By: CHRISTOPHER MARIO DO NR/NTS Conf#: [id number] DID#: [id number] CC: JIMY WAYNE DO; DALILA TAVERAS MD;*EndCC*
--- NOTE | 2018-09-14 11:30 | CONS ---
Consult Date/Type/Reason Admit Date/Time Sep 01, 2018 at 19:14 Initial Consult Date 09/02/18 Type of Consult Pulmonary Requesting Provider: JAD SHIN NP Date/Time of Note DATE: 09/14/18 TIME: 11:30 Subjective Patient appears comfortable this morning no new events Objective Vital Signs Date Temp Pulse Resp B/P (MAP) Pulse Ox O2 O2 Flow FiO2 Time Delivery Rate 09/14/18 Nasal 2.0 08:00 Cannula 09/14/18 98.0 60 20 149/77 98 07:46 (101) Intake and Output 09/13/18 09/13/18 09/14/18 1515:00 23:00 07:00 IntakeIntake Total 433 ml 300 ml 200 ml OutputOutput Total 200 ml 500 ml 500 ml BalanceBalance 233 ml -200 ml -300 ml Exam GENERAL: Elderly appearing gentleman appears comfortable at rest VITAL SIGNS: per chart NECK: Supple. No JVD or lymphadenopathy. CARDIAC EXAM: S1, S2. No added sounds or murmurs. CHEST: Diminished air entry bilaterally ABDOMEN: Soft, nontender. No guarding or rebound. EXTREMITIES: No cyanosis, clubbing or edema. NEUROLOGIC: Generalized weakness. No focal deficits. Vent Setting Fraction of Inspired Oxygen pe: 27 Results/Medications Result Diagram: 09/14/18 0614 09/14/18 0614 Results 24 hrs Laboratory Tests Test 09/13/18 12:11 09/13/18 17:32 09/13/18 20:55 09/14/18 02:16 Bedside Glucose 161 133 133 83 Test 09/14/18 06:14 09/14/18 07:52 White Blood Count 7.2 Red Blood Count 3.18 L Hemoglobin 7.9 L Hematocrit 26.0 L Mean Corpuscular 81.8 L Volume Mean Corpuscular 24.8 L Hemoglobin Mean Corpuscular 30.4 L Hemoglobin Concent Red Cell Distribution 17.3 H Width Platelet Count 266 Mean Platelet Volume 10.4 Immature Granulocytes 0.400 % Neutrophils % 71.8 Lymphocytes % 10.8 L Monocytes % 11.9 H Eosinophils % 4.3 Basophils % 0.8 Nucleated Red Blood 0.0 Cells % Immature Granulocytes 0.030 # Neutrophils # 5.2 Lymphocytes # 0.8 Monocytes # 0.9 Eosinophils # 0.3 Basophils # 0.1 Nucleated Red Blood 0.0 Cells # Sodium Level 140 Potassium Level 3.8 Chloride Level 104 Carbon Dioxide Level 26 Anion Gap 10 Blood Urea Nitrogen 83 H Creatinine 2.48 H Est Glomerular Filtrat Rate mL/min Glucose Level 148 Calcium Level 8.5 Phosphorus Level 4.5 Magnesium Level 2.4 Bedside Glucose 143 Medications Current Medications IV Flush (NS 3 ml) 3 ml PER PROTOCOL IV ; Start 09/01/18 at 19:30 Ondansetron HCl (Zofran Inj) 4 mg Q6H PRN IV NAUSEA/VOMITING Last administered on 09/07/18at 12:10; Admin Dose 4 MG; Start 09/01/18 at 19:30 Acetaminophen (Tylenol Tab) 650 mg Q6H PRN PO .PAIN 1-3 OR TEMP; Start 09/01/18 at 19:30 Acetaminophen/ Hydrocodone Bitart ([place] (5/325)) 1 tab Q6H PRN PO .MOD PAIN 4- 6 Last administered on 09/11/18at 06:21; Admin Dose 1 TAB; Start 09/01/18 at 19:30 Morphine Sulfate (morphine) 2 mg Q4H PRN IV .SEVERE PAIN 7-10; Start 09/01/18 at 19:30 Docusate Sodium (Colace) 100 mg Q12H PRN PO .CONSTIPATION; Start 09/01/18 at 19:30 Magnesium Hydroxide (Milk Of Mag) 30 ml DAILY PRN PO .CONSTIPATION; Start 09/01/18 at 19:30 Lorazepam (Ativan) 0.5 mg Q6H PRN IV ANXIETY Last administered on 09/09/18at 23: 11; Admin Dose 0.5 MG; Start 09/01/18 at 19:30 Albuterol/ Ipratropium (Duoneb) 3 ml Q4H RESP THERAPY PRN HHN SHORTNESS OF BREATH; Start 09/01/18 at 19:30 Hydralazine HCl (Apresoline) 10 mg Q6H PRN IV ELEVATED BLOOD PRESSURE; Start 09/01/18 at 19:30 Nitroglycerin (Nitroglycerin (Sl Tab) 0.4 Mg) 1 tab Q5M PRN SL ANGINA; Start 09/01/18 at 19:30 Apixaban (Eliquis) 2.5 mg BID PO Last administered on 09/14/18at 08:04; Admin Dose 2.5 MG; Start 09/01/18 at 21:00 Atorvastatin Calcium (Lipitor) 40 mg QHS PO Last administered on 09/13/18 21:02; Admin Dose 40 MG; Start 09/01/18 at 21:00 Hydralazine HCl (Apresoline) 100 mg BID PO Last administered on 09/14/18 08:04; Admin Dose 100 MG; Start 09/01/18 at 21:00 Isosorbide Mononitrate (Imdur) 30 mg DAILY PO Last administered on 09/14/18 08:04; Admin Dose 30 MG; Start 09/02/18 at 09:00 Thiamine HCl (Vitamin B1) 100 mg DAILY PO Last administered on 09/14/18 08:03; Admin Dose 100 MG; Start 09/02/18 at 09:00 Fish Oil (Fish Oil) 2,000 mg BID PO Last administered on 09/14/18 08:03; Admin Dose 2,000 MG; Start 09/01/18 at 22:00 Diagnostic Test (Pha) (Accu-Chek) 1 ea 02 XX Last administered on 09/14/18at 02:00; Admin Dose 1 EA; Start 09/04/18 at 02:00 Insulin Aspart (Novolog Insulin Pen) NOVOLOG *MILD* ALGORITHM WITH MEALS BEDTIME SC Last administered on 09/14/18 08:09; Admin Dose 1 UNIT; Start 09/03/18 at 11:50 Miscellaneous Information 1 ea NOTE XX ; Start 09/03/18 at 09:30 Glucose (Glutose) 15 gm Q15M PRN PO DECREASED GLUCOSE; Start 09/03/18 at 09:30 Glucose (Glutose) 22.5 gm Q15M PRN PO DECREASED GLUCOSE; Start 09/03/18 at 09:30 Dextrose (D50w Syringe) 25 ml Q15M PRN IV DECREASED GLUCOSE; Start 09/03/18 at 09:30 Dextrose (D50w Syringe) 50 ml Q15M PRN IV DECREASED GLUCOSE; Start 09/03/18 at 09:30 Glucagon (Glucagen) 1 mg Q15M PRN IM DECREASED GLUCOSE; Start 09/03/18 at 09:30 Glucose (Glutose) 15 gm Q15M PRN BUCCAL DECREASED GLUCOSE; Start 09/03/18 at 09:30 Carvedilol (Coreg) 12.5 mg BID PO Last administered on 09/14/18at 08:12; Admin Dose 12.5 MG; Start 09/03/18 at 21:00 Insulin Aspart (Novolog Insulin Pen) 6 unit WITH MEALS SC Last administered on 09/14/18at 08:09; Admin Dose 6 UNIT; Start 09/05/18 at 17:55 Insulin Glargine (Lantus) 17 units DAILY@0800 SC Last administered on 09/14/18at 08:09; Admin Dose 17 UNITS; Start 09/06/18 at 08:00 Bumetanide (Bumex) 1 mg DAILY PO Last administered on 09/14/18at 08:04; Admin Dos e 1 MG; Start 09/13/18 at 09:00 Assessment/Plan Hospital Course (Demo Recall) IMP: 1. ADHF 2. Renal insufficiency. 3. Type 1 diabetes. RECS: 1. Diuresis as per CV 2. follow RF 3. Strict I/O's DC planning okay from pulmonary standpoint SNF placement. Monitor H&H. CINTIA MAXWELL MD, [facility] Sep 14, 2018 11:30
[2018-09-14 12:00] VITALS: BP 136/70; RESP 20
--- NOTE | 2018-09-14 14:29 | PN ---
Date/Time of Note Date/Time of Note DATE: 09/14/18 TIME: 14:27 Assessment/Plan VTE Prophylaxis Risk score (from Ns)>0 risk: 3 SCD applied (from Ns): Yes Pharmacological prophylaxis: apixaban Lines/Catheters IV Catheter Type (from Nrs): Saline Lock Urinary Cath still in place: No Assessment/Plan Hospital Course Assessment plan #Chest pain ACS ruled out Controlled Area Checker following #CHF Acute on chronic CHF Diuretics as renal function tolerates #History of sustained VT Patient did have history of sustained VT on March 22, 2018 status post LifeVest placement in March 2018. Patient currently has a LifeVest in place. Monitor on telemetry. Follow waste treatment operator recommendations #Cardiomyopathy EF of 30% Continue beta-abraham LOLY/ARB on hold due to CKD #Hypertension Continue antihypertensives #Diabetes A1c of 9.7 Continue insulin regimen #CAD Patient status post coronary artery stenting Continue antiplatelet therapy #CKD Monitor renal function. 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 #Hyperlipidemia Continue on statin and fish oil Disposition and plan. Appears more dyspneic. Continue with O2 supplement. f/u chest imaging. PT to follow evaluation of safety for possible home d/c Discussed POC with Dr. Reese Result Diagram: 09/14/18 0614 09/14/1814 Results 24hrs Laboratory Tests Test 09/13/18 17:32 09/13/18 20:55 09/14/18 02:16 09/14/18 06:14 Bedside Glucose 133 133 83 White Blood Count 7.2 Red Blood Count 3.18 L Hemoglobin 7.9 L Hematocrit 26.0 L Mean Corpuscular 81.8 L Volume Mean Corpuscular 24.8 L Hemoglobin Mean Corpuscular 30.4 L Hemoglobin Concent Red Cell Distribution 17.3 H Width Platelet Count 266 Mean Platelet Volume 10.4 Immature Granulocytes 0.400 % Neutrophils % 71.8 Lymphocytes % 10.8 L Monocytes % 11.9 H Eosinophils % 4.3 Basophils % 0.8 Nucleated Red Blood 0.0 Cells % Immature Granulocytes 0.030 # Neutrophils # 5.2 Lymphocytes # 0.8 Monocytes # 0.9 Eosinophils # 0.3 Basophils # 0.1 Nucleated Red Blood 0.0 Cells # Sodium Level 140 Potassium Level 3.8 Chloride Level 104 Carbon Dioxide Level 26 Anion Gap 10 Blood Urea Nitrogen 83 H Creatinine 2.48 H Est Glomerular Filtrat Rate mL/min Glucose Level 148 Calcium Level 8.5 Phosphorus Level 4.5 Magnesium Level 2.4 Test 09/14/18 07:52 09/14/18 12:17 Bedside Glucose 143 149 Subjective 24 Hr Interval Summary Free Text/Dictation Still short of breath even when talking Exam/Review of Systems Exam Vitals Vital Signs Date Temp Pulse Resp B/P (MAP) Pulse Ox O2 O2 Flow FiO2 Time Delivery Rate 09/14/18 98.0 20 136/70 99 Nasal 12:00 (92) Cannula 09/14/18 2.0 08:00 09/14/18 60 07:46 Intake and Output 09/13/18 09/13/18 09/14/18 1515:00 23:00 07:00 IntakeIntake Total 433 ml 300 ml 200 ml OutputOutput Total 200 ml 500 ml 500 ml BalanceBalance 233 ml -200 ml -300 ml Exam Constitutional: alert, oriented Psych: nl mood/affect Eyes: nl conjunctiva Respiratory: diminished breath sounds Cardiovascular: other (regular rate ) Gastrointestinal: soft, non-tender Extremities: edema Neurological: PRESSURE WASHER II-XII intact, nl mental status, nl speech Results Results 24hrs Laboratory Tests Test 09/13/18 17:32 09/13/18 20:55 09/14/18 02:16 09/14/18 06:14 Bedside Glucose 133 133 83 White Blood Count 7.2 Red Blood Count 3.18 L Hemoglobin 7.9 L Hematocrit 26.0 L Mean Corpuscular 81.8 L Volume Mean Corpuscular 24.8 L Hemoglobin Mean Corpuscular 30.4 L Hemoglobin Concent Red Cell Distribution 17.3 H Width Platelet Count 266 Mean Platelet Volume 10.4 Immature Granulocytes 0.400 % Neutrophils % 71.8 Lymphocytes % 10.8 L Monocytes % 11.9 H Eosinophils % 4.3 Basophils % 0.8 Nucleated Red Blood 0.0 Cells % Immature Granulocytes 0.030 # Neutrophils # 5.2 Lymphocytes # 0.8 Monocytes # 0.9 Eosinophils # 0.3 Basophils # 0.1 Nucleated Red Blood 0.0 Cells # Sodium Level 140 Potassium Level 3.8 Chloride Level 104 Carbon Dioxide Level 26 Anion Gap 10 Blood Urea Nitrogen 83 H Creatinine 2.48 H Est Glomerular Filtrat Rate mL/min Glucose Level 148 Calcium Level 8.5 Phosphorus Level 4.5 Magnesium Level 2.4 Test 09/14/18 07:52 09/14/18 12:17 Bedside Glucose 143 149 Medications Medication Current Medications IV Flush (NS 3 ml) 3 ml PER PROTOCOL IV ; Start 09/01/18 at 19:30 Ondansetron HCl (Zofran Inj) 4 mg Q6H PRN IV NAUSEA/VOMITING Last administered on 09/07/18at 12:10; Admin Dose 4 MG; Start 09/01/18 at 19:30 Acetaminophen (Tylenol Tab) 650 mg Q6H PRN PO .PAIN 1-3 OR TEMP; Start 09/01/18 at 19:30 Acetaminophen/ Hydrocodone Bitart ([place] (5/325)) 1 tab Q6H PRN PO .MOD PAIN 4- 6 Last administered on 09/11/18at 06:21; Admin Dose 1 TAB; Start 09/01/18 at 19:30 Morphine Sulfate (morphine) 2 mg Q4H PRN IV .SEVERE PAIN 7-10; Start 09/01/18 at 19:30 Docusate Sodium (Colace) 100 mg Q12H PRN PO .CONSTIPATION; Start 09/01/18 at 19:30 Magnesium Hydroxide (Milk Of Mag) 30 ml DAILY PRN PO .CONSTIPATION; Start 09/01/18 at 19:30 Lorazepam (Ativan) 0.5 mg Q6H PRN IV ANXIETY Last administered on 09/09/18at 23:11; Admin Dose 0.5 MG; Start 09/01/18 at 19:30 Albuterol/ Ipratropium (Duoneb) 3 ml Q4H RESP THERAPY PRN HHN SHORTNESS OF BREATH; Start 09/01/18 at 19:30 Hydralazine HCl (Apresoline) 10 mg Q6H PRN IV ELEVATED BLOOD PRESSURE; Start 09/01/18 at 19:30 Nitroglycerin (Nitroglycerin (Sl Tab) 0.4 Mg) 1 tab Q5M PRN SL ANGINA; Start 09/01/18 at 19:30 Apixaban (Eliquis) 2.5 mg BID PO Last administered on 09/14/18at 08:04; Admin Dose 2.5 MG; Start 09/01/18 at 21:00 Atorvastatin Calcium (Lipitor) 40 mg QHS PO Last administered on 09/13/18at 21:02; Admin Dose 40 MG; Start 09/01/18 at 21:00 Hydralazine HCl (Apresoline) 100 mg BID PO Last administered on 09/14/18 08:04; Admin Dose 100 MG; Start 09/01/18 at 21:00 Isosorbide Mononitrate (Imdur) 30 mg DAILY PO Last administered on 09/14/18 08:04; Admin Dose 30 MG; Start 09/02/18 at 09:00 Thiamine HCl (Vitamin B1) 100 mg DAILY PO Last administered on 09/14/18 08:03; Admin Dose 100 MG; Start 09/02/18 at 09:00 Fish Oil (Fish Oil) 2,000 mg BID PO Last administered on 09/14/18 08:03; Admin Dose 2,000 MG; Start 09/01/18 at 22:00 Diagnostic Test (Pha) (Accu-Chek) 1 ea 02 XX Last administered on 09/14/18 02:00; Admin Dose 1 EA; Start 09/04/18 at 02:00 Insulin Aspart (Novolog Insulin Pen) NOVOLOG *MILD* ALGORITHM WITH MEALS BEDTIME SC Last administered on 09/14/18 12:22; Admin Dose 1 UNIT; Start 09/03/18 at 11:50 Miscellaneous Information 1 ea NOTE XX ; Start 09/03/18 at 09:30 Glucose (Glutose) 15 gm Q15M PRN PO DECREASED GLUCOSE; Start 09/03/18 at 09:30 Glucose (Glutose) 22.5 gm Q15M PRN PO DECREASED GLUCOSE; Start 09/03/18 at 09:30 Dextrose (D50w Syringe) 25 ml Q15M PRN IV DECREASED GLUCOSE; Start 09/03/18 at 09:30 Dextrose (D50w Syringe) 50 ml Q15M PRN IV DECREASED GLUCOSE; Start 09/03/18 at 09:30 Glucagon (Glucagen) 1 mg Q15M PRN IM DECREASED GLUCOSE; Start 09/03/18 at 09:30 Glucose (Glutose) 15 gm Q15M PRN BUCCAL DECREASED GLUCOSE; Start 09/03/18 at 09:30 Carvedilol (Coreg) 12.5 mg BID PO Last administered on 09/14/18 08:12; Admin Dose 12.5 MG; Start 09/03/18 at 21:00 Insulin Aspart (Novolog Insulin Pen) 6 unit WITH MEALS SC Last administered on 09/14/18 12:22; Admin Dose 6 UNIT; Start 09/05/18 at 17:55 Insulin Glargine (Lantus) 17 units DAILY@0800 SC Last administered on 09/14/18 08:09; Admin Dose 17 UNITS; Start 09/06/18 at 08:00 Bumetanide (Bumex) 1 mg DAILY PO Last administered on 09/14/18 08:04; Admin Dose 1 MG; Start 09/13/18 at 09:00 JAD SHIN NP Sep 14, 2018 14:29
[2018-09-14 15:28] VITALS: BP 143/67; PULSE 59; RESP 20
--- NOTE | 2018-09-14 16:00 | PDOCDIS ---
Discharge Instructions DIAGNOSIS Discharge Diagnosis #Chest pain #CHF #History of sustained VT #Cardiomyopathy EF of 30% #Hypertension #Diabetes A1c of 9.7 #CAD #CKD #Hyperlipidemia CONDITION [id number] Patient Condition: [id number] Stable HOME CARE INSTRUCTIONS: [id number] Diet Instructions: [id number] Low Fat /Cholesterol [id number] Special Diet: [id number] carbohydrate controlled FOLLOW UP/APPOINTMENTS Follow-up Plan 1. Follow up with Dr. Agustin Traylor in one week JAD SHIN NP Sep 14, 2018 16:00
--- NOTE | 2018-09-15 07:58 | DS ---
Date/Time of Note Date/Time of Note DATE: 09/15/18 TIME: 07:56 Discharge Summary Admission/Discharge Info Admit Date/Time Sep 01, 2018 at 19:14 Discharge Date/Time Sep 14, 2018 at 20:03 Discharge Diagnosis #Chest pain #CHF #History of sustained VT #Cardiomyopathy EF of 30% #Hypertension #Diabetes A1c of 9.7 #CAD #CKD #Hyperlipidemia Patient Condition: Stable Hospital Course This is a 72-year-old male with history of cardiomyopathy with EF of 20%, type 1 diabetes, hypertension, hyperlipidemia, NSVT, CAD, CKD, hospital due to worsening shortness of breath and chest pain. He was discharged roughly a month prior to this admission for CHF exacerbation. He did report that his symptoms got worse when supine. As such was brought to the hospital for further evaluation. Patient was seen by brass molder as well as by engineering analyst and floor helper while in-house. He was noted with again CHF exacerbation. We did rule out ACS. We did optimize him with his cardiovascular medications. We did provide him with diuretics as his renal function did tolerate. His renal function did slowly improve while in-house. Likely his ABDI was secondary to hemodynamics and possibly cardiorenal syndrome. Patient was also advised with physical therapy. He was noted to be still weak with notable dyspnea on exertion and we did advise patient and offer him possible intermediate facility options. After discussion with outsole caser and the patient he was amenable to going to intermediate facility. He was otherwise optimized medically with antihypertensives for high blood pressure and insulin for his diabetes. He was also resumed on antiplatelet therapy for his CAD. He was also continued on fish oil and statin for his hyperlipidemia. The plan of care was discussed with patient patient did verbalize his understanding. On the day of discharge patient was in stable condition Discussed POC with Dr. Reese [facility] Insulin Aspart* (Novolog Insulin Pen*) 100 Unit/Ml Soln, 6 UNIT SC WITH MEALS for 30 Days Prov:JAD SHIN NP 09/14/18 [Insulin Glargine] 100 UNITS/ML SOLN No Conflict Check, 17 UNITS SC DAILY@0800 for 30 Days Prov:JAD SHIN NP 09/14/18 Bumetanide* (Bumetanide*) 1 Mg Tablet, 1 MG PO DAILY, #30 TAB Prov:JAD SHIN NP 09/14/18 Seibert-3/Dha/Epa/Fish Oil (Fish Oil 1,000 mg Softgel) 1,000 Mg Capsule, 2000 MG PO BID, #30 CAP Prov:NITIN SHINDAPHNEY SILVER 09/14/18 Carvedilol* (Carvedilol*) 12.5 Mg Tablet, 12.5 MG PO BID, #60 TAB Prov:LUCIOJAD GARSIA NP 09/14/18 Thiamine* (Thiamine*) 100 Mg Tablet, 100 MG PO DAILY for 30 Days, #30 TAB Prov:CHUY HORTON MD 04/01/18 Reported Medications Apixaban* (Eliquis*) 2.5 Mg Tablet, 2.5 MG PO BID, TAB 06/07/18 Hydralazine Hcl* (Hydralazine Hcl*) 100 Mg Tablet, 100 MG PO BID, #90 TAB 06/07/18 Isosorbide Mononitrate* (Isosorbide Mononitrate*) 30 Mg Tab.er.24h, 30 MG PO DAILY, TAB 03/20/18 Atorvastatin* (Atorvastatin*) 40 Mg Tablet, 40 MG PO QHS, #30 TAB 03/04/18 Discontinued Reported Medications Bumetanide* (Bumetanide*) 1 Mg Tablet, 1 MG PO BID, TAB 09/01/18 Liraglutide (Victoza 3-Donnie) 0.6 Mg/0.1 Ml Pen.injctr, 1.8 MG SQ BID, SYR 07/30/18 Seibert-3 Acid Ethyl Esters (Lovaza) 1 Gm Capsule, 2 GM PO BID, CAP 07/30/18 Carvedilol* (Carvedilol*) 6.25 Mg Tablet, 6.25 MG PO BID, #60 TAB 06/07/18 Aspirin* (Aspirin* EC) 81 Mg Tablet.dr, 81 MG PO DAILY, TAB 03/04/18 Insulin Glargine,Hum.rec.anlog (Chhaya Boswell) 300 Unit/1 Ml Insuln.pen, 42 UNIT SQ QPM, EA 03/04/18 Follow-up Plan 1. Follow up with Dr. Agustin Traylor in one week Primary Care Provider Not On Staff Doctor Time spent on discharge: > 30 minutes Pending Labs Laboratory Tests Test 09/14/18 12:17 09/14/18 17:11 Bedside Glucose 149 mg/dL (70-220) 171 mg/dL (70-220) JAD SHIN NP Sep 15, 2018 07:58
== END 2018-09-14 20:03 | DRG 291 ==
LOC: E/R 16:14 → TEL 19:14
PROVIDERS: ADMIT Internal Medicine; ATTEND Internal Medicine
PROC: 5A09457 Assistance with Respiratory Ventilation, 24-96 Consecutive Hours, Continuous Positive Airway Pressure (ICD-10-PCS; principal; 2018-09-02)
DX: I13.0 Hypertensive heart and chronic kidney disease with heart failure and stage 1 through stage 4 chronic kidney disease, or unspecified chronic kidney disease (principal); I50.23 Acute on chronic systolic (congestive) heart failure; N17.9 Acute kidney failure, unspecified; R65.10 Systemic inflammatory response syndrome (SIRS) of non-infectious origin without acute organ dysfunction; N18.4 Chronic kidney disease, stage 4 (severe); E10.22 Type 1 diabetes mellitus with diabetic chronic kidney disease; R07.9 Chest pain, unspecified; R06.03 Acute respiratory distress; E10.65 Type 1 diabetes mellitus with hyperglycemia; I25.10 Atherosclerotic heart disease of native coronary artery without angina pectoris; I44.7 Left bundle-branch block, unspecified; I44.0 Atrioventricular block, first degree; I42.9 Cardiomyopathy, unspecified; N40.0 Benign prostatic hyperplasia without lower urinary tract symptoms; M10.9 Gout, unspecified; D50.0 Iron deficiency anemia secondary to blood loss (chronic); Z95.5 Presence of coronary angioplasty implant and graft
CPT/HCPCS: 71045; 76775; 80048; 80053; 80061; 81001; 82270; 82550; 82553; 82728; 82962; 83036; 83540; 83605; 83735; 83880; 84100; 84155; 84300; 84439; 84443; 84484; 85014; 85018; 85025; 85610; 85730; 87086; 89190; 93005; 94644; 94660; 96365; 96375; 97161; 97164; 97166; J1200; J1815; J1956; J2060; J2405; J2916; J3370; J3475; J7040

== ENCOUNTER 2018-10-23 10:06 | Inpatient (IN) | payer OTHER, MEDICAID ==
[~2018-10-23] VITALS: Ht 165.1 cm; Wt 85.9 kg
[~2018-10-23 10:06] MED LIST changes: -ASPI-817 PO; +ASPI-903 PO; +ATOR20TA38 PO; -BUME1TAB PO; +BUME1TAB3 PO; +CARV6.25 PO; -CARV6.2579 PO; +HYDR-3672 PO; +ICOS1CAP PO; +LANT3I SC; -OMEG1CAP2 PO
[2018-10-23] MEDS ORDERED: FUROSEMIDE 40 MG INJ IV STA (10:19)
[2018-10-23] MEDS ORDERED: ASPIRIN 81 MG TAB PO STA (10:19)
[2018-10-23] MEDS ORDERED: NITROGLYCERIN 2% 1 GM OINT PKT TD STA (10:19)
[2018-10-23] MEDS ORDERED: ONDANSETRON 4 MG INJ IV PRN ×2 (14:00→17:00)
[2018-10-23] MEDS ORDERED: ACETAMINOPHEN 325 MG TAB PO PRN ×2 (14:00→17:00)
[2018-10-23 15:59] VITALS: Ht 165.1 cm; Wt 85.9 kg
[2018-10-23 16:22] VITALS: BP 173/92; PULSE 59; RESP 18
[2018-10-23] MEDS ORDERED: HYDROCODONE/APAP (5/325) TAB PO PRN (17:00)
[2018-10-23] MEDS ORDERED: ALBUTEROL/IPRATROPIUM (NEB) 3 ML AMP HHN PRN (17:00)
[2018-10-23] MEDS ORDERED: morphine 2 MG INJ IV PRN (17:00)
[2018-10-23] MEDS ORDERED: hydrALAzine 20 MG INJ IV PRN (17:00)
[2018-10-23] MEDS ORDERED: MAGNESIUM HYDROXIDE 30ML CUP PO PRN (17:00)
[2018-10-23] MEDS ORDERED: FUROSEMIDE 40 MG INJ IV ONE (17:00)
[2018-10-23] MEDS ORDERED: NACL 0.9% 3 ML SYG IV SCH (17:00)
[2018-10-23] MEDS ORDERED: BISACODYL 10 MG SUPP PR PRN (17:00)
[2018-10-23] MEDS ORDERED: GLUCOSE GEL 15 GRAM TUBE PO PRN ×2 (17:30)
[2018-10-23] MEDS ORDERED: DEXTROSE 50% 50 ML SYRINGE IV PRN ×2 (17:30)
[2018-10-23] MEDS ORDERED: GLUCAGON 1 MG INJ IM PRN (17:30)
[2018-10-23] MEDS ORDERED: GLUCOSE GEL 15 GRAM TUBE BUCCAL PRN (17:30)
[2018-10-23] MEDS: INSULIN ASPART [NOVOLOG] 3 ML PEN SC SCH ×2 (17:31→20:42)
[2018-10-23 20:00] VITALS: BP 148/78; PULSE 57; RESP 18
[2018-10-23] MEDS: INSULIN GLARGINE [LANTus] (100 UNITS/ML) SYG SC SCH (20:42)
[2018-10-23] MEDS: APIXABAN 5 MG TABLET PO SCH (20:48)
[2018-10-23] MEDS: FISH OIL 1,000 MG CAP PO SCH (20:49)
[2018-10-23] MEDS: ATORVASTATIN 20 MG TAB PO SCH (20:49)
[2018-10-23] MEDS: ALBUTEROL/IPRATROPIUM (NEB) 3 ML AMP HHN SCH (21:21)
[2018-10-24] VITALS: BP 142/81; PULSE 62; RESP 18
[2018-10-24] MEDS ORDERED: ZOLPIDEM 5 MG TAB PO PRN ×2 (00:30)
[2018-10-24] MEDS: ACCU-CHEK XX SCH (02:00)
[2018-10-24 04:00] VITALS: BP 153/85; PULSE 61; RESP 18
[2018-10-24] MEDS: PANTOPRAZOLE (EC) 40 MG TAB PO SCH (06:52)
[2018-10-24 07:34] VITALS: BP 149/87; PULSE 68; RESP 18
[2018-10-24] MEDS: INSULIN ASPART [NOVOLOG] 3 ML PEN SC SCH ×4 (07:55→21:04)
[2018-10-24] MEDS: ASPIRIN 81 MG TAB PO SCH (08:19)
[2018-10-24] MEDS: BUMETANIDE 1 MG TAB PO SCH ×2 (08:19→08:57)
[2018-10-24] MEDS: FISH OIL 1,000 MG CAP PO SCH ×2 (08:19→20:35)
[2018-10-24] MEDS: ISOSORBIDE MONONITRATE(SR)30 MG TAB PO SCH (08:19)
[2018-10-24] MEDS: APIXABAN 5 MG TABLET PO SCH ×2 (08:19→20:35)
[2018-10-24] MEDS: THIAMINE 100 MG TAB PO SCH (08:19)
[2018-10-24] MEDS: ALBUTEROL/IPRATROPIUM (NEB) 3 ML AMP HHN SCH ×4 (08:23→20:39)
[2018-10-24] MEDS ORDERED: METOLAZONE 5 MG TAB PO ONE (08:30)
[2018-10-24] MEDS: BUMETANIDE 1 MG INJ IV SCH ×2 (08:57→17:03)
[2018-10-24 12:06] VITALS: BP 150/82; PULSE 62; RESP 18
[2018-10-24 16:46] VITALS: BP 148/68; PULSE 67; RESP 18
[2018-10-24 19:50] VITALS: BP 154/96; PULSE 62; RESP 19
[2018-10-24] MEDS: ATORVASTATIN 20 MG TAB PO SCH (20:35)
[2018-10-24] MEDS: INSULIN GLARGINE [LANTus] (100 UNITS/ML) SYG SC SCH (21:04)
[2018-10-25 00:05] VITALS: BP 145/90; PULSE 65; RESP 19
[2018-10-25] MEDS: ACCU-CHEK XX SCH (02:07)
[2018-10-25 04:53] VITALS: BP 142/88; PULSE 62; RESP 19
[2018-10-25] MEDS: PANTOPRAZOLE (EC) 40 MG TAB PO SCH (05:21)
[2018-10-25] MEDS: BUMETANIDE 1 MG INJ IV SCH ×2 (05:21→17:16)
[2018-10-25 07:10] VITALS: BP 158/95; PULSE 59; RESP 20
[2018-10-25] MEDS ORDERED: METOLAZONE 5 MG TAB PO ONE (07:30)
[2018-10-25] MEDS: INSULIN ASPART [NOVOLOG] 3 ML PEN SC SCH ×4 (07:51→20:32)
[2018-10-25] MEDS: ALBUTEROL/IPRATROPIUM (NEB) 3 ML AMP HHN SCH ×4 (08:00→20:06)
[2018-10-25] MEDS: APIXABAN 5 MG TABLET PO SCH ×2 (08:23→20:23)
[2018-10-25] MEDS: FISH OIL 1,000 MG CAP PO SCH ×2 (08:23→20:23)
[2018-10-25] MEDS: THIAMINE 100 MG TAB PO SCH (08:23)
[2018-10-25] MEDS: ASPIRIN 81 MG TAB PO SCH (08:23)
[2018-10-25] MEDS: ISOSORBIDE MONONITRATE(SR)30 MG TAB PO SCH ×2 (08:24→20:23)
[2018-10-25] MEDS: BUMETANIDE 1 MG TAB PO SCH (08:26)
[2018-10-25 11:24] VITALS: BP 163/91; PULSE 64; RESP 18
[2018-10-25 16:00] VITALS: BP_SYST 163; BP_SYST 91; BP_DIAS 91; PULSE 65; RESP 19
[2018-10-25 19:51] VITALS: BP 156/89; PULSE 65; RESP 18
[2018-10-25] MEDS: ATORVASTATIN 20 MG TAB PO SCH (20:22)
[2018-10-25] MEDS: INSULIN GLARGINE [LANTus] (100 UNITS/ML) SYG SC SCH (20:29)
[2018-10-26 00:25] VITALS: BP 148/85; PULSE 69; RESP 18
[2018-10-26] MEDS: ACCU-CHEK XX SCH ×2 (01:30→21:45)
[2018-10-26 04:34] VITALS: BP 151/82; PULSE 72; RESP 18
[2018-10-26] MEDS: BUMETANIDE 1 MG INJ IV SCH ×2 (05:10→17:05)
[2018-10-26] MEDS: PANTOPRAZOLE (EC) 40 MG TAB PO SCH (05:11)
[2018-10-26 07:18] VITALS: BP 167/80; PULSE 60; RESP 18
[2018-10-26] MEDS ORDERED: POTASSIUM CHLORIDE (SR) 20 MEQ TAB PO STA (07:43)
[2018-10-26] MEDS: INSULIN ASPART [NOVOLOG] 3 ML PEN SC SCH ×4 (07:46→21:00)
[2018-10-26] MEDS: FISH OIL 1,000 MG CAP PO SCH ×2 (07:58→21:18)
[2018-10-26] MEDS: THIAMINE 100 MG TAB PO SCH (07:58)
[2018-10-26] MEDS: ASPIRIN 81 MG TAB PO SCH (07:59)
[2018-10-26] MEDS: APIXABAN 5 MG TABLET PO SCH ×2 (07:59→21:18)
[2018-10-26] MEDS: ISOSORBIDE MONONITRATE(SR)30 MG TAB PO SCH ×2 (07:59→21:18)
[2018-10-26] MEDS ORDERED: ACETAZOLAMIDE 500 MG INJ IV ONE (08:00)
[2018-10-26] MEDS: ALBUTEROL/IPRATROPIUM (NEB) 3 ML AMP HHN SCH ×4 (08:21→20:07)
[2018-10-26 11:37] VITALS: BP 139/74; PULSE 59; RESP 20
[2018-10-26 15:36] VITALS: BP 152/86; PULSE 68; RESP 19
[2018-10-26 19:26] VITALS: BP 129/76; PULSE 66; RESP 18
[2018-10-26] MEDS: ATORVASTATIN 20 MG TAB PO SCH (21:19)
[2018-10-26] MEDS: INSULIN GLARGINE [LANTus] (100 UNITS/ML) SYG SC SCH (21:44)
[2018-10-27 00:17] VITALS: BP 126/69; PULSE 69; RESP 19
[2018-10-27 04:52] VITALS: BP 148/75; PULSE 67; RESP 18
[2018-10-27] MEDS: BUMETANIDE 1 MG INJ IV SCH ×2 (06:01→18:12)
[2018-10-27] MEDS: PANTOPRAZOLE (EC) 40 MG TAB PO SCH (06:01)
[2018-10-27 07:09] VITALS: BP 153/87; PULSE 64; RESP 18
[2018-10-27] MEDS: INSULIN ASPART [NOVOLOG] 3 ML PEN SC SCH ×4 (07:26→20:48)
[2018-10-27] MEDS: ALBUTEROL/IPRATROPIUM (NEB) 3 ML AMP HHN SCH ×4 (07:46→21:30)
[2018-10-27] MEDS: FISH OIL 1,000 MG CAP PO SCH ×2 (08:16→20:32)
[2018-10-27] MEDS: THIAMINE 100 MG TAB PO SCH (08:16)
[2018-10-27] MEDS: APIXABAN 5 MG TABLET PO SCH ×2 (08:16→20:33)
[2018-10-27] MEDS: ASPIRIN 81 MG TAB PO SCH (08:16)
[2018-10-27] MEDS: ISOSORBIDE MONONITRATE(SR)30 MG TAB PO SCH ×2 (08:17→20:33)
[2018-10-27] MEDS ORDERED: POTASSIUM CHLORIDE (SR) 20 MEQ TAB PO STA (10:30)
[2018-10-27 11:00] VITALS: BP 138/78; PULSE 75; RESP 18
[2018-10-27 15:14] VITALS: BP 112/60; PULSE 65; RESP 18
[2018-10-27 20:00] VITALS: BP 148/62; PULSE 69; RESP 20
[2018-10-27] MEDS: ATORVASTATIN 20 MG TAB PO SCH (20:33)
[2018-10-27] MEDS: INSULIN GLARGINE [LANTus] (100 UNITS/ML) SYG SC SCH (20:47)
[2018-10-28] VITALS (7 sets, daily range): BP systolic 128–149; BP diastolic 67–79; PULSE 62–78; RESP 18–20
[2018-10-28] MEDS ORDERED: ZOLPIDEM 5 MG TAB PO ONE (00:44)
[2018-10-28] MEDS: ACCU-CHEK XX SCH (02:00)
[2018-10-28] MEDS: PANTOPRAZOLE (EC) 40 MG TAB PO SCH (06:22)
[2018-10-28] MEDS: BUMETANIDE 1 MG INJ IV SCH (06:22)
[2018-10-28] MEDS: INSULIN ASPART [NOVOLOG] 3 ML PEN SC SCH ×4 (08:08→21:24)
[2018-10-28] MEDS: THIAMINE 100 MG TAB PO SCH (08:54)
[2018-10-28] MEDS: APIXABAN 5 MG TABLET PO SCH ×2 (08:54→20:17)
[2018-10-28] MEDS: ISOSORBIDE MONONITRATE(SR)30 MG TAB PO SCH ×2 (08:54→20:16)
[2018-10-28] MEDS: ASPIRIN 81 MG TAB PO SCH (08:54)
[2018-10-28] MEDS: FISH OIL 1,000 MG CAP PO SCH ×2 (08:54→20:15)
[2018-10-28] MEDS: ALBUTEROL/IPRATROPIUM (NEB) 3 ML AMP HHN SCH ×3 (09:57→20:48)
[2018-10-28] MEDS: ATORVASTATIN 20 MG TAB PO SCH (20:16)
[2018-10-28] MEDS: INSULIN GLARGINE [LANTus] (100 UNITS/ML) SYG SC SCH (21:24)
[2018-10-29] MEDS: ACCU-CHEK XX SCH (02:29)
[2018-10-29 04:08] VITALS: BP 116/60; PULSE 65; RESP 18
[2018-10-29] MEDS: PANTOPRAZOLE (EC) 40 MG TAB PO SCH (05:42)
[2018-10-29] MEDS: INSULIN ASPART [NOVOLOG] 3 ML PEN SC SCH ×4 (07:37→21:00)
[2018-10-29] MEDS ORDERED: POTASSIUM CHLORIDE (SR) 20 MEQ TAB PO STA (07:49)
[2018-10-29 07:58] VITALS: BP 131/63; PULSE 62; RESP 18
[2018-10-29] MEDS: ALBUTEROL/IPRATROPIUM (NEB) 3 ML AMP HHN SCH ×4 (08:00→20:44)
[2018-10-29] MEDS: FISH OIL 1,000 MG CAP PO SCH ×2 (09:41→20:49)
[2018-10-29] MEDS: ISOSORBIDE MONONITRATE(SR)30 MG TAB PO SCH ×2 (09:42→20:49)
[2018-10-29] MEDS: THIAMINE 100 MG TAB PO SCH (09:42)
[2018-10-29] MEDS: ASPIRIN 81 MG TAB PO SCH (09:43)
[2018-10-29] MEDS: APIXABAN 5 MG TABLET PO SCH ×2 (09:43→20:49)
[2018-10-29 11:54] VITALS: BP 112/57; PULSE 60; RESP 18
[2018-10-29 16:55] VITALS: BP 118/62; PULSE 69; RESP 18
[2018-10-29 20:00] VITALS: BP 147/77; PULSE 68; RESP 18
[2018-10-29] MEDS: ATORVASTATIN 20 MG TAB PO SCH (20:49)
[2018-10-29] MEDS: INSULIN GLARGINE [LANTus] (100 UNITS/ML) SYG SC SCH (21:00)
[2018-10-30 00:07] VITALS: BP 140/74; PULSE 77; RESP 18
[2018-10-30] MEDS: ACCU-CHEK XX SCH (03:03)
[2018-10-30 04:00] VITALS: BP 120/57; PULSE 66; RESP 18
[2018-10-30] MEDS: PANTOPRAZOLE (EC) 40 MG TAB PO SCH (06:20)
[2018-10-30] MEDS: INSULIN ASPART [NOVOLOG] 3 ML PEN SC SCH ×4 (07:55→20:59)
[2018-10-30] MEDS: ALBUTEROL/IPRATROPIUM (NEB) 3 ML AMP HHN SCH ×4 (08:03→20:15)
[2018-10-30 08:21] VITALS: BP 151/75; PULSE 67; RESP 18
[2018-10-30] MEDS: THIAMINE 100 MG TAB PO SCH (08:26)
[2018-10-30] MEDS: FISH OIL 1,000 MG CAP PO SCH ×2 (08:26→20:32)
[2018-10-30] MEDS: APIXABAN 5 MG TABLET PO SCH ×2 (08:27→20:32)
[2018-10-30] MEDS: ISOSORBIDE MONONITRATE(SR)30 MG TAB PO SCH ×2 (08:27→20:32)
[2018-10-30] MEDS: BUMETANIDE 1 MG TAB PO SCH (08:27)
[2018-10-30] MEDS: ASPIRIN 81 MG TAB PO SCH (08:27)
[2018-10-30] MEDS ORDERED: POTASSIUM CHLORIDE (SR) 20 MEQ TAB PO STA (09:52)
[2018-10-30 12:00] VITALS: BP 134/67; PULSE 67; RESP 18
[2018-10-30 15:30] VITALS: BP 141/77; PULSE 69; RESP 18
[2018-10-30 19:14] VITALS: BP 148/73; PULSE 72; RESP 19
[2018-10-30] MEDS: ATORVASTATIN 20 MG TAB PO SCH (20:32)
[2018-10-30] MEDS: INSULIN GLARGINE [LANTus] (100 UNITS/ML) SYG SC SCH (20:59)
[2018-10-31] VITALS (7 sets, daily range): BP systolic 130–151; BP diastolic 67–78; PULSE 60–78; RESP 18–19
[2018-10-31] MEDS: ACCU-CHEK XX SCH (02:16)
[2018-10-31] MEDS: PANTOPRAZOLE (EC) 40 MG TAB PO SCH (05:22)
[2018-10-31] MEDS: ALBUTEROL/IPRATROPIUM (NEB) 3 ML AMP HHN SCH ×4 (07:40→20:02)
[2018-10-31] MEDS: INSULIN ASPART [NOVOLOG] 3 ML PEN SC SCH ×4 (07:55→20:48)
[2018-10-31] MEDS: ASPIRIN 81 MG TAB PO SCH (09:40)
[2018-10-31] MEDS: FISH OIL 1,000 MG CAP PO SCH ×2 (09:40→20:40)
[2018-10-31] MEDS: THIAMINE 100 MG TAB PO SCH (09:40)
[2018-10-31] MEDS: BUMETANIDE 1 MG TAB PO SCH (09:41)
[2018-10-31] MEDS: ISOSORBIDE MONONITRATE(SR)30 MG TAB PO SCH ×2 (09:41→20:41)
[2018-10-31] MEDS: APIXABAN 5 MG TABLET PO SCH ×2 (09:43→20:41)
[2018-10-31] MEDS: ATORVASTATIN 20 MG TAB PO SCH (20:40)
[2018-10-31] MEDS: INSULIN GLARGINE [LANTus] (100 UNITS/ML) SYG SC SCH (20:48)
[2018-11-01] MEDS: ACCU-CHEK XX SCH (02:00)
[2018-11-01 03:31] VITALS: BP 144/70; PULSE 70; RESP 19
[2018-11-01] MEDS: PANTOPRAZOLE (EC) 40 MG TAB PO SCH (05:34)
[2018-11-01] MEDS ORDERED: BISACODYL (EC) 5 MG TAB PO PRN (06:00)
[2018-11-01] MEDS ORDERED: POTASSIUM CHLORIDE (SR) 20 MEQ TAB PO STA (07:31)
[2018-11-01 07:37] VITALS: BP 138/74; PULSE 68; RESP 20
[2018-11-01] MEDS: ISOSORBIDE MONONITRATE(SR)30 MG TAB PO SCH (08:09)
[2018-11-01] MEDS: THIAMINE 100 MG TAB PO SCH (08:10)
[2018-11-01] MEDS: BUMETANIDE 1 MG TAB PO SCH (08:10)
[2018-11-01] MEDS: FISH OIL 1,000 MG CAP PO SCH (08:11)
[2018-11-01] MEDS: APIXABAN 5 MG TABLET PO SCH (08:11)
[2018-11-01] MEDS: ASPIRIN 81 MG TAB PO SCH (08:11)
[2018-11-01] MEDS: INSULIN ASPART [NOVOLOG] 3 ML PEN SC SCH ×2 (08:16→12:09)
[2018-11-01] MEDS: ALBUTEROL/IPRATROPIUM (NEB) 3 ML AMP HHN SCH (09:27)
[2018-11-01 11:31] VITALS: BP 142/78; PULSE 72; RESP 20
== END 2018-11-01 13:50 | disposition home health service (06) | DRG 291 ==
LOC: E/R 10:06 → TEL 13:50
PROVIDERS: ADMIT Internal Medicine; ATTEND Internal Medicine
DX: I13.0 Hypertensive heart and chronic kidney disease with heart failure and stage 1 through stage 4 chronic kidney disease, or unspecified chronic kidney disease (principal); J96.01 Acute respiratory failure with hypoxia; I50.23 Acute on chronic systolic (congestive) heart failure; N17.9 Acute kidney failure, unspecified; I47.2 Ventricular tachycardia; N18.4 Chronic kidney disease, stage 4 (severe); I42.9 Cardiomyopathy, unspecified; E11.8 Type 2 diabetes mellitus with unspecified complications; D64.9 Anemia, unspecified; E78.5 Hyperlipidemia, unspecified; N18.9 Chronic kidney disease, unspecified; Z95.5 Presence of coronary angioplasty implant and graft; M10.9 Gout, unspecified; Z91.14 Patient's other noncompliance with medication regimen; Z91.19 Patient's noncompliance with other medical treatment and regimen
CPT/HCPCS: 36415; 71045; 80048; 80053; 80061; 81001; 81003; 82043; 82550; 82553; 82962; 83036; 83735; 83880; 84100; 84155; 84300; 84436; 84443; 84479; 84484; 85025; 85610; 85730; 93005; 94640; 94664; 96374; 97110; 97116; 97162; 97530; J0360; J1120; J1815; J1940